=== PATIENT | female | born 1960 | race Caucasian/White ===

== ENCOUNTER 2017-11-11 19:15 | Inpatient (IN) | payer OTHER ==
--- NOTE | 2017-11-11 20:04 | PDOC ---
Rapid Medical Evaluation Time Seen by Provider: 11/11/17 19:58 Medical Evaluation: Allergies Allergy/AdvReac Type Severity Reaction Status Date / Time lamotrigine [From Lamictal] Allergy Verified 02/19/16 11:11 I have performed a brief in-person evaluation of this patient. The patient presents with a chief complaint of: chronic alcoholic here for weakness and fatigue. Dr. Jeong is her PMD and wants her admitted Pertinent physical exam findings: patient is intoxicated I have ordered the following: labs, UA/culture The patient will proceed to the ED for further evaluation.
[2017-11-11 20:42] LABS: BASO % 0.3 % (0-2.0); EOS % 0.2 % (0-4.5); HEMATOCRIT 22.9 % (32.4-45.2); HEMOGLOBIN 7.7 GM/dL (10.7-15.3); LYMPH % 14.3 % (8-40); MCHC 33.7 g/dl (32.0-36.0); MEAN CELL VOLUME 100.9 fl (80-96); MEAN PLT VOLUME 7.8 fl (7.5-11.1); NEUT % 74.2 % (42.8-82.8); RBC 2.27 M/mm3 (3.60-5.2); RDW 16.5 % (11.6-15.6); WHITE BLOOD COUNT 3.4 K/mm3 (4.0-10.0)
[2017-11-11 20:47] LABS: PLATELET COUNT 17 K/MM3 (134-434)
[2017-11-11 21:21] LABS: ALBUMIN 3.2 g/dl (3.4-5.0); ANION GAP 15 (8-16); BILIRUBIN,TOTAL 3.6 mg/dL (0.2-1.0); BLOOD UREA NITROGEN 15 mg/dL (7-18); CALCIUM 7.7 mg/dL (8.5-10.1); CHLORIDE 102 mmol/L (98-107); CO2 19 mmol/L (21-32); CREATININE 1.3 mg/dL (0.55-1.02); GLUCOSE,RANDOM 204 mg/dL (74-106); POTASSIUM 3.5 mmol/L (3.5-5.1); SGOT/AST 94 U/L (15-37); SGPT/ALT 23 U/L (12-78); SODIUM 136 mmol/L (136-145); TOT PROT 7.7 g/dl (6.4-8.2)
[2017-11-11 21:24] LABS: ALK PHOS 186 U/L (45-117); N-TERMINAL BNP 22.95 pg/ml (5-125)
[2017-11-11 23:17] LABS: INR 1.49 (0.82-1.09); PROTHROMBIN TIME (PATIENT) 16.8 SEC (9.98-11.88)
[2017-11-12 00:02] LABS: URINE APPEARANCE CLEAR; URINE BILIRUBIN NEGATIVE (<2.0 mg/dL); URINE BLOOD 1+ (NEGATIVE); URINE COLOR YELLOW; URINE GLUCOSE (UA) NEGATIVE (NEGATIVE); URINE KETONE TRACE (NEGATIVE); URINE NITRITE NEGATIVE (NEGATIVE); URINE PROTEIN NEGATIVE (NEGATIVE); URINE UROBILINOGEN 4.0 E.U/dl mg/dL (0.2-1.0)
[2017-11-12 00:08] LABS: URINE LEUK ESTERASE 1+ (NEGATIVE)
[2017-11-12 00:09] LABS: EPI CELLS RARE /HPF (FEW); URINE BACTERIA MANY /hpf (NONE SEEN)
--- NOTE | 2017-11-12 00:19 | PDOC ---
History of Present Illness - General History Source: Patient Exam Limitations: Intoxication - History of Present Illness Initial Comments: The patient is a 56 year old female accompanied with her boyfriend, with a significant past medical history of Cirrhosis, hypothyroid disease, thrombocytopenia, anemia, and acid reflux who presents to the emergency department for evaluation of chronic episodes of generalized weakness. The patient is a poor historian due to intoxication at presentation (alcohol in breath). The patients boyfriend reports she has been falling and that her legs have been weak. The patients boyfriend reports her nose has been bleeding for some time. He denies witnessing any falls or trauma today. The patient denies chest pain, shortness of breath, headache, and dizziness. Allergies: Lamotrigine Past surgical history: 3x . Social history: Alcohol consumption noted to be 1 pint of whiskey daily. Use of cocaine reported. No reported cigarette use. PCP: Dr. Jeong Contact: Ten Pathak [phone] <Jaden Abreu - Last Filed: 11/12/17 02:02> <Brigitte Arboleda - Last Filed: 11/12/17 02:13> - General Chief Complaint: Weakness Stated Complaint: FATIGUE Time Seen by Provider: 11/11/17 19:58 Past History <Jaden Abreu - Last Filed: 11/12/17 02:02> - Past Medical History Anemia: No Asthma: No Cancer: No Cardiac Disorders: No CVA: No COPD: No CHF: No Dementia: No Diabetes: No GI Disorders: Yes (ACID REFLUX) Disorders: No HTN: No Hypercholesterolemia: No Kidney Stones: No Liver Disease: Yes (Cirrhosis) Seizures: No Thyroid Disease: Yes (HYPOTHYROID DISEASE) - Surgical History Abdominal Surgery: No Appendectomy: No Cardiac Surgery: No Cholecystectomy: No Lung Surgery: No Neurologic Surgery: No Orthopedic Surgery: Yes (L ankle 12/08) - Reproductive History PID: No - Suicide/Smoking/Psychosocial Hx Smoking Status: No Smoking History: Never smoked Have you smoked in the past 12 months: No Number of Cigarettes Smoked Daily: 0 Information on smoking cessation initiated: No Hx Alcohol Use: Yes (1 pint whiskey daily) Drug/Substance Use Hx: No Substance Use Type: Alcohol, Cocaine Hx Substance Use Treatment: Yes <Brigitte Arboleda - Last Filed: 11/12/17 02:13> - Past Medical History Allergies/Adverse Reactions: Allergies Allergy/AdvReac Type Severity Reaction Status Date / Time lamotrigine [From Lamictal] Allergy Verified 11/11/17 20:04 Abd/GI Specific PMHX - Complaint Specific PMHX Colitis: No Diverticulitis: No Gall Bladder Disease: No GERD: Yes Hepatitis: No Irritable Bowel Synd (IBS): No Pancreatitis: Yes (TX IN AT AGE 47 YRS OLD.) GI Ulcer Disease: No <Brigitte Arboleda - Last Filed: 11/12/17 02:13> Review of Systems - Review of Systems Able to Perform ROS?: No (Intoxicated.) Comments:: ROS is unable to be obtained due to patients current mental status: inebriated. <Jaden Abreu - Last Filed: 11/12/17 02:02> *Physical Exam - Vital Signs Last Vital Signs Temp Pulse Resp BP Pulse Ox 97.9 F 85 18 145/77 99 11/12/17 00:09 11/12/17 00:09 11/12/17 00:09 11/12/17 00:09 11/12/17 00:09 - Physical Exam Comments: GENERAL: (+)Intoxicated. (+)Ataxic. Well developed and well nourished. HEENT: (+)Dried blood in nares. No scalp lacerations or hematoma. Normocephalic, atraumatic. PERRLA, EOMI. No conjunctival pallor. Sclera are non- icteric. NECK: Supple. Full ROM. No JVD. Carotid pulses 2+ and symmetric, without bruits. No thyromegaly. No lymphadenopathy. CARDIOVASCULAR: Regular rate and rhythm. No murmurs, rubs, or gallops. Distal pulses are 2+ and symmetric. PULMONARY: No evidence of respiratory distress. Lungs clear to auscultation bilaterally. No wheezing, rales or rhonchi. ABDOMINAL: (+)Ecchymosis in right lower abdomen. Soft. Non-tender. Non-distended. No rebound or guarding. No organomegaly. Normoactive bowel sounds. MUSCULOSKELETAL Normal range of motion at all joints. No bony deformities or tenderness. No CVA tenderness. BACK: (+)Right flank 10cm x 10cm ecchymosis. (+)Upper right rib cage 4cm x 10cm ecchymosis. EXTREMITIES: (+)Scattered ecchymosis on extremities.No cyanosis. No clubbing. No calf tenderness. SKIN: Warm and dry. Normal capillary refill. No rashes. No jaundice. NEUROLOGICAL: Alert, awake, appropriate. Cranial nerves 2-12 intact. No deficits to light touch and temperature in face, upper extremities and lower extremities. No motor deficits in the in face, upper extremities and lower extremities. Normoreflexic in the upper and lower extremities. Unsteady gait. Conversant. PSYCHIATRIC: EtOH intoxication. Good eye contact. <Jaden Abreu - Last Filed: 11/12/17 02:02> - Vital Signs Last Vital Signs Temp Pulse Resp BP Pulse Ox 97.9 F 85 18 145/77 99 11/12/17 00:09 11/12/17 00:09 11/12/17 00:09 11/12/17 00:09 11/12/17 00:09 <Brigitte Arboleda - Last Filed: 11/12/17 02:13> ED Treatment Course - LABORATORY CBC & Chemistry Diagram: 11/11/17 20:26 11/11/17 20:26 - ADDITIONAL ORDERS Additional order review: Laboratory Results 11/11/17 11/11/17 11/11/17 23:49 23:43 22:56 PT with INR 16.80 H INR 1.49 H Sodium Potassium Chloride Carbon Dioxide Anion Gap BUN Creatinine Creat Clearance w eGFR Random Glucose Calcium Total Bilirubin AST ALT Alkaline Phosphatase Creatine Kinase Creatine Kinase Index CK-MB (CK-2) Troponin I B-Natriuretic Peptide Total Protein Albumin Urine Color Yellow Urine Appearance Clear Urine pH 7.0 Ur Specific [place] 1.004 Urine Protein Negative Urine Glucose (UA) Negative Urine Ketones Trace H Urine Blood 1+ H Urine Nitrite Negative Urine Bilirubin Negative Urine Urobilinogen 4.0 e.u/dl H Ur Leukocyte Esterase 1+ H Urine WBC (Auto) 12 Urine RBC (Auto) 1 Ur Epithelial Cells Rare Urine Bacteria Many Alcohol, Quantitative Blood Type O NEGATIVE Antibody Screen Negative 11/11/17 11/11/17 11/11/17 22:56 22:56 20:26 PT with INR INR Sodium Potassium Chloride Carbon Dioxide Anion Gap BUN Creatinine Creat Clearance w eGFR Random Glucose Calcium Total Bilirubin AST ALT Alkaline Phosphatase Creatine Kinase 152 Creatine Kinase Index 1.0 CK-MB (CK-2) 1.565 Troponin I < 0.02 B-Natriuretic Peptide Total Protein Albumin Urine Color Urine Appearance Urine pH Ur Specific [place] Urine Protein Urine Glucose (UA) Urine Ketones Urine Blood Urine Nitrite Urine Bilirubin Urine Urobilinogen Ur Leukocyte Esterase Urine WBC (Auto) Urine RBC (Auto) Ur Epithelial Cells Urine Bacteria Alcohol, Quantitative 322.36 H* Blood Type Cancelled Antibody Screen Cancelled 11/11/17 20:26 PT with INR INR Sodium 136 Potassium 3.5 Chloride 102 Carbon Dioxide 19 L Anion Gap 15 BUN 15 Creatinine 1.3 H Creat Clearance w eGFR 42.68 Random Glucose 204 H Calcium 7.7 L Total Bilirubin 3.6 H D AST 94 H ALT 23 Alkaline Phosphatase 186 H Creatine Kinase Creatine Kinase Index CK-MB (CK-2) Troponin I B-Natriuretic Peptide 22.95 Total Protein 7.7 Albumin 3.2 L Urine Color Urine Appearance Urine pH Ur Specific [place] Urine Protein Urine Glucose (UA) Urine Ketones Urine Blood Urine Nitrite Urine Bilirubin Urine Urobilinogen Ur Leukocyte Esterase Urine WBC (Auto) Urine RBC (Auto) Ur Epithelial Cells Urine Bacteria Alcohol, Quantitative Blood Type Antibody Screen 11/11/17 20:26 RBC 2.27 L MCV 100.9 H MCHC 33.7 RDW 16.5 H MPV 7.8 D Neutrophils % 74.2 D Lymphocytes % 14.3 D Monocytes % 11.0 H Eosinophils % 0.2 D Basophils % 0.3 <Jaden Abreu - Last Filed: 11/12/17 02:02> - LABORATORY CBC & Chemistry Diagram: 11/11/17 20:26 11/11/17 20:26 - ADDITIONAL ORDERS Additional order review: Laboratory Results 11/11/17 11/11/17 11/11/17 23:49 22:56 22:56 PT with INR 16.80 H INR 1.49 H Sodium Potassium Chloride Carbon Dioxide Anion Gap BUN Creatinine Creat Clearance w eGFR Random Glucose Calcium Total Bilirubin AST ALT Alkaline Phosphatase Creatine Kinase Creatine Kinase Index CK-MB (CK-2) Troponin I B-Natriuretic Peptide Total Protein Albumin Urine Color Yellow Urine Appearance Clear Urine pH 7.0 Ur Specific [place] 1.004 Urine Protein Negative Urine Glucose (UA) Negative Urine Ketones Trace H Urine Blood 1+ H Urine Nitrite Negative Urine Bilirubin Negative Urine Urobilinogen 4.0 e.u/dl H Ur Leukocyte Esterase 1+ H Urine WBC (Auto) 12 Urine RBC (Auto) 1 Ur Epithelial Cells Rare Urine Bacteria Many Alcohol, Quantitative 322.36 H* Blood Type Antibody Screen 11/11/17 11/11/17 11/11/17 22:56 20:26 20:26 PT with INR INR Sodium 136 Potassium 3.5 Chloride 102 Carbon Dioxide 19 L Anion Gap 15 BUN 15 Creatinine 1.3 H Creat Clearance w eGFR 42.68 Random Glucose 204 H Calcium 7.7 L Total Bilirubin 3.6 H D AST 94 H ALT 23 Alkaline Phosphatase 186 H Creatine Kinase 152 Creatine Kinase Index 1.0 CK-MB (CK-2) 1.565 Troponin I < 0.02 B-Natriuretic Peptide 22.95 Total Protein 7.7 Albumin 3.2 L Urine Color Urine Appearance Urine pH Ur Specific [place] Urine Protein Urine Glucose (UA) Urine Ketones Urine Blood Urine Nitrite Urine Bilirubin Urine Urobilinogen Ur Leukocyte Esterase Urine WBC (Auto) Urine RBC (Auto) Ur Epithelial Cells Urine Bacteria Alcohol, Quantitative Blood Type Cancelled Antibody Screen Cancelled 11/11/17 20:26 RBC 2.27 L MCV 100.9 H MCHC 33.7 RDW 16.5 H MPV 7.8 D Neutrophils % 74.2 D Lymphocytes % 14.3 D Monocytes % 11.0 H Eosinophils % 0.2 D Basophils % 0.3 - RADIOLOGY Radiology Studies Ordered: Category Date Time Status ABDOMEN & PELVIS CT W/O CONTR [CT] Stat CT Scan 11/11/17 22:44 Taken CHEST X-RAY PORTABLE* [RAD] Stat Radiology 11/11/17 23:33 Taken <Brigitte Arboleda - Last Filed: 11/12/17 02:13> Medical Decision Making - Critical Care Time Total Critical Care Time (minutes): 60 Critical Care Statement: The care of this patient involved high complexity decision making to prevent further life threatening deterioration of the patient 's condition and/or to evaluate & treat vital organ system(s) failure or risk of failure. - Medical Decision Making Consulted with Dr. Lee at 22:35. <Jaden Abreu - Last Filed: 11/12/17 02:02> - Medical Decision Making 11/12/17 00:19 56-year-old female presents with chief complaint of weakness. Past medical history significant of liver cirrhosis, chronic alcoholism, chronic thrombocytopenia. Patient has extensive ecchymosis to her flank, abdomen and scattered ecchymosis to her extremities, dry blood in her nares, Patient denies any recent trauma on, she denies falling and hitting her head. However, she is alcohol level above 300. I did speak with her boyfriend . He is not aware of her any falling this evening. Hemoglobin is 7, but her platelets are only 17,000. 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 She also will receive 1 unit of packed RBCs 11/12/17 00:49 INR is less than 2, it is equal to 1.49. Therefore, no vitamin K given emergently. CAT scan of the abdomen and pelvis shows splenomegaly with trace perihepatic ascites, cirrhosis, gallstones. There is no retroperitoneal hematoma. Abdominal wall posterior gluteal subcutaneous densities that maybe related to medical injections. 11/12/17 00:56 IVF, "bannana bag " ordered Patient got out bed and urinated on the floor,she was walking in the hallway- she is a fall risk and will be given chemical restrain with ativan for her safety 11/12/17 02:09 <Brigitte Arboleda - Last Filed: 11/12/17 02:13> *DC/Admit/Observation/Transfer - Attestations Scribe Attestion: Documentation prepared by Jaden Abreu, acting as medical manager for Brigitte Arboleda MD. <Jaden Abreu - Last Filed: 11/12/17 02:02> <Brigitte Arboleda - Last Filed: 11/12/17 02:13> Diagnosis at time of Disposition: Decreased platelet count, Intoxication, Advanced cirrhosis of liver, Splenomegaly, Epistaxis
--- NOTE | 2017-11-12 00:37 | HP ---
CHIEF COMPLAINT: Fatigue, Weakness, Alcohol Intoxication PCP: Dr. Jeong HISTORY OF PRESENT ILLNESS: This is a 56 y/o woman with a PMHx of Chronic Alcoholism, Chronic Thrombocytopenia, Liver Cirrhosis, Cocaine Abuse, GERd, Thyroid Disease, Pancreatitis. Who presents to the ED with weakness, fatigue, alcohol intoxication. Patient reports drinking 1 pint of whiskey daily. She reports falling recently, denies LOC or head trauma. 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 History: Father: Alcoholism, DM Mother: CABG 50's 3 Siblings, 3 healthy children Allergies lamotrigine [From Lamictal] Allergy (Verified 11/11/17 20:04) HOME MEDICATIONS: Home Medications Medication Instructions Recorded Omeprazole Magnesium [Prilosec 20 mg PO DAILY 09/17/13 (OTC)] Calcium Carbonate/Vitamin D3 1 each PO DAILY 03/18/16 [Calcium 600-Vit D3 200 Tablet] Vitamin B Complex 1 cap PO DAILY 03/18/16 Zolpidem Tartrate [Ambien] 10 mg PO HS PRN 03/18/16 Chlordiazepoxide [Librium -] 10 mg PO [id number] #8 capsule MDD 05/17/16 40mg Chlordiazepoxide [Librium -] 15 mg PO [id number] #6 capsule MDD 05/17/16 40mg Folic Acid - 1 mg PO DAILY #30 tablet 05/17/16 Levothyroxine [Synthroid -] 100 mcg PO DAILY #90 tablet 05/17/16 REVIEW OF SYSTEMS CONSTITUTIONAL: generalized weakness, malaise Absent: fever, chills, diaphoresis, loss of appetite, weight change HEENT: Absent: rhinorrhea, nasal congestion, throat pain, throat swelling, difficulty swallowing, mouth swelling, ear pain, eye pain, visual changes CARDIOVASCULAR: Absent: chest pain, syncope, palpitations, irregular heart rate, lightheadedness , peripheral edema RESPIRATORY: Absent: cough, shortness of breath, dyspnea with exertion, orthopnea, wheezing, stridor, hemoptysis GASTROINTESTINAL: Absent: abdominal pain, abdominal distension, nausea, vomiting, diarrhea, constipation, melena, hematochezia GENITOURINARY: Absent: dysuria, frequency, urgency, hesitancy, hematuria, flank pain, genital pain MUSCULOSKELETAL: Absent: myalgia, arthralgia, joint swelling, back pain, neck pain SKIN: Absent: rash, itching, pallor HEMATOLOGIC/IMMUNOLOGIC: Absent: easy bleeding, easy bruising, lymphadenopathy, frequent infections ENDOCRINE: Absent: unexplained weight gain, unexplained weight loss, heat intolerance, cold intolerance NEUROLOGIC: unsteady gait, Absent: headache, focal weakness or paresthesias, dizziness, seizure, mental status changes, bladder or bowel incontinence PSYCHIATRIC: Absent: anxiety, depression, suicidal or homicidal ideation, hallucinations. PHYSICAL EXAMINATION Vital Signs - 24 hr 11/11/17 11/11/17 11/12/17 20:05 20:07 00:09 Temperature 98.3 F 97.9 F Pulse Rate 102 H Pulse Rate [ 85 Right Radial] Respiratory 20 20 18 Rate Blood Pressure 146/94 Blood Pressure 145/77 [Right Arm] O2 Sat by Pulse 100 100 99 Oximetry (%) GENERAL: Lethargic but arosuable, in no acute distress. HEAD: Normal with no signs of trauma. EYES: Sclera icteric, pupils equal, round and reactive to light, conjunctiva clear. No lid lag. EARS, NOSE, THROAT: nares patent, dried blood Ears normal, oropharynx clear without exudates. Moist mucous membranes. NECK: Normal range of motion, supple without lymphadenopathy, JVD, or masses. LUNGS: Breath sounds equal, clear to auscultation bilaterally. No wheezes, and no crackles. No accessory muscle use. HEART: Regular rate and rhythm, normal S1 and S2 without murmur, rub or gallop. ABDOMEN: distended, hypoactive bowel sounds,hepatomegaly. Soft, nontender, no guarding, no rebound, no masses. splenomegaly. MUSCULOSKELETAL: Normal range of motion at all joints. No bony deformities or tenderness. No CVA tenderness. UPPER EXTREMITIES: 2+ pulses, warm, well-perfused. No cyanosis. No clubbing. No peripheral edema. LOWER EXTREMITIES: 2+ pulses, warm, well-perfused. No calf tenderness. No peripheral edema. NEUROLOGICAL: Cranial nerves II-XII intact. Normal speech. Gait not observed. PSYCHIATRIC: Cooperative. Limited eye contact. Appropriate mood and affect. SKIN: Eccyhmotic bruising to abdomen, L- posterior scapula noted, Warm, dry, normal turgor, no rashes. normal capillary refill. Laboratory Results - last 24 hr 11/11/17 11/11/17 11/11/17 20:26 20:26 20:26 WBC 3.4 L D RBC 2.27 L Hgb 7.7 L D Hct 22.9 L D MCV 100.9 H MCH 34.0 H MCHC 33.7 RDW 16.5 H Plt Count 17 L* D MPV 7.8 D Neutrophils % 74.2 D Lymphocytes % 14.3 D Monocytes % 11.0 H Eosinophils % 0.2 D Basophils % 0.3 PT with INR INR Sodium 136 Potassium 3.5 Chloride 102 Carbon Dioxide 19 L Anion Gap 15 BUN 15 Creatinine 1.3 H Creat Clearance w eGFR 42.68 Random Glucose 204 H Calcium 7.7 L Total Bilirubin 3.6 H D AST 94 H ALT 23 Alkaline Phosphatase 186 H Creatine Kinase 152 Creatine Kinase Index 1.0 CK-MB (CK-2) 1.565 Troponin I < 0.02 B-Natriuretic Peptide 22.95 Total Protein 7.7 Albumin 3.2 L Urine Color Urine Appearance Urine pH Ur Specific [place] Urine Protein Urine Glucose (UA) Urine Ketones Urine Blood Urine Nitrite Urine Bilirubin Urine Urobilinogen Ur Leukocyte Esterase Urine WBC (Auto) Urine RBC (Auto) Ur Epithelial Cells Urine Bacteria Alcohol, Quantitative Blood Type Antibody Screen 11/11/17 11/11/17 11/11/17 22:56 22:56 22:56 WBC RBC Hgb Hct MCV MCH MCHC RDW Plt Count MPV Neutrophils % Lymphocytes % Monocytes % Eosinophils % Basophils % PT with INR 16.80 H INR 1.49 H Sodium Potassium Chloride Carbon Dioxide Anion Gap BUN Creatinine Creat Clearance w eGFR Random Glucose Calcium Total Bilirubin AST ALT Alkaline Phosphatase Creatine Kinase Creatine Kinase Index CK-MB (CK-2) Troponin I B-Natriuretic Peptide Total Protein Albumin Urine Color Urine Appearance Urine pH Ur Specific [place] Urine Protein Urine Glucose (UA) Urine Ketones Urine Blood Urine Nitrite Urine Bilirubin Urine Urobilinogen Ur Leukocyte Esterase Urine WBC (Auto) Urine RBC (Auto) Ur Epithelial Cells Urine Bacteria Alcohol, Quantitative 322.36 H* Blood Type Cancelled Antibody Screen Cancelled 11/11/17 11/11/17 23:43 23:49 WBC RBC Hgb Hct MCV MCH MCHC RDW Plt Count MPV Neutrophils % Lymphocytes % Monocytes % Eosinophils % Basophils % PT with INR INR Sodium Potassium Chloride Carbon Dioxide Anion Gap BUN Creatinine Creat Clearance w eGFR Random Glucose Calcium Total Bilirubin AST ALT Alkaline Phosphatase Creatine Kinase Creatine Kinase Index CK-MB (CK-2) Troponin I B-Natriuretic Peptide Total Protein Albumin Urine Color Yellow Urine Appearance Clear Urine pH 7.0 Ur Specific [place] 1.004 Urine Protein Negative Urine Glucose (UA) Negative Urine Ketones Trace H Urine Blood 1+ H Urine Nitrite Negative Urine Bilirubin Negative Urine Urobilinogen 4.0 e.u/dl H Ur Leukocyte Esterase 1+ H Urine WBC (Auto) 12 Urine RBC (Auto) 1 Ur Epithelial Cells Rare Urine Bacteria Many Alcohol, Quantitative Blood Type O NEGATIVE Antibody Screen Negative ASSESSMENT/PLAN: This is a 56 y/o woman Admitted to ICU for Severe Thrombocytopenia, Chronic Alcohol Abuse 1. Heme Severe Thrombocytopenia - Likely secondary to Chronic Alcohol use - Continue cardiac monitoring - Platelets given in ED - Appreciate Heme consult - Repeat CBC in am - Stool Occult-pending 2. Chronic Alcohol Abuse - Alcohol 323 - CIWAr 8 - Banana Bag started in ED - Librium Protocol - Appreciate Detox consult - Fall Precautions - Seizure Precautions - Cardiac Monitoring - Monitor BMP - Thiamine, Folic, MVI daily - Alcohol Cessation 3. Cirrhosis of Liver - MELD 20 - Continue to monitor and treat with interventions accordingly 4. Hypothyroid Disorder - TSH in am - not on current med 5. Pancreatitis - stable - Continue to monitor 6. GERD - Continue PPI 7. FEN - Replete lytes prn - Regular as tolerated 8. DVT ppx - SCDs - Hold AC secondary to severe thrombocytopenia Code Status: Full Code Dispo: Requires Inpatient Care Problem List - Problem (1) Thrombocytopenia concurrent with and due to alcoholism Code(s): D69.59 - OTHER SECONDARY THROMBOCYTOPENIA; F10.20 - ALCOHOL DEPENDENCE , UNCOMPLICATED (2) Alcohol abuse Code(s): F10.10 - ALCOHOL ABUSE, UNCOMPLICATED (3) Cocaine abuse Code(s): F14.10 - COCAINE ABUSE, UNCOMPLICATED (4) Drug-induced mood disorder Code(s): F19.94 - OTH PSYCHOACTIVE SUBSTANCE USE, UNSP W MOOD DISORDER (5) Advanced cirrhosis of liver Code(s): K74.60 - UNSPECIFIED CIRRHOSIS OF LIVER (6) GERD (gastroesophageal reflux disease) Code(s): K21.9 - GASTRO-ESOPHAGEAL REFLUX DISEASE WITHOUT ESOPHAGITIS Qualifiers: (7) Hypothyroid Code(s): E03.9 - HYPOTHYROIDISM, UNSPECIFIED Qualifiers: (8) DVT prophylaxis Code(s): BIK6672 - Visit type - Emergency Visit Emergency Visit: Yes ED Registration Date: 11/11/17 Care time: The patient presented to the Emergency Department on the above date and was hospitalized for further evaluation of their emergent condition. - New Patient This patient is new to me today: Yes Date on this admission: 11/11/17 - Critical Care Critical Care patient: Yes Total Critical Care Time (in minutes): 45 Critical Care Statement: The care of this patient involved high complexity decision making to prevent further life threatening deterioration of the patient 's condition and/or to evaluate & treat vital organ system(s) failure or risk of failure. Hospitalist Screening - Colonoscopy Questionnaire Colonoscopy Questionnaire: Colonoscopy Questionnaire - Patient: 50 - 75 years old and never had a screening colonoscopy: Unknown History of colon or rectal polyps, or CA: Unknown History of IBD, Crohn's disease or UC: Unknown History of abdominal radiation therapy as a child: Unknown - Relative: 1 with colon or rectal CA, or polyps at age 60 or younger: Unknown Colon or rectal CA diagnosed at age 45 or younger: Unknown Multiple relatives with colon or rectal CA: Unknown - Outcome: Screening Result: Negative Screen
[2017-11-12] MEDS ORDERED: FOLIC ACID INJECTION - 1 MG, THIAMINE HCL 100 MG, MULTIVIT INJECTION ADULT 10 ML in SOD... IVPB ONE (00:48)
[2017-11-12 02:17] VITALS: BMI 27.8
[2017-11-12] MEDS: chlordiazePOXIDE HCL 25 MG CAPSULE PO SCH ×4 (04:22→22:11)
[2017-11-12 06:42] LABS: HEMATOCRIT 17.9 % (32.4-45.2); MCH 34.2 pg (25.7-33.7); MCHC 34.4 g/dl (32.0-36.0); MEAN CELL VOLUME 99.3 fl (80-96); MEAN PLT VOLUME 7.9 fl (7.5-11.1); RDW 16.1 % (11.6-15.6)
[2017-11-12 06:48] LABS: INR 1.53 (0.82-1.09); PROTHROMBIN TIME (PATIENT) 17.3 SEC (9.98-11.88)
[2017-11-12 07:11] LABS: BLOOD UREA NITROGEN 14 mg/dL (7-18); CHLORIDE 107 mmol/L (98-107); CO2 23 mmol/L (21-32); GLUCOSE,RANDOM 125 mg/dL (74-106); POTASSIUM 3.1 mmol/L (3.5-5.1); SODIUM 141 mmol/L (136-145)
[2017-11-12 07:12] LABS: ANION GAP 11 (8-16); CALCIUM 7.2 mg/dL (8.5-10.1); MAGNESIUM 1.4 mg/dL (1.8-2.4); PHOSPHOROUS 2.3 mg/dL (2.5-4.9)
[2017-11-12 07:15] LABS: HEMOGLOBIN 6.2 GM/dL (10.7-15.3); PLATELET COUNT 13 K/MM3 (134-434)
[2017-11-12 07:22] LABS: CREATININE 1.1 mg/dL (0.55-1.02)
[2017-11-12] MEDS ORDERED: PANTOPRAZOLE SODIUM 40 MG VIAL IVPUSH ONE (07:31)
[2017-11-12] MEDS ORDERED: PANTOPRAZOLE SODIUM 80 MG in SODIUM CHLORIDE 100 ML IVPB SCH (07:45)
[2017-11-12] MEDS: OCTREOTIDE ACETATE 1,200 MCG in DEXTROSE 5%-WATER - 488 ML IVPB SCH (07:45)
[2017-11-12] MEDS ORDERED: MAGNESIUM SULF 50% (8.12 MEQ/2 ML-1 GM VIAL) IVPB ONE (08:34)
[2017-11-12 08:55] LABS: COCAINE, UR NEGATIVE ng/ml (CUTOFF=300); METHADONE, UR NEGATIVE ng/ml (CUTOFF=300); OPIATES, URI NEGATIVE ng/ml (CUTOFF=300); PHENCYCLIDINE,URINE NEGATIVE ng/ml (CUTOFF=25); URINE AMPHETAMINES NEGATIVE ng/ml (CUTOFF=500); URINE BARBITURATES NEGATIVE ng/ml (CUTOFF=200); URINE BENZODIAZEPINES NEGATIVE ng/ml (CUTOFF=200)
[2017-11-12] MEDS ORDERED: PANTOPRAZOLE SODIUM 160 MG in DEXTROSE 5%-WATER - 290 ML IVPB SCH (09:00)
[2017-11-12] MEDS: PANTOPRAZOLE SODIUM 160 MG in SODIUM CHLORIDE 290 ML IVPB SCH (09:00)
[2017-11-12] MEDS ORDERED: MAGNESIUM SULFATE IN WATER 2 GM/50 ML IVPB IVPB ONE (09:00)
[2017-11-12] MEDS: KCL 10 MEQ IVPB 10 MEQ/100 ML INFUS.BAG IVPB SCH ×4 (09:15→12:28)
--- NOTE | 2017-11-12 09:20 | PN ---
Progress Note (short form) - Note Progress Note: 56F w/ hx of liver cirrhosis, chronic alcoholism, chronic thrombocytopenia, GERD , pancreatitis, and thyroid disease who presented with weakness, fatigue, and alcohol intoxication and being treated for acute alcoholism/alcohol WD. hematology called for pancytopenia. 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 Pt seen and examined. +Dry mouth +fatigue +tremors. O/E: GEneral: Poor hygeine, +alcohol breath HEENT: NCAT Abd: NT, no ascites Extre: no CCE Neuro; Awake, +tremors positive Last Vital Signs Temp Pulse Resp BP Pulse Ox 97.6 F 109 H 22 119/53 99 11/12/17 06:00 11/12/17 06:00 11/12/17 06:00 11/12/17 06:00 11/12/17 02:16 CBC, BMP 11/12/17 06:05 11/12/17 06:05 Current Medications Generic Name Dose Route Start Last Admin Trade Name Freq PRN Reason Stop Dose Admin Chlordiazepoxide HCl 50 mg 11/12/17 05:00 11/12/17 04:22 Librium - PO 11/12/17 23:01 50 mg [id number] [place] Administration Chlordiazepoxide HCl 25 mg 11/13/17 05:00 Librium - PO 11/13/17 23:01 [id number] [place] Chlordiazepoxide HCl 15 mg 11/14/17 05:00 Librium - PO 11/14/17 23:01 [id number] [place] Chlordiazepoxide HCl 25 mg 11/12/17 02:24 Librium - PO 11/15/17 02:23 Q4H PRN WITHDRAWAL(CONT SUBST) Chlorhexidine Gluconate 1 applic 11/12/17 22:00 Hibiclens For Decolonization - TP HS [place] Octreotide Acetate 1,200 mcg/ 500 mls @ 20.83 mls/hr 11/12/17 07:45 Dextrose IVPB ASDIR [place] 50 MCG/HR Potassium Chloride 10 meq in 100 mls @ 100 mls/hr 11/12/17 09:15 Potassium Chloride 10 Meq Premix Ivpb - IVPB 11/12/17 13:14 Q60M [place] Magnesium Sulfate 2 gm in 50 mls @ 50 mls/hr 11/12/17 09:00 Magnesium Sulf 2 G/50 Ml Bag IVPB 11/12/17 09:59 ONCE ONE Pantoprazole Sodium 160 mg/ 290 mls @ 14.5 mls/hr 11/12/17 09:00 Sodium Chloride IVPB Q20H [place] Mupirocin 1 applic 11/12/17 10:00 Bactroban Ointment (For Decolonization) - NS 11/17/17 09:59 BID [place] Phytonadione 5 mg 11/12/17 09:17 Aqua Mephyton Injection - IVPB 11/12/17 09:18 ONCE ONE coagulopathy/pancytopenia from underlying cirrhosis ESLD/portal HTN/ Hypersplenism. Supportive transfusion give Platelets/PRBC/vit K now check fibrinogen , if fibrinogen <100, give cryp on PPI/Octrotide GI f.u alcohol WD protocol
[2017-11-12] MEDS ORDERED: PHYTONADIONE 10 MG/1 ML AMP IVPB ONE (09:30)
--- NOTE | 2017-11-12 09:36 | CONSULT ---
Consultation: REQUESTING PROVIDER: CONSULT REQUEST: We have been asked to medically evaluate this patient for anemia and thrombocytopenia. HISTORY OF PRESENT ILLNESS: 56F w/ hx of liver cirrhosis, chronic alcoholism, chronic thrombocytopenia, GERD , pancreatitis, and thyroid disease who presented with weakness, fatigue, and alcohol intoxication. Pt denies headache, lightheadedness, chest pain, SOB, abdominal pain, melena, hematochezia, hematemesis, and dysuria. She endorses dark stools (not black, tarry, or bloody/red), nausea and NBNB emesis before coming to the hospital, but not since being hospitalized. Her only current complaint is a feeling of fatigue and weakness. She reports drinking more than 1 pint of whiskey daily. Since coming to the hospital, she was given 1 unit of platelets for level in the teens. REVIEW OF SYSTEMS: CONSTITUTIONAL: Absent: fever, chills, diaphoresis, malaise, loss of appetite, weight change Present: generalized weakness HEENT: Absent: rhinorrhea, nasal congestion, throat pain, throat swelling, difficulty swallowing, mouth swelling, ear pain, eye pain, visual changes CARDIOVASCULAR: Absent: chest pain, syncope, palpitations, irregular heart rate, lightheadedness , peripheral edema RESPIRATORY: Absent: cough, shortness of breath, dyspnea with exertion, orthopnea, wheezing, stridor, hemoptysis GASTROINTESTINAL: Absent: abdominal pain, abdominal distension, nausea, vomiting, diarrhea, constipation, melena, hematochezia GENITOURINARY: Absent: dysuria, frequency, urgency, hesitancy, hematuria, flank pain, genital pain MUSCULOSKELETAL: Absent: myalgia, arthralgia, joint swelling, back pain, neck pain SKIN: Absent: rash, itching, pallor HEMATOLOGIC/IMMUNOLOGIC: Absent: easy bleeding, easy bruising, lymphadenopathy, frequent infections ENDOCRINE: Absent: unexplained weight gain, unexplained weight loss, heat intolerance, cold intolerance NEUROLOGIC: Absent: headache, focal weakness or paresthesias, dizziness, unsteady gait, seizure, mental status changes, bladder or bowel incontinence PSYCHIATRIC: Absent: anxiety, depression, suicidal or homicidal ideation, hallucinations. PHYSICAL EXAMINATION Vital Signs - 24 hr 11/11/17 11/11/17 11/12/17 20:05 20:07 00:09 Temperature 98.3 F 97.9 F Pulse Rate 102 H Pulse Rate [ 85 Right Radial] Respiratory 20 20 18 Rate Blood Pressure 146/94 Blood Pressure 145/77 [Right Arm] O2 Sat by Pulse 100 100 99 Oximetry (%) 11/12/17 11/12/17 11/12/17 01:30 02:16 04:00 Temperature 97.6 F Pulse Rate 84 102 H 104 H Pulse Rate [ Right Radial] Respiratory 18 15 20 Rate Blood Pressure 106/56 135/46 111/71 Blood Pressure [Right Arm] O2 Sat by Pulse 91 L 99 Oximetry (%) 11/12/17 06:00 Temperature 97.6 F Pulse Rate 109 H Pulse Rate [ Right Radial] Respiratory 22 Rate Blood Pressure 119/53 Blood Pressure [Right Arm] O2 Sat by Pulse Oximetry (%) GENERAL: middle aged female, lying in bed, AAOx3, in NAD HEENT: scleral icterus, dry mucous membranes LUNGS: CTAB, no wheezing or rhonchi HEART: systolic murmur, tachycardic ABDOMEN: large ecchymoses over abdomen and flank, soft, NT, ND MUSCULOSKELETAL: trace LE edema NEUROLOGICAL: Cranial nerves II-XII intact. Normal speech. asterixis present. + [id number] test Laboratory Results - last 24 hr 11/11/17 11/11/17 11/11/17 20:26 20:26 20:26 WBC 3.4 L D RBC 2.27 L Hgb 7.7 L D Hct 22.9 L D MCV 100.9 H MCH 34.0 H MCHC 33.7 RDW 16.5 H Plt Count 17 L* D MPV 7.8 D Neutrophils % 74.2 D Lymphocytes % 14.3 D Monocytes % 11.0 H Eosinophils % 0.2 D Basophils % 0.3 PT with INR INR Sodium 136 Potassium 3.5 Chloride 102 Carbon Dioxide 19 L Anion Gap 15 BUN 15 Creatinine 1.3 H Creat Clearance w eGFR 42.68 Random Glucose 204 H Calcium 7.7 L Phosphorus Magnesium Ferritin Total Bilirubin 3.6 H D AST 94 H ALT 23 Alkaline Phosphatase 186 H Creatine Kinase 152 Creatine Kinase Index 1.0 CK-MB (CK-2) 1.565 Troponin I < 0.02 B-Natriuretic Peptide 22.95 Total Protein 7.7 Albumin 3.2 L TSH Urine Color Urine Appearance Urine pH Ur Specific [place] Urine Protein Urine Glucose (UA) Urine Ketones Urine Blood Urine Nitrite Urine Bilirubin Urine Urobilinogen Ur Leukocyte Esterase Urine WBC (Auto) Urine RBC (Auto) Ur Epithelial Cells Urine Bacteria Opiates Screen Methadone Screen Barbiturate Screen Phencyclidine Screen Ur Amphetamines Screen MDMA (Ecstasy) Screen Benzodiazepines Screen Cocaine Screen U Marijuana (THC) Screen Alcohol, Quantitative Blood Type Antibody Screen Crossmatch 11/11/17 11/11/17 11/11/17 22:56 22:56 22:56 WBC RBC Hgb Hct MCV MCH MCHC RDW Plt Count MPV Neutrophils % Lymphocytes % Monocytes % Eosinophils % Basophils % PT with INR 16.80 H INR 1.49 H Sodium Potassium Chloride Carbon Dioxide Anion Gap BUN Creatinine Creat Clearance w eGFR Random Glucose Calcium Phosphorus Magnesium Ferritin Total Bilirubin AST ALT Alkaline Phosphatase Creatine Kinase Creatine Kinase Index CK-MB (CK-2) Troponin I B-Natriuretic Peptide Total Protein Albumin TSH Urine Color Urine Appearance Urine pH Ur Specific [place] Urine Protein Urine Glucose (UA) Urine Ketones Urine Blood Urine Nitrite Urine Bilirubin Urine Urobilinogen Ur Leukocyte Esterase Urine WBC (Auto) Urine RBC (Auto) Ur Epithelial Cells Urine Bacteria Opiates Screen Methadone Screen Barbiturate Screen Phencyclidine Screen Ur Amphetamines Screen MDMA (Ecstasy) Screen Benzodiazepines Screen Cocaine Screen U Marijuana (THC) Screen Alcohol, Quantitative 322.36 H* Blood Type Cancelled Antibody Screen Cancelled Crossmatch 11/11/17 11/11/17 11/12/17 23:43 23:49 03:00 WBC RBC Hgb Hct MCV MCH MCHC RDW Plt Count MPV Neutrophils % Lymphocytes % Monocytes % Eosinophils % Basophils % PT with INR INR Sodium Potassium Chloride Carbon Dioxide Anion Gap BUN Creatinine Creat Clearance w eGFR Random Glucose Calcium Phosphorus Magnesium Ferritin 66.514 Total Bilirubin AST ALT Alkaline Phosphatase Creatine Kinase Creatine Kinase Index CK-MB (CK-2) Troponin I B-Natriuretic Peptide Total Protein Albumin TSH Urine Color Yellow Urine Appearance Clear Urine pH 7.0 Ur Specific [place] 1.004 Urine Protein Negative Urine Glucose (UA) Negative Urine Ketones Trace H Urine Blood 1+ H Urine Nitrite Negative Urine Bilirubin Negative Urine Urobilinogen 4.0 e.u/dl H Ur Leukocyte Esterase 1+ H Urine WBC (Auto) 12 Urine RBC (Auto) 1 Ur Epithelial Cells Rare Urine Bacteria Many Opiates Screen Methadone Screen Barbiturate Screen Phencyclidine Screen Ur Amphetamines Screen MDMA (Ecstasy) Screen Benzodiazepines Screen Cocaine Screen U Marijuana (THC) Screen Alcohol, Quantitative Blood Type O NEGATIVE Antibody Screen Negative Crossmatch See Detail 11/12/17 11/12/17 11/12/17 06:05 06:05 06:05 WBC 2.0 L D RBC 1.80 L D Hgb 6.2 L* D Hct 17.9 L D MCV 99.3 H MCH 34.2 H MCHC 34.4 RDW 16.1 H Plt Count 13 L* D MPV 7.9 Neutrophils % No Result Required. Lymphocytes % No Result Required. Monocytes % Eosinophils % Basophils % PT with INR 17.30 H INR 1.53 H Sodium 141 Potassium 3.1 L Chloride 107 Carbon Dioxide 23 Anion Gap 11 BUN 14 Creatinine 1.1 H Creat Clearance w eGFR Random Glucose 125 H Calcium 7.2 L Phosphorus 2.3 L Magnesium 1.4 L Ferritin Total Bilirubin AST ALT Alkaline Phosphatase Creatine Kinase Creatine Kinase Index CK-MB (CK-2) Troponin I B-Natriuretic Peptide Total Protein Albumin TSH 0.99 Urine Color Urine Appearance Urine pH Ur Specific [place] Urine Protein Urine Glucose (UA) Urine Ketones Urine Blood Urine Nitrite Urine Bilirubin Urine Urobilinogen Ur Leukocyte Esterase Urine WBC (Auto) Urine RBC (Auto) Ur Epithelial Cells Urine Bacteria Opiates Screen Methadone Screen Barbiturate Screen Phencyclidine Screen Ur Amphetamines Screen MDMA (Ecstasy) Screen Benzodiazepines Screen Cocaine Screen U Marijuana (THC) Screen Alcohol, Quantitative Blood Type Antibody Screen Crossmatch 11/12/17 08:30 WBC RBC Hgb Hct MCV MCH MCHC RDW Plt Count MPV Neutrophils % Lymphocytes % Monocytes % Eosinophils % Basophils % PT with INR INR Sodium Potassium Chloride Carbon Dioxide Anion Gap BUN Creatinine Creat Clearance w eGFR Random Glucose Calcium Phosphorus Magnesium Ferritin Total Bilirubin AST ALT Alkaline Phosphatase Creatine Kinase Creatine Kinase Index CK-MB (CK-2) Troponin I B-Natriuretic Peptide Total Protein Albumin TSH Urine Color Urine Appearance Urine pH Ur Specific [place] Urine Protein Urine Glucose (UA) Urine Ketones Urine Blood Urine Nitrite Urine Bilirubin Urine Urobilinogen Ur Leukocyte Esterase Urine WBC (Auto) Urine RBC (Auto) Ur Epithelial Cells Urine Bacteria Opiates Screen Negative Methadone Screen Negative Barbiturate Screen Negative Phencyclidine Screen Negative Ur Amphetamines Screen Negative MDMA (Ecstasy) Screen Negative Benzodiazepines Screen Negative Cocaine Screen Negative U Marijuana (THC) Screen Negative Alcohol, Quantitative Blood Type Antibody Screen Crossmatch Active Medications Generic Name Dose Route Start Last Admin Trade Name Freq PRN Reason Stop Dose Admin Chlordiazepoxide HCl 50 mg 11/12/17 05:00 11/12/17 04:22 Librium - PO 11/12/17 23:01 50 mg [id number] [place] Administration Chlordiazepoxide HCl 25 mg 11/13/17 05:00 Librium - PO 11/13/17 23:01 [id number] [place] Chlordiazepoxide HCl 15 mg 11/14/17 05:00 Librium - PO 11/14/17 23:01 [id number] [place] Chlordiazepoxide HCl 25 mg 11/12/17 02:24 Librium - PO 11/15/17 02:23 Q4H PRN WITHDRAWAL(CONT SUBST) Chlorhexidine Gluconate 1 applic 11/12/17 22:00 Hibiclens For Decolonization - TP HS [place] Octreotide Acetate 1,200 mcg/ 500 mls @ 20.83 mls/hr 11/12/17 07:45 Dextrose IVPB ASDIR [place] 50 MCG/HR Potassium Chloride 10 meq in 100 mls @ 100 mls/hr 11/12/17 09:15 Potassium Chloride 10 Meq Premix Ivpb - IVPB 11/12/17 13:14 Q60M [place] Magnesium Sulfate 2 gm in 50 mls @ 50 mls/hr 11/12/17 09:00 Magnesium Sulf 2 G/50 Ml Bag IVPB 11/12/17 09:59 ONCE ONE Pantoprazole Sodium 160 mg/ 290 mls @ 14.5 mls/hr 11/12/17 09:00 Sodium Chloride IVPB Q20H [place] Mupirocin 1 applic 11/12/17 10:00 Bactroban Ointment (For Decolonization) - NS 11/17/17 09:59 BID [place] ASSESSMENT/PLAN: 56F w/ hx of liver cirrhosis, chronic alcoholism, chronic thrombocytopenia, GERD , pancreatitis, and thyroid disease who presented with weakness, fatigue, and alcohol intoxication, found to have thrombocytopenia and anemia. Neuro #asterixis- 2/2 component of hepatic encephalopathy vs. alcohol withdrawal. Pt is AAOx3, speaking clearly. -continue librium protocol and banana bag -continue to monitor symptoms CV -hemodynamically stable Pulm -satting well on NC -continue to monitor GI #liver cirrhosis- likely 2/2 alcoholism -GI on board, recs appreciated -FOBT: negative Renal #LILIA -creatinine of 1.1, down from 1.3 Heme #thrombocytopenia and anemia- likely 2/2 cirrhosis, less likely due to acute bleed -2 units of platelets and 2 units of PRBCs given -trend Hgb and platelet levels -hematology on board, recs appreciated. f/u fibrinogen. If < 100, give cryo. Give vitamin K for elevated INR. -GI on board, recs appreciated. continue protonix gtt, continue octreotide for 3 days. f/u viral and autoimmune labs. will need endoscopy. FEN/ppx -banana bag fluids @ 125 -Mg and K repleted -NPO -no DVT ppx due to anemia and thrombocytopenia -protonix gtt Case discussed with attending, Dr. Quigley. -Brandyn Willis MD PGY1 ICU Team Visit type - Emergency Visit Emergency Visit: Yes ED Registration Date: 11/12/17 Care time: The patient presented to the Emergency Department on the above date and was hospitalized for further evaluation of their emergent condition. - New Patient This patient is new to me today: Yes Date on this admission: 11/12/17 - Critical Care Critical Care patient: Yes Total Critical Care Time (in minutes): 35 Critical Care Statement: The care of this patient involved high complexity decision making to prevent further life threatening deterioration of the patient 's condition and/or to evaluate & treat vital organ system(s) failure or risk of failure.
--- NOTE | 2017-11-12 09:59 | PN ---
Progress Note, Physician Chief Complaint: Pt lying in bed in no acute distress. Reports weakness/mild sob otherwise appears alert. Denies any chest pain, n/v/d, unilateral weakness. - Current Medication List Current Medications: Active Medications Chlordiazepoxide HCl (Librium -) 50 mg PO [id number] Stop: 11/12/17 23:01 Last Admin: 11/12/17 04:22 Dose: 50 mg Chlordiazepoxide HCl (Librium -) 25 mg PO [id number] [place] Stop: 11/13/17 23:01 Chlordiazepoxide HCl (Librium -) 15 mg PO [id number] [place] Stop: 11/14/17 23:01 Chlordiazepoxide HCl (Librium -) 25 mg PO Q4H PRN PRN Reason: WITHDRAWAL(CONT SUBST) Stop: 11/15/17 02:23 Chlorhexidine Gluconate (Hibiclens For Decolonization -) 1 applic TP HS [place] Octreotide Acetate 1,200 mcg/ (Dextrose) 500 mls @ 20.83 mls/hr IVPB ASDIR [place] PRN Reason: 50 MCG/HR Potassium Chloride (Potassium Chloride 10 Meq Premix Ivpb -) 10 meq in 100 mls @ 100 mls/hr IVPB Q60M [place] Stop: 11/12/17 13:14 Magnesium Sulfate (Magnesium Sulf 2 G/50 Ml Bag) 2 gm in 50 mls @ 50 mls/hr IVPB ONCE ONE Stop: 11/12/17 09:59 Pantoprazole Sodium 160 mg/ (Sodium Chloride) 290 mls @ 14.5 mls/hr IVPB Q20H [facility] Mupirocin (Bactroban Ointment (For Decolonization) -) 1 applic NS BID [facility] Stop: 11/17/17 09:59 - Objective Vital Signs: Vital Signs Temperature 97.6 F 11/12/17 06:00 Pulse Rate 109 H 11/12/17 06:00 Respiratory Rate 22 11/12/17 06:00 Blood Pressure 119/53 11/12/17 06:00 O2 Sat by Pulse Oximetry (%) 99 11/12/17 02:16 Constitutional: Yes: Well Nourished, No Distress, Calm Respiratory: Yes: WNL, Regular, CTA Bilaterally, Diminished, On Nasal O2. No: Accessory Muscle Use, Rales, Rhonchi, Tachypnea, Wheezes Gastrointestinal: Yes: Normal Bowel Sounds, Soft, Abdomen, Obese, Other (right lower abdominal ecchymosis). No: Distention, Melena, Rectal Bleeding, Tenderness, Vomiting Genitourinary: Yes: WNL Edema: No Neurological: Yes: Alert, Oriented Psychiatric: Yes: Alert, Oriented Labs: CBC, BMP 11/12/17 06:05 11/12/17 06:05 INR, PTT INR 1.53 (0.82-1.09) H 11/12/17 06:05 - ....Imaging Chest X-ray: Report Reviewed Cat Scan: Report Reviewed Problem List - Problems (1) Alcoholic cirrhosis of liver Assessment/Plan: admitted w/ severe pancytopenia abd CT w/ cirrhosis, splenomegaly heme-occult neg sbp goal 100s, will restart home coreg ammonia level ordered rifaximin prn pruritis GI consult appreciated Code(s): K70.30 - ALCOHOLIC CIRRHOSIS OF LIVER WITHOUT ASCITES Qualifiers: Ascites presence: with ascites Qualified Code(s): K70.31 - Alcoholic cirrhosis of liver with ascites (2) Pancytopenia Assessment/Plan: as above transfuse prbcs/plts as needed vitamin k monitor cbc PPI drip octreo drip x 3 days per gi hematology/gi following Code(s): D61.818 - OTHER PANCYTOPENIA (3) Alcohol dependence with uncomplicated withdrawal Assessment/Plan: Blood Alcohol level- 322, CIWA-2 continue librium detox replete electrolytes as needed thiamine/folic acid nutrition consult NPO until speech eval when clinically stable [facility]-detox team following Dispo: possibly outpt rehab when clinically stable Code(s): F10.230 - ALCOHOL DEPENDENCE WITH WITHDRAWAL, UNCOMPLICATED (4) Hypokalemia Assessment/Plan: as above replete as needed monitor bmp Code(s): E87.6 - HYPOKALEMIA (5) Hypomagnesemia Assessment/Plan: replete Code(s): E83.42 - HYPOMAGNESEMIA (6) Hypophosphatemia Assessment/Plan: secondary to chronic alcoholism replete as needed Code(s): E83.39 - OTHER DISORDERS OF PHOSPHORUS METABOLISM (7) Splenomegaly Assessment/Plan: secondary to portal htn will monitor Code(s): R16.1 - SPLENOMEGALY, NOT ELSEWHERE CLASSIFIED (8) Cocaine abuse Assessment/Plan: urine neg detox plan as above Code(s): F14.10 - COCAINE ABUSE, UNCOMPLICATED (9) Hypothyroid Assessment/Plan: stable tsh 0.99 continue levothyroixine Code(s): E03.9 - HYPOTHYROIDISM, UNSPECIFIED Qualifiers: (10) Hyperbilirubinemia Assessment/Plan: secondary to advanced liver disease hepatic panel ordered Code(s): E80.6 - OTHER DISORDERS OF BILIRUBIN METABOLISM (11) Falling episodes Assessment/Plan: hx of falls secondary to alcohol intoxication head CT pending abd/pelvis ct chronic T11/L1 compression fractures fall risk precautions Code(s): R29.6 - REPEATED FALLS Assessment/Plan I agree with ICU attending's plan for this pt Continue ICU level of care
--- NOTE | 2017-11-12 10:20 | CONSULT ---
Consult Detox [facility] Reason for Current Admission/Consult: substance use Referred by:: elvia suero - History History of Present Illness: 56 yo f wiht h/o alcohol use diosrder,, severe, admitteed with intoxication and pancytopenia to MICU for blood trasnfusion, started on libirum detox which she is tolerating well. work reveals worsening hepatic cirrhosis and hepatosplenomegaly. patst h/o cocaine abuse but uto neg. hypokalemia, hypomagnesemia and hypophosphatemia noted. martine denies history of seizurs, DTS or SI at this time, was last detoxed at [facility]. would liek to go to [facility] rehab when better becasue she says outpatient does ot work, started drinking heavily at age 44 strong fhx,m denies all other illicit drug use. does not smoke. - Alcohol/Substance Use Hx Alcohol Use: Yes (1-2 pints whiskey daily) Hx Substance Use: Yes (cocaine in past, none at present) Hx Substance Use Treatment: Yes ([facility] in past, now outpatient) - Current Drug/Alcohol Use Alcohol Route: Oral Frequency: Daily Amount used: 1-2 pints whicskey daily Age of first use: 44 Date of Last Use: 11/10/17 - Past Medical History Gastrointestinal: Yes: GERD, Pancreatitis (recurrent) Hepatobiliary: Yes: Cirrhosis (possible) ...LMP: 08/01/12 Psych: Yes: Addictions Endocrine: Yes: Hypothyroidism - Past Surgical History Past Surgical History: Yes: - Significant Medical Findings: 56 yof with alcohol withdrawal on librium detox and comfortable in bed. a and ox3, no comp;laints CIWA Score - CIWA Score Nausea/Vomitin-No Nausea/No Vomiting Muscle Tremors: 1-None Visible, but [place] Anxiety: 1-Mildly Anxious Agitation: 0-Normal Activity Paroxysmal Sweats: No Perspiration Orientation: 0-Oriented Tacttile Disturbances: 0-None Auditory Disturbances: 0-None Visual Disturbances: 0-None Headache: 0-None Present CIWA-Ar Total Score: 2 Assessment Plan - Diagnosis (1) Advanced cirrhosis of liver Status: Acute (2) Hypokalemia Status: Acute (3) Hypomagnesemia Status: Acute (4) Hypophosphatemia Status: Acute (5) Intoxication Status: Acute (6) Pancytopenia Status: Acute (7) Splenomegaly Status: Acute (8) Thrombocytopenia concurrent with and due to alcoholism Status: Acute (9) Cocaine abuse Status: Acute (10) Drug-induced mood disorder Status: Acute (11) Falling episodes Status: Acute (12) Alcohol dependence with uncomplicated withdrawal Status: Chronic (13) GERD (gastroesophageal reflux disease) Status: Chronic Qualifiers: (14) Hypothyroid Status: Chronic Qualifiers: - Plan Plan: chart , imaging, labs reviewed. pateint examined and history taken. discussed care with medical team. REcommend: 1. libirum detox for dick as ordered. 2. fluids, vitamins, nutritional and dietary eval 3. supplement k, mg and phos 4. pancytopenia and cirrhosis as per primary team. 5. patient is not medically stable to participate in a drug rehab program at this time but requesting to go to [facility] when medicallys table. woudl discharge for intensive outpatient treatment if not medically stable when she is discharged. Felix Ratliff MD [phone] - Medication Detox Regimen/Protocol: Librium
[2017-11-12] MEDS: MUPIROCIN 2% TOPICAL OINTMENT FOR DECOLONIZATION NS SCH ×2 (10:51→22:10)
[2017-11-12 11:19] LABS: ANISOCYTOSIS 1+; PLATELET ESTIMATE DECREASED
--- NOTE | 2017-11-12 11:43 | EKG ---
Test Reason : Blood Pressure : / mmHG Vent. Rate : 102 BPM Atrial Rate : 102 BPM P-R Int : 112 ms QRS Dur : 098 ms QT Int : 366 ms P-R-T Axes : 030 057 062 degrees QTc Int : 477 ms SINUS TACHYCARDIA OTHERWISE NORMAL ECG WHEN COMPARED WITH ECG OF 14-MAY-2016 13:25, NO SIGNIFICANT CHANGE WAS FOUND Confirmed by LES GAYTAN MD ([id number]) on 11/12/2017 11:42:50 AM Referred By: Confirmed By:LES GAYTAN MD
--- NOTE | 2017-11-12 11:53 | PN ---
Teaching Attending Note Name of Resident: Brandyn Willis ATTENDING PHYSICIAN STATEMENT I saw and evaluated the patient. I reviewed the resident's note and discussed the case with the resident. I agree with the resident's findings and plan as documented. SUBJECTIVE: Pt seen and examined in the ICU. Briefly, 56yo female with h/o alcohol abuse with liver cirrhosis, thrombocytopenia, cocaine abuse, who was admitted with generalized weakness and alcohol intoxication. Found to be severely anemic, thrombocytopenic and coagulopathy. Admitted to the ICU for further monitoring. Feels weak. No obvious bleeding. Receiving PRBC and platelets. Denies shortness of breath or chest pain. OBJECTIVE: Last Vital Signs Temp Pulse Resp BP Pulse Ox 98.8 F 101 H 18 139/70 99 11/12/17 10:00 11/12/17 10:00 11/12/17 10:00 11/12/17 10:00 11/12/17 02:16 Intake & Output 11/09/17 11/10/17 11/11/17 11/12/17 23:59 23:59 23:59 23:59 Intake Total 400 Balance 400 Weight 63.503 kg 75.75 kg Gen: awake, restless Heart: tachycardic, regular Lung: decreased breath sounds at the bases Abd: soft, nontender Ext: no edema CBC, BMP 11/12/17 06:05 11/12/17 06:05 Active Medications Chlordiazepoxide HCl (Librium -) 50 mg PO [id number] [place] Stop: 11/12/17 23:01 Last Admin: 11/12/17 10:44 Dose: 50 mg Chlordiazepoxide HCl (Librium -) 25 mg PO [id number] [place] Stop: 11/13/17 23:01 Chlordiazepoxide HCl (Librium -) 15 mg PO [id number] [place] Stop: 11/14/17 23:01 Chlordiazepoxide HCl (Librium -) 25 mg PO Q4H PRN PRN Reason: WITHDRAWAL(CONT SUBST) Stop: 11/15/17 02:23 Chlorhexidine Gluconate (Hibiclens For Decolonization -) 1 applic TP HS [place] Octreotide Acetate 1,200 mcg/ (Dextrose) 500 mls @ 20.83 mls/hr IVPB ASDIR [place] PRN Reason: 50 MCG/HR Last Admin: 11/12/17 07:45 Dose: 20.83 mls/hr Potassium Chloride (Potassium Chloride 10 Meq Premix Ivpb -) 10 meq in 100 mls @ 100 mls/hr IVPB Q60M [facility] Stop: 11/12/17 13:14 Last Admin: 11/12/17 09:15 Dose: 100 mls/hr Pantoprazole Sodium 160 mg/ (Sodium Chloride) 290 mls @ 14.5 mls/hr IVPB Q20H [facility] Last Admin: 11/12/17 09:00 Dose: 14.5 mls/hr Magnesium Oxide (Mag-Ox -) 400 mg PO BID [facility] Mupirocin (Bactroban Ointment (For Decolonization) -) 1 applic NS BID [facility] Stop: 11/17/17 09:59 Last Admin: 11/12/17 10:51 Dose: 1 appful Phytonadione (Mephyton -) 5 mg PO ONCE ONE Stop: 11/12/17 12:01 Potassium Chloride (K-Dur -) 20 meq PO BID [facility] Multivit/Folic Acid/Iron ( Vitamins (Sjr) -) 1 tab PO DAILY [facility] Thiamine HCl (Vitamin B1 -) 100 mg PO [facility] ASSESSMENT AND PLAN: Alcohol Intoxication/Abuse Pancytopenia/Anemia/Severe Thrombocytopenia Liver Cirrhosis Splenomegaly Coagulopathy - transfuse PRBC, platelets - monitor CBC, coags - replete lytes, vitamins1 - vitamin K - IVF - protonix, octreotide gtt for now - librium protocol - may need endoscopy when thrombocytopenia/coagulopathy improved - mechanical DVT prophylaxis - continue ICU monitoring critical care time spent in reviewing chart, evaluating patient and formulating plan 35 min
[2017-11-12] MEDS ORDERED: PHYTONADIONE 5 MG TABLET PO ONE (12:00)
--- NOTE | 2017-11-12 12:58 | CON.GI ---
Consult Consult Specialty:: GI Reason for Consultation:: anemia, liver cirrhosis - History of Present Illness History of Present Illness: chart reviewed. Events noted. Per initial intake: this is a 56 y/o woman with a PMHx of Chronic Alcoholism, Chronic Thrombocytopenia, Liver Cirrhosis, Cocaine Abuse, GERd, Thyroid Disease , Pancreatitis. Who presents to the ED with weakness, fatigue, alcohol intoxication. Patient reports drinking 1 pint of whiskey daily. She reports falling recently, denies LOC or head trauma. On exam, mild distress, not in pain. Tremors. Multiple bruises. Awake, alert, oriented. Admits to drinking daily. Denies melena, hematochezia, hematemesis, dysphagia, odynophagia, jaundice, low-grade fever, chills, fluctuating abdominal girth. Head EGD and colonoscopy 2-3 years ago. Denies history of esophageal, gastric varices. Admission blood work reveals severe thrombocytopenia, mild hypocoagulable state, cholestasis with mild hepatitis. Low albumin. - Past Medical History Gastrointestinal: Yes: GERD, Pancreatitis (recurrent) Hepatobiliary: Yes: Cirrhosis (possible) ...LMP: 08/01/12 Psych: Yes: Addictions Endocrine: Yes: Hypothyroidism - Past Surgical History Past Surgical History: Yes: - Alcohol/Substance Use Hx Alcohol Use: Yes (1-2 pints whiskey daily) Number of Drinks Daily: 2 (pints) History of Substance Use: reports: Cocaine (4 weeks ago) - Smoking History Smoking history: Never smoked Have you smoked in the past 12 months: No Aproximately how many cigarettes per day: 0 - Social History ADL: Independent History of Recent Travel: No Home Medications - Allergies Allergies/Adverse Reactions: Allergies Allergy/AdvReac Type Severity Reaction Status Date / Time lamotrigine [From Lamictal] Allergy Verified 11/11/17 20:04 Family Disease History - Family Disease History Family Disease History: Diabetes: Father (etoh), Heart Disease: Mother (anxiety, triple bypass, aortic repair), Other: Father Physical Exam-GI Vital Signs: Vital Signs Temperature 98.8 F 11/12/17 10:00 Pulse Rate 86 11/12/17 12:00 Respiratory Rate 18 11/12/17 12:00 Blood Pressure 140/68 11/12/17 12:00 O2 Sat by Pulse Oximetry (%) 99 11/12/17 02:16 Labs: CBC, BMP 11/12/17 06:05 11/12/17 06:05 INR, PTT INR 1.53 (0.82-1.09) H 11/12/17 06:05 Fibrinogen 249.0 mg/dL (238-498) 11/12/17 06:30 Imaging - Results Cat Scan: Report Reviewed ( stigmata of liver cirrhosis. Cholelithiasis without evidence of cholecystitis.) Problem List - Problems (1) Acute alcohol intoxication Code(s): F10.929 - ALCOHOL USE, UNSPECIFIED WITH INTOXICATION, UNSPECIFIED (2) Thrombocytopenia Code(s): D69.6 - THROMBOCYTOPENIA, UNSPECIFIED (3) Advanced cirrhosis of liver Code(s): K74.60 - UNSPECIFIED CIRRHOSIS OF LIVER (4) Alcoholic cirrhosis of liver Code(s): K70.30 - ALCOHOLIC CIRRHOSIS OF LIVER WITHOUT ASCITES Qualifiers: Ascites presence: with ascites Qualified Code(s): K70.31 - Alcoholic cirrhosis of liver with ascites Assessment/Plan This is a 56-year-old female alcoholic with Liver cirrhosis, positive blood alcohol levels on admission, severe thrombocytopenia, multiple bruises and hematomas admitted with significant anemia without stigmata of recent, or ongoing GI blood loss. Hemoccult negative. No recent history to suggest haile gastrointestinal blood loss. Alcohol withdrawal management Substance abuse counseling. Avoid excessive IV fluids, Keep systolic blood pressure around 100. Agree with PPI and octreotide. Continued octreotide for the next 3 days. Will need upper endoscopy to asses esophageal, gastric varices and portal hypertensive gastropathy. Viral, autoimmune serologies. Alpha-fetoprotein Will follow closely
[2017-11-12] MEDS ORDERED: PROMETHAZINE HCL 25 MG/1 ML VIAL IVPB PRN (15:05)
[2017-11-12] MEDS ORDERED: hydrOXYzine HCL 25 MG TABLET (FP) PO PRN (16:01)
[2017-11-12] MEDS: chlordiazePOXIDE HCL 25 MG CAPSULE PO PRN ×2 (18:24→22:11)
--- NOTE | 2017-11-12 18:41 | PN ---
Progress Note (short form) - Note Progress Note: Patient complains of a dull constant midsternal chest pain radiating to the right chest associated with pain on inspiration. Patient states it started around 10 minutes ago and has been constant since then. She reports she feels scared and anxious because of the condition she is in, which is likely contributing to the chest pain and pressure. VITALS: BP: 144/67 HR: 89 RR: 17 02: 96% -Repeat labs pending -EKG ordered -Cardiac profile ordered -Will continue cardiac monitoring.
[2017-11-12 18:45] LABS: HEMATOCRIT 25.2 % (32.4-45.2); HEMOGLOBIN 8.7 GM/dL (10.7-15.3); MCH 33.3 pg (25.7-33.7); MCHC 34.6 g/dl (32.0-36.0); MEAN PLT VOLUME 8.2 fl (7.5-11.1); RBC 2.63 M/mm3 (3.60-5.2); RDW 18.3 % (11.6-15.6); WHITE BLOOD COUNT 4.4 K/mm3 (4.0-10.0)
[2017-11-12 18:52] LABS: PLATELET COUNT 19 K/MM3 (134-434)
[2017-11-12 18:58] LABS: INR 1.4 (0.82-1.09); PROTHROMBIN TIME (PATIENT) 15.8 SEC (9.98-11.88)
[2017-11-12 19:01] LABS: ACTIVATED PTT 29.5 SECONDS (26.9-34.4)
[2017-11-12 19:40] LABS: MAGNESIUM 2.5 mg/dL (1.8-2.4); POTASSIUM 3.5 mmol/L (3.5-5.1)
[2017-11-12] MEDS ORDERED: THIAMINE HCL 100 MG TABLET (FP) PO SCH (22:00)
[2017-11-12] MEDS ORDERED: CHLORHEXIDINE GLUCONATE 4% CLEANSER FOR DECOLONIZATION TP SCH (22:00)
[2017-11-12] MEDS: MAGNESIUM OXIDE 400 MG TABLET (FP) PO SCH (22:11)
[2017-11-12] MEDS: CARVEDILOL 3.125 MG TABLET (FP) PO SCH (22:11)
[2017-11-12] MEDS: POTASSIUM CHLORIDE TABS 20 MEQ TABLET.ER (FP) PO SCH (22:11)
[2017-11-12] MEDS ORDERED: METOCLOPRAMIDE HCL INJECTION 10 MG/2 ML VIAL IVPUSH PRN (22:36)
[2017-11-13] MEDS ORDERED: LORazepam 2 MG/ML SDV VIAL ONE (00:46)
[2017-11-13] MEDS: chlordiazePOXIDE HCL 25 MG CAPSULE PO SCH ×3 (05:49→17:22)
[2017-11-13] MEDS: PANTOPRAZOLE SODIUM 160 MG in SODIUM CHLORIDE 290 ML IVPB SCH ×2 (05:49→08:50)
[2017-11-13] MEDS: chlordiazePOXIDE HCL 25 MG CAPSULE PO PRN ×2 (06:43→10:30)
[2017-11-13 06:50] LABS: BASO % 0.7 % (0-2.0); EOS % 1.5 % (0-4.5); HEMATOCRIT 25.3 % (32.4-45.2); HEMOGLOBIN 8.9 GM/dL (10.7-15.3); LYMPH % 26.7 % (8-40); MCH 33.5 pg (25.7-33.7); MCHC 35.1 g/dl (32.0-36.0); MEAN CELL VOLUME 95.3 fl (80-96); MEAN PLT VOLUME 8.7 fl (7.5-11.1); MONO % 15.6 % (3.8-10.2); NEUT % 55.5 % (42.8-82.8); RBC 2.65 M/mm3 (3.60-5.2)
[2017-11-13 06:54] LABS: INR 1.44 (0.82-1.09); PLATELET COUNT 17 K/MM3 (134-434); PROTHROMBIN TIME (PATIENT) 16.3 SEC (9.98-11.88)
[2017-11-13] MEDS ORDERED: LEVOTHYROXINE NA 100 MCG TABLET (FP) PO SCH (07:00)
[2017-11-13 07:44] LABS: ALBUMIN 2.9 g/dl (3.4-5.0); CHLORIDE 105 mmol/L (98-107); POTASSIUM 3.9 mmol/L (3.5-5.1); SODIUM 139 mmol/L (136-145)
[2017-11-13] MEDS ORDERED: PT OWN MED DRAWER 7, Y5N ONE ×2 (07:47→10:21)
[2017-11-13 07:49] LABS: BILIRUBIN,DIRECT 3.2 mg/dL (0.0-0.2); BILIRUBIN,TOTAL 5.2 mg/dL (0.2-1.0); TOT PROT 6.9 g/dl (6.4-8.2)
[2017-11-13 07:50] LABS: ALBUMIN 2.8 g/dl (3.4-5.0); ALK PHOS 177 U/L (45-117); ANION GAP 11 (8-16); BILIRUBIN,TOTAL 5.3 mg/dL (0.2-1.0); BLOOD UREA NITROGEN 14 mg/dL (7-18); CALCIUM 7.9 mg/dL (8.5-10.1); CO2 23 mmol/L (21-32); CREATININE 1.2 mg/dL (0.55-1.02); GLUCOSE,RANDOM 131 mg/dL (74-106); MAGNESIUM 2.3 mg/dL (1.8-2.4); SGOT/AST 79 U/L (15-37); SGPT/ALT 20 U/L (12-78); TOT PROT 6.9 g/dl (6.4-8.2)
[2017-11-13 08:08] LABS: SERUM IRON SATURATION 12 % (15-55); TOTAL IRON BINDING CAPACITY 342 ug/dL (250-450); UIBC 301 ug/dL (131-425)
[2017-11-13] MEDS: OCTREOTIDE ACETATE 1,200 MCG in DEXTROSE 5%-WATER - 488 ML IVPB SCH ×2 (08:51→20:52)
[2017-11-13] MEDS ORDERED: PHYTONADIONE 5 MG TABLET PO ONE (09:00)
--- NOTE | 2017-11-13 09:01 | PN ---
Physical Exam: SUBJECTIVE: Patient seen and examined Overnight, pt complained of chest pressure. EKG and trops ordered. Pt also found to be agitated and confused overnight. This am, pt states that she feels less fatigued compared to yesterday. She denies headache, chest pain, n/v/d/c, abdominal pain, hematemesis, hematochezia/melena, and dysuria. OBJECTIVE: Vital Signs Period Temp Pulse Resp BP Sys/Aguero Pulse Ox Last 24 Hr 98.1 F-99.2 F 64-101 14-20 124-156/67-85 96-99 GENERAL: middle aged female, lying in bed, AAOx3, in NAD HEENT: scleral icterus LUNGS: CTAB, no wheezing or rhonchi HEART: systolic murmur, tachycardic ABDOMEN: large ecchymoses over abdomen and flank, soft, NT, ND MUSCULOSKELETAL: trace LE edema NEUROLOGICAL: Cranial nerves II-XII intact. Normal speech. asterixis present. + [id number] test Laboratory Results - last 24 hr 11/11/17 11/12/17 11/12/17 23:43 03:00 06:05 WBC RBC Hgb Hct MCV MCH MCHC RDW Plt Count MPV Neutrophils % Neutrophils % (Manual) 63.9 Band Neutrophils % 15.5 Lymphocytes % Lymphocytes % (Manual) 15.5 Monocytes % Monocytes % (Manual) 3 L Eosinophils % Eosinophils % (Manual) 0.0 Basophils % Basophils % (Manual) 2.0 Myelocytes % (Man) 0 Promyelocytes % (Man) 0 Blast Cells % (Manual) 0 Nucleated RBC % 1 H Metamyelocytes 0 Platelet Estimate Decreased Polychromasia 1+ Poikilocytosis 0 Anisocytosis 1+ Microcytosis 1+ PT with INR INR PTT (Actin FS) Fibrinogen Sodium Potassium Chloride Carbon Dioxide Anion Gap BUN Creatinine Creat Clearance w eGFR Random Glucose Calcium Phosphorus Magnesium Iron 41 TIBC 342 Iron Saturation 12 L Total Bilirubin Direct Bilirubin AST ALT Alkaline Phosphatase Ammonia Creatine Kinase Creatine Kinase Index CK-MB (CK-2) Troponin I Total Protein Albumin Stool Occult Blood Blood Type O NEGATIVE Antibody Screen Negative Crossmatch See Detail 11/12/17 11/12/17 11/12/17 06:30 09:23 17:15 WBC 4.4 D RBC 2.63 L D Hgb 8.7 L D Hct 25.2 L D MCV 96.0 MCH 33.3 MCHC 34.6 RDW 18.3 H D Plt Count 19 L* D MPV 8.2 Neutrophils % Neutrophils % (Manual) Band Neutrophils % Lymphocytes % Lymphocytes % (Manual) Monocytes % Monocytes % (Manual) Eosinophils % Eosinophils % (Manual) Basophils % Basophils % (Manual) Myelocytes % (Man) Promyelocytes % (Man) Blast Cells % (Manual) Nucleated RBC % Metamyelocytes Platelet Estimate Polychromasia Poikilocytosis Anisocytosis Microcytosis PT with INR INR PTT (Actin FS) Fibrinogen 249.0 Sodium Potassium Chloride Carbon Dioxide Anion Gap BUN Creatinine Creat Clearance w eGFR Random Glucose Calcium Phosphorus Magnesium Iron TIBC Iron Saturation Total Bilirubin Direct Bilirubin AST ALT Alkaline Phosphatase Ammonia Creatine Kinase Creatine Kinase Index CK-MB (CK-2) Troponin I Total Protein Albumin Stool Occult Blood Negative Blood Type Antibody Screen Crossmatch 11/12/17 11/12/17 11/12/17 17:15 17:15 17:15 WBC RBC Hgb Hct MCV MCH MCHC RDW Plt Count MPV Neutrophils % Neutrophils % (Manual) Band Neutrophils % Lymphocytes % Lymphocytes % (Manual) Monocytes % Monocytes % (Manual) Eosinophils % Eosinophils % (Manual) Basophils % Basophils % (Manual) Myelocytes % (Man) Promyelocytes % (Man) Blast Cells % (Manual) Nucleated RBC % Metamyelocytes Platelet Estimate Polychromasia Poikilocytosis Anisocytosis Microcytosis PT with INR 15.80 H INR 1.40 H PTT (Actin FS) 29.5 Fibrinogen 267.0 Sodium Potassium 3.5 Chloride Carbon Dioxide Anion Gap BUN Creatinine Creat Clearance w eGFR Random Glucose Calcium Phosphorus Magnesium 2.5 H Iron TIBC Iron Saturation Total Bilirubin Direct Bilirubin AST ALT Alkaline Phosphatase Ammonia Creatine Kinase Creatine Kinase Index CK-MB (CK-2) Troponin I Total Protein Albumin Stool Occult Blood Blood Type Antibody Screen Crossmatch 11/12/17 11/12/17 11/13/17 18:00 20:45 05:32 WBC RBC Hgb Hct MCV MCH MCHC RDW Plt Count MPV Neutrophils % Neutrophils % (Manual) Band Neutrophils % Lymphocytes % Lymphocytes % (Manual) Monocytes % Monocytes % (Manual) Eosinophils % Eosinophils % (Manual) Basophils % Basophils % (Manual) Myelocytes % (Man) Promyelocytes % (Man) Blast Cells % (Manual) Nucleated RBC % Metamyelocytes Platelet Estimate Polychromasia Poikilocytosis Anisocytosis Microcytosis PT with INR 16.30 H INR 1.44 H PTT (Actin FS) Fibrinogen Sodium Potassium Chloride Carbon Dioxide Anion Gap BUN Creatinine Creat Clearance w eGFR Random Glucose Calcium Phosphorus Magnesium Iron TIBC Iron Saturation Total Bilirubin Direct Bilirubin AST ALT Alkaline Phosphatase Ammonia Creatine Kinase 313 H Creatine Kinase Index 0.7 CK-MB (CK-2) 2.349 Troponin I 0.08 H 0.08 H Total Protein Albumin Stool Occult Blood Blood Type Antibody Screen Crossmatch 11/13/17 11/13/17 11/13/17 05:32 05:32 05:32 WBC 4.0 RBC 2.65 L Hgb 8.9 L Hct 25.3 L MCV 95.3 MCH 33.5 MCHC 35.1 RDW 19.0 H Plt Count 17 L* MPV 8.7 Neutrophils % 55.5 D Neutrophils % (Manual) Band Neutrophils % Lymphocytes % 26.7 D Lymphocytes % (Manual) Monocytes % 15.6 H Monocytes % (Manual) Eosinophils % 1.5 D Eosinophils % (Manual) Basophils % 0.7 Basophils % (Manual) Myelocytes % (Man) Promyelocytes % (Man) Blast Cells % (Manual) Nucleated RBC % Metamyelocytes Platelet Estimate Polychromasia Poikilocytosis Anisocytosis Microcytosis PT with INR INR PTT (Actin FS) Fibrinogen Sodium 139 Potassium 3.9 Chloride 105 Carbon Dioxide 23 Anion Gap 11 BUN 14 Creatinine 1.2 H Creat Clearance w eGFR 46.82 Random Glucose 131 H Calcium 7.9 L Phosphorus 2.0 L Magnesium 2.3 Iron TIBC Iron Saturation Total Bilirubin 5.3 H D Direct Bilirubin AST 79 H ALT 20 Alkaline Phosphatase 177 H Ammonia 107.29 H Creatine Kinase Creatine Kinase Index CK-MB (CK-2) Troponin I Total Protein 6.9 Albumin 2.8 L Stool Occult Blood Blood Type Antibody Screen Crossmatch 11/13/17 11/13/17 05:32 05:32 WBC RBC Hgb Hct MCV MCH MCHC RDW Plt Count MPV Neutrophils % Neutrophils % (Manual) Band Neutrophils % Lymphocytes % Lymphocytes % (Manual) Monocytes % Monocytes % (Manual) Eosinophils % Eosinophils % (Manual) Basophils % Basophils % (Manual) Myelocytes % (Man) Promyelocytes % (Man) Blast Cells % (Manual) Nucleated RBC % Metamyelocytes Platelet Estimate Polychromasia Poikilocytosis Anisocytosis Microcytosis PT with INR INR PTT (Actin FS) Fibrinogen Sodium Potassium Chloride Carbon Dioxide Anion Gap BUN Creatinine Creat Clearance w eGFR Random Glucose Calcium Phosphorus Magnesium Iron TIBC Iron Saturation Total Bilirubin 5.2 H Direct Bilirubin 3.2 H AST 80 H ALT 20 Alkaline Phosphatase 180 H Ammonia Creatine Kinase Creatine Kinase Index CK-MB (CK-2) Troponin I 0.06 H Total Protein 6.9 Albumin 2.9 L Stool Occult Blood Blood Type Antibody Screen Crossmatch Active Medications Generic Name Dose Route Start Last Admin Trade Name Freq PRN Reason Stop Dose Admin Carvedilol 3.125 mg 11/12/17 22:00 11/12/17 22:11 Coreg - PO 3.125 mg BID [place] Administration Chlordiazepoxide HCl 25 mg 11/13/17 05:00 11/13/17 05:49 Librium - PO 11/13/17 23:01 25 mg [id number] [place] Administration Chlordiazepoxide HCl 15 mg 11/14/17 05:00 Librium - PO 11/14/17 23:01 [id number] [place] Chlordiazepoxide HCl 25 mg 11/12/17 02:24 11/13/17 06:43 Librium - PO 11/15/17 02:23 25 mg Q4H PRN Administration WITHDRAWAL(CONT SUBST) Chlorhexidine Gluconate 1 applic 11/12/17 22:00 11/12/17 22:31 Hibiclens For Decolonization - TP 1 applic HS [place] Administration Folic Acid 1 mg 11/13/17 10:00 Folic Acid - PO DAILY [place] Hydroxyzine HCl 25 mg 11/12/17 16:01 Atarax - PO TID PRN FOR ITCHING Octreotide Acetate 1,200 mcg/ 500 mls @ 20.83 mls/hr 11/12/17 07:45 11/13/17 08:51 Dextrose IVPB Not Given ASDIR [place] 50 MCG/HR Pantoprazole Sodium 160 mg/ 290 mls @ 14.5 mls/hr 11/12/17 09:00 11/13/17 08: 50 Sodium Chloride IVPB 14.5 mls/hr Q20H [place] Administration Levothyroxine Sodium 100 mcg 11/13/17 07:00 11/13/17 06:12 Synthroid - PO 100 mcg DAILY@0700 [place] Administration Magnesium Oxide 400 mg 11/12/17 22:00 04/18/18 22:11 Mag-Ox - PO 400 mg BID [place] Administration Metoclopramide HCl 10 mg 11/12/17 22:36 11/12/17 22:41 Reglan Injection - IVPUSH 10 mg Q8H PRN Administration NAUSEA AND/OR VOMITING Mupirocin 1 applic 11/12/17 10:00 11/12/17 22:10 Bactroban Ointment (For Decolonization) - NS 11/17/17 09:59 1 applic BID [place] Administration Potassium Chloride 20 meq 11/12/17 22:00 11/12/17 22:11 K-Dur - PO 20 meq BID [place] Administration Multivit/Folic Acid/Iron 1 tab 11/13/17 10:00 Vitamins (Sjr) - PO DAILY [place] Thiamine HCl 100 mg 11/12/17 22:00 11/12/17 22:11 Vitamin B1 - PO 100 mg HS [place] Administration ASSESSMENT/PLAN: 56F w/ hx of liver cirrhosis, chronic alcoholism, chronic thrombocytopenia, GERD , pancreatitis, and thyroid disease who presented with weakness, fatigue, and alcohol intoxication, found to have thrombocytopenia and anemia. Neuro #asterixis- 2/2 component of alcohol withdrawal. Pt is AAOx3, speaking clearly. -continue librium protocol, folic acid, MV, and thiamine -hydroxyzine for pruritis/agitation -reglan PRN for n/v -continue to monitor symptoms CV -hemodynamically stable -continue home coreg Pulm -satting well on NC -continue to monitor GI #liver cirrhosis- likely 2/2 alcoholism -GI on board, recs appreciated -FOBT: negative -ammonia of 107 -continue thiamine, folic acid, and MV Renal #LILIA -creatinine of 1.2, up from 1.1 yesterday Heme #thrombocytopenia and anemia- likely 2/2 cirrhosis, less likely due to acute bleed -s/p 2 units of platelets and 2 units of PRBCs. Due to platelet level of 17 today, another unit of platelets given -trend Hgb and platelet levels -hematology on board, recs appreciated. f/u fibrinogen. If < 100, give cryo. Give vitamin K for elevated INR. -GI on board, recs appreciated. protonix gtt changed to po protonix 40mg BID. continue octreotide for 3 days total. f/u viral and autoimmune labs. will need endoscopy. FEN/ppx -po fluids -electrolytes wnl -sodium controlled, fluid restricted diet -no DVT ppx due to anemia and thrombocytopenia -protonix Dispo -stable for transfer to floors Case discussed with attending, Dr. Melendez. -Brandyn Willis MD PGY1 ICU Team Visit type - Emergency Visit Emergency Visit: Yes ED Registration Date: 11/12/17 Care time: The patient presented to the Emergency Department on the above date and was hospitalized for further evaluation of their emergent condition. - New Patient This patient is new to me today: No - Critical Care Critical Care patient: Yes Total Critical Care Time (in minutes): 36 Critical Care Statement: The care of this patient involved high complexity decision making to prevent further life threatening deterioration of the patient 's condition and/or to evaluate & treat vital organ system(s) failure or risk of failure.
[2017-11-13] MEDS ORDERED: PRENATAL VITAMINS W/ FOLIC ACID TABLET (FP) PO SCH (10:00)
[2017-11-13] MEDS ORDERED: FOLIC ACID 1 MG TABLET (FP) PO SCH (10:00)
[2017-11-13] MEDS: MUPIROCIN 2% TOPICAL OINTMENT FOR DECOLONIZATION NS SCH ×2 (10:15→21:11)
[2017-11-13] MEDS: MAGNESIUM OXIDE 400 MG TABLET (FP) PO SCH ×2 (10:16→21:21)
[2017-11-13] MEDS: CARVEDILOL 3.125 MG TABLET (FP) PO SCH (10:16)
[2017-11-13] MEDS: POTASSIUM CHLORIDE TABS 20 MEQ TABLET.ER (FP) PO SCH (10:16)
--- NOTE | 2017-11-13 10:21 | PN ---
[facility] Progress Note (SOAP) Subjective: patient comfortable in bed, appropriately sedated, no complaints Objective: 11/13/17 10:20 Vital Signs - 24 hr 11/12/17 11/12/17 11/12/17 12:00 14:00 16:00 Temperature 98.8 F 98.1 F Pulse Rate 86 89 95 H Respiratory 18 20 20 Rate Blood Pressure 140/68 152/85 140/67 O2 Sat by Pulse Oximetry (%) 11/12/17 11/12/17 11/12/17 18:00 18:53 20:00 Temperature 98.8 F 98.3 F Pulse Rate 95 H 91 H 77 Respiratory 18 20 18 Rate Blood Pressure 144/67 144/67 147/70 O2 Sat by Pulse Oximetry (%) 11/12/17 11/12/17 11/13/17 21:00 22:00 00:00 Temperature 98.6 F Pulse Rate 84 87 Respiratory 18 19 20 Rate Blood Pressure 156/78 140/80 O2 Sat by Pulse 99 99 Oximetry (%) 11/13/17 11/13/17 11/13/17 02:00 04:00 06:00 Temperature 99.2 F 99 F Pulse Rate 64 79 82 Respiratory 16 14 17 Rate Blood Pressure 142/72 146/77 132/79 O2 Sat by Pulse Oximetry (%) 11/13/17 11/13/17 11/13/17 07:58 08:00 10:00 Temperature 98.5 F 98.6 F Pulse Rate 69 89 Respiratory 18 21 Rate Blood Pressure 124/71 147/65 O2 Sat by Pulse 96 Oximetry (%) Laboratory Tests 11/11/17 11/11/17 11/11/17 20:26 20:26 20:26 WBC 3.4 L D RBC 2.27 L Hgb 7.7 L D Hct 22.9 L D MCV 100.9 H MCH 34.0 H MCHC 33.7 RDW 16.5 H Plt Count 17 L* D MPV 7.8 D Neutrophils % 74.2 D Neutrophils % (Manual) Band Neutrophils % Lymphocytes % 14.3 D Lymphocytes % (Manual) Monocytes % 11.0 H Monocytes % (Manual) Eosinophils % 0.2 D Eosinophils % (Manual) Basophils % 0.3 Basophils % (Manual) Myelocytes % (Man) Promyelocytes % (Man) Blast Cells % (Manual) Nucleated RBC % Metamyelocytes Platelet Estimate Polychromasia Poikilocytosis Anisocytosis Microcytosis PT with INR INR PTT (Actin FS) Fibrinogen Sodium 136 Potassium 3.5 Chloride 102 Carbon Dioxide 19 L Anion Gap 15 BUN 15 Creatinine 1.3 H Creat Clearance w eGFR 42.68 Random Glucose 204 H Calcium 7.7 L Phosphorus Magnesium Iron TIBC Iron Saturation Ferritin Total Bilirubin 3.6 H D Direct Bilirubin AST 94 H ALT 23 Alkaline Phosphatase 186 H Ammonia Creatine Kinase 152 Creatine Kinase Index 1.0 CK-MB (CK-2) 1.565 Troponin I < 0.02 B-Natriuretic Peptide 22.95 Total Protein 7.7 Albumin 3.2 L TSH Urine Color Urine Appearance Urine pH Ur Specific Coy Urine Protein Urine Glucose (UA) Urine Ketones Urine Blood Urine Nitrite Urine Bilirubin Urine Urobilinogen Ur Leukocyte Esterase Urine WBC (Auto) Urine RBC (Auto) Ur Epithelial Cells Urine Bacteria Stool Occult Blood Opiates Screen Methadone Screen Barbiturate Screen Phencyclidine Screen Ur Amphetamines Screen MDMA (Ecstasy) Screen Benzodiazepines Screen Cocaine Screen U Marijuana (THC) Screen Alcohol, Quantitative Blood Type Antibody Screen Crossmatch 11/11/17 11/11/17 11/11/17 22:56 22:56 22:56 WBC RBC Hgb Hct MCV MCH MCHC RDW Plt Count MPV Neutrophils % Neutrophils % (Manual) Band Neutrophils % Lymphocytes % Lymphocytes % (Manual) Monocytes % Monocytes % (Manual) Eosinophils % Eosinophils % (Manual) Basophils % Basophils % (Manual) Myelocytes % (Man) Promyelocytes % (Man) Blast Cells % (Manual) Nucleated RBC % Metamyelocytes Platelet Estimate Polychromasia Poikilocytosis Anisocytosis Microcytosis PT with INR 16.80 H INR 1.49 H PTT (Actin FS) Fibrinogen Sodium Potassium Chloride Carbon Dioxide Anion Gap BUN Creatinine Creat Clearance w eGFR Random Glucose Calcium Phosphorus Magnesium Iron TIBC Iron Saturation Ferritin Total Bilirubin Direct Bilirubin AST ALT Alkaline Phosphatase Ammonia Creatine Kinase Creatine Kinase Index CK-MB (CK-2) Troponin I B-Natriuretic Peptide Total Protein Albumin TSH Urine Color Urine Appearance Urine pH Ur Specific Coy Urine Protein Urine Glucose (UA) Urine Ketones Urine Blood Urine Nitrite Urine Bilirubin Urine Urobilinogen Ur Leukocyte Esterase Urine WBC (Auto) Urine RBC (Auto) Ur Epithelial Cells Urine Bacteria Stool Occult Blood Opiates Screen Methadone Screen Barbiturate Screen Phencyclidine Screen Ur Amphetamines Screen MDMA (Ecstasy) Screen Benzodiazepines Screen Cocaine Screen U Marijuana (THC) Screen Alcohol, Quantitative 322.36 H* Blood Type Cancelled Antibody Screen Cancelled Crossmatch 11/11/17 11/11/17 11/12/17 23:43 23:49 03:00 WBC RBC Hgb Hct MCV MCH MCHC RDW Plt Count MPV Neutrophils % Neutrophils % (Manual) Band Neutrophils % Lymphocytes % Lymphocytes % (Manual) Monocytes % Monocytes % (Manual) Eosinophils % Eosinophils % (Manual) Basophils % Basophils % (Manual) Myelocytes % (Man) Promyelocytes % (Man) Blast Cells % (Manual) Nucleated RBC % Metamyelocytes Platelet Estimate Polychromasia Poikilocytosis Anisocytosis Microcytosis PT with INR INR PTT (Actin FS) Fibrinogen Sodium Potassium Chloride Carbon Dioxide Anion Gap BUN Creatinine Creat Clearance w eGFR Random Glucose Calcium Phosphorus Magnesium Iron 41 TIBC 342 Iron Saturation 12 L Ferritin Total Bilirubin Direct Bilirubin AST ALT Alkaline Phosphatase Ammonia Creatine Kinase Creatine Kinase Index CK-MB (CK-2) Troponin I B-Natriuretic Peptide Total Protein Albumin TSH Urine Color Yellow Urine Appearance Clear Urine pH 7.0 Ur Specific Coy 1.004 Urine Protein Negative Urine Glucose (UA) Negative Urine Ketones Trace H Urine Blood 1+ H Urine Nitrite Negative Urine Bilirubin Negative Urine Urobilinogen 4.0 e.u/dl H Ur Leukocyte Esterase 1+ H Urine WBC (Auto) 12 Urine RBC (Auto) 1 Ur Epithelial Cells Rare Urine Bacteria Many Stool Occult Blood Opiates Screen Methadone Screen Barbiturate Screen Phencyclidine Screen Ur Amphetamines Screen MDMA (Ecstasy) Screen Benzodiazepines Screen Cocaine Screen U Marijuana (THC) Screen Alcohol, Quantitative Blood Type O NEGATIVE Antibody Screen Negative Crossmatch See Detail 11/12/17 11/12/17 11/12/17 03:00 06:05 06:05 WBC 2.0 L D RBC 1.80 L D Hgb 6.2 L* D Hct 17.9 L D MCV 99.3 H MCH 34.2 H MCHC 34.4 RDW 16.1 H Plt Count 13 L* D MPV 7.9 Neutrophils % No Result Required. Neutrophils % (Manual) 63.9 Band Neutrophils % 15.5 Lymphocytes % No Result Required. Lymphocytes % (Manual) 15.5 Monocytes % Monocytes % (Manual) 3 L Eosinophils % Eosinophils % (Manual) 0.0 Basophils % Basophils % (Manual) 2.0 Myelocytes % (Man) 0 Promyelocytes % (Man) 0 Blast Cells % (Manual) 0 Nucleated RBC % 1 H Metamyelocytes 0 Platelet Estimate Decreased Polychromasia 1+ Poikilocytosis 0 Anisocytosis 1+ Microcytosis 1+ PT with INR INR PTT (Actin FS) Fibrinogen Sodium 141 Potassium 3.1 L Chloride 107 Carbon Dioxide 23 Anion Gap 11 BUN 14 Creatinine 1.1 H Creat Clearance w eGFR Random Glucose 125 H Calcium 7.2 L Phosphorus 2.3 L Magnesium 1.4 L Iron TIBC Iron Saturation Ferritin 66.514 Total Bilirubin Direct Bilirubin AST ALT Alkaline Phosphatase Ammonia Creatine Kinase Creatine Kinase Index CK-MB (CK-2) Troponin I B-Natriuretic Peptide Total Protein Albumin TSH 0.99 Urine Color Urine Appearance Urine pH Ur Specific Coy Urine Protein Urine Glucose (UA) Urine Ketones Urine Blood Urine Nitrite Urine Bilirubin Urine Urobilinogen Ur Leukocyte Esterase Urine WBC (Auto) Urine RBC (Auto) Ur Epithelial Cells Urine Bacteria Stool Occult Blood Opiates Screen Methadone Screen Barbiturate Screen Phencyclidine Screen Ur Amphetamines Screen MDMA (Ecstasy) Screen Benzodiazepines Screen Cocaine Screen U Marijuana (THC) Screen Alcohol, Quantitative Blood Type Antibody Screen Crossmatch 11/12/17 11/12/17 11/12/17 06:05 06:30 08:30 WBC RBC Hgb Hct MCV MCH MCHC RDW Plt Count MPV Neutrophils % Neutrophils % (Manual) Band Neutrophils % Lymphocytes % Lymphocytes % (Manual) Monocytes % Monocytes % (Manual) Eosinophils % Eosinophils % (Manual) Basophils % Basophils % (Manual) Myelocytes % (Man) Promyelocytes % (Man) Blast Cells % (Manual) Nucleated RBC % Metamyelocytes Platelet Estimate Polychromasia Poikilocytosis Anisocytosis Microcytosis PT with INR 17.30 H INR 1.53 H PTT (Actin FS) Fibrinogen 249.0 Sodium Potassium Chloride Carbon Dioxide Anion Gap BUN Creatinine Creat Clearance w eGFR Random Glucose Calcium Phosphorus Magnesium Iron TIBC Iron Saturation Ferritin Total Bilirubin Direct Bilirubin AST ALT Alkaline Phosphatase Ammonia Creatine Kinase Creatine Kinase Index CK-MB (CK-2) Troponin I B-Natriuretic Peptide Total Protein Albumin TSH Urine Color Urine Appearance Urine pH Ur Specific Coy Urine Protein Urine Glucose (UA) Urine Ketones Urine Blood Urine Nitrite Urine Bilirubin Urine Urobilinogen Ur Leukocyte Esterase Urine WBC (Auto) Urine RBC (Auto) Ur Epithelial Cells Urine Bacteria Stool Occult Blood Opiates Screen Negative Methadone Screen Negative Barbiturate Screen Negative Phencyclidine Screen Negative Ur Amphetamines Screen Negative MDMA (Ecstasy) Screen Negative Benzodiazepines Screen Negative Cocaine Screen Negative U Marijuana (THC) Screen Negative Alcohol, Quantitative Blood Type Antibody Screen Crossmatch 11/12/17 11/12/17 11/12/17 09:23 17:15 17:15 WBC 4.4 D RBC 2.63 L D Hgb 8.7 L D Hct 25.2 L D MCV 96.0 MCH 33.3 MCHC 34.6 RDW 18.3 H D Plt Count 19 L* D MPV 8.2 Neutrophils % Neutrophils % (Manual) Band Neutrophils % Lymphocytes % Lymphocytes % (Manual) Monocytes % Monocytes % (Manual) Eosinophils % Eosinophils % (Manual) Basophils % Basophils % (Manual) Myelocytes % (Man) Promyelocytes % (Man) Blast Cells % (Manual) Nucleated RBC % Metamyelocytes Platelet Estimate Polychromasia Poikilocytosis Anisocytosis Microcytosis PT with INR INR PTT (Actin FS) Fibrinogen Sodium Potassium 3.5 Chloride Carbon Dioxide Anion Gap BUN Creatinine Creat Clearance w eGFR Random Glucose Calcium Phosphorus Magnesium 2.5 H Iron TIBC Iron Saturation Ferritin Total Bilirubin Direct Bilirubin AST ALT Alkaline Phosphatase Ammonia Creatine Kinase Creatine Kinase Index CK-MB (CK-2) Troponin I B-Natriuretic Peptide Total Protein Albumin TSH Urine Color Urine Appearance Urine pH Ur Specific Coy Urine Protein Urine Glucose (UA) Urine Ketones Urine Blood Urine Nitrite Urine Bilirubin Urine Urobilinogen Ur Leukocyte Esterase Urine WBC (Auto) Urine RBC (Auto) Ur Epithelial Cells Urine Bacteria Stool Occult Blood Negative Opiates Screen Methadone Screen Barbiturate Screen Phencyclidine Screen Ur Amphetamines Screen MDMA (Ecstasy) Screen Benzodiazepines Screen Cocaine Screen U Marijuana (THC) Screen Alcohol, Quantitative Blood Type Antibody Screen Crossmatch 11/12/17 11/12/17 11/12/17 17:15 17:15 18:00 WBC RBC Hgb Hct MCV MCH MCHC RDW Plt Count MPV Neutrophils % Neutrophils % (Manual) Band Neutrophils % Lymphocytes % Lymphocytes % (Manual) Monocytes % Monocytes % (Manual) Eosinophils % Eosinophils % (Manual) Basophils % Basophils % (Manual) Myelocytes % (Man) Promyelocytes % (Man) Blast Cells % (Manual) Nucleated RBC % Metamyelocytes Platelet Estimate Polychromasia Poikilocytosis Anisocytosis Microcytosis PT with INR 15.80 H INR 1.40 H PTT (Actin FS) 29.5 Fibrinogen 267.0 Sodium Potassium Chloride Carbon Dioxide Anion Gap BUN Creatinine Creat Clearance w eGFR Random Glucose Calcium Phosphorus Magnesium Iron TIBC Iron Saturation Ferritin Total Bilirubin Direct Bilirubin AST ALT Alkaline Phosphatase Ammonia Creatine Kinase 313 H Creatine Kinase Index 0.7 CK-MB (CK-2) 2.349 Troponin I 0.08 H B-Natriuretic Peptide Total Protein Albumin TSH Urine Color Urine Appearance Urine pH Ur Specific Coy Urine Protein Urine Glucose (UA) Urine Ketones Urine Blood Urine Nitrite Urine Bilirubin Urine Urobilinogen Ur Leukocyte Esterase Urine WBC (Auto) Urine RBC (Auto) Ur Epithelial Cells Urine Bacteria Stool Occult Blood Opiates Screen Methadone Screen Barbiturate Screen Phencyclidine Screen Ur Amphetamines Screen MDMA (Ecstasy) Screen Benzodiazepines Screen Cocaine Screen U Marijuana (THC) Screen Alcohol, Quantitative Blood Type Antibody Screen Crossmatch 11/12/17 11/13/17 11/13/17 20:45 05:32 05:32 WBC 4.0 RBC 2.65 L Hgb 8.9 L Hct 25.3 L MCV 95.3 MCH 33.5 MCHC 35.1 RDW 19.0 H Plt Count 17 L* MPV 8.7 Neutrophils % 55.5 D Neutrophils % (Manual) Band Neutrophils % Lymphocytes % 26.7 D Lymphocytes % (Manual) Monocytes % 15.6 H Monocytes % (Manual) Eosinophils % 1.5 D Eosinophils % (Manual) Basophils % 0.7 Basophils % (Manual) Myelocytes % (Man) Promyelocytes % (Man) Blast Cells % (Manual) Nucleated RBC % Metamyelocytes Platelet Estimate Polychromasia Poikilocytosis Anisocytosis Microcytosis PT with INR 16.30 H INR 1.44 H PTT (Actin FS) Fibrinogen Sodium Potassium Chloride Carbon Dioxide Anion Gap BUN Creatinine Creat Clearance w eGFR Random Glucose Calcium Phosphorus Magnesium Iron TIBC Iron Saturation Ferritin Total Bilirubin Direct Bilirubin AST ALT Alkaline Phosphatase Ammonia Creatine Kinase Creatine Kinase Index CK-MB (CK-2) Troponin I 0.08 H B-Natriuretic Peptide Total Protein Albumin TSH Urine Color Urine Appearance Urine pH Ur Specific Coy Urine Protein Urine Glucose (UA) Urine Ketones Urine Blood Urine Nitrite Urine Bilirubin Urine Urobilinogen Ur Leukocyte Esterase Urine WBC (Auto) Urine RBC (Auto) Ur Epithelial Cells Urine Bacteria Stool Occult Blood Opiates Screen Methadone Screen Barbiturate Screen Phencyclidine Screen Ur Amphetamines Screen MDMA (Ecstasy) Screen Benzodiazepines Screen Cocaine Screen U Marijuana (THC) Screen Alcohol, Quantitative Blood Type Antibody Screen Crossmatch 11/13/17 11/13/17 11/13/17 05:32 05:32 05:32 WBC RBC Hgb Hct MCV MCH MCHC RDW Plt Count MPV Neutrophils % Neutrophils % (Manual) Band Neutrophils % Lymphocytes % Lymphocytes % (Manual) Monocytes % Monocytes % (Manual) Eosinophils % Eosinophils % (Manual) Basophils % Basophils % (Manual) Myelocytes % (Man) Promyelocytes % (Man) Blast Cells % (Manual) Nucleated RBC % Metamyelocytes Platelet Estimate Polychromasia Poikilocytosis Anisocytosis Microcytosis PT with INR INR PTT (Actin FS) Fibrinogen Sodium 139 Potassium 3.9 Chloride 105 Carbon Dioxide 23 Anion Gap 11 BUN 14 Creatinine 1.2 H Creat Clearance w eGFR 46.82 Random Glucose 131 H Calcium 7.9 L Phosphorus 2.0 L Magnesium 2.3 Iron TIBC Iron Saturation Ferritin Total Bilirubin 5.3 H D 5.2 H Direct Bilirubin 3.2 H AST 79 H 80 H ALT 20 20 Alkaline Phosphatase 177 H 180 H Ammonia 107.29 H Creatine Kinase Creatine Kinase Index CK-MB (CK-2) Troponin I B-Natriuretic Peptide Total Protein 6.9 6.9 Albumin 2.8 L 2.9 L TSH Urine Color Urine Appearance Urine pH Ur Specific Coy Urine Protein Urine Glucose (UA) Urine Ketones Urine Blood Urine Nitrite Urine Bilirubin Urine Urobilinogen Ur Leukocyte Esterase Urine WBC (Auto) Urine RBC (Auto) Ur Epithelial Cells Urine Bacteria Stool Occult Blood Opiates Screen Methadone Screen Barbiturate Screen Phencyclidine Screen Ur Amphetamines Screen MDMA (Ecstasy) Screen Benzodiazepines Screen Cocaine Screen U Marijuana (THC) Screen Alcohol, Quantitative Blood Type Antibody Screen Crossmatch 11/13/17 05:32 WBC RBC Hgb Hct MCV MCH MCHC RDW Plt Count MPV Neutrophils % Neutrophils % (Manual) Band Neutrophils % Lymphocytes % Lymphocytes % (Manual) Monocytes % Monocytes % (Manual) Eosinophils % Eosinophils % (Manual) Basophils % Basophils % (Manual) Myelocytes % (Man) Promyelocytes % (Man) Blast Cells % (Manual) Nucleated RBC % Metamyelocytes Platelet Estimate Polychromasia Poikilocytosis Anisocytosis Microcytosis PT with INR INR PTT (Actin FS) Fibrinogen Sodium Potassium Chloride Carbon Dioxide Anion Gap BUN Creatinine Creat Clearance w eGFR Random Glucose Calcium Phosphorus Magnesium Iron TIBC Iron Saturation Ferritin Total Bilirubin Direct Bilirubin AST ALT Alkaline Phosphatase Ammonia Creatine Kinase Creatine Kinase Index CK-MB (CK-2) Troponin I 0.06 H B-Natriuretic Peptide Total Protein Albumin TSH Urine Color Urine Appearance Urine pH Ur Specific Coy Urine Protein Urine Glucose (UA) Urine Ketones Urine Blood Urine Nitrite Urine Bilirubin Urine Urobilinogen Ur Leukocyte Esterase Urine WBC (Auto) Urine RBC (Auto) Ur Epithelial Cells Urine Bacteria Stool Occult Blood Opiates Screen Methadone Screen Barbiturate Screen Phencyclidine Screen Ur Amphetamines Screen MDMA (Ecstasy) Screen Benzodiazepines Screen Cocaine Screen U Marijuana (THC) Screen Alcohol, Quantitative Blood Type Antibody Screen Crossmatch jaundice anemia, k corected, mg corredcted Assessment: 11/19/17 17:23 ALFREDO - cont detox, fluids, mv libirum as ordered
[2017-11-13] MEDS ORDERED: CEFTRIAXONE 1 GM in DEXTROSE 5%-WATER - 50 ML IVPB SCH (10:30)
--- NOTE | 2017-11-13 10:34 | PN ---
Progress Note, Physician Chief Complaint: Pt lying in bed in no acute distress. Reports diarrhea and "shaking" today. Denies any chest pain, n/v/d, unilateral weakness. - Current Medication List Current Medications: Active Medications Carvedilol (Coreg -) 3.125 mg PO BID [facility] Last Admin: 11/13/17 10:16 Dose: 3.125 mg Chlordiazepoxide HCl (Librium -) 25 mg PO [id number] Stop: 11/13/17 23:01 Last Admin: 11/13/17 10:18 Dose: 25 mg Chlordiazepoxide HCl (Librium -) 15 mg PO [id number] Stop: 11/14/17 23:01 Chlordiazepoxide HCl (Librium -) 25 mg PO Q4H PRN PRN Reason: WITHDRAWAL(CONT SUBST) Stop: 11/15/17 02:23 Last Admin: 11/13/17 10:30 Dose: 25 mg Chlorhexidine Gluconate (Hibiclens For Decolonization -) 1 applic TP HS [facility] Last Admin: 11/12/17 22:31 Dose: 1 applic Folic Acid (Folic Acid -) 1 mg PO DAILY [facility] Last Admin: 11/13/17 10:21 Dose: 1 mg Hydroxyzine HCl (Atarax -) 25 mg PO TID PRN PRN Reason: FOR ITCHING Octreotide Acetate 1,200 mcg/ (Dextrose) 500 mls @ 20.83 mls/hr IVPB [facility] PRN Reason: 50 MCG/HR Last Admin: 11/13/17 08:51 Dose: Not Given Pantoprazole Sodium 160 mg/ (Sodium Chloride) 290 mls @ 14.5 mls/hr IVPB Q20H [facility] Last Admin: 11/13/17 08:50 Dose: 14.5 mls/hr Ceftriaxone Sodium 1 gm/ (Dextrose) 50 mls @ 100 mls/hr IVPB DAILY [facility] Levothyroxine Sodium (Synthroid -) 100 mcg PO DAILY@0700 [facility] Last Admin: 11/13/17 06:12 Dose: 100 mcg Magnesium Oxide (Mag-Ox -) 400 mg PO BID [facility] Last Admin: 11/13/17 10:16 Dose: 400 mg Metoclopramide HCl (Reglan Injection -) 10 mg IVPUSH Q8H PRN PRN Reason: NAUSEA AND/OR VOMITING Last Admin: 11/12/17 22:41 Dose: 10 mg Mupirocin (Bactroban Ointment (For Decolonization) -) 1 applic NS BID [place] Stop: 11/17/17 09:59 Last Admin: 11/13/17 10:15 Dose: 1 applic Multivit/Folic Acid/Iron ( Vitamins (Sjr) -) 1 tab PO DAILY [place] Last Admin: 11/13/17 10:17 Dose: 1 tab Thiamine HCl (Vitamin B1 -) 100 mg PO HS [place] Last Admin: 11/12/17 22:11 Dose: 100 mg - Objective Vital Signs: Vital Signs Temperature 98.6 F 11/13/17 10:00 Pulse Rate 89 11/13/17 10:00 Respiratory Rate 21 11/13/17 10:00 Blood Pressure 147/65 11/13/17 10:00 O2 Sat by Pulse Oximetry (%) 96 11/13/17 07:58 Constitutional: Yes: Well Nourished, No Distress, Calm Eyes: Yes: Sclera Icterus Cardiovascular: Yes: Regular Rate and Rhythm Respiratory: Yes: WNL, Regular, CTA Bilaterally Gastrointestinal: Yes: Normal Bowel Sounds, Soft, Abdomen, Obese, Other ( echymosis lower abdominal). No: Distention, Tenderness Genitourinary: Yes: WNL Edema: No Neurological: Yes: WNL, Alert, Oriented Psychiatric: Yes: WNL, Alert, Oriented Labs: CBC, BMP 11/13/17 05:32 11/13/17 05:32 INR, PTT INR 1.44 (0.82-1.09) H 11/13/17 05:32 Fibrinogen 267.0 mg/dL (238-498) 11/12/17 17:15 Problem List - Problems (1) Alcoholic cirrhosis of liver Code(s): K70.30 - ALCOHOLIC CIRRHOSIS OF LIVER WITHOUT ASCITES Qualifiers: Ascites presence: with ascites Qualified Code(s): K70.31 - Alcoholic cirrhosis of liver with ascites (2) Pancytopenia Code(s): D61.818 - OTHER PANCYTOPENIA (3) Alcohol dependence with uncomplicated withdrawal Code(s): F10.230 - ALCOHOL DEPENDENCE WITH WITHDRAWAL, UNCOMPLICATED (4) Hypokalemia Code(s): E87.6 - HYPOKALEMIA (5) Hypomagnesemia Code(s): E83.42 - HYPOMAGNESEMIA (6) Hypophosphatemia Code(s): E83.39 - OTHER DISORDERS OF PHOSPHORUS METABOLISM (7) Splenomegaly Code(s): R16.1 - SPLENOMEGALY, NOT ELSEWHERE CLASSIFIED (8) Cocaine abuse Code(s): F14.10 - COCAINE ABUSE, UNCOMPLICATED (9) Hypothyroid Code(s): E03.9 - HYPOTHYROIDISM, UNSPECIFIED Qualifiers: (10) Hyperbilirubinemia Code(s): E80.6 - OTHER DISORDERS OF BILIRUBIN METABOLISM (11) Falling episodes Code(s): R29.6 - REPEATED FALLS (12) UTI (urinary tract infection) Code(s): N39.0 - URINARY TRACT INFECTION, SITE NOT SPECIFIED (13) Hepatic encephalopathy Code(s): K72.90 - HEPATIC FAILURE, UNSPECIFIED WITHOUT COMA Assessment/Plan (1) Alcoholic cirrhosis of liver Assessment/Plan: admitted w/ severe pancytopenia abd CT w/ cirrhosis, splenomegaly heme-occult neg sbp goal 100s, d/c coreg, will start nadolol ammonia level elevated, rifaximin prn pruritis GI following Code(s): K70.30 - ALCOHOLIC CIRRHOSIS OF LIVER WITHOUT ASCITES Qualifiers: Ascites presence: with ascites Qualified Code(s): K70.31 - Alcoholic cirrhosis of liver with ascites (2) Pancytopenia Assessment/Plan: as above, h/h improved today plt 17 transfuse plts vitamin k monitor cbc PPI drip octreo drip x 3 days per gi hematology/gi following Code(s): D61.818 - OTHER PANCYTOPENIA (3) Alcohol dependence with uncomplicated withdrawal Assessment/Plan: Blood Alcohol level- 322, CIWA-2 diarrhea, tremors today continue librium detox replete electrolytes as needed thiamine/folic acid nutrition consult NPO until speech eval when clinically stable [facility]-detox team following Dispo: possibly outpt rehab when clinically stable Code(s): F10.230 - ALCOHOL DEPENDENCE WITH WITHDRAWAL, UNCOMPLICATED (4) Hypokalemia Assessment/Plan: as above replete as needed monitor bmp Code(s): E87.6 - HYPOKALEMIA (5) Hypomagnesemia Assessment/Plan: replete Code(s): E83.42 - HYPOMAGNESEMIA (6) Hypophosphatemia Assessment/Plan: secondary to chronic alcoholism replete as needed Code(s): E83.39 - OTHER DISORDERS OF PHOSPHORUS METABOLISM (7) Splenomegaly Assessment/Plan: secondary to portal htn will monitor Code(s): R16.1 - SPLENOMEGALY, NOT ELSEWHERE CLASSIFIED (8) Cocaine abuse Assessment/Plan: urine neg detox plan as above Code(s): F14.10 - COCAINE ABUSE, UNCOMPLICATED (9) Hypothyroid Assessment/Plan: stable tsh 0.99 continue levothyroixine Code(s): E03.9 - HYPOTHYROIDISM, UNSPECIFIED Qualifiers: (10) Hyperbilirubinemia Assessment/Plan: secondary to advanced liver disease hepatic panel reviewed Code(s): E80.6 - OTHER DISORDERS OF BILIRUBIN METABOLISM (11) Falling episodes Assessment/Plan: hx of falls secondary to alcohol intoxication head CT neg abd/pelvis ct chronic T11/L1 compression fractures fall risk precautions Code(s): R29.6 - REPEATED FALLS (12) UTI (urinary tract infection) Assessment/Plan: UC grew gram neg org ceftriaxone day 1 Code(s): N39.0 - URINARY TRACT INFECTION, SITE NOT SPECIFIED (13) Hepatic encephalopathy Assessment/Plan: NH4 107 could be chronically elevated, will monitor lactulose when diarrhea resolved Code(s): K72.90 - HEPATIC FAILURE, UNSPECIFIED WITHOUT COMA I agree with ICU attending's plan for this pt Continue ICU level of care
[2017-11-13] MEDS ORDERED: NADOLOL 20 MG TABLET (FP) PO SCH ×2 (11:00)
[2017-11-13] MEDS ORDERED: CEPHALEXIN MONOHYDRATE 500 MG CAPSULE (UD) PO SCH (11:00)
[2017-11-13] MEDS ORDERED: PANTOPRAZOLE 40 MG TABLET (FP) PO SCH (11:15)
--- NOTE | 2017-11-13 11:23 | EKG ---
Test Reason : Blood Pressure : / mmHG Vent. Rate : 080 BPM Atrial Rate : 080 BPM P-R Int : 142 ms QRS Dur : 090 ms QT Int : 434 ms P-R-T Axes : -02 023 031 degrees QTc Int : 500 ms NORMAL SINUS RHYTHM PROLONGED QT ABNORMAL ECG WHEN COMPARED WITH ECG OF 11-NOV-2017 20:33, NONSPECIFIC T WAVE ABNORMALITY NO LONGER EVIDENT IN ANTERIOR LEADS Confirmed by SIMONA MONROE, BRIAN ([id number]) on 11/13/2017 11:23:06 AM Referred By: Confirmed By:BRIAN JARVIS MD
[2017-11-13] MEDS ORDERED: DEXTROSE 5%-WATER - 50 ML IVPB ONE (11:24)
[2017-11-13] MEDS ORDERED: cefTRIAXone SODIUM 1 GM VIAL ONE (11:24)
--- NOTE | 2017-11-13 13:51 | PN ---
Teaching Attending Note Name of Resident: Brandyn Willis ATTENDING PHYSICIAN STATEMENT I saw and evaluated the patient. I reviewed the resident's note and discussed the case with the resident. I agree with the resident's findings and plan as documented. SUBJECTIVE: Patient seen and examined in the ICU. Awake and alert, shaking and says she is cold. Denies CP or SOB. OBJECTIVE: Intake & Output 11/10/17 11/11/17 11/12/17 11/13/17 23:59 23:59 23:59 23:59 Intake Total 541.2 888 Output Total 1300 350 Balance -758.8 538 Weight 140 lb 167 lb 170 lb 8 oz Last Vital Signs Temp Pulse Resp BP Pulse Ox 99.9 F H 93 H 19 135/68 96 11/13/17 12:00 11/13/17 12:00 11/13/17 12:00 11/13/17 12:00 11/13/17 07:58 Active Medications Chlordiazepoxide HCl (Librium -) 25 mg PO [id number] [place] Stop: 11/13/17 23:01 Last Admin: 11/13/17 10:18 Dose: 25 mg Chlordiazepoxide HCl (Librium -) 15 mg PO [id number] [place] Stop: 11/14/17 23:01 Chlordiazepoxide HCl (Librium -) 25 mg PO Q4H PRN PRN Reason: WITHDRAWAL(CONT SUBST) Stop: 11/15/17 02:23 Last Admin: 11/13/17 10:30 Dose: 25 mg Chlorhexidine Gluconate (Hibiclens For Decolonization -) 1 applic TP HS [facility] Last Admin: 11/12/17 22:31 Dose: 1 applic Folic Acid (Folic Acid -) 1 mg PO DAILY [facility] Last Admin: 11/13/17 10:21 Dose: 1 mg Hydroxyzine HCl (Atarax -) 25 mg PO TID PRN PRN Reason: FOR ITCHING Octreotide Acetate 1,200 mcg/ (Dextrose) 500 mls @ 20.83 mls/hr IVPB ASDIR [place] PRN Reason: 50 MCG/HR Last Admin: 11/13/17 08:51 Dose: Not Given Ceftriaxone Sodium 1 gm/ (Dextrose) 50 mls @ 100 mls/hr IVPB DAILY [facility] Last Admin: 11/13/17 11:26 Dose: 100 mls/hr Levothyroxine Sodium (Synthroid -) 100 mcg PO DAILY@0700 [facility] Last Admin: 11/13/17 06:12 Dose: 100 mcg Magnesium Oxide (Mag-Ox -) 400 mg PO BID [facility] Last Admin: 11/13/17 10:16 Dose: 400 mg Metoclopramide HCl (Reglan Injection -) 10 mg IVPUSH Q8H PRN PRN Reason: NAUSEA AND/OR VOMITING Last Admin: 11/12/17 22:41 Dose: 10 mg Mupirocin (Bactroban Ointment (For Decolonization) -) 1 applic NS BID [facility] Stop: 11/17/17 09:59 Last Admin: 11/13/17 10:15 Dose: 1 applic Nadolol (Corgard -) 40 mg PO DAILY [facility] Last Admin: 11/13/17 11:13 Dose: 40 mg Pantoprazole Sodium (Protonix -) 40 mg PO BID [facility] Last Admin: 11/13/17 11:26 Dose: 40 mg Multivit/Folic Acid/Iron ( Vitamins (Sjr) -) 1 tab PO DAILY [facility] Last Admin: 11/13/17 10:17 Dose: 1 tab Thiamine HCl (Vitamin B1 -) 100 mg PO HS [facility] Last Admin: 11/12/17 22:11 Dose: 100 mg Gen: awake, restless Heart: tachycardic, regular Lung: decreased breath sounds at the bases Abd: soft, nontender Ext: no edema Laboratory Results - last 24 hr 11/11/17 11/12/17 11/12/17 23:43 03:00 06:05 WBC RBC Hgb Hct MCV MCH MCHC RDW Plt Count MPV Neutrophils % Neutrophils % (Manual) 63.9 Band Neutrophils % 15.5 Lymphocytes % Lymphocytes % (Manual) 15.5 Monocytes % Monocytes % (Manual) 3 L Eosinophils % Eosinophils % (Manual) 0.0 Basophils % Basophils % (Manual) 2.0 Myelocytes % (Man) 0 Promyelocytes % (Man) 0 Blast Cells % (Manual) 0 Nucleated RBC % 1 H Metamyelocytes 0 Platelet Estimate Decreased Polychromasia 1+ Poikilocytosis 0 Anisocytosis 1+ Microcytosis 1+ PT with INR INR PTT (Actin FS) Fibrinogen Sodium Potassium Chloride Carbon Dioxide Anion Gap BUN Creatinine Creat Clearance w eGFR Random Glucose Calcium Phosphorus Magnesium Iron 41 TIBC 342 Iron Saturation 12 L Total Bilirubin Direct Bilirubin AST ALT Alkaline Phosphatase Ammonia Creatine Kinase Creatine Kinase Index CK-MB (CK-2) Troponin I Total Protein Albumin Stool Occult Blood Crossmatch See Detail 11/12/17 11/12/17 11/12/17 09:11 17:15 17:15 WBC 4.4 D RBC 2.63 L D Hgb 8.7 L D Hct 25.2 L D MCV 96.0 MCH 33.3 MCHC 34.6 RDW 18.3 H D Plt Count 19 L* D MPV 8.2 Neutrophils % Neutrophils % (Manual) Band Neutrophils % Lymphocytes % Lymphocytes % (Manual) Monocytes % Monocytes % (Manual) Eosinophils % Eosinophils % (Manual) Basophils % Basophils % (Manual) Myelocytes % (Man) Promyelocytes % (Man) Blast Cells % (Manual) Nucleated RBC % Metamyelocytes Platelet Estimate Polychromasia Poikilocytosis Anisocytosis Microcytosis PT with INR INR PTT (Actin FS) Fibrinogen Sodium Potassium 3.5 Chloride Carbon Dioxide Anion Gap BUN Creatinine Creat Clearance w eGFR Random Glucose Calcium Phosphorus Magnesium 2.5 H Iron TIBC Iron Saturation Total Bilirubin Direct Bilirubin AST ALT Alkaline Phosphatase Ammonia Creatine Kinase Creatine Kinase Index CK-MB (CK-2) Troponin I Total Protein Albumin Stool Occult Blood Negative Crossmatch 11/12/17 11/12/17 11/12/17 17:15 17:15 18:00 WBC RBC Hgb Hct MCV MCH MCHC RDW Plt Count MPV Neutrophils % Neutrophils % (Manual) Band Neutrophils % Lymphocytes % Lymphocytes % (Manual) Monocytes % Monocytes % (Manual) Eosinophils % Eosinophils % (Manual) Basophils % Basophils % (Manual) Myelocytes % (Man) Promyelocytes % (Man) Blast Cells % (Manual) Nucleated RBC % Metamyelocytes Platelet Estimate Polychromasia Poikilocytosis Anisocytosis Microcytosis PT with INR 15.80 H INR 1.40 H PTT (Actin FS) 29.5 Fibrinogen 267.0 Sodium Potassium Chloride Carbon Dioxide Anion Gap BUN Creatinine Creat Clearance w eGFR Random Glucose Calcium Phosphorus Magnesium Iron TIBC Iron Saturation Total Bilirubin Direct Bilirubin AST ALT Alkaline Phosphatase Ammonia Creatine Kinase 313 H Creatine Kinase Index 0.7 CK-MB (CK-2) 2.349 Troponin I 0.08 H Total Protein Albumin Stool Occult Blood Crossmatch 11/12/17 11/13/17 11/13/17 20:45 05:32 05:32 WBC 4.0 RBC 2.65 L Hgb 8.9 L Hct 25.3 L MCV 95.3 MCH 33.5 MCHC 35.1 RDW 19.0 H Plt Count 17 L* MPV 8.7 Neutrophils % 55.5 D Neutrophils % (Manual) Band Neutrophils % Lymphocytes % 26.7 D Lymphocytes % (Manual) Monocytes % 15.6 H Monocytes % (Manual) Eosinophils % 1.5 D Eosinophils % (Manual) Basophils % 0.7 Basophils % (Manual) Myelocytes % (Man) Promyelocytes % (Man) Blast Cells % (Manual) Nucleated RBC % Metamyelocytes Platelet Estimate Polychromasia Poikilocytosis Anisocytosis Microcytosis PT with INR 16.30 H INR 1.44 H PTT (Actin FS) Fibrinogen Sodium Potassium Chloride Carbon Dioxide Anion Gap BUN Creatinine Creat Clearance w eGFR Random Glucose Calcium Phosphorus Magnesium Iron TIBC Iron Saturation Total Bilirubin Direct Bilirubin AST ALT Alkaline Phosphatase Ammonia Creatine Kinase Creatine Kinase Index CK-MB (CK-2) Troponin I 0.08 H Total Protein Albumin Stool Occult Blood Crossmatch 11/13/17 11/13/17 11/13/17 05:32 05:32 05:32 WBC RBC Hgb Hct MCV MCH MCHC RDW Plt Count MPV Neutrophils % Neutrophils % (Manual) Band Neutrophils % Lymphocytes % Lymphocytes % (Manual) Monocytes % Monocytes % (Manual) Eosinophils % Eosinophils % (Manual) Basophils % Basophils % (Manual) Myelocytes % (Man) Promyelocytes % (Man) Blast Cells % (Manual) Nucleated RBC % Metamyelocytes Platelet Estimate Polychromasia Poikilocytosis Anisocytosis Microcytosis PT with INR INR PTT (Actin FS) Fibrinogen Sodium 139 Potassium 3.9 Chloride 105 Carbon Dioxide 23 Anion Gap 11 BUN 14 Creatinine 1.2 H Creat Clearance w eGFR 46.82 Random Glucose 131 H Calcium 7.9 L Phosphorus 2.0 L Magnesium 2.3 Iron TIBC Iron Saturation Total Bilirubin 5.3 H D 5.2 H Direct Bilirubin 3.2 H AST 79 H 80 H ALT 20 20 Alkaline Phosphatase 177 H 180 H Ammonia 107.29 H Creatine Kinase Creatine Kinase Index CK-MB (CK-2) Troponin I Total Protein 6.9 6.9 Albumin 2.8 L 2.9 L Stool Occult Blood Crossmatch 11/13/17 05:32 WBC RBC Hgb Hct MCV MCH MCHC RDW Plt Count MPV Neutrophils % Neutrophils % (Manual) Band Neutrophils % Lymphocytes % Lymphocytes % (Manual) Monocytes % Monocytes % (Manual) Eosinophils % Eosinophils % (Manual) Basophils % Basophils % (Manual) Myelocytes % (Man) Promyelocytes % (Man) Blast Cells % (Manual) Nucleated RBC % Metamyelocytes Platelet Estimate Polychromasia Poikilocytosis Anisocytosis Microcytosis PT with INR INR PTT (Actin FS) Fibrinogen Sodium Potassium Chloride Carbon Dioxide Anion Gap BUN Creatinine Creat Clearance w eGFR Random Glucose Calcium Phosphorus Magnesium Iron TIBC Iron Saturation Total Bilirubin Direct Bilirubin AST ALT Alkaline Phosphatase Ammonia Creatine Kinase Creatine Kinase Index CK-MB (CK-2) Troponin I 0.06 H Total Protein Albumin Stool Occult Blood Crossmatch ASSESSMENT AND PLAN: Alcohol Intoxication/Abuse Pancytopenia/Anemia/Severe Thrombocytopenia Liver Cirrhosis Splenomegaly Coagulopathy - transfuse PRBC, platelets - monitor CBC, coags - replete lytes, vitamins - vitamin K PRN - IVF - protonix, octreotide drips - librium protocol - Ongoing GI workup. - continue ICU monitoring Dr Melendez critical care time spent in reviewing chart, evaluating patient and formulating plan 35 min
--- NOTE | 2017-11-13 13:55 | PN ---
Progress Note (short form) - Note Progress Note: O/E: GEneral: Poor hygeine, +alcohol breath HEENT: NCAT Abd: NT, no ascites Extre: no CCE Neuro; Awake, +tremors positive Last Vital Signs Temp Pulse Resp BP Pulse Ox 99.9 F H 93 H 19 135/68 96 11/13/17 12:00 11/13/17 12:00 11/13/17 12:00 11/13/17 12:00 11/13/17 07:58 CBC, BMP 11/13/17 05:32 11/13/17 05:32 Current Medications Generic Name Dose Route Start Last Admin Trade Name Freq PRN Reason Stop Dose Admin Chlordiazepoxide HCl 25 mg 11/13/17 05:00 11/13/17 10:18 Librium - PO 11/13/17 23:01 25 mg [id number] [place] Administration Chlordiazepoxide HCl 15 mg 11/14/17 05:00 Librium - PO 11/14/17 23:01 [id number] [place] Chlordiazepoxide HCl 25 mg 11/12/17 02:24 11/13/17 10:30 Librium - PO 11/15/17 02:23 25 mg Q4H PRN Administration WITHDRAWAL(CONT SUBST) Chlorhexidine Gluconate 1 applic 11/12/17 22:00 11/12/17 22:31 Hibiclens For Decolonization - TP 1 applic HS [place] Administration Folic Acid 1 mg 11/13/17 10:00 11/13/17 10:21 Folic Acid - PO 1 mg DAILY [place] Administration Hydroxyzine HCl 25 mg 11/12/17 16:01 Atarax - PO TID PRN FOR ITCHING Octreotide Acetate 1,200 mcg/ 500 mls @ 20.83 mls/hr 11/12/17 07:45 11/13/17 08:51 Dextrose IVPB Not Given ASDIR [place] 50 MCG/HR Ceftriaxone Sodium 1 gm/ 50 mls @ 100 mls/hr 11/13/17 10:30 11/13/17 11:26 Dextrose IVPB 100 mls/hr DAILY [place] Administration Levothyroxine Sodium 100 mcg 11/13/17 07:00 11/13/17 06:12 Synthroid - PO 100 mcg DAILY@0700 [place] Administration Magnesium Oxide 400 mg 11/12/17 22:00 11/13/17 10:16 Mag-Ox - PO 400 mg BID [place] Administration Metoclopramide HCl 10 mg 11/12/17 22:36 11/12/17 22:41 Reglan Injection - IVPUSH 10 mg Q8H PRN Administration NAUSEA AND/OR VOMITING Mupirocin 1 applic 11/12/17 10:00 11/13/17 10:15 Bactroban Ointment (For Decolonization) - NS 11/17/17 09:59 1 applic BID [place] Administration Nadolol 40 mg 11/13/17 11:00 11/13/17 11:13 Corgard - PO 40 mg DAILY [place] Administration Pantoprazole Sodium 40 mg 11/13/17 11:15 11/13/17 11:26 Protonix - PO 40 mg BID [place] Administration Multivit/Folic Acid/Iron 1 tab 11/13/17 10:00 11/13/17 10:17 Vitamins (Sjr) - PO 1 tab DAILY [place] Administration Thiamine HCl 100 mg 11/12/17 22:00 11/12/17 22:11 Vitamin B1 - PO 100 mg HS [place] Administration coagulopathy/pancytopenia from underlying cirrhosis ESLD/portal HTN/ Hypersplenism./acute alcohol induced bone marrow toxicity Supportive transfusion give Platelets GI f/u noted alcohol WD protocol
[2017-11-13] MEDS ORDERED: chlordiazePOXIDE HCL 25 MG CAPSULE PO PRN (14:52)
[2017-11-13] MEDS ORDERED: METOCLOPRAMIDE HCL INJECTION 10 MG/2 ML VIAL IVPUSH PRN (14:52)
--- NOTE | 2017-11-13 15:11 | PN ---
Progress Note, Physician History of Present Illness: No events. No stigmata of ongoing gastrointestinal blood loss. Awake, alert, oriented. Complaints of feeling tired however not in distress, or discomfort. - Current Medication List Current Medications: Active Medications Chlordiazepoxide HCl (Librium -) 25 mg PO Q4H PRN PRN Reason: WITHDRAWAL(CONT SUBST) Stop: 11/15/17 02:23 Chlordiazepoxide HCl (Librium -) 25 mg PO [id number] [facility] Stop: 11/13/17 23:01 Chlordiazepoxide HCl (Librium -) 15 mg PO [id number] [place] Stop: 11/14/17 23:01 Chlorhexidine Gluconate (Hibiclens For Decolonization -) 1 applic TP HS [facility] Folic Acid (Folic Acid -) 1 mg PO DAILY [place] Hydroxyzine HCl (Atarax -) 25 mg PO Q8H PRN PRN Reason: FOR ITCHING Ceftriaxone Sodium 1 gm/ (Dextrose) 50 mls @ 100 mls/hr IVPB DAILY [facility] Octreotide Acetate 1,200 mcg/ (Dextrose) 500 mls @ 20.83 mls/hr IVPB ASDIR [place] PRN Reason: 50 MCG/HR Levothyroxine Sodium (Synthroid -) 100 mcg PO DAILY@0700 [facility] Magnesium Oxide (Mag-Ox -) 400 mg PO BID [place] Metoclopramide HCl (Reglan Injection -) 10 mg IVPUSH Q8H PRN PRN Reason: NAUSEA AND/OR VOMITING Mupirocin (Bactroban Ointment (For Decolonization) -) 1 applic NS BID [facility] Stop: 11/17/17 09:59 Nadolol (Corgard -) 40 mg PO DAILY [facility] Pantoprazole Sodium (Protonix -) 40 mg PO BID [facility] Multivit/Folic Acid/Iron ( Vitamins (Sjr) -) 1 tab PO DAILY [facility] Thiamine HCl (Vitamin B1 -) 100 mg PO HS [facility] - Objective Vital Signs: Vital Signs Temperature 99.9 F H 11/13/17 12:00 Pulse Rate 90 11/13/17 14:00 Respiratory Rate 20 11/13/17 14:00 Blood Pressure 109/68 11/13/17 14:00 O2 Sat by Pulse Oximetry (%) 96 11/13/17 07:58 Constitutional: Yes: No Distress, Calm Gastrointestinal: Yes: Soft. No: Melena, Rectal Bleeding, Tenderness, Vomiting Neurological: Yes: Alert, Oriented. No: Confusion Labs: CBC, BMP 11/13/17 05:32 11/13/17 05:32 INR, PTT INR 1.44 (0.82-1.09) H 11/13/17 05:32 Fibrinogen 267.0 mg/dL (238-498) 11/12/17 17:15 Laboratory Last Values WBC 4.0 K/mm3 (4.0-10.0) 11/13/17 05:32 RBC 2.65 M/mm3 (3.60-5.2) L 11/13/17 05:32 Hgb 8.9 GM/dL (10.7-15.3) L 11/13/17 05:32 Hct 25.3 % (32.4-45.2) L 11/13/17 05:32 MCV 95.3 fl (80-96) 11/13/17 05:32 MCH 33.5 pg (25.7-33.7) 11/13/17 05:32 MCHC 35.1 g/dl (32.0-36.0) 11/13/17 05:32 RDW 19.0 % (11.6-15.6) H 11/13/17 05:32 Plt Count 17 K/MM3 (134-434) L* 11/13/17 05:32 MPV 8.7 fl (7.5-11.1) 11/13/17 05:32 Neutrophils % 55.5 % (42.8-82.8) D 11/13/17 05:32 Neutrophils % (Manual) 63.9 % (42.8-82.8) 11/12/17 06:05 Band Neutrophils % 15.5 % 11/12/17 06:05 Lymphocytes % 26.7 % (8-40) D 11/13/17 05:32 Lymphocytes % (Manual) 15.5 % (8-40) 11/12/17 06:05 Monocytes % 15.6 % (3.8-10.2) H 11/13/17 05:32 Monocytes % (Manual) 3 % (3.8-10.2) L 11/12/17 06:05 Eosinophils % 1.5 % (0-4.5) D 11/13/17 05:32 Eosinophils % (Manual) 0.0 % (0-4.5) 11/12/17 06:05 Basophils % 0.7 % (0-2.0) 11/13/17 05:32 Basophils % (Manual) 2.0 % (0-2.0) 11/12/17 06:05 Myelocytes % (Man) 0 % (0-2) 11/12/17 06:05 Promyelocytes % (Man) 0 % (0-2) 11/12/17 06:05 Blast Cells % (Manual) 0 % (0-0) 11/12/17 06:05 Nucleated RBC % 1 % (0-0) H 11/12/17 06:05 Metamyelocytes 0 % (0-2) 11/12/17 06:05 Platelet Estimate Decreased 11/12/17 06:05 Polychromasia 1+ 11/12/17 06:05 Poikilocytosis 0 11/12/17 06:05 Anisocytosis 1+ 11/12/17 06:05 Microcytosis 1+ 11/12/17 06:05 PT with INR 16.30 SEC (9.98-11.88) H 11/13/17 05:32 INR 1.44 (0.82-1.09) H 11/13/17 05:32 PTT (Actin FS) 29.5 SECONDS (26.9-34.4) 11/12/17 17:15 Fibrinogen 267.0 mg/dL (238-498) 11/12/17 17:15 Sodium 139 mmol/L (136-145) 11/13/17 05:32 Potassium 3.9 mmol/L (3.5-5.1) 11/13/17 05:32 Chloride 105 mmol/L (98-107) 11/13/17 05:32 Carbon Dioxide 23 mmol/L (21-32) 11/13/17 05:32 Anion Gap 11 (8-16) 11/13/17 05:32 BUN 14 mg/dL (7-18) 11/13/17 05:32 Creatinine 1.2 mg/dL (0.55-1.02) H 11/13/17 05:32 Creat Clearance w eGFR 46.82 (>60) 11/13/17 05:32 Random Glucose 131 mg/dL (74-106) H 11/13/17 05:32 Calcium 7.9 mg/dL (8.5-10.1) L 11/13/17 05:32 Phosphorus 2.0 mg/dL (2.5-4.9) L 11/13/17 05:32 Magnesium 2.3 mg/dL (1.8-2.4) 11/13/17 05:32 Iron 41 ug/dL (27-159) 11/12/17 03:00 TIBC 342 ug/dL (250-450) 11/12/17 03:00 Iron Saturation 12 % (15-55) L 11/12/17 03:00 Ferritin 66.514 ng/ml (6.9-282.5) 11/12/17 03:00 Total Bilirubin 5.3 mg/dL (0.2-1.0) H D 11/13/17 05:32 Direct Bilirubin 3.2 mg/dL (0.0-0.2) H 11/13/17 05:32 AST 79 U/L (15-37) H 11/13/17 05:32 ALT 20 U/L (12-78) 11/13/17 05:32 Alkaline Phosphatase 177 U/L (45-117) H 11/13/17 05:32 Ammonia 107.29 umol/L (11-32) H 11/13/17 05:32 Creatine Kinase 313 IU/L (26-192) H 11/12/17 18:00 Creatine Kinase Index 0.7 % (0.0-5.0) 11/12/17 18:00 CK-MB (CK-2) 2.349 ng/mL (0.5-3.6) 11/12/17 18:00 Troponin I 0.06 ng/ml (0.00-0.05) H 11/13/17 05:32 B-Natriuretic Peptide 22.95 pg/ml (5-125) 11/11/17 20:26 Total Protein 6.9 g/dl (6.4-8.2) 11/13/17 05:32 Albumin 2.8 g/dl (3.4-5.0) L 11/13/17 05:32 TSH 0.99 uIU/ml (0.358-3.74) 11/12/17 06:05 Urine Color Yellow 11/11/17 23:49 Urine Appearance Clear 11/11/17 23:49 Urine pH 7.0 (5.0-8.0) 11/11/17 23:49 Ur Specific Heron 1.004 (1.001-1.035) 11/11/17 23:49 Urine Protein Negative (NEGATIVE) 11/11/17 23:49 Urine Glucose (UA) Negative (NEGATIVE) 11/11/17 23:49 Urine Ketones Trace (NEGATIVE) H 11/11/17 23:49 Urine Blood 1+ (NEGATIVE) H 11/11/17 23:49 Urine Nitrite Negative (NEGATIVE) 11/11/17 23:49 Urine Bilirubin Negative (<2.0 mg/dL) 11/11/17 23:49 Urine Urobilinogen 4.0 e.u/dl mg/dL (0.2-1.0) H 11/11/17 23:49 Ur Leukocyte Esterase 1+ (NEGATIVE) H 11/11/17 23:49 Urine WBC (Auto) 12 /hpf (3-5) 11/11/17 23:49 Urine RBC (Auto) 1 /hpf (0-3) 11/11/17 23:49 Ur Epithelial Cells Rare /HPF (FEW) 11/11/17 23:49 Urine Bacteria Many /hpf (NONE SEEN) 11/11/17 23:49 Stool Occult Blood Negative (NEGATIVE) 11/12/17 09:23 Opiates Screen Negative ng/ml (FVFYGM=196) 11/12/17 08:30 Methadone Screen Negative ng/ml (KLTWNB=319) 11/12/17 08:30 Barbiturate Screen Negative ng/ml (IUQBRZ=508) 11/12/17 08:30 Phencyclidine Screen Negative ng/ml (CUTOFF=25) 11/12/17 08:30 Ur Amphetamines Screen Negative ng/ml (WSETYQ=127) 11/12/17 08:30 MDMA (Ecstasy) Screen Negative ng/ml (QSBBWF=764) 11/12/17 08:30 Benzodiazepines Screen Negative ng/ml (OPSHWY=134) 11/12/17 08:30 Cocaine Screen Negative ng/ml (TSAWNN=675) 11/12/17 08:30 U Marijuana (THC) Screen Negative ng/ml (CUTOFF=50) 11/12/17 08:30 Alcohol, Quantitative 322.36 mg/dL (0.0-5.0) H* 11/11/17 22:56 Blood Type O NEGATIVE 11/11/17 23:43 Antibody Screen Negative 11/11/17 23:43 Crossmatch See Detail 11/11/17 23:43 Problem List - Problems (1) Acute alcohol intoxication Code(s): F10.929 - ALCOHOL USE, UNSPECIFIED WITH INTOXICATION, UNSPECIFIED (2) Thrombocytopenia Code(s): D69.6 - THROMBOCYTOPENIA, UNSPECIFIED (3) Advanced cirrhosis of liver Code(s): K74.60 - UNSPECIFIED CIRRHOSIS OF LIVER (4) Alcoholic cirrhosis of liver Code(s): K70.30 - ALCOHOLIC CIRRHOSIS OF LIVER WITHOUT ASCITES Qualifiers: Ascites presence: with ascites Qualified Code(s): K70.31 - Alcoholic cirrhosis of liver with ascites Assessment/Plan He remains significantly thrombocytopenic. No stigmata of ongoing gastrointestinal blood loss. Liver chemistries stable. Continue current care. PPI po, d/c octreotide. PLT as needed. Will need EGD when PLT at about 100 or above (if variceal banding needed to be performed). Follow autoimmune, viral serologies, alpha-fetoprotein. Discussed with the patient and her significant other at bedside.
[2017-11-13] MEDS: CHLORHEXIDINE GLUCONATE 4% CLEANSER FOR DECOLONIZATION TP SCH (21:11)
[2017-11-13] MEDS: PANTOPRAZOLE 40 MG TABLET (FP) PO SCH (21:21)
[2017-11-13] MEDS ORDERED: THIAMINE HCL 100 MG TABLET (FP) PO SCH (22:00)
[2017-11-14 00:08] LABS: HBSAG SCREEN Negative (Negative); HEP A AB, IGM Negative (Negative); HEP B CORE AB, TOT Negative (Negative)
[2017-11-14] MEDS: chlordiazePOXIDE HCL 25 MG CAPSULE PO SCH (00:26)
[2017-11-14] MEDS ORDERED: chlordiazePOXIDE 5 MG CAPSULE PO SCH (05:00)
[2017-11-14] MEDS: chlordiazePOXIDE 5 MG CAPSULE PO SCH ×4 (05:01→22:26)
[2017-11-14] MEDS: LEVOTHYROXINE NA 100 MCG TABLET (FP) PO SCH (06:30)
[2017-11-14 07:57] LABS: HEMATOCRIT 27.3 % (32.4-45.2); HEMOGLOBIN 9.5 GM/dL (10.7-15.3); MCH 32.8 pg (25.7-33.7); MCHC 34.7 g/dl (32.0-36.0); MEAN CELL VOLUME 94.6 fl (80-96); MEAN PLT VOLUME 8.3 fl (7.5-11.1); RBC 2.89 M/mm3 (3.60-5.2); WHITE BLOOD COUNT 6.4 K/mm3 (4.0-10.0)
[2017-11-14 08:04] LABS: ACTIVATED PTT 29.7 SECONDS (26.9-34.4)
[2017-11-14 08:08] LABS: PLATELET COUNT 18 K/MM3 (134-434)
[2017-11-14 08:16] LABS: CHLORIDE 104 mmol/L (98-107); POTASSIUM 3.5 mmol/L (3.5-5.1); SODIUM 138 mmol/L (136-145)
[2017-11-14 08:40] LABS: ALBUMIN 2.9 g/dl (3.4-5.0); ALK PHOS 171 U/L (45-117); ANION GAP 7 (8-16); BILIRUBIN,TOTAL 4.8 mg/dL (0.2-1.0); BLOOD UREA NITROGEN 13 mg/dL (7-18); CALCIUM 8.7 mg/dL (8.5-10.1); CO2 27 mmol/L (21-32); CREATININE 1.3 mg/dL (0.55-1.02); GLUCOSE,RANDOM 115 mg/dL (74-106); MAGNESIUM 1.9 mg/dL (1.8-2.4); SGOT/AST 72 U/L (15-37); SGPT/ALT 21 U/L (12-78); TOT PROT 7.1 g/dl (6.4-8.2)
[2017-11-14 08:57] LABS: PHOSPHOROUS 0.6 mg/dL (2.5-4.9)
[2017-11-14 09:28] LABS: ANISOCYTOSIS 1+; PLATELET ESTIMATE DECREASED
[2017-11-14 09:33] LABS: INR 1.65 (0.82-1.09); PROTHROMBIN TIME (PATIENT) 18.7 SEC (9.98-11.88)
[2017-11-14] MEDS ORDERED: CEFTRIAXONE 1 GM in DEXTROSE 5%-WATER - 50 ML IVPB SCH (10:00)
[2017-11-14] MEDS ORDERED: NADOLOL 20 MG TABLET (FP) ONE (10:24)
[2017-11-14] MEDS ORDERED: DEXTROSE 5%-WATER - 50 ML IVPB ONE (10:24)
[2017-11-14] MEDS ORDERED: cefTRIAXone SODIUM 1 GM VIAL ONE (10:24)
[2017-11-14] MEDS: NADOLOL 40 MG TABLET (FP) PO SCH (10:29)
[2017-11-14] MEDS: FOLIC ACID 1 MG TABLET (FP) PO SCH (10:30)
[2017-11-14] MEDS: MAGNESIUM OXIDE 400 MG TABLET (FP) PO SCH ×2 (10:30→22:26)
[2017-11-14] MEDS: PANTOPRAZOLE 40 MG TABLET (FP) PO SCH ×2 (10:30→22:26)
[2017-11-14] MEDS: PRENATAL VITAMINS W/ FOLIC ACID TABLET (FP) PO SCH (10:30)
[2017-11-14] MEDS: MUPIROCIN 2% TOPICAL OINTMENT FOR DECOLONIZATION NS SCH ×2 (10:31→22:18)
--- NOTE | 2017-11-14 12:26 | PN ---
Progress Note, Physician Chief Complaint: Ms Andino says she is feeling better today but with weakness. No cp, sob, n/v. - Current Medication List Current Medications: Active Medications Chlordiazepoxide HCl (Librium -) 25 mg PO Q4H PRN PRN Reason: WITHDRAWAL(CONT SUBST) Stop: 11/15/17 02:23 Last Admin: 11/14/17 05:01 Dose: 25 mg Chlordiazepoxide HCl (Librium -) 15 mg PO [id number] [facility] Stop: 11/14/17 23:01 Last Admin: 11/14/17 10:28 Dose: 15 mg Chlorhexidine Gluconate (Hibiclens For Decolonization -) 1 applic TP HS [facility] Last Admin: 11/13/17 21:11 Dose: Not Given Folic Acid (Folic Acid -) 1 mg PO DAILY [facility] Last Admin: 11/14/17 10:30 Dose: 1 mg Hydroxyzine HCl (Atarax -) 25 mg PO Q8H PRN PRN Reason: FOR ITCHING Ceftriaxone Sodium 1 gm/ (Dextrose) 50 mls @ 100 mls/hr IVPB DAILY [facility] Last Admin: 11/14/17 10:28 Dose: 100 mls/hr Octreotide Acetate 1,200 mcg/ (Dextrose) 500 mls @ 20.83 mls/hr IVPB ASDIR [place] PRN Reason: 50 MCG/HR Last Admin: 11/13/17 20:52 Dose: 20.83 mls/hr Levothyroxine Sodium (Synthroid -) 100 mcg PO DAILY@0700 [facility] Last Admin: 11/14/17 06:30 Dose: 100 mcg Magnesium Oxide (Mag-Ox -) 400 mg PO BID [facility] Last Admin: 11/14/17 10:30 Dose: 400 mg Metoclopramide HCl (Reglan Injection -) 10 mg IVPUSH Q8H PRN PRN Reason: NAUSEA AND/OR VOMITING Mupirocin (Bactroban Ointment (For Decolonization) -) 1 applic NS BID [facility] Stop: 11/17/17 09:59 Last Admin: 11/14/17 10:31 Dose: Not Given Nadolol (Corgard -) 40 mg PO DAILY [facility] Last Admin: 11/14/17 10:29 Dose: 40 mg Pantoprazole Sodium (Protonix -) 40 mg PO BID [facility] Last Admin: 11/14/17 10:30 Dose: 40 mg Multivit/Folic Acid/Iron ( Vitamins (Sjr) -) 1 tab PO DAILY [place] Last Admin: 11/14/17 10:30 Dose: 1 tab Thiamine HCl (Vitamin B1 -) 100 mg PO HS [facility] Last Admin: 11/13/17 21:21 Dose: 100 mg - Objective Vital Signs: Vital Signs Temperature 36.6 C 11/14/17 10:00 Pulse Rate 80 11/14/17 10:00 Respiratory Rate 18 11/14/17 10:00 Blood Pressure 132/78 11/14/17 10:00 O2 Sat by Pulse Oximetry (%) 95 11/14/17 06:16 Constitutional: Yes: No Distress, Calm, Obese Cardiovascular: Yes: Regular Rate and Rhythm. No: Gallop, Murmur, Rub Respiratory: Yes: Regular, CTA Bilaterally. No: Rales, Rhonchi, Wheezes Gastrointestinal: Yes: Normal Bowel Sounds, Soft. No: Distention, Tenderness Extremities: Yes: WNL Edema: No Labs: CBC, BMP 11/14/17 06:30 11/14/17 06:30 INR, PTT INR 1.65 (0.82-1.09) H 11/14/17 06:30 Fibrinogen 226.0 mg/dL (238-498) L 11/14/17 06:30 Assessment/Plan (1) Alcoholic cirrhosis of liver Assessment/Plan: -chronic -GI following -cause of thrombocytopenia -monitor Code(s): K70.30 - ALCOHOLIC CIRRHOSIS OF LIVER WITHOUT ASCITES Qualifiers: Ascites presence: with ascites Qualified Code(s): K70.31 - Alcoholic cirrhosis of liver with ascites (2) Pancytopenia Assessment/Plan: -s/p transfusion, H/H improved -still with low platelets -hematology following, defer transfusion to heme Code(s): D61.818 - OTHER PANCYTOPENIA (3) Alcohol dependence with uncomplicated withdrawal Assessment/Plan: -appreciate addiction medicine assistance -on librium Code(s): F10.230 - ALCOHOL DEPENDENCE WITH WITHDRAWAL, UNCOMPLICATED (4) Hypokalemia Assessment/Plan: -monitor -replete as needd Code(s): E87.6 - HYPOKALEMIA (5) Hypomagnesemia Assessment/Plan: -replete as needed Code(s): E83.42 - HYPOMAGNESEMIA (6) Hypophosphatemia Assessment/Plan: -very low -treat with both IV and PO phosphate replacement Code(s): E83.39 - OTHER DISORDERS OF PHOSPHORUS METABOLISM (7) Splenomegaly Assessment/Plan: -stable Code(s): R16.1 - SPLENOMEGALY, NOT ELSEWHERE CLASSIFIED (8) Coagulopathy Assessment/Plan: -give another dose vitamin k today (9) Hypothyroid Assessment/Plan: -continue levothyroxine Code(s): E03.9 - HYPOTHYROIDISM, UNSPECIFIED Qualifiers: (10) Falling episodes Assessment/Plan: -states occurred again -? if secondary to alcoholism -will consult neurology -PT consult Code(s): R29.6 - REPEATED FALLS (11) UTI (urinary tract infection) Assessment/Plan: -ESBL -consult ID Code(s): N39.0 - URINARY TRACT INFECTION, SITE NOT SPECIFIED (12) Hepatic encephalopathy Assessment/Plan: -start lactulose Code(s): K72.90 - HEPATIC FAILURE, UNSPECIFIED WITHOUT COMA
--- NOTE | 2017-11-14 14:39 | CON.ID ---
Consult Consult Specialty:: infectious diseases Referred by:: Reason for Consultation:: esbl uti - History of Present Illness History of Present Illness: 56 y/o woman with a PMHx of Chronic Alcoholism, Chronic Thrombocytopenia, Liver Cirrhosis, Cocaine Abuse, GERd, Thyroid Disease, Pancreatitis. admitted with weakness, fatigue, alcohol intoxication. Patient reports drinking 1 pint of whiskey daily. She reports falling recently, denies LOC or head trauma. patient is been seen by detox i was called in because patients is now growing esbl patient is awake but very slow her main complaint is weakness and not feeling well - History Source History Provided By: Patient, Medical Record Limitations to Obtaining History: Poor Historian - Past Medical History Gastrointestinal: Yes: GERD, Pancreatitis (recurrent) Hepatobiliary: Yes: Cirrhosis (possible) ...LMP: 08/01/12 Psych: Yes: Addictions Endocrine: Yes: Hypothyroidism - Past Surgical History Past Surgical History: Yes: - Alcohol/Substance Use Hx Alcohol Use: Yes (1-2 pints whiskey daily) Number of Drinks Daily: 2 (pints) History of Substance Use: reports: Cocaine (4 weeks ago) - Smoking History Smoking history: Never smoked Have you smoked in the past 12 months: No Aproximately how many cigarettes per day: 0 - Social History ADL: Independent History of Recent Travel: No Home Medications - Allergies Allergies/Adverse Reactions: Allergies Allergy/AdvReac Type Severity Reaction Status Date / Time lamotrigine [From Lamictal] Allergy Verified 11/11/17 20:04 Family Disease History - Family Disease History Family Disease History: Diabetes: Father (etoh), Heart Disease: Mother (anxiety, triple bypass, aortic repair), Other: Father Review of Systems - Review of Systems Constitutional: reports: Weakness Eyes: reports: No Symptoms HENT: reports: No Symptoms Neck: reports: No Symptoms Cardiovascular: reports: No Symptoms Respiratory: reports: No Symptoms Gastrointestinal: reports: No Symptoms Genitourinary: reports: No Symptoms Musculoskeletal: reports: Muscle Weakness Integumentary: reports: No Symptoms Neurological: reports: Other (unsteady gait fall) Hematology/Lymphatic: reports: No Symptoms Psychiatric: reports: No Symptoms Physical Exam Vital Signs: Vital Signs Temperature 98.1 F 11/14/17 14:35 Pulse Rate 75 11/14/17 14:35 Respiratory Rate 18 11/14/17 14:35 Blood Pressure 119/65 11/14/17 14:35 O2 Sat by Pulse Oximetry (%) 98 11/14/17 09:00 Constitutional: Yes: No Distress, Calm, Obese Eyes: Yes: Sclera Icterus HENT: Yes: Atraumatic, Normocephalic Neck: Yes: Supple, Trachea Midline Cardiovascular: Yes: Regular Rate and Rhythm Respiratory: Yes: Regular, CTA Bilaterally Gastrointestinal: Yes: Normal Bowel Sounds, Soft, Other Musculoskeletal: Yes: WNL Extremities: Yes: WNL Integumentary: Yes: Other (bruises on the abd) Neurological: Yes: Alert, Other Psychiatric: Yes: Other Labs: CBC, BMP 11/14/17 06:30 11/14/17 06:30 Imaging - Results Chest X-ray: Report Reviewed, Image Reviewed Cat Scan: Report Reviewed, Image Reviewed Assessment/Plan Assessment/Plan (1) Alcoholic cirrhosis of liver Code(s): K70.30 - ALCOHOLIC CIRRHOSIS OF LIVER WITHOUT ASCITES Qualifiers: Ascites presence: with ascites Qualified Code(s): K70.31 - Alcoholic cirrhosis of liver with ascites (2) Pancytopenia Code(s): D61.818 - OTHER PANCYTOPENIA (3) Alcohol dependence with uncomplicated withdrawal Code(s): F10.230 - ALCOHOL DEPENDENCE WITH WITHDRAWAL, UNCOMPLICATED (4) Hypokalemia Code(s): E87.6 - HYPOKALEMIA (5) Hypomagnesemia Code(s): E83.42 - HYPOMAGNESEMIA (6) Hypophosphatemia Code(s): E83.39 - OTHER DISORDERS OF PHOSPHORUS METABOLISM (7) Splenomegaly Code(s): R16.1 - SPLENOMEGALY, NOT ELSEWHERE CLASSIFIED (8) Coagulopathy (9) Hypothyroid Code(s): E03.9 - HYPOTHYROIDISM, UNSPECIFIED Qualifiers: (10) Falling episodes Code(s): R29.6 - REPEATED FALLS (11) UTI (urinary tract infection) Code(s): N39.0 - URINARY TRACT INFECTION, SITE NOT SPECIFIED (12) Hepatic encephalopathy Code(s): K72.90 - HEPATIC FAILURE, UNSPECIFIED WITHOUT COMA plan' continue as per detox will start patient on ertapenam will need for at least 2 weeks close watch on the mental tatus of the patient
--- NOTE | 2017-11-14 15:35 | PN ---
[facility] Progress Note (SOAP) Subjective: in good spirits, moved to floor, stable, completed detox, being put in isolation becuse of uti which she says is asympotmatic Objective: 11/14/17 15:35 Vital Signs - 24 hr 11/13/17 11/13/17 11/14/17 18:38 21:00 02:32 Temperature 99.6 F 99.2 F 98.3 F Pulse Rate 86 79 79 Respiratory 18 18 18 Rate Blood Pressure 140/69 126/70 129/65 O2 Sat by Pulse 92 L Oximetry (%) 11/14/17 11/14/17 11/14/17 06:00 06:16 09:00 Temperature 98.2 F Pulse Rate 72 Respiratory 18 Rate Blood Pressure 141/73 O2 Sat by Pulse 95 98 Oximetry (%) 11/14/17 11/14/17 10:00 14:35 Temperature 97.8 F 98.1 F Pulse Rate 80 75 Respiratory 18 18 Rate Blood Pressure 132/78 119/65 O2 Sat by Pulse Oximetry (%) Laboratory Results - last 24 hr 11/12/17 11/14/17 11/14/17 06:05 06:30 06:30 WBC RBC Hgb Hct MCV MCH MCHC RDW Plt Count MPV Neutrophils % Neutrophils % (Manual) Band Neutrophils % Lymphocytes % Lymphocytes % (Manual) Monocytes % (Manual) Eosinophils % (Manual) Basophils % (Manual) Myelocytes % (Man) Promyelocytes % (Man) Blast Cells % (Manual) Nucleated RBC % Metamyelocytes Hypochromia Platelet Estimate Polychromasia Anisocytosis Microcytosis PT with INR 18.70 H INR 1.65 H PTT (Actin FS) Fibrinogen Sodium Potassium Chloride Carbon Dioxide Anion Gap BUN Creatinine Creat Clearance w eGFR Random Glucose Calcium Phosphorus Magnesium Total Bilirubin AST ALT Alkaline Phosphatase Ammonia 49.70 H Total Protein Albumin Hep A IgM Ab Confirm Negative Hepatitis A Ab Total Positive H Hep Bs Antigen Negative Hep Bs Antibody Reactive Hep B Core Total Ab Negative 11/14/17 11/14/17 11/14/17 06:30 06:30 06:30 WBC 6.4 D RBC 2.89 L Hgb 9.5 L Hct 27.3 L MCV 94.6 MCH 32.8 MCHC 34.7 RDW 18.0 H Plt Count 18 L* MPV 8.3 Neutrophils % No Result Required. Neutrophils % (Manual) 61.9 Band Neutrophils % 1.0 Lymphocytes % No Result Required. Lymphocytes % (Manual) 25.7 D Monocytes % (Manual) 10 D Eosinophils % (Manual) 0.0 Basophils % (Manual) 0.0 Myelocytes % (Man) 0 Promyelocytes % (Man) 0 Blast Cells % (Manual) 0 Nucleated RBC % 0 Metamyelocytes 2 D Hypochromia 0 Platelet Estimate Decreased Polychromasia 0 Anisocytosis 1+ Microcytosis 1+ PT with INR INR PTT (Actin FS) 29.7 Fibrinogen 226.0 L Sodium 138 Potassium 3.5 Chloride 104 Carbon Dioxide 27 Anion Gap 7 L BUN 13 Creatinine 1.3 H Creat Clearance w eGFR 42.68 Random Glucose 115 H Calcium 8.7 Phosphorus 0.6 L* Magnesium 1.9 Total Bilirubin 4.8 H AST 72 H ALT 21 Alkaline Phosphatase 171 H Ammonia Total Protein 7.1 Albumin 2.9 L Hep A IgM Ab Confirm Hepatitis A Ab Total Hep Bs Antigen Hep Bs Antibody Hep B Core Total Ab Assessment: 11/19/17 17:24 alcohol withdrawal - completed detox, medically stable, can be tansferred for inpatient rehab at [facility] once patienet no longer needs isolation if she is in agreement and bed is available, insurance accepted.
[2017-11-14] MEDS: OCTREOTIDE ACETATE 1,200 MCG in DEXTROSE 5%-WATER - 488 ML IVPB SCH (16:07)
[2017-11-14] MEDS ORDERED: PHYTONADIONE 10 MG/1 ML AMP SQ ONE (16:30)
[2017-11-14] MEDS ORDERED: POTASSIUM PHOSPHATE 16 MM in DEXTROSE 5%-WATER - 250 ML IVPB ONE (16:30)
[2017-11-14] MEDS: ERTAPENEM SODIUM 1 GM in SODIUM CHLORIDE 100 ML IVPB SCH (17:43)
--- NOTE | 2017-11-14 18:50 | CON.NEURO ---
Consult Consult Specialty:: neurology Referred by:: deidre Reason for Consultation:: chronic imbalance - History of Present Illness Chief Complaint: imbalance and falling - History Source History Provided By: Patient, Medical Record Limitations to Obtaining History: Clinical Condition - Past Medical History Gastrointestinal: Yes: GERD, Pancreatitis (recurrent) Hepatobiliary: Yes: Cirrhosis (possible) ...LMP: 08/01/12 Psych: Yes: Addictions Endocrine: Yes: Hypothyroidism - Past Surgical History Past Surgical History: Yes: - Alcohol/Substance Use Hx Alcohol Use: Yes (1-2 pints whiskey daily) Number of Drinks Daily: 2 (pints) History of Substance Use: reports: Cocaine (4 weeks ago) - Smoking History Smoking history: Never smoked Have you smoked in the past 12 months: No Aproximately how many cigarettes per day: 0 - Social History ADL: Independent History of Recent Travel: No Home Medications - Allergies Allergies/Adverse Reactions: Allergies Allergy/AdvReac Type Severity Reaction Status Date / Time lamotrigine [From Lamictal] Allergy Verified 11/11/17 20:04 Family Disease History - Family Disease History Family Disease History: Diabetes: Father (etoh), Heart Disease: Mother (anxiety, triple bypass, aortic repair), Other: Father Review of Systems - Review of Systems Integumentary: reports: Bruising Physical Exam-Neuro Vital Signs: Vital Signs Temperature 98.1 F 11/14/17 16:53 Pulse Rate 65 11/14/17 16:53 Respiratory Rate 18 11/14/17 16:53 Blood Pressure 129/69 11/14/17 16:53 O2 Sat by Pulse Oximetry (%) 98 11/14/17 09:00 Constitutional: Yes: Other (multiple bruises throughout body) Labs: CBC, BMP 11/14/17 06:30 11/14/17 06:30 INR, PTT INR 1.65 (0.82-1.09) H 11/14/17 06:30 Fibrinogen 226.0 mg/dL (238-498) L 11/14/17 06:30 - Neuro Exam Level Of Consciousness: Yes: Alert, Oriented to Person, Oriented to Place, Oriented to Time Eyes: Yes: YESENIA, Nystagmus (intermittent, more to the left horizontal) Speech: WNL Cranial Nerves II-XII Intact: Yes DTR's: 1+ Left Bicep, 1+ Right Bicep, 1+ Left Tricep, 1+ Right Tricep, 1+ Left Brachioradialis, 1+ Right Brachioradialis Babinski: Absent Response to light touch: Normal Motor Strength: 5/5: Left Arm, Right Arm, Left Leg, Right Leg Gait: Other (retropulsion) Imaging - Results Cat Scan: Report Reviewed, Image Reviewed (mild atrophy) Problem List - Problems (1) Gait disorder Code(s): R26.9 - UNSPECIFIED ABNORMALITIES OF GAIT AND MOBILITY (2) Advanced cirrhosis of liver Code(s): K74.60 - UNSPECIFIED CIRRHOSIS OF LIVER (3) Alcoholic cirrhosis of liver Code(s): K70.30 - ALCOHOLIC CIRRHOSIS OF LIVER WITHOUT ASCITES Qualifiers: Ascites presence: with ascites Qualified Code(s): K70.31 - Alcoholic cirrhosis of liver with ascites (4) DVT prophylaxis Code(s): [id number] - (5) Decreased platelet count Code(s): D69.6 - THROMBOCYTOPENIA, UNSPECIFIED (6) Epistaxis Code(s): R04.0 - EPISTAXIS (7) Hepatic encephalopathy Code(s): K72.90 - HEPATIC FAILURE, UNSPECIFIED WITHOUT COMA (8) Hyperbilirubinemia Code(s): E80.6 - OTHER DISORDERS OF BILIRUBIN METABOLISM Assessment/Plan possible wernickes encephalopathy. Recommend giving Thiamine repletion. This is not full blown wernicke's but may be mild with nystagmus and ataxia. Would given IM thiamine 100 mg daily.
[2017-11-14] MEDS ORDERED: PT OWN MED DRAWER 7, Y5N ONE (19:16)
[2017-11-14] MEDS: CHLORHEXIDINE GLUCONATE 4% CLEANSER FOR DECOLONIZATION TP SCH (22:18)
[2017-11-14] MEDS: NAPH,MB-DB/K PH,MBDB POWDER PACKET PO SCH (22:26)
[2017-11-14] MEDS: LACTULOSE 20 GM/30 ML UDC (FOR ORAL USE ONLY) PO SCH (22:26)
[2017-11-14] MEDS: RIFAXIMIN 550 MG TABLET (UD) PO SCH (22:26)
[2017-11-15] MEDS: OCTREOTIDE ACETATE 1,200 MCG in DEXTROSE 5%-WATER - 488 ML IVPB SCH ×2 (02:32→17:07)
[2017-11-15] MEDS: LACTULOSE 20 GM/30 ML UDC (FOR ORAL USE ONLY) PO SCH ×3 (06:57→22:11)
[2017-11-15] MEDS: NAPH,MB-DB/K PH,MBDB POWDER PACKET PO SCH ×3 (06:57→22:12)
[2017-11-15] MEDS: LEVOTHYROXINE NA 100 MCG TABLET (FP) PO SCH (06:57)
[2017-11-15 08:18] LABS: BASO % 0.7 % (0-2.0); EOS % 3.3 % (0-4.5); HEMATOCRIT 29.1 % (32.4-45.2); HEMOGLOBIN 9.9 GM/dL (10.7-15.3); LYMPH % 23.1 % (8-40); MCH 32.8 pg (25.7-33.7); MEAN CELL VOLUME 96.7 fl (80-96); MEAN PLT VOLUME 8.4 fl (7.5-11.1); MONO % 12.9 % (3.8-10.2); RBC 3.02 M/mm3 (3.60-5.2); RDW 18.3 % (11.6-15.6); WHITE BLOOD COUNT 7.2 K/mm3 (4.0-10.0)
[2017-11-15 08:20] LABS: PLATELET COUNT 29 K/MM3 (134-434)
[2017-11-15 08:29] LABS: INR 1.52 (0.82-1.09); PROTHROMBIN TIME (PATIENT) 17.2 SEC (9.98-11.88)
[2017-11-15 08:32] LABS: ACTIVATED PTT 31.8 SECONDS (26.9-34.4)
[2017-11-15 08:42] LABS: ALBUMIN 2.8 g/dl (3.4-5.0); ALK PHOS 158 U/L (45-117); ANION GAP 10 (8-16); BILIRUBIN,DIRECT 2.4 mg/dL (0.0-0.2); BILIRUBIN,TOTAL 3.7 mg/dL (0.2-1.0); BLOOD UREA NITROGEN 13 mg/dL (7-18); CALCIUM 8.9 mg/dL (8.5-10.1); CHLORIDE 104 mmol/L (98-107); CO2 26 mmol/L (21-32); CREATININE 1.3 mg/dL (0.55-1.02); GLUCOSE,RANDOM 136 mg/dL (74-106); MAGNESIUM 1.8 mg/dL (1.8-2.4); PHOSPHOROUS 1.6 mg/dL (2.5-4.9); POTASSIUM 3.7 mmol/L (3.5-5.1); SGOT/AST 58 U/L (15-37); SGPT/ALT 20 U/L (12-78); SODIUM 140 mmol/L (136-145); TOT PROT 6.9 g/dl (6.4-8.2)
[2017-11-15] MEDS ORDERED: PT OWN MED DRAWER 7, Y5N ONE ×2 (10:27→15:22)
[2017-11-15] MEDS ORDERED: NADOLOL 20 MG TABLET (FP) ONE (10:27)
--- NOTE | 2017-11-15 10:27 | PN ---
Progress Note, Physician History of Present Illness: 56 y/o woman with a PMHx of Chronic Alcoholism, Chronic Thrombocytopenia, Liver Cirrhosis, Cocaine Abuse, GERd, Thyroid Disease, Pancreatitis. Who presents to the ED with weakness, fatigue, alcohol intoxication. Patient reports drinking 1 pint of whiskey daily. She reports falling recently, denies LOC or head trauma. on presentation --low Platelets 17, +Alcohol 323, +H/H 7.7, 22.9 FU : pt awake and blunt affect but oriented admits that she wants inpt rehab 11/12/17 Status: [place] [address] Unit Number: [id number] EXAM#: TYPE/EXAM: RESULT: [id number] CT/HEAD CT WITHOUT CONTRAST HISTORY PROVIDED: Head trauma TECHNIQUE: Sequential axial images were obtained from the base of the skull to the vertex. There is no evidence of acute intracranial hemorrhage, mass lesions or infarctions. There is a mild degree of diffuse cerebral atrophy with sulcal widening and ventricular dilatation. Hypodense changes are noted throughout the periventricular white matter consistent with chronic, small vessel ischemia. There is no evidence of fracture or acute bony abnormalities. IMPRESSION: No evidence of acute intracranial pathology. - Current Medication List Current Medications: Active Medications Chlorhexidine Gluconate (Hibiclens For Decolonization -) 1 applic TP HS [facility] Last Admin: 11/14/17 22:18 Dose: Not Given Folic Acid (Folic Acid -) 1 mg PO DAILY [facility] Last Admin: 11/14/17 10:30 Dose: 1 mg Hydroxyzine HCl (Atarax -) 25 mg PO Q8H PRN PRN Reason: FOR ITCHING Octreotide Acetate 1,200 mcg/ (Dextrose) 500 mls @ 20.83 mls/hr IVPB ASDIR [facility] PRN Reason: 50 MCG/HR Last Admin: 11/15/17 02:32 Dose: 20.83 mls/hr Ertapenem 1 gm/ Sodium (Chloride) 100 mls @ 200 mls/hr IVPB DAILY [facility] PRN Reason: Protocol Last Admin: 11/14/17 17:43 Dose: 200 mls/hr Lactulose (Cephulac (Oral Use)) 20 gm PO TID [facility] Last Admin: 11/15/17 06:57 Dose: 20 gm Levothyroxine Sodium (Synthroid -) 100 mcg PO DAILY@0700 [facility] Last Admin: 11/15/17 06:57 Dose: 100 mcg Magnesium Oxide (Mag-Ox -) 400 mg PO BID [facility] Last Admin: 11/14/17 22:26 Dose: 400 mg Metoclopramide HCl (Reglan Injection -) 10 mg IVPUSH Q8H PRN PRN Reason: NAUSEA AND/OR VOMITING Mupirocin (Bactroban Ointment (For Decolonization) -) 1 applic NS BID [facility] Stop: 11/17/17 09:59 Last Admin: 11/14/17 22:18 Dose: Not Given Nadolol (Corgard -) 40 mg PO DAILY [facility] Last Admin: 11/14/17 10:29 Dose: 40 mg Pantoprazole Sodium (Protonix -) 40 mg PO BID [facility] Last Admin: 11/14/17 22:26 Dose: 40 mg Potassium Phos/Sodium Phos (Phos-Nak Packet -) 1 packet PO TID [facility] Last Admin: 11/15/17 06:57 Dose: 1 packet Multivit/Folic Acid/Iron ( Vitamins (Sjr) -) 1 tab PO DAILY [facility] Last Admin: 11/14/17 10:30 Dose: 1 tab Rifaximin (Xifaxan -) 550 mg PO BID [facility] Last Admin: 11/14/17 22:26 Dose: 550 mg Thiamine HCl (Vitamin B1 Injection -) 200 mg IM DAILY [facility] - Objective Vital Signs: Vital Signs Temperature 99 F 11/15/17 03:00 Pulse Rate 72 11/15/17 03:00 Respiratory Rate 20 11/15/17 03:00 Blood Pressure 129/70 11/15/17 03:00 O2 Sat by Pulse Oximetry (%) 98 11/14/17 21:00 Labs: CBC, BMP 11/15/17 07:05 11/15/17 07:05 INR, PTT INR 1.52 (0.82-1.09) H 11/15/17 07:05 Fibrinogen 181.0 mg/dL (238-498) L 11/15/17 07:05 - ....Imaging Cat Scan: Report Reviewed, Image Reviewed Assessment/Plan coagulopathy/pancytopenia from underlying cirrhosis ESLD/portal HTN/ Hypersplenism./acute alcohol induced bone marrow toxicity with chronic alcohol abuse and imbalance , ? 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
[2017-11-15] MEDS: MUPIROCIN 2% TOPICAL OINTMENT FOR DECOLONIZATION NS SCH ×2 (10:29→22:11)
[2017-11-15] MEDS: ERTAPENEM SODIUM 1 GM in SODIUM CHLORIDE 100 ML IVPB SCH (10:31)
[2017-11-15] MEDS: RIFAXIMIN 550 MG TABLET (UD) PO SCH ×2 (10:31→22:12)
[2017-11-15] MEDS: FOLIC ACID 1 MG TABLET (FP) PO SCH (10:31)
[2017-11-15] MEDS: PANTOPRAZOLE 40 MG TABLET (FP) PO SCH ×2 (10:31→22:12)
[2017-11-15] MEDS: THIAMINE HCL 200 MG/2 ML VIAL IM SCH ×2 (10:32→14:36)
[2017-11-15] MEDS: NADOLOL 40 MG TABLET (FP) PO SCH (10:32)
[2017-11-15] MEDS: MAGNESIUM OXIDE 400 MG TABLET (FP) PO SCH ×2 (10:32→22:12)
[2017-11-15] MEDS: PRENATAL VITAMINS W/ FOLIC ACID TABLET (FP) PO SCH (10:32)
--- NOTE | 2017-11-15 12:03 | PN ---
Progress Note, Physician Chief Complaint: More alert and oriented eating lunch History of Present Illness: 56 y/o woman with a PMHx of Chronic Alcoholism, Chronic Thrombocytopenia, Liver Cirrhosis, Cocaine Abuse, GERd, Thyroid Disease, Pancreatitis. presented to ED with weakness, fatigue, alcohol intoxication w/u shows Decompensated Cirrhosis ESBL UTI - Current Medication List Current Medications: Active Medications Chlorhexidine Gluconate (Hibiclens For Decolonization -) 1 applic TP HS [facility] Last Admin: 11/14/17 22:18 Dose: Not Given Folic Acid (Folic Acid -) 1 mg PO DAILY [facility] Last Admin: 11/15/17 10:31 Dose: 1 mg Hydroxyzine HCl (Atarax -) 25 mg PO Q8H PRN PRN Reason: FOR ITCHING Octreotide Acetate 1,200 mcg/ (Dextrose) 500 mls @ 20.83 mls/hr IVPB [facility] PRN Reason: 50 MCG/HR Last Admin: 11/15/17 02:32 Dose: 20.83 mls/hr Ertapenem 1 gm/ Sodium (Chloride) 100 mls @ 200 mls/hr IVPB DAILY [facility] PRN Reason: Protocol Last Admin: 11/15/17 10:31 Dose: 200 mls/hr Lactulose (Cephulac (Oral Use)) 20 gm PO TID [facility] Last Admin: 11/15/17 06:57 Dose: 20 gm Levothyroxine Sodium (Synthroid -) 100 mcg PO DAILY@0700 [facility] Last Admin: 11/15/17 06:57 Dose: 100 mcg Magnesium Oxide (Mag-Ox -) 400 mg PO BID [facility] Last Admin: 11/15/17 10:32 Dose: 400 mg Metoclopramide HCl (Reglan Injection -) 10 mg IVPUSH Q8H PRN PRN Reason: NAUSEA AND/OR VOMITING Last Admin: 11/15/17 10:31 Dose: 10 mg Mupirocin (Bactroban Ointment (For Decolonization) -) 1 applic NS BID [facility] Stop: 11/17/17 09:59 Last Admin: 11/15/17 10:29 Dose: Not Given Nadolol (Corgard -) 40 mg PO DAILY [facility] Last Admin: 11/15/17 10:32 Dose: 40 mg Pantoprazole Sodium (Protonix -) 40 mg PO BID [facility] Last Admin: 11/15/17 10:31 Dose: 40 mg Potassium Phos/Sodium Phos (Phos-Nak Packet -) 1 packet PO TID [facility] Last Admin: 11/15/17 06:57 Dose: 1 packet Multivit/Folic Acid/Iron ( Vitamins (Sjr) -) 1 tab PO DAILY [facility] Last Admin: 11/15/17 10:32 Dose: 1 tab Rifaximin (Xifaxan -) 550 mg PO BID [facility] Last Admin: 11/15/17 10:31 Dose: 550 mg Thiamine HCl (Vitamin B1 Injection -) 200 mg IM DAILY [facility] Last Admin: 11/15/17 10:32 Dose: Not Given - Objective Vital Signs: Vital Signs Temperature 99 F 11/15/17 03:00 Pulse Rate 72 11/15/17 03:00 Respiratory Rate 20 11/15/17 03:00 Blood Pressure 129/70 11/15/17 03:00 O2 Sat by Pulse Oximetry (%) 98 11/14/17 21:00 Young F sick looking not in distress c/o insomnia HEENT: Mm moist, + anemia, PERRLA EOMI NECK; s/p Surgery neck is immobilized in C Collar CHEST: B/L Basal crepts CVS: s1S2 R no m/g/r ABD: No distention, non tender Bs + EXT: + edema feet AMBULATORY SERVICES REPRESENTATIVE: Alert moving extremities, non focal Labs: CBC, BMP 11/15/17 07:05 11/15/17 07:05 INR, PTT INR 1.52 (0.82-1.09) H 11/15/17 07:05 Fibrinogen 181.0 mg/dL (238-498) L 11/15/17 07:05 Problem List - Problems (1) Hepatic encephalopathy Assessment/Plan: Cirrhosis , due to ETOH abuse, improving Code(s): K72.90 - HEPATIC FAILURE, UNSPECIFIED WITHOUT COMA (2) Advanced cirrhosis of liver Assessment/Plan: Stable needs ETOH rehab Code(s): K74.60 - UNSPECIFIED CIRRHOSIS OF LIVER (3) Thrombocytopenia Assessment/Plan: Due to cirrhosis Code(s): D69.6 - THROMBOCYTOPENIA, UNSPECIFIED (4) ESBL (extended spectrum beta-lactamase) producing bacteria infection Assessment/Plan: UTI on IV abx Code(s): A49.9 - BACTERIAL INFECTION, UNSPECIFIED; Z16.12 - EXTENDED SPECTRUM BETA LACTAMASE (ESBL) RESISTANCE (5) Hypothyroid Assessment/Plan: On Levothyroxine Code(s): E03.9 - HYPOTHYROIDISM, UNSPECIFIED Qualifiers: (6) Hyperbilirubinemia Assessment/Plan: Due to ETOH induced Cirrhosis improving with treatment F/U LFTS Code(s): E80.6 - OTHER DISORDERS OF BILIRUBIN METABOLISM (7) GERD (gastroesophageal reflux disease) Assessment/Plan: On PPI Code(s): K21.9 - GASTRO-ESOPHAGEAL REFLUX DISEASE WITHOUT ESOPHAGITIS Qualifiers:
--- NOTE | 2017-11-15 12:39 | PN ---
Progress Note, Physician History of Present Illness: says she is very weak no specific complaints slow - Current Medication List Current Medications: Active Medications Chlorhexidine Gluconate (Hibiclens For Decolonization -) 1 applic TP HS [facility] Last Admin: 11/14/17 22:18 Dose: Not Given Folic Acid (Folic Acid -) 1 mg PO DAILY [facility] Last Admin: 11/15/17 10:31 Dose: 1 mg Hydroxyzine HCl (Atarax -) 25 mg PO Q8H PRN PRN Reason: FOR ITCHING Octreotide Acetate 1,200 mcg/ (Dextrose) 500 mls @ 20.83 mls/hr IVPB [facility] PRN Reason: 50 MCG/HR Last Admin: 11/15/17 02:32 Dose: 20.83 mls/hr Ertapenem 1 gm/ Sodium (Chloride) 100 mls @ 200 mls/hr IVPB DAILY [facility] PRN Reason: Protocol Last Admin: 11/15/17 10:31 Dose: 200 mls/hr Lactulose (Cephulac (Oral Use)) 20 gm PO TID [facility] Last Admin: 11/15/17 06:57 Dose: 20 gm Levothyroxine Sodium (Synthroid -) 100 mcg PO DAILY@0700 [facility] Last Admin: 11/15/17 06:57 Dose: 100 mcg Magnesium Oxide (Mag-Ox -) 400 mg PO BID [facility] Last Admin: 11/15/17 10:32 Dose: 400 mg Metoclopramide HCl (Reglan Injection -) 10 mg IVPUSH Q8H PRN PRN Reason: NAUSEA AND/OR VOMITING Last Admin: 11/15/17 10:31 Dose: 10 mg Mupirocin (Bactroban Ointment (For Decolonization) -) 1 applic NS BID [facility] Stop: 11/17/17 09:59 Last Admin: 11/15/17 10:29 Dose: Not Given Nadolol (Corgard -) 40 mg PO DAILY [facility] Last Admin: 11/15/17 10:32 Dose: 40 mg Pantoprazole Sodium (Protonix -) 40 mg PO BID [facility] Last Admin: 11/15/17 10:31 Dose: 40 mg Potassium Phos/Sodium Phos (Phos-Nak Packet -) 1 packet PO TID [facility] Last Admin: 11/15/17 06:57 Dose: 1 packet Multivit/Folic Acid/Iron ( Vitamins (Sjr) -) 1 tab PO DAILY [facility] Last Admin: 11/15/17 10:32 Dose: 1 tab Rifaximin (Xifaxan -) 550 mg PO BID [facility] Last Admin: 11/15/17 10:31 Dose: 550 mg Thiamine HCl (Vitamin B1 Injection -) 200 mg IM DAILY [facility] Last Admin: 11/15/17 10:32 Dose: Not Given - Objective Vital Signs: Vital Signs Temperature 99 F 11/15/17 03:00 Pulse Rate 72 11/15/17 03:00 Respiratory Rate 20 11/15/17 03:00 Blood Pressure 129/70 11/15/17 03:00 O2 Sat by Pulse Oximetry (%) 98 11/14/17 21:00 Constitutional: Yes: No Distress, Calm Eyes: Yes: Sclera Icterus Cardiovascular: Yes: Regular Rate and Rhythm Gastrointestinal: Yes: Normal Bowel Sounds, Soft Musculoskeletal: Yes: WNL Extremities: Yes: WNL Neurological: Yes: Alert Psychiatric: Yes: Alert Labs: CBC, BMP 11/15/17 07:05 11/15/17 07:05 INR, PTT INR 1.52 (0.82-1.09) H 11/15/17 07:05 Fibrinogen 181.0 mg/dL (238-498) L 11/15/17 07:05 Assessment/Plan Assessment/Plan (1) Alcoholic cirrhosis of liver Code(s): K70.30 - ALCOHOLIC CIRRHOSIS OF LIVER WITHOUT ASCITES Qualifiers: Ascites presence: with ascites Qualified Code(s): K70.31 - Alcoholic cirrhosis of liver with ascites (2) Pancytopenia Code(s): D61.818 - OTHER PANCYTOPENIA (3) Alcohol dependence with uncomplicated withdrawal Code(s): F10.230 - ALCOHOL DEPENDENCE WITH WITHDRAWAL, UNCOMPLICATED (4) Hypokalemia Code(s): E87.6 - HYPOKALEMIA (5) Hypomagnesemia Code(s): E83.42 - HYPOMAGNESEMIA (6) Hypophosphatemia Code(s): E83.39 - OTHER DISORDERS OF PHOSPHORUS METABOLISM (7) Splenomegaly Code(s): R16.1 - SPLENOMEGALY, NOT ELSEWHERE CLASSIFIED (8) Coagulopathy (9) Hypothyroid Code(s): E03.9 - HYPOTHYROIDISM, UNSPECIFIED Qualifiers: (10) Falling episodes Code(s): R29.6 - REPEATED FALLS (11) UTI (urinary tract infection) Code(s): N39.0 - URINARY TRACT INFECTION, SITE NOT SPECIFIED (12) Hepatic encephalopathy Code(s): K72.90 - HEPATIC FAILURE, UNSPECIFIED WITHOUT COMA plan' continue as per detox continue abx nutrition rest as per the team
[2017-11-15] MEDS ORDERED: ZOLPIDEM TARTRATE 5 MG TABLET PO ONE (22:00)
[2017-11-15] MEDS: CHLORHEXIDINE GLUCONATE 4% CLEANSER FOR DECOLONIZATION TP SCH (22:11)
--- NOTE | 2017-11-15 23:38 | PN ---
Progress Note (short form) - Note Progress Note: Patient seen and examined Denies any complaints AFVSS Cor: RSR, No murmurs, No gallops Lungs: Clear to P&A Abd: Soft, Normal bowel sounds, No organomegaly Ext:No significant edema LAbs/Meds reviewed A/P 56 y/o patient with coagulopathy/pancytopenia from underlying cirrhosis ESLD/ portal HTN/Hypersplenism./acute alcohol induced bone marrow toxicity no active bleeding counts stable monitor
[2017-11-16] MEDS: LACTULOSE 20 GM/30 ML UDC (FOR ORAL USE ONLY) PO SCH ×4 (06:42→21:00)
[2017-11-16] MEDS: NAPH,MB-DB/K PH,MBDB POWDER PACKET PO SCH ×3 (06:42→21:04)
[2017-11-16] MEDS: LEVOTHYROXINE NA 100 MCG TABLET (FP) PO SCH (06:43)
[2017-11-16 07:18] LABS: EOS % 3.4 % (0-4.5); HEMATOCRIT 28.8 % (32.4-45.2); HEMOGLOBIN 9.7 GM/dL (10.7-15.3); LYMPH % 31.3 % (8-40); MCH 32.8 pg (25.7-33.7); MCHC 33.7 g/dl (32.0-36.0); MEAN CELL VOLUME 97.3 fl (80-96); MEAN PLT VOLUME 9.3 fl (7.5-11.1); MONO % 15.5 % (3.8-10.2); NEUT % 48.8 % (42.8-82.8); RBC 2.96 M/mm3 (3.60-5.2); RDW 18.8 % (11.6-15.6); WHITE BLOOD COUNT 5.4 K/mm3 (4.0-10.0)
[2017-11-16 07:26] LABS: PLATELET COUNT 33 K/MM3 (134-434)
[2017-11-16 07:30] LABS: ANION GAP 11 (8-16); BLOOD UREA NITROGEN 13 mg/dL (7-18); CALCIUM 8.6 mg/dL (8.5-10.1); CHLORIDE 103 mmol/L (98-107); CO2 26 mmol/L (21-32); CREATININE 1.3 mg/dL (0.55-1.02); GLUCOSE,RANDOM 154 mg/dL (74-106); POTASSIUM 3.8 mmol/L (3.5-5.1); SODIUM 140 mmol/L (136-145)
[2017-11-16] MEDS ORDERED: PT OWN MED DRAWER 7, Y5N ONE (09:45)
[2017-11-16] MEDS ORDERED: NADOLOL 20 MG TABLET (FP) ONE (09:45)
[2017-11-16] MEDS: PANTOPRAZOLE 40 MG TABLET (FP) PO SCH ×2 (09:51→21:04)
[2017-11-16] MEDS: RIFAXIMIN 550 MG TABLET (UD) PO SCH ×2 (09:51→21:04)
[2017-11-16] MEDS: FOLIC ACID 1 MG TABLET (FP) PO SCH (09:51)
[2017-11-16] MEDS: MAGNESIUM OXIDE 400 MG TABLET (FP) PO SCH ×2 (09:52→21:04)
[2017-11-16] MEDS: MUPIROCIN 2% TOPICAL OINTMENT FOR DECOLONIZATION NS SCH ×2 (09:52→21:00)
[2017-11-16] MEDS: ERTAPENEM SODIUM 1 GM in SODIUM CHLORIDE 100 ML IVPB SCH (09:52)
[2017-11-16] MEDS: PRENATAL VITAMINS W/ FOLIC ACID TABLET (FP) PO SCH (09:52)
[2017-11-16] MEDS: NADOLOL 40 MG TABLET (FP) PO SCH (09:52)
[2017-11-16] MEDS: THIAMINE HCL 200 MG/2 ML VIAL IM SCH (09:53)
--- NOTE | 2017-11-16 12:07 | PN ---
Progress Note, Physician History of Present Illness: dirrhoea probably due to lactulose otherwise stable - Current Medication List Current Medications: Active Medications Chlorhexidine Gluconate (Hibiclens For Decolonization -) 1 applic TP HS [facility] Last Admin: 11/15/17 22:11 Dose: Not Given Folic Acid (Folic Acid -) 1 mg PO DAILY [facility] Last Admin: 11/16/17 09:51 Dose: 1 mg Hydroxyzine HCl (Atarax -) 25 mg PO Q8H PRN PRN Reason: FOR ITCHING Octreotide Acetate 1,200 mcg/ (Dextrose) 500 mls @ 20.83 mls/hr IVPB [facility] PRN Reason: 50 MCG/HR Last Admin: 11/15/17 17:07 Dose: Not Given Ertapenem 1 gm/ Sodium (Chloride) 100 mls @ 200 mls/hr IVPB DAILY [facility] PRN Reason: Protocol Last Admin: 11/16/17 09:52 Dose: 200 mls/hr Lactulose (Cephulac (Oral Use)) 20 gm PO TID [facility] Last Admin: 11/16/17 06:47 Dose: 20 gm Levothyroxine Sodium (Synthroid -) 100 mcg PO DAILY@0700 [facility] Last Admin: 11/16/17 06:43 Dose: 100 mcg Magnesium Oxide (Mag-Ox -) 400 mg PO BID [facility] Last Admin: 11/16/17 09:52 Dose: 400 mg Metoclopramide HCl (Reglan Injection -) 10 mg IVPUSH Q8H PRN PRN Reason: NAUSEA AND/OR VOMITING Last Admin: 11/15/17 10:31 Dose: 10 mg Mupirocin (Bactroban Ointment (For Decolonization) -) 1 applic NS BID [facility] Stop: 11/17/17 09:59 Last Admin: 11/16/17 09:52 Dose: Not Given Nadolol (Corgard -) 40 mg PO DAILY [facility] Last Admin: 11/16/17 09:52 Dose: 40 mg Pantoprazole Sodium (Protonix -) 40 mg PO BID [facility] Last Admin: 11/16/17 09:51 Dose: 40 mg Potassium Phos/Sodium Phos (Phos-Nak Packet -) 1 packet PO TID [facility] Last Admin: 11/16/17 06:42 Dose: 1 packet Multivit/Folic Acid/Iron ( Vitamins (Sjr) -) 1 tab PO DAILY [facility] Last Admin: 11/16/17 09:52 Dose: 1 tab Rifaximin (Xifaxan -) 550 mg PO BID [facility] Last Admin: 11/16/17 09:51 Dose: 550 mg Thiamine HCl (Vitamin B1 Injection -) 200 mg IM DAILY [facility] Last Admin: 11/16/17 09:53 Dose: 200 mg - Objective Vital Signs: Vital Signs Temperature 98.4 F 11/16/17 10:00 Pulse Rate 75 11/16/17 10:00 Respiratory Rate 12 11/16/17 10:00 Blood Pressure 142/76 11/16/17 10:00 O2 Sat by Pulse Oximetry (%) 97 11/16/17 09:00 Constitutional: Yes: No Distress, Calm Cardiovascular: Yes: Regular Rate and Rhythm Respiratory: Yes: Regular, CTA Bilaterally Gastrointestinal: Yes: Normal Bowel Sounds, Soft Musculoskeletal: Yes: WNL Extremities: Yes: WNL Neurological: Yes: Alert Psychiatric: Yes: Alert Labs: CBC, BMP 11/16/17 06:00 11/16/17 06:00 INR, PTT INR 1.52 (0.82-1.09) H 11/15/17 07:05 Fibrinogen 181.0 mg/dL (238-498) L 11/15/17 07:05 Assessment/Plan Assessment/Plan (1) Alcoholic cirrhosis of liver Code(s): K70.30 - ALCOHOLIC CIRRHOSIS OF LIVER WITHOUT ASCITES Qualifiers: Ascites presence: with ascites Qualified Code(s): K70.31 - Alcoholic cirrhosis of liver with ascites (2) Pancytopenia Code(s): D61.818 - OTHER PANCYTOPENIA (3) Alcohol dependence with uncomplicated withdrawal Code(s): F10.230 - ALCOHOL DEPENDENCE WITH WITHDRAWAL, UNCOMPLICATED (4) Hypokalemia Code(s): E87.6 - HYPOKALEMIA (5) Hypomagnesemia Code(s): E83.42 - HYPOMAGNESEMIA (6) Hypophosphatemia Code(s): E83.39 - OTHER DISORDERS OF PHOSPHORUS METABOLISM (7) Splenomegaly Code(s): R16.1 - SPLENOMEGALY, NOT ELSEWHERE CLASSIFIED (8) Coagulopathy (9) Hypothyroid Code(s): E03.9 - HYPOTHYROIDISM, UNSPECIFIED Qualifiers: (10) Falling episodes Code(s): R29.6 - REPEATED FALLS (11) UTI (urinary tract infection) Code(s): N39.0 - URINARY TRACT INFECTION, SITE NOT SPECIFIED (12) Hepatic encephalopathy Code(s): K72.90 - HEPATIC FAILURE, UNSPECIFIED WITHOUT COMA plan' continue as per detox continue abx nutrition rest as per the team monitor [email or web address]
[2017-11-16] MEDS: OCTREOTIDE ACETATE 1,200 MCG in DEXTROSE 5%-WATER - 488 ML IVPB SCH (14:37)
--- NOTE | 2017-11-16 15:58 | PN ---
Progress Note, Physician Chief Complaint: More alert and oriented History of Present Illness: 56 y/o woman with a PMHx of Chronic Alcoholism, Chronic Thrombocytopenia, Liver Cirrhosis, Cocaine Abuse, GERd, Thyroid Disease, Pancreatitis. presented to ED with weakness, fatigue, alcohol intoxication w/u shows Decompensated Cirrhosis ESBL UTI - Current Medication List Current Medications: Active Medications Chlorhexidine Gluconate (Hibiclens For Decolonization -) 1 applic TP HS [facility] Last Admin: 11/15/17 22:11 Dose: Not Given Folic Acid (Folic Acid -) 1 mg PO DAILY [facility] Last Admin: 11/16/17 09:51 Dose: 1 mg Hydroxyzine HCl (Atarax -) 25 mg PO Q8H PRN PRN Reason: FOR ITCHING Octreotide Acetate 1,200 mcg/ (Dextrose) 500 mls @ 20.83 mls/hr IVPB [facility] PRN Reason: 50 MCG/HR Last Admin: 11/16/17 14:37 Dose: Not Given Ertapenem 1 gm/ Sodium (Chloride) 100 mls @ 200 mls/hr IVPB DAILY [facility] PRN Reason: Protocol Last Admin: 11/16/17 09:52 Dose: 200 mls/hr Lactulose (Cephulac (Oral Use)) 20 gm PO TID [facility] Last Admin: 11/16/17 14:37 Dose: 20 gm Levothyroxine Sodium (Synthroid -) 100 mcg PO DAILY@0700 [facility] Last Admin: 11/16/17 06:43 Dose: 100 mcg Magnesium Oxide (Mag-Ox -) 400 mg PO BID [facility] Last Admin: 11/16/17 09:52 Dose: 400 mg Metoclopramide HCl (Reglan Injection -) 10 mg IVPUSH Q8H PRN PRN Reason: NAUSEA AND/OR VOMITING Last Admin: 11/15/17 10:31 Dose: 10 mg Mupirocin (Bactroban Ointment (For Decolonization) -) 1 applic NS BID [facility] Stop: 11/17/17 09:59 Last Admin: 11/16/17 09:52 Dose: Not Given Nadolol (Corgard -) 40 mg PO DAILY [facility] Last Admin: 11/16/17 09:52 Dose: 40 mg Pantoprazole Sodium (Protonix -) 40 mg PO BID [facility] Last Admin: 11/16/17 09:51 Dose: 40 mg Potassium Phos/Sodium Phos (Phos-Nak Packet -) 1 packet PO TID [facility] Last Admin: 11/16/17 14:37 Dose: 1 packet Multivit/Folic Acid/Iron ( Vitamins (Sjr) -) 1 tab PO DAILY [facility] Last Admin: 11/16/17 09:52 Dose: 1 tab Rifaximin (Xifaxan -) 550 mg PO BID [facility] Last Admin: 11/16/17 09:51 Dose: 550 mg Thiamine HCl (Vitamin B1 Injection -) 200 mg IM DAILY [facility] Last Admin: 11/16/17 09:53 Dose: 200 mg - Objective Vital Signs: Vital Signs Temperature 98.7 F 11/16/17 14:00 Pulse Rate 75 11/16/17 14:17 Respiratory Rate 20 11/16/17 14:00 Blood Pressure 128/74 11/16/17 14:17 O2 Sat by Pulse Oximetry (%) 97 11/16/17 09:00 Young F sick looking not in distress c/o insomnia HEENT: Mm moist, + anemia, PERRLA EOMI NECK; s/p Surgery neck is immobilized in C Collar CHEST: B/L Basal crepts CVS: s1S2 R no m/g/r ABD: No distention, non tender Bs + EXT: + edema feet [employer]ER: Alert moving extremities, non focal Labs: CBC, BMP 11/16/17 06:00 11/16/17 06:00 INR, PTT INR 1.52 (0.82-1.09) H 11/15/17 07:05 Fibrinogen 181.0 mg/dL (238-498) L 11/15/17 07:05 Problem List - Problems (1) Hepatic encephalopathy Assessment/Plan: Cirrhosis , due to ETOH abuse, improving Code(s): K72.90 - HEPATIC FAILURE, UNSPECIFIED WITHOUT COMA (2) Advanced cirrhosis of liver Assessment/Plan: Stable needs ETOH rehab Code(s): K74.60 - UNSPECIFIED CIRRHOSIS OF LIVER (3) Thrombocytopenia Assessment/Plan: Due to cirrhosis Code(s): D69.6 - THROMBOCYTOPENIA, UNSPECIFIED (4) ESBL (extended spectrum beta-lactamase) producing bacteria infection Assessment/Plan: UTI on IV abx (5) Hypothyroid Assessment/Plan: On Levothyroxine Code(s): E03.9 - HYPOTHYROIDISM, UNSPECIFIED Qualifiers: (6) Hyperbilirubinemia Assessment/Plan: Due to ETOH induced Cirrhosis improving with treatment F/U LFTS Code(s): E80.6 - OTHER DISORDERS OF BILIRUBIN METABOLISM
[2017-11-16] MEDS: CHLORHEXIDINE GLUCONATE 4% CLEANSER FOR DECOLONIZATION TP SCH (21:01)
[2017-11-16] MEDS: TEMAZEPAM 15 MG CAPSULE PO SCH (21:04)
[2017-11-17] MEDS: LEVOTHYROXINE NA 100 MCG TABLET (FP) PO SCH (06:30)
[2017-11-17] MEDS: LACTULOSE 20 GM/30 ML UDC (FOR ORAL USE ONLY) PO SCH ×3 (06:30→22:07)
[2017-11-17] MEDS: NAPH,MB-DB/K PH,MBDB POWDER PACKET PO SCH ×3 (06:30→22:08)
[2017-11-17 07:01] LABS: BASO % 0.7 % (0-2.0); EOS % 2.4 % (0-4.5); HEMATOCRIT 27.6 % (32.4-45.2); HEMOGLOBIN 9.3 GM/dL (10.7-15.3); LYMPH % 34.8 % (8-40); MCH 33.2 pg (25.7-33.7); MCHC 33.9 g/dl (32.0-36.0); MEAN PLT VOLUME 9.4 fl (7.5-11.1); MONO % 15.3 % (3.8-10.2); NEUT % 46.8 % (42.8-82.8); RBC 2.81 M/mm3 (3.60-5.2); RDW 18.7 % (11.6-15.6); WHITE BLOOD COUNT 5.1 K/mm3 (4.0-10.0)
[2017-11-17 07:29] LABS: ANION GAP 9 (8-16); BLOOD UREA NITROGEN 12 mg/dL (7-18); CALCIUM 8.6 mg/dL (8.5-10.1); CHLORIDE 104 mmol/L (98-107); CO2 26 mmol/L (21-32); CREATININE 1.2 mg/dL (0.55-1.02); GLUCOSE,RANDOM 185 mg/dL (74-106); POTASSIUM 3.7 mmol/L (3.5-5.1); SODIUM 139 mmol/L (136-145)
[2017-11-17 07:31] LABS: PLATELET COUNT 36 K/MM3 (134-434)
--- NOTE | 2017-11-17 10:31 | PN ---
Progress Note, Physician History of Present Illness: c/o of weakness inability to get up says she feels disoriented patient c/ of dry eyes - Current Medication List Current Medications: Active Medications Chlorhexidine Gluconate (Hibiclens For Decolonization -) 1 applic TP HS [facility] Last Admin: 11/16/17 21:01 Dose: Not Given Folic Acid (Folic Acid -) 1 mg PO DAILY [facility] Last Admin: 11/16/17 09:51 Dose: 1 mg Hydroxyzine HCl (Atarax -) 25 mg PO Q8H PRN PRN Reason: FOR ITCHING Ertapenem 1 gm/ Sodium (Chloride) 100 mls @ 200 mls/hr IVPB DAILY [facility] PRN Reason: Protocol Last Admin: 11/16/17 09:52 Dose: 200 mls/hr Lactulose (Cephulac (Oral Use)) 20 gm PO TID [facility] Last Admin: 11/17/17 06:30 Dose: 20 gm Levothyroxine Sodium (Synthroid -) 100 mcg PO DAILY@0700 [facility] Last Admin: 11/17/17 06:30 Dose: 100 mcg Magnesium Oxide (Mag-Ox -) 400 mg PO BID [facility] Last Admin: 11/16/17 21:04 Dose: 400 mg Metoclopramide HCl (Reglan Injection -) 10 mg IVPUSH Q8H PRN PRN Reason: NAUSEA AND/OR VOMITING Last Admin: 11/15/17 10:31 Dose: 10 mg Nadolol (Corgard -) 40 mg PO DAILY [facility] Last Admin: 11/16/17 09:52 Dose: 40 mg Pantoprazole Sodium (Protonix -) 40 mg PO BID [facility] Last Admin: 11/16/17 21:04 Dose: 40 mg Potassium Phos/Sodium Phos (Phos-Nak Packet -) 1 packet PO TID [facility] Last Admin: 11/17/17 06:30 Dose: 1 packet Multivit/Folic Acid/Iron ( Vitamins (Sjr) -) 1 tab PO DAILY [facility] Last Admin: 11/16/17 09:52 Dose: 1 tab Rifaximin (Xifaxan -) 550 mg PO BID [facility] Last Admin: 11/16/17 21:04 Dose: 550 mg Temazepam (Restoril -) 15 mg PO HS [facility] Last Admin: 11/16/17 21:04 Dose: 15 mg Thiamine HCl (Vitamin B1 Injection -) 200 mg IM DAILY [facility] Last Admin: 11/16/17 09:53 Dose: 200 mg - Objective Vital Signs: Vital Signs Temperature 98.9 F 11/17/17 06:00 Pulse Rate 71 11/17/17 06:00 Respiratory Rate 20 11/17/17 06:00 Blood Pressure 113/56 11/17/17 06:00 O2 Sat by Pulse Oximetry (%) 97 11/16/17 21:00 Constitutional: Yes: No Distress, Calm Eyes: Yes: Sclera Icterus Cardiovascular: Yes: Regular Rate and Rhythm Respiratory: Yes: Regular, CTA Bilaterally Gastrointestinal: Yes: Normal Bowel Sounds, Soft Musculoskeletal: Yes: WNL Extremities: Yes: WNL Neurological: Yes: Alert, Other (says she is dis oriented) Psychiatric: Yes: Alert Labs: CBC, BMP 11/17/17 06:00 11/17/17 06:00 INR, PTT INR 1.52 (0.82-1.09) H 11/15/17 07:05 Fibrinogen 181.0 mg/dL (238-498) L 11/15/17 07:05 Assessment/Plan Assessment/Plan (1) Alcoholic cirrhosis of liver Code(s): K70.30 - ALCOHOLIC CIRRHOSIS OF LIVER WITHOUT ASCITES Qualifiers: Ascites presence: with ascites Qualified Code(s): K70.31 - Alcoholic cirrhosis of liver with ascites (2) Pancytopenia Code(s): D61.818 - OTHER PANCYTOPENIA (3) Alcohol dependence with uncomplicated withdrawal Code(s): F10.230 - ALCOHOL DEPENDENCE WITH WITHDRAWAL, UNCOMPLICATED (4) Hypokalemia Code(s): E87.6 - HYPOKALEMIA (5) Hypomagnesemia Code(s): E83.42 - HYPOMAGNESEMIA (6) Hypophosphatemia Code(s): E83.39 - OTHER DISORDERS OF PHOSPHORUS METABOLISM (7) Splenomegaly Code(s): R16.1 - SPLENOMEGALY, NOT ELSEWHERE CLASSIFIED (8) Coagulopathy (9) Hypothyroid Code(s): E03.9 - HYPOTHYROIDISM, UNSPECIFIED Qualifiers: (10) Falling episodes Code(s): R29.6 - REPEATED FALLS (11) UTI (urinary tract infection) Code(s): N39.0 - URINARY TRACT INFECTION, SITE NOT SPECIFIED (12) Hepatic encephalopathy Code(s): K72.90 - HEPATIC FAILURE, UNSPECIFIED WITHOUT COMA plan' continue as per detox continue abx nutrition rest as per the team
[2017-11-17 10:43] LABS: MAGNESIUM 1.6 mg/dL (1.8-2.4); PHOSPHOROUS 3.8 mg/dL (2.5-4.9)
[2017-11-17] MEDS ORDERED: NADOLOL 20 MG TABLET (FP) ONE (10:44)
[2017-11-17] MEDS: MAGNESIUM OXIDE 400 MG TABLET (FP) PO SCH ×2 (10:50→22:08)
[2017-11-17] MEDS: PANTOPRAZOLE 40 MG TABLET (FP) PO SCH ×2 (10:50→22:07)
[2017-11-17] MEDS: FOLIC ACID 1 MG TABLET (FP) PO SCH (10:50)
[2017-11-17] MEDS: RIFAXIMIN 550 MG TABLET (UD) PO SCH ×2 (10:50→22:07)
[2017-11-17] MEDS: NADOLOL 40 MG TABLET (FP) PO SCH (10:51)
[2017-11-17] MEDS: THIAMINE HCL 200 MG/2 ML VIAL IM SCH (10:52)
[2017-11-17] MEDS ORDERED: PT OWN MED DRAWER 7, Y5N ONE (10:53)
[2017-11-17] MEDS: ERTAPENEM SODIUM 1 GM in SODIUM CHLORIDE 100 ML IVPB SCH (10:54)
[2017-11-17] MEDS: PRENATAL VITAMINS W/ FOLIC ACID TABLET (FP) PO SCH (10:54)
[2017-11-17] MEDS ORDERED: MAGNESIUM SULF 50% (8.12 MEQ/2 ML-1 GM VIAL) IVPB ONE (12:46)
[2017-11-17] MEDS ORDERED: ARTIFICIAL TEARS (POLYVINYL ALCOHOL 1.4%) OPTH DROPS OU PRN (12:46)
[2017-11-17] MEDS ORDERED: POTASSIUM CHLORIDE TABS 20 MEQ TABLET.ER (FP) PO ONE (13:15)
--- NOTE | 2017-11-17 13:15 | PN ---
Progress Note, Physician History of Present Illness: No events. No stigmata of ongoing gastrointestinal blood loss. Awake, alert, oriented, however c/o feeling disoriented and confused at night. C/o feeling weak. Not in pain. unincteric. +tremors. - Current Medication List Current Medications: Active Medications Artificial Tears (Artificial Tears) 1 drop OU BID PRN PRN Reason: DRY EYES Chlorhexidine Gluconate (Hibiclens For Decolonization -) 1 applic TP HS [facility] Last Admin: 11/16/17 21:01 Dose: Not Given Folic Acid (Folic Acid -) 1 mg PO DAILY [facility] Last Admin: 11/17/17 10:50 Dose: 1 mg Hydroxyzine HCl (Atarax -) 25 mg PO Q8H PRN PRN Reason: FOR ITCHING Ertapenem 1 gm/ Sodium (Chloride) 100 mls @ 200 mls/hr IVPB DAILY [facility] PRN Reason: Protocol Last Admin: 11/17/17 10:54 Dose: 200 mls/hr Magnesium Sulfate (Magnesium Sulf 2 G/50 Ml Bag) 2 gm in 50 mls @ 50 mls/hr IVPB ONCE ONE Stop: 11/17/17 14:29 Lactulose (Cephulac (Oral Use)) 20 gm PO TID [facility] Last Admin: 11/17/17 06:30 Dose: 20 gm Levothyroxine Sodium (Synthroid -) 100 mcg PO DAILY@0700 [facility] Last Admin: 11/17/17 06:30 Dose: 100 mcg Magnesium Oxide (Mag-Ox -) 400 mg PO BID [facility] Last Admin: 11/17/17 10:50 Dose: 400 mg Metoclopramide HCl (Reglan Injection -) 10 mg IVPUSH Q8H PRN PRN Reason: NAUSEA AND/OR VOMITING Last Admin: 11/15/17 10:31 Dose: 10 mg Nadolol (Corgard -) 40 mg PO DAILY [facility] Last Admin: 11/17/17 10:51 Dose: 40 mg Pantoprazole Sodium (Protonix -) 40 mg PO BID [facility] Last Admin: 11/17/17 10:50 Dose: 40 mg Potassium Chloride (K-Dur -) 40 meq PO ONCE ONE Stop: 11/17/17 13:16 Potassium Phos/Sodium Phos (Phos-Nak Packet -) 1 packet PO TID [facility] Last Admin: 11/17/17 06:30 Dose: 1 packet Multivit/Folic Acid/Iron ( Vitamins (Sjr) -) 1 tab PO DAILY [facility] Last Admin: 11/17/17 10:54 Dose: 1 tab Rifaximin (Xifaxan -) 550 mg PO BID [facility] Last Admin: 11/17/17 10:50 Dose: 550 mg Temazepam (Restoril -) 15 mg PO HS [facility] Last Admin: 11/16/17 21:04 Dose: 15 mg Thiamine HCl (Vitamin B1 Injection -) 200 mg IM DAILY [facility] Last Admin: 11/17/17 10:52 Dose: 200 mg - Objective Vital Signs: Vital Signs Temperature 98.8 F 11/17/17 10:00 Pulse Rate 97 H 11/17/17 10:00 Respiratory Rate 18 11/17/17 10:00 Blood Pressure 120/78 11/17/17 10:00 O2 Sat by Pulse Oximetry (%) 97 11/16/17 21:00 Constitutional: Yes: No Distress, Calm Eyes: No: Sclera Icterus HENT: Yes: Atraumatic Neck: Yes: Supple Cardiovascular: No: Bradycardia, Tachycardia Respiratory: Yes: Regular Gastrointestinal: Yes: Soft. No: Ascites, Distention, Melena, Rectal Bleeding, Tenderness, Vomiting Neurological: Yes: Alert, Asterixis, Confusion, Tremors Labs: CBC, BMP 11/17/17 06:00 11/17/17 06:00 INR, PTT INR 1.52 (0.82-1.09) H 11/15/17 07:05 Fibrinogen 181.0 mg/dL (238-498) L 11/15/17 07:05 Laboratory Last Values WBC 5.1 K/mm3 (4.0-10.0) 11/17/17 06:00 RBC 2.81 M/mm3 (3.60-5.2) L 11/17/17 06:00 Hgb 9.3 GM/dL (10.7-15.3) L 11/17/17 06:00 Hct 27.6 % (32.4-45.2) L 11/17/17 06:00 MCV 98.0 fl (80-96) H 11/17/17 06:00 MCH 33.2 pg (25.7-33.7) 11/17/17 06:00 MCHC 33.9 g/dl (32.0-36.0) 11/17/17 06:00 RDW 18.7 % (11.6-15.6) H 11/17/17 06:00 Plt Count 36 K/MM3 (134-434) L* 11/17/17 06:00 MPV 9.4 fl (7.5-11.1) 11/17/17 06:00 Neutrophils % 46.8 % (42.8-82.8) 11/17/17 06:00 Neutrophils % (Manual) 61.9 % (42.8-82.8) 11/14/17 06:30 Band Neutrophils % 1.0 % 11/14/17 06:30 Lymphocytes % 34.8 % (8-40) 11/17/17 06:00 Lymphocytes % (Manual) 25.7 % (8-40) D 11/14/17 06:30 Monocytes % 15.3 % (3.8-10.2) H 11/17/17 06:00 Monocytes % (Manual) 10 % (3.8-10.2) D 11/14/17 06:30 Eosinophils % 2.4 % (0-4.5) 11/17/17 06:00 Eosinophils % (Manual) 0.0 % (0-4.5) 11/14/17 06:30 Basophils % 0.7 % (0-2.0) 11/17/17 06:00 Basophils % (Manual) 0.0 % (0-2.0) 11/14/17 06:30 Myelocytes % (Man) 0 % (0-2) 11/14/17 06:30 Promyelocytes % (Man) 0 % (0-2) 11/14/17 06:30 Blast Cells % (Manual) 0 % (0-0) 11/14/17 06:30 Nucleated RBC % 0 % (0-0) 11/14/17 06:30 Metamyelocytes 2 % (0-2) D 11/14/17 06:30 Hypochromia 0 11/14/17 06:30 Platelet Estimate Decreased 11/14/17 06:30 Polychromasia 0 11/14/17 06:30 Poikilocytosis 0 11/12/17 06:05 Anisocytosis 1+ 11/14/17 06:30 Microcytosis 1+ 11/14/17 06:30 PT with INR 17.20 SEC (9.98-11.88) H 11/15/17 07:05 INR 1.52 (0.82-1.09) H 11/15/17 07:05 PTT (Actin FS) 31.8 SECONDS (26.9-34.4) 11/15/17 07:05 Fibrinogen 181.0 mg/dL (238-498) L 11/15/17 07:05 Sodium 139 mmol/L (136-145) 11/17/17 06:00 Potassium 3.7 mmol/L (3.5-5.1) 11/17/17 06:00 Chloride 104 mmol/L (98-107) 11/17/17 06:00 Carbon Dioxide 26 mmol/L (21-32) 11/17/17 06:00 Anion Gap 9 (8-16) 11/17/17 06:00 BUN 12 mg/dL (7-18) 11/17/17 06:00 Creatinine 1.2 mg/dL (0.55-1.02) H 11/17/17 06:00 Creat Clearance w eGFR 42.68 (>60) 11/14/17 06:30 Random Glucose 185 mg/dL (74-106) H 11/17/17 06:00 Calcium 8.6 mg/dL (8.5-10.1) 11/17/17 06:00 Phosphorus 3.8 mg/dL (2.5-4.9) 11/17/17 10:17 Magnesium 1.6 mg/dL (1.8-2.4) L 11/17/17 10:17 Iron 41 ug/dL (27-159) 11/12/17 03:00 TIBC 342 ug/dL (250-450) 11/12/17 03:00 Iron Saturation 12 % (15-55) L 11/12/17 03:00 Ferritin 66.514 ng/ml (6.9-282.5) 11/12/17 03:00 Total Bilirubin 3.7 mg/dL (0.2-1.0) H D 11/15/17 07:05 Direct Bilirubin 2.4 mg/dL (0.0-0.2) H 11/15/17 07:05 AST 58 U/L (15-37) H 11/15/17 07:05 ALT 20 U/L (12-78) 11/15/17 07:05 Alkaline Phosphatase 158 U/L (45-117) H 11/15/17 07:05 Ammonia 54.58 umol/L (11-32) H 11/17/17 10:17 Creatine Kinase 313 IU/L (26-192) H 11/12/17 18:00 Creatine Kinase Index 0.7 % (0.0-5.0) 11/12/17 18:00 CK-MB (CK-2) 2.349 ng/mL (0.5-3.6) 11/12/17 18:00 Troponin I 0.06 ng/ml (0.00-0.05) H 11/13/17 05:32 B-Natriuretic Peptide 22.95 pg/ml (5-125) 11/11/17 20:26 Total Protein 6.9 g/dl (6.4-8.2) 11/15/17 07:05 Albumin 2.8 g/dl (3.4-5.0) L 11/15/17 07:05 Vitamin B12 934 pg/ml (180-914) H 11/15/17 11:45 TSH 0.99 uIU/ml (0.358-3.74) 11/12/17 06:05 Urine Color Yellow 11/11/17 23:49 Urine Appearance Clear 11/11/17 23:49 Urine pH 7.0 (5.0-8.0) 11/11/17 23:49 Ur Specific [place] 1.004 (1.001-1.035) 11/11/17 23:49 Urine Protein Negative (NEGATIVE) 11/11/17 23:49 Urine Glucose (UA) Negative (NEGATIVE) 11/11/17 23:49 Urine Ketones Trace (NEGATIVE) H 11/11/17 23:49 Urine Blood 1+ (NEGATIVE) H 11/11/17 23:49 Urine Nitrite Negative (NEGATIVE) 11/11/17 23:49 Urine Bilirubin Negative (<2.0 mg/dL) 11/11/17 23:49 Urine Urobilinogen 4.0 e.u/dl mg/dL (0.2-1.0) H 11/11/17 23:49 Ur Leukocyte Esterase 1+ (NEGATIVE) H 11/11/17 23:49 Urine WBC (Auto) 12 /hpf (3-5) 11/11/17 23:49 Urine RBC (Auto) 1 /hpf (0-3) 11/11/17 23:49 Ur Epithelial Cells Rare /HPF (FEW) 11/11/17 23:49 Urine Bacteria Many /hpf (NONE SEEN) 11/11/17 23:49 Stool Occult Blood Negative (NEGATIVE) 11/12/17 09:23 Opiates Screen Negative ng/ml (ZGOQPI=532) 11/12/17 08:30 Methadone Screen Negative ng/ml (DUUCGJ=045) 11/12/17 08:30 Barbiturate Screen Negative ng/ml (NZCRNU=264) 11/12/17 08:30 Phencyclidine Screen Negative ng/ml (CUTOFF=25) 11/12/17 08:30 Ur Amphetamines Screen Negative ng/ml (FWXJCL=906) 11/12/17 08:30 MDMA (Ecstasy) Screen Negative ng/ml (UUOQGF=112) 11/12/17 08:30 Benzodiazepines Screen Negative ng/ml (GNZLRF=636) 11/12/17 08:30 Cocaine Screen Negative ng/ml (JIHXSJ=142) 11/12/17 08:30 U Marijuana (THC) Screen Negative ng/ml (CUTOFF=50) 11/12/17 08:30 Alcohol, Quantitative 322.36 mg/dL (0.0-5.0) H* 11/11/17 22:56 Hep A IgM Ab Confirm Negative (Negative) 11/12/17 06:05 Hepatitis A Ab Total Positive (Negative) H 11/12/17 06:05 Hep Bs Antigen Negative (Negative) 11/12/17 06:05 Hep Bs Antibody Reactive (.) 11/12/17 06:05 Hep B Core Total Ab Negative (Negative) 11/12/17 06:05 Blood Type O NEGATIVE 11/11/17 23:43 Antibody Screen Negative 11/11/17 23:43 Crossmatch See Detail 11/11/17 23:43 Problem List - Problems (1) Acute alcohol intoxication Code(s): F10.929 - ALCOHOL USE, UNSPECIFIED WITH INTOXICATION, UNSPECIFIED (2) Thrombocytopenia Code(s): D69.6 - THROMBOCYTOPENIA, UNSPECIFIED (3) Advanced cirrhosis of liver Code(s): K74.60 - UNSPECIFIED CIRRHOSIS OF LIVER (4) Alcoholic cirrhosis of liver Code(s): K70.30 - ALCOHOLIC CIRRHOSIS OF LIVER WITHOUT ASCITES Qualifiers: Ascites presence: with ascites Qualified Code(s): K70.31 - Alcoholic cirrhosis of liver with ascites Assessment/Plan Agree with rifaximine, PPI, nadolol. Titrate lactulose to 4 bms/day. Recommend stopping Reglan and minimizing, or avoiding sedatives.
[2017-11-17] MEDS ORDERED: MAGNESIUM SULFATE IN WATER 2 GM/50 ML IVPB IVPB ONE (13:30)
--- NOTE | 2017-11-17 16:09 | PN ---
Progress Note, Physician Chief Complaint: Pt lying in bed in no acute distress. reports she is forgetting things. Denies any chest pain, n/v/d, unilateral weakness. - Current Medication List Current Medications: Active Medications Artificial Tears (Artificial Tears) 1 drop OU BID PRN PRN Reason: DRY EYES Chlorhexidine Gluconate (Hibiclens For Decolonization -) 1 applic TP [facility] Last Admin: 11/16/17 21:01 Dose: Not Given Folic Acid (Folic Acid -) 1 mg PO DAILY [facility] Last Admin: 11/17/17 10:50 Dose: 1 mg Hydroxyzine HCl (Atarax -) 25 mg PO Q8H PRN PRN Reason: FOR ITCHING Ertapenem 1 gm/ Sodium (Chloride) 100 mls @ 200 mls/hr IVPB DAILY [facility] PRN Reason: Protocol Last Admin: 11/17/17 10:54 Dose: 200 mls/hr Lactulose (Cephulac (Oral Use)) 20 gm PO TID [facility] Last Admin: 11/17/17 14:43 Dose: 20 gm Levothyroxine Sodium (Synthroid -) 100 mcg PO DAILY@0700 [facility] Last Admin: 11/17/17 06:30 Dose: 100 mcg Magnesium Oxide (Mag-Ox -) 400 mg PO BID [facility] Last Admin: 11/17/17 10:50 Dose: 400 mg Metoclopramide HCl (Reglan Injection -) 10 mg IVPUSH Q8H PRN PRN Reason: NAUSEA AND/OR VOMITING Last Admin: 11/15/17 10:31 Dose: 10 mg Nadolol (Corgard -) 40 mg PO DAILY [facility] Last Admin: 11/17/17 10:51 Dose: 40 mg Pantoprazole Sodium (Protonix -) 40 mg PO BID [facility] Last Admin: 11/17/17 10:50 Dose: 40 mg Potassium Phos/Sodium Phos (Phos-Nak Packet -) 1 packet PO TID [facility] Last Admin: 11/17/17 14:43 Dose: 1 packet Multivit/Folic Acid/Iron ( Vitamins (Sjr) -) 1 tab PO DAILY [facility] Last Admin: 11/17/17 10:54 Dose: 1 tab Rifaximin (Xifaxan -) 550 mg PO BID [facility] Last Admin: 11/17/17 10:50 Dose: 550 mg Temazepam (Restoril -) 15 mg PO HS [facility] Last Admin: 11/16/17 21:04 Dose: 15 mg Thiamine HCl (Vitamin B1 -) 100 mg PO HS [facility] - Objective Vital Signs: Vital Signs Temperature 98.8 F 11/17/17 10:00 Pulse Rate 97 H 11/17/17 10:00 Respiratory Rate 18 11/17/17 10:00 Blood Pressure 120/78 11/17/17 10:00 O2 Sat by Pulse Oximetry (%) 97 11/16/17 21:00 Constitutional: Yes: Well Nourished, No Distress Eyes: Yes: Sclera Icterus Cardiovascular: Yes: WNL, Regular Rate and Rhythm Respiratory: Yes: WNL, Regular, CTA Bilaterally. No: Accessory Muscle Use, On Nasal O2, Rales, SOB Gastrointestinal: Yes: WNL, Normal Bowel Sounds, Soft. No: Distention, Tenderness Genitourinary: Yes: WNL Edema: No Neurological: Yes: WNL, Alert, Oriented Psychiatric: Yes: WNL, Alert, Oriented Labs: CBC, BMP 11/17/17 06:00 11/17/17 06:00 INR, PTT INR 1.52 (0.82-1.09) H 11/15/17 07:05 Fibrinogen 181.0 mg/dL (238-498) L 11/15/17 07:05 Problem List - Problems (1) Alcoholic cirrhosis of liver Code(s): K70.30 - ALCOHOLIC CIRRHOSIS OF LIVER WITHOUT ASCITES Qualifiers: Ascites presence: with ascites Qualified Code(s): K70.31 - Alcoholic cirrhosis of liver with ascites (2) Pancytopenia Code(s): D61.818 - OTHER PANCYTOPENIA (3) Alcohol dependence with uncomplicated withdrawal Code(s): F10.230 - ALCOHOL DEPENDENCE WITH WITHDRAWAL, UNCOMPLICATED (4) Hypokalemia Code(s): E87.6 - HYPOKALEMIA (5) Hypomagnesemia Code(s): E83.42 - HYPOMAGNESEMIA (6) Hypophosphatemia Code(s): E83.39 - OTHER DISORDERS OF PHOSPHORUS METABOLISM (7) Splenomegaly Code(s): R16.1 - SPLENOMEGALY, NOT ELSEWHERE CLASSIFIED (8) Cocaine abuse Code(s): F14.10 - COCAINE ABUSE, UNCOMPLICATED (9) Hypothyroid Code(s): E03.9 - HYPOTHYROIDISM, UNSPECIFIED Qualifiers: (10) Hyperbilirubinemia Code(s): E80.6 - OTHER DISORDERS OF BILIRUBIN METABOLISM (11) Falling episodes Code(s): R29.6 - REPEATED FALLS (12) UTI (urinary tract infection) Code(s): N39.0 - URINARY TRACT INFECTION, SITE NOT SPECIFIED (13) Hepatic encephalopathy Code(s): K72.90 - HEPATIC FAILURE, UNSPECIFIED WITHOUT COMA Assessment/Plan (1) Alcoholic cirrhosis of liver Assessment/Plan: admitted w/ severe pancytopenia abd CT w/ cirrhosis, splenomegaly heme-occult neg nadolol ammonia level elevated lactulose titrate 4bms/day /rifaximin GI following Code(s): K70.30 - ALCOHOLIC CIRRHOSIS OF LIVER WITHOUT ASCITES Qualifiers: Ascites presence: with ascites Qualified Code(s): K70.31 - Alcoholic cirrhosis of liver with ascites (2) Pancytopenia Assessment/Plan: as above, h/h stable plt in 30s transfuse plts monitor cbc PPI octreo d/c'd hematology/gi following Code(s): D61.818 - OTHER PANCYTOPENIA (3) Alcohol dependence with uncomplicated withdrawal Assessment/Plan: Blood Alcohol level- 322, CIWA-2 completed librium detox replete electrolytes as needed thiamine/folic acid nutrition consult [facility]-detox team following Dispo: possibly outpt rehab when clinically stable Code(s): F10.230 - ALCOHOL DEPENDENCE WITH WITHDRAWAL, UNCOMPLICATED (4) Hypokalemia Assessment/Plan: as above replete as needed monitor bmp Code(s): E87.6 - HYPOKALEMIA (5) Hypomagnesemia Assessment/Plan: replete Code(s): E83.42 - HYPOMAGNESEMIA (6) Hypophosphatemia Assessment/Plan: secondary to chronic alcoholism replete as needed Code(s): E83.39 - OTHER DISORDERS OF PHOSPHORUS METABOLISM (7) Splenomegaly Assessment/Plan: secondary to portal htn will monitor Code(s): R16.1 - SPLENOMEGALY, NOT ELSEWHERE CLASSIFIED (8) Cocaine abuse Assessment/Plan: urine neg detox plan as above Code(s): F14.10 - COCAINE ABUSE, UNCOMPLICATED (9) Hypothyroid Assessment/Plan: stable tsh 0.99 continue levothyroixine Code(s): E03.9 - HYPOTHYROIDISM, UNSPECIFIED Qualifiers: (10) Hyperbilirubinemia Assessment/Plan: secondary to advanced liver disease hepatic panel reviewed Code(s): E80.6 - OTHER DISORDERS OF BILIRUBIN METABOLISM (11) Falling episodes Assessment/Plan: hx of falls secondary to alcohol intoxication head CT neg abd/pelvis ct chronic T11/L1 compression fractures fall risk precautions Code(s): R29.6 - REPEATED FALLS (12) UTI (urinary tract infection) Assessment/Plan: UC grew ecoli,esbl prod Ertapenem day 11/08 ID following Code(s): N39.0 - URINARY TRACT INFECTION, SITE NOT SPECIFIED (13) Hepatic encephalopathy Assessment/Plan: NH4 trending down lactulose/rifaximine Code(s): K72.90 - HEPATIC FAILURE, UNSPECIFIED WITHOUT COMA
[2017-11-17] MEDS: hydrOXYzine HCL 25 MG TABLET (FP) PO PRN (17:18)
[2017-11-17] MEDS: TEMAZEPAM 15 MG CAPSULE PO SCH (22:07)
[2017-11-17] MEDS: THIAMINE HCL 100 MG TABLET (FP) PO SCH (22:08)
[2017-11-17] MEDS: CHLORHEXIDINE GLUCONATE 4% CLEANSER FOR DECOLONIZATION TP SCH (23:30)
[2017-11-18] MEDS: LACTULOSE 20 GM/30 ML UDC (FOR ORAL USE ONLY) PO SCH ×3 (06:11→21:18)
[2017-11-18] MEDS: LEVOTHYROXINE NA 100 MCG TABLET (FP) PO SCH (06:11)
[2017-11-18] MEDS: NAPH,MB-DB/K PH,MBDB POWDER PACKET PO SCH ×3 (06:11→21:18)
[2017-11-18 07:36] LABS: BASO % 0.7 % (0-2.0); EOS % 2.5 % (0-4.5); HEMATOCRIT 28.2 % (32.4-45.2); HEMOGLOBIN 9.4 GM/dL (10.7-15.3); LYMPH % 22.8 % (8-40); MCH 32.9 pg (25.7-33.7); MCHC 33.2 g/dl (32.0-36.0); MEAN CELL VOLUME 99.1 fl (80-96); MEAN PLT VOLUME 9.7 fl (7.5-11.1); MONO % 16.5 % (3.8-10.2); NEUT % 57.5 % (42.8-82.8); PLATELET COUNT 39 K/MM3 (134-434); RBC 2.84 M/mm3 (3.60-5.2); RDW 19.3 % (11.6-15.6); WHITE BLOOD COUNT 4.7 K/mm3 (4.0-10.0)
[2017-11-18 08:03] LABS: CHLORIDE 108 mmol/L (98-107); SODIUM 141 mmol/L (136-145)
[2017-11-18 08:12] LABS: ALBUMIN 2.6 g/dl (3.4-5.0); ALK PHOS 141 U/L (45-117); ANION GAP 6 (8-16); BILIRUBIN,TOTAL 2.2 mg/dL (0.2-1.0); BLOOD UREA NITROGEN 12 mg/dL (7-18); CALCIUM 8.3 mg/dL (8.5-10.1); CO2 27 mmol/L (21-32); CREATININE 1.2 mg/dL (0.55-1.02); GLUCOSE,RANDOM 164 mg/dL (74-106); PHOSPHOROUS 3.4 mg/dL (2.5-4.9); SGOT/AST 49 U/L (15-37); SGPT/ALT 17 U/L (12-78); TOT PROT 6.3 g/dl (6.4-8.2)
--- NOTE | 2017-11-18 09:37 | PN ---
Progress Note, Physician Chief Complaint: Pt lying in bed in no acute distress. Denies any chest pain, n/v/d, unilateral weakness. - Current Medication List Current Medications: Active Medications Artificial Tears (Artificial Tears) 1 drop OU BID PRN PRN Reason: DRY EYES Chlorhexidine Gluconate (Hibiclens For Decolonization -) 1 applic TP HS [facility] Last Admin: 11/17/17 23:30 Dose: Not Given Folic Acid (Folic Acid -) 1 mg PO DAILY [facility] Last Admin: 11/17/17 10:50 Dose: 1 mg Hydroxyzine HCl (Atarax -) 25 mg PO Q8H PRN PRN Reason: FOR ITCHING Last Admin: 11/17/17 17:18 Dose: 25 mg Ertapenem 1 gm/ Sodium (Chloride) 100 mls @ 200 mls/hr IVPB DAILY [facility] PRN Reason: Protocol Last Admin: 11/17/17 10:54 Dose: 200 mls/hr Lactulose (Cephulac (Oral Use)) 20 gm PO TID [facility] Last Admin: 11/18/17 06:11 Dose: 20 gm Levothyroxine Sodium (Synthroid -) 100 mcg PO DAILY@0700 [facility] Last Admin: 11/18/17 06:11 Dose: 100 mcg Magnesium Oxide (Mag-Ox -) 400 mg PO BID [facility] Last Admin: 11/17/17 22:08 Dose: 400 mg Metoclopramide HCl (Reglan Injection -) 10 mg IVPUSH Q8H PRN PRN Reason: NAUSEA AND/OR VOMITING Last Admin: 11/15/17 10:31 Dose: 10 mg Nadolol (Corgard -) 40 mg PO DAILY [facility] Last Admin: 11/17/17 10:51 Dose: 40 mg Pantoprazole Sodium (Protonix -) 40 mg PO BID [facility] Last Admin: 11/17/17 22:07 Dose: 40 mg Potassium Phos/Sodium Phos (Phos-Nak Packet -) 1 packet PO TID [facility] Last Admin: 11/18/17 06:11 Dose: 1 packet Multivit/Folic Acid/Iron ( Vitamins (Sjr) -) 1 tab PO DAILY [facility] Last Admin: 11/17/17 10:54 Dose: 1 tab Rifaximin (Xifaxan -) 550 mg PO BID [facility] Last Admin: 11/17/17 22:07 Dose: 550 mg Temazepam (Restoril -) 15 mg PO [facility] Last Admin: 11/17/17 22:07 Dose: 15 mg Thiamine HCl (Vitamin B1 -) 100 mg PO [facility] Last Admin: 11/17/17 22:08 Dose: 100 mg - Objective Vital Signs: Vital Signs Temperature 98.4 F 11/17/17 20:00 Pulse Rate 76 11/17/17 20:00 Respiratory Rate 20 11/17/17 21:00 Blood Pressure 121/58 11/17/17 20:00 O2 Sat by Pulse Oximetry (%) 97 11/16/17 21:00 Constitutional: Yes: Well Nourished, No Distress, Calm Cardiovascular: Yes: Regular Rate and Rhythm. No: Gallop, Murmur, Rub Respiratory: Yes: WNL, Regular, CTA Bilaterally. No: Accessory Muscle Use, SOB , Tachypnea, Wheezes Gastrointestinal: Yes: WNL, Normal Bowel Sounds, Soft, Abdomen, Obese. No: Distention, Tenderness Genitourinary: Yes: WNL Edema: Yes Edema: LLE: Trace, RLE: Trace Neurological: Yes: Alert, Oriented, Confusion (intermittent) Labs: CBC, BMP 11/18/17 06:20 11/18/17 06:20 INR, PTT INR 1.52 (0.82-1.09) H 11/15/17 07:05 Fibrinogen 181.0 mg/dL (238-498) L 11/15/17 07:05 Problem List - Problems (1) Alcoholic cirrhosis of liver Code(s): K70.30 - ALCOHOLIC CIRRHOSIS OF LIVER WITHOUT ASCITES Qualifiers: Ascites presence: with ascites Qualified Code(s): K70.31 - Alcoholic cirrhosis of liver with ascites (2) Pancytopenia Code(s): D61.818 - OTHER PANCYTOPENIA (3) Alcohol dependence with uncomplicated withdrawal Code(s): F10.230 - ALCOHOL DEPENDENCE WITH WITHDRAWAL, UNCOMPLICATED (4) Hypokalemia Code(s): E87.6 - HYPOKALEMIA (5) Hypomagnesemia Code(s): E83.42 - HYPOMAGNESEMIA (6) Hypophosphatemia Code(s): E83.39 - OTHER DISORDERS OF PHOSPHORUS METABOLISM (7) Splenomegaly Code(s): R16.1 - SPLENOMEGALY, NOT ELSEWHERE CLASSIFIED (8) Cocaine abuse Code(s): F14.10 - COCAINE ABUSE, UNCOMPLICATED (9) Hypothyroid Code(s): E03.9 - HYPOTHYROIDISM, UNSPECIFIED Qualifiers: (10) Hyperbilirubinemia Code(s): E80.6 - OTHER DISORDERS OF BILIRUBIN METABOLISM (11) Falling episodes Code(s): R29.6 - REPEATED FALLS (12) UTI (urinary tract infection) Code(s): N39.0 - URINARY TRACT INFECTION, SITE NOT SPECIFIED (13) Hepatic encephalopathy Code(s): K72.90 - HEPATIC FAILURE, UNSPECIFIED WITHOUT COMA Assessment/Plan (1) Alcoholic cirrhosis of liver Assessment/Plan: admitted w/ severe pancytopenia abd CT w/ cirrhosis, splenomegaly heme-occult neg nadolol ammonia level elevated lactulose titrate 4bms/day /rifaximin case discussed with GI, plan for egd outpt 2-3 weeks per Code(s): K70.30 - ALCOHOLIC CIRRHOSIS OF LIVER WITHOUT ASCITES Qualifiers: Ascites presence: with ascites Qualified Code(s): K70.31 - Alcoholic cirrhosis of liver with ascites (2) Pancytopenia Assessment/Plan: as above, h/h stable plt in 30s transfuse plts per hematology monitor cbc PPI discussed with hematology, pt cleared from hematology stand point Code(s): D61.818 - OTHER PANCYTOPENIA (3) Alcohol dependence with uncomplicated withdrawal Assessment/Plan: Blood Alcohol level- 322, CIWA-2 completed librium detox replete electrolytes as needed thiamine/folic acid nutrition consult [facility]-detox team following Dispo: possibly outpt rehab when clinically stable Code(s): F10.230 - ALCOHOL DEPENDENCE WITH WITHDRAWAL, UNCOMPLICATED (4) Hypokalemia Assessment/Plan: as above replete as needed monitor bmp Code(s): E87.6 - HYPOKALEMIA (5) Hypomagnesemia Assessment/Plan: replete Code(s): E83.42 - HYPOMAGNESEMIA (6) Hypophosphatemia Assessment/Plan: improved Code(s): E83.39 - OTHER DISORDERS OF PHOSPHORUS METABOLISM (7) Splenomegaly Assessment/Plan: secondary to portal htn will monitor Code(s): R16.1 - SPLENOMEGALY, NOT ELSEWHERE CLASSIFIED (8) Cocaine abuse Assessment/Plan: urine neg detox plan as above Code(s): F14.10 - COCAINE ABUSE, UNCOMPLICATED (9) Hypothyroid Assessment/Plan: stable tsh 0.99 continue levothyroixine Code(s): E03.9 - HYPOTHYROIDISM, UNSPECIFIED Qualifiers: (10) Hyperbilirubinemia Assessment/Plan: secondary to advanced liver disease hepatic panel reviewed Code(s): E80.6 - OTHER DISORDERS OF BILIRUBIN METABOLISM (11) Falling episodes Assessment/Plan: hx of falls secondary to alcohol intoxication head CT neg abd/pelvis ct chronic T11/L1 compression fractures fall risk precautions Code(s): R29.6 - REPEATED FALLS (12) UTI (urinary tract infection) Assessment/Plan: UC grew ecoli,esbl prod Ertapenem day 12/08 ID following Code(s): N39.0 - URINARY TRACT INFECTION, SITE NOT SPECIFIED (13) Hepatic encephalopathy Assessment/Plan: NH4 trending down lactulose/rifaximine Code(s): K72.90 - HEPATIC FAILURE, UNSPECIFIED WITHOUT COMA Dispo: SNF, pt will require IV antibiotics per ID. MAX Waldron informed, armani sent. Will plan for PICC placement upon snf placement
[2017-11-18] MEDS ORDERED: PT OWN MED DRAWER 7, Y5N ONE (11:06)
[2017-11-18] MEDS ORDERED: NADOLOL 20 MG TABLET (FP) ONE ×2 (11:06→11:15)
[2017-11-18] MEDS: FOLIC ACID 1 MG TABLET (FP) PO SCH (11:11)
[2017-11-18] MEDS: RIFAXIMIN 550 MG TABLET (UD) PO SCH ×2 (11:11→21:18)
--- NOTE | 2017-11-18 11:11 | PN ---
Progress Note, Physician History of Present Illness: no acute events patient stable - Current Medication List Current Medications: Active Medications Artificial Tears (Artificial Tears) 1 drop OU BID PRN PRN Reason: DRY EYES Chlorhexidine Gluconate (Hibiclens For Decolonization -) 1 applic TP HS [facility] Last Admin: 11/17/17 23:30 Dose: Not Given Folic Acid (Folic Acid -) 1 mg PO DAILY [facility] Last Admin: 11/17/17 10:50 Dose: 1 mg Hydroxyzine HCl (Atarax -) 25 mg PO Q8H PRN PRN Reason: FOR ITCHING Last Admin: 11/17/17 17:18 Dose: 25 mg Ertapenem 1 gm/ Sodium (Chloride) 100 mls @ 200 mls/hr IVPB DAILY [facility] PRN Reason: Protocol Last Admin: 11/17/17 10:54 Dose: 200 mls/hr Lactulose (Cephulac (Oral Use)) 20 gm PO TID [facility] Last Admin: 11/18/17 06:11 Dose: 20 gm Levothyroxine Sodium (Synthroid -) 100 mcg PO DAILY@0700 [facility] Last Admin: 11/18/17 06:11 Dose: 100 mcg Magnesium Oxide (Mag-Ox -) 400 mg PO BID [facility] Last Admin: 11/17/17 22:08 Dose: 400 mg Nadolol (Corgard -) 40 mg PO DAILY [facility] Last Admin: 11/17/17 10:51 Dose: 40 mg Pantoprazole Sodium (Protonix -) 40 mg PO BID [facility] Last Admin: 11/17/17 22:07 Dose: 40 mg Potassium Phos/Sodium Phos (Phos-Nak Packet -) 1 packet PO TID [facility] Last Admin: 11/18/17 06:11 Dose: 1 packet Multivit/Folic Acid/Iron ( Vitamins (Sjr) -) 1 tab PO DAILY [facility] Last Admin: 11/17/17 10:54 Dose: 1 tab Rifaximin (Xifaxan -) 550 mg PO BID [facility] Last Admin: 11/17/17 22:07 Dose: 550 mg Temazepam (Restoril -) 15 mg PO HS [facility] Last Admin: 11/17/17 22:07 Dose: 15 mg Thiamine HCl (Vitamin B1 -) 100 mg PO HS [facility] Last Admin: 11/17/17 22:08 Dose: 100 mg - Objective Vital Signs: Vital Signs Temperature 98.3 F 11/18/17 10:28 Pulse Rate 68 11/18/17 10:28 Respiratory Rate 16 11/18/17 10:28 Blood Pressure 109/78 11/18/17 10:28 O2 Sat by Pulse Oximetry (%) 97 11/16/17 21:00 Constitutional: Yes: No Distress, Calm Respiratory: Yes: Regular, CTA Bilaterally Gastrointestinal: Yes: Normal Bowel Sounds, Soft Musculoskeletal: Yes: WNL Extremities: Yes: WNL Neurological: Yes: Alert Psychiatric: Yes: Alert Labs: CBC, BMP 11/18/17 06:20 11/18/17 06:20 INR, PTT INR 1.52 (0.82-1.09) H 11/15/17 07:05 Fibrinogen 181.0 mg/dL (238-498) L 11/15/17 07:05 Assessment/Plan Assessment/Plan (1) Alcoholic cirrhosis of liver Code(s): K70.30 - ALCOHOLIC CIRRHOSIS OF LIVER WITHOUT ASCITES Qualifiers: Ascites presence: with ascites Qualified Code(s): K70.31 - Alcoholic cirrhosis of liver with ascites (2) Pancytopenia Code(s): D61.818 - OTHER PANCYTOPENIA (3) Alcohol dependence with uncomplicated withdrawal Code(s): F10.230 - ALCOHOL DEPENDENCE WITH WITHDRAWAL, UNCOMPLICATED (4) Hypokalemia Code(s): E87.6 - HYPOKALEMIA (5) Hypomagnesemia Code(s): E83.42 - HYPOMAGNESEMIA (6) Hypophosphatemia Code(s): E83.39 - OTHER DISORDERS OF PHOSPHORUS METABOLISM (7) Splenomegaly Code(s): R16.1 - SPLENOMEGALY, NOT ELSEWHERE CLASSIFIED (8) Coagulopathy (9) Hypothyroid Code(s): E03.9 - HYPOTHYROIDISM, UNSPECIFIED Qualifiers: (10) Falling episodes Code(s): R29.6 - REPEATED FALLS (11) UTI (urinary tract infection) Code(s): N39.0 - URINARY TRACT INFECTION, SITE NOT SPECIFIED (12) Hepatic encephalopathy Code(s): K72.90 - HEPATIC FAILURE, UNSPECIFIED WITHOUT COMA plan' continue as per detox continue abx nutrition rest as per the team physio
[2017-11-18] MEDS: PANTOPRAZOLE 40 MG TABLET (FP) PO SCH ×2 (11:12→21:18)
[2017-11-18] MEDS: PRENATAL VITAMINS W/ FOLIC ACID TABLET (FP) PO SCH (11:12)
[2017-11-18] MEDS: MAGNESIUM OXIDE 400 MG TABLET (FP) PO SCH ×2 (11:12→21:18)
[2017-11-18] MEDS: ERTAPENEM SODIUM 1 GM in SODIUM CHLORIDE 100 ML IVPB SCH (11:12)
[2017-11-18] MEDS: NADOLOL 40 MG TABLET (FP) PO SCH (11:16)
--- NOTE | 2017-11-18 11:38 | PN ---
Progress Note (short form) - Note Progress Note: Resting in NAD. NO CP or SOB. No acute events overnight. Intake & Output 11/15/17 11/16/17 11/17/17 11/18/17 23:59 23:59 23:59 23:59 Intake Total 178 755 4182 440 Output Total 450 Balance 552 232 589 440 Weight 168 lb 5 oz Last Vital Signs Temp Pulse Resp BP Pulse Ox 98.3 F 68 16 109/78 97 11/18/17 10:28 11/18/17 10:28 11/18/17 10:28 11/18/17 10:28 11/16/17 21:00 Active Medications Artificial Tears (Artificial Tears) 1 drop OU BID PRN PRN Reason: DRY EYES Chlorhexidine Gluconate (Hibiclens For Decolonization -) 1 applic TP HS [facility] Last Admin: 11/17/17 23:30 Dose: Not Given Folic Acid (Folic Acid -) 1 mg PO DAILY [facility] Last Admin: 11/18/17 11:11 Dose: 1 mg Hydroxyzine HCl (Atarax -) 25 mg PO Q8H PRN PRN Reason: FOR ITCHING Last Admin: 11/17/17 17:18 Dose: 25 mg Ertapenem 1 gm/ Sodium (Chloride) 100 mls @ 200 mls/hr IVPB DAILY [facility] PRN Reason: Protocol Last Admin: 11/18/17 11:12 Dose: 200 mls/hr Lactulose (Cephulac (Oral Use)) 20 gm PO TID [facility] Last Admin: 11/18/17 06:11 Dose: 20 gm Levothyroxine Sodium (Synthroid -) 100 mcg PO DAILY@0700 [facility] Last Admin: 11/18/17 06:11 Dose: 100 mcg Magnesium Oxide (Mag-Ox -) 400 mg PO BID [facility] Last Admin: 11/18/17 11:12 Dose: 400 mg Nadolol (Corgard -) 40 mg PO DAILY [facility] Last Admin: 11/18/17 11:16 Dose: 40 mg Pantoprazole Sodium (Protonix -) 40 mg PO BID [facility] Last Admin: 11/18/17 11:12 Dose: 40 mg Potassium Phos/Sodium Phos (Phos-Nak Packet -) 1 packet PO TID [facility] Last Admin: 11/18/17 06:11 Dose: 1 packet Multivit/Folic Acid/Iron ( Vitamins (Sjr) -) 1 tab PO DAILY [facility] Last Admin: 11/18/17 11:12 Dose: 1 tab Rifaximin (Xifaxan -) 550 mg PO BID [facility] Last Admin: 11/18/17 11:11 Dose: 550 mg Temazepam (Restoril -) 15 mg PO HS [facility] Last Admin: 11/17/17 22:07 Dose: 15 mg Thiamine HCl (Vitamin B1 -) 100 mg PO HS [facility] Last Admin: 11/17/17 22:08 Dose: 100 mg Gen: awake, NAD Heart: regular Lung: decreased breath sounds at the bases Abd: soft, nontender Ext: no edema Laboratory Results - last 24 hr 11/18/17 11/18/17 06:20 06:20 WBC 4.7 RBC 2.84 L Hgb 9.4 L Hct 28.2 L MCV 99.1 H MCH 32.9 MCHC 33.2 RDW 19.3 H Plt Count 39 L MPV 9.7 Neutrophils % 57.5 D Lymphocytes % 22.8 D Monocytes % 16.5 H Eosinophils % 2.5 Basophils % 0.7 Sodium 141 Potassium 4.0 Chloride 108 H Carbon Dioxide 27 Anion Gap 6 L BUN 12 Creatinine 1.2 H Creat Clearance w eGFR 46.82 Random Glucose 164 H Calcium 8.3 L Phosphorus 3.4 Magnesium 2.0 Total Bilirubin 2.2 H D AST 49 H ALT 17 Alkaline Phosphatase 141 H Total Protein 6.3 L Albumin 2.6 L ASSESSMENT AND PLAN: Alcohol Intoxication/Abuse Pancytopenia/Anemia/Severe Thrombocytopenia Liver Cirrhosis Splenomegaly Coagulopathy - Normal transfusion thresholds - ABX per ID - Rifaximin - PPI Dr Melendez
[2017-11-18] MEDS: hydrOXYzine HCL 25 MG TABLET (FP) PO PRN (17:29)
[2017-11-18] MEDS: TEMAZEPAM 15 MG CAPSULE PO SCH (21:18)
[2017-11-18] MEDS: THIAMINE HCL 100 MG TABLET (FP) PO SCH (21:18)
[2017-11-18] MEDS: CHLORHEXIDINE GLUCONATE 4% CLEANSER FOR DECOLONIZATION TP SCH (21:19)
[2017-11-19] MEDS: LACTULOSE 20 GM/30 ML UDC (FOR ORAL USE ONLY) PO SCH (06:16)
[2017-11-19] MEDS: NAPH,MB-DB/K PH,MBDB POWDER PACKET PO SCH ×3 (06:16→21:53)
[2017-11-19] MEDS: LEVOTHYROXINE NA 100 MCG TABLET (FP) PO SCH (06:16)
[2017-11-19 07:50] LABS: INR 1.58 (0.82-1.09); PROTHROMBIN TIME (PATIENT) 17.9 SEC (9.7-13.0)
[2017-11-19 08:10] LABS: HEMATOCRIT 29.1 % (32.4-45.2); HEMOGLOBIN 9.6 GM/dL (10.7-15.3); MCH 32.9 pg (25.7-33.7); MCHC 33.2 g/dl (32.0-36.0); MEAN CELL VOLUME 99.3 fl (80-96); MEAN PLT VOLUME 9.5 fl (7.5-11.1); PLATELET COUNT 41 K/MM3 (134-434); RBC 2.93 M/mm3 (3.60-5.2); RDW 19.2 % (11.6-15.6); WHITE BLOOD COUNT 4.3 K/mm3 (4.0-10.0)
[2017-11-19 08:35] LABS: ANION GAP 6 (8-16); BLOOD UREA NITROGEN 11 mg/dL (7-18); CALCIUM 8.5 mg/dL (8.5-10.1); CHLORIDE 107 mmol/L (98-107); CO2 26 mmol/L (21-32); CREATININE 1.3 mg/dL (0.55-1.02); GLUCOSE,RANDOM 132 mg/dL (74-106); PHOSPHOROUS 3.2 mg/dL (2.5-4.9); SODIUM 139 mmol/L (136-145)
[2017-11-19 09:30] LABS: ANISOCYTOSIS 1+; PLATELET ESTIMATE DECREASED; TEAR DROP CELLS 2+
[2017-11-19] MEDS ORDERED: NADOLOL 20 MG TABLET (FP) ONE (10:54)
[2017-11-19] MEDS ORDERED: PT OWN MED DRAWER 7, Y5N ONE (10:55)
[2017-11-19] MEDS: ERTAPENEM SODIUM 1 GM in SODIUM CHLORIDE 100 ML IVPB SCH (10:59)
[2017-11-19] MEDS: MAGNESIUM OXIDE 400 MG TABLET (FP) PO SCH ×2 (11:00→21:53)
[2017-11-19] MEDS: RIFAXIMIN 550 MG TABLET (UD) PO SCH ×2 (11:00→21:53)
[2017-11-19] MEDS: FOLIC ACID 1 MG TABLET (FP) PO SCH (11:00)
[2017-11-19] MEDS: PANTOPRAZOLE 40 MG TABLET (FP) PO SCH ×2 (11:00→21:53)
[2017-11-19] MEDS: PRENATAL VITAMINS W/ FOLIC ACID TABLET (FP) PO SCH (11:01)
[2017-11-19] MEDS: NADOLOL 40 MG TABLET (FP) PO SCH (11:01)
[2017-11-19] MEDS ORDERED: PICC LINE 8 ML FLUSH PROTOCOL IVPUSH PRN (11:08)
--- NOTE | 2017-11-19 11:16 | PN ---
Progress Note, Physician Chief Complaint: Pt lying in bed in no acute distress. Denies any chest pain, n/v/d, unilateral weakness. - Current Medication List Current Medications: Active Medications Artificial Tears (Artificial Tears) 1 drop OU BID PRN PRN Reason: DRY EYES Chlorhexidine Gluconate (Hibiclens For Decolonization -) 1 applic TP HS [facility] Last Admin: 11/18/17 21:19 Dose: Not Given Folic Acid (Folic Acid -) 1 mg PO DAILY [facility] Last Admin: 11/19/17 11:00 Dose: 1 mg Hydroxyzine HCl (Atarax -) 25 mg PO Q8H PRN PRN Reason: FOR ITCHING Last Admin: 11/18/17 17:29 Dose: 25 mg IV Flush (Picc Line Flush) 8 ml IVPUSH PRN PRN PRN Reason: Protocol Ertapenem 1 gm/ Sodium (Chloride) 100 mls @ 200 mls/hr IVPB DAILY [facility] PRN Reason: Protocol Last Admin: 11/19/17 10:59 Dose: 200 mls/hr Lactulose (Cephulac (Oral Use)) 20 gm PO TID [facility] Last Admin: 11/19/17 06:16 Dose: 20 gm Levothyroxine Sodium (Synthroid -) 100 mcg PO DAILY@0700 [facility] Last Admin: 11/19/17 06:16 Dose: 100 mcg Magnesium Oxide (Mag-Ox -) 400 mg PO BID [facility] Last Admin: 11/19/17 11:00 Dose: 400 mg Nadolol (Corgard -) 40 mg PO DAILY [facility] Last Admin: 11/19/17 11:01 Dose: 40 mg Pantoprazole Sodium (Protonix -) 40 mg PO BID [facility] Last Admin: 11/19/17 11:00 Dose: 40 mg Potassium Phos/Sodium Phos (Phos-Nak Packet -) 1 packet PO TID [facility] Last Admin: 11/19/17 06:16 Dose: 1 packet Multivit/Folic Acid/Iron ( Vitamins (Sjr) -) 1 tab PO DAILY [facility] Last Admin: 11/19/17 11:01 Dose: 1 tab Rifaximin (Xifaxan -) 550 mg PO BID [facility] Last Admin: 11/19/17 11:00 Dose: 550 mg Temazepam (Restoril -) 15 mg PO HS [facility] Last Admin: 11/18/17 21:18 Dose: 15 mg Thiamine HCl (Vitamin B1 -) 100 mg PO HS [facility] Last Admin: 11/18/17 21:18 Dose: 100 mg - Objective Vital Signs: Vital Signs Temperature 98.2 F 11/19/17 06:00 Pulse Rate 58 L 11/19/17 06:00 Respiratory Rate 20 11/19/17 06:00 Blood Pressure 127/64 11/19/17 06:00 O2 Sat by Pulse Oximetry (%) 99 11/18/17 21:00 Constitutional: Yes: Well Nourished, No Distress Cardiovascular: Yes: WNL, Regular Rate and Rhythm. No: Bruit, Gallop, Murmur Respiratory: Yes: WNL, Regular, CTA Bilaterally. No: Accessory Muscle Use, SOB , Tachypnea, Wheezes Gastrointestinal: Yes: WNL, Normal Bowel Sounds, Soft, Abdomen, Obese. No: Distention, Tenderness Genitourinary: Yes: WNL Edema: No Neurological: Yes: WNL, Alert, Oriented, Confusion (intermittent) Psychiatric: Yes: WNL, Alert, Oriented Labs: CBC, BMP 11/19/17 06:20 11/19/17 06:20 INR, PTT INR 1.58 (0.82-1.09) H 11/19/17 06:20 Fibrinogen 181.0 mg/dL (238-498) L 11/15/17 07:05 Problem List - Problems (1) Alcoholic cirrhosis of liver Code(s): K70.30 - ALCOHOLIC CIRRHOSIS OF LIVER WITHOUT ASCITES Qualifiers: Ascites presence: with ascites Qualified Code(s): K70.31 - Alcoholic cirrhosis of liver with ascites (2) Pancytopenia Code(s): D61.818 - OTHER PANCYTOPENIA (3) Alcohol dependence with uncomplicated withdrawal Code(s): F10.230 - ALCOHOL DEPENDENCE WITH WITHDRAWAL, UNCOMPLICATED (4) Hypokalemia Code(s): E87.6 - HYPOKALEMIA (5) Hypomagnesemia Code(s): E83.42 - HYPOMAGNESEMIA (6) Hypophosphatemia Code(s): E83.39 - OTHER DISORDERS OF PHOSPHORUS METABOLISM (7) Splenomegaly Code(s): R16.1 - SPLENOMEGALY, NOT ELSEWHERE CLASSIFIED (8) Cocaine abuse Code(s): F14.10 - COCAINE ABUSE, UNCOMPLICATED (9) Hypothyroid Code(s): E03.9 - HYPOTHYROIDISM, UNSPECIFIED Qualifiers: (10) Hyperbilirubinemia Code(s): E80.6 - OTHER DISORDERS OF BILIRUBIN METABOLISM (11) Falling episodes Code(s): R29.6 - REPEATED FALLS (12) UTI (urinary tract infection) Code(s): N39.0 - URINARY TRACT INFECTION, SITE NOT SPECIFIED (13) Hepatic encephalopathy Code(s): K72.90 - HEPATIC FAILURE, UNSPECIFIED WITHOUT COMA Assessment/Plan (1) Alcoholic cirrhosis of liver Assessment/Plan: admitted w/ severe pancytopenia abd CT w/ cirrhosis, splenomegaly heme-occult neg nadolol ammonia level elevated lactulose titrate 4bms/day /rifaximin case discussed with GI, plan for egd outpt 2-3 weeks per Code(s): K70.30 - ALCOHOLIC CIRRHOSIS OF LIVER WITHOUT ASCITES Qualifiers: Ascites presence: with ascites Qualified Code(s): K70.31 - Alcoholic cirrhosis of liver with ascites (2) Pancytopenia Assessment/Plan: as above, h/h stable plt in 30s transfuse plts per hematology monitor cbc PPI discussed with hematology, pt cleared from hematology stand point Code(s): D61.818 - OTHER PANCYTOPENIA (3) Alcohol dependence with uncomplicated withdrawal Assessment/Plan: Blood Alcohol level- 322, CIWA-2 completed librium detox replete electrolytes as needed thiamine/folic acid nutrition consult S-detox team following Dispo: possibly outpt rehab when clinically stable Code(s): F10.230 - ALCOHOL DEPENDENCE WITH WITHDRAWAL, UNCOMPLICATED (4) Hypokalemia Assessment/Plan: as above replete as needed monitor bmp Code(s): E87.6 - HYPOKALEMIA (5) Hypomagnesemia Assessment/Plan: replete Code(s): E83.42 - HYPOMAGNESEMIA (6) Hypophosphatemia Assessment/Plan: improved Code(s): E83.39 - OTHER DISORDERS OF PHOSPHORUS METABOLISM (7) Splenomegaly Assessment/Plan: secondary to portal htn will monitor Code(s): R16.1 - SPLENOMEGALY, NOT ELSEWHERE CLASSIFIED (8) Cocaine abuse Assessment/Plan: urine neg detox plan as above Code(s): F14.10 - COCAINE ABUSE, UNCOMPLICATED (9) Hypothyroid Assessment/Plan: stable tsh 0.99 continue levothyroixine Code(s): E03.9 - HYPOTHYROIDISM, UNSPECIFIED Qualifiers: (10) Hyperbilirubinemia Assessment/Plan: secondary to advanced liver disease hepatic panel reviewed Code(s): E80.6 - OTHER DISORDERS OF BILIRUBIN METABOLISM (11) Falling episodes Assessment/Plan: hx of falls secondary to alcohol intoxication head CT neg abd/pelvis ct chronic T11/L1 compression fractures fall risk precautions Code(s): R29.6 - REPEATED FALLS (12) UTI (urinary tract infection) Assessment/Plan: UC grew ecoli,esbl prod Ertapenem day 01/08 IR for PICC upon d/c ID following Code(s): N39.0 - URINARY TRACT INFECTION, SITE NOT SPECIFIED (13) Hepatic encephalopathy Assessment/Plan: NH4 elevate lactulose/rifaximine Code(s): K72.90 - HEPATIC FAILURE, UNSPECIFIED WITHOUT COMA Dispo: SNF, pt will require IV antibiotics per ID. SW aware of plan, awa sent. awaiting AWA approval
--- NOTE | 2017-11-19 12:45 | PN ---
Progress Note, Physician History of Present Illness: stable no new issues weakness waled inside the room still wobbling - Current Medication List Current Medications: Active Medications Artificial Tears (Artificial Tears) 1 drop OU BID PRN PRN Reason: DRY EYES Folic Acid (Folic Acid -) 1 mg PO DAILY [facility] Last Admin: 11/19/17 11:00 Dose: 1 mg Hydroxyzine HCl (Atarax -) 25 mg PO Q8H PRN PRN Reason: FOR ITCHING Last Admin: 11/18/17 17:29 Dose: 25 mg IV Flush (Picc Line Flush) 8 ml IVPUSH PRN PRN PRN Reason: Protocol Ertapenem 1 gm/ Sodium (Chloride) 100 mls @ 200 mls/hr IVPB DAILY [facility] PRN Reason: Protocol Last Admin: 11/19/17 10:59 Dose: 200 mls/hr Lactulose (Cephulac (Oral Use)) 20 gm PO TID [facility] Last Admin: 11/19/17 06:16 Dose: 20 gm Levothyroxine Sodium (Synthroid -) 100 mcg PO DAILY@0700 [facility] Last Admin: 11/19/17 06:16 Dose: 100 mcg Magnesium Oxide (Mag-Ox -) 400 mg PO BID [facility] Last Admin: 11/19/17 11:00 Dose: 400 mg Nadolol (Corgard -) 40 mg PO DAILY [facility] Last Admin: 11/19/17 11:01 Dose: 40 mg Pantoprazole Sodium (Protonix -) 40 mg PO BID [facility] Last Admin: 11/19/17 11:00 Dose: 40 mg Potassium Phos/Sodium Phos (Phos-Nak Packet -) 1 packet PO TID [facility] Last Admin: 11/19/17 06:16 Dose: 1 packet Multivit/Folic Acid/Iron ( Vitamins (Sjr) -) 1 tab PO DAILY [facility] Last Admin: 11/19/17 11:01 Dose: 1 tab Rifaximin (Xifaxan -) 550 mg PO BID [facility] Last Admin: 11/19/17 11:00 Dose: 550 mg Temazepam (Restoril -) 15 mg PO HS [facility] Last Admin: 11/18/17 21:18 Dose: 15 mg Thiamine HCl (Vitamin B1 -) 100 mg PO HS [facility] Last Admin: 11/18/17 21:18 Dose: 100 mg - Objective Vital Signs: Vital Signs Temperature 98.2 F 11/19/17 06:00 Pulse Rate 58 L 11/19/17 06:00 Respiratory Rate 20 11/19/17 06:00 Blood Pressure 127/64 11/19/17 06:00 O2 Sat by Pulse Oximetry (%) 99 11/18/17 21:00 Constitutional: Yes: No Distress, Calm Eyes: Yes: Sclera Icterus Cardiovascular: Yes: Regular Rate and Rhythm Respiratory: Yes: Regular, CTA Bilaterally Gastrointestinal: Yes: Normal Bowel Sounds, Soft Musculoskeletal: Yes: Muscle Weakness, Other (wobbling) Neurological: Yes: Alert, Oriented Psychiatric: Yes: Alert, Oriented Labs: CBC, BMP 11/19/17 06:20 11/19/17 06:20 INR, PTT INR 1.58 (0.82-1.09) H 11/19/17 06:20 Fibrinogen 181.0 mg/dL (238-498) L 11/15/17 07:05 Assessment/Plan Assessment/Plan (1) Alcoholic cirrhosis of liver Code(s): K70.30 - ALCOHOLIC CIRRHOSIS OF LIVER WITHOUT ASCITES Qualifiers: Ascites presence: with ascites Qualified Code(s): K70.31 - Alcoholic cirrhosis of liver with ascites (2) Pancytopenia Code(s): D61.818 - OTHER PANCYTOPENIA (3) Alcohol dependence with uncomplicated withdrawal Code(s): F10.230 - ALCOHOL DEPENDENCE WITH WITHDRAWAL, UNCOMPLICATED (4) Hypokalemia Code(s): E87.6 - HYPOKALEMIA (5) Hypomagnesemia Code(s): E83.42 - HYPOMAGNESEMIA (6) Hypophosphatemia Code(s): E83.39 - OTHER DISORDERS OF PHOSPHORUS METABOLISM (7) Splenomegaly Code(s): R16.1 - SPLENOMEGALY, NOT ELSEWHERE CLASSIFIED (8) Coagulopathy (9) Hypothyroid Code(s): E03.9 - HYPOTHYROIDISM, UNSPECIFIED Qualifiers: (10) Falling episodes Code(s): R29.6 - REPEATED FALLS (11) UTI (urinary tract infection) Code(s): N39.0 - URINARY TRACT INFECTION, SITE NOT SPECIFIED (12) Hepatic encephalopathy Code(s): K72.90 - HEPATIC FAILURE, UNSPECIFIED WITHOUT COMA plan' continue as per detox continue abx nutrition rest as per the team physio
--- NOTE | 2017-11-19 12:55 | PN ---
Progress Note, Physician History of Present Illness: No events. No stigmata of ongoing gastrointestinal blood loss. Awake, alert, oriented, however c/o halucinations and feeling confused at night. Reports more than 10 bms while on lactulose BID. - Current Medication List Current Medications: Active Medications Artificial Tears (Artificial Tears) 1 drop OU BID PRN PRN Reason: DRY EYES Folic Acid (Folic Acid -) 1 mg PO DAILY [facility] Last Admin: 11/19/17 11:00 Dose: 1 mg Hydroxyzine HCl (Atarax -) 25 mg PO Q8H PRN PRN Reason: FOR ITCHING Last Admin: 11/18/17 17:29 Dose: 25 mg IV Flush (Picc Line Flush) 8 ml IVPUSH PRN PRN PRN Reason: Protocol Ertapenem 1 gm/ Sodium (Chloride) 100 mls @ 200 mls/hr IVPB DAILY [facility] PRN Reason: Protocol Last Admin: 11/19/17 10:59 Dose: 200 mls/hr Lactulose (Cephulac (Oral Use)) 20 gm PO TID [facility] Last Admin: 11/19/17 06:16 Dose: 20 gm Levothyroxine Sodium (Synthroid -) 100 mcg PO DAILY@0700 [facility] Last Admin: 11/19/17 06:16 Dose: 100 mcg Magnesium Oxide (Mag-Ox -) 400 mg PO BID [facility] Last Admin: 11/19/17 11:00 Dose: 400 mg Nadolol (Corgard -) 40 mg PO DAILY [facility] Last Admin: 11/19/17 11:01 Dose: 40 mg Pantoprazole Sodium (Protonix -) 40 mg PO BID [facility] Last Admin: 11/19/17 11:00 Dose: 40 mg Potassium Phos/Sodium Phos (Phos-Nak Packet -) 1 packet PO TID [facility] Last Admin: 11/19/17 06:16 Dose: 1 packet Multivit/Folic Acid/Iron ( Vitamins (Sjr) -) 1 tab PO DAILY [facility] Last Admin: 11/19/17 11:01 Dose: 1 tab Rifaximin (Xifaxan -) 550 mg PO BID [facility] Last Admin: 11/19/17 11:00 Dose: 550 mg Temazepam (Restoril -) 15 mg PO [facility] Last Admin: 11/18/17 21:18 Dose: 15 mg Thiamine HCl (Vitamin B1 -) 100 mg PO HS [facility] Last Admin: 11/18/17 21:18 Dose: 100 mg - Objective Vital Signs: Vital Signs Temperature 98.2 F 11/19/17 06:00 Pulse Rate 58 L 11/19/17 06:00 Respiratory Rate 20 11/19/17 06:00 Blood Pressure 127/64 11/19/17 06:00 O2 Sat by Pulse Oximetry (%) 99 11/18/17 21:00 Constitutional: Yes: Well Nourished, No Distress, Calm Eyes: Yes: Conjunctiva Clear. No: Sclera Icterus HENT: Yes: Atraumatic Neck: Yes: Supple Cardiovascular: No: Bradycardia, Tachycardia Respiratory: Yes: Regular Gastrointestinal: Yes: Soft. No: Ascites, Distention, Melena, Rectal Bleeding, Tenderness, Tenderness, Epigastrium Neurological: Yes: Alert, Oriented. No: Asterixis, Confusion Labs: CBC, BMP 11/19/17 06:20 11/19/17 06:20 INR, PTT INR 1.58 (0.82-1.09) H 11/19/17 06:20 Fibrinogen 181.0 mg/dL (238-498) L 11/15/17 07:05 Laboratory Last Values WBC 4.3 K/mm3 (4.0-10.0) 11/19/17 06:20 RBC 2.93 M/mm3 (3.60-5.2) L 11/19/17 06:20 Hgb 9.6 GM/dL (10.7-15.3) L 11/19/17 06:20 Hct 29.1 % (32.4-45.2) L 11/19/17 06:20 MCV 99.3 fl (80-96) H 11/19/17 06:20 MCH 32.9 pg (25.7-33.7) 11/19/17 06:20 MCHC 33.2 g/dl (32.0-36.0) 11/19/17 06:20 RDW 19.2 % (11.6-15.6) H 11/19/17 06:20 Plt Count 41 K/MM3 (134-434) L 11/19/17 06:20 MPV 9.5 fl (7.5-11.1) 11/19/17 06:20 Neutrophils % No Result Required. 11/19/17 06:20 Neutrophils % (Manual) 48.0 % (42.8-82.8) D 11/19/17 06:20 Band Neutrophils % 0.0 % 11/19/17 06:20 Lymphocytes % No Result Required. 11/19/17 06:20 Lymphocytes % (Manual) 33.7 % (8-40) D 11/19/17 06:20 Monocytes % 16.5 % (3.8-10.2) H 11/18/17 06:20 Monocytes % (Manual) 13 % (3.8-10.2) H 11/19/17 06:20 Eosinophils % 2.5 % (0-4.5) 11/18/17 06:20 Eosinophils % (Manual) 2.0 % (0-4.5) D 11/19/17 06:20 Basophils % 0.7 % (0-2.0) 11/18/17 06:20 Basophils % (Manual) 2.0 % (0-2.0) D 11/19/17 06:20 Myelocytes % (Man) 0 % (0-2) 11/19/17 06:20 Promyelocytes % (Man) 0 % (0-2) 11/19/17 06:20 Blast Cells % (Manual) 0 % (0-0) 11/19/17 06:20 Nucleated RBC % 0 % (0-0) 11/19/17 06:20 Metamyelocytes 1 % (0-2) D 11/19/17 06:20 Hypochromia 0 11/14/17 06:30 Platelet Estimate Decreased 11/19/17 06:20 Polychromasia 1+ 11/19/17 06:20 Poikilocytosis 0 11/12/17 06:05 Anisocytosis 1+ 11/19/17 06:20 Microcytosis 1+ 11/14/17 06:30 Tear Drop Cells 2+ 11/19/17 06:20 Stomatocytes 2+ 11/19/17 06:20 PT with INR 17.90 SEC (9.7-13.0) H 11/19/17 06:20 INR 1.58 (0.82-1.09) H 11/19/17 06:20 PTT (Actin FS) 31.8 SECONDS (26.9-34.4) 11/15/17 07:05 Fibrinogen 181.0 mg/dL (238-498) L 11/15/17 07:05 Sodium 139 mmol/L (136-145) 11/19/17 06:20 Potassium 4.0 mmol/L (3.5-5.1) 11/19/17 06:20 Chloride 107 mmol/L (98-107) 11/19/17 06:20 Carbon Dioxide 26 mmol/L (21-32) 11/19/17 06:20 Anion Gap 6 (8-16) L 11/19/17 06:20 BUN 11 mg/dL (7-18) 11/19/17 06:20 Creatinine 1.3 mg/dL (0.55-1.02) H 11/19/17 06:20 Creat Clearance w eGFR 46.82 (>60) 11/18/17 06:20 Random Glucose 132 mg/dL (74-106) H 11/19/17 06:20 Calcium 8.5 mg/dL (8.5-10.1) 11/19/17 06:20 Phosphorus 3.2 mg/dL (2.5-4.9) 11/19/17 06:20 Magnesium 2.0 mg/dL (1.8-2.4) 11/19/17 06:20 Iron 41 ug/dL (27-159) 11/12/17 03:00 TIBC 342 ug/dL (250-450) 11/12/17 03:00 Iron Saturation 12 % (15-55) L 11/12/17 03:00 Ferritin 66.514 ng/ml (6.9-282.5) 11/12/17 03:00 Total Bilirubin 2.2 mg/dL (0.2-1.0) H D 11/18/17 06:20 Direct Bilirubin 2.4 mg/dL (0.0-0.2) H 11/15/17 07:05 AST 49 U/L (15-37) H 11/18/17 06:20 ALT 17 U/L (12-78) 11/18/17 06:20 Alkaline Phosphatase 141 U/L (45-117) H 11/18/17 06:20 Ammonia 107.58 umol/L (11-32) H 11/19/17 06:20 Creatine Kinase 313 IU/L (26-192) H 11/12/17 18:00 Creatine Kinase Index 0.7 % (0.0-5.0) 11/12/17 18:00 CK-MB (CK-2) 2.349 ng/mL (0.5-3.6) 11/12/17 18:00 Troponin I 0.06 ng/ml (0.00-0.05) H 11/13/17 05:32 B-Natriuretic Peptide 22.95 pg/ml (5-125) 11/11/17 20:26 Total Protein 6.3 g/dl (6.4-8.2) L 11/18/17 06:20 Albumin 2.6 g/dl (3.4-5.0) L 11/18/17 06:20 Vitamin B12 934 pg/ml (180-914) H 11/15/17 11:45 TSH 0.99 uIU/ml (0.358-3.74) 11/12/17 06:05 Urine Color Yellow 11/11/17 23:49 Urine Appearance Clear 11/11/17 23:49 Urine pH 7.0 (5.0-8.0) 11/11/17 23:49 Ur Specific [place] 1.004 (1.001-1.035) 11/11/17 23:49 Urine Protein Negative (NEGATIVE) 11/11/17 23:49 Urine Glucose (UA) Negative (NEGATIVE) 11/11/17 23:49 Urine Ketones Trace (NEGATIVE) H 11/11/17 23:49 Urine Blood 1+ (NEGATIVE) H 11/11/17 23:49 Urine Nitrite Negative (NEGATIVE) 11/11/17 23:49 Urine Bilirubin Negative (<2.0 mg/dL) 11/11/17 23:49 Urine Urobilinogen 4.0 e.u/dl mg/dL (0.2-1.0) H 11/11/17 23:49 Ur Leukocyte Esterase 1+ (NEGATIVE) H 11/11/17 23:49 Urine WBC (Auto) 12 /hpf (3-5) 11/11/17 23:49 Urine RBC (Auto) 1 /hpf (0-3) 11/11/17 23:49 Ur Epithelial Cells Rare /HPF (FEW) 11/11/17 23:49 Urine Bacteria Many /hpf (NONE SEEN) 11/11/17 23:49 Stool Occult Blood Negative (NEGATIVE) 11/12/17 09:23 Opiates Screen Negative ng/ml (HVBQWI=367) 11/12/17 08:30 Methadone Screen Negative ng/ml (KLSXJF=378) 11/12/17 08:30 Barbiturate Screen Negative ng/ml (MGNMPA=030) 11/12/17 08:30 Phencyclidine Screen Negative ng/ml (CUTOFF=25) 11/12/17 08:30 Ur Amphetamines Screen Negative ng/ml (AOEISZ=125) 11/12/17 08:30 MDMA (Ecstasy) Screen Negative ng/ml (COZPNZ=128) 11/12/17 08:30 Benzodiazepines Screen Negative ng/ml (QQCAOW=721) 11/12/17 08:30 Cocaine Screen Negative ng/ml (HEMYPJ=868) 11/12/17 08:30 U Marijuana (THC) Screen Negative ng/ml (CUTOFF=50) 11/12/17 08:30 Alcohol, Quantitative 322.36 mg/dL (0.0-5.0) H* 11/11/17 22:56 Hep A IgM Ab Confirm Negative (Negative) 11/12/17 06:05 Hepatitis A Ab Total Positive (Negative) H 11/12/17 06:05 Hep Bs Antigen Negative (Negative) 11/12/17 06:05 Hep Bs Antibody Reactive (.) 11/12/17 06:05 Hep B Core Total Ab Negative (Negative) 11/12/17 06:05 Blood Type O NEGATIVE 11/11/17 23:43 Antibody Screen Negative 11/11/17 23:43 Crossmatch See Detail 11/11/17 23:43 Problem List - Problems (1) Acute alcohol intoxication Code(s): F10.929 - ALCOHOL USE, UNSPECIFIED WITH INTOXICATION, UNSPECIFIED (2) Thrombocytopenia Code(s): D69.6 - THROMBOCYTOPENIA, UNSPECIFIED (3) Advanced cirrhosis of liver Code(s): K74.60 - UNSPECIFIED CIRRHOSIS OF LIVER (4) Alcoholic cirrhosis of liver Code(s): K70.30 - ALCOHOLIC CIRRHOSIS OF LIVER WITHOUT ASCITES Qualifiers: Ascites presence: with ascites Qualified Code(s): K70.31 - Alcoholic cirrhosis of liver with ascites Assessment/Plan Reduce lactulose to 20 mg/day, or 4 bms/day. Vaccinate against HBV, (1st injection ordered). Follow with PCP for the 2 and 3 injections. Rehab as per primary care. Follow up with GI as OP in 2-3 weeks for blood work and EGD. Complete alcohol avoidance discussed. The pt verbalized understanding and appears to be motivated.
[2017-11-19] MEDS: hydrOXYzine HCL 25 MG TABLET (FP) PO PRN (17:32)
[2017-11-19] MEDS ORDERED: HEPATITIS B VIRUS VACCINE-PF 20 MCG/1ML PRE-FILLED SYRINGE IM ONE (19:15)
[2017-11-19] MEDS: THIAMINE HCL 100 MG TABLET (FP) PO SCH (21:53)
[2017-11-19] MEDS: TEMAZEPAM 15 MG CAPSULE PO SCH (21:53)
[2017-11-20] MEDS: NAPH,MB-DB/K PH,MBDB POWDER PACKET PO SCH (06:42)
[2017-11-20] MEDS: LEVOTHYROXINE NA 100 MCG TABLET (FP) PO SCH (06:42)
[2017-11-20 07:13] LABS: EOS % 2.3 % (0-4.5); HEMATOCRIT 30.1 % (32.4-45.2); HEMOGLOBIN 10.1 GM/dL (10.7-15.3); LYMPH % 30.7 % (8-40); MCH 33.3 pg (25.7-33.7); MCHC 33.6 g/dl (32.0-36.0); MEAN CELL VOLUME 99.1 fl (80-96); MEAN PLT VOLUME 9.7 fl (7.5-11.1); MONO % 16.2 % (3.8-10.2); NEUT % 49.8 % (42.8-82.8); RBC 3.04 M/mm3 (3.60-5.2); WHITE BLOOD COUNT 5.1 K/mm3 (4.0-10.0)
[2017-11-20 07:32] LABS: ANION GAP 8 (8-16); BLOOD UREA NITROGEN 9 mg/dL (7-18); CALCIUM 8.8 mg/dL (8.5-10.1); CHLORIDE 108 mmol/L (98-107); CO2 27 mmol/L (21-32); CREATININE 1.1 mg/dL (0.55-1.02); GLUCOSE,RANDOM 119 mg/dL (74-106); MAGNESIUM 1.8 mg/dL (1.8-2.4); PHOSPHOROUS 4.3 mg/dL (2.5-4.9); POTASSIUM 4.1 mmol/L (3.5-5.1); SODIUM 143 mmol/L (136-145)
[2017-11-20 07:36] LABS: PLATELET COUNT 36 K/MM3 (134-434)
[2017-11-20] MEDS ORDERED: PT OWN MED DRAWER 7, Y5N ONE ×3 (09:26→12:12)
--- NOTE | 2017-11-20 09:59 | PN ---
Progress Note (short form) - Note Progress Note: Appears overall better. No CP or SOB. No acute events overnight. Intake & Output 11/17/17 11/18/17 11/19/17 11/20/17 23:59 23:59 23:59 23:59 Intake Total 1039 740 970 Output Total 450 Balance 589 740 970 Weight 168 lb 5 oz 173 lb Last Vital Signs Temp Pulse Resp BP Pulse Ox 98.4 F 63 16 115/57 99 11/20/17 05:00 11/20/17 05:00 11/20/17 05:00 11/20/17 05:00 11/18/17 21:00 Active Medications Artificial Tears (Artificial Tears) 1 drop OU BID PRN PRN Reason: DRY EYES Folic Acid (Folic Acid -) 1 mg PO DAILY [facility] Last Admin: 11/19/17 11:00 Dose: 1 mg Hydroxyzine HCl (Atarax -) 25 mg PO Q8H PRN PRN Reason: FOR ITCHING Last Admin: 11/19/17 17:32 Dose: 25 mg IV Flush (Picc Line Flush) 8 ml IVPUSH PRN PRN PRN Reason: Protocol Ertapenem 1 gm/ Sodium (Chloride) 100 mls @ 200 mls/hr IVPB DAILY [facility] PRN Reason: Protocol Last Admin: 11/19/17 10:59 Dose: 200 mls/hr Lactulose (Cephulac (Oral Use)) 20 gm PO DAILY [facility] Levothyroxine Sodium (Synthroid -) 100 mcg PO DAILY@0700 [facility] Last Admin: 11/20/17 06:42 Dose: 100 mcg Magnesium Oxide (Mag-Ox -) 400 mg PO BID [facility] Last Admin: 11/19/17 21:53 Dose: 400 mg Pantoprazole Sodium (Protonix -) 40 mg PO BID [facility] Last Admin: 11/19/17 21:53 Dose: 40 mg Potassium Phos/Sodium Phos (Phos-Nak Packet -) 1 packet PO TID [facility] Last Admin: 11/20/17 06:42 Dose: 1 packet Multivit/Folic Acid/Iron ( Vitamins (Sjr) -) 1 tab PO DAILY [facility] Last Admin: 11/19/17 11:01 Dose: 1 tab Rifaximin (Xifaxan -) 550 mg PO BID [facility] Last Admin: 11/19/17 21:53 Dose: 550 mg Temazepam (Restoril -) 15 mg PO HS [facility] Last Admin: 11/19/17 21:53 Dose: 15 mg Thiamine HCl (Vitamin B1 -) 100 mg PO HS [facility] Last Admin: 11/19/17 21:53 Dose: 100 mg Gen: awake, NAD Heart: regular Lung: decreased breath sounds at the bases Abd: soft, nontender Ext: no edema Laboratory Results - last 24 hr 11/20/17 11/20/17 06:00 06:00 WBC 5.1 RBC 3.04 L Hgb 10.1 L Hct 30.1 L MCV 99.1 H MCH 33.3 MCHC 33.6 RDW 19.0 H Plt Count 36 L* MPV 9.7 Neutrophils % 49.8 Lymphocytes % 30.7 D Monocytes % 16.2 H Eosinophils % 2.3 Basophils % 1.0 Sodium 143 Potassium 4.1 Chloride 108 H Carbon Dioxide 27 Anion Gap 8 BUN 9 Creatinine 1.1 H Random Glucose 119 H Calcium 8.8 Phosphorus 4.3 Magnesium 1.8 ASSESSMENT AND PLAN: Alcohol Intoxication/Abuse Pancytopenia/Anemia/Severe Thrombocytopenia Liver Cirrhosis Splenomegaly Coagulopathy - Normal transfusion thresholds - ABX per ID - Rifaximin - PPI Dr Melendez
[2017-11-20] MEDS: LACTULOSE 20 GM/30 ML UDC (FOR ORAL USE ONLY) PO SCH (11:27)
[2017-11-20] MEDS: PRENATAL VITAMINS W/ FOLIC ACID TABLET (FP) PO SCH (11:27)
[2017-11-20] MEDS: MAGNESIUM OXIDE 400 MG TABLET (FP) PO SCH ×2 (11:28→21:14)
[2017-11-20] MEDS: FOLIC ACID 1 MG TABLET (FP) PO SCH (11:28)
[2017-11-20] MEDS: RIFAXIMIN 550 MG TABLET (UD) PO SCH ×2 (11:28→21:14)
[2017-11-20] MEDS: PANTOPRAZOLE 40 MG TABLET (FP) PO SCH ×2 (11:28→21:14)
[2017-11-20] MEDS: ERTAPENEM SODIUM 1 GM in SODIUM CHLORIDE 100 ML IVPB SCH (11:28)
[2017-11-20] MEDS ORDERED: MAGNESIUM OXIDE 400 MG TABLET (FP) PO ONE (11:31)
--- NOTE | 2017-11-20 11:45 | PN ---
Progress Note, Physician Chief Complaint: Pt lying in bed in no acute distress. reports tremors. Denies any chest pain, n /v/d, unilateral weakness. - Current Medication List Current Medications: Active Medications Artificial Tears (Artificial Tears) 1 drop OU BID PRN PRN Reason: DRY EYES Folic Acid (Folic Acid -) 1 mg PO DAILY [facility] Last Admin: 11/20/17 11:28 Dose: 1 mg Hydroxyzine HCl (Atarax -) 25 mg PO Q8H PRN PRN Reason: FOR ITCHING Last Admin: 11/19/17 17:32 Dose: 25 mg IV Flush (Picc Line Flush) 8 ml IVPUSH PRN PRN PRN Reason: Protocol Ertapenem 1 gm/ Sodium (Chloride) 100 mls @ 200 mls/hr IVPB DAILY [facility] PRN Reason: Protocol Last Admin: 11/20/17 11:28 Dose: 200 mls/hr Lactulose (Cephulac (Oral Use)) 20 gm PO DAILY [facility] Last Admin: 11/20/17 11:27 Dose: 20 gm Levothyroxine Sodium (Synthroid -) 100 mcg PO DAILY@0700 [facility] Last Admin: 11/20/17 06:42 Dose: 100 mcg Magnesium Oxide (Mag-Ox -) 400 mg PO BID [facility] Last Admin: 11/20/17 11:28 Dose: 400 mg Pantoprazole Sodium (Protonix -) 40 mg PO BID [facility] Last Admin: 11/20/17 11:28 Dose: 40 mg Multivit/Folic Acid/Iron ( Vitamins (Sjr) -) 1 tab PO DAILY [facility] Last Admin: 11/20/17 11:27 Dose: 1 tab Rifaximin (Xifaxan -) 550 mg PO BID [facility] Last Admin: 11/20/17 11:28 Dose: 550 mg Temazepam (Restoril -) 15 mg PO HS [facility] Last Admin: 11/19/17 21:53 Dose: 15 mg Thiamine HCl (Vitamin B1 -) 100 mg PO HS [facility] Last Admin: 11/19/17 21:53 Dose: 100 mg - Objective Vital Signs: Vital Signs Temperature 98.4 F 11/20/17 05:00 Pulse Rate 63 11/20/17 05:00 Respiratory Rate 16 11/20/17 05:00 Blood Pressure 115/57 11/20/17 05:00 O2 Sat by Pulse Oximetry (%) 99 11/18/17 21:00 Constitutional: Yes: Well Nourished, No Distress Cardiovascular: Yes: Regular Rate and Rhythm. No: Gallop, Murmur, Rub Respiratory: Yes: WNL, Regular, CTA Bilaterally. No: Accessory Muscle Use, SOB , Tachypnea, Wheezes Gastrointestinal: Yes: WNL, Normal Bowel Sounds, Soft, Abdomen, Obese. 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) Labs: CBC, BMP 11/20/17 06:00 11/20/17 06:00 INR, PTT INR 1.58 (0.82-1.09) H 11/19/17 06:20 Fibrinogen 181.0 mg/dL (238-498) L 11/15/17 07:05 Problem List - Problems (1) Alcoholic cirrhosis of liver Code(s): K70.30 - ALCOHOLIC CIRRHOSIS OF LIVER WITHOUT ASCITES Qualifiers: Ascites presence: with ascites Qualified Code(s): K70.31 - Alcoholic cirrhosis of liver with ascites (2) Pancytopenia Code(s): D61.818 - OTHER PANCYTOPENIA (3) Alcohol dependence with uncomplicated withdrawal Code(s): F10.230 - ALCOHOL DEPENDENCE WITH WITHDRAWAL, UNCOMPLICATED (4) Hypokalemia Code(s): E87.6 - HYPOKALEMIA (5) Hypomagnesemia Code(s): E83.42 - HYPOMAGNESEMIA (6) Hypophosphatemia Code(s): E83.39 - OTHER DISORDERS OF PHOSPHORUS METABOLISM (7) Splenomegaly Code(s): R16.1 - SPLENOMEGALY, NOT ELSEWHERE CLASSIFIED (8) Cocaine abuse Code(s): F14.10 - COCAINE ABUSE, UNCOMPLICATED (9) Hypothyroid Code(s): E03.9 - HYPOTHYROIDISM, UNSPECIFIED Qualifiers: (10) Hyperbilirubinemia Code(s): E80.6 - OTHER DISORDERS OF BILIRUBIN METABOLISM (11) Falling episodes Code(s): R29.6 - REPEATED FALLS (12) UTI (urinary tract infection) Code(s): N39.0 - URINARY TRACT INFECTION, SITE NOT SPECIFIED (13) Hepatic encephalopathy Code(s): K72.90 - HEPATIC FAILURE, UNSPECIFIED WITHOUT COMA Assessment/Plan (1) Alcoholic cirrhosis of liver Assessment/Plan: admitted w/ severe pancytopenia abd CT w/ cirrhosis, splenomegaly heme-occult neg nadolol ammonia level elevated lactulose titrate 4bms/day /rifaximin case discussed with GI, plan for egd outpt 2-3 weeks per Code(s): K70.30 - ALCOHOLIC CIRRHOSIS OF LIVER WITHOUT ASCITES Qualifiers: Ascites presence: with ascites Qualified Code(s): K70.31 - Alcoholic cirrhosis of liver with ascites (2) Pancytopenia Assessment/Plan: as above, h/h stable plt in 30s transfuse plts per hematology monitor cbc PPI discussed with hematology, pt cleared from hematology stand point Code(s): D61.818 - OTHER PANCYTOPENIA (3) Alcohol dependence with uncomplicated withdrawal Assessment/Plan: Blood Alcohol level- 322, CIWA-2 completed librium detox replete electrolytes as needed thiamine/folic acid nutrition consult [facility]-detox team following Dispo: possibly outpt rehab when clinically stable Code(s): F10.230 - ALCOHOL DEPENDENCE WITH WITHDRAWAL, UNCOMPLICATED (4) Hypokalemia Assessment/Plan: as above replete as needed monitor bmp Code(s): E87.6 - HYPOKALEMIA (5) Hypomagnesemia Assessment/Plan: repleted monitor bmp Code(s): E83.42 - HYPOMAGNESEMIA (6) Hypophosphatemia Assessment/Plan: improved Code(s): E83.39 - OTHER DISORDERS OF PHOSPHORUS METABOLISM (7) Splenomegaly Assessment/Plan: secondary to portal htn will monitor Code(s): R16.1 - SPLENOMEGALY, NOT ELSEWHERE CLASSIFIED (8) Cocaine abuse Assessment/Plan: urine neg detox plan as above Code(s): F14.10 - COCAINE ABUSE, UNCOMPLICATED (9) Hypothyroid Assessment/Plan: stable continue levothyroixine Code(s): E03.9 - HYPOTHYROIDISM, UNSPECIFIED Qualifiers: (10) Hyperbilirubinemia Assessment/Plan: secondary to advanced liver disease hepatic panel reviewed Code(s): E80.6 - OTHER DISORDERS OF BILIRUBIN METABOLISM (11) Falling episodes Assessment/Plan: hx of falls secondary to alcohol intoxication head CT neg abd/pelvis ct chronic T11/L1 compression fractures fall risk precautions Code(s): R29.6 - REPEATED FALLS (12) UTI (urinary tract infection) Assessment/Plan: UC grew ecoli,esbl prod Ertapenem day 7 IR for PICC upon d/c ID following Code(s): N39.0 - URINARY TRACT INFECTION, SITE NOT SPECIFIED (13) Hepatic encephalopathy Assessment/Plan: NH4 elevate lactulose/rifaximine Code(s): K72.90 - HEPATIC FAILURE, UNSPECIFIED WITHOUT COMA Dispo: pt requires iv antibxx 1 week. AWA sent to Insurance. Awaiting SNF placement. Considering pt's social history, cannot safely discharge pt from hospital to home with PICC. Pt needs SNF to complete iv antibiotic course.
[2017-11-20] MEDS: hydrOXYzine HCL 25 MG TABLET (FP) PO PRN (14:27)
--- NOTE | 2017-11-20 14:52 | PN ---
Progress Note, Physician History of Present Illness: no acute events patient stable - Current Medication List Current Medications: Active Medications Artificial Tears (Artificial Tears) 1 drop OU BID PRN PRN Reason: DRY EYES Folic Acid (Folic Acid -) 1 mg PO DAILY [facility] Last Admin: 11/20/17 11:28 Dose: 1 mg Hydroxyzine HCl (Atarax -) 25 mg PO Q8H PRN PRN Reason: FOR ITCHING Last Admin: 11/20/17 14:27 Dose: 25 mg IV Flush (Picc Line Flush) 8 ml IVPUSH PRN PRN PRN Reason: Protocol Ertapenem 1 gm/ Sodium (Chloride) 100 mls @ 200 mls/hr IVPB DAILY [facility] PRN Reason: Protocol Last Admin: 11/20/17 11:28 Dose: 200 mls/hr Lactulose (Cephulac (Oral Use)) 20 gm PO DAILY [facility] Last Admin: 11/20/17 11:27 Dose: 20 gm Levothyroxine Sodium (Synthroid -) 100 mcg PO DAILY@0700 [facility] Last Admin: 11/20/17 06:42 Dose: 100 mcg Magnesium Oxide (Mag-Ox -) 400 mg PO BID [facility] Last Admin: 11/20/17 11:28 Dose: 400 mg Pantoprazole Sodium (Protonix -) 40 mg PO BID [facility] Last Admin: 11/20/17 11:28 Dose: 40 mg Multivit/Folic Acid/Iron ( Vitamins (Sjr) -) 1 tab PO DAILY [facility] Last Admin: 11/20/17 11:27 Dose: 1 tab Rifaximin (Xifaxan -) 550 mg PO BID [facility] Last Admin: 11/20/17 11:28 Dose: 550 mg Temazepam (Restoril -) 15 mg PO [facility] Last Admin: 11/19/17 21:53 Dose: 15 mg Thiamine HCl (Vitamin B1 -) 100 mg PO HS [facility] Last Admin: 11/19/17 21:53 Dose: 100 mg - Objective Vital Signs: Vital Signs Temperature 98.1 F 11/20/17 09:00 Pulse Rate 78 11/20/17 09:00 Respiratory Rate 18 11/20/17 09:00 Blood Pressure 122/71 11/20/17 09:00 O2 Sat by Pulse Oximetry (%) 99 11/18/17 21:00 Constitutional: Yes: No Distress, Calm Eyes: Yes: Sclera Icterus (improved) Cardiovascular: Yes: Regular Rate and Rhythm Respiratory: Yes: Regular, CTA Bilaterally Gastrointestinal: Yes: Normal Bowel Sounds, Soft Musculoskeletal: Yes: WNL Extremities: Yes: WNL Neurological: Yes: Alert Psychiatric: Yes: Alert Labs: CBC, BMP 11/20/17 06:00 11/20/17 06:00 INR, PTT INR 1.58 (0.82-1.09) H 11/19/17 06:20 Fibrinogen 181.0 mg/dL (238-498) L 11/15/17 07:05 Assessment/Plan Assessment/Plan (1) Alcoholic cirrhosis of liver Code(s): K70.30 - ALCOHOLIC CIRRHOSIS OF LIVER WITHOUT ASCITES Qualifiers: Ascites presence: with ascites Qualified Code(s): K70.31 - Alcoholic cirrhosis of liver with ascites (2) Pancytopenia Code(s): D61.818 - OTHER PANCYTOPENIA (3) Alcohol dependence with uncomplicated withdrawal Code(s): F10.230 - ALCOHOL DEPENDENCE WITH WITHDRAWAL, UNCOMPLICATED (4) Hypokalemia Code(s): E87.6 - HYPOKALEMIA (5) Hypomagnesemia Code(s): E83.42 - HYPOMAGNESEMIA (6) Hypophosphatemia Code(s): E83.39 - OTHER DISORDERS OF PHOSPHORUS METABOLISM (7) Splenomegaly Code(s): R16.1 - SPLENOMEGALY, NOT ELSEWHERE CLASSIFIED (8) Coagulopathy (9) Hypothyroid Code(s): E03.9 - HYPOTHYROIDISM, UNSPECIFIED Qualifiers: (10) Falling episodes Code(s): R29.6 - REPEATED FALLS (11) UTI (urinary tract infection) Code(s): N39.0 - URINARY TRACT INFECTION, SITE NOT SPECIFIED (12) Hepatic encephalopathy Code(s): K72.90 - HEPATIC FAILURE, UNSPECIFIED WITHOUT COMA plan' continue as per detox continue abx nutrition rest as per the team physio
[2017-11-20] MEDS: THIAMINE HCL 100 MG TABLET (FP) PO SCH (21:14)
[2017-11-20] MEDS: TEMAZEPAM 15 MG CAPSULE PO SCH (21:14)
[2017-11-21] MEDS: LEVOTHYROXINE NA 100 MCG TABLET (FP) PO SCH (06:11)
[2017-11-21 07:52] LABS: BASO % 0.8 % (0-2.0); EOS % 1.8 % (0-4.5); HEMATOCRIT 29.5 % (32.4-45.2); HEMOGLOBIN 10.1 GM/dL (10.7-15.3); LYMPH % 32.4 % (8-40); MCH 33.4 pg (25.7-33.7); MCHC 34.2 g/dl (32.0-36.0); MEAN CELL VOLUME 97.4 fl (80-96); MEAN PLT VOLUME 9.8 fl (7.5-11.1); MONO % 12.6 % (3.8-10.2); NEUT % 52.4 % (42.8-82.8); PLATELET COUNT 56 K/MM3 (134-434); RBC 3.03 M/mm3 (3.60-5.2); RDW 18.3 % (11.6-15.6); WHITE BLOOD COUNT 5.2 K/mm3 (4.0-10.0)
[2017-11-21 08:21] LABS: ANION GAP 10 (8-16); BLOOD UREA NITROGEN 9 mg/dL (7-18); CALCIUM 9.4 mg/dL (8.5-10.1); CHLORIDE 103 mmol/L (98-107); CO2 27 mmol/L (21-32); CREATININE 1.1 mg/dL (0.55-1.02); GLUCOSE,RANDOM 121 mg/dL (74-106); SODIUM 140 mmol/L (136-145)
[2017-11-21] MEDS ORDERED: PT OWN MED DRAWER 7, Y5N ONE ×2 (09:57→10:01)
--- NOTE | 2017-11-21 09:57 | PN ---
Progress Note, Physician Chief Complaint: Pt lying in bed in no acute distress. reports tremors. reports she has some "liver pain" today. Denies any chest pain, n/v/d, unilateral weakness. - Current Medication List Current Medications: Active Medications Artificial Tears (Artificial Tears) 1 drop OU BID PRN PRN Reason: DRY EYES Folic Acid (Folic Acid -) 1 mg PO DAILY [facility] Last Admin: 11/20/17 11:28 Dose: 1 mg Hydroxyzine HCl (Atarax -) 25 mg PO Q8H PRN PRN Reason: FOR ITCHING Last Admin: 11/20/17 14:27 Dose: 25 mg IV Flush (Picc Line Flush) 8 ml IVPUSH PRN PRN PRN Reason: Protocol Ertapenem 1 gm/ Sodium (Chloride) 100 mls @ 200 mls/hr IVPB DAILY [facility] PRN Reason: Protocol Last Admin: 11/20/17 11:28 Dose: 200 mls/hr Lactulose (Cephulac (Oral Use)) 20 gm PO DAILY [facility] Last Admin: 11/20/17 11:27 Dose: 20 gm Levothyroxine Sodium (Synthroid -) 100 mcg PO DAILY@0700 [facility] Last Admin: 11/21/17 06:11 Dose: 100 mcg Magnesium Oxide (Mag-Ox -) 400 mg PO BID [facility] Last Admin: 11/20/17 21:14 Dose: 400 mg Pantoprazole Sodium (Protonix -) 40 mg PO BID [facility] Last Admin: 11/20/17 21:14 Dose: 40 mg Multivit/Folic Acid/Iron ( Vitamins (Sjr) -) 1 tab PO DAILY [facility] Last Admin: 11/20/17 11:27 Dose: 1 tab Rifaximin (Xifaxan -) 550 mg PO BID [facility] Last Admin: 11/20/17 21:14 Dose: 550 mg Temazepam (Restoril -) 15 mg PO HS [facility] Last Admin: 11/20/17 21:14 Dose: 15 mg Thiamine HCl (Vitamin B1 -) 100 mg PO HS [facility] Last Admin: 11/20/17 21:14 Dose: 100 mg - Objective Vital Signs: Vital Signs Temperature 98.1 F 11/21/17 06:00 Pulse Rate 75 11/21/17 06:00 Respiratory Rate 18 11/21/17 06:00 Blood Pressure 98/53 11/21/17 06:00 O2 Sat by Pulse Oximetry (%) 96 11/20/17 21:00 Constitutional: Yes: Well Nourished, No Distress Cardiovascular: Yes: Regular Rate and Rhythm. No: Bruit, Murmur, Rub Respiratory: Yes: WNL, Regular, CTA Bilaterally. No: SOB, Tachypnea, Wheezes Gastrointestinal: Yes: Normal Bowel Sounds, Soft, Abdomen, Obese, Tenderness ( ruq). No: Distention Genitourinary: Yes: Other (frequency) Edema: No Neurological: Yes: Alert, Oriented, Tremors Psychiatric: Yes: Alert, Oriented Labs: CBC, BMP 11/21/17 06:50 11/21/17 07:07 INR, PTT INR 1.58 (0.82-1.09) H 11/19/17 06:20 Fibrinogen 181.0 mg/dL (238-498) L 11/15/17 07:05 Problem List - Problems (1) Alcoholic cirrhosis of liver Code(s): K70.30 - ALCOHOLIC CIRRHOSIS OF LIVER WITHOUT ASCITES Qualifiers: Ascites presence: with ascites Qualified Code(s): K70.31 - Alcoholic cirrhosis of liver with ascites (2) Pancytopenia Code(s): D61.818 - OTHER PANCYTOPENIA (3) Alcohol dependence with uncomplicated withdrawal Code(s): F10.230 - ALCOHOL DEPENDENCE WITH WITHDRAWAL, UNCOMPLICATED (4) Hypokalemia Code(s): E87.6 - HYPOKALEMIA (5) Hypomagnesemia Code(s): E83.42 - HYPOMAGNESEMIA (6) Hypophosphatemia Code(s): E83.39 - OTHER DISORDERS OF PHOSPHORUS METABOLISM (7) Splenomegaly Code(s): R16.1 - SPLENOMEGALY, NOT ELSEWHERE CLASSIFIED (8) Cocaine abuse Code(s): F14.10 - COCAINE ABUSE, UNCOMPLICATED (9) Hypothyroid Code(s): E03.9 - HYPOTHYROIDISM, UNSPECIFIED Qualifiers: (10) Hyperbilirubinemia Code(s): E80.6 - OTHER DISORDERS OF BILIRUBIN METABOLISM (11) Falling episodes Code(s): R29.6 - REPEATED FALLS (12) UTI (urinary tract infection) Code(s): N39.0 - URINARY TRACT INFECTION, SITE NOT SPECIFIED (13) Hepatic encephalopathy Code(s): K72.90 - HEPATIC FAILURE, UNSPECIFIED WITHOUT COMA Assessment/Plan (1) Alcoholic cirrhosis of liver Assessment/Plan: admitted w/ severe pancytopenia abd CT w/ cirrhosis, splenomegaly ruq tenderness upon palpation heme-occult neg nadolol ammonia level elevation trending down lactulose/rifaximin case discussed with GI, plan for egd outpt 2-3 weeks per Code(s): K70.30 - ALCOHOLIC CIRRHOSIS OF LIVER WITHOUT ASCITES Qualifiers: Ascites presence: with ascites Qualified Code(s): K70.31 - Alcoholic cirrhosis of liver with ascites (2) Pancytopenia Assessment/Plan: as above, h/h stable plt normal transf threshold transfuse plts per hematology monitor cbc PPI discussed with hematology, pt cleared from hematology stand point Code(s): D61.818 - OTHER PANCYTOPENIA (3) Alcohol dependence with uncomplicated withdrawal Assessment/Plan: Blood Alcohol level- 322, CIWA-2 completed librium detox replete electrolytes as needed thiamine/folic acid nutrition consult [facility]-detox team following Dispo: possibly outpt rehab when clinically stable Code(s): F10.230 - ALCOHOL DEPENDENCE WITH WITHDRAWAL, UNCOMPLICATED (4) Hypokalemia Assessment/Plan: as above replete as needed monitor bmp Code(s): E87.6 - HYPOKALEMIA (5) Hypomagnesemia Assessment/Plan: repleted monitor bmp Code(s): E83.42 - HYPOMAGNESEMIA (6) Hypophosphatemia Assessment/Plan: improved Code(s): E83.39 - OTHER DISORDERS OF PHOSPHORUS METABOLISM (7) Splenomegaly Assessment/Plan: secondary to portal htn will monitor Code(s): R16.1 - SPLENOMEGALY, NOT ELSEWHERE CLASSIFIED (8) Cocaine abuse Assessment/Plan: urine neg detox plan as above Code(s): F14.10 - COCAINE ABUSE, UNCOMPLICATED (9) Hypothyroid Assessment/Plan: stable continue levothyroixine Code(s): E03.9 - HYPOTHYROIDISM, UNSPECIFIED Qualifiers: (10) Hyperbilirubinemia Assessment/Plan: secondary to advanced liver disease hepatic panel reviewed Code(s): E80.6 - OTHER DISORDERS OF BILIRUBIN METABOLISM (11) Falling episodes Assessment/Plan: hx of falls secondary to alcohol intoxication head CT neg abd/pelvis ct chronic T11/L1 compression fractures fall risk precautions Code(s): R29.6 - REPEATED FALLS (12) UTI (urinary tract infection) Assessment/Plan: UC grew ecoli,esbl prod Ertapenem day 03/10 IR for PICC upon d/c ID following Code(s): N39.0 - URINARY TRACT INFECTION, SITE NOT SPECIFIED (13) Hepatic encephalopathy Assessment/Plan: NH4 elevation lactulose/rifaximine Code(s): K72.90 - HEPATIC FAILURE, UNSPECIFIED WITHOUT COMA Dispo: pt requires iv antibxx 1 week. AWA sent to [facility]. Awaiting SNF placement. Considering pt's social history, cannot safely discharge pt from hospital to home with PICC. Pt needs SNF to complete iv antibiotic course.
[2017-11-21] MEDS: PANTOPRAZOLE 40 MG TABLET (FP) PO SCH ×2 (10:23→21:54)
[2017-11-21] MEDS: hydrOXYzine HCL 25 MG TABLET (FP) PO PRN (10:23)
[2017-11-21] MEDS: RIFAXIMIN 550 MG TABLET (UD) PO SCH (10:24)
[2017-11-21] MEDS: FOLIC ACID 1 MG TABLET (FP) PO SCH (10:24)
[2017-11-21] MEDS: ERTAPENEM SODIUM 1 GM in SODIUM CHLORIDE 100 ML IVPB SCH (10:25)
[2017-11-21] MEDS: PRENATAL VITAMINS W/ FOLIC ACID TABLET (FP) PO SCH (10:25)
[2017-11-21] MEDS: LACTULOSE 20 GM/30 ML UDC (FOR ORAL USE ONLY) PO SCH (10:26)
[2017-11-21] MEDS: MAGNESIUM OXIDE 400 MG TABLET (FP) PO SCH ×2 (10:26→21:54)
--- NOTE | 2017-11-21 13:16 | PN ---
Progress Note, Physician History of Present Illness: no new issues stable weakness - Current Medication List Current Medications: Active Medications Artificial Tears (Artificial Tears) 1 drop OU BID PRN PRN Reason: DRY EYES Last Admin: 11/21/17 10:19 Dose: 1 drop Folic Acid (Folic Acid -) 1 mg PO DAILY [facility] Last Admin: 11/21/17 10:24 Dose: 1 mg Hydroxyzine HCl (Atarax -) 25 mg PO Q8H PRN PRN Reason: FOR ITCHING Last Admin: 11/21/17 10:23 Dose: 25 mg IV Flush (Picc Line Flush) 8 ml IVPUSH PRN PRN PRN Reason: Protocol Ertapenem 1 gm/ Sodium (Chloride) 100 mls @ 200 mls/hr IVPB DAILY [facility] PRN Reason: Protocol Last Admin: 11/21/17 10:25 Dose: 200 mls/hr Lactulose (Cephulac (Oral Use)) 20 gm PO DAILY [facility] Last Admin: 11/21/17 10:26 Dose: 20 gm Levothyroxine Sodium (Synthroid -) 100 mcg PO DAILY@0700 [facility] Last Admin: 11/21/17 06:11 Dose: 100 mcg Magnesium Oxide (Mag-Ox -) 400 mg PO BID [facility] Last Admin: 11/21/17 10:26 Dose: 400 mg Pantoprazole Sodium (Protonix -) 40 mg PO BID [facility] Last Admin: 11/21/17 10:23 Dose: 40 mg Multivit/Folic Acid/Iron ( Vitamins (Sjr) -) 1 tab PO DAILY [facility] Last Admin: 11/21/17 10:25 Dose: 1 tab Rifaximin (Xifaxan -) 550 mg PO BID [facility] Last Admin: 11/21/17 10:24 Dose: 550 mg Temazepam (Restoril -) 15 mg PO HS [facility] Last Admin: 11/20/17 21:14 Dose: 15 mg Thiamine HCl (Vitamin B1 -) 100 mg PO HS [facility] Last Admin: 11/20/17 21:14 Dose: 100 mg - Objective Vital Signs: Vital Signs Temperature 98.1 F 11/21/17 06:00 Pulse Rate 75 11/21/17 06:00 Respiratory Rate 18 11/21/17 06:00 Blood Pressure 98/53 11/21/17 06:00 O2 Sat by Pulse Oximetry (%) 96 11/20/17 21:00 Constitutional: Yes: No Distress, Calm Eyes: Yes: Sclera Icterus Cardiovascular: Yes: Regular Rate and Rhythm Respiratory: Yes: Regular, CTA Bilaterally Gastrointestinal: Yes: Normal Bowel Sounds, Soft Musculoskeletal: Yes: WNL Extremities: Yes: WNL Neurological: Yes: Alert Psychiatric: Yes: Alert Labs: CBC, BMP 11/21/17 06:50 11/21/17 07:07 INR, PTT INR 1.58 (0.82-1.09) H 11/19/17 06:20 Fibrinogen 181.0 mg/dL (238-498) L 11/15/17 07:05 Assessment/Plan Assessment/Plan (1) Alcoholic cirrhosis of liver Code(s): K70.30 - ALCOHOLIC CIRRHOSIS OF LIVER WITHOUT ASCITES Qualifiers: Ascites presence: with ascites Qualified Code(s): K70.31 - Alcoholic cirrhosis of liver with ascites (2) Pancytopenia Code(s): D61.818 - OTHER PANCYTOPENIA (3) Alcohol dependence with uncomplicated withdrawal Code(s): F10.230 - ALCOHOL DEPENDENCE WITH WITHDRAWAL, UNCOMPLICATED (4) Hypokalemia Code(s): E87.6 - HYPOKALEMIA (5) Hypomagnesemia Code(s): E83.42 - HYPOMAGNESEMIA (6) Hypophosphatemia Code(s): E83.39 - OTHER DISORDERS OF PHOSPHORUS METABOLISM (7) Splenomegaly Code(s): R16.1 - SPLENOMEGALY, NOT ELSEWHERE CLASSIFIED (8) Coagulopathy (9) Hypothyroid Code(s): E03.9 - HYPOTHYROIDISM, UNSPECIFIED Qualifiers: (10) Falling episodes Code(s): R29.6 - REPEATED FALLS (11) UTI (urinary tract infection) Code(s): N39.0 - URINARY TRACT INFECTION, SITE NOT SPECIFIED (12) Hepatic encephalopathy Code(s): K72.90 - HEPATIC FAILURE, UNSPECIFIED WITHOUT COMA plan' continue as per detox continue abx complete the abx course nutrition rest as per the team physio
[2017-11-21] MEDS: THIAMINE HCL 100 MG TABLET (FP) PO SCH (21:54)
[2017-11-21] MEDS: TEMAZEPAM 15 MG CAPSULE PO SCH (21:54)
[2017-11-22] MEDS: LEVOTHYROXINE NA 100 MCG TABLET (FP) PO SCH (06:03)
[2017-11-22 07:43] LABS: BASO % 1.3 % (0-2.0); EOS % 1.7 % (0-4.5); LYMPH % 30.1 % (8-40); MCH 33.7 pg (25.7-33.7); MCHC 34.3 g/dl (32.0-36.0); MEAN CELL VOLUME 98.2 fl (80-96); MEAN PLT VOLUME 10.3 fl (7.5-11.1); MONO % 10.4 % (3.8-10.2); NEUT % 56.5 % (42.8-82.8); PLATELET COUNT 59 K/MM3 (134-434); RBC 2.96 M/mm3 (3.60-5.2); RDW 18.3 % (11.6-15.6); WHITE BLOOD COUNT 5.2 K/mm3 (4.0-10.0)
[2017-11-22 08:54] LABS: CHLORIDE 103 mmol/L (98-107); POTASSIUM 3.7 mmol/L (3.5-5.1); SODIUM 139 mmol/L (136-145)
[2017-11-22 09:26] LABS: ANION GAP 12 (8-16); BLOOD UREA NITROGEN 9 mg/dL (7-18); CALCIUM 9.6 mg/dL (8.5-10.1); CO2 24 mmol/L (21-32); CREATININE 1.1 mg/dL (0.55-1.02); GLUCOSE,RANDOM 136 mg/dL (74-106); MAGNESIUM 1.7 mg/dL (1.8-2.4); PHOSPHOROUS 5.1 mg/dL (2.5-4.9)
[2017-11-22] MEDS: FOLIC ACID 1 MG TABLET (FP) PO SCH (10:25)
[2017-11-22] MEDS: LACTULOSE 20 GM/30 ML UDC (FOR ORAL USE ONLY) PO SCH (10:25)
[2017-11-22] MEDS: ERTAPENEM SODIUM 1 GM in SODIUM CHLORIDE 100 ML IVPB SCH (10:25)
[2017-11-22] MEDS: MAGNESIUM OXIDE 400 MG TABLET (FP) PO SCH ×2 (10:25→23:14)
[2017-11-22] MEDS: PRENATAL VITAMINS W/ FOLIC ACID TABLET (FP) PO SCH (10:26)
[2017-11-22] MEDS: PANTOPRAZOLE 40 MG TABLET (FP) PO SCH ×2 (10:26→23:14)
--- NOTE | 2017-11-22 16:35 | PN ---
Physical Exam: SUBJECTIVE: Patient seen and examined covering Patient is comfortable with no acute distress, no nausea or vomiting. As per patient started to drink when she was 44yo when she was going through Divorce. OBJECTIVE: Vital Signs Temperature 99 F 11/22/17 15:40 Pulse Rate 76 11/22/17 15:48 Respiratory Rate 22 11/22/17 15:40 Blood Pressure 116/58 11/22/17 15:40 O2 Sat by Pulse Oximetry (%) 99 11/22/17 15:48 GENERAL: The patient is awake, alert, and fully oriented, in no acute distress. HEAD: Normal with no signs of trauma. EYES: PERRL, extraocular movements intact, sclera anicteric, conjunctiva clear. ENT: Ears normal, oropharynx clear without exudates, moist mucous membranes. NECK: Trachea midline, full range of motion, supple. LUNGS: Breath sounds equal, clear to auscultation bilaterally, no wheezes, no crackles, no accessory muscle use. HEART: Regular rate and rhythm, S1, S2 without murmur, rub or gallop. ABDOMEN: Soft, nontender, nondistended, normoactive bowel sounds, no guarding, no rebound, positive for hepatosplenomegaly. EXTREMITIES: 2+ pulses, warm, well-perfused, no edema. NEUROLOGICAL: Cranial nerves II through XII grossly intact. Normal speech, gait not observed. PSYCH: Normal mood, normal affect. SKIN: Warm, dry, normal turgor, no rashes or lesions noted CBCD WBC 5.2 K/mm3 (4.0-10.0) 11/22/17 07:05 RBC 2.96 M/mm3 (3.60-5.2) L 11/22/17 07:05 Hgb 10.0 GM/dL (10.7-15.3) L 11/22/17 07:05 Hct 29.0 % (32.4-45.2) L 11/22/17 07:05 MCV 98.2 fl (80-96) H 11/22/17 07:05 MCHC 34.3 g/dl (32.0-36.0) 11/22/17 07:05 RDW 18.3 % (11.6-15.6) H 11/22/17 07:05 Plt Count 59 K/MM3 (134-434) L 11/22/17 07:05 MPV 10.3 fl (7.5-11.1) 11/22/17 07:05 CMP Sodium 139 mmol/L (136-145) 11/22/17 07:05 Potassium 3.7 mmol/L (3.5-5.1) 11/22/17 07:05 Chloride 103 mmol/L (98-107) 11/22/17 07:05 Carbon Dioxide 24 mmol/L (21-32) 11/22/17 07:05 Anion Gap 12 (8-16) 11/22/17 07:05 BUN 9 mg/dL (7-18) 11/22/17 07:05 Creatinine 1.1 mg/dL (0.55-1.02) H 11/22/17 07:05 Creat Clearance w eGFR 46.82 (>60) 11/18/17 06:20 Random Glucose 136 mg/dL (74-106) H 11/22/17 07:05 Calcium 9.6 mg/dL (8.5-10.1) 11/22/17 07:05 Total Bilirubin 2.2 mg/dL (0.2-1.0) H D 11/18/17 06:20 AST 49 U/L (15-37) H 11/18/17 06:20 ALT 17 U/L (12-78) 11/18/17 06:20 Alkaline Phosphatase 141 U/L (45-117) H 11/18/17 06:20 Total Protein 6.3 g/dl (6.4-8.2) L 11/18/17 06:20 Albumin 2.6 g/dl (3.4-5.0) L 11/18/17 06:20 CARDIAC ENZYMES Creatine Kinase 313 IU/L (26-192) H 11/12/17 18:00 Troponin I 0.06 ng/ml (0.00-0.05) H 11/13/17 05:32 Active Medications Generic Name Dose Route Start Last Admin Trade Name Freq PRN Reason Stop Dose Admin Artificial Tears 1 drop 11/17/17 12:46 11/21/17 10:19 Artificial Tears OU 1 drop BID PRN Administration DRY EYES Folic Acid 1 mg 11/14/17 10:00 11/22/17 10:25 Folic Acid - PO 1 mg DAILY [facility] Administration Hydroxyzine HCl 25 mg 11/13/17 14:52 11/21/17 10:23 Atarax - PO 25 mg Q8H PRN Administration FOR ITCHING IV Flush 8 ml 11/19/17 11:08 Picc Line Flush IVPUSH PRN PRN Protocol Ertapenem 1 gm/ Sodium 100 mls @ 200 mls/hr 11/14/17 15:00 11/22/17 10:25 Chloride IVPB 200 mls/hr DAILY [facility] Administration Protocol Lactulose 20 gm 11/20/17 10:00 11/22/17 10:25 Cephulac (Oral Use) PO 20 gm DAILY [facility] Administration Levothyroxine Sodium 100 mcg 11/14/17 07:00 11/22/17 06:03 Synthroid - PO 100 mcg DAILY@0700 [facility] Administration Magnesium Oxide 400 mg 11/13/17 22:00 11/22/17 10:25 Mag-Ox - PO 400 mg BID [facility] Administration Pantoprazole Sodium 40 mg 11/13/17 22:00 11/22/17 10:26 Protonix - PO 40 mg BID [facility] Administration Multivit/Folic Acid/Iron 1 tab 11/14/17 10:00 11/22/17 10:26 Vitamins (Sjr) - PO 1 tab DAILY [facility] Administration Temazepam 15 mg 11/16/17 22:00 11/21/17 21:54 Restoril - PO 15 mg HS [facility] Administration Thiamine HCl 100 mg 11/17/17 22:00 11/21/17 21:54 Vitamin B1 - PO 100 mg HS [facility] Administration ASSESSMENT/PLAN: This is a 56 y/o woman was admitted to ICU for Severe Thrombocytopenia, with acute on chronic Alcohol Abuse # Alcoholic cirrhosis of liver with Alcohol dependency with uncomplicated withdrawal, on thiamine/folic acid # ESBL E. coli UTI on INvanz ID on the case # Pancytopenia/Anemia/Severe Thrombocytopenia , splenomegaly , coagulopathy with portal HTN # Hypokalemia/ Hypomagnesemia /Hypophosphatemia repleted # hx of Cocaine abuse, urine neg, Dr. Driver is on the case # Hypothyroid on Levothyroxine # Hyperbilirubinemia secondary to advanced liver disease # Falling episodes # Hepatic encephalopathy, with NH4 elevation ,lactulose/rifaximine Dispo: pt requires iv antibxx 1 week. AWA sent to Insurance. Awaiting SNF placement. Considering pt's social history, cannot safely discharge pt from hospital to home with PICC. Pt needs SNF to complete iv antibiotic course. Visit type - Emergency Visit Emergency Visit: Yes ED Registration Date: 11/12/17 Care time: The patient presented to the Emergency Department on the above date and was hospitalized for further evaluation of their emergent condition. - New Patient This patient is new to me today: Yes Date on this admission: 11/22/17 - Critical Care Critical Care patient: No - Discharge Referral Referred to [facility] No
--- NOTE | 2017-11-22 16:58 | PN ---
Progress Note, Physician History of Present Illness: Pt afebrile, stable. No specific complaints. - Current Medication List Current Medications: Active Medications Artificial Tears (Artificial Tears) 1 drop OU BID PRN PRN Reason: DRY EYES Last Admin: 11/21/17 10:19 Dose: 1 drop Folic Acid (Folic Acid -) 1 mg PO DAILY [facility] Last Admin: 11/22/17 10:25 Dose: 1 mg Hydroxyzine HCl (Atarax -) 25 mg PO Q8H PRN PRN Reason: FOR ITCHING Last Admin: 11/21/17 10:23 Dose: 25 mg IV Flush (Picc Line Flush) 8 ml IVPUSH PRN PRN PRN Reason: Protocol Ertapenem 1 gm/ Sodium (Chloride) 100 mls @ 200 mls/hr IVPB DAILY [facility] PRN Reason: Protocol Last Admin: 11/22/17 10:25 Dose: 200 mls/hr Lactulose (Cephulac (Oral Use)) 20 gm PO DAILY [facility] Last Admin: 11/22/17 10:25 Dose: 20 gm Levothyroxine Sodium (Synthroid -) 100 mcg PO DAILY@0700 [facility] Last Admin: 11/22/17 06:03 Dose: 100 mcg Magnesium Oxide (Mag-Ox -) 400 mg PO BID [facility] Last Admin: 11/22/17 10:25 Dose: 400 mg Pantoprazole Sodium (Protonix -) 40 mg PO BID [facility] Last Admin: 11/22/17 10:26 Dose: 40 mg Multivit/Folic Acid/Iron ( Vitamins (Sjr) -) 1 tab PO DAILY [facility] Last Admin: 11/22/17 10:26 Dose: 1 tab Temazepam (Restoril -) 15 mg PO [facility] Last Admin: 11/21/17 21:54 Dose: 15 mg Thiamine HCl (Vitamin B1 -) 100 mg PO HS [facility] Last Admin: 11/21/17 21:54 Dose: 100 mg - Objective Vital Signs: Vital Signs Temperature 99 F 11/22/17 15:40 Pulse Rate 76 11/22/17 15:48 Respiratory Rate 22 11/22/17 15:40 Blood Pressure 116/58 11/22/17 15:40 O2 Sat by Pulse Oximetry (%) 99 11/22/17 15:48 Constitutional: Yes: No Distress, Calm Cardiovascular: Yes: Regular Rate and Rhythm Respiratory: Yes: Regular Gastrointestinal: Yes: Normal Bowel Sounds, Soft Genitourinary: Yes: WNL Extremities: Yes: WNL Neurological: Yes: Alert Labs: CBC, BMP 11/22/17 07:05 11/22/17 07:05 INR, PTT INR 1.58 (0.82-1.09) H 11/19/17 06:20 Fibrinogen 181.0 mg/dL (238-498) L 11/15/17 07:05 Problem List - Problems (1) Alcoholic cirrhosis of liver Code(s): K70.30 - ALCOHOLIC CIRRHOSIS OF LIVER WITHOUT ASCITES Qualifiers: Ascites presence: with ascites Qualified Code(s): K70.31 - Alcoholic cirrhosis of liver with ascites (2) ESBL (extended spectrum beta-lactamase) producing bacteria infection Code(s): A49.9 - BACTERIAL INFECTION, UNSPECIFIED; Z16.12 - EXTENDED SPECTRUM BETA LACTAMASE (ESBL) RESISTANCE (3) Hypokalemia Code(s): E87.6 - HYPOKALEMIA (4) Hypomagnesemia Code(s): E83.42 - HYPOMAGNESEMIA (5) Hypophosphatemia Code(s): E83.39 - OTHER DISORDERS OF PHOSPHORUS METABOLISM (6) Pancytopenia Code(s): D61.818 - OTHER PANCYTOPENIA (7) Falling episodes Code(s): R29.6 - REPEATED FALLS Assessment/Plan ESBL E. coli UTI - continue Invanz - detox f/u pt afebrile, without new complaints
[2017-11-22] MEDS: THIAMINE HCL 100 MG TABLET (FP) PO SCH (23:14)
[2017-11-22] MEDS: hydrOXYzine HCL 25 MG TABLET (FP) PO PRN (23:14)
[2017-11-22] MEDS: TEMAZEPAM 15 MG CAPSULE PO SCH (23:14)
[2017-11-23] MEDS: LEVOTHYROXINE NA 100 MCG TABLET (FP) PO SCH (07:09)
[2017-11-23] MEDS ORDERED: PT OWN MED DRAWER 7, Y5N ONE (09:53)
[2017-11-23] MEDS: ERTAPENEM SODIUM 1 GM in SODIUM CHLORIDE 100 ML IVPB SCH (09:58)
[2017-11-23] MEDS: FOLIC ACID 1 MG TABLET (FP) PO SCH (09:58)
[2017-11-23] MEDS: LACTULOSE 20 GM/30 ML UDC (FOR ORAL USE ONLY) PO SCH (09:58)
[2017-11-23] MEDS: MAGNESIUM OXIDE 400 MG TABLET (FP) PO SCH ×2 (09:59→22:38)
[2017-11-23] MEDS: PRENATAL VITAMINS W/ FOLIC ACID TABLET (FP) PO SCH (09:59)
[2017-11-23] MEDS: PANTOPRAZOLE 40 MG TABLET (FP) PO SCH ×2 (09:59→22:38)
--- NOTE | 2017-11-23 13:48 | PN ---
Physical Exam: SUBJECTIVE: Patient seen and examined sitting on edge of bed. Several complaints. Food is terrible. Feels weak and unsteady. OBJECTIVE: Vital Signs Period Temp Pulse Resp BP Sys/Aguero Pulse Ox Last 24 Hr 98.2 F-99.8 F 74-82 20-22 92-122/54-69 99-99 GENERAL: The patient is awake, alert, and fully oriented, in no acute distress. LUNGS: Breath sounds equal, clear to auscultation bilaterally, no wheezes, no crackles, no accessory muscle use. HEART: Regular rate and rhythm, S1, S2 EXTREMITIES: 2+ pulses, warm, well-perfused, no edema. NEUROLOGICAL: Cranial nerves II through XII grossly intact. Normal speech, gait not observed. Active Medications Generic Name Dose Route Start Last Admin Trade Name Freq PRN Reason Stop Dose Admin Artificial Tears 1 drop 11/17/17 12:46 11/21/17 10:19 Artificial Tears OU 1 drop BID PRN Administration DRY EYES Folic Acid 1 mg 11/14/17 10:00 11/23/17 09:58 Folic Acid - PO 1 mg DAILY [facility] Administration Hydroxyzine HCl 25 mg 11/13/17 14:52 11/22/17 23:14 Atarax - PO 25 mg Q8H PRN Administration FOR ITCHING IV Flush 8 ml 11/19/17 11:08 Picc Line Flush IVPUSH PRN PRN Protocol Ertapenem 1 gm/ Sodium 100 mls @ 200 mls/hr 11/14/17 15:00 11/23/17 09:58 Chloride IVPB 200 mls/hr DAILY [facility] Administration Protocol Lactulose 20 gm 11/20/17 10:00 11/23/17 09:58 Cephulac (Oral Use) PO 20 gm DAILY [facility] Administration Levothyroxine Sodium 100 mcg 11/14/17 07:00 11/23/17 07:09 Synthroid - PO 100 mcg DAILY@0700 [facility] Administration Magnesium Oxide 400 mg 11/13/17 22:00 11/23/17 09:59 Mag-Ox - PO 400 mg BID [facility] Administration Pantoprazole Sodium 40 mg 11/13/17 22:00 11/23/17 09:59 Protonix - PO 40 mg BID [facility] Administration Multivit/Folic Acid/Iron 1 tab 11/14/17 10:00 11/23/17 09:59 Vitamins (Sjr) - PO 1 tab DAILY [facility] Administration Temazepam 15 mg 11/16/17 22:00 11/22/17 23:14 Restoril - PO 15 mg HS [facility] Administration Thiamine HCl 100 mg 11/17/17 22:00 11/22/17 23:14 Vitamin B1 - PO 100 mg HS [facility] Administration ASSESSMENT/PLAN: (1) Alcoholic cirrhosis of liver Assessment/Plan: abd CT w/ cirrhosis, splenomegaly ammonia level elevation trending down lactulose/rifaximin plan for egd outpt 2-3 weeks per Code(s): K70.30 - ALCOHOLIC CIRRHOSIS OF LIVER WITHOUT ASCITES Qualifiers: Ascites presence: with ascites Qualified Code(s): K70.31 - Alcoholic cirrhosis of liver with ascites (2) Pancytopenia Assessment/Plan: platelets 59 secondary to ETOH Code(s): D61.818 - OTHER PANCYTOPENIA (3) Alcohol dependence with uncomplicated withdrawal Assessment/Plan: Blood Alcohol level- 322, CIWA-2 completed librium detox thiamine/folic acid nutrition consult S-detox team following Code(s): F10.230 - ALCOHOL DEPENDENCE WITH WITHDRAWAL, UNCOMPLICATED (4) Hypokalemia Assessment/Plan: resolved Code(s): E87.6 - HYPOKALEMIA (5) Hypomagnesemia Assessment/Plan: replete Code(s): E83.42 - HYPOMAGNESEMIA (6) Hypophosphatemia Assessment/Plan: improved Code(s): E83.39 - OTHER DISORDERS OF PHOSPHORUS METABOLISM (7) Splenomegaly Assessment/Plan: secondary to portal htn will monitor Code(s): R16.1 - SPLENOMEGALY, NOT ELSEWHERE CLASSIFIED (8) Cocaine abuse Assessment/Plan: urine neg detox plan as above Code(s): F14.10 - COCAINE ABUSE, UNCOMPLICATED (9) Hypothyroid Assessment/Plan: stable continue levothyroixine Code(s): E03.9 - HYPOTHYROIDISM, UNSPECIFIED Qualifiers: (10) Hyperbilirubinemia Assessment/Plan: secondary to advanced liver disease hepatic panel reviewed Code(s): E80.6 - OTHER DISORDERS OF BILIRUBIN METABOLISM (11) Falling episodes Assessment/Plan: hx of falls secondary to alcohol intoxication head CT neg abd/pelvis ct chronic T11/L1 compression fractures fall risk precautions Code(s): R29.6 - REPEATED FALLS (12) UTI (urinary tract infection) Assessment/Plan: UC grew ecoli,esbl prod continue ertapenem IR for PICC upon d/c ID following Code(s): N39.0 - URINARY TRACT INFECTION, SITE NOT SPECIFIED (13) Hepatic encephalopathy Assessment/Plan: NH4 elevation lactulose/rifaximine Code(s): K72.90 - HEPATIC FAILURE, UNSPECIFIED WITHOUT COMA Visit type - Emergency Visit Emergency Visit: Yes ED Registration Date: 11/12/17 Care time: The patient presented to the Emergency Department on the above date and was hospitalized for further evaluation of their emergent condition. - New Patient This patient is new to me today: Yes Date on this admission: 11/23/17 - Critical Care Critical Care patient: No
--- NOTE | 2017-11-23 18:23 | PN ---
Progress Note, Physician History of Present Illness: Pt is alert, without acute distress. Requesting ambien. Denies dysuria, chills. Tmax 99F. - Current Medication List Current Medications: Active Medications Artificial Tears (Artificial Tears) 1 drop OU BID PRN PRN Reason: DRY EYES Last Admin: 11/21/17 10:19 Dose: 1 drop Folic Acid (Folic Acid -) 1 mg PO DAILY [facility] Last Admin: 11/23/17 09:58 Dose: 1 mg Hydroxyzine HCl (Atarax -) 25 mg PO Q8H PRN PRN Reason: FOR ITCHING Last Admin: 11/22/17 23:14 Dose: 25 mg IV Flush (Picc Line Flush) 8 ml IVPUSH PRN PRN PRN Reason: Protocol Ertapenem 1 gm/ Sodium (Chloride) 100 mls @ 200 mls/hr IVPB DAILY [facility] PRN Reason: Protocol Last Admin: 11/23/17 09:58 Dose: 200 mls/hr Lactulose (Cephulac (Oral Use)) 20 gm PO DAILY [facility] Last Admin: 11/23/17 09:58 Dose: 20 gm Levothyroxine Sodium (Synthroid -) 100 mcg PO DAILY@0700 [facility] Last Admin: 11/23/17 07:09 Dose: 100 mcg Magnesium Oxide (Mag-Ox -) 400 mg PO BID [facility] Last Admin: 11/23/17 09:59 Dose: 400 mg Pantoprazole Sodium (Protonix -) 40 mg PO BID [facility] Last Admin: 11/23/17 09:59 Dose: 40 mg Multivit/Folic Acid/Iron ( Vitamins (Sjr) -) 1 tab PO DAILY [facility] Last Admin: 11/23/17 09:59 Dose: 1 tab Thiamine HCl (Vitamin B1 -) 100 mg PO HS [facility] Last Admin: 11/22/17 23:14 Dose: 100 mg - Objective Vital Signs: Vital Signs Temperature 99 F 11/23/17 17:10 Pulse Rate 77 11/23/17 17:10 Respiratory Rate 20 11/23/17 17:10 Blood Pressure 103/55 11/23/17 17:10 O2 Sat by Pulse Oximetry (%) 98 11/23/17 15:32 Constitutional: Yes: No Distress, Calm Cardiovascular: Yes: Regular Rate and Rhythm Respiratory: Yes: Regular Gastrointestinal: Yes: Normal Bowel Sounds, Soft Genitourinary: Yes: WNL Psychiatric: Yes: Alert, Oriented Labs: CBC, BMP 11/22/17 07:05 11/22/17 07:05 INR, PTT INR 1.58 (0.82-1.09) H 11/19/17 06:20 Fibrinogen 181.0 mg/dL (238-498) L 11/15/17 07:05 Problem List - Problems (1) Alcoholic cirrhosis of liver Code(s): K70.30 - ALCOHOLIC CIRRHOSIS OF LIVER WITHOUT ASCITES Qualifiers: Ascites presence: with ascites Qualified Code(s): K70.31 - Alcoholic cirrhosis of liver with ascites (2) ESBL (extended spectrum beta-lactamase) producing bacteria infection Code(s): A49.9 - BACTERIAL INFECTION, UNSPECIFIED; Z16.12 - EXTENDED SPECTRUM BETA LACTAMASE (ESBL) RESISTANCE (3) Hypokalemia Code(s): E87.6 - HYPOKALEMIA (4) Hypomagnesemia Code(s): E83.42 - HYPOMAGNESEMIA (5) Hypophosphatemia Code(s): E83.39 - OTHER DISORDERS OF PHOSPHORUS METABOLISM (6) Pancytopenia Code(s): D61.818 - OTHER PANCYTOPENIA (7) Falling episodes Code(s): R29.6 - REPEATED FALLS Assessment/Plan ESBL E. coli UTI - continue current antibiotics - monitor temps pt clinically appears stable detox f/u
[2017-11-23] MEDS: hydrOXYzine HCL 25 MG TABLET (FP) PO PRN (22:38)
[2017-11-23] MEDS: THIAMINE HCL 100 MG TABLET (FP) PO SCH (22:38)
[2017-11-24] MEDS: TEMAZEPAM 15 MG CAPSULE PO SCH ×2 (00:18→22:50)
[2017-11-24] MEDS: LEVOTHYROXINE NA 100 MCG TABLET (FP) PO SCH (07:12)
[2017-11-24] MEDS ORDERED: PT OWN MED DRAWER 7, Y5N ONE (10:33)
[2017-11-24] MEDS: LACTULOSE 20 GM/30 ML UDC (FOR ORAL USE ONLY) PO SCH (10:35)
[2017-11-24] MEDS: PRENATAL VITAMINS W/ FOLIC ACID TABLET (FP) PO SCH (10:36)
[2017-11-24] MEDS: PANTOPRAZOLE 40 MG TABLET (FP) PO SCH ×2 (10:36→22:50)
[2017-11-24] MEDS: hydrOXYzine HCL 25 MG TABLET (FP) PO PRN (10:36)
[2017-11-24] MEDS: ERTAPENEM SODIUM 1 GM in SODIUM CHLORIDE 100 ML IVPB SCH (10:36)
[2017-11-24] MEDS: FOLIC ACID 1 MG TABLET (FP) PO SCH (10:36)
[2017-11-24] MEDS: MAGNESIUM OXIDE 400 MG TABLET (FP) PO SCH (10:36)
--- NOTE | 2017-11-24 11:38 | PN ---
Progress Note, Physician History of Present Illness: patient doing well no complaints - Current Medication List Current Medications: Active Medications Artificial Tears (Artificial Tears) 1 drop OU BID PRN PRN Reason: DRY EYES Last Admin: 11/21/17 10:19 Dose: 1 drop Folic Acid (Folic Acid -) 1 mg PO DAILY [facility] Last Admin: 11/24/17 10:36 Dose: 1 mg Hydroxyzine HCl (Atarax -) 25 mg PO Q8H PRN PRN Reason: FOR ITCHING Last Admin: 11/24/17 10:36 Dose: 25 mg IV Flush (Picc Line Flush) 8 ml IVPUSH PRN PRN PRN Reason: Protocol Ertapenem 1 gm/ Sodium (Chloride) 100 mls @ 200 mls/hr IVPB DAILY [facility] PRN Reason: Protocol Last Admin: 11/24/17 10:36 Dose: 200 mls/hr Lactulose (Cephulac (Oral Use)) 20 gm PO DAILY [facility] Last Admin: 11/24/17 10:35 Dose: 20 gm Levothyroxine Sodium (Synthroid -) 100 mcg PO DAILY@0700 [facility] Last Admin: 11/24/17 07:12 Dose: 100 mcg Magnesium Oxide (Mag-Ox -) 400 mg PO BID [facility] Last Admin: 11/24/17 10:36 Dose: 400 mg Pantoprazole Sodium (Protonix -) 40 mg PO BID [facility] Last Admin: 11/24/17 10:36 Dose: 40 mg Multivit/Folic Acid/Iron ( Vitamins (Sjr) -) 1 tab PO DAILY [facility] Last Admin: 11/24/17 10:36 Dose: 1 tab Temazepam (Restoril -) 15 mg PO [facility] Last Admin: 11/24/17 00:18 Dose: 15 mg Thiamine HCl (Vitamin B1 -) 100 mg PO HS [facility] Last Admin: 11/23/17 22:38 Dose: 100 mg - Objective Vital Signs: Vital Signs Temperature 100.3 F H 11/24/17 06:00 Pulse Rate 90 11/24/17 06:00 Respiratory Rate 20 11/24/17 06:00 Blood Pressure 129/60 11/24/17 06:00 O2 Sat by Pulse Oximetry (%) 98 11/23/17 21:00 Constitutional: Yes: No Distress, Calm Cardiovascular: Yes: Regular Rate and Rhythm Respiratory: Yes: Regular, CTA Bilaterally Gastrointestinal: Yes: Normal Bowel Sounds, Soft Musculoskeletal: Yes: WNL Neurological: Yes: Alert, Oriented Psychiatric: Yes: Alert, Oriented Labs: CBC, BMP 11/22/17 07:05 11/22/17 07:05 INR, PTT INR 1.58 (0.82-1.09) H 11/19/17 06:20 Fibrinogen 181.0 mg/dL (238-498) L 11/15/17 07:05 Assessment/Plan Assessment/Plan (1) Alcoholic cirrhosis of liver Code(s): K70.30 - ALCOHOLIC CIRRHOSIS OF LIVER WITHOUT ASCITES Qualifiers: Ascites presence: with ascites Qualified Code(s): K70.31 - Alcoholic cirrhosis of liver with ascites (2) Pancytopenia Code(s): D61.818 - OTHER PANCYTOPENIA (3) Alcohol dependence with uncomplicated withdrawal Code(s): F10.230 - ALCOHOL DEPENDENCE WITH WITHDRAWAL, UNCOMPLICATED (4) Hypokalemia Code(s): E87.6 - HYPOKALEMIA (5) Hypomagnesemia Code(s): E83.42 - HYPOMAGNESEMIA (6) Hypophosphatemia Code(s): E83.39 - OTHER DISORDERS OF PHOSPHORUS METABOLISM (7) Splenomegaly Code(s): R16.1 - SPLENOMEGALY, NOT ELSEWHERE CLASSIFIED (8) Coagulopathy (9) Hypothyroid Code(s): E03.9 - HYPOTHYROIDISM, UNSPECIFIED Qualifiers: (10) Falling episodes Code(s): R29.6 - REPEATED FALLS (11) UTI (urinary tract infection) Code(s): N39.0 - URINARY TRACT INFECTION, SITE NOT SPECIFIED (12) Hepatic encephalopathy Code(s): K72.90 - HEPATIC FAILURE, UNSPECIFIED WITHOUT COMA plan' continue as per detox continue abx complete the abx course nutrition rest as per the team physio
--- NOTE | 2017-11-24 11:46 | PN ---
Progress Note, Physician Chief Complaint: Pt lying in bed in no acute distress. emphasized the need to abstain from alcohol upon d/c, pt reports understanding. Denies any chest pain, n/v/d, unilateral weakness. - Current Medication List Current Medications: Active Medications Artificial Tears (Artificial Tears) 1 drop OU BID PRN PRN Reason: DRY EYES Last Admin: 11/21/17 10:19 Dose: 1 drop Folic Acid (Folic Acid -) 1 mg PO DAILY [facility] Last Admin: 11/24/17 10:36 Dose: 1 mg Hydroxyzine HCl (Atarax -) 25 mg PO Q8H PRN PRN Reason: FOR ITCHING Last Admin: 11/24/17 10:36 Dose: 25 mg IV Flush (Picc Line Flush) 8 ml IVPUSH PRN PRN PRN Reason: Protocol Ertapenem 1 gm/ Sodium (Chloride) 100 mls @ 200 mls/hr IVPB DAILY [facility] PRN Reason: Protocol Last Admin: 11/24/17 10:36 Dose: 200 mls/hr Lactulose (Cephulac (Oral Use)) 20 gm PO DAILY [facility] Last Admin: 11/24/17 10:35 Dose: 20 gm Levothyroxine Sodium (Synthroid -) 100 mcg PO DAILY@0700 [facility] Last Admin: 11/24/17 07:12 Dose: 100 mcg Magnesium Oxide (Mag-Ox -) 400 mg PO BID [facility] Last Admin: 11/24/17 10:36 Dose: 400 mg Pantoprazole Sodium (Protonix -) 40 mg PO BID [facility] Last Admin: 11/24/17 10:36 Dose: 40 mg Multivit/Folic Acid/Iron ( Vitamins (Sjr) -) 1 tab PO DAILY [facility] Last Admin: 11/24/17 10:36 Dose: 1 tab Temazepam (Restoril -) 15 mg PO HS [facility] Last Admin: 11/24/17 00:18 Dose: 15 mg Thiamine HCl (Vitamin B1 -) 100 mg PO HS [facility] Last Admin: 11/23/17 22:38 Dose: 100 mg - Objective Vital Signs: Vital Signs Temperature 100.3 F H 11/24/17 06:00 Pulse Rate 90 11/24/17 06:00 Respiratory Rate 20 11/24/17 06:00 Blood Pressure 129/60 11/24/17 06:00 O2 Sat by Pulse Oximetry (%) 98 11/23/17 21:00 Constitutional: Yes: Well Nourished, No Distress Cardiovascular: Yes: WNL, Regular Rate and Rhythm. No: Gallop, Murmur, Rub Respiratory: Yes: WNL, Regular, CTA Bilaterally. No: Accessory Muscle Use, SOB , Tachypnea, Wheezes Gastrointestinal: Yes: WNL, Normal Bowel Sounds, Soft, Abdomen, Obese. No: Distention, Tenderness Genitourinary: Yes: WNL Edema: No Neurological: Yes: Alert, Oriented, Tremors Psychiatric: Yes: Alert, Oriented Labs: CBC, BMP 11/22/17 07:05 11/22/17 07:05 INR, PTT INR 1.58 (0.82-1.09) H 11/19/17 06:20 Fibrinogen 181.0 mg/dL (238-498) L 11/15/17 07:05 Problem List - Problems (1) Alcoholic cirrhosis of liver Code(s): K70.30 - ALCOHOLIC CIRRHOSIS OF LIVER WITHOUT ASCITES Qualifiers: Ascites presence: with ascites Qualified Code(s): K70.31 - Alcoholic cirrhosis of liver with ascites (2) Pancytopenia Code(s): D61.818 - OTHER PANCYTOPENIA (3) Alcohol dependence with uncomplicated withdrawal Code(s): F10.230 - ALCOHOL DEPENDENCE WITH WITHDRAWAL, UNCOMPLICATED (4) Hypokalemia Code(s): E87.6 - HYPOKALEMIA (5) Hypomagnesemia Code(s): E83.42 - HYPOMAGNESEMIA (6) Hypophosphatemia Code(s): E83.39 - OTHER DISORDERS OF PHOSPHORUS METABOLISM (7) Splenomegaly Code(s): R16.1 - SPLENOMEGALY, NOT ELSEWHERE CLASSIFIED (8) Cocaine abuse Code(s): F14.10 - COCAINE ABUSE, UNCOMPLICATED (9) Hypothyroid Code(s): E03.9 - HYPOTHYROIDISM, UNSPECIFIED Qualifiers: (10) Hyperbilirubinemia Code(s): E80.6 - OTHER DISORDERS OF BILIRUBIN METABOLISM (11) Falling episodes Code(s): R29.6 - REPEATED FALLS (12) UTI (urinary tract infection) Code(s): N39.0 - URINARY TRACT INFECTION, SITE NOT SPECIFIED (13) Hepatic encephalopathy Code(s): K72.90 - HEPATIC FAILURE, UNSPECIFIED WITHOUT COMA Assessment/Plan (1) Alcoholic cirrhosis of liver Assessment/Plan: admitted w/ severe pancytopenia abd CT w/ cirrhosis, splenomegaly heme-occult neg nadolol ammonia level elevation trending down lactulose/rifaximin case discussed with GI, plan for egd outpt 2-3 weeks per discussed with pt importance of abstaining from alcohol post discharge Code(s): K70.30 - ALCOHOLIC CIRRHOSIS OF LIVER WITHOUT ASCITES Qualifiers: Ascites presence: with ascites Qualified Code(s): K70.31 - Alcoholic cirrhosis of liver with ascites (2) Pancytopenia Assessment/Plan: as above, h/h stable plt normal transf threshold transfuse plts per hematology monitor cbc PPI discussed with hematology, pt cleared from hematology stand point Code(s): D61.818 - OTHER PANCYTOPENIA (3) Alcohol dependence with uncomplicated withdrawal Assessment/Plan: Blood Alcohol level- 322, CIWA-2 completed librium detox replete electrolytes as needed thiamine/folic acid nutrition consult [facility]-detox team following Dispo: possibly outpt rehab when clinically stable Code(s): F10.230 - ALCOHOL DEPENDENCE WITH WITHDRAWAL, UNCOMPLICATED (4) Hypokalemia Assessment/Plan: as above replete as needed monitor bmp Code(s): E87.6 - HYPOKALEMIA (5) Hypomagnesemia Assessment/Plan: repleted monitor bmp Code(s): E83.42 - HYPOMAGNESEMIA (6) Hypophosphatemia Assessment/Plan: improved Code(s): E83.39 - OTHER DISORDERS OF PHOSPHORUS METABOLISM (7) Splenomegaly Assessment/Plan: secondary to portal htn will monitor Code(s): R16.1 - SPLENOMEGALY, NOT ELSEWHERE CLASSIFIED (8) Cocaine abuse Assessment/Plan: urine neg detox plan as above Code(s): F14.10 - COCAINE ABUSE, UNCOMPLICATED (9) Hypothyroid Assessment/Plan: stable continue levothyroixine Code(s): E03.9 - HYPOTHYROIDISM, UNSPECIFIED Qualifiers: (10) Hyperbilirubinemia Assessment/Plan: secondary to advanced liver disease hepatic panel reviewed Code(s): E80.6 - OTHER DISORDERS OF BILIRUBIN METABOLISM (11) Falling episodes Assessment/Plan: hx of falls secondary to alcohol intoxication head CT neg abd/pelvis ct chronic T11/L1 compression fractures fall risk precautions Code(s): R29.6 - REPEATED FALLS (12) UTI (urinary tract infection) Assessment/Plan: UC grew ecoli,esbl prod Ertapenem day 06/10 ID following Code(s): N39.0 - URINARY TRACT INFECTION, SITE NOT SPECIFIED (13) Hepatic encephalopathy Assessment/Plan: NH4 elevation lactulose/rifaximine Code(s): K72.90 - HEPATIC FAILURE, UNSPECIFIED WITHOUT COMA Dispo: pt requires iv antibx per ID. AWA sent to Insurance. Awaiting SNF placement. Considering pt's social history, cannot safely discharge pt from hospital to home with PICC. 11/24 pt not accepted to any snf facilities. informed SW antibiotic course will be completed in 3 days and pt will be medically cleared for d/c. Pt expressed she would like to do outpt drug rehab, informed SW. Anticipated discharge 11/27.
[2017-11-24 13:18] LABS: EOS % 1.5 % (0-4.5); HEMATOCRIT 28.5 % (32.4-45.2); HEMOGLOBIN 9.7 GM/dL (10.7-15.3); LYMPH % 26.7 % (8-40); MCH 33.7 pg (25.7-33.7); MCHC 33.9 g/dl (32.0-36.0); MEAN CELL VOLUME 99.2 fl (80-96); MEAN PLT VOLUME 10.2 fl (7.5-11.1); MONO % 8.5 % (3.8-10.2); NEUT % 61.3 % (42.8-82.8); PLATELET COUNT 68 K/MM3 (134-434); RBC 2.87 M/mm3 (3.60-5.2); RDW 18.2 % (11.6-15.6); WHITE BLOOD COUNT 4.3 K/mm3 (4.0-10.0)
[2017-11-24 13:45] LABS: ANION GAP 9 (8-16); BLOOD UREA NITROGEN 7 mg/dL (7-18); CALCIUM 8.9 mg/dL (8.5-10.1); CHLORIDE 104 mmol/L (98-107); CO2 27 mmol/L (21-32); CREATININE 1.2 mg/dL (0.55-1.02); GLUCOSE,RANDOM 230 mg/dL (74-106); MAGNESIUM 1.8 mg/dL (1.8-2.4); PHOSPHOROUS 2.3 mg/dL (2.5-4.9); POTASSIUM 3.6 mmol/L (3.5-5.1); SODIUM 140 mmol/L (136-145)
[2017-11-24] MEDS ORDERED: POTASSIUM CHLORIDE TABS 20 MEQ TABLET.ER (FP) PO ONE (14:30)
[2017-11-24] MEDS ORDERED: MAGNESIUM OXIDE 400 MG TABLET (FP) PO ONE (14:30)
[2017-11-24] MEDS: THIAMINE HCL 100 MG TABLET (FP) PO SCH (22:50)
[2017-11-25] MEDS: LEVOTHYROXINE NA 100 MCG TABLET (FP) PO SCH (06:44)
[2017-11-25] MEDS ORDERED: PT OWN MED DRAWER 7, Y5N ONE (09:19)
[2017-11-25] MEDS: LACTULOSE 20 GM/30 ML UDC (FOR ORAL USE ONLY) PO SCH ×3 (10:49→15:06)
[2017-11-25] MEDS: PRENATAL VITAMINS W/ FOLIC ACID TABLET (FP) PO SCH (10:49)
[2017-11-25] MEDS: ERTAPENEM SODIUM 1 GM in SODIUM CHLORIDE 100 ML IVPB SCH (10:49)
[2017-11-25] MEDS: MAGNESIUM OXIDE 400 MG TABLET (FP) PO SCH ×2 (10:50→21:06)
[2017-11-25] MEDS: PANTOPRAZOLE 40 MG TABLET (FP) PO SCH ×2 (10:50→21:06)
[2017-11-25] MEDS: FOLIC ACID 1 MG TABLET (FP) PO SCH (10:50)
--- NOTE | 2017-11-25 12:46 | PN ---
Progress Note, Physician Chief Complaint: Pt lying in bed in no acute distress. Denies any chest pain, n/v/d, unilateral weakness. - Current Medication List Current Medications: Active Medications Artificial Tears (Artificial Tears) 1 drop OU BID PRN PRN Reason: DRY EYES Last Admin: 11/21/17 10:19 Dose: 1 drop Folic Acid (Folic Acid -) 1 mg PO DAILY [facility] Last Admin: 11/25/17 10:50 Dose: 1 mg Hydroxyzine HCl (Atarax -) 25 mg PO Q8H PRN PRN Reason: FOR ITCHING Last Admin: 11/24/17 10:36 Dose: 25 mg IV Flush (Picc Line Flush) 8 ml IVPUSH PRN PRN PRN Reason: Protocol Ertapenem 1 gm/ Sodium (Chloride) 100 mls @ 200 mls/hr IVPB DAILY [facility] PRN Reason: Protocol Last Admin: 11/25/17 10:49 Dose: 200 mls/hr Lactulose (Cephulac (Oral Use)) 20 gm PO DAILY [facility] Last Admin: 11/25/17 10:57 Dose: Not Given Levothyroxine Sodium (Synthroid -) 100 mcg PO DAILY@0700 [facility] Last Admin: 11/25/17 06:44 Dose: 100 mcg Magnesium Oxide (Mag-Ox -) 400 mg PO BID [facility] Last Admin: 11/25/17 10:50 Dose: 400 mg Pantoprazole Sodium (Protonix -) 40 mg PO BID [facility] Last Admin: 11/25/17 10:50 Dose: 40 mg Multivit/Folic Acid/Iron ( Vitamins (Sjr) -) 1 tab PO DAILY [facility] Last Admin: 11/25/17 10:49 Dose: 1 tab Temazepam (Restoril -) 15 mg PO [facility] Last Admin: 11/24/17 22:50 Dose: 15 mg Thiamine HCl (Vitamin B1 -) 100 mg PO HS [facility] Last Admin: 11/24/17 22:50 Dose: 100 mg - Objective Vital Signs: Vital Signs Temperature 99.6 F 11/25/17 07:01 Pulse Rate 82 11/25/17 07:01 Respiratory Rate 20 11/25/17 07:01 Blood Pressure 108/68 11/25/17 07:01 O2 Sat by Pulse Oximetry (%) 98 11/24/17 21:00 Constitutional: Yes: Well Nourished, No Distress, Calm Cardiovascular: Yes: WNL, Regular Rate and Rhythm. No: Bruit, Gallop, Murmur Respiratory: Yes: WNL, Regular, CTA Bilaterally Gastrointestinal: Yes: WNL, Normal Bowel Sounds, Soft, Abdomen, Obese. No: Distention, Tenderness Genitourinary: Yes: WNL Edema: No Neurological: Yes: WNL, Alert, Oriented Psychiatric: Yes: WNL, Alert, Oriented Labs: CBC, BMP 11/24/17 12:20 11/24/17 12:20 INR, PTT INR 1.58 (0.82-1.09) H 11/19/17 06:20 Fibrinogen 181.0 mg/dL (238-498) L 11/15/17 07:05 Problem List - Problems (1) Alcoholic cirrhosis of liver Code(s): K70.30 - ALCOHOLIC CIRRHOSIS OF LIVER WITHOUT ASCITES Qualifiers: Ascites presence: with ascites Qualified Code(s): K70.31 - Alcoholic cirrhosis of liver with ascites (2) Pancytopenia Code(s): D61.818 - OTHER PANCYTOPENIA (3) Alcohol dependence with uncomplicated withdrawal Code(s): F10.230 - ALCOHOL DEPENDENCE WITH WITHDRAWAL, UNCOMPLICATED (4) Hypokalemia Code(s): E87.6 - HYPOKALEMIA (5) Hypomagnesemia Code(s): E83.42 - HYPOMAGNESEMIA (6) Hypophosphatemia Code(s): E83.39 - OTHER DISORDERS OF PHOSPHORUS METABOLISM (7) Splenomegaly Code(s): R16.1 - SPLENOMEGALY, NOT ELSEWHERE CLASSIFIED (8) Cocaine abuse Code(s): F14.10 - COCAINE ABUSE, UNCOMPLICATED (9) Hypothyroid Code(s): E03.9 - HYPOTHYROIDISM, UNSPECIFIED Qualifiers: (10) Hyperbilirubinemia Code(s): E80.6 - OTHER DISORDERS OF BILIRUBIN METABOLISM (11) Falling episodes Code(s): R29.6 - REPEATED FALLS (12) UTI (urinary tract infection) Code(s): N39.0 - URINARY TRACT INFECTION, SITE NOT SPECIFIED (13) Hepatic encephalopathy Code(s): K72.90 - HEPATIC FAILURE, UNSPECIFIED WITHOUT COMA Assessment/Plan (1) Alcoholic cirrhosis of liver Assessment/Plan: admitted w/ severe pancytopenia abd CT w/ cirrhosis, splenomegaly heme-occult neg nadolol ammonia level elevation trending down lactulose/rifaximin case discussed with GI, plan for egd outpt 2-3 weeks per discussed with pt importance of abstaining from alcohol post discharge Code(s): K70.30 - ALCOHOLIC CIRRHOSIS OF LIVER WITHOUT ASCITES Qualifiers: Ascites presence: with ascites Qualified Code(s): K70.31 - Alcoholic cirrhosis of liver with ascites (2) Pancytopenia Assessment/Plan: as above, h/h stable plt normal transf threshold transfuse plts per hematology monitor cbc PPI discussed with hematology, pt cleared from hematology stand point Code(s): D61.818 - OTHER PANCYTOPENIA (3) Alcohol dependence with uncomplicated withdrawal Assessment/Plan: Blood Alcohol level- 322, CIWA-2 completed librium detox replete electrolytes as needed thiamine/folic acid nutrition consult [facility]-detox team following Dispo: possibly outpt rehab when clinically stable Code(s): F10.230 - ALCOHOL DEPENDENCE WITH WITHDRAWAL, UNCOMPLICATED (4) Hypokalemia Assessment/Plan: as above replete as needed monitor bmp Code(s): E87.6 - HYPOKALEMIA (5) Hypomagnesemia Assessment/Plan: repleted monitor bmp Code(s): E83.42 - HYPOMAGNESEMIA (6) Hypophosphatemia Assessment/Plan: improved Code(s): E83.39 - OTHER DISORDERS OF PHOSPHORUS METABOLISM (7) Splenomegaly Assessment/Plan: secondary to portal htn will monitor Code(s): R16.1 - SPLENOMEGALY, NOT ELSEWHERE CLASSIFIED (8) Cocaine abuse Assessment/Plan: urine neg detox plan as above Code(s): F14.10 - COCAINE ABUSE, UNCOMPLICATED (9) Hypothyroid Assessment/Plan: stable continue levothyroixine Code(s): E03.9 - HYPOTHYROIDISM, UNSPECIFIED Qualifiers: (10) Hyperbilirubinemia Assessment/Plan: secondary to advanced liver disease hepatic panel reviewed Code(s): E80.6 - OTHER DISORDERS OF BILIRUBIN METABOLISM (11) Falling episodes Assessment/Plan: hx of falls secondary to alcohol intoxication head CT neg abd/pelvis ct chronic T11/L1 compression fractures fall risk precautions Code(s): R29.6 - REPEATED FALLS (12) UTI (urinary tract infection) Assessment/Plan: UC grew ecoli,esbl prod Ertapenem day 12 ID following Code(s): N39.0 - URINARY TRACT INFECTION, SITE NOT SPECIFIED (13) Hepatic encephalopathy Assessment/Plan: NH4 elevation lactulose/rifaximine Code(s): K72.90 - HEPATIC FAILURE, UNSPECIFIED WITHOUT COMA Dispo: pt requires iv antibx per ID. AWA sent to Insurance. Awaiting SNF placement. Considering pt's social history, cannot safely discharge pt from hospital to home with PICC. 11/24 pt not accepted to any snf facilities. informed SW antibiotic course will be completed in 3 days and pt will be medically cleared for d/c. Pt expressed she would like to do outpt drug rehab, informed SW. Anticipated discharge 11/27.
--- NOTE | 2017-11-25 14:29 | PN ---
Progress Note, Physician History of Present Illness: stable no new issues - Current Medication List Current Medications: Active Medications Artificial Tears (Artificial Tears) 1 drop OU BID PRN PRN Reason: DRY EYES Last Admin: 11/21/17 10:19 Dose: 1 drop Folic Acid (Folic Acid -) 1 mg PO DAILY [facility] Last Admin: 11/25/17 10:50 Dose: 1 mg Hydroxyzine HCl (Atarax -) 25 mg PO Q8H PRN PRN Reason: FOR ITCHING Last Admin: 11/24/17 10:36 Dose: 25 mg IV Flush (Picc Line Flush) 8 ml IVPUSH PRN PRN PRN Reason: Protocol Ertapenem 1 gm/ Sodium (Chloride) 100 mls @ 200 mls/hr IVPB DAILY [facility] PRN Reason: Protocol Last Admin: 11/25/17 10:49 Dose: 200 mls/hr Lactulose (Cephulac (Oral Use)) 20 gm PO DAILY [facility] Last Admin: 11/25/17 10:57 Dose: Not Given Levothyroxine Sodium (Synthroid -) 100 mcg PO DAILY@0700 [facility] Last Admin: 11/25/17 06:44 Dose: 100 mcg Magnesium Oxide (Mag-Ox -) 400 mg PO BID [facility] Last Admin: 11/25/17 10:50 Dose: 400 mg Pantoprazole Sodium (Protonix -) 40 mg PO BID [facility] Last Admin: 11/25/17 10:50 Dose: 40 mg Multivit/Folic Acid/Iron ( Vitamins (Sjr) -) 1 tab PO DAILY [facility] Last Admin: 11/25/17 10:49 Dose: 1 tab Temazepam (Restoril -) 15 mg PO [facility] Last Admin: 11/24/17 22:50 Dose: 15 mg Thiamine HCl (Vitamin B1 -) 100 mg PO HS [facility] Last Admin: 11/24/17 22:50 Dose: 100 mg - Objective Vital Signs: Vital Signs Temperature 99.6 F 11/25/17 07:01 Pulse Rate 82 11/25/17 07:01 Respiratory Rate 20 11/25/17 07:01 Blood Pressure 108/68 11/25/17 07:01 O2 Sat by Pulse Oximetry (%) 98 11/24/17 21:00 Constitutional: Yes: No Distress, Calm Cardiovascular: Yes: Regular Rate and Rhythm Respiratory: Yes: Regular, CTA Bilaterally Gastrointestinal: Yes: Normal Bowel Sounds, Soft Musculoskeletal: Yes: WNL Extremities: Yes: WNL Neurological: Yes: Alert, Oriented Psychiatric: Yes: Alert, Oriented Labs: CBC, BMP 11/24/17 12:20 11/24/17 12:20 INR, PTT INR 1.58 (0.82-1.09) H 11/19/17 06:20 Fibrinogen 181.0 mg/dL (238-498) L 11/15/17 07:05 Assessment/Plan Assessment/Plan (1) Alcoholic cirrhosis of liver Code(s): K70.30 - ALCOHOLIC CIRRHOSIS OF LIVER WITHOUT ASCITES Qualifiers: Ascites presence: with ascites Qualified Code(s): K70.31 - Alcoholic cirrhosis of liver with ascites (2) Pancytopenia Code(s): D61.818 - OTHER PANCYTOPENIA (3) Alcohol dependence with uncomplicated withdrawal Code(s): F10.230 - ALCOHOL DEPENDENCE WITH WITHDRAWAL, UNCOMPLICATED (4) Hypokalemia Code(s): E87.6 - HYPOKALEMIA (5) Hypomagnesemia Code(s): E83.42 - HYPOMAGNESEMIA (6) Hypophosphatemia Code(s): E83.39 - OTHER DISORDERS OF PHOSPHORUS METABOLISM (7) Splenomegaly Code(s): R16.1 - SPLENOMEGALY, NOT ELSEWHERE CLASSIFIED (8) Coagulopathy (9) Hypothyroid Code(s): E03.9 - HYPOTHYROIDISM, UNSPECIFIED Qualifiers: (10) Falling episodes Code(s): R29.6 - REPEATED FALLS (11) UTI (urinary tract infection) Code(s): N39.0 - URINARY TRACT INFECTION, SITE NOT SPECIFIED (12) Hepatic encephalopathy Code(s): K72.90 - HEPATIC FAILURE, UNSPECIFIED WITHOUT COMA plan' continue as per detox continue abx complete the abx course nutrition rest as per the team physio
[2017-11-25] MEDS: hydrOXYzine HCL 25 MG TABLET (FP) PO PRN (21:06)
[2017-11-25] MEDS: TEMAZEPAM 15 MG CAPSULE PO SCH (21:06)
[2017-11-25] MEDS: THIAMINE HCL 100 MG TABLET (FP) PO SCH (21:06)
[2017-11-26] MEDS: LEVOTHYROXINE NA 100 MCG TABLET (FP) PO SCH (06:20)
[2017-11-26] MEDS: ERTAPENEM SODIUM 1 GM in SODIUM CHLORIDE 100 ML IVPB SCH (09:56)
[2017-11-26] MEDS: PRENATAL VITAMINS W/ FOLIC ACID TABLET (FP) PO SCH (09:56)
[2017-11-26] MEDS: MAGNESIUM OXIDE 400 MG TABLET (FP) PO SCH ×2 (09:56→22:20)
[2017-11-26] MEDS: FOLIC ACID 1 MG TABLET (FP) PO SCH (09:56)
[2017-11-26] MEDS: PANTOPRAZOLE 40 MG TABLET (FP) PO SCH ×2 (09:56→22:20)
[2017-11-26] MEDS: LACTULOSE 20 GM/30 ML UDC (FOR ORAL USE ONLY) PO SCH (09:56)
--- NOTE | 2017-11-26 11:39 | PN ---
Progress Note, Physician History of Present Illness: stable no complaints looks much better working with physio - Current Medication List Current Medications: Active Medications Artificial Tears (Artificial Tears) 1 drop OU BID PRN PRN Reason: DRY EYES Last Admin: 11/21/17 10:19 Dose: 1 drop Folic Acid (Folic Acid -) 1 mg PO DAILY [facility] Last Admin: 11/26/17 09:56 Dose: 1 mg Hydroxyzine HCl (Atarax -) 25 mg PO Q8H PRN PRN Reason: FOR ITCHING Last Admin: 11/25/17 21:06 Dose: 25 mg IV Flush (Picc Line Flush) 8 ml IVPUSH PRN PRN PRN Reason: Protocol Ertapenem 1 gm/ Sodium (Chloride) 100 mls @ 200 mls/hr IVPB DAILY [facility] PRN Reason: Protocol Last Admin: 11/26/17 09:56 Dose: 200 mls/hr Lactulose (Cephulac (Oral Use)) 20 gm PO DAILY [facility] Last Admin: 11/26/17 09:56 Dose: 20 gm Levothyroxine Sodium (Synthroid -) 100 mcg PO DAILY@0700 [facility] Last Admin: 11/26/17 06:20 Dose: 100 mcg Magnesium Oxide (Mag-Ox -) 400 mg PO BID [facility] Last Admin: 11/26/17 09:56 Dose: 400 mg Pantoprazole Sodium (Protonix -) 40 mg PO BID [facility] Last Admin: 11/26/17 09:56 Dose: 40 mg Multivit/Folic Acid/Iron ( Vitamins (Sjr) -) 1 tab PO DAILY [facility] Last Admin: 11/26/17 09:56 Dose: 1 tab Temazepam (Restoril -) 15 mg PO [facility] Last Admin: 11/25/17 21:06 Dose: 15 mg Thiamine HCl (Vitamin B1 -) 100 mg PO [facility] Last Admin: 11/25/17 21:06 Dose: 100 mg - Objective Vital Signs: Vital Signs Temperature 99.3 F 11/26/17 06:37 Pulse Rate 82 11/26/17 06:37 Respiratory Rate 20 11/26/17 06:37 Blood Pressure 104/64 11/26/17 06:37 O2 Sat by Pulse Oximetry (%) 98 11/25/17 22:00 Constitutional: Yes: No Distress, Calm, Obese HENT: Yes: Atraumatic Cardiovascular: Yes: Regular Rate and Rhythm Respiratory: Yes: Regular, CTA Bilaterally Gastrointestinal: Yes: Normal Bowel Sounds, Soft Musculoskeletal: Yes: WNL Extremities: Yes: WNL Neurological: Yes: Alert, Oriented Psychiatric: Yes: Alert, Oriented Labs: CBC, BMP 11/24/17 12:20 11/24/17 12:20 INR, PTT INR 1.58 (0.82-1.09) H 11/19/17 06:20 Fibrinogen 181.0 mg/dL (238-498) L 11/15/17 07:05 Assessment/Plan Assessment/Plan (1) Alcoholic cirrhosis of liver Code(s): K70.30 - ALCOHOLIC CIRRHOSIS OF LIVER WITHOUT ASCITES Qualifiers: Ascites presence: with ascites Qualified Code(s): K70.31 - Alcoholic cirrhosis of liver with ascites (2) Pancytopenia Code(s): D61.818 - OTHER PANCYTOPENIA (3) Alcohol dependence with uncomplicated withdrawal Code(s): F10.230 - ALCOHOL DEPENDENCE WITH WITHDRAWAL, UNCOMPLICATED (4) Hypokalemia Code(s): E87.6 - HYPOKALEMIA (5) Hypomagnesemia Code(s): E83.42 - HYPOMAGNESEMIA (6) Hypophosphatemia Code(s): E83.39 - OTHER DISORDERS OF PHOSPHORUS METABOLISM (7) Splenomegaly Code(s): R16.1 - SPLENOMEGALY, NOT ELSEWHERE CLASSIFIED (8) Coagulopathy (9) Hypothyroid Code(s): E03.9 - HYPOTHYROIDISM, UNSPECIFIED Qualifiers: (10) Falling episodes Code(s): R29.6 - REPEATED FALLS (11) UTI (urinary tract infection) Code(s): N39.0 - URINARY TRACT INFECTION, SITE NOT SPECIFIED (12) Hepatic encephalopathy Code(s): K72.90 - HEPATIC FAILURE, UNSPECIFIED WITHOUT COMA plan' continue as per detox continue abx complete the abx course nutrition rest as per the team physio tomorrow will be the last day of abx
--- NOTE | 2017-11-26 12:02 | PN ---
Progress Note, Physician Chief Complaint: Pt lying in bed in no acute distress. Denies any chest pain, n/v/d, unilateral weakness. - Current Medication List Current Medications: Active Medications Artificial Tears (Artificial Tears) 1 drop OU BID PRN PRN Reason: DRY EYES Last Admin: 11/21/17 10:19 Dose: 1 drop Folic Acid (Folic Acid -) 1 mg PO DAILY [facility] Last Admin: 11/26/17 09:56 Dose: 1 mg Hydroxyzine HCl (Atarax -) 25 mg PO Q8H PRN PRN Reason: FOR ITCHING Last Admin: 11/25/17 21:06 Dose: 25 mg IV Flush (Picc Line Flush) 8 ml IVPUSH PRN PRN PRN Reason: Protocol Ertapenem 1 gm/ Sodium (Chloride) 100 mls @ 200 mls/hr IVPB DAILY [facility] PRN Reason: Protocol Last Admin: 11/26/17 09:56 Dose: 200 mls/hr Lactulose (Cephulac (Oral Use)) 20 gm PO DAILY [facility] Last Admin: 11/26/17 09:56 Dose: 20 gm Levothyroxine Sodium (Synthroid -) 100 mcg PO DAILY@0700 [facility] Last Admin: 11/26/17 06:20 Dose: 100 mcg Magnesium Oxide (Mag-Ox -) 400 mg PO BID [facility] Last Admin: 11/26/17 09:56 Dose: 400 mg Pantoprazole Sodium (Protonix -) 40 mg PO BID [facility] Last Admin: 11/26/17 09:56 Dose: 40 mg Multivit/Folic Acid/Iron ( Vitamins (Sjr) -) 1 tab PO DAILY [facility] Last Admin: 11/26/17 09:56 Dose: 1 tab Temazepam (Restoril -) 15 mg PO [facility] Last Admin: 11/25/17 21:06 Dose: 15 mg Thiamine HCl (Vitamin B1 -) 100 mg PO HS [facility] Last Admin: 11/25/17 21:06 Dose: 100 mg - Objective Vital Signs: Vital Signs Temperature 99.3 F 11/26/17 06:37 Pulse Rate 82 11/26/17 06:37 Respiratory Rate 20 11/26/17 06:37 Blood Pressure 104/64 11/26/17 06:37 O2 Sat by Pulse Oximetry (%) 98 11/25/17 22:00 Constitutional: Yes: Well Nourished, No Distress Cardiovascular: Yes: WNL, Regular Rate and Rhythm. No: Murmur, Rub Respiratory: Yes: WNL, Regular, CTA Bilaterally. No: Accessory Muscle Use, Rhonchi, SOB, Tachypnea Gastrointestinal: Yes: WNL, Normal Bowel Sounds, Soft, Abdomen, Obese. No: Distention, Tenderness Genitourinary: Yes: WNL Edema: No Neurological: Yes: Alert, Oriented, Confusion (intermittent), Tremors Psychiatric: Yes: WNL, Alert, Oriented Labs: CBC, BMP 11/24/17 12:20 11/24/17 12:20 INR, PTT INR 1.58 (0.82-1.09) H 11/19/17 06:20 Fibrinogen 181.0 mg/dL (238-498) L 11/15/17 07:05 Problem List - Problems (1) Alcoholic cirrhosis of liver Code(s): K70.30 - ALCOHOLIC CIRRHOSIS OF LIVER WITHOUT ASCITES Qualifiers: Ascites presence: with ascites Qualified Code(s): K70.31 - Alcoholic cirrhosis of liver with ascites (2) Pancytopenia Code(s): D61.818 - OTHER PANCYTOPENIA (3) Alcohol dependence with uncomplicated withdrawal Code(s): F10.230 - ALCOHOL DEPENDENCE WITH WITHDRAWAL, UNCOMPLICATED (4) Hypokalemia Code(s): E87.6 - HYPOKALEMIA (5) Hypomagnesemia Code(s): E83.42 - HYPOMAGNESEMIA (6) Hypophosphatemia Code(s): E83.39 - OTHER DISORDERS OF PHOSPHORUS METABOLISM (7) Splenomegaly Code(s): R16.1 - SPLENOMEGALY, NOT ELSEWHERE CLASSIFIED (8) Cocaine abuse Code(s): F14.10 - COCAINE ABUSE, UNCOMPLICATED (9) Hypothyroid Code(s): E03.9 - HYPOTHYROIDISM, UNSPECIFIED Qualifiers: (10) Hyperbilirubinemia Code(s): E80.6 - OTHER DISORDERS OF BILIRUBIN METABOLISM (11) Falling episodes Code(s): R29.6 - REPEATED FALLS (12) UTI (urinary tract infection) Code(s): N39.0 - URINARY TRACT INFECTION, SITE NOT SPECIFIED (13) Hepatic encephalopathy Code(s): K72.90 - HEPATIC FAILURE, UNSPECIFIED WITHOUT COMA Assessment/Plan (1) Alcoholic cirrhosis of liver Assessment/Plan: admitted w/ severe pancytopenia abd CT w/ cirrhosis, splenomegaly heme-occult neg nadolol ammonia level elevation trending down lactulose/rifaximin case discussed with GI, plan for egd outpt 2-3 weeks per discussed with pt importance of abstaining from alcohol post discharge Code(s): K70.30 - ALCOHOLIC CIRRHOSIS OF LIVER WITHOUT ASCITES Qualifiers: Ascites presence: with ascites Qualified Code(s): K70.31 - Alcoholic cirrhosis of liver with ascites (2) Pancytopenia Assessment/Plan: as above, h/h stable plt normal transf threshold transfuse plts per hematology monitor cbc PPI discussed with hematology, pt cleared from hematology stand point Code(s): D61.818 - OTHER PANCYTOPENIA (3) Alcohol dependence with uncomplicated withdrawal Assessment/Plan: Blood Alcohol level- 322, CIWA-2 completed librium detox replete electrolytes as needed thiamine/folic acid nutrition consult [facility]-detox team following Dispo: possibly outpt rehab when clinically stable Code(s): F10.230 - ALCOHOL DEPENDENCE WITH WITHDRAWAL, UNCOMPLICATED (4) Hypokalemia Assessment/Plan: as above replete as needed monitor bmp Code(s): E87.6 - HYPOKALEMIA (5) Hypomagnesemia Assessment/Plan: repleted monitor bmp Code(s): E83.42 - HYPOMAGNESEMIA (6) Hypophosphatemia Assessment/Plan: improved Code(s): E83.39 - OTHER DISORDERS OF PHOSPHORUS METABOLISM (7) Splenomegaly Assessment/Plan: secondary to portal htn will monitor Code(s): R16.1 - SPLENOMEGALY, NOT ELSEWHERE CLASSIFIED (8) Cocaine abuse Assessment/Plan: urine neg detox plan as above Code(s): F14.10 - COCAINE ABUSE, UNCOMPLICATED (9) Hypothyroid Assessment/Plan: stable continue levothyroixine Code(s): E03.9 - HYPOTHYROIDISM, UNSPECIFIED Qualifiers: (10) Hyperbilirubinemia Assessment/Plan: secondary to advanced liver disease hepatic panel reviewed Code(s): E80.6 - OTHER DISORDERS OF BILIRUBIN METABOLISM (11) Falling episodes Assessment/Plan: hx of falls secondary to alcohol intoxication head CT neg abd/pelvis ct chronic T11/L1 compression fractures fall risk precautions Code(s): R29.6 - REPEATED FALLS (12) UTI (urinary tract infection) Assessment/Plan: UC grew ecoli,esbl prod Ertapenem day 13 ID following Code(s): N39.0 - URINARY TRACT INFECTION, SITE NOT SPECIFIED (13) Hepatic encephalopathy Assessment/Plan: NH4 elevation lactulose/rifaximine Code(s): K72.90 - HEPATIC FAILURE, UNSPECIFIED WITHOUT COMA Dispo: Pt refuses SNF, psych consulted to assess capacity. Antibiotic course will be completed in 3 days and pt will be medically cleared for d/c. Pt expressed she would like to do outpt drug rehab, informed SW. Anticipated discharge 11/27.
--- NOTE | 2017-11-26 17:42 | PN ---
Mental Health Exam - Mental Status Exam Alert and Oriented to: Time, Place, Person Cognitive Function: Grossly Intact Patient Appearance: Unkempt Mood: Apathetic, Apprehensive, Hopeful Affect: Appropriate Patient Behavior: Dependent, Talkative, Cooperative Speech Pattern: Clear Voice Loudness: Normal Thought Process: Intact Thought Disorder: Not Present Hallucinations: None Suicidal Ideation: None Homicidal Ideation: None Insight/Judgement: Impaired Sleep: Fair Appetite: Fair Muscle strength/Tone: Mild Hypotonicity Gait/Station: Deferred Additional Comments: cALLED TO SEE PATIENT WITH >25 YAER HISTORY OF CHRONIC SEVERE ALCHOL ABUSE, SUBSTANCE ABUSE MOOD DISORDER, DENIES si, hi ah OR vh. rEQUEST A 90 DAY REHAB. nOT IN ACUTE DANGER NOW, TO OTHERS OR SELF. mOTIVATION IS INCREASING FOR SOBERITY. rEQUEST THERAPY, DUAL DIAGNOSIS TREATMENT, CLINIC UPON DISCHARGE. sUPPORTIVE THERAPY. nOT WILLING TO CONSIDER MOOD DISORDER MEDS NOW. iN PAST HAS TRIED MULTIPLE ssri WITH MOININAL EFFECT SHE IS NON ADHERENT.
[2017-11-26] MEDS: THIAMINE HCL 100 MG TABLET (FP) PO SCH (22:00)
[2017-11-26] MEDS: TEMAZEPAM 15 MG CAPSULE PO SCH (22:20)
[2017-11-27] MEDS: LEVOTHYROXINE NA 100 MCG TABLET (FP) PO SCH (06:27)
[2017-11-27 06:55] VITALS: PULSE 78; TEMP 98.5
[2017-11-27] MEDS ORDERED: PT OWN MED DRAWER 7, Y5N ONE (10:00)
[2017-11-27] MEDS: ERTAPENEM SODIUM 1 GM in SODIUM CHLORIDE 100 ML IVPB SCH (10:01)
[2017-11-27] MEDS: PANTOPRAZOLE 40 MG TABLET (FP) PO SCH (10:05)
[2017-11-27] MEDS: PRENATAL VITAMINS W/ FOLIC ACID TABLET (FP) PO SCH (10:05)
[2017-11-27] MEDS: MAGNESIUM OXIDE 400 MG TABLET (FP) PO SCH (10:05)
[2017-11-27] MEDS: LACTULOSE 20 GM/30 ML UDC (FOR ORAL USE ONLY) PO SCH (10:05)
[2017-11-27] MEDS: FOLIC ACID 1 MG TABLET (FP) PO SCH (10:05)
[2017-11-27 11:07] VITALS: BP 110/60
--- NOTE | 2017-11-27 11:30 | DS ---
Physical Examination Vital Signs: Vital Signs Temperature 98.5 F 11/27/17 11:06 Pulse Rate 78 11/27/17 11:06 Respiratory Rate 18 11/27/17 11:06 Blood Pressure 110/60 11/27/17 11:06 O2 Sat by Pulse Oximetry (%) 98 11/26/17 21:00 Constitutional: Yes: Well Nourished, No Distress Cardiovascular: Yes: WNL, Regular Rate and Rhythm Respiratory: Yes: WNL, Regular, CTA Bilaterally Gastrointestinal: Yes: WNL, Normal Bowel Sounds, Soft, Abdomen, Obese. No: Distention, Tenderness Renal/: Yes: WNL Edema: No Neurological: Yes: WNL, Alert, Oriented Psychiatric: Yes: WNL, Alert, Oriented Labs: CBC, BMP 11/24/17 12:20 11/24/17 12:20 Discharge Summary Reason For Visit: THROMBOCYTOPENIA, INTOX, CIRRHOSIS Current Active Problems Acute alcohol intoxication (Acute) Advanced cirrhosis of liver (Acute) Alcoholic cirrhosis of liver (Acute) DVT prophylaxis (Acute) Decreased platelet count (Acute) ESBL (extended spectrum beta-lactamase) producing bacteria infection (Acute) Epistaxis (Acute) Gait disorder (Acute) Hepatic encephalopathy (Acute) Hyperbilirubinemia (Acute) Hypokalemia (Acute) Hypomagnesemia (Acute) Hypophosphatemia (Acute) Intoxication (Acute) Pancytopenia (Acute) Splenomegaly (Acute) Thrombocytopenia (Acute) Thrombocytopenia concurrent with and due to alcoholism (Acute) UTI (urinary tract infection) (Acute) Hospital Course: is a 56-year-old female with a history of alcoholism with Liver cirrhosis, positive blood alcohol levels on admission, severe thrombocytopenia, multiple bruises and hematomas admitted with significant anemia without stigmata of recent, or ongoing GI blood loss. Pt has been transfused with platelets and prbcs and managed successfully in ICU. She has been evaluated by GI. Plan for EGD outpt when plts stabilizes. Advised pt to f/u with in 2-3 weeks. She has also been detoxed while here and resources have been provided to pt regarding outpt drug rehab. Her stay was c/b UTI-ecoli/esbl in which she required 14 day course of ertapenem. ID consult appreciated. Today, she is doing well. Hemodynamically stable, plts trending up and stable. She has been working well with PT, gait unsteady. SNF option was offered to pt and pt refuses. Pt has been seen by psych who noted she has full capacity to make decision. She has completed antibiotic course and is medically cleared for discharge. Pt advised to abstain from alcohol and attend drug rehab therapy. Condition: Fair - Instructions Diet, Activity, Other Instructions: low fat diet , ambulate as tolerated f/u w/ PCP in 1 week Follow with PCP for the 2 and 3 HBV injections. outpt rehab as discussed by Emergency Communications Officer/MAX meds sent to pharmacy PT HAS APPT AT [facility] [address] DECEMBER 23 AT 1PM OTPT REHAB. Referrals: Martin Reynoso MD [Staff Physician] - 2 Weeks Patricia Jett MD [Staff Physician] - 2 Weeks Wilmar Jeong MD [Staff Physician] - 1 Week [facility]position: [facility] - Home Medications Comprehensive Discharge Medication List: Ambulatory Orders Folic Acid - 1 mg PO DAILY #30 tablet 11/27/17 Lactulose (Oral Use) [Cephulac -] 20 gm PO DAILY #30 udc 11/27/17 Levothyroxine [Synthroid -] 100 mcg PO DAILY@0700 #30 tablet 11/27/17 Magnesium Oxide [Mag-Ox -] 400 mg PO BID #60 tablet 11/27/17 Pantoprazole Sodium [Protonix -] 40 mg PO BID #60 tablet.ec 11/27/17 Vitamins (Sjr) - 1 tab PO DAILY #30 tablet 11/27/17 Temazepam [Restoril -] 15 mg PO HS #30 capsule MDD 30 11/27/17 Thiamine HCl [Vitamin B1 -] 100 mg PO HS #30 tablet 11/27/17 hydrOXYzine HCL [Atarax -] 25 mg PO Q8H PRN #14 tablet 11/27/17
== END 2017-11-27 12:09 | disposition home or self-care (01) | DRG 661 ==
LOC: JER 19:15 → JERBED 11-12 00:43 → JICU 11-12 03:13 → J7W 11-13 15:38 → J8W 11-14 18:15
PROVIDERS: ADMIT Internal Medicine; ATTEND Internal Medicine
PROC: 30233R1 Transfusion of Nonautologous Platelets into Peripheral Vein, Percutaneous Approach (ICD-10-PCS; principal; 2017-11-12)
PROC: 30233N1 Transfusion of Nonautologous Red Blood Cells into Peripheral Vein, Percutaneous Approach (ICD-10-PCS; 2017-11-12)
DX: D69.6 Thrombocytopenia, unspecified (principal); D61.818 Other pancytopenia; N17.9 Acute kidney failure, unspecified; E83.39 Other disorders of phosphorus metabolism; N39.0 Urinary tract infection, site not specified; D68.9 Coagulation defect, unspecified; K76.6 Portal hypertension; E83.42 Hypomagnesemia; K21.9 Gastro-esophageal reflux disease without esophagitis; F14.10 Cocaine abuse, uncomplicated; K70.30 Alcoholic cirrhosis of liver without ascites; F19.94 Other psychoactive substance use, unspecified with psychoactive substance-induced mood disorder; D64.9 Anemia, unspecified; R16.1 Splenomegaly, not elsewhere classified; F10.230 Alcohol dependence with withdrawal, uncomplicated; F10.220 Alcohol dependence with intoxication, uncomplicated; K72.90 Hepatic failure, unspecified without coma; E87.6 Hypokalemia; E03.9 Hypothyroidism, unspecified; R29.6 Repeated falls; E80.6 Other disorders of bilirubin metabolism; E66.9 Obesity, unspecified; Z68.28 Body mass index [BMI] 28.0-28.9, adult; B96.20 Unspecified Escherichia coli [E. coli] as the cause of diseases classified elsewhere; R26.81 Unsteadiness on feet; R04.0 Epistaxis; Y90.8 Blood alcohol level of 240 mg/100 ml or more
CPT/HCPCS: 36415; 36430; 36511; 70450-TC; 71045-TC-FY; 74176-TC; 80048; 80053; 80076; 80307; 81003; 81015; 82140; 82272; 82550; 82553; 82607; 82728; 83540; 83550; 83735; 83880; 84100; 84132; 84425; 84443; 84484; 85025; 85027; 85384; 85610; 85730; 86704; 86706; 86708; 86850; 86900; 86901; 86922; 87086; 87186; 87340; 93005; 93010; 97116-GP; 97161-GP; 99285-25; J7030; P9034; P9038; P9058

== ENCOUNTER 2017-12-13 03:40 | Inpatient (IN) | payer OTHER ==
--- NOTE | 2017-12-13 04:39 | PDOC ---
History of Present Illness - General Chief Complaint: Injury Stated Complaint: FALL Time Seen by Provider: 12/13/17 03:55 History Source: Patient, Significant Other Exam Limitations: No Limitations - History of Present Illness Initial Comments: 12/13/17 04:31 The patient is a 57F with a PMH of alcoholic cirrhosis, hypothyroid disease, thrombocytopenia, anemia, and acid reflux who presents to the ER with complaints after a fall. The patient states that she has had multiple falls over the past 2 days. 2 days ago the patient fell backwards hitting her back on her boyfriend's nightstand and sustained an abrasion on her back with bruising. Today, she fell and hit her head earlier yesterday, then hit her chin prior to presentation and it was bleeding so she decided to come to the ED. The patient has no acute complaints besides the bruising and is concerned she needs stitches. Past History - Past Medical History Allergies/Adverse Reactions: Allergies Allergy/AdvReac Type Severity Reaction Status Date / Time lamotrigine [From Lamictal] Allergy Verified 11/11/17 20:04 lorazepam [From Ativan] Allergy Rash Verified 12/15/17 05:14 Home Medications: Ambulatory Orders Folic Acid 1 mg PO DAILY #30 tablet 11/27/17 Levothyroxine [Synthroid -] 100 mcg PO DAILY@0700 #30 tablet 11/27/17 Magnesium Oxide [Mag-Ox -] 400 mg PO BID #60 tablet 11/27/17 Pantoprazole Sodium [Protonix -] 40 mg PO BID #60 tablet.ec 11/27/17 Thiamine HCl [Vitamin B1 -] 100 mg PO HS #30 tablet 11/27/17 Lactulose (Oral Use) [Cephulac -] 20 gm PO TID udc 12/23/17 Vitamins (Sjr) - 1 tab PO DAILY tablet 12/23/17 Anemia: No Asthma: No Cancer: No Cardiac Disorders: No CVA: No COPD: No CHF: No Dementia: No Diabetes: No GI Disorders: Yes (ACID REFLUX) Disorders: No HTN: No Hypercholesterolemia: No Kidney Stones: No Liver Disease: Yes (Cirrhosis) Seizures: No Thyroid Disease: Yes (HYPOTHYROID DISEASE) - Surgical History Abdominal Surgery: No Appendectomy: No Cardiac Surgery: No Cholecystectomy: No Lung Surgery: No Neurologic Surgery: No Orthopedic Surgery: Yes (L ankle 12/08) - Reproductive History PID: No - Suicide/Smoking/Psychosocial Hx Smoking Status: No Smoking History: Never smoked Have you smoked in the past 12 months: No Number of Cigarettes Smoked Daily: 0 Information on smoking cessation initiated: No Hx Alcohol Use: No Drug/Substance Use Hx: No Substance Use Type: Alcohol, Cocaine Hx Substance Use Treatment: Yes ([facility] dtox in past, now outpatient) Review of Systems - Review of Systems Able to Perform ROS?: Yes Comments:: 12/13/17 05:09 GENERAL/CONSTITUTIONAL: Positive for fall. No fever or chills. No weakness. HEAD, EYES, EARS, NOSE AND THROAT: No change in vision. No ear pain or discharge. No sore throat. CARDIOVASCULAR: No chest pain, palpitations, or lightheadedness. RESPIRATORY: No cough, wheezing, shortness of breath, or hemoptysis. GASTROINTESTINAL: No nausea, vomiting, diarrhea, constipation, or abdominal pain. GENITOURINARY: No dysuria, frequency, hematuria, or change in urination. MUSCULOSKELETAL: No joint or muscle swelling or pain. No neck or back pain. SKIN: Positive for laceration on chin, bruising on shoulder, bruise on eye, and abrasion on back. NEUROLOGIC: No headache, numbness, tingling, weakness, loss of consciousness, or change in strength/sensation. ENDOCRINE: No increased thirst. No abnormal weight change. HEMATOLOGIC/LYMPHATIC: Positive for thrombocytopenia. No anemia or history of blood clots. ALLERGIC/IMMUNOLOGIC: No hives or skin allergy. Is the patient limited Ukrainian proficient: No *Physical Exam - Vital Signs Last Vital Signs Temp Pulse Resp BP Pulse Ox 97.4 F L 102 H 16 154/81 97 12/13/17 03:52 12/13/17 03:52 12/13/17 03:52 12/13/17 03:52 12/13/17 03:52 - Physical Exam Comments: 12/13/17 05:10 GENERAL: Well developed, well nourished. Awake and alert. No acute distress. HEENT: Normocephalic, atraumatic. Hearing grossly normal. Moist mucous membranes. PERRLA, EOMI. No conjunctival pallor. Sclera are non-icteric. Oropharynx is clear. 0.5 cm abrasion/laceration present on chin. Ecchymosis on L eye. NECK: Supple. Full ROM. CARDIOVASCULAR: Regular rate and rhythm. No murmurs, rubs, or gallops. PULMONARY: No evidence of respiratory distress. Lungs clear to auscultation bilaterally. No wheezing, rales or rhonchi. ABDOMINAL: Soft. Non-tender. Non-distended. No rebound or guarding. GENITOURINARY: No CVA tenderness bilaterally. MUSCULOSKELETAL: Normal range of motion at all joints. No bony deformities or tenderness. EXTREMITIES: No cyanosis. No clubbing. No edema. No calf tenderness or swelling. SKIN: Abrasion with ecchymosis on thoracic R back [id number] with 4cm linear, very superficial laceration; bruising on L shoulder. Warm and dry. Normal capillary refill. No rashes. No jaundice. NEUROLOGICAL: Alert, awake, appropriate. Cranial nerves 2-12 intact. Slurred speech. Gait is normal without ataxia. PSYCHIATRIC: Cooperative. Good eye contact. Appropriate mood and affect. Procedures - Laceration/Wound Repair Lower Medial Face Wound Length: to 2.5 cm Wound Explored: clean Wound's Depth, Shape: superficial Irrigated w/ Saline: Yes Betadine Prep: No Anesthesia: 1% Lidocaine Amount of Anesthetic (ccs): 1 Wound Debrided: minimal Wound Repaired With: Sutures Suture Size/Type: 5:0, other (absorbable) Layer Closure: No Sterile Dressing Applied: Yes Splint Applied: No Sling Applied: No ED Treatment Course - LABORATORY CBC & Chemistry Diagram: 12/23/17 06:00 12/23/17 06:00 - RADIOLOGY Radiology Studies Ordered: Category Date Time Status CERVICAL SPINE CT W/O CONTR [CT] Stat CT Scan 12/13/17 04:[address] W/O CONTRAST [CT] Stat CT Scan 12/13/17 04:[address] WITHOUT CONTRAST [CT] Stat CT Scan 12/13/17 04:16 Ordered Medical Decision Making - Medical Decision Making 12/13/17 05:13 The patient is a 57F, intoxicated, presenting to the ER after having a fall. She is with her boyfriend who provides some of the history. Pt's history is unreliable and she has a hx of severe thrombocytopenia so I will get labs including PT/INR. Imaging will include CT head d/t trauma, CT neck and facial bones. Pending labs/imaging. 12/13/17 06:38 I have sutured the patient's chin lac with 5-0 absorbable sutures 2/2 to lack of f/u. Pt is bleeding but I placed a pressure dressing over it. 3 sutures were placed. CXR negative on preliminary read. Pending CTH/CT neck/CT facial bones read. Labs significant for platelets of 54, baseline for pt. Other labs negative/ unchanged from previous. 12/13/17 06:54 Pt signed out to Dr. King, day team. *DC/Admit/Observation/Transfer Diagnosis at time of Disposition: Hematoma - Discharge Dispostion Condition at time of disposition: Stable - Referrals - Patient Instructions - Post Discharge Activity
--- NOTE | 2017-12-13 04:40 | PDOC ---
Attending Attestation - Resident Resident Name: Delfino Black - ED Attending Attestation I have performed the following: I have examined & evaluated the patient, The case was reviewed & discussed with the resident, I agree w/resident's findings & plan - HPI HPI: 12/13/17 04:39 Pt comes with multiple bruises after multiple falls in her alcoholic state. Pt s requesting detox. She has a bleeding chin laceration and multiple bruises all over her body. - Physicial Exam PE: 12/13/17 07:06 Agree with resident exam - Medical Decision Making 12/14/17 06:13 Pt signed out to the day team to disposition once labs and imaging return
[2017-12-13 05:14] LABS: BASO % 0.6 % (0-2.0); HEMATOCRIT 31.7 % (32.4-45.2); HEMOGLOBIN 10.8 GM/dL (10.7-15.3); LYMPH % 33.2 % (8-40); MCH 33.7 pg (25.7-33.7); MCHC 34.1 g/dl (32.0-36.0); MEAN CELL VOLUME 98.9 fl (80-96); MEAN PLT VOLUME 8.9 fl (7.5-11.1); NEUT % 59.2 % (42.8-82.8); PLATELET COUNT 56 K/MM3 (134-434); RDW 18.9 % (11.6-15.6); WHITE BLOOD COUNT 7.9 K/mm3 (4.0-10.0)
[2017-12-13 05:46] LABS: INR 1.41 (0.82-1.09); PROTHROMBIN TIME (PATIENT) 15.9 SEC (9.7-13.0)
[2017-12-13 05:58] LABS: ALBUMIN 3.2 g/dl (3.4-5.0); ALK PHOS 215 U/L (45-117); ANION GAP 13 (8-16); BILIRUBIN,TOTAL 3.3 mg/dL (0.2-1.0); BLOOD UREA NITROGEN 10 mg/dL (7-18); CHLORIDE 104 mmol/L (98-107); CO2 23 mmol/L (21-32); CREATININE 1.1 mg/dL (0.55-1.02); GLUCOSE,RANDOM 160 mg/dL (74-106); POTASSIUM 3.4 mmol/L (3.5-5.1); SGOT/AST 77 U/L (15-37); SGPT/ALT 22 U/L (12-78); SODIUM 140 mmol/L (136-145); TOT PROT 7.9 g/dl (6.4-8.2)
[2017-12-13 06:02] LABS: URINE APPEARANCE SLCLOUDY; URINE BILIRUBIN NEGATIVE (<2.0 mg/dL); URINE COLOR YELLOW; URINE GLUCOSE (UA) NEGATIVE (NEGATIVE); URINE KETONE TRACE (NEGATIVE); URINE LEUK ESTERASE NEGATIVE (NEGATIVE); URINE NITRITE POSITIVE (NEGATIVE); URINE PROTEIN NEGATIVE (NEGATIVE)
[2017-12-13 06:16] LABS: EPI CELLS RARE /HPF (FEW); URINE BACTERIA MANY /hpf (NONE SEEN); URINE HYALINE CAST 1 /lpf; URINE MUCUS RARE
[2017-12-13] MEDS ORDERED: FOLIC ACID INJECTION - 1 MG, THIAMINE HCL 100 MG, MULTIVIT INJECTION ADULT 10 ML in SOD... IVPB ONE (07:07)
--- NOTE | 2017-12-13 08:21 | PDOC ---
*Physical Exam - Vital Signs Last Vital Signs Temp Pulse Resp BP Pulse Ox 97.4 F L 102 H 16 154/81 97 12/13/17 03:52 12/13/17 03:52 12/13/17 03:52 12/13/17 03:52 12/13/17 03:52 - Physical Exam Comments: 12/13/17 10:13 GENERAL: Awake, alert, and fully oriented, in no acute distress HEAD: Hematoma over left eye BACK: No midline tenderness, 07t56mm hematoma over right aspect of back EYES: PERRLA, EOMI, sclera anicteric, conjunctiva clear ENT: Auricles normal inspection, hearing grossly normal, nares patent, oropharynx clear without exudates. Moist mucosa NECK: Normal ROM, supple, no lymphadenopathy, JVD, or masses, no midline tenderness LUNGS: No distress, speaks full sentences, clear to auscultation bilaterally HEART: Regular rate and rhythm, normal S1 and S2, no murmurs, rubs or gallops, peripheral pulses normal and equal bilaterally. ABDOMEN: Soft, nontender, normoactive bowel sounds. No guarding, no rebound. No masses NEUROLOGICAL: Cranial nerves II through XII grossly intact. Normal speech, no focal sensorimotor deficits SKIN: Warm, Dry, normal turgor, no rashes or lesions noted. ED Treatment Course - LABORATORY CBC & Chemistry Diagram: 12/13/17 04:26 12/13/17 04:26 - ADDITIONAL ORDERS Additional order review: Laboratory Results 12/13/17 12/13/17 12/13/17 05:48 04:26 04:26 PT with INR 15.90 H INR 1.41 H Sodium Potassium Chloride Carbon Dioxide Anion Gap BUN Creatinine Creat Clearance w eGFR Random Glucose Calcium Total Bilirubin AST ALT Alkaline Phosphatase Total Protein Albumin Urine Color Yellow Urine Appearance Slcloudy Urine pH 6.0 Ur Specific [place] 1.006 Urine Protein Negative Urine Glucose (UA) Negative Urine Ketones Trace H Urine Blood Negative Urine Nitrite Positive Urine Bilirubin Negative Urine Urobilinogen 2.0 H Ur Leukocyte Esterase Negative Urine WBC (Auto) 1 Urine RBC (Auto) <1 Ur Epithelial Cells Rare Urine Bacteria Many Hyaline Casts 1 Urine Mucus Rare Alcohol, Quantitative 368.60 H* 12/13/17 04:26 PT with INR INR Sodium 140 Potassium 3.4 L Chloride 104 Carbon Dioxide 23 Anion Gap 13 BUN 10 Creatinine 1.1 H Creat Clearance w eGFR 51.57 Random Glucose 160 H Calcium 8.0 L Total Bilirubin 3.3 H D AST 77 H ALT 22 Alkaline Phosphatase 215 H Total Protein 7.9 Albumin 3.2 L Urine Color Urine Appearance Urine pH Ur Specific [place] Urine Protein Urine Glucose (UA) Urine Ketones Urine Blood Urine Nitrite Urine Bilirubin Urine Urobilinogen Ur Leukocyte Esterase Urine WBC (Auto) Urine RBC (Auto) Ur Epithelial Cells Urine Bacteria Hyaline Casts Urine Mucus Alcohol, Quantitative 12/13/17 04:26 RBC 3.20 L MCV 98.9 H MCHC 34.1 RDW 18.9 H MPV 8.9 D Neutrophils % 59.2 Lymphocytes % 33.2 D Monocytes % 6.0 Eosinophils % 1.0 Basophils % 0.6 Medical Decision Making - Medical Decision Making 12/13/17 08:[address] Black. Patient is 57F with a PMH of alcoholic cirrhosis , hypothyroid disease, thrombocytopenia, anemia, and acid reflux here today complaining of a fall. Labs reviewed: Laboratory Tests 12/13/17 12/13/17 12/13/17 04:26 04:26 04:26 WBC 7.9 D Hgb 10.8 D Plt Count 56 L INR 1.41 H BUN 10 Creatinine 1.1 H Total Bilirubin 3.3 H D AST 77 H ALT 22 Alcohol, Quantitative 12/13/17 04:26 WBC Hgb Plt Count INR BUN Creatinine Total Bilirubin AST ALT Alcohol, Quantitative 368.60 H* CBC shows thrombocytopenia, at baseline. INR elevated. Liver enzymes elevated in alcoholic pattern and tbili is 3.3, at baseline. Alcohol level is 368. CT scans reviewed, all negative for acute pathology. Patient re-examined. Currently not sober. 12/13/17 12:39 CT chest shows pulmonary contusion, L1 compression fracture. Admitted to [facility] via Dr Jeong. *DC/Admit/Observation/Transfer Diagnosis at time of Disposition: Hematoma - Discharge Dispostion Condition at time of disposition: Stable Decision to Admit order: Yes - Referrals Referrals: Wilmar Jeong MD [Primary Care Provider] - - Patient Instructions - Post Discharge Activity
[2017-12-13] MEDS ORDERED: chlordiazePOXIDE HCL 25 MG CAPSULE PO ONE ×2 (09:31→12:42)
[2017-12-13] MEDS ORDERED: chlordiazePOXIDE HCL 25 MG CAPSULE ONE ×2 (09:51→13:09)
[2017-12-13] MEDS ORDERED: SODIUM CHLORIDE 0.45% 1,000 ML IV SCH (15:30)
--- NOTE | 2017-12-13 16:05 | CONSULT ---
Consult Detox [facility] Reason for Current Admission/Consult: substance use Referred by:: jarad Burgess MD - History History of Present Illness: Vital Signs - 24 hr 12/13/17 12/13/17 12/13/17 03:52 08:00 09:47 Temperature 97.4 F L 98.5 F Pulse Rate 102 H Pulse Rate [ 82 Apical] Respiratory 16 16 Rate Blood Pressure 154/81 Blood Pressure 140/80 [Right Arm] O2 Sat by Pulse 97 99 96 Oximetry (%) 12/13/17 13:41 Temperature 98.2 F Pulse Rate Pulse Rate [ 105 H Apical] Respiratory 18 Rate Blood Pressure Blood Pressure 114/70 [Right Arm] O2 Sat by Pulse 99 Oximetry (%) Laboratory Tests 12/13/17 12/13/17 12/13/17 04:26 04:26 04:26 WBC 7.9 D RBC 3.20 L Hgb 10.8 D Hct 31.7 L MCV 98.9 H MCH 33.7 MCHC 34.1 RDW 18.9 H Plt Count 56 L MPV 8.9 D Neutrophils % 59.2 Lymphocytes % 33.2 D Monocytes % 6.0 Eosinophils % 1.0 Basophils % 0.6 PT with INR 15.90 H INR 1.41 H Sodium 140 Potassium 3.4 L Chloride 104 Carbon Dioxide 23 Anion Gap 13 BUN 10 Creatinine 1.1 H Creat Clearance w eGFR 51.57 Random Glucose 160 H Calcium 8.0 L Total Bilirubin 3.3 H D AST 77 H ALT 22 Alkaline Phosphatase 215 H Total Protein 7.9 Albumin 3.2 L Urine Color Urine Appearance Urine pH Ur Specific [place] Urine Protein Urine Glucose (UA) Urine Ketones Urine Blood Urine Nitrite Urine Bilirubin Urine Urobilinogen Ur Leukocyte Esterase Urine WBC (Auto) Urine RBC (Auto) Ur Epithelial Cells Urine Bacteria Hyaline Casts Urine Mucus Alcohol, Quantitative 12/13/17 12/13/17 04:26 05:48 WBC RBC Hgb Hct MCV MCH MCHC RDW Plt Count MPV Neutrophils % Lymphocytes % Monocytes % Eosinophils % Basophils % PT with INR INR Sodium Potassium Chloride Carbon Dioxide Anion Gap BUN Creatinine Creat Clearance w eGFR Random Glucose Calcium Total Bilirubin AST ALT Alkaline Phosphatase Total Protein Albumin Urine Color Yellow Urine Appearance Slcloudy Urine pH 6.0 Ur Specific [place] 1.006 Urine Protein Negative Urine Glucose (UA) Negative Urine Ketones Trace H Urine Blood Negative Urine Nitrite Positive Urine Bilirubin Negative Urine Urobilinogen 2.0 H Ur Leukocyte Esterase Negative Urine WBC (Auto) 1 Urine RBC (Auto) <1 Ur Epithelial Cells Rare Urine Bacteria Many Hyaline Casts 1 Urine Mucus Rare Alcohol, Quantitative 368.60 H* - Alcohol/Substance Use Hx Alcohol Use: No - Past Medical History Gastrointestinal: Yes: GERD, Pancreatitis (recurrent) Hepatobiliary: Yes: Cirrhosis (possible) ...LMP: 08/01/12 Psych: Yes: Addictions Endocrine: Yes: Hypothyroidism - Past Surgical History Past Surgical History: Yes: Assessment Plan - Diagnosis (1) Acute alcohol intoxication Status: Acute (2) Drug-induced mood disorder Status: Acute (3) Hypokalemia Status: Acute (4) Hypomagnesemia Status: Acute (5) GERD (gastroesophageal reflux disease) Status: Chronic Qualifiers: (6) Hypothyroid Status: Chronic Qualifiers: - Plan Plan: chart, imagin and labs reviewed. 57 yo f with multiple medicqal comobidities known to me from prior admission readmitted with intoxication, hypokalemia and anemic, started on libirum deto x, fluids and vitamins which she appears to be tolerating well. Would refer for inpatient rehab after detox is completed and patient is medically stable.. outpatient treatment after last admission was not effective and patient needs a higher level of care if she is able to participate in treatment . - Medication Detox Regimen/Protocol: [place]
[2017-12-13] MEDS: chlordiazePOXIDE HCL 25 MG CAPSULE PO SCH ×2 (17:35→22:29)
--- NOTE | 2017-12-13 18:37 | HP ---
Admitting History and Physical - Admission Chief Complaint: falls History of Present Illness: 57 yo female, recent hospitalization for anemia/ GI bleed, thrombocytopenia due to alcohol cirrhosis, discharged recently after about a 3 week hospitalization. Did begin drinking alcohol again, taking about a pint of ?Vodka daily, last drink this morning. Had been discharged last to outpatient alcohol rehab [facility] , but did not follow-up. Patient notes that she has had several falls, had a chin laceration, which prompted the ED visit, as would not stop bleeding. Did fall backwards hurting her right mid-back, also forward, striking her left breast and shoulder. Due to large right back hematoma she cannot lift her right arm comfortably. Received a few doses of librium, having tremor, but not asterixis. Denies pain with breathing. Had CT head, neck, chest, noted to have soft tissue densities (c/w hematomas), no hemothorax noted. History Source: Patient, Medical Record Limitations to Obtaining History: Poor Historian - Past Medical History Gastrointestinal: Yes: GERD, Pancreatitis (recurrent) Hepatobiliary: Yes: Cirrhosis (possible) ...LMP: 08/01/12 Heme/Onc: Yes: Thrombocytopenia Psych: Yes: Addictions Endocrine: Yes: Hypothyroidism - Past Surgical History Past Surgical History: Yes: Additional Past Surgical History: left ankle ORIF due to prior fall/ fracture - Smoking History Smoking history: Never smoked Have you smoked in the past 12 months: No Aproximately how many cigarettes per day: 0 - Alcohol/Substance Use Hx Alcohol Use: Yes Number of Drinks Daily: 2 (pints) History of Substance Use: reports: Cocaine (4 weeks ago) - Social History Usual Living Arrangement: Yes: With Significant Other ADL: Independent 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 History of Recent Travel: No Home Medications - Allergies Allergies/Adverse Reactions: Allergies Allergy/AdvReac Type Severity Reaction Status Date / Time lamotrigine [From Lamictal] Allergy Verified 11/11/17 20:04 - Home Medications Home Medications: Ambulatory Orders Folic Acid 1 mg PO DAILY #30 tablet 11/27/17 Lactulose (Oral Use) [Cephulac -] 20 gm PO DAILY #30 udc 11/27/17 Levothyroxine [Synthroid -] 100 mcg PO DAILY@0700 #30 tablet 11/27/17 Magnesium Oxide [Mag-Ox -] 400 mg PO BID #60 tablet 05/03/18 Pantoprazole Sodium [Protonix -] 40 mg PO BID #60 tablet.ec 11/27/17 Temazepam [Restoril -] 15 mg PO HS #30 capsule MDD 30 11/27/17 Thiamine HCl [Vitamin B1 -] 100 mg PO HS #30 tablet 11/27/17 hydrOXYzine HCL [Atarax -] 25 mg PO Q8H PRN #14 tablet 11/27/17 Levothyroxine [Synthroid -] 6.25 mcg PO DAILY 12/13/17 Omeprazole Magnesium [Prilosec] 10 mg PO DAILY 12/13/17 Family Disease History - Family Disease History Family Disease History: Diabetes: Father (etoh), Heart Disease: Mother (anxiety, triple bypass, aortic repair), Other: Father Review of Systems - Review of Systems Constitutional: reports: Weakness Eyes: reports: No Symptoms HENT: denies: Difficult Swallowing, Epistaxis Neck: reports: Pain on Movement Cardiovascular: reports: Chest Pain (at injured sites) Respiratory: denies: Cough, SOB Gastrointestinal: reports: Vomiting (earlier today). denies: Diarrhea, Melena Genitourinary: denies: Burning, Discharge, Dysuria Musculoskeletal: reports: Back Pain Hematology/Lymphatic: reports: Easily Bruised Physical Examination Vital Signs: Vital Signs Temperature 98.3 F 12/13/17 17:38 Pulse Rate 101 H 12/13/17 17:38 Respiratory Rate 21 12/13/17 17:38 Blood Pressure 150/80 12/13/17 17:38 O2 Sat by Pulse Oximetry (%) 99 12/13/17 16:35 Constitutional: Yes: Poor Hygeine Eyes: Yes: Conjunctiva Clear, EOM Intact, PERRL, Sclera Icterus HENT: Yes: Other (left orbital ecchymosis (appears fading), chin laceration with surrounding ecchymosis) Neck: Yes: Supple, Trachea Midline Cardiovascular: Yes: Tachycardia, S1, S2. No: Murmur Respiratory: Yes: Regular, CTA Bilaterally. No: Rales, Rhonchi, Wheezes Gastrointestinal: Yes: Normal Bowel Sounds, Soft. No: Distention, Tenderness Musculoskeletal: Yes: Other (large right midback hematoma, left breast ecchymosis, left anterior shoulder ecchymosis) Edema: No Neurological: Yes: Alert, Oriented, Tremors Labs: CBC, BMP 12/13/17 04:26 12/13/17 04:26 Imaging - Results Cat Scan: Pending (CT chest/abd/pelv-cirrhotic liver, no internal bleeding noted , cholelithiasis, old compression fracture L, soft tissue hematomas noted CT face, CT neck -no fractures noted (reversal of lordosisi c/w muscle spasm) CT head -no intracranial bleeding, no infarcts) Problem List - Problems (1) Hematoma Assessment/Plan: -with pulmonary contusion noted will observe with pulmonary following Code(s): T14.8XXA - OTHER INJURY OF UNSPECIFIED BODY REGION, INITIAL ENCOUNTER (2) Acute alcohol intoxication Assessment/Plan: -started on librium -Behavioral medicine following (following hospitalization will need inpatient alcohol detox/ rehab for patient safety) Code(s): F10.929 - ALCOHOL USE, UNSPECIFIED WITH INTOXICATION, UNSPECIFIED (3) Advanced cirrhosis of liver Assessment/Plan: -on lactulose for hepatic encephalopathy Code(s): K74.60 - UNSPECIFIED CIRRHOSIS OF LIVER (4) Decreased platelet count Assessment/Plan: -stable at 56,000 today Code(s): D69.6 - THROMBOCYTOPENIA, UNSPECIFIED (5) Gait disorder Assessment/Plan: -due to alcohol intox Code(s): R26.9 - UNSPECIFIED ABNORMALITIES OF GAIT AND MOBILITY (6) Hepatic encephalopathy Assessment/Plan: -on lactulose Code(s): K72.90 - HEPATIC FAILURE, UNSPECIFIED WITHOUT COMA (7) Hypothyroid Assessment/Plan: -on synthroid Code(s): E03.9 - HYPOTHYROIDISM, UNSPECIFIED Qualifiers:
[2017-12-13] MEDS: IBUPROFEN 400 MG TABLET (FP) PO PRN (19:44)
[2017-12-13] MEDS: PANTOPRAZOLE 40 MG TABLET (FP) PO SCH (22:29)
[2017-12-13] MEDS: THIAMINE HCL 100 MG TABLET (FP) PO SCH (22:29)
[2017-12-13] MEDS: MAGNESIUM OXIDE 400 MG TABLET (FP) PO SCH (22:29)
[2017-12-14] MEDS: chlordiazePOXIDE HCL 25 MG CAPSULE PO SCH ×4 (04:25→22:00)
[2017-12-14] MEDS: LEVOTHYROXINE NA 100 MCG TABLET (FP) PO SCH (06:03)
[2017-12-14 07:28] LABS: BASO % 0.4 % (0-2.0); EOS % 1.2 % (0-4.5); LYMPH % 37.5 % (8-40); MCH 34.2 pg (25.7-33.7); MCHC 34.6 g/dl (32.0-36.0); MEAN CELL VOLUME 98.8 fl (80-96); MEAN PLT VOLUME 8.7 fl (7.5-11.1); MONO % 7.5 % (3.8-10.2); NEUT % 53.4 % (42.8-82.8); RBC 2.33 M/mm3 (3.60-5.2); RDW 19.1 % (11.6-15.6); WHITE BLOOD COUNT 4.8 K/mm3 (4.0-10.0)
[2017-12-14 07:50] LABS: CHLORIDE 104 mmol/L (98-107); POTASSIUM 3.3 mmol/L (3.5-5.1); SODIUM 138 mmol/L (136-145)
[2017-12-14 07:57] LABS: ALBUMIN 2.7 g/dl (3.4-5.0); ALK PHOS 178 U/L (45-117); ANION GAP 9 (8-16); BILIRUBIN,TOTAL 4.7 mg/dL (0.2-1.0); BLOOD UREA NITROGEN 12 mg/dL (7-18); CALCIUM 7.8 mg/dL (8.5-10.1); CO2 25 mmol/L (21-32); CREATININE 0.9 mg/dL (0.55-1.02); GLUCOSE,RANDOM 105 mg/dL (74-106); SGOT/AST 61 U/L (15-37); SGPT/ALT 18 U/L (12-78); TOT PROT 6.6 g/dl (6.4-8.2)
[2017-12-14 08:40] LABS: PLATELET COUNT 21 K/MM3 (134-434)
[2017-12-14] MEDS ORDERED: PT OWN MED DRAWER 7, Y5N ONE ×2 (09:21→15:41)
--- NOTE | 2017-12-14 10:07 | CONSULT ---
Consult Consult Specialty:: Hematology/Oncology Referred by:: Reason for Consultation:: Thrombocytopenia - History of Present Illness Chief Complaint: chin laceration History of Present Illness: 57 y/o female with PMhx of anemia, GI bleeding, alcoholic cirrhosis with continued heavy drinking. Patient was admitted after several falls and a chin laceration which was bleeding. Hematology consulted as she has had a drop in her platelets today to 21k from 56k at admission. On speaking with patient today , she says her chin still hurts. She is delirious and somnolent- frequently getting confused in the conversation. - History Source History Provided By: Patient Limitations to Obtaining History: Other - Past Medical History Gastrointestinal: Yes: GERD, Pancreatitis (recurrent) Hepatobiliary: Yes: Cirrhosis (possible) ...LMP: 08/01/12 Psych: Yes: Addictions Endocrine: Yes: Hypothyroidism - Past Surgical History Past Surgical History: Yes: - Alcohol/Substance Use Hx Alcohol Use: Yes Number of Drinks Daily: 2 (pints) History of Substance Use: reports: Cocaine (4 weeks ago) - Smoking History Smoking history: Never smoked Have you smoked in the past 12 months: No Aproximately how many cigarettes per day: 0 - Social History ADL: Independent 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 History of Recent Travel: No Home Medications - Allergies Allergies/Adverse Reactions: Allergies Allergy/AdvReac Type Severity Reaction Status Date / Time lamotrigine [From Lamictal] Allergy Verified 11/11/17 20:04 - Home Medications Home Medications: Ambulatory Orders Folic Acid 1 mg PO DAILY #30 tablet 11/27/17 Lactulose (Oral Use) [Cephulac -] 20 gm PO DAILY #30 udc 11/27/17 Levothyroxine [Synthroid -] 100 mcg PO DAILY@0700 #30 tablet 11/27/17 Magnesium Oxide [Mag-Ox -] 400 mg PO BID #60 tablet 11/27/17 Pantoprazole Sodium [Protonix -] 40 mg PO BID #60 tablet.ec 11/27/17 Temazepam [Restoril -] 15 mg PO HS #30 capsule MDD 30 11/27/17 Thiamine HCl [Vitamin B1 -] 100 mg PO HS #30 tablet 11/27/17 hydrOXYzine HCL [Atarax -] 25 mg PO Q8H PRN #14 tablet 11/27/17 Levothyroxine [Synthroid -] 6.25 mcg PO DAILY 12/13/17 Omeprazole Magnesium [Prilosec] 10 mg PO DAILY 12/13/17 Family Disease History - Family Disease History Family Disease History: Diabetes: Father (etoh), Heart Disease: Mother (anxiety, triple bypass, aortic repair), Other: Father Review of Systems Unable to obtain ROS, reason: somnolent, confused Physical Exam Vital Signs: Vital Signs Temperature 98.2 F 12/14/17 06:00 Pulse Rate 77 12/14/17 06:00 Respiratory Rate 20 12/14/17 06:00 Blood Pressure 141/70 12/14/17 06:00 O2 Sat by Pulse Oximetry (%) 99 12/13/17 21:00 Constitutional: Yes: Well Nourished Eyes: Yes: WNL HENT: Yes: Other (has a large bruise and stiched laceration on her chin) Neck: Yes: WNL Cardiovascular: Yes: WNL Respiratory: Yes: WNL Gastrointestinal: Yes: WNL ...Rectal Exam: Yes: Deferred Renal/: Yes: WNL Musculoskeletal: Yes: WNL Extremities: Yes: WNL Integumentary: Yes: Other (multiple skin hematomas) Labs: CBC, BMP 12/14/17 06:00 12/14/17 06:00 Assessment/Plan 57 y/o female with PMHx of anemia, GI bleeding, alcoholic cirrhosis, admitted with multiple hematomas and pancytopenia On review of peripheral smear : RBC's show mild anisocytosis and poikilocytosis , roleux formation, there are 1-2 platelets noted per hpf and no platelet clumps noted Impression -likely acute on chronic pancytopenia due to acute alcohol intoxication superimposed on alcoholic cirrhosis. This is a self limited condition and should improve on its own -patient probably also has chronic malnutrition hence would check serum B12, MMA , serum folate, ferritin, serum Iron, TIBC, transferrin, copper levels -there has been a drop in all 3 cell lines since admission hence recommend repeating CBC in the pm - transfusion goals are Hgb < 7 g/dl and platelets < 10K -will continue to follow closely Thank you for the consultation
[2017-12-14] MEDS: FOLIC ACID 1 MG TABLET (FP) PO SCH (10:45)
[2017-12-14] MEDS: LACTULOSE 20 GM/30 ML UDC (FOR ORAL USE ONLY) PO SCH (10:45)
[2017-12-14] MEDS: PANTOPRAZOLE 40 MG TABLET (FP) PO SCH ×2 (10:46→22:00)
[2017-12-14] MEDS: MAGNESIUM OXIDE 400 MG TABLET (FP) PO SCH ×2 (10:46→22:00)
--- NOTE | 2017-12-14 12:05 | PN ---
Progress Note, Physician History of Present Illness: Patient less tremulous this morning, but complains of not sleeping last night, asks for sleep medication - Current Medication List Current Medications: Active Medications Chlordiazepoxide HCl (Librium -) 50 mg PO [id number] [facility] Last Admin: 12/14/17 10:45 Dose: 50 mg Folic Acid (Folic Acid -) 1 mg PO DAILY [facility] Last Admin: 12/14/17 10:45 Dose: 1 mg Sodium Chloride (1/2 Normal Saline) 1,000 mls @ 75 mls/hr IV ASDIR [facility] Stop: 12/14/17 15:29 Last Admin: 12/13/17 15:30 Dose: 75 mls/hr Ibuprofen (Motrin -) 400 mg PO Q6H PRN PRN Reason: FEVER Last Admin: 12/13/17 19:44 Dose: 400 mg Lactulose (Cephulac (Oral Use)) 20 gm PO DAILY [facility] Last Admin: 12/14/17 10:45 Dose: 20 gm Levothyroxine Sodium (Synthroid -) 100 mcg PO DAILY@0700 [facility] Last Admin: 12/14/17 06:03 Dose: 100 mcg Magnesium Oxide (Mag-Ox -) 400 mg PO BID [facility] Last Admin: 12/14/17 10:46 Dose: 400 mg Pantoprazole Sodium (Protonix -) 40 mg PO BID [facility] Last Admin: 12/14/17 10:46 Dose: 40 mg Multivit/Folic Acid/Iron ( Vitamins (Sjr) -) 1 tab PO DAILY [facility] Temazepam (Restoril -) 30 mg PO HS [facility] Thiamine HCl (Vitamin B1 -) 100 mg PO HS [facility] Last Admin: 12/13/17 22:29 Dose: 100 mg - Objective Vital Signs: Vital Signs Temperature 98.2 F 12/14/17 06:00 Pulse Rate 77 12/14/17 06:00 Respiratory Rate 20 12/14/17 06:00 Blood Pressure 141/70 12/14/17 06:00 O2 Sat by Pulse Oximetry (%) 99 12/13/17 21:00 Constitutional: Yes: No Distress, Calm Neck: Yes: Supple, Trachea Midline Cardiovascular: Yes: Regular Rate and Rhythm, S1, S2. No: Murmur Respiratory: Yes: Regular, CTA Bilaterally. No: Rales, Rhonchi, Wheezes Musculoskeletal: Yes: Other (large right mid-back hematoma, multiple lacerations on various parts of her body) Edema: No Labs: CBC, BMP 12/14/17 06:00 12/14/17 06:00 INR, PTT INR 1.41 (0.82-1.09) H 12/13/17 04:26 Problem List - Problems (1) Hematoma Code(s): T14.8XXA - OTHER INJURY OF UNSPECIFIED BODY REGION, INITIAL ENCOUNTER (2) Acute alcohol intoxication Code(s): F10.929 - ALCOHOL USE, UNSPECIFIED WITH INTOXICATION, UNSPECIFIED (3) Advanced cirrhosis of liver Code(s): K74.60 - UNSPECIFIED CIRRHOSIS OF LIVER (4) Decreased platelet count Code(s): D69.6 - THROMBOCYTOPENIA, UNSPECIFIED (5) Gait disorder Code(s): R26.9 - UNSPECIFIED ABNORMALITIES OF GAIT AND MOBILITY (6) Hepatic encephalopathy Code(s): K72.90 - HEPATIC FAILURE, UNSPECIFIED WITHOUT COMA (7) Hypothyroid Code(s): E03.9 - HYPOTHYROIDISM, UNSPECIFIED Qualifiers: Assessment/Plan Current Active Problems Hematoma (Acute), s/p falls Pulmonary contusion Pancytopenia Cirrhosis of the liver Alcohol abuse hypothyroid -on monitor for lung decompensation (pulmonary contusion, at risk on bleeding) -on librium taper for alcohol detox -to get repeat CBC this PM to see if requires further supportive transfusions ( blood or platelets) -ultimately will need inpatient alcohol abuse rehab following hospitalization
[2017-12-14 13:43] LABS: BASO % 0.3 % (0-2.0); EOS % 2.1 % (0-4.5); HEMATOCRIT 23.7 % (32.4-45.2); MCH 33.4 pg (25.7-33.7); MCHC 33.7 g/dl (32.0-36.0); MEAN PLT VOLUME 8.1 fl (7.5-11.1); MONO % 8.2 % (3.8-10.2); NEUT % 56.4 % (42.8-82.8); RDW 18.4 % (11.6-15.6); WHITE BLOOD COUNT 3.9 K/mm3 (4.0-10.0)
[2017-12-14 13:55] LABS: PLATELET COUNT 20 K/MM3 (134-434)
--- NOTE | 2017-12-14 14:53 | CON.PULM ---
Consult Consult Specialty:: PULMONARY Referred by:: SUSY Reason for Consultation:: FALL WITH ?LUNG CONTUSION - History of Present Illness Chief Complaint: NO SOB/NO CP History of Present Illness: The patient is a 57F with a PMH of alcoholic cirrhosis, hypothyroid disease, thrombocytopenia, anemia, and acid reflux who presents to the ER with complaints after a fall. The patient states that she has had multiple falls over the past 2 days. 2 days ago the patient fell backwards hitting her back on her boyfriend's nightstand and sustained an abrasion on her back with bruising. Today, she fell and hit her head earlier yesterday, then hit her chin prior to presentation and it was bleeding so she decided to come to the ED. The patient has no acute complaints besides the bruising and is concerned she needs stitches. - History Source History Provided By: Patient, Medical Record Limitations to Obtaining History: Language Barrier - Past Medical History HOME HEALTH OCCUPATIONAL THERAPIST: No: Alzheimer's Cardio/Vascular: No: AFIB Pulmonary: No: Asthma, COPD, Pneumonia Gastrointestinal: Yes: GERD, Pancreatitis (recurrent) Hepatobiliary: Yes: Cirrhosis (possible) ...LMP: 08/01/12 Psych: Yes: Addictions Endocrine: Yes: Hypothyroidism - Past Surgical History Past Surgical History: Yes: - Alcohol/Substance Use Hx Alcohol Use: Yes Number of Drinks Daily: 2 (pints) History of Substance Use: reports: Cocaine (4 weeks ago) - Smoking History Smoking history: Never smoked Have you smoked in the past 12 months: No Aproximately how many cigarettes per day: 0 - Social History ADL: Independent 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 History of Recent Travel: No Home Medications - Allergies Allergies/Adverse Reactions: Allergies Allergy/AdvReac Type Severity Reaction Status Date / Time lamotrigine [From Lamictal] Allergy Verified 11/11/17 20:04 - Home Medications Home Medications: Ambulatory Orders Folic Acid 1 mg PO DAILY #30 tablet 11/27/17 Lactulose (Oral Use) [Cephulac -] 20 gm PO DAILY #30 udc 11/27/17 Levothyroxine [Synthroid -] 100 mcg PO DAILY@0700 #30 tablet 11/27/17 Magnesium Oxide [Mag-Ox -] 400 mg PO BID #60 tablet 11/27/17 Pantoprazole Sodium [Protonix -] 40 mg PO BID #60 tablet.ec 11/27/17 Temazepam [Restoril -] 15 mg PO HS #30 capsule MDD 30 11/27/17 Thiamine HCl [Vitamin B1 -] 100 mg PO HS #30 tablet 11/27/17 hydrOXYzine HCL [Atarax -] 25 mg PO Q8H PRN #14 tablet 11/27/17 Levothyroxine [Synthroid -] 6.25 mcg PO DAILY 12/13/17 Omeprazole Magnesium [Prilosec] 10 mg PO DAILY 12/13/17 Family Disease History - Family Disease History Family Disease History: Diabetes: Father (etoh), Heart Disease: Mother (anxiety, triple bypass, aortic repair), Other: Father Review of Systems - Review of Systems Constitutional: denies: Fever Eyes: denies: Blurred Vision HENT: denies: Difficult Swallowing Neck: denies: Decreased ROM Cardiovascular: reports: Chest Pain Respiratory: denies: Cough, Exercise Intolerance, Hemoptysis, Orthopnea, SOB, SOB on Exertion, Wheezing Gastrointestinal: reports: No Symptoms Genitourinary: reports: No Symptoms Physical Exam Vital Sings: Vital Signs Temperature 98.3 F 12/14/17 10:00 Pulse Rate 91 H 12/14/17 10:00 Respiratory Rate 20 12/14/17 10:00 Blood Pressure 144/81 12/14/17 10:00 O2 Sat by Pulse Oximetry (%) 93 L 12/14/17 09:00 Constitutional: Yes: Calm Eyes: Yes: EOM Intact HENT: Yes: Normocephalic Neck: Yes: Trachea Midline Cardiovascular: Yes: Regular Rate and Rhythm Respiratory: Yes: CTA Bilaterally Gastrointestinal: Yes: Abdomen, Obese Edema: LLE: Trace, RLE: Trace Labs: CBC, BMP 12/14/17 13:35 12/14/17 06:00 REST REVIEWED Imaging - Results Chest X-ray: Report Reviewed, Image Reviewed Cat Scan: Report Reviewed, Image Reviewed Problem List - Problems (1) Acute alcohol intoxication Code(s): F10.929 - ALCOHOL USE, UNSPECIFIED WITH INTOXICATION, UNSPECIFIED (2) Advanced cirrhosis of liver Code(s): K74.60 - UNSPECIFIED CIRRHOSIS OF LIVER (3) Cocaine abuse Code(s): F14.10 - COCAINE ABUSE, UNCOMPLICATED (4) DVT prophylaxis Code(s): [id number] - Assessment/Plan NO RADIOLOGICAL EVIDENCE TO SUGGEST LUNG CONTUSION FROM FALL ALCOHOLIC LIVER DISEASE NEVER SMOKER Kobe VAZQUEZ MD
[2017-12-14] MEDS: IBUPROFEN 400 MG TABLET (FP) PO PRN ×2 (15:44→22:00)
[2017-12-14] MEDS: PRENATAL VITAMINS W/ FOLIC ACID TABLET (FP) PO SCH (17:18)
[2017-12-14] MEDS: THIAMINE HCL 100 MG TABLET (FP) PO SCH (22:00)
[2017-12-14] MEDS ORDERED: TEMAZEPAM 15 MG CAPSULE PO SCH (22:00)
[2017-12-15] MEDS: chlordiazePOXIDE HCL 25 MG CAPSULE PO SCH ×4 (05:11→22:30)
[2017-12-15] MEDS: LEVOTHYROXINE NA 100 MCG TABLET (FP) PO SCH (06:07)
[2017-12-15 08:09] LABS: BASO % 0.3 % (0-2.0); EOS % 2.9 % (0-4.5); HEMOGLOBIN 8.1 GM/dL (10.7-15.3); LYMPH % 29.8 % (8-40); MCH 33.7 pg (25.7-33.7); MCHC 33.8 g/dl (32.0-36.0); MEAN CELL VOLUME 99.6 fl (80-96); MEAN PLT VOLUME 8.5 fl (7.5-11.1); MONO % 5.8 % (3.8-10.2); NEUT % 61.2 % (42.8-82.8); RBC 2.41 M/mm3 (3.60-5.2); RDW 18.7 % (11.6-15.6); WHITE BLOOD COUNT 4.1 K/mm3 (4.0-10.0)
[2017-12-15 08:28] LABS: PLATELET COUNT 25 K/MM3 (134-434)
[2017-12-15 09:05] LABS: ALBUMIN 2.7 g/dl (3.4-5.0); ALK PHOS 186 U/L (45-117); BILIRUBIN,TOTAL 4.3 mg/dL (0.2-1.0); BLOOD UREA NITROGEN 13 mg/dL (7-18); CALCIUM 8.4 mg/dL (8.5-10.1); CO2 26 mmol/L (21-32); CREATININE 1.1 mg/dL (0.55-1.02); GLUCOSE,RANDOM 136 mg/dL (74-106); SGOT/AST 62 U/L (15-37); SGPT/ALT 18 U/L (12-78); TOT PROT 6.6 g/dl (6.4-8.2)
[2017-12-15 09:10] LABS: ANION GAP 8 (8-16); CHLORIDE 106 mmol/L (98-107); POTASSIUM 3.3 mmol/L (3.5-5.1); SODIUM 140 mmol/L (136-145)
[2017-12-15] MEDS: LACTULOSE 20 GM/30 ML UDC (FOR ORAL USE ONLY) PO SCH (10:44)
[2017-12-15] MEDS: FOLIC ACID 1 MG TABLET (FP) PO SCH (10:44)
[2017-12-15] MEDS: PANTOPRAZOLE 40 MG TABLET (FP) PO SCH ×2 (10:45→22:30)
[2017-12-15] MEDS: MAGNESIUM OXIDE 400 MG TABLET (FP) PO SCH ×2 (10:45→22:30)
[2017-12-15] MEDS: IBUPROFEN 400 MG TABLET (FP) PO PRN ×2 (10:46→22:32)
[2017-12-15] MEDS ORDERED: PT OWN MED DRAWER 7, Y5N ONE (10:50)
[2017-12-15] MEDS: PRENATAL VITAMINS W/ FOLIC ACID TABLET (FP) PO SCH (10:51)
[2017-12-15] MEDS ORDERED: chlordiazePOXIDE HCL 25 MG CAPSULE PO PRN (12:16)
--- NOTE | 2017-12-15 12:18 | PN ---
Progress Note, Physician Chief Complaint: Ms Andino complains of pain on her right side where she fell. No cp, sob, n/v. Very emotional today. - Current Medication List Current Medications: Active Medications Chlordiazepoxide HCl (Librium -) 50 mg PO [id number] [facility] Stop: 12/16/17 11:01 Chlordiazepoxide HCl (Librium -) 25 mg PO [id number] [facility] Stop: 12/17/17 11:01 Chlordiazepoxide HCl (Librium -) 15 mg PO [id number] [facility] Stop: 12/18/17 11:01 Chlordiazepoxide HCl (Librium -) 25 mg PO Q4H PRN PRN Reason: WITHDRAWAL(CONT SUBST) Stop: 12/18/17 12:15 Folic Acid (Folic Acid -) 1 mg PO DAILY [facility] Last Admin: 12/15/17 10:44 Dose: 1 mg Ibuprofen (Motrin -) 400 mg PO Q6H PRN PRN Reason: FEVER Last Admin: 12/15/17 10:46 Dose: 400 mg Lactulose (Cephulac (Oral Use)) 20 gm PO DAILY [facility] Last Admin: 12/15/17 10:44 Dose: 20 gm Levothyroxine Sodium (Synthroid -) 100 mcg PO DAILY@0700 [facility] Last Admin: 12/15/17 06:07 Dose: 100 mcg Magnesium Oxide (Mag-Ox -) 400 mg PO BID [facility] Last Admin: 12/15/17 10:45 Dose: 400 mg Pantoprazole Sodium (Protonix -) 40 mg PO BID [facility] Last Admin: 12/15/17 10:45 Dose: 40 mg Multivit/Folic Acid/Iron ( Vitamins (Sjr) -) 1 tab PO DAILY [facility] Last Admin: 12/15/17 10:51 Dose: 1 tab Temazepam (Restoril -) 30 mg PO HS [facility] Last Admin: 12/14/17 22:00 Dose: 30 mg Thiamine HCl (Vitamin B1 -) 100 mg PO HS [facility] Last Admin: 12/14/17 22:00 Dose: 100 mg - Objective Vital Signs: Vital Signs Temperature 36.2 C L 12/15/17 10:00 Pulse Rate 109 H 12/15/17 10:00 Respiratory Rate 20 12/15/17 10:00 Blood Pressure 142/98 12/15/17 10:00 O2 Sat by Pulse Oximetry (%) 94 L 12/14/17 21:00 Constitutional: Yes: Well Nourished, No Distress, Calm Cardiovascular: Yes: Regular Rate and Rhythm. No: Gallop, Murmur Respiratory: Yes: Regular, CTA Bilaterally. No: Rales, Rhonchi, Wheezes Gastrointestinal: Yes: Normal Bowel Sounds, Soft Extremities: Yes: WNL Edema: No Labs: CBC, BMP 12/15/17 07:36 12/15/17 07:36 INR, PTT INR 1.41 (0.82-1.09) H 12/13/17 04:26 Problem List - Problems (1) Hematoma Assessment/Plan: -stable -monitor Code(s): T14.8XXA - OTHER INJURY OF UNSPECIFIED BODY REGION, INITIAL ENCOUNTER (2) Acute alcohol intoxication Assessment/Plan: -resolved -begin to taper librium Code(s): F10.929 - ALCOHOL USE, UNSPECIFIED WITH INTOXICATION, UNSPECIFIED Qualifiers: Complication of substance-induced condition: uncomplicated Qualified Code(s ): F10.929 - Alcohol use, unspecified with intoxication, unspecified (3) Alcoholic cirrhosis of liver Assessment/Plan: -chronic -continue to encourage patient to quit drinking Code(s): K70.30 - ALCOHOLIC CIRRHOSIS OF LIVER WITHOUT ASCITES Qualifiers: Ascites presence: with ascites Qualified Code(s): K70.31 - Alcoholic cirrhosis of liver with ascites (4) Hepatic encephalopathy Assessment/Plan: -stable -continue lactulose Code(s): K72.90 - HEPATIC FAILURE, UNSPECIFIED WITHOUT COMA (5) Thrombocytopenia concurrent with and due to alcoholism Assessment/Plan: -appreciate hematology assistance -secondary to alcoholism -improving Code(s): D69.59 - OTHER SECONDARY THROMBOCYTOPENIA; F10.20 - ALCOHOL DEPENDENCE , UNCOMPLICATED (6) Alcohol dependence with uncomplicated withdrawal Assessment/Plan: -begin librium taper -patient will need inpatient alcohol rehab as outpatient was unsuccessful Code(s): F10.230 - ALCOHOL DEPENDENCE WITH WITHDRAWAL, UNCOMPLICATED (7) Hypothyroid Assessment/Plan: -continue synthroid Code(s): E03.9 - HYPOTHYROIDISM, UNSPECIFIED Qualifiers:
[2017-12-15] MEDS ORDERED: POTASSIUM CHLORIDE TABS 20 MEQ TABLET.ER (FP) PO ONE (13:30)
[2017-12-15 17:11] VITALS: BMI 26.7
[2017-12-15] MEDS: THIAMINE HCL 100 MG TABLET (FP) PO SCH (22:30)
--- NOTE | 2017-12-15 23:51 | PN ---
Progress Note (short form) - Note Progress Note: Patient seen and examined c/o pain at the site of bruising AFVSS Cor: RSR, No murmurs, No gallops Lungs: Clear to P&A Abd: Soft, Normal bowel sounds, No organomegaly skin --ecchymosis over the back, left shoulder, left breast Abnormal Lab Results 12/15/17 12/15/17 12/15/17 07:36 07:36 07:36 RBC 2.41 L Hgb 8.1 L Hct 24.0 L MCV 99.6 H MCH RDW 18.7 H Plt Count 25 L* D Potassium 3.3 L Chloride Anion Gap Creatinine 1.1 H Random Glucose 136 H Calcium 8.4 L Phosphorus TIBC 238 L Iron Saturation 58 H Transferrin Total Bilirubin 4.3 H AST 62 H Alkaline Phosphatase 186 H Albumin 2.7 L Vitamin B12 967 H Serum Folate 357 H 12/15/17 12/16/17 12/16/17 07:36 06:20 06:20 RBC 2.29 L Hgb 7.9 L Hct 23.1 L MCV 100.7 H MCH 34.7 H RDW 18.8 H Plt Count 24 L* Potassium Chloride 108 H Anion Gap 6 L Creatinine Random Glucose 112 H Calcium 8.3 L Phosphorus 2.2 L TIBC Iron Saturation Transferrin 198 L Total Bilirubin AST Alkaline Phosphatase Albumin Vitamin B12 Serum Folate Active Medications Generic Name Dose Route Start Last Admin Trade Name Freq PRN Reason Stop Dose Admin Chlordiazepoxide HCl 25 mg 12/16/17 05:00 12/16/17 05:22 Librium - PO 12/16/17 23:01 25 mg [id number] [place] Administration Chlordiazepoxide HCl 15 mg 12/17/17 05:00 Librium - PO 12/17/17 23:01 [id number] [place] Chlordiazepoxide HCl 25 mg 12/15/17 12:16 Librium - PO 12/18/17 12:15 Q4H PRN WITHDRAWAL(CONT SUBST) Folic Acid 1 mg 12/14/17 10:00 12/15/17 10:44 Folic Acid - PO 1 mg DAILY [place] Administration Ibuprofen 400 mg 12/13/17 15:19 12/15/17 22:32 Motrin - PO 400 mg Q6H PRN Administration FEVER Lactulose 20 gm 12/14/17 10:00 12/15/17 10:44 Cephulac (Oral Use) PO 20 gm DAILY [place] Administration Levothyroxine Sodium 100 mcg 12/14/17 07:00 12/16/17 06:36 Synthroid - PO 100 mcg DAILY@0700 [place] Administration Magnesium Oxide 400 mg 12/13/17 22:00 12/15/17 22:30 Mag-Ox - PO 400 mg BID [place] Administration Pantoprazole Sodium 40 mg 12/13/17 22:00 12/15/17 22:30 Protonix - PO 40 mg BID [place] Administration Multivit/Folic Acid/Iron 1 tab 12/14/17 10:00 12/15/17 10:51 Vitamins (Sjr) - PO 1 tab DAILY [place] Administration Thiamine HCl 100 mg 12/13/17 22:00 12/15/17 22:30 Vitamin B1 - PO 100 mg HS [place] Administration A/P 57 y/o female with PMHx of anemia, GI bleeding, alcoholic cirrhosis, admitted with multiple hematomas, s/p fall and pancytopenia Head CT - Impression -likely acute on chronic pancytopenia due to acute alcohol intoxication superimposed on alcoholic cirrhosis. - transfusion goals are Hgb < 7 g/dl and platelets < 15,000 . transfuse platelets/FFP if actively bleeding currently hemoglobin stable. Monitor sites of ecchymosis/monitor platelets/coags /hgb
--- NOTE | 2017-12-16 00:37 | EKG ---
Test Reason : Blood Pressure : / mmHG Vent. Rate : 095 BPM Atrial Rate : 095 BPM P-R Int : 108 ms QRS Dur : 082 ms QT Int : 414 ms P-R-T Axes : 072 055 053 degrees QTc Int : 520 ms SINUS RHYTHM WITH SHORT SC PROLONGED QT ABNORMAL ECG WHEN COMPARED WITH ECG OF 12-NOV-2017 19:46, NO SIGNIFICANT CHANGE WAS FOUND Confirmed by CURTIS PARISH MD ([id number]) on 12/16/2017 12:36:45 AM Referred By: Confirmed By:CURTIS PARISH MD
[2017-12-16] MEDS: chlordiazePOXIDE HCL 25 MG CAPSULE PO SCH ×4 (05:22→23:20)
[2017-12-16 06:06] LABS: SERUM IRON SATURATION 58 % (15-55); TOTAL IRON BINDING CAPACITY 238 ug/dL (250-450); UIBC 100 ug/dL (131-425)
[2017-12-16] MEDS: LEVOTHYROXINE NA 100 MCG TABLET (FP) PO SCH (06:36)
[2017-12-16 06:47] LABS: BASO % 0.4 % (0-2.0); EOS % 3.1 % (0-4.5); HEMATOCRIT 23.1 % (32.4-45.2); HEMOGLOBIN 7.9 GM/dL (10.7-15.3); LYMPH % 28.2 % (8-40); MCH 34.7 pg (25.7-33.7); MCHC 34.4 g/dl (32.0-36.0); MEAN CELL VOLUME 100.7 fl (80-96); MEAN PLT VOLUME 9.2 fl (7.5-11.1); MONO % 7.6 % (3.8-10.2); NEUT % 60.7 % (42.8-82.8); RBC 2.29 M/mm3 (3.60-5.2); RDW 18.8 % (11.6-15.6); WHITE BLOOD COUNT 4.9 K/mm3 (4.0-10.0)
[2017-12-16 07:02] LABS: PLATELET COUNT 24 K/MM3 (134-434)
[2017-12-16 07:12] LABS: ANION GAP 6 (8-16); BLOOD UREA NITROGEN 10 mg/dL (7-18); CHLORIDE 108 mmol/L (98-107); CO2 25 mmol/L (21-32); GLUCOSE,RANDOM 112 mg/dL (74-106); POTASSIUM 3.8 mmol/L (3.5-5.1); SODIUM 139 mmol/L (136-145)
[2017-12-16 07:13] LABS: CALCIUM 8.3 mg/dL (8.5-10.1); MAGNESIUM 1.9 mg/dL (1.8-2.4); PHOSPHOROUS 2.2 mg/dL (2.5-4.9)
[2017-12-16 08:07] LABS: TRANSFERRIN 198 mg/dL (200-370)
[2017-12-16] MEDS ORDERED: PT OWN MED DRAWER 7, Y5N ONE (08:29)
[2017-12-16] MEDS: LACTULOSE 20 GM/30 ML UDC (FOR ORAL USE ONLY) PO SCH (09:09)
[2017-12-16] MEDS: PRENATAL VITAMINS W/ FOLIC ACID TABLET (FP) PO SCH (09:10)
[2017-12-16] MEDS: MAGNESIUM OXIDE 400 MG TABLET (FP) PO SCH ×2 (09:10→21:30)
[2017-12-16] MEDS: PANTOPRAZOLE 40 MG TABLET (FP) PO SCH ×2 (09:10→21:29)
[2017-12-16] MEDS: FOLIC ACID 1 MG TABLET (FP) PO SCH (09:10)
--- NOTE | 2017-12-16 11:25 | PN ---
Progress Note, Physician Chief Complaint: Ms Andino says she is still having pain on her right side. Denies cp, sob, n/v. - Current Medication List Current Medications: Active Medications Chlordiazepoxide HCl (Librium -) 25 mg PO [id number] [facility] [place] Stop: 12/16/17 23:01 Last Admin: 12/16/17 05:22 Dose: 25 mg Chlordiazepoxide HCl (Librium -) 15 mg PO [id number] [facility] [place] Stop: 12/17/17 23:01 Chlordiazepoxide HCl (Librium -) 25 mg PO Q4H PRN PRN Reason: WITHDRAWAL(CONT SUBST) Stop: 12/18/17 12:15 Last Admin: 12/16/17 09:18 Dose: 25 mg Folic Acid (Folic Acid -) 1 mg PO DAILY [facility] [place] Last Admin: 12/16/17 09:10 Dose: 1 mg Ibuprofen (Motrin -) 400 mg PO Q6H PRN PRN Reason: FEVER Last Admin: 12/15/17 22:32 Dose: 400 mg Lactulose (Cephulac (Oral Use)) 20 gm PO DAILY [facility] [place] Last Admin: 12/16/17 09:09 Dose: 20 gm Levothyroxine Sodium (Synthroid -) 100 mcg PO DAILY@0700 [facility] [place] Last Admin: 12/16/17 06:36 Dose: 100 mcg Magnesium Oxide (Mag-Ox -) 400 mg PO BID [facility] [place] Last Admin: 12/16/17 09:10 Dose: 400 mg Pantoprazole Sodium (Protonix -) 40 mg PO BID [facility] [place] Last Admin: 12/16/17 09:10 Dose: 40 mg Potassium Phos/Sodium Phos (Phos-Nak Packet -) 1 packet PO TID [facility] [place] Multivit/Folic Acid/Iron ( Vitamins (Sjr) -) 1 tab PO DAILY [facility] [place] Last Admin: 12/16/17 09:10 Dose: 1 tab Thiamine HCl (Vitamin B1 -) 100 mg PO HS [facility] [place] Last Admin: 12/15/17 22:30 Dose: 100 mg - Objective Vital Signs: Vital Signs Temperature 36.7 C 12/16/17 06:00 Pulse Rate 90 12/16/17 06:00 Respiratory Rate 20 12/16/17 06:00 Blood Pressure 130/70 12/16/17 06:00 O2 Sat by Pulse Oximetry (%) 98 12/16/17 08:21 Constitutional: Yes: No Distress, Calm, Obese Cardiovascular: Yes: Regular Rate and Rhythm. No: Gallop, Murmur, Rub Respiratory: Yes: Regular, CTA Bilaterally. No: Rales, Rhonchi, Wheezes Gastrointestinal: Yes: Normal Bowel Sounds, Soft. No: Distention, Tenderness Extremities: Yes: WNL Edema: No Labs: CBC, BMP 12/16/17 06:20 12/16/17 06:20 INR, PTT INR 1.41 (0.82-1.09) H 12/13/17 04:26 Problem List - Problems (1) Hematoma Code(s): T14.8XXA - OTHER INJURY OF UNSPECIFIED BODY REGION, INITIAL ENCOUNTER (2) Acute alcohol intoxication Code(s): F10.929 - ALCOHOL USE, UNSPECIFIED WITH INTOXICATION, UNSPECIFIED Qualifiers: Complication of substance-induced condition: uncomplicated Qualified Code(s ): F10.929 - Alcohol use, unspecified with intoxication, unspecified (3) Alcoholic cirrhosis of liver Code(s): K70.30 - ALCOHOLIC CIRRHOSIS OF LIVER WITHOUT ASCITES Qualifiers: Ascites presence: with ascites Qualified Code(s): K70.31 - Alcoholic cirrhosis of liver with ascites (4) Hepatic encephalopathy Code(s): K72.90 - HEPATIC FAILURE, UNSPECIFIED WITHOUT COMA (5) Thrombocytopenia concurrent with and due to alcoholism Code(s): D69.59 - OTHER SECONDARY THROMBOCYTOPENIA; F10.20 - ALCOHOL DEPENDENCE , UNCOMPLICATED (6) Alcohol dependence with uncomplicated withdrawal Code(s): F10.230 - ALCOHOL DEPENDENCE WITH WITHDRAWAL, UNCOMPLICATED (7) Hypothyroid Code(s): E03.9 - HYPOTHYROIDISM, UNSPECIFIED Qualifiers: Assessment/Plan (1) Hematoma Assessment/Plan: -stable -monitor Code(s): T14.8XXA - OTHER INJURY OF UNSPECIFIED BODY REGION, INITIAL ENCOUNTER (2) Acute alcohol intoxication Assessment/Plan -resolved -continue librium taper -will need inpatient substance abuse rehabe Code(s): F10.929 - ALCOHOL USE, UNSPECIFIED WITH INTOXICATION, UNSPECIFIED Qualifiers: Complication of substance-induced condition: uncomplicated Qualified Code(s ): F10.929 - Alcohol use, unspecified with intoxication, unspecified (3) Alcoholic cirrhosis of liver Assessment/Plan: -chronic -continue to encourage patient to quit drinking -rehab when medically stable Code(s): K70.30 - ALCOHOLIC CIRRHOSIS OF LIVER WITHOUT ASCITES Qualifiers: Ascites presence: with ascites Qualified Code(s): K70.31 - Alcoholic cirrhosis of liver with ascites (4) Hepatic encephalopathy Assessment/Plan: -stable -continue lactulose Code(s): K72.90 - HEPATIC FAILURE, UNSPECIFIED WITHOUT COMA (5) Thrombocytopenia concurrent with and due to alcoholism Assessment/Plan: -appreciate hematology assistance -secondary to alcoholism -stable -discharge planning when cleared from hematology standpoint Code(s): D69.59 - OTHER SECONDARY THROMBOCYTOPENIA; F10.20 - ALCOHOL DEPENDENCE , UNCOMPLICATED (6) Alcohol dependence with uncomplicated withdrawal Assessment/Plan: -continue librium taper -patient will need inpatient alcohol rehab as outpatient was unsuccessful Code(s): F10.230 - ALCOHOL DEPENDENCE WITH WITHDRAWAL, UNCOMPLICATED (7) Hypothyroid Assessment/Plan: -continue synthroid Code(s): E03.9 - HYPOTHYROIDISM, UNSPECIFIED Qualifiers:
--- NOTE | 2017-12-16 13:18 | PN ---
Progress Note (short form) - Note Progress Note: Patient seen and examined continues to c/o pain at the site of bruising AFVSS Cor: RSR, No murmurs, No gallops Lungs: Clear to P&A Abd: Soft, Normal bowel sounds, No organomegaly skin --ecchymosis over the back, left shoulder, left breast Last Vital Signs Temp Pulse Resp BP Pulse Ox 98.0 F 90 20 130/70 98 12/16/17 06:00 12/16/17 06:00 12/16/17 06:00 12/16/17 06:00 12/16/17 08:21 CBC, BMP 12/16/17 06:20 12/16/17 06:20 Current Medications Generic Name Dose Route Start Last Admin Trade Name Freq PRN Reason Stop Dose Admin Chlordiazepoxide HCl 25 mg 12/16/17 05:00 12/16/17 05:22 Librium - PO 12/16/17 23:01 25 mg [id number] [place] Administration Chlordiazepoxide HCl 15 mg 12/17/17 05:00 Librium - PO 12/17/17 23:01 [id number] [place] Chlordiazepoxide HCl 25 mg 12/15/17 12:16 12/16/17 09:18 Librium - PO 12/18/17 12:15 25 mg Q4H PRN Administration WITHDRAWAL(CONT SUBST) Folic Acid 1 mg 12/14/17 10:00 12/16/17 09:10 Folic Acid - PO 1 mg DAILY [place] Administration Ibuprofen 400 mg 12/13/17 15:19 12/15/17 22:32 Motrin - PO 400 mg Q6H PRN Administration FEVER Lactulose 20 gm 12/14/17 10:00 12/16/17 09:09 Cephulac (Oral Use) PO 20 gm DAILY [place] Administration Levothyroxine Sodium 100 mcg 12/14/17 07:00 12/16/17 06:36 Synthroid - PO 100 mcg DAILY@0700 [place] Administration Magnesium Oxide 400 mg 12/13/17 22:00 12/16/17 09:10 Mag-Ox - PO 400 mg BID [place] Administration Pantoprazole Sodium 40 mg 12/13/17 22:00 12/16/17 09:10 Protonix - PO 40 mg BID [place] Administration Potassium Phos/Sodium Phos 1 packet 12/16/17 14:00 Phos-Nak Packet - PO TID [place] Multivit/Folic Acid/Iron 1 tab 12/14/17 10:00 12/16/17 09:10 Vitamins (Sjr) - PO 1 tab DAILY [place] Administration Thiamine HCl 100 mg 12/13/17 22:00 12/15/17 22:30 Vitamin B1 - PO 100 mg HS [place] Administration 57 y/o female with PMHx of anemia, GI bleeding, alcoholic cirrhosis, admitted with multiple hematomas, s/p fall and pancytopenia -likely acute on chronic pancytopenia due to acute alcohol intoxication superimposed on alcoholic cirrhosis. - transfusion goals are Hgb < 7 g/dl and platelets < 15,000 . transfuse platelets/FFP if actively bleeding currently hemoglobin stable. Monitor sites of ecchymosis/monitor platelets/coags /hgb -if tomorrow, the hematomas are worsening, will need to consider giving platelets/prbcs
[2017-12-16] MEDS ORDERED: ACETAMINOPHEN 325 MG TABLET (FP) PO ONE (13:19)
[2017-12-16] MEDS: NAPH,MB-DB/K PH,MBDB POWDER PACKET PO SCH ×2 (13:37→21:29)
[2017-12-16] MEDS: THIAMINE HCL 100 MG TABLET (FP) PO SCH (21:29)
[2017-12-17] MEDS: chlordiazePOXIDE 5 MG CAPSULE PO SCH ×4 (06:36→22:15)
[2017-12-17] MEDS: LEVOTHYROXINE NA 100 MCG TABLET (FP) PO SCH (06:36)
[2017-12-17] MEDS: NAPH,MB-DB/K PH,MBDB POWDER PACKET PO SCH ×3 (06:36→22:15)
[2017-12-17 07:27] LABS: INR 2.85 (0.82-1.09); PROTHROMBIN TIME (PATIENT) 32.2 SEC (9.7-13.0)
[2017-12-17 07:29] LABS: ACTIVATED PTT 36.2 SECONDS (26.9-34.4)
[2017-12-17 07:39] LABS: BASO % 0.2 % (0-2.0); EOS % 2.5 % (0-4.5); HEMATOCRIT 25.6 % (32.4-45.2); HEMOGLOBIN 8.7 GM/dL (10.7-15.3); LYMPH % 27.4 % (8-40); MCH 34.6 pg (25.7-33.7); MCHC 33.9 g/dl (32.0-36.0); MEAN CELL VOLUME 102.2 fl (80-96); MEAN PLT VOLUME 9.6 fl (7.5-11.1); MONO % 8.3 % (3.8-10.2); NEUT % 61.6 % (42.8-82.8); PLATELET COUNT 37 K/MM3 (134-434); RBC 2.51 M/mm3 (3.60-5.2); RDW 19.9 % (11.6-15.6); WHITE BLOOD COUNT 5.4 K/mm3 (4.0-10.0)
[2017-12-17 07:50] LABS: ANION GAP 10 (8-16); BLOOD UREA NITROGEN 8 mg/dL (7-18); CALCIUM 8.9 mg/dL (8.5-10.1); CHLORIDE 107 mmol/L (98-107); CO2 23 mmol/L (21-32); GLUCOSE,RANDOM 153 mg/dL (74-106); MAGNESIUM 1.9 mg/dL (1.8-2.4); POTASSIUM 3.8 mmol/L (3.5-5.1); SODIUM 140 mmol/L (136-145)
[2017-12-17 07:51] LABS: CREATININE 1.1 mg/dL (0.55-1.02); PHOSPHOROUS 3.5 mg/dL (2.5-4.9)
[2017-12-17] MEDS ORDERED: PT OWN MED DRAWER 7, Y5N ONE (09:16)
[2017-12-17] MEDS: FOLIC ACID 1 MG TABLET (FP) PO SCH (09:45)
[2017-12-17] MEDS: MAGNESIUM OXIDE 400 MG TABLET (FP) PO SCH ×2 (09:45→22:16)
[2017-12-17] MEDS: PRENATAL VITAMINS W/ FOLIC ACID TABLET (FP) PO SCH (09:45)
[2017-12-17] MEDS: PANTOPRAZOLE 40 MG TABLET (FP) PO SCH ×2 (09:45→22:16)
[2017-12-17] MEDS: LACTULOSE 20 GM/30 ML UDC (FOR ORAL USE ONLY) PO SCH ×3 (09:46→22:19)
[2017-12-17] MEDS ORDERED: PHYTONADIONE 10 MG/1 ML AMP IVPB ONE (11:09)
--- NOTE | 2017-12-17 11:29 | PN ---
Progress Note, Physician Chief Complaint: Ms Andino says she is feeling tired and weak. Still with pain, unchanged. No cp , sob, n/v. - Current Medication List Current Medications: Active Medications Chlordiazepoxide HCl (Librium -) 15 mg PO [id number] [facility] Stop: 12/17/17 23:01 Last Admin: 12/17/17 06:36 Dose: 15 mg Chlordiazepoxide HCl (Librium -) 25 mg PO Q4H PRN PRN Reason: WITHDRAWAL(CONT SUBST) Stop: 12/18/17 12:15 Last Admin: 12/16/17 09:18 Dose: 25 mg Folic Acid (Folic Acid -) 1 mg PO DAILY [facility] Last Admin: 12/17/17 09:45 Dose: 1 mg Lactulose (Cephulac (Oral Use)) 20 gm PO DAILY [facility] Last Admin: 12/17/17 09:46 Dose: Not Given Levothyroxine Sodium (Synthroid -) 100 mcg PO DAILY@0700 [facility] Last Admin: 12/17/17 06:36 Dose: 100 mcg Magnesium Oxide (Mag-Ox -) 400 mg PO BID [facility] Last Admin: 12/17/17 09:45 Dose: 400 mg Pantoprazole Sodium (Protonix -) 40 mg PO BID [facility] Last Admin: 12/17/17 09:45 Dose: 40 mg Potassium Phos/Sodium Phos (Phos-Nak Packet -) 1 packet PO TID [facility] Last Admin: 12/17/17 06:36 Dose: 1 packet Multivit/Folic Acid/Iron ( Vitamins (Sjr) -) 1 tab PO DAILY [facility] Last Admin: 12/17/17 09:45 Dose: 1 tab Thiamine HCl (Vitamin B1 -) 100 mg PO HS [facility] Last Admin: 12/16/17 21:29 Dose: 100 mg - Objective Vital Signs: Vital Signs Temperature 36.7 C 12/17/17 09:57 Pulse Rate 106 H 12/17/17 09:57 Respiratory Rate 18 12/17/17 09:57 Blood Pressure 114/60 12/17/17 09:57 O2 Sat by Pulse Oximetry (%) 97 12/17/17 10:00 Constitutional: Yes: No Distress, Calm, Obese Cardiovascular: Yes: Regular Rate and Rhythm. No: Gallop, Murmur, Rub Respiratory: Yes: Regular, CTA Bilaterally. No: Rales, Rhonchi, Wheezes Gastrointestinal: Yes: Normal Bowel Sounds, Soft. No: Distention, Tenderness Extremities: Yes: WNL Edema: No Integumentary: Yes: Other (ecchymosis) Labs: CBC, BMP 12/17/17 06:20 12/17/17 06:20 INR, PTT INR 2.85 (0.82-1.09) H D 12/17/17 06:20 Fibrinogen 219.0 mg/dL (238-498) L D 12/17/17 06:20 Problem List - Problems (1) Hematoma Code(s): T14.8XXA - OTHER INJURY OF UNSPECIFIED BODY REGION, INITIAL ENCOUNTER (2) Acute alcohol intoxication Code(s): F10.929 - ALCOHOL USE, UNSPECIFIED WITH INTOXICATION, UNSPECIFIED Qualifiers: Complication of substance-induced condition: uncomplicated Qualified Code(s ): F10.929 - Alcohol use, unspecified with intoxication, unspecified (3) Alcoholic cirrhosis of liver Code(s): K70.30 - ALCOHOLIC CIRRHOSIS OF LIVER WITHOUT ASCITES Qualifiers: Ascites presence: with ascites Qualified Code(s): K70.31 - Alcoholic cirrhosis of liver with ascites (4) Hepatic encephalopathy Code(s): K72.90 - HEPATIC FAILURE, UNSPECIFIED WITHOUT COMA (5) Thrombocytopenia concurrent with and due to alcoholism Code(s): D69.59 - OTHER SECONDARY THROMBOCYTOPENIA; F10.20 - ALCOHOL DEPENDENCE , UNCOMPLICATED (6) Alcohol dependence with uncomplicated withdrawal Code(s): F10.230 - ALCOHOL DEPENDENCE WITH WITHDRAWAL, UNCOMPLICATED (7) Hypothyroid Code(s): E03.9 - HYPOTHYROIDISM, UNSPECIFIED Qualifiers: Assessment/Plan (1) Hematoma Assessment/Plan: -stable -monitor Code(s): T14.8XXA - OTHER INJURY OF UNSPECIFIED BODY REGION, INITIAL ENCOUNTER (2) Acute alcohol intoxication Assessment/Plan -resolved -continue librium taper -continue discussion for inpatient substance rehab Code(s): F10.929 - ALCOHOL USE, UNSPECIFIED WITH INTOXICATION, UNSPECIFIED Qualifiers: Complication of substance-induced condition: uncomplicated Qualified Code(s ): F10.929 - Alcohol use, unspecified with intoxication, unspecified (3) Alcoholic cirrhosis of liver Assessment/Plan: -chronic -continue to encourage patient to quit drinking -rehab when medically stable Code(s): K70.30 - ALCOHOLIC CIRRHOSIS OF LIVER WITHOUT ASCITES Qualifiers: Ascites presence: with ascites Qualified Code(s): K70.31 - Alcoholic cirrhosis of liver with ascites (4) Hepatic encephalopathy Assessment/Plan: -patient complaining of fatigue and weakness -rechecked ammonia level, significantly elevated -suspect contributing to symptoms -change lactulose to tid -patient showed reluctance to increase dose -explained to her importance of taking this as could be cause of weakness Code(s): K72.90 - HEPATIC FAILURE, UNSPECIFIED WITHOUT COMA (5) Thrombocytopenia concurrent with and due to alcoholism Assessment/Plan: -appreciate hematology assistance -secondary to alcoholism -improving -INR also elevated, will give vitamin k today -recheck in am -discharge planning when cleared from hematology standpoint Code(s): D69.59 - OTHER SECONDARY THROMBOCYTOPENIA; F10.20 - ALCOHOL DEPENDENCE , UNCOMPLICATED (6) Alcohol dependence with uncomplicated withdrawal Assessment/Plan: -continue librium taper -patient will need inpatient alcohol rehab as outpatient was unsuccessful Code(s): F10.230 - ALCOHOL DEPENDENCE WITH WITHDRAWAL, UNCOMPLICATED (7) Hypothyroid Assessment/Plan: -continue synthroid Code(s): E03.9 - HYPOTHYROIDISM, UNSPECIFIED Qualifiers:
[2017-12-17] MEDS: THIAMINE HCL 100 MG TABLET (FP) PO SCH (22:16)
[2017-12-18] MEDS: NAPH,MB-DB/K PH,MBDB POWDER PACKET PO SCH ×3 (05:45→21:32)
[2017-12-18] MEDS: LACTULOSE 20 GM/30 ML UDC (FOR ORAL USE ONLY) PO SCH ×3 (05:48→21:31)
[2017-12-18] MEDS: LEVOTHYROXINE NA 100 MCG TABLET (FP) PO SCH (06:06)
[2017-12-18 06:40] LABS: BASO % 0.7 % (0-2.0); EOS % 2.3 % (0-4.5); HEMATOCRIT 24.8 % (32.4-45.2); HEMOGLOBIN 8.5 GM/dL (10.7-15.3); LYMPH % 29.3 % (8-40); MCH 35.3 pg (25.7-33.7); MCHC 34.1 g/dl (32.0-36.0); MEAN CELL VOLUME 103.4 fl (80-96); MEAN PLT VOLUME 8.8 fl (7.5-11.1); MONO % 11.3 % (3.8-10.2); NEUT % 56.4 % (42.8-82.8); RDW 20.1 % (11.6-15.6); WHITE BLOOD COUNT 4.8 K/mm3 (4.0-10.0)
[2017-12-18 07:01] LABS: ANION GAP 6 (8-16); BLOOD UREA NITROGEN 7 mg/dL (7-18); CALCIUM 8.5 mg/dL (8.5-10.1); CHLORIDE 106 mmol/L (98-107); CO2 27 mmol/L (21-32); GLUCOSE,RANDOM 138 mg/dL (74-106); MAGNESIUM 1.9 mg/dL (1.8-2.4); PHOSPHOROUS 4.5 mg/dL (2.5-4.9); POTASSIUM 3.7 mmol/L (3.5-5.1); SODIUM 139 mmol/L (136-145)
[2017-12-18 07:23] LABS: INR 1.51 (0.82-1.09); PROTHROMBIN TIME (PATIENT) 17.1 SEC (9.7-13.0)
[2017-12-18 07:49] LABS: PLATELET COUNT 32 K/MM3 (134-434)
[2017-12-18] MEDS ORDERED: PT OWN MED DRAWER 7, Y5N ONE (09:01)
[2017-12-18] MEDS: MAGNESIUM OXIDE 400 MG TABLET (FP) PO SCH ×2 (09:05→21:32)
[2017-12-18] MEDS: PANTOPRAZOLE 40 MG TABLET (FP) PO SCH ×2 (09:05→21:32)
[2017-12-18] MEDS: FOLIC ACID 1 MG TABLET (FP) PO SCH (09:05)
[2017-12-18] MEDS: PRENATAL VITAMINS W/ FOLIC ACID TABLET (FP) PO SCH (09:06)
--- NOTE | 2017-12-18 10:45 | PN ---
Progress Note, Physician Chief Complaint: Ms Andino complains of diarrhea, refused am lactulose. Still with weakness and tremors but improved. No cp, sob, n/v. - Current Medication List Current Medications: Active Medications Chlordiazepoxide HCl (Librium -) 25 mg PO Q4H PRN PRN Reason: WITHDRAWAL(CONT SUBST) Stop: 12/18/17 12:15 Last Admin: 12/16/17 09:18 Dose: 25 mg Folic Acid (Folic Acid -) 1 mg PO DAILY [facility] Last Admin: 12/18/17 09:05 Dose: 1 mg Lactulose (Cephulac (Oral Use)) 20 gm PO TID [facility] Last Admin: 12/18/17 05:48 Dose: Not Given Levothyroxine Sodium (Synthroid -) 100 mcg PO DAILY@0700 [facility] Last Admin: 12/18/17 06:06 Dose: 100 mcg Magnesium Oxide (Mag-Ox -) 400 mg PO BID [facility] Last Admin: 12/18/17 09:05 Dose: 400 mg Pantoprazole Sodium (Protonix -) 40 mg PO BID [facility] Last Admin: 12/18/17 09:05 Dose: 40 mg Potassium Phos/Sodium Phos (Phos-Nak Packet -) 1 packet PO TID [facility] Last Admin: 12/18/17 05:45 Dose: 1 packet Multivit/Folic Acid/Iron ( Vitamins (Sjr) -) 1 tab PO DAILY [facility] Last Admin: 12/18/17 09:06 Dose: 1 tab Thiamine HCl (Vitamin B1 -) 100 mg PO HS [facility] Last Admin: 12/17/17 22:16 Dose: 100 mg - Objective Vital Signs: Vital Signs Temperature 36.9 C 12/18/17 06:00 Pulse Rate 95 H 12/18/17 06:00 Respiratory Rate 20 12/18/17 08:56 Blood Pressure 123/56 12/18/17 06:00 O2 Sat by Pulse Oximetry (%) 95 12/18/17 08:56 Constitutional: Yes: No Distress, Calm, Obese Cardiovascular: Yes: Regular Rate and Rhythm. No: Gallop, Murmur, Rub Respiratory: Yes: Regular, CTA Bilaterally. No: Rales, Rhonchi, Wheezes Gastrointestinal: Yes: Normal Bowel Sounds, Soft. No: Distention, Tenderness Extremities: Yes: WNL Edema: No Labs: CBC, BMP 12/18/17 05:35 12/18/17 05:35 INR, PTT INR 1.51 (0.82-1.09) H D 12/18/17 05:35 Fibrinogen 219.0 mg/dL (238-498) L D 12/17/17 06:20 Problem List - Problems (1) Hematoma Code(s): T14.8XXA - OTHER INJURY OF UNSPECIFIED BODY REGION, INITIAL ENCOUNTER (2) Acute alcohol intoxication Code(s): F10.929 - ALCOHOL USE, UNSPECIFIED WITH INTOXICATION, UNSPECIFIED Qualifiers: Complication of substance-induced condition: uncomplicated Qualified Code(s ): F10.929 - Alcohol use, unspecified with intoxication, unspecified (3) Alcoholic cirrhosis of liver Code(s): K70.30 - ALCOHOLIC CIRRHOSIS OF LIVER WITHOUT ASCITES Qualifiers: Ascites presence: with ascites Qualified Code(s): K70.31 - Alcoholic cirrhosis of liver with ascites (4) Hepatic encephalopathy Code(s): K72.90 - HEPATIC FAILURE, UNSPECIFIED WITHOUT COMA (5) Thrombocytopenia concurrent with and due to alcoholism Code(s): D69.59 - OTHER SECONDARY THROMBOCYTOPENIA; F10.20 - ALCOHOL DEPENDENCE , UNCOMPLICATED (6) Alcohol dependence with uncomplicated withdrawal Code(s): F10.230 - ALCOHOL DEPENDENCE WITH WITHDRAWAL, UNCOMPLICATED (7) Hypothyroid Code(s): E03.9 - HYPOTHYROIDISM, UNSPECIFIED Qualifiers: Assessment/Plan (1) Hematoma Assessment/Plan: -stable -monitor Code(s): T14.8XXA - OTHER INJURY OF UNSPECIFIED BODY REGION, INITIAL ENCOUNTER (2) Acute alcohol intoxication Assessment/Plan -resolved -s/p librium taper Code(s): F10.929 - ALCOHOL USE, UNSPECIFIED WITH INTOXICATION, UNSPECIFIED Qualifiers: Complication of substance-induced condition: uncomplicated Qualified Code(s ): F10.929 - Alcohol use, unspecified with intoxication, unspecified (3) Alcoholic cirrhosis of liver Assessment/Plan: -chronic -continue to encourage patient to quit drinking -rehab when medically stable Code(s): K70.30 - ALCOHOLIC CIRRHOSIS OF LIVER WITHOUT ASCITES Qualifiers: Ascites presence: with ascites Qualified Code(s): K70.31 - Alcoholic cirrhosis of liver with ascites (4) Hepatic encephalopathy Assessment/Plan: -ammonia level severely elevated -increased lactulose to tid -patient refused morning dose -encouraged to take lactulose -patient agrees -recheck ammonia level in am, may be able to decrease Code(s): K72.90 - HEPATIC FAILURE, UNSPECIFIED WITHOUT COMA (5) Thrombocytopenia concurrent with and due to alcoholism Assessment/Plan: -appreciate hematology assistance -secondary to alcoholism -stable -discharge planning when cleared from hematology standpoint Code(s): D69.59 - OTHER SECONDARY THROMBOCYTOPENIA; F10.20 - ALCOHOL DEPENDENCE , UNCOMPLICATED (6) Alcohol dependence with uncomplicated withdrawal Assessment/Plan: -continue librium taper -patient will need inpatient alcohol rehab as outpatient was unsuccessful Code(s): F10.230 - ALCOHOL DEPENDENCE WITH WITHDRAWAL, UNCOMPLICATED (7) Hypothyroid Assessment/Plan: -continue synthroid Code(s): E03.9 - HYPOTHYROIDISM, UNSPECIFIED Qualifiers: Dispo -plan for discharge to SNF after cleared by hematology and hepatic encephalopathy improves
--- NOTE | 2017-12-18 11:35 | PN ---
Progress Note (short form) - Note Progress Note: pt with epistaxis on my rounds. Pt seen and examined labs reviewed. AFVSS Cor: RSR, No murmurs, No gallops Lungs: Clear to P&A Abd: Soft, Normal bowel sounds, No organomegaly skin --ecchymosis over the back, left shoulder, left breast--stable Last Vital Signs Temp Pulse Resp BP Pulse Ox 98.4 F 95 H 20 123/56 95 12/18/17 06:00 12/18/17 06:00 12/18/17 08:56 12/18/17 06:00 12/18/17 08:56 CBC, BMP 12/18/17 05:35 12/18/17 05:35 Current Medications Generic Name Dose Route Start Last Admin Trade Name Freq PRN Reason Stop Dose Admin Chlordiazepoxide HCl 25 mg 12/15/17 12:16 12/16/17 09:18 Librium - PO 12/18/17 12:15 25 mg Q4H PRN Administration WITHDRAWAL(CONT SUBST) Folic Acid 1 mg 12/14/17 10:00 12/18/17 09:05 Folic Acid - PO 1 mg DAILY [facility] Administration Lactulose 20 gm 12/17/17 14:00 12/18/17 05:48 Cephulac (Oral Use) PO Not Given TID [facility] Levothyroxine Sodium 100 mcg 12/14/17 07:00 12/18/17 06:06 Synthroid - PO 100 mcg DAILY@0700 [facility] Administration Magnesium Oxide 400 mg 12/13/17 22:00 12/18/17 09:05 Mag-Ox - PO 400 mg BID [place] Administration Pantoprazole Sodium 40 mg 12/13/17 22:00 12/18/17 09:05 Protonix - PO 40 mg BID [place] Administration Potassium Phos/Sodium Phos 1 packet 12/16/17 14:00 12/18/17 05:45 Phos-Nak Packet - PO 1 packet TID [facility] Administration Multivit/Folic Acid/Iron 1 tab 12/14/17 10:00 12/18/17 09:06 Vitamins (Sjr) - PO 1 tab DAILY [facility] Administration Thiamine HCl 100 mg 12/13/17 22:00 12/17/17 22:16 Vitamin B1 - PO 100 mg HS [facility] Administration 57 y/o female with PMHx of anemia, GI bleeding, alcoholic cirrhosis, admitted with multiple hematomas, s/p fall and pancytopenia cirrhosis splenomegaly acute alcohol BM suppression chronic alcoholic. Hepatic encephalopathy Coagulopathy. Would take time for the bone marrow to recover at least close to her baseline. This would be ongoing to permanent issue with cytopenias in the setting of her continuing alcohol intake/cirrhosis/splenomegaly due to epistaxis - will give one SDU platelets. at risk for falls due to HE/at risk for bleeding explained to the pt.
[2017-12-18] MEDS: THIAMINE HCL 100 MG TABLET (FP) PO SCH (21:32)
[2017-12-19] MEDS: LACTULOSE 20 GM/30 ML UDC (FOR ORAL USE ONLY) PO SCH ×3 (05:39→21:45)
[2017-12-19] MEDS: NAPH,MB-DB/K PH,MBDB POWDER PACKET PO SCH ×3 (05:39→21:45)
[2017-12-19] MEDS: LEVOTHYROXINE NA 100 MCG TABLET (FP) PO SCH (06:07)
[2017-12-19 06:31] LABS: BASO % 0.5 % (0-2.0); EOS % 1.5 % (0-4.5); HEMATOCRIT 22.6 % (32.4-45.2); HEMOGLOBIN 7.8 GM/dL (10.7-15.3); LYMPH % 18.7 % (8-40); MCH 35.3 pg (25.7-33.7); MCHC 34.6 g/dl (32.0-36.0); MEAN CELL VOLUME 102.2 fl (80-96); MEAN PLT VOLUME 9.6 fl (7.5-11.1); MONO % 9.9 % (3.8-10.2); NEUT % 69.4 % (42.8-82.8); RBC 2.21 M/mm3 (3.60-5.2); RDW 20.7 % (11.6-15.6); WHITE BLOOD COUNT 4.7 K/mm3 (4.0-10.0)
[2017-12-19 06:54] LABS: PLATELET COUNT 33 K/MM3 (134-434)
[2017-12-19 07:07] LABS: ANION GAP 7 (8-16); BLOOD UREA NITROGEN 8 mg/dL (7-18); CALCIUM 8.5 mg/dL (8.5-10.1); CHLORIDE 106 mmol/L (98-107); CO2 25 mmol/L (21-32); GLUCOSE,RANDOM 195 mg/dL (74-106); SODIUM 138 mmol/L (136-145)
[2017-12-19 07:08] LABS: CREATININE 1.1 mg/dL (0.55-1.02)
[2017-12-19 07:18] LABS: POTASSIUM 4.1 mmol/L (3.5-5.1)
[2017-12-19 08:40] LABS: ANISOCYTOSIS 1+; MACROCYTOSIS 1+; PLATELET ESTIMATE DECREASED; TEAR DROP CELLS 1+
--- NOTE | 2017-12-19 08:59 | PN ---
Progress Note, Physician Chief Complaint: Feels better completed break fast c/o Rt shoulder pain, epistaxis is improved after platelet transfusion. History of Present Illness: 57 yo female, recent hospitalization for anemia/ GI bleed, thrombocytopenia due to alcohol cirrhosis, discharged recently after about a 3 week hospitalization. Did begin drinking alcohol again, present with a fall with chin laceration, Rt post chest wall hematoma in the setting of ETOH intoxication. - Current Medication List Current Medications: Active Medications Folic Acid (Folic Acid -) 1 mg PO DAILY [facility] Last Admin: 12/18/17 09:05 Dose: 1 mg Lactulose (Cephulac (Oral Use)) 20 gm PO TID [facility] Last Admin: 12/19/17 05:39 Dose: 20 gm Levothyroxine Sodium (Synthroid -) 100 mcg PO DAILY@0700 [facility] Last Admin: 12/19/17 06:07 Dose: 100 mcg Magnesium Oxide (Mag-Ox -) 400 mg PO BID [facility] Last Admin: 12/18/17 21:32 Dose: 400 mg Pantoprazole Sodium (Protonix -) 40 mg PO BID [facility] Last Admin: 12/18/17 21:32 Dose: 40 mg Potassium Phos/Sodium Phos (Phos-Nak Packet -) 1 packet PO TID [facility] Last Admin: 12/19/17 05:39 Dose: 1 packet Multivit/Folic Acid/Iron ( Vitamins (Sjr) -) 1 tab PO DAILY [facility] Last Admin: 12/18/17 09:06 Dose: 1 tab Thiamine HCl (Vitamin B1 -) 100 mg PO HS [facility] Last Admin: 12/18/17 21:32 Dose: 100 mg - Objective Vital Signs: Vital Signs Temperature 98.2 F 12/19/17 06:00 Pulse Rate 90 12/19/17 06:00 Respiratory Rate 20 12/19/17 08:10 Blood Pressure 111/54 12/19/17 06:00 O2 Sat by Pulse Oximetry (%) 95 12/19/17 08:10 HEENT; Mm moist, anemia, contusion with lacerated wound on chin NECK; Supple, no JVd , No Bruit, no Thyromegaly CHEST: Large hematoma, Rt Post chest wall, minimal basal Crepts CVS: S1S2 R, no m/g/r ABD: Mild distention, non tender, spleenomegaly. EXT: No edema feet, pulses + SPACE PHYSICIST: AOx3, non focal, fine tremors on outstretched hands Labs: CBC, BMP 12/19/17 06:00 12/19/17 06:00 INR, PTT INR 1.51 (0.82-1.09) H D 12/18/17 05:35 Fibrinogen 219.0 mg/dL (238-498) L D 12/17/17 06:20 Problem List - Problems (1) Hematoma Assessment/Plan: Chest Wall hematoma due to trauma, in the setting of thrombocytopenia, incentive spectrometry. Code(s): T14.8XXA - OTHER INJURY OF UNSPECIFIED BODY REGION, INITIAL ENCOUNTER (2) Acute alcohol intoxication Assessment/Plan: Resplve3 no hallucinations or illusions, off Librium cont B complex, thiamine and folic acid,. Code(s): F10.929 - ALCOHOL USE, UNSPECIFIED WITH INTOXICATION, UNSPECIFIED Qualifiers: Complication of substance-induced condition: uncomplicated Qualified Code(s ): F10.929 - Alcohol use, unspecified with intoxication, unspecified (3) Alcoholic cirrhosis of liver Assessment/Plan: Advance Hepatic ETOH induced cirrhosis, agreeing for detox Code(s): K70.30 - ALCOHOLIC CIRRHOSIS OF LIVER WITHOUT ASCITES Qualifiers: Ascites presence: with ascites Qualified Code(s): K70.31 - Alcoholic cirrhosis of liver with ascites (4) Hepatic encephalopathy Assessment/Plan: Resolving cont Lactulose Code(s): K72.90 - HEPATIC FAILURE, UNSPECIFIED WITHOUT COMA (5) Hypothyroid Assessment/Plan: cont Levothyroxine Code(s): E03.9 - HYPOTHYROIDISM, UNSPECIFIED Qualifiers: (6) Anemia Assessment/Plan: Chronic H/H stable, multi-factorial Code(s): D64.9 - ANEMIA, UNSPECIFIED (7) Epistaxis Assessment/Plan: Resolved after platelete transfusion Code(s): R04.0 - EPISTAXIS (8) Decreased platelet count Assessment/Plan: Stable after platelet transfusion f/u Hematology recommendations. Code(s): D69.6 - THROMBOCYTOPENIA, UNSPECIFIED
[2017-12-19] MEDS: PRENATAL VITAMINS W/ FOLIC ACID TABLET (FP) PO SCH (09:30)
[2017-12-19] MEDS: PANTOPRAZOLE 40 MG TABLET (FP) PO SCH ×2 (09:33→21:45)
[2017-12-19] MEDS: FOLIC ACID 1 MG TABLET (FP) PO SCH (09:33)
[2017-12-19] MEDS: MAGNESIUM OXIDE 400 MG TABLET (FP) PO SCH ×2 (09:33→21:45)
--- NOTE | 2017-12-19 16:50 | PN ---
Progress Note (short form) - Note Progress Note: pt with epistaxis on my rounds. Pt seen and examined labs reviewed. AFVSS Cor: RSR, No murmurs, No gallops Lungs: Clear to P&A Abd: Soft, Normal bowel sounds, No organomegaly skin --ecchymosis over the back, left shoulder, left breast--stable Last Vital Signs Temp Pulse Resp BP Pulse Ox 98.4 F 95 H 20 123/56 95 12/18/17 06:00 12/18/17 06:00 12/18/17 08:56 12/18/17 06:00 12/18/17 08:56 CBC, BMP 12/18/17 05:35 12/18/17 05:35 Current Medications Generic Name Dose Route Start Last Admin Trade Name Freq PRN Reason Stop Dose Admin Chlordiazepoxide HCl 25 mg 12/15/17 12:16 12/16/17 09:18 Librium - PO 12/18/17 12:15 25 mg Q4H PRN Administration WITHDRAWAL(CONT SUBST) Folic Acid 1 mg 12/14/17 10:00 12/18/17 09:05 Folic Acid - PO 1 mg DAILY [facility] Administration Lactulose 20 gm 12/17/17 14:00 12/18/17 05:48 Cephulac (Oral Use) PO Not Given TID [facility] Levothyroxine Sodium 100 mcg 12/14/17 07:00 12/18/17 06:06 Synthroid - PO 100 mcg DAILY@0700 [facility] Administration Magnesium Oxide 400 mg 12/13/17 22:00 12/18/17 09:05 Mag-Ox - PO 400 mg BID [facility] Administration Pantoprazole Sodium 40 mg 12/13/17 22:00 12/18/17 09:05 Protonix - PO 40 mg BID [facility] Administration Potassium Phos/Sodium Phos 1 packet 12/16/17 14:00 12/18/17 05:45 Phos-Nak Packet - PO 1 packet TID [facility] Administration Multivit/Folic Acid/Iron 1 tab 12/14/17 10:00 12/18/17 09:06 Vitamins (Sjr) - PO 1 tab DAILY [facility] Administration Thiamine HCl 100 mg 12/13/17 22:00 12/17/17 22:16 Vitamin B1 - PO 100 mg HS [facility] Administration 57 y/o female with PMHx of anemia, GI bleeding, alcoholic cirrhosis, admitted with multiple hematomas, s/p fall and pancytopenia cirrhosis splenomegaly acute alcohol BM suppression chronic alcoholic. Hepatic encephalopathy Coagulopathy. Would take time for the bone marrow to recover at least close to her baseline. This would be ongoing to permanent issue with cytopenias in the setting of her continuing alcohol intake/cirrhosis/splenomegaly Supportive care platelets <[id number] , prbcs if <7.0. unless bleeding. consider GI consult.
[2017-12-19] MEDS: THIAMINE HCL 100 MG TABLET (FP) PO SCH (21:45)
[2017-12-20] MEDS: LACTULOSE 20 GM/30 ML UDC (FOR ORAL USE ONLY) PO SCH ×3 (06:07→22:57)
[2017-12-20] MEDS: LEVOTHYROXINE NA 100 MCG TABLET (FP) PO SCH (06:07)
[2017-12-20] MEDS: NAPH,MB-DB/K PH,MBDB POWDER PACKET PO SCH ×3 (06:07→22:57)
[2017-12-20 06:37] LABS: BASO % 0.8 % (0-2.0); EOS % 2.3 % (0-4.5); HEMATOCRIT 24.1 % (32.4-45.2); HEMOGLOBIN 8.2 GM/dL (10.7-15.3); LYMPH % 31.3 % (8-40); MEAN CELL VOLUME 102.9 fl (80-96); MEAN PLT VOLUME 8.7 fl (7.5-11.1); MONO % 14.5 % (3.8-10.2); NEUT % 51.1 % (42.8-82.8); PLATELET COUNT 37 K/MM3 (134-434); RBC 2.34 M/mm3 (3.60-5.2); RDW 20.6 % (11.6-15.6)
[2017-12-20 07:02] LABS: ALBUMIN 2.6 g/dl (3.4-5.0); ANION GAP 6 (8-16); BLOOD UREA NITROGEN 8 mg/dL (7-18); CALCIUM 8.7 mg/dL (8.5-10.1); CHLORIDE 107 mmol/L (98-107); CO2 27 mmol/L (21-32); CREATININE 1.1 mg/dL (0.55-1.02); GLUCOSE,RANDOM 181 mg/dL (74-106); POTASSIUM 3.6 mmol/L (3.5-5.1); SGOT/AST 40 U/L (15-37); SGPT/ALT 18 U/L (12-78); SODIUM 140 mmol/L (136-145)
[2017-12-20 07:04] LABS: ALK PHOS 146 U/L (45-117); BILIRUBIN,TOTAL 2.7 mg/dL (0.2-1.0); TOT PROT 6.6 g/dl (6.4-8.2)
[2017-12-20] MEDS ORDERED: PT OWN MED DRAWER 7, Y5N ONE (08:53)
[2017-12-20] MEDS: PRENATAL VITAMINS W/ FOLIC ACID TABLET (FP) PO SCH (09:10)
[2017-12-20] MEDS: PANTOPRAZOLE 40 MG TABLET (FP) PO SCH ×2 (09:11→22:57)
[2017-12-20] MEDS: FOLIC ACID 1 MG TABLET (FP) PO SCH (09:11)
[2017-12-20] MEDS: MAGNESIUM OXIDE 400 MG TABLET (FP) PO SCH ×2 (09:11→22:57)
--- NOTE | 2017-12-20 11:52 | PN ---
Progress Note, Physician Chief Complaint: Feels better tolerating PO still c/o Rt shoulder pain, no epistaxis after platelet transfusion. History of Present Illness: 57 yo female, recent hospitalization for anemia/ GI bleed, thrombocytopenia due to alcohol cirrhosis, discharged recently after about a 3 week hospitalization. Did begin drinking alcohol again, present with a fall with chin laceration, Rt post chest wall hematoma in the setting of ETOH intoxication. - Current Medication List Current Medications: Active Medications Folic Acid (Folic Acid -) 1 mg PO DAILY [facility] Last Admin: 12/20/17 09:11 Dose: 1 mg Lactulose (Cephulac (Oral Use)) 20 gm PO TID [facility] Last Admin: 12/20/17 06:07 Dose: 20 gm Levothyroxine Sodium (Synthroid -) 100 mcg PO DAILY@0700 [facility] Last Admin: 12/20/17 06:07 Dose: 100 mcg Magnesium Oxide (Mag-Ox -) 400 mg PO BID [facility] Last Admin: 12/20/17 09:11 Dose: 400 mg Pantoprazole Sodium (Protonix -) 40 mg PO BID [facility] Last Admin: 12/20/17 09:11 Dose: 40 mg Potassium Phos/Sodium Phos (Phos-Nak Packet -) 1 packet PO TID [facility] Last Admin: 12/20/17 06:07 Dose: 1 packet Multivit/Folic Acid/Iron ( Vitamins (Sjr) -) 1 tab PO DAILY [facility] Last Admin: 12/20/17 09:10 Dose: 1 tab Thiamine HCl (Vitamin B1 -) 100 mg PO HS [facility] Last Admin: 12/19/17 21:45 Dose: 100 mg - Objective Vital Signs: Vital Signs Temperature 97.8 F 12/20/17 05:29 Pulse Rate 82 12/20/17 05:29 Respiratory Rate 20 12/20/17 05:29 Blood Pressure 146/76 12/20/17 05:29 O2 Sat by Pulse Oximetry (%) 94 L 12/19/17 21:00 HEENT; Mm moist, anemia, contusion with lacerated wound on chin NECK; Supple, no JVd , No Bruit, no Thyromegaly CHEST: Large hematoma, Rt Post chest wall, minimal basal Crepts CVS: S1S2 R, no m/g/r ABD: Mild distention, non tender, enlarged spleen.. EXT: No edema feet, pulses + FREIGHT TEAM ASSOCIATE: AOx3, non focal, fine tremors on outstretched hands Labs: CBC, BMP 12/20/17 06:00 12/20/17 06:00 INR, PTT INR 1.51 (0.82-1.09) H D 12/18/17 05:35 Fibrinogen 219.0 mg/dL (238-498) L D 12/17/17 06:20 Problem List - Problems (1) Hematoma Assessment/Plan: Chest Wall hematoma due to trauma, in the setting of thrombocytopenia, incentive spectrometry. Code(s): T14.8XXA - OTHER INJURY OF UNSPECIFIED BODY REGION, INITIAL ENCOUNTER (2) Acute alcohol intoxication Assessment/Plan: Resplve3 no hallucinations or illusions, off Librium cont B complex, thiamine and folic acid,. Code(s): F10.929 - ALCOHOL USE, UNSPECIFIED WITH INTOXICATION, UNSPECIFIED Qualifiers: Complication of substance-induced condition: uncomplicated Qualified Code(s ): F10.929 - Alcohol use, unspecified with intoxication, unspecified (3) Alcoholic cirrhosis of liver Assessment/Plan: Advance Hepatic ETOH induced cirrhosis, agreeing for detox Code(s): K70.30 - ALCOHOLIC CIRRHOSIS OF LIVER WITHOUT ASCITES Qualifiers: Ascites presence: with ascites Qualified Code(s): K70.31 - Alcoholic cirrhosis of liver with ascites (4) Hepatic encephalopathy Assessment/Plan: Resolving cont Lactulose Code(s): K72.90 - HEPATIC FAILURE, UNSPECIFIED WITHOUT COMA (5) Hypothyroid Code(s): E03.9 - HYPOTHYROIDISM, UNSPECIFIED Qualifiers: (6) Anemia Assessment/Plan: Chronic H/H stable, multi-factorial Code(s): D64.9 - ANEMIA, UNSPECIFIED (7) Epistaxis Assessment/Plan: Resolved after platelete transfusion Code(s): R04.0 - EPISTAXIS (8) Decreased platelet count Assessment/Plan: Stable after platelet transfusion f/u Hematology recommendations. Code(s): D69.6 - THROMBOCYTOPENIA, UNSPECIFIED
[2017-12-20] MEDS: THIAMINE HCL 100 MG TABLET (FP) PO SCH (22:58)
[2017-12-20] MEDS: MELATONIN 1 MG TABLET PO PRN (22:58)
[2017-12-21] MEDS: LACTULOSE 20 GM/30 ML UDC (FOR ORAL USE ONLY) PO SCH ×3 (06:49→22:57)
[2017-12-21] MEDS: NAPH,MB-DB/K PH,MBDB POWDER PACKET PO SCH ×3 (06:49→22:56)
[2017-12-21] MEDS: LEVOTHYROXINE NA 100 MCG TABLET (FP) PO SCH (06:50)
[2017-12-21 08:18] LABS: BASO % 0.7 % (0-2.0); EOS % 2.6 % (0-4.5); HEMATOCRIT 25.3 % (32.4-45.2); HEMOGLOBIN 8.6 GM/dL (10.7-15.3); MCH 34.9 pg (25.7-33.7); MCHC 33.8 g/dl (32.0-36.0); MEAN CELL VOLUME 103.2 fl (80-96); MEAN PLT VOLUME 9.6 fl (7.5-11.1); MONO % 14.6 % (3.8-10.2); NEUT % 51.1 % (42.8-82.8); PLATELET COUNT 50 K/MM3 (134-434); RBC 2.45 M/mm3 (3.60-5.2); RDW 20.4 % (11.6-15.6); WHITE BLOOD COUNT 3.8 K/mm3 (4.0-10.0)
[2017-12-21 09:04] LABS: CHLORIDE 104 mmol/L (98-107); POTASSIUM 3.6 mmol/L (3.5-5.1); SODIUM 139 mmol/L (136-145)
[2017-12-21 09:35] LABS: ALBUMIN 2.7 g/dl (3.4-5.0); ALK PHOS 152 U/L (45-117); ANION GAP 9 (8-16); BILIRUBIN,TOTAL 2.6 mg/dL (0.2-1.0); BLOOD UREA NITROGEN 7 mg/dL (7-18); CALCIUM 8.7 mg/dL (8.5-10.1); CO2 26 mmol/L (21-32); CREATININE 1.1 mg/dL (0.55-1.02); GLUCOSE,RANDOM 187 mg/dL (74-106); SGOT/AST 42 U/L (15-37); SGPT/ALT 18 U/L (12-78); TOT PROT 6.8 g/dl (6.4-8.2)
[2017-12-21] MEDS ORDERED: PT OWN MED DRAWER 7, Y5N ONE ×2 (10:03→22:53)
[2017-12-21] MEDS: MAGNESIUM OXIDE 400 MG TABLET (FP) PO SCH ×2 (10:15→22:56)
[2017-12-21] MEDS: FOLIC ACID 1 MG TABLET (FP) PO SCH (10:15)
[2017-12-21] MEDS: PRENATAL VITAMINS W/ FOLIC ACID TABLET (FP) PO SCH (10:15)
[2017-12-21] MEDS: PANTOPRAZOLE 40 MG TABLET (FP) PO SCH ×2 (10:15→22:56)
--- NOTE | 2017-12-21 15:44 | PN ---
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 Did begin drinking alcohol again, present with a fall with chin laceration, Rt post chest wall hematoma in the setting of ETOH intoxication. - Current Medication List Current Medications: Active Medications Folic Acid (Folic Acid -) 1 mg PO DAILY [facility] Last Admin: 12/21/17 10:15 Dose: 1 mg Lactulose (Cephulac (Oral Use)) 20 gm PO TID [facility] Last Admin: 12/21/17 13:22 Dose: 20 gm Levothyroxine Sodium (Synthroid -) 100 mcg PO DAILY@0700 [facility] Last Admin: 12/21/17 06:50 Dose: 100 mcg Magnesium Oxide (Mag-Ox -) 400 mg PO BID [facility] Last Admin: 12/21/17 10:15 Dose: 400 mg Melatonin (Melatonin) 1 mg PO HS PRN PRN Reason: INSOMNIA Last Admin: 12/20/17 22:58 Dose: 1 mg Pantoprazole Sodium (Protonix -) 40 mg PO BID [facility] Last Admin: 12/21/17 10:15 Dose: 40 mg Potassium Phos/Sodium Phos (Phos-Nak Packet -) 1 packet PO TID [facility] Last Admin: 12/21/17 13:22 Dose: 1 packet Multivit/Folic Acid/Iron ( Vitamins (Sjr) -) 1 tab PO DAILY [facility] Last Admin: 12/21/17 10:15 Dose: 1 tab Thiamine HCl (Vitamin B1 -) 100 mg PO HS [facility] Last Admin: 12/20/17 22:58 Dose: 100 mg - Objective Vital Signs: Vital Signs Temperature 98.8 F 12/21/17 14:00 Pulse Rate 90 12/21/17 14:00 Respiratory Rate 18 12/21/17 14:00 Blood Pressure 137/69 12/21/17 14:00 O2 Sat by Pulse Oximetry (%) 97 12/21/17 09:00 HEENT; Mm moist, anemia, contusion with lacerated wound on chin NECK; Supple, no JVd , No Bruit, no Thyromegaly CHEST: Large hematoma, Rt Post chest wall, Rt sided reps, minimal basal Crepts CVS: S1S2 R, no m/g/r ABD: Mild distention, non tender, enlarged spleen.. EXT: No edema feet, pulses + ROPE CUTTER: AOx3, non focal, fine tremors on outstretched hands Labs: CBC, BMP 12/21/17 07:34 12/21/17 07:34 INR, PTT INR 1.51 (0.82-1.09) H D 12/18/17 05:35 Fibrinogen 219.0 mg/dL (238-498) L D 12/17/17 06:20 Problem List - Problems (1) Hematoma Assessment/Plan: Chest Wall hematoma due to trauma, in the setting of thrombocytopenia, incentive spectrometry. Code(s): T14.8XXA - OTHER INJURY OF UNSPECIFIED BODY REGION, INITIAL ENCOUNTER (2) Acute alcohol intoxication Assessment/Plan: Resplve3 no hallucinations or illusions, off Librium cont B complex, thiamine and folic acid,. Code(s): F10.929 - ALCOHOL USE, UNSPECIFIED WITH INTOXICATION, UNSPECIFIED Qualifiers: Complication of substance-induced condition: uncomplicated Qualified Code(s ): F10.929 - Alcohol use, unspecified with intoxication, unspecified (3) Alcoholic cirrhosis of liver Assessment/Plan: Advance Hepatic ETOH induced cirrhosis, agreeing for detox Code(s): K70.30 - ALCOHOLIC CIRRHOSIS OF LIVER WITHOUT ASCITES Qualifiers: Ascites presence: with ascites Qualified Code(s): K70.31 - Alcoholic cirrhosis of liver with ascites (4) Hepatic encephalopathy Assessment/Plan: Resolving cont Lactulose Code(s): K72.90 - HEPATIC FAILURE, UNSPECIFIED WITHOUT COMA (5) Hypothyroid Assessment/Plan: cont Levothyroxine Code(s): E03.9 - HYPOTHYROIDISM, UNSPECIFIED Qualifiers: (6) Anemia Assessment/Plan: Chronic H/H stable, multi-factorial Code(s): D64.9 - ANEMIA, UNSPECIFIED (7) Decreased platelet count Assessment/Plan: Stable after platelet transfusion f/u Hematology recommendations. Code(s): D69.6 - THROMBOCYTOPENIA, UNSPECIFIED (8) Chest wall pain Assessment/Plan: Due to mematoma may be atelactasis insentive spirometry, CXR Code(s): R07.89 - OTHER CHEST PAIN
--- NOTE | 2017-12-21 16:24 | PN ---
Progress Note (short form) - Note Progress Note: pt with epistaxis on my rounds. Pt seen and examined labs reviewed. pt improving AFVSS Cor: RSR, No murmurs, No gallops Lungs: Clear to P&A Abd: Soft, Normal bowel sounds, No organomegaly skin --ecchymosis over the back, left shoulder, left breast--stable Last Vital Signs Temp Pulse Resp BP Pulse Ox 98.8 F 90 18 137/69 97 12/21/17 14:00 12/21/17 14:00 12/21/17 14:00 12/21/17 14:00 12/21/17 09:00 CBC, BMP 12/21/17 07:34 12/21/17 07:34 Current Medications Generic Name Dose Route Start Last Admin Trade Name Freq PRN Reason Stop Dose Admin Folic Acid 1 mg 12/14/17 10:00 12/21/17 10:15 Folic Acid - PO 1 mg DAILY [facility] Administration Lactulose 20 gm 12/17/17 14:00 12/21/17 13:22 Cephulac (Oral Use) PO 20 gm TID [facility] Administration Levothyroxine Sodium 100 mcg 12/14/17 07:00 12/21/17 06:50 Synthroid - PO 100 mcg DAILY@0700 [facility] Administration Magnesium Oxide 400 mg 12/13/17 22:00 12/21/17 10:15 Mag-Ox - PO 400 mg BID [facility] Administration Melatonin 1 mg 12/20/17 21:02 12/20/17 22:58 Melatonin PO 1 mg HS PRN Administration INSOMNIA Pantoprazole Sodium 40 mg 12/13/17 22:00 12/21/17 10:15 Protonix - PO 40 mg BID [facility] Administration Potassium Phos/Sodium Phos 1 packet 12/16/17 14:00 12/21/17 13:22 Phos-Nak Packet - PO 1 packet TID [facility] Administration Multivit/Folic Acid/Iron 1 tab 12/14/17 10:00 12/21/17 10:15 Vitamins (Sjr) - PO 1 tab DAILY [facility] Administration Thiamine HCl 100 mg 12/13/17 22:00 12/20/17 22:58 Vitamin B1 - PO 100 mg HS [facility] Administration 57 y/o female with PMHx of anemia, GI bleeding, alcoholic cirrhosis, admitted with multiple hematomas, s/p fall and pancytopenia cirrhosis splenomegaly acute alcohol BM suppression chronic alcoholic. Hepatic encephalopathy Coagulopathy. CBC -- stable now Supportive care Transfusion: platelets <90895 , prbcs if <7.0. unless bleeding.
[2017-12-21] MEDS: THIAMINE HCL 100 MG TABLET (FP) PO SCH (22:56)
[2017-12-21] MEDS: MELATONIN 1 MG TABLET PO PRN (22:57)
[2017-12-22 06:32] LABS: BASO % 0.9 % (0-2.0); EOS % 2.7 % (0-4.5); HEMATOCRIT 24.9 % (32.4-45.2); HEMOGLOBIN 8.6 GM/dL (10.7-15.3); LYMPH % 33.5 % (8-40); MCH 35.5 pg (25.7-33.7); MCHC 34.4 g/dl (32.0-36.0); MEAN CELL VOLUME 103.3 fl (80-96); MEAN PLT VOLUME 9.8 fl (7.5-11.1); MONO % 13.1 % (3.8-10.2); NEUT % 49.8 % (42.8-82.8); PLATELET COUNT 57 K/MM3 (134-434); RBC 2.41 M/mm3 (3.60-5.2); RDW 19.6 % (11.6-15.6); WHITE BLOOD COUNT 4.1 K/mm3 (4.0-10.0)
[2017-12-22] MEDS: LACTULOSE 20 GM/30 ML UDC (FOR ORAL USE ONLY) PO SCH ×3 (06:32→21:36)
[2017-12-22] MEDS: NAPH,MB-DB/K PH,MBDB POWDER PACKET PO SCH ×3 (06:32→21:37)
[2017-12-22] MEDS: LEVOTHYROXINE NA 100 MCG TABLET (FP) PO SCH (06:32)
[2017-12-22 07:18] LABS: CHLORIDE 102 mmol/L (98-107); POTASSIUM 3.4 mmol/L (3.5-5.1); SODIUM 136 mmol/L (136-145)
[2017-12-22 07:34] LABS: ANION GAP 8 (8-16); BLOOD UREA NITROGEN 8 mg/dL (7-18); CALCIUM 8.5 mg/dL (8.5-10.1); CO2 26 mmol/L (21-32); CREATININE 1.1 mg/dL (0.55-1.02); GLUCOSE,RANDOM 185 mg/dL (74-106)
[2017-12-22] MEDS ORDERED: PT OWN MED DRAWER 7, Y5N ONE ×2 (09:03→21:13)
[2017-12-22] MEDS: PRENATAL VITAMINS W/ FOLIC ACID TABLET (FP) PO SCH (09:21)
[2017-12-22] MEDS: FOLIC ACID 1 MG TABLET (FP) PO SCH (09:21)
[2017-12-22] MEDS: MAGNESIUM OXIDE 400 MG TABLET (FP) PO SCH ×2 (09:22→21:36)
[2017-12-22] MEDS: PANTOPRAZOLE 40 MG TABLET (FP) PO SCH ×2 (09:22→21:36)
[2017-12-22] MEDS ORDERED: POTASSIUM CHLORIDE 20 MEQ PREMIX IVPB 100 ML IVPB ONE (12:36)
--- NOTE | 2017-12-22 12:38 | PN ---
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 Did begin drinking alcohol again, present with a fall with chin laceration, Rt post chest wall hematoma in the setting of ETOH intoxication. - Current Medication List Current Medications: Active Medications Folic Acid (Folic Acid -) 1 mg PO DAILY [facility] Last Admin: 12/22/17 09:21 Dose: 1 mg Lactulose (Cephulac (Oral Use)) 20 gm PO TID [facility] Last Admin: 12/22/17 06:32 Dose: 20 gm Levothyroxine Sodium (Synthroid -) 100 mcg PO DAILY@0700 [facility] Last Admin: 12/22/17 06:32 Dose: 100 mcg Magnesium Oxide (Mag-Ox -) 400 mg PO BID [facility] Last Admin: 12/22/17 09:22 Dose: 400 mg Melatonin (Melatonin) 1 mg PO HS PRN PRN Reason: INSOMNIA Last Admin: 12/21/17 22:57 Dose: 1 mg Pantoprazole Sodium (Protonix -) 40 mg PO BID [facility] Last Admin: 12/22/17 09:22 Dose: 40 mg Potassium Chloride (Potassium Chloride 20 Meq Premix Ivpb -) 20 meq IVPB ONCE ONE Stop: 12/22/17 12:37 Potassium Phos/Sodium Phos (Phos-Nak Packet -) 1 packet PO TID [facility] Last Admin: 12/22/17 06:32 Dose: 1 packet Multivit/Folic Acid/Iron ( Vitamins (Sjr) -) 1 tab PO DAILY [facility] Last Admin: 12/22/17 09:21 Dose: 1 tab Thiamine HCl (Vitamin B1 -) 100 mg PO HS [facility] Last Admin: 12/21/17 22:56 Dose: 100 mg - Objective Vital Signs: Vital Signs Temperature 98.4 F 12/22/17 06:00 Pulse Rate 91 H 12/22/17 06:00 Respiratory Rate 20 12/22/17 08:42 Blood Pressure 108/60 12/22/17 06:00 O2 Sat by Pulse Oximetry (%) 97 12/22/17 08:42 HEENT; Mm moist, anemia, contusion with lacerated wound on chin NECK; Supple, no JVd , No Bruit, no Thyromegaly CHEST: Large hematoma, Rt Post chest wall, Rt sided reps, minimal basal Crepts CVS: S1S2 R, no m/g/r ABD: Mild distention, non tender, enlarged spleen.. EXT: No edema feet, pulses + TEST DESIGNER: AOx3, non focal, no tremors on outstretched hands Labs: CBC, BMP 12/22/17 06:00 12/22/17 06:00 INR, PTT INR 1.51 (0.82-1.09) H D 12/18/17 05:35 Fibrinogen 219.0 mg/dL (238-498) L D 12/17/17 06:20 Problem List - Problems (1) Hematoma Assessment/Plan: Chest Wall hematoma due to trauma, in the setting of thrombocytopenia, incentive spectrometry. Code(s): T14.8XXA - OTHER INJURY OF UNSPECIFIED BODY REGION, INITIAL ENCOUNTER (2) Acute alcohol intoxication Assessment/Plan: Resplve3 no hallucinations or illusions, off Librium cont B complex, thiamine and folic acid,. Code(s): F10.929 - ALCOHOL USE, UNSPECIFIED WITH INTOXICATION, UNSPECIFIED Qualifiers: Complication of substance-induced condition: uncomplicated Qualified Code(s ): F10.929 - Alcohol use, unspecified with intoxication, unspecified (3) Alcoholic cirrhosis of liver Assessment/Plan: Advance Hepatic ETOH induced cirrhosis, agreeing for detox Code(s): K70.30 - ALCOHOLIC CIRRHOSIS OF LIVER WITHOUT ASCITES Qualifiers: Ascites presence: with ascites Qualified Code(s): K70.31 - Alcoholic cirrhosis of liver with ascites (4) Hepatic encephalopathy Assessment/Plan: Resolving cont Lactulose Code(s): K72.90 - HEPATIC FAILURE, UNSPECIFIED WITHOUT COMA (5) Hypothyroid Assessment/Plan: cont Levothyroxine Code(s): E03.9 - HYPOTHYROIDISM, UNSPECIFIED Qualifiers: (6) Anemia Assessment/Plan: Chronic H/H stable, multi-factorial Code(s): D64.9 - ANEMIA, UNSPECIFIED (7) Decreased platelet count Assessment/Plan: Stable after platelet transfusion f/u Hematology recommendations. Code(s): D69.6 - THROMBOCYTOPENIA, UNSPECIFIED (8) Chest wall pain Assessment/Plan: Due to mematoma may be atelactasis insentive spirometry, CXR Code(s): R07.89 - OTHER CHEST PAIN
[2017-12-22] MEDS: ARTIFICIAL TEARS (POLYVINYL ALCOHOL 1.4%) OPTH DROPS OU SCH ×2 (14:29→21:39)
[2017-12-22] MEDS: POTASSIUM CHLORIDE 10 MEQ in SODIUM CHLORIDE 100 ML IVPB SCH ×2 (14:31→15:35)
[2017-12-22] MEDS ORDERED: IBUPROFEN 200 MG TABLET PO ONE (14:45)
[2017-12-22] MEDS: THIAMINE HCL 100 MG TABLET (FP) PO SCH (21:36)
[2017-12-23] MEDS: LACTULOSE 20 GM/30 ML UDC (FOR ORAL USE ONLY) PO SCH ×2 (06:08→13:48)
[2017-12-23] MEDS: NAPH,MB-DB/K PH,MBDB POWDER PACKET PO SCH ×2 (06:08→13:46)
[2017-12-23] MEDS: LEVOTHYROXINE NA 100 MCG TABLET (FP) PO SCH (06:08)
[2017-12-23 07:47] LABS: BASO % 1.1 % (0-2.0); EOS % 2.7 % (0-4.5); HEMATOCRIT 24.3 % (32.4-45.2); HEMOGLOBIN 8.2 GM/dL (10.7-15.3); LYMPH % 31.9 % (8-40); MCH 35.2 pg (25.7-33.7); MCHC 33.8 g/dl (32.0-36.0); MEAN CELL VOLUME 104.3 fl (80-96); MONO % 13.5 % (3.8-10.2); NEUT % 50.8 % (42.8-82.8); PLATELET COUNT 58 K/MM3 (134-434); RBC 2.33 M/mm3 (3.60-5.2); RDW 19.6 % (11.6-15.6); WHITE BLOOD COUNT 3.7 K/mm3 (4.0-10.0)
[2017-12-23 08:20] LABS: ANION GAP 7 (8-16); BLOOD UREA NITROGEN 9 mg/dL (7-18); CALCIUM 8.5 mg/dL (8.5-10.1); CHLORIDE 105 mmol/L (98-107); CO2 28 mmol/L (21-32); CREATININE 1.1 mg/dL (0.55-1.02); GLUCOSE,RANDOM 186 mg/dL (74-106); POTASSIUM 3.7 mmol/L (3.5-5.1); SODIUM 140 mmol/L (136-145)
[2017-12-23] MEDS ORDERED: PT OWN MED DRAWER 7, Y5N ONE (08:58)
[2017-12-23] MEDS: ARTIFICIAL TEARS (POLYVINYL ALCOHOL 1.4%) OPTH DROPS OU SCH (09:51)
[2017-12-23] MEDS: PRENATAL VITAMINS W/ FOLIC ACID TABLET (FP) PO SCH (09:52)
[2017-12-23] MEDS: PANTOPRAZOLE 40 MG TABLET (FP) PO SCH (09:52)
[2017-12-23] MEDS: FOLIC ACID 1 MG TABLET (FP) PO SCH (09:52)
[2017-12-23] MEDS: MAGNESIUM OXIDE 400 MG TABLET (FP) PO SCH (09:53)
--- NOTE | 2017-12-23 13:11 | DS ---
Physical Examination Vital Signs: Vital Signs Temperature 36.8 C 12/23/17 10:00 Pulse Rate 94 H 12/23/17 10:00 Respiratory Rate 20 12/23/17 10:00 Blood Pressure 138/72 12/23/17 10:00 O2 Sat by Pulse Oximetry (%) 98 12/23/17 08:52 Constitutional: Yes: Well Nourished, No Distress, Calm Cardiovascular: Yes: Regular Rate and Rhythm. No: Gallop, Murmur, Rub Respiratory: Yes: Regular, CTA Bilaterally. No: Rales, Rhonchi, Wheezes Gastrointestinal: Yes: Normal Bowel Sounds, Soft. No: Distention, Tenderness Extremities: Yes: WNL Edema: No Labs: CBC, BMP 12/23/17 06:00 12/23/17 06:00 Discharge Summary Reason For Visit: CONTUSION OF LUNG Current Active Problems Anemia (Acute) Chest wall pain (Acute) Hematoma (Acute) Hospital Course: (1) Hematoma Code(s): T14.8XXA - OTHER INJURY OF UNSPECIFIED BODY REGION, INITIAL ENCOUNTER (2) Acute alcohol intoxication Code(s): F10.929 - ALCOHOL USE, UNSPECIFIED WITH INTOXICATION, UNSPECIFIED Qualifiers: Complication of substance-induced condition: uncomplicated Qualified Code(s ): F10.929 - Alcohol use, unspecified with intoxication, unspecified (3) Alcoholic cirrhosis of liver Code(s): K70.30 - ALCOHOLIC CIRRHOSIS OF LIVER WITHOUT ASCITES Qualifiers: Ascites presence: with ascites Qualified Code(s): K70.31 - Alcoholic cirrhosis of liver with ascites (4) Hepatic encephalopathy Code(s): K72.90 - HEPATIC FAILURE, UNSPECIFIED WITHOUT COMA (5) Thrombocytopenia concurrent with and due to alcoholism Code(s): D69.59 - OTHER SECONDARY THROMBOCYTOPENIA; F10.20 - ALCOHOL DEPENDENCE , UNCOMPLICATED (6) Alcohol dependence with uncomplicated withdrawal Code(s): F10.230 - ALCOHOL DEPENDENCE WITH WITHDRAWAL, UNCOMPLICATED (7) Hypothyroid Code(s): E03.9 - HYPOTHYROIDISM, UNSPECIFIED Qualifiers: Ms Andino is a 57 year old female who comes in with hematoma secondary to falls from acute alcohol intoxication and hepatic encephalopathy. She was admitted to the hospital and found to have severe thrombocytopenia and mild anemia. She was seen by hematology and this is secondary to her alcohol abuse/addiction. She did not require transfusion and this improved. She was started on a librium taper which she tolerated without complication. However she was still lethargic and unsteady, her ammonia was checked and it was elevated to 109. Her lactulose was increased to tid and she improved. She is currently stable for discharge to SNF. 37 minutes spent in preparation of this discharge Condition: Stable - Instructions Diet, Activity, Other Instructions: low sodium diet. up with assistance, further activity per PT at SNF. Referrals: Wilmar Jeong MD [Primary Care Provider] - Disposition: CUSTODIAL FACILITY - Home Medications Comprehensive Discharge Medication List: Ambulatory Orders Folic Acid 1 mg PO DAILY #30 tablet 11/27/17 Levothyroxine [Synthroid -] 100 mcg PO DAILY@0700 #30 tablet 11/27/17 Magnesium Oxide [Mag-Ox -] 400 mg PO BID #60 tablet 11/27/17 Pantoprazole Sodium [Protonix -] 40 mg PO BID #60 tablet.ec 11/27/17 Thiamine HCl [Vitamin B1 -] 100 mg PO HS #30 tablet 11/27/17 Lactulose (Oral Use) [Cephulac -] 20 gm PO TID [facility] 12/23/17 Vitamins (Sjr) - 1 tab PO DAILY tablet 12/23/17
[2017-12-23 15:48] VITALS: BP 130/71; PULSE 93; TEMP 97.8
== END 2017-12-23 17:40 | DRG 661 ==
LOC: JER 03:40 → JERBED 12:41 → J6S 17:30 → J4S 21:21
PROVIDERS: ADMIT Specialist; ATTEND Specialist
PROC: HZ2ZZZZ Detoxification Services for Substance Abuse Treatment (ICD-10-PCS; 2017-12-13)
PROC: 30233R1 Transfusion of Nonautologous Platelets into Peripheral Vein, Percutaneous Approach (ICD-10-PCS; principal; 2017-12-18)
DX: D69.6 Thrombocytopenia, unspecified (principal); S27.329A Contusion of lung, unspecified, initial encounter; W19.XXXA Unspecified fall, initial encounter; Y93.9 Activity, unspecified; Y92.89 Other specified places as the place of occurrence of the external cause; Y99.9 Unspecified external cause status; R26.9 Unspecified abnormalities of gait and mobility; K72.90 Hepatic failure, unspecified without coma; E03.9 Hypothyroidism, unspecified; F10.230 Alcohol dependence with withdrawal, uncomplicated; D64.9 Anemia, unspecified; K70.30 Alcoholic cirrhosis of liver without ascites; R07.89 Other chest pain; D68.9 Coagulation defect, unspecified; J98.11 Atelectasis; R16.1 Splenomegaly, not elsewhere classified; D61.818 Other pancytopenia; E87.6 Hypokalemia; E83.42 Hypomagnesemia; K21.9 Gastro-esophageal reflux disease without esophagitis; T14.8XXA Other injury of unspecified body region, initial encounter
CPT/HCPCS: 36415; 36430; 70450-TC; 70486-TC; 71045-TC-FY; 71046-TC-FY; 71260-TC; 72125-TC; 74177-TC; 80048; 80053; 80307; 81003; 81015; 82140; 82525; 82607; 82728; 82746; 83540; 83550; 83735; 84100; 84466; 85025; 85384; 85610; 85730; 86850; 86900; 86901; 93005; 93010; 94010; 97116-GP; 97162-GP; 99283-25; J7030; P9034; P9038

== ENCOUNTER 2018-05-11 15:16 | Inpatient (IN) | payer OTHER ==
[2018-05-11] MEDS ORDERED: SODIUM CHLORIDE 0.9% 1000 ML INFUS.BAG IV ONE (16:38)
[2018-05-11 16:50] LABS: BASO % 1.2 % (0-2.0); EOS % 0.9 % (0-4.5); HEMATOCRIT 33.5 % (32.4-45.2); HEMOGLOBIN 11.1 GM/dL (10.7-15.3); LYMPH % 3.9 % (8-40); MCH 37.3 pg (25.7-33.7); MCHC 33.2 g/dl (32.0-36.0); MEAN CELL VOLUME 112.4 fl (80-96); MEAN PLT VOLUME 8.3 fl (7.5-11.1); MONO % 2.8 % (3.8-10.2); NEUT % 91.2 % (42.8-82.8); PLATELET COUNT 77 K/MM3 (134-434); RBC 2.98 M/mm3 (3.60-5.2); RDW 14.4 % (11.6-15.6); WHITE BLOOD COUNT 15.3 K/mm3 (4.0-10.0)
[2018-05-11] MEDS ORDERED: SODIUM CHLORIDE 1,000 ML IV STA (16:52)
[2018-05-11 17:27] LABS: INR 1.39 (0.83-1.09); PROTHROMBIN TIME (PATIENT) 16.4 SEC (9.7-13.0)
[2018-05-11] MEDS ORDERED: DEXTROSE 50%-WATER - 25 GM/50 ML VIAL IVPUSH ONE ×2 (17:37→21:55)
[2018-05-11] MEDS ORDERED: DEXTROSE 50%-WATER 25 GM/50 ML DISP.SYRIN ONE ×2 (17:39→23:22)
[2018-05-11 17:47] LABS: ALK PHOS 192 U/L (45-117); ANION GAP 32 MMOL/L (8-16); BLOOD UREA NITROGEN 41 mg/dL (7-18); CALCIUM 8.1 mg/dL (8.5-10.1); CHLORIDE 95 mmol/L (98-107); CO2 8 mmol/L (21-32); CREATININE 3.3 mg/dL (0.55-1.3); GLUCOSE,RANDOM 68 mg/dL (74-106); LIPASE 701 U/L (73-393); SGOT/AST 280 U/L (15-37); SGPT/ALT 82 U/L (13-61); SODIUM 135 mmol/L (136-145); TOT PROT 7.7 g/dl (6.4-8.2)
--- NOTE | 2018-05-11 17:54 | PDOC ---
History of Present Illness - General Chief Complaint: Alcohol intoxication Stated Complaint: Alcohol intoxication Time Seen by Provider: 05/11/18 16:13 History Source: Patient, Significant Other Exam Limitations: Clinical Condition - History of Present Illness Initial Comments: 05/11/18 17:53 This is a 57 YOF with h/o heavy EtOH use, EtOH cirrhosis, polysubstance abuse ( unclear at the time of presentation whether this is current or only in the past) , and hypothyroidism who p/w altered mental status noted by her , and multiple falls in the the past few days with large bruises to her left chest wall, legs, and back. The additionally notes that she was vomiting what appeared to be blood this afternoon. The states she has had nothing to eat since , but has been drinking more EtOH than normal (binging over the past few days). The patient cannot provide any of her medical history or symptoms (other than stating she is in pain but cannot say where) because of altered mental status. Past History - Past Medical History Allergies/Adverse Reactions: Allergies Allergy/AdvReac Type Severity Reaction Status Date / Time lamotrigine [From Lamictal] Allergy Verified 03/17/18 11:16 lorazepam [From Ativan] Allergy Rash Verified 03/17/18 11:16 Home Medications: Ambulatory Orders Folic Acid 1 mg PO DAILY #30 tablet 11/27/17 Levothyroxine [Synthroid -] 100 mcg PO DAILY@0700 #30 tablet 11/27/17 Magnesium Oxide [Mag-Ox -] 400 mg PO BID #60 tablet 11/27/17 Thiamine HCl [Vitamin B1 -] 100 mg PO HS #30 tablet 11/27/17 Lactulose (Oral Use) [Cephulac -] 20 gm PO TID udc 12/23/17 Vitamins (Sjr) - 1 tab PO DAILY tablet 12/23/17 Pantoprazole Sodium [Protonix -] 40 mg PO DAILY 05/11/18 Anemia: No Asthma: No Cancer: No Cardiac Disorders: No CVA: No COPD: No CHF: No Dementia: No Diabetes: No GI Disorders: Yes (ACID REFLUX) Disorders: No HTN: No Hypercholesterolemia: No Kidney Stones: No Liver Disease: Yes (Cirrhosis) Seizures: No Thyroid Disease: Yes (HYPOTHYROID DISEASE) - Surgical History Abdominal Surgery: No Appendectomy: No Cardiac Surgery: No Cholecystectomy: No Lung Surgery: No Neurologic Surgery: No Orthopedic Surgery: Yes (L ankle 12/08) - Reproductive History PID: No - Suicide/Smoking/Psychosocial Hx Smoking Status: No Smoking History: Never smoked Have you smoked in the past 12 months: No Number of Cigarettes Smoked Daily: 0 Information on smoking cessation initiated: No Hx Alcohol Use: Yes Drug/Substance Use Hx: No Substance Use Type: Alcohol, Cocaine Hx Substance Use Treatment: Yes ([facility] in past, now outpatient) Trauma Specific PMHX - Complaint Specific PMHX Arthritis: No Back Injury: No Neck Injury: No Hx Sacro Iliac Joint Dysfunction: No Review of Systems - Review of Systems Able to Perform ROS?: No (altered) *Physical Exam - Vital Signs Last Vital Signs Temp Pulse Resp BP Pulse Ox 97.7 F 113 H 22 H 74/34 L 99 05/11/18 15:48 05/11/18 17:06 05/11/18 17:06 05/11/18 17:06 05/11/18 17:06 Procedures - Central Line Central Line Lumen: triple Central Line Position: internal jugular (R) Anesthesia: 1% Lidocaine Amount of anesthesia (ccs): 3 Complications: none Post Central Line Insertion: sutured, good blood return, position confirmed w/ CXR Progress: patient became very agitated and uncooperative in the middle of the procedure, but called in ED staff to help, procedure completed without complication ED Treatment Course - LABORATORY CBC & Chemistry Diagram: 05/13/18 18:00 05/13/18 05:30 - ADDITIONAL ORDERS Additional order review: Laboratory Results 05/11/18 05/11/18 05/11/18 17:36 16:52 16:47 PT with INR 16.40 H INR 1.39 H Sodium Chloride Carbon Dioxide Anion Gap BUN Creatinine Creat Clearance w eGFR POC Glucometer 67.40953 Random Glucose Calcium Total Bilirubin AST ALT Alkaline Phosphatase Ammonia Creatine Kinase Troponin I Total Protein Albumin Lipase Stool Occult Blood Negative 05/11/18 05/11/18 16:35 16:35 PT with INR INR Sodium 135 L Chloride 95 L Carbon Dioxide 8 L Anion Gap 32 H BUN 41 H Creatinine 3.3 H Creat Clearance w eGFR 14.51 POC Glucometer Random Glucose 68 L Calcium 8.1 L Total Bilirubin 10.0 H AST 280 H ALT 82 H Alkaline Phosphatase 192 H Ammonia 497.20 H Creatine Kinase 145 Troponin I < 0.02 Total Protein 7.7 Albumin 3.0 L Lipase 701 H Stool Occult Blood 05/11/18 05/11/18 17:36 16:35 RBC 2.98 L MCV 112.4 H D MCHC 33.2 RDW 14.4 D MPV 8.3 Neutrophils % 91.2 H D Lymphocytes % 3.9 L D Monocytes % 2.8 L Eosinophils % 0.9 Basophils % 1.2 POC Glucometer 67.59128 - Medications Given in the ED: ED Medications Discontinued Medications Generic Name Dose Route Start Last Admin Trade Name Freq PRN Reason Stop Dose Admin Sodium Chloride 1,000 ml 05/11/18 16:38 05/11/18 16:45 Normal Saline - IV 05/11/18 16:39 1,000 ml ONCE ONE Administration Medical Decision Making - Critical Care Time Total Critical Care Time (minutes): 180 Critical Care Statement: The care of this patient involved high complexity decision making to prevent further life threatening deterioration of the patient 's condition and/or to evaluate & treat vital organ system(s) failure or risk of failure. - Medical Decision Making 05/11/18 19:01 Pt p/w UGIB, tachycardia, hypotension, hyperkalemia, AMS Initial Vital Signs Temp Pulse Resp BP Pulse Ox 97.7 F 123 H 20 72/44 L 94 L 05/11/18 15:48 05/11/18 15:48 05/11/18 15:48 05/11/18 15:48 05/11/18 15:48 Exam: As noted in Physical Exam section. DDX IBNLT: alcoholic ketoacidosis, starvation ketosis, wernicke encephalopathy/ Korsakoff syndrome, hepatic encephalopathy, UGIB causing hyperammonemia and AMS , rhabdo or crush injury with ARF, overdose of medications or drugs, toxic ingestion of alcohol (e.g. methanol, etc), toxic ingestion of other substance such as ethylene glycol, sepsis/infection such as cholangitis (though patient has no ttp). W/U ordered: EKG CXR HCT Labs as noted below TX ordered: Calcium gluconate, banana bag, IVF, D50 EKG: Reviewed; results as noted in ECG Review section. CXR: HCT: No acute ICH, fracture, or other acute intracranial abnormality Vital Signs - 24 hr 05/11/18 05/11/18 05/11/18 15:48 16:25 17:06 Temperature 97.7 F Pulse Rate 123 H Pulse Rate [ 94 H 113 H Right Radial] Respiratory 20 25 H 22 H Rate Blood Pressure 72/44 L Blood Pressure 85/39 L 74/34 L [Left Arm] O2 Sat by Pulse 94 L 99 99 Oximetry (%) 05/11/18 05/11/18 05/11/18 17:30 17:50 18:03 Temperature Pulse Rate Pulse Rate [ 150 H 97 H 107 H Right Radial] Respiratory 26 H 24 H 22 H Rate Blood Pressure Blood Pressure 84/39 L 96/41 L 103/48 L [Left Arm] O2 Sat by Pulse 99 99 99 Oximetry (%) 05/11/18 05/11/18 18:23 18:30 Temperature Pulse Rate Pulse Rate [ 95 H 96 H Right Radial] Respiratory 20 22 H Rate Blood Pressure Blood Pressure 100/45 L 111/39 L [Left Arm] O2 Sat by Pulse 99 99 Oximetry (%) Laboratory Tests 05/11/18 05/11/18 05/11/18 16:35 16:35 16:35 WBC 15.3 H RBC 2.98 L Hgb 11.1 Hct 33.5 MCV 112.4 H D MCH 37.3 H MCHC 33.2 RDW 14.4 D Plt Count 77 L D MPV 8.3 Absolute Neuts (auto) 14.0 H Neutrophils % 91.2 H D Neutrophils % (Manual) 59.0 Band Neutrophils % 21.0 Lymphocytes % 3.9 L D Lymphocytes % (Manual) 9.0 D Monocytes % 2.8 L Monocytes % (Manual) 3 L Eosinophils % 0.9 Eosinophils % (Manual) 0.0 D Basophils % 1.2 Basophils % (Manual) 0.0 Nucleated RBC % 1 H Metamyelocytes 8 H D Platelet Estimate Decreased Platelet Comment No clumping noted Macrocytosis 2+ PT with INR INR Sodium 135 L Potassium 6.5 H* Chloride 95 L Carbon Dioxide 8 L Anion Gap 32 H BUN 41 H Creatinine 3.3 H Creat Clearance w eGFR 14.51 POC Glucometer Random Glucose 68 L Calcium 8.1 L Total Bilirubin 10.0 H AST 280 H ALT 82 H Alkaline Phosphatase 192 H Ammonia 497.20 H Creatine Kinase 145 Troponin I < 0.02 Total Protein 7.7 Albumin 3.0 L Lipase 701 H Urine Color Urine Appearance Urine pH Ur Specific [place] Urine Protein Urine Glucose (UA) Urine Ketones Urine Blood Urine Nitrite Urine Bilirubin Urine Urobilinogen Ur Leukocyte Esterase Urine WBC (Auto) Urine RBC (Auto) Ur Epithelial Cells Amorphous Urates Urine Bacteria Stool Occult Blood 05/11/18 05/11/18 05/11/18 16:47 16:52 17:36 WBC RBC Hgb Hct MCV MCH MCHC RDW Plt Count MPV Absolute Neuts (auto) Neutrophils % Neutrophils % (Manual) Band Neutrophils % Lymphocytes % Lymphocytes % (Manual) Monocytes % Monocytes % (Manual) Eosinophils % Eosinophils % (Manual) Basophils % Basophils % (Manual) Nucleated RBC % Metamyelocytes Platelet Estimate Platelet Comment Macrocytosis PT with INR 16.40 H INR 1.39 H Sodium Potassium Chloride Carbon Dioxide Anion Gap BUN Creatinine Creat Clearance w eGFR POC Glucometer 67.56667 Random Glucose Calcium Total Bilirubin AST ALT Alkaline Phosphatase Ammonia Creatine Kinase Troponin I Total Protein Albumin Lipase Urine Color Urine Appearance Urine pH Ur Specific [place] Urine Protein Urine Glucose (UA) Urine Ketones Urine Blood Urine Nitrite Urine Bilirubin Urine Urobilinogen Ur Leukocyte Esterase Urine WBC (Auto) Urine RBC (Auto) Ur Epithelial Cells Amorphous Urates Urine Bacteria Stool Occult Blood Negative 05/11/18 18:51 WBC RBC Hgb Hct MCV MCH MCHC RDW Plt Count MPV Absolute Neuts (auto) Neutrophils % Neutrophils % (Manual) Band Neutrophils % Lymphocytes % Lymphocytes % (Manual) Monocytes % Monocytes % (Manual) Eosinophils % Eosinophils % (Manual) Basophils % Basophils % (Manual) Nucleated RBC % Metamyelocytes Platelet Estimate Platelet Comment Macrocytosis PT with INR INR Sodium Potassium Chloride Carbon Dioxide Anion Gap BUN Creatinine Creat Clearance w eGFR POC Glucometer Random Glucose Calcium Total Bilirubin AST ALT Alkaline Phosphatase Ammonia Creatine Kinase Troponin I Total Protein Albumin Lipase Urine Color Miladis Urine Appearance Cloudy Urine pH 5.0 Ur Specific [place] 1.009 L Urine Protein 1+ H Urine Glucose (UA) Negative Urine Ketones Negative Urine Blood 1+ H Urine Nitrite Negative Urine Bilirubin Negative Urine Urobilinogen 4.0 e.u/dl H Ur Leukocyte Esterase Trace Urine WBC (Auto) 2 Urine RBC (Auto) 1 Ur Epithelial Cells Few Amorphous Urates 1+ Urine Bacteria Rare Stool Occult Blood Reassessment: Patient remains altered, FSBG re-checked. Vital Signs Temperature 97.7 F 05/11/18 15:48 Pulse Rate 96 H 05/11/18 18:30 Respiratory Rate 22 H 05/11/18 18:30 Blood Pressure 111/39 L 05/11/18 18:30 O2 Sat by Pulse Oximetry (%) 99 05/11/18 18:30 I spoke with Radha in the ICU; the unit has one bed. We will repeat labs, get lactate, re-assess volume status and BP to determine if need for ICU. I placed orders for repeat labs. Reassessment: Nontender on exam but slightly more agitated. Dr. Arboleda has spoken with Dr. Barcenas who has medication recommendations she has ordered. We are needing to select medications carefully as the patient's QTc is prolonged >500 ms. 05/11/18 05/11/18 05/11/18 17:36 18:51 18:51 WBC RBC Hgb Hct MCV MCH MCHC RDW Plt Count MPV Absolute Neuts (auto) Neutrophils % Neutrophils % (Manual) Band Neutrophils % Lymphocytes % Lymphocytes % (Manual) Monocytes % Monocytes % (Manual) Eosinophils % Eosinophils % (Manual) Basophils % Basophils % (Manual) Nucleated RBC % Metamyelocytes Platelet Estimate Platelet Comment Macrocytosis PT with INR INR Sodium Potassium Chloride Carbon Dioxide Anion Gap BUN Creatinine Creat Clearance w eGFR POC Glucometer 67.00896 Random Glucose Lactic Acid Calcium Total Bilirubin AST ALT Alkaline Phosphatase Ammonia Creatine Kinase CK-MB (CK-2) Troponin I Total Protein Albumin Lipase Urine Color Miladis Urine Appearance Cloudy Urine pH 5.0 Ur Specific [place] 1.009 L Urine Protein 1+ H Urine Glucose (UA) Negative Urine Ketones Negative Urine Blood 1+ H Urine Nitrite Negative Urine Bilirubin Negative Urine Urobilinogen 4.0 e.u/dl H Ur Leukocyte Esterase Trace Urine WBC (Auto) 2 Urine RBC (Auto) 1 Ur Epithelial Cells Few Amorphous Urates 1+ Urine Bacteria Rare Stool Occult Blood Opiates Screen Negative Methadone Screen Negative Barbiturate Screen Negative Phencyclidine Screen Negative Ur Amphetamines Screen Negative MDMA (Ecstasy) Screen Negative Benzodiazepines Screen Negative Cocaine Screen Negative U Marijuana (THC) Screen Negative Anti-A Titer Blood Type Antibody Screen 05/11/18 05/11/18 05/11/18 20:30 20:30 20:30 WBC 13.2 H RBC 2.59 L Hgb 9.6 L Hct 29.7 L MCV 114.4 H MCH 37.1 H MCHC 32.5 RDW 14.4 Plt Count 53 L D MPV 8.7 Absolute Neuts (auto) 11.7 H Neutrophils % 88.7 H Neutrophils % (Manual) Band Neutrophils % Lymphocytes % 6.1 L D Lymphocytes % (Manual) Monocytes % 3.3 L Monocytes % (Manual) Eosinophils % 1.6 Eosinophils % (Manual) Basophils % 0.3 Basophils % (Manual) Nucleated RBC % 0 Metamyelocytes Platelet Estimate Platelet Comment Macrocytosis PT with INR INR Sodium 139 Potassium 6.1 H* Chloride 104 Carbon Dioxide 7 L Anion Gap 28 H BUN 41 H Creatinine 3.3 H Creat Clearance w eGFR 14.51 POC Glucometer Random Glucose 88 Lactic Acid Calcium 6.9 L* Total Bilirubin 8.8 H AST 1203 H ALT 366 H Alkaline Phosphatase 166 H Ammonia Creatine Kinase 249 H CK-MB (CK-2) 7.2 H Troponin I Total Protein 6.3 L Albumin 2.6 L Lipase Urine Color Urine Appearance Urine pH Ur Specific [place] Urine Protein Urine Glucose (UA) Urine Ketones Urine Blood Urine Nitrite Urine Bilirubin Urine Urobilinogen Ur Leukocyte Esterase Urine WBC (Auto) Urine RBC (Auto) Ur Epithelial Cells Amorphous Urates Urine Bacteria Stool Occult Blood Opiates Screen Methadone Screen Barbiturate Screen Phencyclidine Screen Ur Amphetamines Screen MDMA (Ecstasy) Screen Benzodiazepines Screen Cocaine Screen U Marijuana (THC) Screen Anti-A Titer Cancelled Blood Type Cancelled Antibody Screen Cancelled 05/11/18 20:40 WBC RBC Hgb Hct MCV MCH MCHC RDW Plt Count MPV Absolute Neuts (auto) Neutrophils % Neutrophils % (Manual) Band Neutrophils % Lymphocytes % Lymphocytes % (Manual) Monocytes % Monocytes % (Manual) Eosinophils % Eosinophils % (Manual) Basophils % Basophils % (Manual) Nucleated RBC % Metamyelocytes Platelet Estimate Platelet Comment Macrocytosis PT with INR INR Sodium Potassium Chloride Carbon Dioxide Anion Gap BUN Creatinine Creat Clearance w eGFR POC Glucometer Random Glucose Lactic Acid 13.6 H* Calcium Total Bilirubin AST ALT Alkaline Phosphatase Ammonia Creatine Kinase CK-MB (CK-2) Troponin I Total Protein Albumin Lipase Urine Color Urine Appearance Urine pH Ur Specific [place] Urine Protein Urine Glucose (UA) Urine Ketones Urine Blood Urine Nitrite Urine Bilirubin Urine Urobilinogen Ur Leukocyte Esterase Urine WBC (Auto) Urine RBC (Auto) Ur Epithelial Cells Amorphous Urates Urine Bacteria Stool Occult Blood Opiates Screen Methadone Screen Barbiturate Screen Phencyclidine Screen Ur Amphetamines Screen MDMA (Ecstasy) Screen Benzodiazepines Screen Cocaine Screen U Marijuana (THC) Screen Anti-A Titer Blood Type Antibody Screen LFTs remarkably higher than first values. Lactate >13. Orders placed for repeat labs to confirm elevations. Vital Signs Temperature 98.3 F 05/11/18 21:30 Pulse Rate 97 H 05/11/18 21:30 Respiratory Rate 18 05/11/18 21:30 Blood Pressure 89/49 L 05/11/18 21:30 O2 Sat by Pulse Oximetry (%) 100 05/11/18 21:30 05/11/18 21:55 FSBG 80; patient getting slightly more confused. Patient will get another amp of D50 but needs banana bag first. 05/11/18 22:04 Pt has ketoacidosis, pH 7.0 on ABG, large anion gap, without elevated serum glucose Usually diagnostic of alcoholic ketoacidosis. 05/11/18 23:20 CVC placed in right IJ, confirmed by XR. Before the procedure the banana bag was connected to LAV PIV. The line is finicky and patient is instructed to keep her arm straight as the solution is dripping. It is wide open. However patient becomes suddenly agitated during CVC placement, bends arms. CVC is placed, dark red blood return, non-pulsatile, US guided and confirmed. Portable CXR taken. The patient subsequently pulls out her RAC PIV. She has gotten about 100cc banana bag. Waiting for CVC confirmation CXR to give any more meds as patient has no line. 05/12/18 00:[address] with [facility] [employer] Brigitte Rush, patient to go to ICU, Dr. Dotson. I have also spoken with Radha Izaguirre, patient accepted to ICU. Labs trended as follows while in the ED: Laboratory Tests 05/11/18 05/11/18 05/11/18 16:35 16:35 16:35 WBC 15.3 H RBC 2.98 L Hgb 11.1 Hct 33.5 MCV 112.4 H D MCH 37.3 H MCHC 33.2 RDW 14.4 D Plt Count 77 L D MPV 8.3 Absolute Neuts (auto) 14.0 H Neutrophils % 91.2 H D Neutrophils % (Manual) 59.0 Band Neutrophils % 21.0 Lymphocytes % 3.9 L D Lymphocytes % (Manual) 9.0 D Monocytes % 2.8 L Monocytes % (Manual) 3 L Eosinophils % 0.9 Eosinophils % (Manual) 0.0 D Basophils % 1.2 Basophils % (Manual) 0.0 Nucleated RBC % 1 H Metamyelocytes 8 H D Differential Comment Platelet Estimate Decreased Platelet Comment No clumping noted Macrocytosis 2+ PT with INR INR Puncture Site ABG pH ABG pCO2 at Pt Temp ABG pO2 at Pt Temp ABG HCO3 ABG O2 Sat (Measured) ABG O2 Content ABG Base Excess Baldo Test Carboxyhemoglobin Methemoglobin O2 Delivery Device Oxygen Flow Rate PEEP Sodium 135 L Potassium 6.5 H* Chloride 95 L Carbon Dioxide 8 L Anion Gap 32 H BUN 41 H Creatinine 3.3 H Creat Clearance w eGFR 14.51 POC Glucometer Random Glucose 68 L Lactic Acid Calcium 8.1 L Total Bilirubin 10.0 H AST 280 H ALT 82 H Alkaline Phosphatase 192 H Ammonia 497.20 H Creatine Kinase 145 Creatine Kinase Index CK-MB (CK-2) Troponin I < 0.02 Total Protein 7.7 Albumin 3.0 L Lipase 701 H Urine Color Urine Appearance Urine pH Ur Specific [place] Urine Protein Urine Glucose (UA) Urine Ketones Urine Blood Urine Nitrite Urine Bilirubin Urine Urobilinogen Ur Leukocyte Esterase Urine WBC (Auto) Urine RBC (Auto) Ur Epithelial Cells Amorphous Urates Urine Bacteria Stool Occult Blood Salicylates Opiates Screen Methadone Screen Acetaminophen Barbiturate Screen Phencyclidine Screen Ur Amphetamines Screen MDMA (Ecstasy) Screen Benzodiazepines Screen Cocaine Screen U Marijuana (THC) Screen Acetone, Qual Anti-A Titer Blood Type Antibody Screen 05/11/18 05/11/18 05/11/18 16:47 16:48 16:52 WBC RBC Hgb Hct MCV MCH MCHC RDW Plt Count MPV Absolute Neuts (auto) Neutrophils % Neutrophils % (Manual) Band Neutrophils % Lymphocytes % Lymphocytes % (Manual) Monocytes % Monocytes % (Manual) Eosinophils % Eosinophils % (Manual) Basophils % Basophils % (Manual) Nucleated RBC % Metamyelocytes Differential Comment Platelet Estimate Platelet Comment Macrocytosis PT with INR 16.40 H INR 1.39 H Puncture Site ABG pH ABG pCO2 at Pt Temp ABG pO2 at Pt Temp ABG HCO3 ABG O2 Sat (Measured) ABG O2 Content ABG Base Excess Baldo Test Carboxyhemoglobin Methemoglobin O2 Delivery Device Oxygen Flow Rate PEEP Sodium Potassium Chloride Carbon Dioxide Anion Gap BUN Creatinine Creat Clearance w eGFR POC Glucometer Random Glucose Lactic Acid Calcium Total Bilirubin AST ALT Alkaline Phosphatase Ammonia Creatine Kinase Creatine Kinase Index CK-MB (CK-2) Troponin I Total Protein Albumin Lipase Urine Color Urine Appearance Urine pH Ur Specific [place] Urine Protein Urine Glucose (UA) Urine Ketones Urine Blood Urine Nitrite Urine Bilirubin Urine Urobilinogen Ur Leukocyte Esterase Urine WBC (Auto) Urine RBC (Auto) Ur Epithelial Cells Amorphous Urates Urine Bacteria Stool Occult Blood Negative Salicylates Opiates Screen Methadone Screen Acetaminophen Barbiturate Screen Phencyclidine Screen Ur Amphetamines Screen MDMA (Ecstasy) Screen Benzodiazepines Screen Cocaine Screen U Marijuana (THC) Screen Acetone, Qual Anti-A Titer Blood Type O NEGATIVE Antibody Screen Negative 05/11/18 05/11/18 05/11/18 17:36 18:51 18:51 WBC RBC Hgb Hct MCV MCH MCHC RDW Plt Count MPV Absolute Neuts (auto) Neutrophils % Neutrophils % (Manual) Band Neutrophils % Lymphocytes % Lymphocytes % (Manual) Monocytes % Monocytes % (Manual) Eosinophils % Eosinophils % (Manual) Basophils % Basophils % (Manual) Nucleated RBC % Metamyelocytes Differential Comment Platelet Estimate Platelet Comment Macrocytosis PT with INR INR Puncture Site ABG pH ABG pCO2 at Pt Temp ABG pO2 at Pt Temp ABG HCO3 ABG O2 Sat (Measured) ABG O2 Content ABG Base Excess Baldo Test Carboxyhemoglobin Methemoglobin O2 Delivery Device Oxygen Flow Rate PEEP Sodium Potassium Chloride Carbon Dioxide Anion Gap BUN Creatinine Creat Clearance w eGFR POC Glucometer 67.90753 Random Glucose Lactic Acid Calcium Total Bilirubin AST ALT Alkaline Phosphatase Ammonia Creatine Kinase Creatine Kinase Index CK-MB (CK-2) Troponin I Total Protein Albumin Lipase Urine Color Miladis Urine Appearance Cloudy Urine pH 5.0 Ur Specific [place] 1.009 L Urine Protein 1+ H Urine Glucose (UA) Negative Urine Ketones Negative Urine Blood 1+ H Urine Nitrite Negative Urine Bilirubin Negative Urine Urobilinogen 4.0 e.u/dl H Ur Leukocyte Esterase Trace Urine WBC (Auto) 2 Urine RBC (Auto) 1 Ur Epithelial Cells Few Amorphous Urates 1+ Urine Bacteria Rare Stool Occult Blood Salicylates Opiates Screen Negative Methadone Screen Negative Acetaminophen Barbiturate Screen Negative Phencyclidine Screen Negative Ur Amphetamines Screen Negative MDMA (Ecstasy) Screen Negative Benzodiazepines Screen Negative Cocaine Screen Negative U Marijuana (THC) Screen Negative Acetone, Qual Anti-A Titer Blood Type Antibody Screen 05/11/18 05/11/18 05/11/18 20:30 20:30 20:30 WBC 13.2 H RBC 2.59 L Hgb 9.6 L Hct 29.7 L MCV 114.4 H MCH 37.1 H MCHC 32.5 RDW 14.4 Plt Count 53 L D MPV 8.7 Absolute Neuts (auto) 11.7 H Neutrophils % 88.7 H Neutrophils % (Manual) 60.0 Band Neutrophils % 29.0 Lymphocytes % 6.1 L D Lymphocytes % (Manual) 8.0 Monocytes % 3.3 L Monocytes % (Manual) 2 L Eosinophils % 1.6 Eosinophils % (Manual) 0.0 Basophils % 0.3 Basophils % (Manual) 0.0 Nucleated RBC % 1 H Metamyelocytes 1 D Differential Comment Platelet Estimate Decreased Platelet Comment No clumping noted Macrocytosis 2+ PT with INR INR Puncture Site ABG pH ABG pCO2 at Pt Temp ABG pO2 at Pt Temp ABG HCO3 ABG O2 Sat (Measured) ABG O2 Content ABG Base Excess Baldo Test Carboxyhemoglobin Methemoglobin O2 Delivery Device Oxygen Flow Rate PEEP Sodium 139 Potassium 6.1 H* Chloride 104 Carbon Dioxide 7 L Anion Gap 28 H BUN 41 H Creatinine 3.3 H Creat Clearance w eGFR 14.51 POC Glucometer Random Glucose 88 Lactic Acid Calcium 6.9 L* Total Bilirubin 8.8 H AST 1203 H ALT 366 H Alkaline Phosphatase 166 H Ammonia Creatine Kinase 249 H Creatine Kinase Index 2.9 CK-MB (CK-2) 7.2 H Troponin I Total Protein 6.3 L Albumin 2.6 L Lipase Urine Color Urine Appearance Urine pH Ur Specific [place] Urine Protein Urine Glucose (UA) Urine Ketones Urine Blood Urine Nitrite Urine Bilirubin Urine Urobilinogen Ur Leukocyte Esterase Urine WBC (Auto) Urine RBC (Auto) Ur Epithelial Cells Amorphous Urates Urine Bacteria Stool Occult Blood Salicylates Opiates Screen Methadone Screen Acetaminophen Barbiturate Screen Phencyclidine Screen Ur Amphetamines Screen MDMA (Ecstasy) Screen Benzodiazepines Screen Cocaine Screen U Marijuana (THC) Screen Acetone, Qual Anti-A Titer Cancelled Blood Type Cancelled Antibody Screen Cancelled 05/11/18 05/11/18 05/11/18 20:30 20:30 20:40 WBC RBC Hgb Hct MCV MCH MCHC RDW Plt Count MPV Absolute Neuts (auto) Neutrophils % Neutrophils % (Manual) Band Neutrophils % Lymphocytes % Lymphocytes % (Manual) Monocytes % Monocytes % (Manual) Eosinophils % Eosinophils % (Manual) Basophils % Basophils % (Manual) Nucleated RBC % Metamyelocytes Differential Comment Platelet Estimate Platelet Comment Macrocytosis PT with INR INR Puncture Site ABG pH ABG pCO2 at Pt Temp ABG pO2 at Pt Temp ABG HCO3 ABG O2 Sat (Measured) ABG O2 Content ABG Base Excess Baldo Test Carboxyhemoglobin Methemoglobin O2 Delivery Device Oxygen Flow Rate PEEP Sodium Potassium Chloride Carbon Dioxide Anion Gap BUN Creatinine Creat Clearance w eGFR POC Glucometer Random Glucose Lactic Acid 13.6 H* Calcium Total Bilirubin AST ALT Alkaline Phosphatase Ammonia Creatine Kinase Creatine Kinase Index CK-MB (CK-2) Cancelled Troponin I Total Protein Albumin Lipase Urine Color Urine Appearance Urine pH Ur Specific [place] Urine Protein Urine Glucose (UA) Urine Ketones Urine Blood Urine Nitrite Urine Bilirubin Urine Urobilinogen Ur Leukocyte Esterase Urine WBC (Auto) Urine RBC (Auto) Ur Epithelial Cells Amorphous Urates Urine Bacteria Stool Occult Blood Salicylates Opiates Screen Methadone Screen Acetaminophen Barbiturate Screen Phencyclidine Screen Ur Amphetamines Screen MDMA (Ecstasy) Screen Benzodiazepines Screen Cocaine Screen U Marijuana (THC) Screen Acetone, Qual Positive small 1+ H Anti-A Titer Blood Type Antibody Screen 05/11/18 05/11/18 05/11/18 21:47 21:47 21:47 WBC RBC Hgb Hct MCV MCH MCHC RDW Plt Count MPV Absolute Neuts (auto) Neutrophils % Neutrophils % (Manual) Band Neutrophils % Lymphocytes % Lymphocytes % (Manual) Monocytes % Monocytes % (Manual) Eosinophils % Eosinophils % (Manual) Basophils % Basophils % (Manual) Nucleated RBC % Metamyelocytes Differential Comment Platelet Estimate Platelet Comment Macrocytosis PT with INR INR Puncture Site ABG pH ABG pCO2 at Pt Temp ABG pO2 at Pt Temp ABG HCO3 ABG O2 Sat (Measured) ABG O2 Content ABG Base Excess Baldo Test Carboxyhemoglobin Methemoglobin O2 Delivery Device Oxygen Flow Rate PEEP Sodium 149 H Potassium 6.1 H* Chloride 115 H Carbon Dioxide 7 L Anion Gap 28 H BUN 40 H Creatinine 3.1 H Creat Clearance w eGFR 15.60 POC Glucometer [phone] Random Glucose 67 L Lactic Acid 14.2 H* Calcium 7.0 L Total Bilirubin 8.3 H AST 1459 H ALT 434 H Alkaline Phosphatase 157 H Ammonia Creatine Kinase Creatine Kinase Index CK-MB (CK-2) Troponin I Total Protein 5.9 L Albumin 2.4 L Lipase Urine Color Urine Appearance Urine pH Ur Specific [place] Urine Protein Urine Glucose (UA) Urine Ketones Urine Blood Urine Nitrite Urine Bilirubin Urine Urobilinogen Ur Leukocyte Esterase Urine WBC (Auto) Urine RBC (Auto) Ur Epithelial Cells Amorphous Urates Urine Bacteria Stool Occult Blood Salicylates < 2.0 L Opiates Screen Methadone Screen Acetaminophen < 1.7 L Barbiturate Screen Phencyclidine Screen Ur Amphetamines Screen MDMA (Ecstasy) Screen Benzodiazepines Screen Cocaine Screen U Marijuana (THC) Screen Acetone, Qual Anti-A Titer Blood Type Antibody Screen 05/11/18 05/11/18 22:03 23:41 WBC RBC Hgb Hct MCV MCH MCHC RDW Plt Count MPV Absolute Neuts (auto) Neutrophils % Neutrophils % (Manual) Band Neutrophils % Lymphocytes % Lymphocytes % (Manual) Monocytes % Monocytes % (Manual) Eosinophils % Eosinophils % (Manual) Basophils % Basophils % (Manual) Nucleated RBC % Metamyelocytes Differential Comment Platelet Estimate Platelet Comment Macrocytosis PT with INR INR Puncture Site Left brachial ABG pH 7.00 L* ABG pCO2 at Pt Temp 21.0 L ABG pO2 at Pt Temp 141.0 H ABG HCO3 4.9 L* ABG O2 Sat (Measured) 97.0 ABG O2 Content 11.7 L ABG Base Excess -24.8 L* Baldo Test Positive Carboxyhemoglobin 2.3 H Methemoglobin 0.7 O2 Delivery Device Nasal o2 Oxygen Flow Rate 2lpm PEEP 0.0 Sodium Potassium Chloride Carbon Dioxide Anion Gap BUN Creatinine Creat Clearance w eGFR POC Glucometer [id number] Random Glucose Lactic Acid Calcium Total Bilirubin AST ALT Alkaline Phosphatase Ammonia Creatine Kinase Creatine Kinase Index CK-MB (CK-2) Troponin I Total Protein Albumin Lipase Urine Color Urine Appearance Urine pH Ur Specific Chandler Urine Protein Urine Glucose (UA) Urine Ketones Urine Blood Urine Nitrite Urine Bilirubin Urine Urobilinogen Ur Leukocyte Esterase Urine WBC (Auto) Urine RBC (Auto) Ur Epithelial Cells Amorphous Urates Urine Bacteria Stool Occult Blood Salicylates Opiates Screen Methadone Screen Acetaminophen Barbiturate Screen Phencyclidine Screen Ur Amphetamines Screen MDMA (Ecstasy) Screen Benzodiazepines Screen Cocaine Screen U Marijuana (THC) Screen Acetone, Qual Anti-A Titer Blood Type Antibody Screen Vital Signs Temperature 98.3 F 05/11/18 21:30 Pulse Rate 103 H 05/12/18 01:26 Respiratory Rate 18 05/11/18 21:30 Blood Pressure 74/45 L 05/12/18 01:26 O2 Sat by Pulse Oximetry (%) 100 05/11/18 21:30 *DC/Admit/Observation/Transfer Diagnosis at time of Disposition: Intoxication, Hyperkalemia, Dehydration, Hypoglycemia, Hyperammonemia, Alcoholic ketoacidosis Hypotension Qualifiers: Hypotension type: unspecified hypotension type Qualified Code(s): I95.9 - Hypotension, unspecified ARF (acute renal failure) Qualifiers: Acute renal failure type: unspecified Qualified Code(s): N17.9 - Acute kidney failure, unspecified - Discharge Dispostion Condition at time of disposition: Critical Decision to Admit order: Yes - Referrals - Patient Instructions - Post Discharge Activity
[2018-05-11 17:57] LABS: MACROCYTOSIS 2+; PLATELET ESTIMATE DECREASED
[2018-05-11 18:31] LABS: POTASSIUM 6.5 mmol/L (3.5-5.1)
[2018-05-11] MEDS ORDERED: CALCIUM GLUCONATE 10% - 1,000 MG/10 ML VIAL IVPB ONE (18:32)
[2018-05-11] MEDS ORDERED: ALBUTEROL SO4 0.083% IH SOL 2.5 MG/3 ML VIAL.NEB. NEB ONE (18:33)
[2018-05-11] MEDS ORDERED: CALCIUM GLUCONATE 10% - 1,000 MG/10 ML VIAL ONE (18:46)
--- NOTE | 2018-05-11 18:50 | PDOC ---
Attending Attestation - HPI HPI: 05/11/18 19:25 The patient is a 57 year old female with a significant past medical history of cirrhosis, alcohol dependence, hypothyroidism brought to ED for evaluation of AMS, tachycardia, hypotension today. She reports no PO intake since . As per her boyfriend, the patient has been experiencing nausea, vomiting, multiple falls. The patient denies chest pain, shortness of breath, headache and dizziness. The patient denies fever, chills, nausea, vomit, diarrhea and constipation. The patient denies dysuria, frequency, urgency and hematuria. PSH: L ankle surgery Social: alcohol use. Denies tobacco, marijuana, cocaine, heroin use. - Physicial Exam PE: 05/11/18 19:25 GENERAL: Well developed, well nourished. Awake and alert. Vebral. No acute distress. HEENT: (+) Dried blood around her mouth. Normocephalic, atraumatic. PERRLA, EOMI. No conjunctival pallor. Sclera are non-icteric. Moist mucous membranes. Oropharynx is clear. NECK: Supple. Full ROM. No JVD. Carotid pulses 2+ and symmetric, without bruits. No thyromegaly. No lymphadenopathy. CARDIOVASCULAR: (+) Tachycardic. Regular rhythm. No murmurs, rubs, or gallops. Distal pulses are 2+ and symmetric. PULMONARY: No evidence of respiratory distress. Lungs clear to auscultation bilaterally. No wheezing, rales or rhonchi. ABDOMINAL: (+) Protuberant no focal tenderness. Soft. Non-tender. Non-distended. No rebound or guarding. No organomegaly. Normoactive bowel sounds. RECTAL: Normal tone, brown stool, no Masses MUSCULOSKELETAL Normal range of motion at all joints. No bony deformities or tenderness. No CVA tenderness. EXTREMITIES: No cyanosis. No clubbing. No edema. No calf tenderness. SKIN: Warm and dry. Normal capillary refill. No rashes. No jaundice. TORSO: (+) Large ecchymotic area to left measuring 10cm x 8 cm BACK: (+) [id number] ecchymotic area around T12,L1 LOWER EXTREMITIES: (+) [id number] circular area of ecchymosis to right anterior thigh, Scattered bruising to bilateral lower extremities. No obvious deformities of extremities. NEUROLOGICAL: Alert, awake, verbal. Cranial nerves 2-12 intact. Normoreflexic in the upper and lower extremities. Moving all extremities appropriately. Normal speech. Toes are down-going bilaterally. Gait not assessed. - Critical Care Time Total Critical Care Time: 180 Critical Care Statement: The care of this patient involved high complexity decision making to prevent further life threatening deterioration of the patient 's condition and/or to evaluate & treat vital organ system(s) failure or risk of failure. - Medical Decision Making 05/11/18 19:30 Documentation prepared by Shannon Harris, acting as medical laboratory technician for Brigitte Arboleda MD 05/11/18 22:38 Mr. Devonte Pathak, the patient's significant other, was called and gives consent to "do everything possible" to improve the patient's health. <Shannon Harris - Last Filed: 05/12/18 01:49> - Resident Resident Name: Dea Barbosa - ED Attending Attestation I have performed the following: I have examined & evaluated the patient, The case was reviewed & discussed with the resident, I agree w/resident's findings & plan, Exceptions are as noted - Medical Decision Making 05/12/18 16:27 IMP etoh abuse/Acute kidney failure/hyperkalemia/hypoglycemia/ pt had unstable VS with tachycardia,hypotension and required critical care dring the length of her ER stay <Brigitte Arboleda - Last Filed: 05/12/18 16:30>
[2018-05-11] MEDS ORDERED: SODIUM CHLORIDE 0.9% 500 ML INFUS.BAG IV ONE ×2 (19:00→19:54)
[2018-05-11 19:22] LABS: URINE APPEARANCE CLOUDY; URINE BILIRUBIN NEGATIVE (<2.0 mg/dL); URINE COLOR AMBER; URINE GLUCOSE (UA) NEGATIVE (NEGATIVE); URINE KETONE NEGATIVE (NEGATIVE); URINE LEUK ESTERASE TRACE (NEGATIVE); URINE NITRITE NEGATIVE (NEGATIVE); URINE PROTEIN 1+ (NEGATIVE); URINE UROBILINOGEN 4.0 E.U/dl mg/dL (0.2-1.0)
[2018-05-11 19:37] LABS: EPI CELLS FEW /HPF (FEW); URINE BACTERIA RARE /hpf (NONE SEEN)
[2018-05-11 19:40] LABS: AMORP URATES 1+ /hpf (NONE SEEN)
[2018-05-11 20:32] LABS: COCAINE, UR NEGATIVE ng/ml (CUTOFF=300); METHADONE, UR NEGATIVE ng/ml (CUTOFF=300); OPIATES, URI NEGATIVE ng/ml (CUTOFF=300); PHENCYCLIDINE,URINE NEGATIVE ng/ml (CUTOFF=25); URINE AMPHETAMINES NEGATIVE ng/ml (CUTOFF=500); URINE BARBITURATES NEGATIVE ng/ml (CUTOFF=200); URINE BENZODIAZEPINES NEGATIVE ng/ml (CUTOFF=200)
[2018-05-11] MEDS ORDERED: ONDANSETRON 4 MG/2 ML VIAL IVPUSH ONE (21:05)
[2018-05-11 21:11] LABS: BASO % 0.3 % (0-2.0); EOS % 1.6 % (0-4.5); HEMATOCRIT 29.7 % (32.4-45.2); HEMOGLOBIN 9.6 GM/dL (10.7-15.3); LYMPH % 6.1 % (8-40); MCH 37.1 pg (25.7-33.7); MCHC 32.5 g/dl (32.0-36.0); MEAN CELL VOLUME 114.4 fl (80-96); MEAN PLT VOLUME 8.7 fl (7.5-11.1); MONO % 3.3 % (3.8-10.2); NEUT % 88.7 % (42.8-82.8); PLATELET COUNT 53 K/MM3 (134-434); RBC 2.59 M/mm3 (3.60-5.2); RDW 14.4 % (11.6-15.6); WHITE BLOOD COUNT 13.2 K/mm3 (4.0-10.0)
[2018-05-11] MEDS ORDERED: PANTOPRAZOLE SODIUM 40 MG VIAL IVPUSH ONE (21:13)
[2018-05-11] MEDS ORDERED: FOLIC ACID INJECTION - 1 MG, THIAMINE HCL 100 MG, MULTIVIT INJECTION ADULT 10 ML in SOD... IVPB ONE (21:18)
[2018-05-11 21:37] LABS: ALBUMIN 2.6 g/dl (3.4-5.0); ALK PHOS 166 U/L (45-117); ANION GAP 28 MMOL/L (8-16); BILIRUBIN,TOTAL 8.8 mg/dL (0.2-1); BLOOD UREA NITROGEN 41 mg/dL (7-18); CHLORIDE 104 mmol/L (98-107); CO2 7 mmol/L (21-32); CREATININE 3.3 mg/dL (0.55-1.3); GLUCOSE,RANDOM 88 mg/dL (74-106); SGOT/AST 1203 U/L (15-37); SGPT/ALT 366 U/L (13-61); SODIUM 139 mmol/L (136-145); TOT PROT 6.3 g/dl (6.4-8.2)
[2018-05-11] MEDS ORDERED: ONDANSETRON 4 MG/2 ML VIAL ONE (21:38)
[2018-05-11] MEDS ORDERED: PANTOPRAZOLE SODIUM 40 MG VIAL ONE (21:38)
[2018-05-11 21:41] LABS: CALCIUM 6.9 mg/dL (8.5-10.1); POTASSIUM 6.1 mmol/L (3.5-5.1)
[2018-05-11 22:07] LABS: MACROCYTOSIS 2+
[2018-05-11 22:08] LABS: PLATELET ESTIMATE DECREASED
[2018-05-11 22:16] LABS: ARTERIAL BLOOD GAS BASE EXCESS -24.8 meq/l (-2-2); CARBOXYHEMOGLOBIN 2.3 gm% (0.5-2.0)
[2018-05-11 22:18] LABS: ALLENS TEST POSITIVE
[2018-05-11 22:53] LABS: ALBUMIN 2.4 g/dl (3.4-5.0); ALK PHOS 157 U/L (45-117); ANION GAP 28 MMOL/L (8-16); BILIRUBIN,TOTAL 8.3 mg/dL (0.2-1); BLOOD UREA NITROGEN 40 mg/dL (7-18); CHLORIDE 115 mmol/L (98-107); CO2 7 mmol/L (21-32); CREATININE 3.1 mg/dL (0.55-1.3); GLUCOSE,RANDOM 67 mg/dL (74-106); SGOT/AST 1459 U/L (15-37); SGPT/ALT 434 U/L (13-61); SODIUM 149 mmol/L (136-145); TOT PROT 5.9 g/dl (6.4-8.2)
[2018-05-11 22:55] LABS: POTASSIUM 6.1 mmol/L (3.5-5.1)
[2018-05-11] MEDS: RIFAXIMIN 550 MG TABLET (UD) PO SCH (23:49)
--- NOTE | 2018-05-11 23:57 | CONSULT ---
Consultation: REQUESTING PROVIDER: CONSULT REQUEST: We have been asked to medically evaluate this patient for ( specify). HISTORY OF PRESENT ILLNESS: This is a 57 yo F with a PMH of EtOH abuse, cirrhosis, EtOH pancreatitis and hypothyroidism, who was brought to ED acutely EtOH intoxocated, with AMS, tachycardia and hypotension. Last PO intake Thurs per boyfriend, has been having n/v and multiple falls. Found to be in alcoholic ketoacidosis, with associated lactic acidosis, hyperchloremic acidosis, hypoglycemia, hyperkalemia , transaminitis and lilia. IN ED patient hypotensive MAP 50's, improving to 62 with 4 L NS, currently has banana bag running. received several amps of d50 for hypoglycemia. was initially treated for kyperkalemia with spiked ts on EKG with hyperkalemia cocktail, without improvement in K. R IJ central line placed. REVIEW OF SYSTEMS: unable to obtain, patient intoxicated and lethargic PHYSICAL EXAMINATION Vital Signs - 24 hr 05/11/18 05/11/18 05/11/18 15:48 16:25 17:06 Temperature 97.7 F Pulse Rate 123 H Pulse Rate [ 94 H 113 H Right Radial] Respiratory 20 25 H 22 H Rate Blood Pressure 72/44 L Blood Pressure 85/39 L 74/34 L [Left Arm] O2 Sat by Pulse 94 L 99 99 Oximetry (%) 05/11/18 05/11/18 05/11/18 17:30 17:50 18:03 Temperature Pulse Rate Pulse Rate [ 150 H 97 H 107 H Right Radial] Respiratory 26 H 24 H 22 H Rate Blood Pressure Blood Pressure 84/39 L 96/41 L 103/48 L [Left Arm] O2 Sat by Pulse 99 99 99 Oximetry (%) 05/11/18 05/11/18 05/11/18 18:23 18:30 20:40 Temperature 97.4 F L Pulse Rate Pulse Rate [ 95 H 96 H 105 H Right Radial] Respiratory 20 22 H 22 H Rate Blood Pressure Blood Pressure 100/45 L 111/39 L 92/40 L [Left Arm] O2 Sat by Pulse 99 99 99 Oximetry (%) 05/11/18 21:30 Temperature 98.3 F Pulse Rate Pulse Rate [ 97 H Right Radial] Respiratory 18 Rate Blood Pressure Blood Pressure 89/49 L [Left Arm] O2 Sat by Pulse 100 Oximetry (%) GENERAL: opens eyes to verbal stimulus but unable to provide history. lethargic and intoxicated HEAD: Normal with no signs of trauma. EYES: Pupils equal, round and reactive to light, 3mm, sclera anicteric, conjunctiva clear. EARS, NOSE, THROAT: somewhat dry mucous membranes. NECK: supple LUNGS: Breath sounds equal, clear to auscultation bilaterally HEART: Regular rate and rhythm, normal S1 and S2 ABDOMEN: Soft, nontender, not distended, globally reduced bowel sounds, no guarding, no rebound, no masses. MUSCULOSKELETAL: No CVA tenderness. UPPER EXTREMITIES: 2+ pulses, warm, well-perfused. No cyanosis. No peripheral edema. LOWER EXTREMITIES: 1+ pulses, warm, well-perfused. No calf tenderness. No peripheral edema. NEUROLOGICAL: unable to assess PSYCHIATRIC: unable to assess SKIN: Warm, dry, decreased turgor Laboratory Results - last 24 hr 05/11/18 05/11/18 05/11/18 16:35 16:35 16:35 WBC 15.3 H RBC 2.98 L Hgb 11.1 Hct 33.5 MCV 112.4 H D MCH 37.3 H MCHC 33.2 RDW 14.4 D Plt Count 77 L D MPV 8.3 Absolute Neuts (auto) 14.0 H Neutrophils % 91.2 H D Neutrophils % (Manual) 59.0 Band Neutrophils % 21.0 Lymphocytes % 3.9 L D Lymphocytes % (Manual) 9.0 D Monocytes % 2.8 L Monocytes % (Manual) 3 L Eosinophils % 0.9 Eosinophils % (Manual) 0.0 D Basophils % 1.2 Basophils % (Manual) 0.0 Nucleated RBC % 1 H Metamyelocytes 8 H D Differential Comment Platelet Estimate Decreased Platelet Comment No clumping noted Macrocytosis 2+ PT with INR INR Puncture Site ABG pH ABG pCO2 at Pt Temp ABG pO2 at Pt Temp ABG HCO3 ABG O2 Sat (Measured) ABG O2 Content ABG Base Excess Baldo Test Carboxyhemoglobin Methemoglobin O2 Delivery Device Oxygen Flow Rate PEEP Sodium 135 L Potassium 6.5 H* Chloride 95 L Carbon Dioxide 8 L Anion Gap 32 H BUN 41 H Creatinine 3.3 H Creat Clearance w eGFR 14.51 POC Glucometer Random Glucose 68 L Lactic Acid Calcium 8.1 L Total Bilirubin 10.0 H AST 280 H ALT 82 H Alkaline Phosphatase 192 H Ammonia 497.20 H Creatine Kinase 145 Creatine Kinase Index CK-MB (CK-2) Troponin I < 0.02 Total Protein 7.7 Albumin 3.0 L Lipase 701 H Urine Color Urine Appearance Urine pH Ur Specific [place] Urine Protein Urine Glucose (UA) Urine Ketones Urine Blood Urine Nitrite Urine Bilirubin Urine Urobilinogen Ur Leukocyte Esterase Urine WBC (Auto) Urine RBC (Auto) Ur Epithelial Cells Amorphous Urates Urine Bacteria Stool Occult Blood Salicylates Opiates Screen Methadone Screen Acetaminophen Barbiturate Screen Phencyclidine Screen Ur Amphetamines Screen MDMA (Ecstasy) Screen Benzodiazepines Screen Cocaine Screen U Marijuana (THC) Screen Acetone, Qual Anti-A Titer Blood Type Antibody Screen 05/11/18 05/11/18 05/11/18 16:47 16:48 16:52 WBC RBC Hgb Hct MCV MCH MCHC RDW Plt Count MPV Absolute Neuts (auto) Neutrophils % Neutrophils % (Manual) Band Neutrophils % Lymphocytes % Lymphocytes % (Manual) Monocytes % Monocytes % (Manual) Eosinophils % Eosinophils % (Manual) Basophils % Basophils % (Manual) Nucleated RBC % Metamyelocytes Differential Comment Platelet Estimate Platelet Comment Macrocytosis PT with INR 16.40 H INR 1.39 H Puncture Site ABG pH ABG pCO2 at Pt Temp ABG pO2 at Pt Temp ABG HCO3 ABG O2 Sat (Measured) ABG O2 Content ABG Base Excess Baldo Test Carboxyhemoglobin Methemoglobin O2 Delivery Device Oxygen Flow Rate PEEP Sodium Potassium Chloride Carbon Dioxide Anion Gap BUN Creatinine Creat Clearance w eGFR POC Glucometer Random Glucose Lactic Acid Calcium Total Bilirubin AST ALT Alkaline Phosphatase Ammonia Creatine Kinase Creatine Kinase Index CK-MB (CK-2) Troponin I Total Protein Albumin Lipase Urine Color Urine Appearance Urine pH Ur Specific [place] Urine Protein Urine Glucose (UA) Urine Ketones Urine Blood Urine Nitrite Urine Bilirubin Urine Urobilinogen Ur Leukocyte Esterase Urine WBC (Auto) Urine RBC (Auto) Ur Epithelial Cells Amorphous Urates Urine Bacteria Stool Occult Blood Negative Salicylates Opiates Screen Methadone Screen Acetaminophen Barbiturate Screen Phencyclidine Screen Ur Amphetamines Screen MDMA (Ecstasy) Screen Benzodiazepines Screen Cocaine Screen U Marijuana (THC) Screen Acetone, Qual Anti-A Titer Blood Type O NEGATIVE Antibody Screen Negative 05/11/18 05/11/18 05/11/18 17:36 18:51 18:51 WBC RBC Hgb Hct MCV MCH MCHC RDW Plt Count MPV Absolute Neuts (auto) Neutrophils % Neutrophils % (Manual) Band Neutrophils % Lymphocytes % Lymphocytes % (Manual) Monocytes % Monocytes % (Manual) Eosinophils % Eosinophils % (Manual) Basophils % Basophils % (Manual) Nucleated RBC % Metamyelocytes Differential Comment Platelet Estimate Platelet Comment Macrocytosis PT with INR INR Puncture Site ABG pH ABG pCO2 at Pt Temp ABG pO2 at Pt Temp ABG HCO3 ABG O2 Sat (Measured) ABG O2 Content ABG Base Excess Baldo Test Carboxyhemoglobin Methemoglobin O2 Delivery Device Oxygen Flow Rate PEEP Sodium Potassium Chloride Carbon Dioxide Anion Gap BUN Creatinine Creat Clearance w eGFR POC Glucometer 67.64984 Random Glucose Lactic Acid Calcium Total Bilirubin AST ALT Alkaline Phosphatase Ammonia Creatine Kinase Creatine Kinase Index CK-MB (CK-2) Troponin I Total Protein Albumin Lipase Urine Color [place] Urine Appearance Cloudy Urine pH 5.0 Ur Specific [place] 1.009 L Urine Protein 1+ H Urine Glucose (UA) Negative Urine Ketones Negative Urine Blood 1+ H Urine Nitrite Negative Urine Bilirubin Negative Urine Urobilinogen 4.0 e.u/dl H Ur Leukocyte Esterase Trace Urine WBC (Auto) 2 Urine RBC (Auto) 1 Ur Epithelial Cells Few Amorphous Urates 1+ Urine Bacteria Rare Stool Occult Blood Salicylates Opiates Screen Negative Methadone Screen Negative Acetaminophen Barbiturate Screen Negative Phencyclidine Screen Negative Ur Amphetamines Screen Negative MDMA (Ecstasy) Screen Negative Benzodiazepines Screen Negative Cocaine Screen Negative U Marijuana (THC) Screen Negative Acetone, Qual Anti-A Titer Blood Type Antibody Screen 05/11/18 05/11/18 05/11/18 20:30 20:30 20:30 WBC 13.2 H RBC 2.59 L Hgb 9.6 L Hct 29.7 L MCV 114.4 H MCH 37.1 H MCHC 32.5 RDW 14.4 Plt Count 53 L D MPV 8.7 Absolute Neuts (auto) 11.7 H Neutrophils % 88.7 H Neutrophils % (Manual) 60.0 Band Neutrophils % 29.0 Lymphocytes % 6.1 L D Lymphocytes % (Manual) 8.0 Monocytes % 3.3 L Monocytes % (Manual) 2 L Eosinophils % 1.6 Eosinophils % (Manual) 0.0 Basophils % 0.3 Basophils % (Manual) 0.0 Nucleated RBC % 1 H Metamyelocytes 1 D Differential Comment Platelet Estimate Decreased Platelet Comment No clumping noted Macrocytosis 2+ PT with INR INR Puncture Site ABG pH ABG pCO2 at Pt Temp ABG pO2 at Pt Temp ABG HCO3 ABG O2 Sat (Measured) ABG O2 Content ABG Base Excess Baldo Test Carboxyhemoglobin Methemoglobin O2 Delivery Device Oxygen Flow Rate PEEP Sodium 139 Potassium 6.1 H* Chloride 104 Carbon Dioxide 7 L Anion Gap 28 H BUN 41 H Creatinine 3.3 H Creat Clearance w eGFR 14.51 POC Glucometer Random Glucose 88 Lactic Acid Calcium 6.9 L* Total Bilirubin 8.8 H AST 1203 H ALT 366 H Alkaline Phosphatase 166 H Ammonia Creatine Kinase 249 H Creatine Kinase Index 2.9 CK-MB (CK-2) 7.2 H Troponin I Total Protein 6.3 L Albumin 2.6 L Lipase Urine Color Urine Appearance Urine pH Ur Specific [place] Urine Protein Urine Glucose (UA) Urine Ketones Urine Blood Urine Nitrite Urine Bilirubin Urine Urobilinogen Ur Leukocyte Esterase Urine WBC (Auto) Urine RBC (Auto) Ur Epithelial Cells Amorphous Urates Urine Bacteria Stool Occult Blood Salicylates Opiates Screen Methadone Screen Acetaminophen Barbiturate Screen Phencyclidine Screen Ur Amphetamines Screen MDMA (Ecstasy) Screen Benzodiazepines Screen Cocaine Screen U Marijuana (THC) Screen Acetone, Qual Anti-A Titer Cancelled Blood Type Cancelled Antibody Screen Cancelled 05/11/18 05/11/18 05/11/18 20:30 20:30 20:40 WBC RBC Hgb Hct MCV MCH MCHC RDW Plt Count MPV Absolute Neuts (auto) Neutrophils % Neutrophils % (Manual) Band Neutrophils % Lymphocytes % Lymphocytes % (Manual) Monocytes % Monocytes % (Manual) Eosinophils % Eosinophils % (Manual) Basophils % Basophils % (Manual) Nucleated RBC % Metamyelocytes Differential Comment Platelet Estimate Platelet Comment Macrocytosis PT with INR INR Puncture Site ABG pH ABG pCO2 at Pt Temp ABG pO2 at Pt Temp ABG HCO3 ABG O2 Sat (Measured) ABG O2 Content ABG Base Excess Baldo Test Carboxyhemoglobin Methemoglobin O2 Delivery Device Oxygen Flow Rate PEEP Sodium Potassium Chloride Carbon Dioxide Anion Gap BUN Creatinine Creat Clearance w eGFR POC Glucometer Random Glucose Lactic Acid 13.6 H* Calcium Total Bilirubin AST ALT Alkaline Phosphatase Ammonia Creatine Kinase Creatine Kinase Index CK-MB (CK-2) Cancelled Troponin I Total Protein Albumin Lipase Urine Color Urine Appearance Urine pH Ur Specific [place] Urine Protein Urine Glucose (UA) Urine Ketones Urine Blood Urine Nitrite Urine Bilirubin Urine Urobilinogen Ur Leukocyte Esterase Urine WBC (Auto) Urine RBC (Auto) Ur Epithelial Cells Amorphous Urates Urine Bacteria Stool Occult Blood Salicylates Opiates Screen Methadone Screen Acetaminophen Barbiturate Screen Phencyclidine Screen Ur Amphetamines Screen MDMA (Ecstasy) Screen Benzodiazepines Screen Cocaine Screen U Marijuana (THC) Screen Acetone, Qual Positive small 1+ H Anti-A Titer Blood Type Antibody Screen 05/11/18 05/11/18 05/11/18 21:47 21:47 21:47 WBC RBC Hgb Hct MCV MCH MCHC RDW Plt Count MPV Absolute Neuts (auto) Neutrophils % Neutrophils % (Manual) Band Neutrophils % Lymphocytes % Lymphocytes % (Manual) Monocytes % Monocytes % (Manual) Eosinophils % Eosinophils % (Manual) Basophils % Basophils % (Manual) Nucleated RBC % Metamyelocytes Differential Comment Platelet Estimate Platelet Comment Macrocytosis PT with INR INR Puncture Site ABG pH ABG pCO2 at Pt Temp ABG pO2 at Pt Temp ABG HCO3 ABG O2 Sat (Measured) ABG O2 Content ABG Base Excess Baldo Test Carboxyhemoglobin Methemoglobin O2 Delivery Device Oxygen Flow Rate PEEP Sodium 149 H Potassium 6.1 H* Chloride 115 H Carbon Dioxide 7 L Anion Gap 28 H BUN 40 H Creatinine 3.1 H Creat Clearance w eGFR 15.60 POC Glucometer 80.48472 Random Glucose 67 L Lactic Acid 14.2 H* Calcium 7.0 L Total Bilirubin 8.3 H AST 1459 H ALT 434 H Alkaline Phosphatase 157 H Ammonia Creatine Kinase Creatine Kinase Index CK-MB (CK-2) Troponin I Total Protein 5.9 L Albumin 2.4 L Lipase Urine Color Urine Appearance Urine pH Ur Specific [place] Urine Protein Urine Glucose (UA) Urine Ketones Urine Blood Urine Nitrite Urine Bilirubin Urine Urobilinogen Ur Leukocyte Esterase Urine WBC (Auto) Urine RBC (Auto) Ur Epithelial Cells Amorphous Urates Urine Bacteria Stool Occult Blood Salicylates < 2.0 L Opiates Screen Methadone Screen Acetaminophen < 1.7 L Barbiturate Screen Phencyclidine Screen Ur Amphetamines Screen MDMA (Ecstasy) Screen Benzodiazepines Screen Cocaine Screen U Marijuana (THC) Screen Acetone, Qual Anti-A Titer Blood Type Antibody Screen 05/11/18 22:03 WBC RBC Hgb Hct MCV MCH MCHC RDW Plt Count MPV Absolute Neuts (auto) Neutrophils % Neutrophils % (Manual) Band Neutrophils % Lymphocytes % Lymphocytes % (Manual) Monocytes % Monocytes % (Manual) Eosinophils % Eosinophils % (Manual) Basophils % Basophils % (Manual) Nucleated RBC % Metamyelocytes Differential Comment Platelet Estimate Platelet Comment Macrocytosis PT with INR INR Puncture Site Left brachial ABG pH 7.00 L* ABG pCO2 at Pt Temp 21.0 L ABG pO2 at Pt Temp 141.0 H ABG HCO3 4.9 L* ABG O2 Sat (Measured) 97.0 ABG O2 Content 11.7 L ABG Base Excess -24.8 L* Baldo Test Positive Carboxyhemoglobin 2.3 H Methemoglobin 0.7 O2 Delivery Device Nasal o2 Oxygen Flow Rate 2lpm PEEP 0.0 Sodium Potassium Chloride Carbon Dioxide Anion Gap BUN Creatinine Creat Clearance w eGFR POC Glucometer Random Glucose Lactic Acid Calcium Total Bilirubin AST ALT Alkaline Phosphatase Ammonia Creatine Kinase Creatine Kinase Index CK-MB (CK-2) Troponin I Total Protein Albumin Lipase Urine Color Urine Appearance Urine pH Ur Specific [place] Urine Protein Urine Glucose (UA) Urine Ketones Urine Blood Urine Nitrite Urine Bilirubin Urine Urobilinogen Ur Leukocyte Esterase Urine WBC (Auto) Urine RBC (Auto) Ur Epithelial Cells Amorphous Urates Urine Bacteria Stool Occult Blood Salicylates Opiates Screen Methadone Screen Acetaminophen Barbiturate Screen Phencyclidine Screen Ur Amphetamines Screen MDMA (Ecstasy) Screen Benzodiazepines Screen Cocaine Screen U Marijuana (THC) Screen Acetone, Qual Anti-A Titer Blood Type Antibody Screen Active Medications Generic Name Dose Route Start Last Admin Trade Name Freq PRN Reason Stop Dose Admin Folic Acid 1 mg/ Thiamine HCl 1,000 mls @ 125 mls/hr 05/11/18 21:18 05/11/18 23:24 100 mg/ Multivitamins/Minerals IVPB 05/12/18 05:17 125 mls/hr 10 ml/ Sodium Chloride ONCE ONE Administration Rifaximin 550 mg 05/11/18 22:00 05/11/18 23:49 Xifaxan - PO 550 mg BID [place] Administration ASSESSMENT/PLAN: This is a 57 yo F with a PMH of EtOH abuse, cirrhosis, EtOH pancreatitis and hypothyroidism, who was brought to ED acutely EtOH intoxocated, with AMS, tachycardia and hypotension. Alcoholic ketoacidosis/hypercholoremic acidosis/lactic acidosis associated hypoglycemia associated LILIA associated transaminitis associated hyperkalemia associated elevated lipase 700 associated hyperammonemia Acute EtOH intoxication entering withdrawal Cirrhosis hypothyroidism -Thiamine, banana bag -f/u mag and phos, will likely need repletion -patient dry: aggressive balanced crystalloid resuscitation @ 150 with boluses as needed for hypertension -will not treat hyperkalemia; patient actually hypokalemic with K shift to extracellular fluid due to acidosis. expect improvement with IV hydration and dextrose as needed -BGM q2h, D50 pushes prn for hypoglycemia -pre renal LILIA should improve with hydration -acutely worsening transaminitis and hyperammonemia because of worsening ketosis as serum EtOH levels drop. should improve with hydration and dextrose -elevated lipase, may be a pancreatitis component, will be giving LR as it is. f /u triglycerides. CXR no effusions or ARDS -Ativan PRN for withdrawal; patient allergic with rash but still needs IV benzo ; IV benadryl prn for rash. Will switch to librium when mental status improves -cardiac monitoring -aspiration precautions -3 am labs Dispo: We will continue to follow the patient. Thank you for this consultative opportunity. Problem List - Problems (1) Alcoholic ketoacidosis Code(s): E87.2 - ACIDOSIS (2) Dehydration Code(s): E86.0 - DEHYDRATION (3) Hyperammonemia Code(s): E72.20 - DISORDER OF UREA CYCLE METABOLISM, UNSPECIFIED (4) Hyperkalemia Code(s): E87.5 - HYPERKALEMIA (5) Hypoglycemia Code(s): E16.2 - HYPOGLYCEMIA, UNSPECIFIED (6) Hypotension Code(s): I95.9 - HYPOTENSION, UNSPECIFIED Qualifiers: Hypotension type: unspecified hypotension type Qualified Code(s): I95.9 - Hypotension, unspecified (7) Intoxication Code(s): [id number] - (8) Acute alcohol intoxication Code(s): F10.929 - ALCOHOL USE, UNSPECIFIED WITH INTOXICATION, UNSPECIFIED Qualifiers: Complication of substance-induced condition: uncomplicated Qualified Code(s ): F10.929 - Alcohol use, unspecified with intoxication, unspecified (9) Advanced cirrhosis of liver Code(s): K74.60 - UNSPECIFIED CIRRHOSIS OF LIVER (10) Alcohol intoxication Code(s): F10.929 - ALCOHOL USE, UNSPECIFIED WITH INTOXICATION, UNSPECIFIED Qualifiers: Complication of substance-induced condition: uncomplicated Qualified Code(s ): F10.920 - Alcohol use, unspecified with intoxication, uncomplicated (11) Alcoholic cirrhosis of liver Code(s): K70.30 - ALCOHOLIC CIRRHOSIS OF LIVER WITHOUT ASCITES Qualifiers: Ascites presence: with ascites Qualified Code(s): K70.31 - Alcoholic cirrhosis of liver with ascites (12) Anemia Code(s): D64.9 - ANEMIA, UNSPECIFIED Visit type - Emergency Visit Emergency Visit: Yes ED Registration Date: 05/12/18 Care time: The patient presented to the Emergency Department on the above date and was hospitalized for further evaluation of their emergent condition. - New Patient This patient is new to me today: Yes Date on this admission: 05/12/18 - Critical Care Critical Care patient: Yes Total Critical Care Time (in minutes): 45 Critical Care Statement: The care of this patient involved high complexity decision making to prevent further life threatening deterioration of the patient 's condition and/or to evaluate & treat vital organ system(s) failure or risk of failure.
[2018-05-12] MEDS ORDERED: DEXTROSE 50%-WATER - 25 GM/50 ML VIAL IVPUSH PRN (00:06)
[2018-05-12] MEDS ORDERED: THIAMINE HCL 200 MG/2 ML VIAL IVPB ONE ×2 (00:15→07:45)
[2018-05-12] MEDS ORDERED: LACTATED RINGERS SOLUTION 1,000 ML/1,000 ML INFUS.BAG IV SCH (00:15)
[2018-05-12] MEDS ORDERED: LORazepam 2 MG/ML SDV VIAL IVPUSH PRN (00:25)
[2018-05-12] MEDS ORDERED: ONDANSETRON 4 MG/2 ML VIAL IVPUSH PRN (00:27)
--- NOTE | 2018-05-12 00:51 | HP ---
Admitting History and Physical - Primary Care Physician PCP: Wilmar Jeong - Admission Chief Complaint: Altered Mental Status History of Present Illness: This is a 57 y/o woman PMHx of Alcohol Abuse. Who presents to the ED by ambulance for AMS per her spouse to the ED. Per the ED resident the reports that the patient has been binge drinking.In the ED patient was found to be Altered with electrolyte imbalance: K 6.5, BUN 41, Cr 3.3, Glucose 68, AST 280, ALT 82, Alk Phos 192, Lipase 701, Ammonia 497, WBC 15.3, Lactic Acid 14.2. BP has been 70s/40s. Patient will be admitted to ICU for Septic Shock, Acute Renal Failure, Electrolyte Imbalance, Hepatic Encephalopathy History Source: Family Member, Medical Record Limitations to Obtaining History: Clinical Condition - Past Medical History Gastrointestinal: Yes: GERD, Pancreatitis (recurrent) Hepatobiliary: Yes: Cirrhosis (possible) ...LMP: 08/01/12 Heme/Onc: Yes: Thrombocytopenia Psych: Yes: Addictions Endocrine: Yes: Hypothyroidism - Past Surgical History Past Surgical History: Yes: - Smoking History Smoking history: Never smoked Have you smoked in the past 12 months: No Aproximately how many cigarettes per day: 0 - Alcohol/Substance Use Hx Alcohol Use: Yes Number of Drinks Daily: 2 (pints) History of Substance Use: reports: Cocaine (4 weeks ago) - Social History ADL: Independent 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 History of Recent Travel: No Home Medications - Allergies Allergies/Adverse Reactions: Allergies Allergy/AdvReac Type Severity Reaction Status Date / Time lamotrigine [From Lamictal] Allergy Verified 03/17/18 11:16 lorazepam [From Ativan] Allergy Rash Verified 03/17/18 11:16 - Home Medications Home Medications: Ambulatory Orders Folic Acid 1 mg PO DAILY #30 tablet 11/27/17 Levothyroxine [Synthroid -] 100 mcg PO DAILY@0700 #30 tablet 11/27/17 Magnesium Oxide [Mag-Ox -] 400 mg PO BID #60 tablet 11/27/17 Thiamine HCl [Vitamin B1 -] 100 mg PO HS #30 tablet 11/27/17 Lactulose (Oral Use) [Cephulac -] 20 gm PO TID udc 12/23/17 Vitamins (Sjr) - 1 tab PO DAILY tablet 12/23/17 Pantoprazole Sodium [Protonix -] 40 mg PO DAILY 05/11/18 Family Disease History - Family Disease History Family Disease History: Diabetes: Father (etoh), Heart Disease: Mother (anxiety, triple bypass, aortic repair), Other: Father Review of Systems Unable to obtain ROS, reason: Obtunded Physical Examination Vital Signs: Vital Signs Temperature 98.3 F 05/11/18 21:30 Pulse Rate 97 H 05/11/18 21:30 Respiratory Rate 18 05/11/18 21:30 Blood Pressure 89/49 L 05/11/18 21:30 O2 Sat by Pulse Oximetry (%) 100 05/11/18 21:30 Constitutional: Yes: Obese Eyes: Yes: PERRL, Sclera Icterus HENT: Yes: WNL, Atraumatic, Normocephalic Neck: Yes: Supple, Trachea Midline Cardiovascular: Yes: Regular Rate and Rhythm, S1, S2 Respiratory: Yes: Regular, CTA Bilaterally Gastrointestinal: Yes: Abdomen, Obese, Ascites, Hepatomegaly, Hypoactive Bowel Sounds ...Rectal Exam: Yes: Sphincter Tone Normal, Other (incontinence) Renal/: Yes: Incontinence Breast(s): Yes: WNL Musculoskeletal: Yes: WNL Extremities: Yes: WNL Edema: No Peripheral Pulses WNL: Yes Integumentary: Yes: Bruising (ecchymotic to mid back and chest) Neurological: Yes: Lethargy Psychiatric: Yes: Agitated Labs: CBC, BMP 05/11/18 20:30 05/11/18 21:47 Laboratory Results - last 24 hr 05/11/18 05/11/18 05/11/18 16:35 16:35 16:35 WBC 15.3 H Corrected WBC (auto) RBC 2.98 L Hgb 11.1 Hct 33.5 MCV 112.4 H D MCH 37.3 H MCHC 33.2 RDW 14.4 D Plt Count 77 L D MPV 8.3 Absolute Neuts (auto) 14.0 H Neutrophils % 91.2 H D Neutrophils % (Manual) 59.0 Band Neutrophils % 21.0 Lymphocytes % 3.9 L D Lymphocytes % (Manual) 9.0 D Monocytes % 2.8 L Monocytes % (Manual) 3 L Eosinophils % 0.9 Eosinophils % (Manual) 0.0 D Basophils % 1.2 Basophils % (Manual) 0.0 Myelocytes % (Man) Promyelocytes % (Man) Blast Cells % (Manual) Nucleated RBC % 1 H Metamyelocytes 8 H D Differential Comment Hypochromia Platelet Estimate Decreased Platelet Comment No clumping noted Polychromasia Poikilocytosis Anisocytosis Microcytosis Macrocytosis 2+ PT with INR INR Puncture Site ABG pH ABG pCO2 at Pt Temp ABG pO2 at Pt Temp ABG HCO3 ABG O2 Sat (Measured) ABG O2 Content ABG Base Excess Baldo Test Carboxyhemoglobin Methemoglobin O2 Delivery Device Oxygen Flow Rate PEEP Sodium 135 L Potassium 6.5 H* Chloride 95 L Carbon Dioxide 8 L Anion Gap 32 H BUN 41 H Creatinine 3.3 H Creat Clearance w eGFR 14.51 POC Glucometer Random Glucose 68 L Lactic Acid Calcium 8.1 L Phosphorus Magnesium Total Bilirubin 10.0 H AST 280 H ALT 82 H Alkaline Phosphatase 192 H Ammonia 497.20 H Creatine Kinase 145 Creatine Kinase Index CK-MB (CK-2) Troponin I < 0.02 Total Protein 7.7 Albumin 3.0 L Triglycerides Lipase 701 H Urine Color Urine Appearance Urine pH Ur Specific Morganza Urine Protein Urine Glucose (UA) Urine Ketones Urine Blood Urine Nitrite Urine Bilirubin Urine Urobilinogen Ur Leukocyte Esterase Urine WBC (Auto) Urine RBC (Auto) Ur Epithelial Cells Amorphous Urates Urine Bacteria Stool Occult Blood Salicylates Opiates Screen Methadone Screen Acetaminophen Barbiturate Screen Phencyclidine Screen Ur Amphetamines Screen MDMA (Ecstasy) Screen Benzodiazepines Screen Cocaine Screen U Marijuana (THC) Screen Acetone, Qual Anti-A Titer Blood Type Antibody Screen 05/11/18 05/11/18 05/11/18 16:47 16:48 16:52 WBC Corrected WBC (auto) RBC Hgb Hct MCV MCH MCHC RDW Plt Count MPV Absolute Neuts (auto) Neutrophils % Neutrophils % (Manual) Band Neutrophils % Lymphocytes % Lymphocytes % (Manual) Monocytes % Monocytes % (Manual) Eosinophils % Eosinophils % (Manual) Basophils % Basophils % (Manual) Myelocytes % (Man) Promyelocytes % (Man) Blast Cells % (Manual) Nucleated RBC % Metamyelocytes Differential Comment Hypochromia Platelet Estimate Platelet Comment Polychromasia Poikilocytosis Anisocytosis Microcytosis Macrocytosis PT with INR 16.40 H INR 1.39 H Puncture Site ABG pH ABG pCO2 at Pt Temp ABG pO2 at Pt Temp ABG HCO3 ABG O2 Sat (Measured) ABG O2 Content ABG Base Excess Baldo Test Carboxyhemoglobin Methemoglobin O2 Delivery Device Oxygen Flow Rate PEEP Sodium Potassium Chloride Carbon Dioxide Anion Gap BUN Creatinine Creat Clearance w eGFR POC Glucometer Random Glucose Lactic Acid Calcium Phosphorus Magnesium Total Bilirubin AST ALT Alkaline Phosphatase Ammonia Creatine Kinase Creatine Kinase Index CK-MB (CK-2) Troponin I Total Protein Albumin Triglycerides Lipase Urine Color Urine Appearance Urine pH Ur Specific Morganza Urine Protein Urine Glucose (UA) Urine Ketones Urine Blood Urine Nitrite Urine Bilirubin Urine Urobilinogen Ur Leukocyte Esterase Urine WBC (Auto) Urine RBC (Auto) Ur Epithelial Cells Amorphous Urates Urine Bacteria Stool Occult Blood Negative Salicylates Opiates Screen Methadone Screen Acetaminophen Barbiturate Screen Phencyclidine Screen Ur Amphetamines Screen MDMA (Ecstasy) Screen Benzodiazepines Screen Cocaine Screen U Marijuana (THC) Screen Acetone, Qual Anti-A Titer Blood Type O NEGATIVE Antibody Screen Negative 05/11/18 05/11/18 05/11/18 17:36 18:51 18:51 WBC Corrected WBC (auto) RBC Hgb Hct MCV MCH MCHC RDW Plt Count MPV Absolute Neuts (auto) Neutrophils % Neutrophils % (Manual) Band Neutrophils % Lymphocytes % Lymphocytes % (Manual) Monocytes % Monocytes % (Manual) Eosinophils % Eosinophils % (Manual) Basophils % Basophils % (Manual) Myelocytes % (Man) Promyelocytes % (Man) Blast Cells % (Manual) Nucleated RBC % Metamyelocytes Differential Comment Hypochromia Platelet Estimate Platelet Comment Polychromasia Poikilocytosis Anisocytosis Microcytosis Macrocytosis PT with INR INR Puncture Site ABG pH ABG pCO2 at Pt Temp ABG pO2 at Pt Temp ABG HCO3 ABG O2 Sat (Measured) ABG O2 Content ABG Base Excess Baldo Test Carboxyhemoglobin Methemoglobin O2 Delivery Device Oxygen Flow Rate PEEP Sodium Potassium Chloride Carbon Dioxide Anion Gap BUN Creatinine Creat Clearance w eGFR POC Glucometer 67.21570 Random Glucose Lactic Acid Calcium Phosphorus Magnesium Total Bilirubin AST ALT Alkaline Phosphatase Ammonia Creatine Kinase Creatine Kinase Index CK-MB (CK-2) Troponin I Total Protein Albumin Triglycerides Lipase Urine Color Miladis Urine Appearance Cloudy Urine pH 5.0 Ur Specific Morgan[place] 1.009 L Urine Protein 1+ H Urine Glucose (UA) Negative Urine Ketones Negative Urine Blood 1+ H Urine Nitrite Negative Urine Bilirubin Negative Urine Urobilinogen 4.0 e.u/dl H Ur Leukocyte Esterase Trace Urine WBC (Auto) 2 Urine RBC (Auto) 1 Ur Epithelial Cells Few Amorphous Urates 1+ Urine Bacteria Rare Stool Occult Blood Salicylates Opiates Screen Negative Methadone Screen Negative Acetaminophen Barbiturate Screen Negative Phencyclidine Screen Negative Ur Amphetamines Screen Negative MDMA (Ecstasy) Screen Negative Benzodiazepines Screen Negative Cocaine Screen Negative U Marijuana (THC) Screen Negative Acetone, Qual Anti-A Titer Blood Type Antibody Screen 05/11/18 05/11/18 05/11/18 20:30 20:30 20:30 WBC 13.2 H Corrected WBC (auto) RBC 2.59 L Hgb 9.6 L Hct 29.7 L MCV 114.4 H MCH 37.1 H MCHC 32.5 RDW 14.4 Plt Count 53 L D MPV 8.7 Absolute Neuts (auto) 11.7 H Neutrophils % 88.7 H Neutrophils % (Manual) 60.0 Band Neutrophils % 29.0 Lymphocytes % 6.1 L D Lymphocytes % (Manual) 8.0 Monocytes % 3.3 L Monocytes % (Manual) 2 L Eosinophils % 1.6 Eosinophils % (Manual) 0.0 Basophils % 0.3 Basophils % (Manual) 0.0 Myelocytes % (Man) Promyelocytes % (Man) Blast Cells % (Manual) Nucleated RBC % 1 H Metamyelocytes 1 D Differential Comment Hypochromia Platelet Estimate Decreased Platelet Comment No clumping noted Polychromasia Poikilocytosis Anisocytosis Microcytosis Macrocytosis 2+ PT with INR INR Puncture Site ABG pH ABG pCO2 at Pt Temp ABG pO2 at Pt Temp ABG HCO3 ABG O2 Sat (Measured) ABG O2 Content ABG Base Excess Baldo Test Carboxyhemoglobin Methemoglobin O2 Delivery Device Oxygen Flow Rate PEEP Sodium 139 Potassium 6.1 H* Chloride 104 Carbon Dioxide 7 L Anion Gap 28 H BUN 41 H Creatinine 3.3 H Creat Clearance w eGFR 14.51 POC Glucometer Random Glucose 88 Lactic Acid Calcium 6.9 L* Phosphorus Magnesium Total Bilirubin 8.8 H AST 1203 H ALT 366 H Alkaline Phosphatase 166 H Ammonia Creatine Kinase 249 H Creatine Kinase Index 2.9 CK-MB (CK-2) 7.2 H Troponin I Total Protein 6.3 L Albumin 2.6 L Triglycerides Lipase Urine Color Urine Appearance Urine pH Ur Specific Morganza Urine Protein Urine Glucose (UA) Urine Ketones Urine Blood Urine Nitrite Urine Bilirubin Urine Urobilinogen Ur Leukocyte Esterase Urine WBC (Auto) Urine RBC (Auto) Ur Epithelial Cells Amorphous Urates Urine Bacteria Stool Occult Blood Salicylates Opiates Screen Methadone Screen Acetaminophen Barbiturate Screen Phencyclidine Screen Ur Amphetamines Screen MDMA (Ecstasy) Screen Benzodiazepines Screen Cocaine Screen U Marijuana (THC) Screen Acetone, Qual Anti-A Titer Cancelled Blood Type Cancelled Antibody Screen Cancelled 05/11/18 05/11/18 05/11/18 20:30 20:30 20:40 WBC Corrected WBC (auto) RBC Hgb Hct MCV MCH MCHC RDW Plt Count MPV Absolute Neuts (auto) Neutrophils % Neutrophils % (Manual) Band Neutrophils % Lymphocytes % Lymphocytes % (Manual) Monocytes % Monocytes % (Manual) Eosinophils % Eosinophils % (Manual) Basophils % Basophils % (Manual) Myelocytes % (Man) Promyelocytes % (Man) Blast Cells % (Manual) Nucleated RBC % Metamyelocytes Differential Comment Hypochromia Platelet Estimate Platelet Comment Polychromasia Poikilocytosis Anisocytosis Microcytosis Macrocytosis PT with INR INR Puncture Site ABG pH ABG pCO2 at Pt Temp ABG pO2 at Pt Temp ABG HCO3 ABG O2 Sat (Measured) ABG O2 Content ABG Base Excess Baldo Test Carboxyhemoglobin Methemoglobin O2 Delivery Device Oxygen Flow Rate PEEP Sodium Potassium Chloride Carbon Dioxide Anion Gap BUN Creatinine Creat Clearance w eGFR POC Glucometer Random Glucose Lactic Acid 13.6 H* Calcium Phosphorus Magnesium Total Bilirubin AST ALT Alkaline Phosphatase Ammonia Creatine Kinase Creatine Kinase Index CK-MB (CK-2) Cancelled Troponin I Total Protein Albumin Triglycerides Lipase Urine Color Urine Appearance Urine pH Ur Specific Morgan[place] Urine Protein Urine Glucose (UA) Urine Ketones Urine Blood Urine Nitrite Urine Bilirubin Urine Urobilinogen Ur Leukocyte Esterase Urine WBC (Auto) Urine RBC (Auto) Ur Epithelial Cells Amorphous Urates Urine Bacteria Stool Occult Blood Salicylates Opiates Screen Methadone Screen Acetaminophen Barbiturate Screen Phencyclidine Screen Ur Amphetamines Screen MDMA (Ecstasy) Screen Benzodiazepines Screen Cocaine Screen U Marijuana (THC) Screen Acetone, Qual Positive small 1+ H Anti-A Titer Blood Type Antibody Screen 05/11/18 05/11/18 05/11/18 21:47 21:47 21:47 WBC Corrected WBC (auto) RBC Hgb Hct MCV MCH MCHC RDW Plt Count MPV Absolute Neuts (auto) Neutrophils % Neutrophils % (Manual) Band Neutrophils % Lymphocytes % Lymphocytes % (Manual) Monocytes % Monocytes % (Manual) Eosinophils % Eosinophils % (Manual) Basophils % Basophils % (Manual) Myelocytes % (Man) Promyelocytes % (Man) Blast Cells % (Manual) Nucleated RBC % Metamyelocytes Differential Comment Hypochromia Platelet Estimate Platelet Comment Polychromasia Poikilocytosis Anisocytosis Microcytosis Macrocytosis PT with INR INR Puncture Site ABG pH ABG pCO2 at Pt Temp ABG pO2 at Pt Temp ABG HCO3 ABG O2 Sat (Measured) ABG O2 Content ABG Base Excess Baldo Test Carboxyhemoglobin Methemoglobin O2 Delivery Device Oxygen Flow Rate PEEP Sodium 149 H Potassium 6.1 H* Chloride 115 H Carbon Dioxide 7 L Anion Gap 28 H BUN 40 H Creatinine 3.1 H Creat Clearance w eGFR 15.60 POC Glucometer 80.13651 Random Glucose 67 L Lactic Acid 14.2 H* Calcium 7.0 L Phosphorus Magnesium Total Bilirubin 8.3 H AST 1459 H ALT 434 H Alkaline Phosphatase 157 H Ammonia Creatine Kinase Creatine Kinase Index CK-MB (CK-2) Troponin I Total Protein 5.9 L Albumin 2.4 L Triglycerides Lipase Urine Color Urine Appearance Urine pH Ur Specific Morgan[place] Urine Protein Urine Glucose (UA) Urine Ketones Urine Blood Urine Nitrite Urine Bilirubin Urine Urobilinogen Ur Leukocyte Esterase Urine WBC (Auto) Urine RBC (Auto) Ur Epithelial Cells Amorphous Urates Urine Bacteria Stool Occult Blood Salicylates < 2.0 L Opiates Screen Methadone Screen Acetaminophen < 1.7 L Barbiturate Screen Phencyclidine Screen Ur Amphetamines Screen MDMA (Ecstasy) Screen Benzodiazepines Screen Cocaine Screen U Marijuana (THC) Screen Acetone, Qual Anti-A Titer Blood Type Antibody Screen 05/11/18 05/11/18 05/11/18 21:47 22:03 23:41 WBC Corrected WBC (auto) RBC Hgb Hct MCV MCH MCHC RDW Plt Count MPV Absolute Neuts (auto) Neutrophils % Neutrophils % (Manual) Band Neutrophils % Lymphocytes % Lymphocytes % (Manual) Monocytes % Monocytes % (Manual) Eosinophils % Eosinophils % (Manual) Basophils % Basophils % (Manual) Myelocytes % (Man) Promyelocytes % (Man) Blast Cells % (Manual) Nucleated RBC % Metamyelocytes Differential Comment Hypochromia Platelet Estimate Platelet Comment Polychromasia Poikilocytosis Anisocytosis Microcytosis Macrocytosis PT with INR INR Puncture Site Left brachial ABG pH 7.00 L* ABG pCO2 at Pt Temp 21.0 L ABG pO2 at Pt Temp 141.0 H ABG HCO3 4.9 L* ABG O2 Sat (Measured) 97.0 ABG O2 Content 11.7 L ABG Base Excess -24.8 L* Baldo Test Positive Carboxyhemoglobin 2.3 H Methemoglobin 0.7 O2 Delivery Device Nasal o2 Oxygen Flow Rate 2lpm PEEP 0.0 Sodium Potassium Chloride Carbon Dioxide Anion Gap BUN Creatinine Creat Clearance w eGFR POC Glucometer 195.46365 Random Glucose Lactic Acid Calcium Phosphorus 7.7 H Magnesium 1.8 Total Bilirubin AST ALT Alkaline Phosphatase Ammonia Creatine Kinase Creatine Kinase Index CK-MB (CK-2) Troponin I Total Protein Albumin Triglycerides 450 H Lipase Urine Color Urine Appearance Urine pH Ur Specific Morgan[place] Urine Protein Urine Glucose (UA) Urine Ketones Urine Blood Urine Nitrite Urine Bilirubin Urine Urobilinogen Ur Leukocyte Esterase Urine WBC (Auto) Urine RBC (Auto) Ur Epithelial Cells Amorphous Urates Urine Bacteria Stool Occult Blood Salicylates Opiates Screen Methadone Screen Acetaminophen Barbiturate Screen Phencyclidine Screen Ur Amphetamines Screen MDMA (Ecstasy) Screen Benzodiazepines Screen Cocaine Screen U Marijuana (THC) Screen Acetone, Qual Anti-A Titer Blood Type Antibody Screen 05/12/18 05/12/18 05/12/18 01:28 04:25 04:25 WBC 14.6 H Corrected WBC (auto) 12.07 RBC 2.31 L Hgb 8.6 L Hct 26.7 L MCV 115.8 H MCH 37.4 H MCHC 32.3 RDW 14.9 Plt Count 57 L MPV 8.7 Absolute Neuts (auto) 12.6 H Neutrophils % 86.2 H Neutrophils % (Manual) 84.2 H Band Neutrophils % 1.8 Lymphocytes % 9.5 D Lymphocytes % (Manual) 6.1 L D Monocytes % 1.4 L Monocytes % (Manual) 2 L Eosinophils % 2.0 Eosinophils % (Manual) 0.0 Basophils % 0.9 Basophils % (Manual) 2.6 H D Myelocytes % (Man) 2 D Promyelocytes % (Man) 0 Blast Cells % (Manual) 0 Nucleated RBC % 1 H Metamyelocytes 2 D Differential Comment Hypochromia 0 Platelet Estimate Decreased Platelet Comment Polychromasia 2+ Poikilocytosis 2+ Anisocytosis 2+ Microcytosis 2+ Macrocytosis 0 PT with INR INR Puncture Site ABG pH ABG pCO2 at Pt Temp ABG pO2 at Pt Temp ABG HCO3 ABG O2 Sat (Measured) ABG O2 Content ABG Base Excess Baldo Test Carboxyhemoglobin Methemoglobin O2 Delivery Device Oxygen Flow Rate PEEP Sodium 134 L Potassium 7.0 H* Chloride 105 Carbon Dioxide 6 L Anion Gap 23 H BUN 37 H Creatinine 3.1 H Creat Clearance w eGFR 15.60 POC Glucometer 102.96640 Random Glucose 142 H Lactic Acid Calcium 6.2 L* Phosphorus 5.9 H Magnesium 1.6 L Total Bilirubin 7.4 H AST 3609 H ALT 791 H Alkaline Phosphatase 149 H Ammonia Creatine Kinase Creatine Kinase Index CK-MB (CK-2) Troponin I Total Protein 5.6 L Albumin 2.2 L Triglycerides Lipase Urine Color Urine Appearance Urine pH Ur Specific [place] Urine Protein Urine Glucose (UA) Urine Ketones Urine Blood Urine Nitrite Urine Bilirubin Urine Urobilinogen Ur Leukocyte Esterase Urine WBC (Auto) Urine RBC (Auto) Ur Epithelial Cells Amorphous Urates Urine Bacteria Stool Occult Blood Salicylates Opiates Screen Methadone Screen Acetaminophen Barbiturate Screen Phencyclidine Screen Ur Amphetamines Screen MDMA (Ecstasy) Screen Benzodiazepines Screen Cocaine Screen U Marijuana (THC) Screen Acetone, Qual Anti-A Titer Blood Type Antibody Screen 05/12/18 04:25 WBC Corrected WBC (auto) RBC Hgb Hct MCV MCH MCHC RDW Plt Count MPV Absolute Neuts (auto) Neutrophils % Neutrophils % (Manual) Band Neutrophils % Lymphocytes % Lymphocytes % (Manual) Monocytes % Monocytes % (Manual) Eosinophils % Eosinophils % (Manual) Basophils % Basophils % (Manual) Myelocytes % (Man) Promyelocytes % (Man) Blast Cells % (Manual) Nucleated RBC % Metamyelocytes Differential Comment Hypochromia Platelet Estimate Platelet Comment Polychromasia Poikilocytosis Anisocytosis Microcytosis Macrocytosis PT with INR INR Puncture Site ABG pH ABG pCO2 at Pt Temp ABG pO2 at Pt Temp ABG HCO3 ABG O2 Sat (Measured) ABG O2 Content ABG Base Excess Baldo Test Carboxyhemoglobin Methemoglobin O2 Delivery Device Oxygen Flow Rate PEEP Sodium Potassium Chloride Carbon Dioxide Anion Gap BUN Creatinine Creat Clearance w eGFR POC Glucometer Random Glucose Lactic Acid 15.2 H* Calcium Phosphorus Magnesium Total Bilirubin AST ALT Alkaline Phosphatase Ammonia Creatine Kinase Creatine Kinase Index CK-MB (CK-2) Troponin I Total Protein Albumin Triglycerides Lipase Urine Color Urine Appearance Urine pH Ur Specific Morgan[place] Urine Protein Urine Glucose (UA) Urine Ketones Urine Blood Urine Nitrite Urine Bilirubin Urine Urobilinogen Ur Leukocyte Esterase Urine WBC (Auto) Urine RBC (Auto) Ur Epithelial Cells Amorphous Urates Urine Bacteria Stool Occult Blood Salicylates Opiates Screen Methadone Screen Acetaminophen Barbiturate Screen Phencyclidine Screen Ur Amphetamines Screen MDMA (Ecstasy) Screen Benzodiazepines Screen Cocaine Screen U Marijuana (THC) Screen Acetone, Qual Anti-A Titer Blood Type Antibody Screen Current Medications Generic Name Dose Route Start Last Admin Trade Name Freq PRN Reason Stop Dose Admin Chlorhexidine Gluconate 1 applic 05/12/18 22:00 Hibiclens For Decolonization - TP HS [place] Dextrose 25 gm 05/12/18 00:06 D50w (Vial) - IVPUSH PRN PRN HYPOGLYCEMIA Diphenhydramine HCl 50 mg 05/12/18 00:26 Benadryl Injection - IVPUSH Q4H PRN FOR ITCHING Lactated Ringer's 1,000 ml in 1,000 mls @ 150 mls/hr 05/12/18 00:15 05/12/18 01:29 Lactated Ringers Solution IV 150 mls/hr ASDIR [place] Administration Norepinephrine Bitartrate 8, 500 mls @ 18.75 mls/hr 05/12/18 04:00 000 mcg/ Dextrose IV TITR [place] Protocol 5 MCG/MIN Vasopressin 50 units/ Sodium 100 mls @ 4.8 mls/hr 05/12/18 05:30 Chloride IVPB ASDIR [place] Protocol 2.4 UNITS/HR Midazolam HCl 100 mg/ Sodium 100 mls @ 1 mls/hr 05/12/18 06:15 Chloride IVPB 05/13/18 06:14 TITR [place] Protocol 1 MG/HR Levothyroxine Sodium 50 mcg 05/12/18 10:00 Synthroid Injection - IVPUSH DAILY [place] Lorazepam 2 mg 05/12/18 00:25 Ativan Injection - IVPUSH Q4H PRN WITHDRAWAL(CONT SUBST) Mupirocin 1 applic 05/12/18 10:00 Bactroban Ointment (For Decolonization) - NS 05/17/18 09:59 BID [place] Ondansetron HCl 4 mg 05/12/18 00:27 Zofran Injection IVPUSH Q4H PRN NAUSEA AND/OR VOMITING Rifaximin 550 mg 05/11/18 22:00 05/11/18 23:49 Xifaxan - PO 550 mg BID [place] Administration Sodium Bicarbonate 50 meq 05/12/18 06:30 Sodium Bicarbonate 8.4% - IVPUSH Q1H [place] Imaging - Results Chest X-ray: Report Reviewed, Image Reviewed Cat Scan: Report Reviewed, Image Reviewed EKG: Image Reviewed Problem List - Problems (1) Severe sepsis with acute organ dysfunction Code(s): A41.9 - SEPSIS, UNSPECIFIED ORGANISM; R65.20 - SEVERE SEPSIS WITHOUT SEPTIC SHOCK (2) ARF (acute renal failure) Code(s): N17.9 - ACUTE KIDNEY FAILURE, UNSPECIFIED Qualifiers: Acute renal failure type: unspecified Qualified Code(s): N17.9 - Acute kidney failure, unspecified (3) Alcoholic ketoacidosis Code(s): E87.2 - ACIDOSIS (4) Hyperammonemia Code(s): E72.20 - DISORDER OF UREA CYCLE METABOLISM, UNSPECIFIED (5) Hyperkalemia Code(s): E87.5 - HYPERKALEMIA (6) Hepatic encephalopathy Code(s): K72.90 - HEPATIC FAILURE, UNSPECIFIED WITHOUT COMA (7) Hypoglycemia Code(s): E16.2 - HYPOGLYCEMIA, UNSPECIFIED (8) Hypotension Code(s): I95.9 - HYPOTENSION, UNSPECIFIED Qualifiers: Hypotension type: unspecified hypotension type Qualified Code(s): I95.9 - Hypotension, unspecified (9) Advanced cirrhosis of liver Code(s): K74.60 - UNSPECIFIED CIRRHOSIS OF LIVER (10) Hyperbilirubinemia Code(s): E80.6 - OTHER DISORDERS OF BILIRUBIN METABOLISM (11) Splenomegaly Code(s): R16.1 - SPLENOMEGALY, NOT ELSEWHERE CLASSIFIED (12) Thrombocytopenia Code(s): D69.6 - THROMBOCYTOPENIA, UNSPECIFIED (13) GERD (gastroesophageal reflux disease) Code(s): K21.9 - GASTRO-ESOPHAGEAL REFLUX DISEASE WITHOUT ESOPHAGITIS Qualifiers: (14) Hypothyroid Code(s): E03.9 - HYPOTHYROIDISM, UNSPECIFIED Qualifiers: Assessment/Plan This is a 57 y/o woman with a PMHx of Alcohol and Cocaine Abuse, Cirrhosis Liver , Pancreatitis, GERD, Hypothyroid, Thrombocytopenia. Admitted to ICU for Alcoholic Ketoacidosis, Severe Sepsis, Acute Renal Failure, Hyperkalemia, Hyperammonemia, for further evaluation of their emergent condition. Problems: 1. Alcoholic Ketoacidosis 2. Severe Sepsis 3. Acute Renal failure 4. Hyperkalemia 5. Hyperammonemia 6. Thrombocytopenia Plan: Will admit to ICU Cardiac Monitoring AG~ 32-23- likely due to Alcohol Ketoacidosis (AK) Lactic Acid~ 14.2-15.7 due to AK vs Severe Sepsis, will empirically treat Fluid Resuscitation 4L NS given in ED Would continue with D5NS Monitor BMP closely ABG showed Metabolic Acidosis 7.0/21/141/4.9/97 Bicarb given in ICU Repeat ABG, concern maintain airway Thiamine IV given K~6.5 EKG- Peaked T Waves Hyperkalemia Protocol given in ED Will monitor K closely and treat accordingly Appreciate Infection Control Coordinator consult Appreciate ID consult Appreciate GI consult Appreciate Renal consult Zimmerman Strict INOs O2 Aspiration Precautions Fall Precautions Seizure Precautions FEN- D5NS@100ml/hr, Replete lytes prn, NPO DVT ppx- SCD, Hold AC secondary to Thrombocytopenia Code Status: Full Code Dispo: Requires Inpatient Care Visit type - Emergency Visit Emergency Visit: Yes ED Registration Date: 05/11/18 Care time: The patient presented to the Emergency Department on the above date and was hospitalized for further evaluation of their emergent condition. - New Patient This patient is new to me today: Yes Date on this admission: 05/12/18 - Critical Care Critical Care patient: Yes Total Critical Care Time (in minutes): 75 Critical Care Statement: The care of this patient involved high complexity decision making to prevent further life threatening deterioration of the patient 's condition and/or to evaluate & treat vital organ system(s) failure or risk of failure.
[2018-05-12] MEDS ORDERED: DOPAMINE 400 MG/D5W - 400,000 MCG/250 ML INFUS.BAG IVPB SCH (01:15)
[2018-05-12] MEDS ORDERED: PHENYLEPHRINE HCL 10,000 MCG in DEXTROSE 5%-WATER - 499 ML IV SCH (01:15)
[2018-05-12 01:20] LABS: MAGNESIUM 1.8 mg/dL (1.8-2.4); PHOSPHOROUS 7.7 mg/dL (2.5-4.9)
[2018-05-12] MEDS ORDERED: HEMOQUE TEST 1 EACH EACH ONE (01:26)
[2018-05-12] MEDS ORDERED: PHENYLEPHRINE HCL 10 MG/1 ML SINGLE DOSE VIAL ONE (03:13)
[2018-05-12] MEDS ORDERED: NOREPINEPHRINE BITARTRATE 4 MG/4 ML ML IV ONE ×4 (03:53→22:14)
[2018-05-12 04:05] VITALS: BMI 31.3
[2018-05-12 04:36] LABS: BASO % 0.9 % (0-2.0); HEMATOCRIT 26.7 % (32.4-45.2); HEMOGLOBIN 8.6 GM/dL (10.7-15.3); LYMPH % 9.5 % (8-40); MCH 37.4 pg (25.7-33.7); MCHC 32.3 g/dl (32.0-36.0); MEAN CELL VOLUME 115.8 fl (80-96); MEAN PLT VOLUME 8.7 fl (7.5-11.1); MONO % 1.4 % (3.8-10.2); NEUT % 86.2 % (42.8-82.8); PLATELET COUNT 57 K/MM3 (134-434); RBC 2.31 M/mm3 (3.60-5.2); RDW 14.9 % (11.6-15.6); WHITE BLOOD COUNT 14.6 K/mm3 (4.0-10.0)
[2018-05-12] MEDS ORDERED: VASOPRESSIN 20 UNITS/ML VIAL IV ONE ×2 (05:29→11:29)
[2018-05-12] MEDS ORDERED: DEXTROSE 50%-WATER - 25 GM/50 ML VIAL ONE (05:35)
[2018-05-12] MEDS ORDERED: SODIUM BICARBONATE 8.4% 50 MEQ/50 ML VIAL ONE ×2 (05:36→06:25)
[2018-05-12] MEDS ORDERED: ALBUTEROL SO4 0.083% IH SOL 2.5 MG/3 ML VIAL.NEB. NEB ONE ×2 (05:45→08:18)
[2018-05-12] MEDS ORDERED: SODIUM BICARBONATE 8.4% 50 MEQ/50 ML DISP.SYRIN IVPUSH ONE ×3 (05:45→07:48)
[2018-05-12] MEDS ORDERED: CALCIUM GLUCONATE 10% - 1,000 MG/10 ML VIAL IVPUSH ONE ×2 (05:45→06:15)
[2018-05-12] MEDS ORDERED: INSULIN REGULAR HUMAN 100 UNITS/ML *VIAL IVPUSH ONE ×3 (05:45→08:16)
--- NOTE | 2018-05-12 05:46 | RAPID ---
Physical Examination Vital Signs: Vital Signs BP 75/57 HR 125 Labs: CBC, BMP 05/12/18 04:25 Rapid Response - Rapid Response Assessment: Rapid response called overhead. Pt seen to have reported worsening mental status and Kussmaul respirations. Pt not a candidate for bi-level PAP. Anesthesia also paged overhead for intubation due to need of airway protection. Pt successfully intubated. CXR ordered to confirm placement.
[2018-05-12] MEDS ORDERED: SUCCINYLCHOLINE CHLORIDE 200 MG/10 ML VIAL ONE (05:47)
[2018-05-12] MEDS ORDERED: ETOMIDATE 20 MG/10 ML AMPUL IVPUSH ONE (05:48)
[2018-05-12 05:53] LABS: ALBUMIN 2.2 g/dl (3.4-5.0); ALK PHOS 149 U/L (45-117); ANION GAP 23 MMOL/L (8-16); BILIRUBIN,TOTAL 7.4 mg/dL (0.2-1); BLOOD UREA NITROGEN 37 mg/dL (7-18); CHLORIDE 105 mmol/L (98-107); CO2 6 mmol/L (21-32); CREATININE 3.1 mg/dL (0.55-1.3); GLUCOSE,RANDOM 142 mg/dL (74-106); MAGNESIUM 1.6 mg/dL (1.8-2.4); PHOSPHOROUS 5.9 mg/dL (2.5-4.9); SGPT/ALT 791 U/L (13-61); SODIUM 134 mmol/L (136-145); TOT PROT 5.6 g/dl (6.4-8.2)
[2018-05-12 05:55] LABS: CALCIUM 6.2 mg/dL (8.5-10.1)
[2018-05-12] MEDS ORDERED: LACTATED RINGERS SOLUTION 1000 ML INFUS.BAG IV ONE (06:00)
[2018-05-12] MEDS ORDERED: DEXTROSE 50%-WATER 25 GM/50 ML DISP.SYRIN ONE ×2 (06:02→08:25)
[2018-05-12] MEDS ORDERED: CALCIUM GLUCONATE 10% - 1,000 MG/10 ML VIAL ONE (06:02)
--- NOTE | 2018-05-12 06:06 | PN ---
Progress Note (short form) - Note Progress Note: Called stat to intubate this patient who is hypotensive and k is 6.1 with wide qrs complex.She not awake and is not responsive.Gave Etomidate 12mg and [id number] Iv.Dl with MAC 4.VCV ETT .Posative Etco2 BS R#L.P126 BP 81/45 and Spo2 100% on O2 100.Advise ABG and CXR.
[2018-05-12 06:12] LABS: ANISOCYTOSIS 2+; CORRECTED WBC 12.07 K/mm3; MACROCYTOSIS 0; PLATELET ESTIMATE DECREASED
[2018-05-12 06:14] LABS: SGOT/AST 3609 U/L (15-37)
[2018-05-12] MEDS ORDERED: MIDAZOLAM 100 MG in SODIUM CHLORIDE 100 ML IVPB SCH (06:15)
[2018-05-12] MEDS ORDERED: SODIUM POLYSTYRENE SULFONATE 15 GM/60 ML BOTTLE RC ONE (06:15)
[2018-05-12] MEDS: NOREPINEPHRINE BITARTRATE 8,000 MCG in DEXTROSE 5%-WATER - 492 ML IV SCH ×3 (06:22→16:24)
[2018-05-12] MEDS: VASOPRESSIN 50 UNITS in SODIUM CHLORIDE 97.5 ML IVPB SCH ×2 (06:22→12:24)
[2018-05-12] MEDS: SODIUM BICARBONATE 8.4% 50 MEQ/50 ML DISP.SYRIN IVPUSH SCH ×2 (06:29→07:30)
[2018-05-12] MEDS: ALBUTEROL SO4 0.083% IH SOL 2.5 MG/3 ML VIAL.NEB. NEB SCH ×2 (06:36→06:37)
[2018-05-12 07:00] LABS: ARTERIAL BLOOD GAS BASE EXCESS -24.8 meq/l (-2-2)
[2018-05-12 07:01] LABS: ALLENS TEST POSITIVE
[2018-05-12 07:02] LABS: ARTERIAL BLOOD GAS PCO2 29.5 mmHg (35-45); ARTERIAL BLOOD GAS pH 6.93 (7.35-7.45)
[2018-05-12 07:22] LABS: INR 2.21 (0.83-1.09); PROTHROMBIN TIME (PATIENT) 26.3 SEC (9.7-13.0)
[2018-05-12] MEDS ORDERED: MAGNESIUM SULF 50% (8.12 MEQ/2 ML-1 GM VIAL) ONE (08:11)
[2018-05-12] MEDS ORDERED: DEXTROSE 50%-WATER - 25 GM/50 ML VIAL IVPUSH ONE (08:17)
[2018-05-12] MEDS ORDERED: CALCIUM GLUCONATE 10% - 1,000 MG/10 ML VIAL IVPB ONE (08:30)
[2018-05-12] MEDS ORDERED: VANCOMYCIN 1 GRAM (PRE-DOCKED) 1,000 MG/250 ML BAG IVPB ONE (08:30)
[2018-05-12] MEDS ORDERED: MAGNESIUM 2GM/50ML STERILE WATER IVPB IVPB ONE (08:30)
[2018-05-12] MEDS ORDERED: PIPERACILLIN/TAZOB 3.375 GM 3.375 GM in DEXTROSE 5%-WATER - 50 ML IVPB ONE (08:30)
[2018-05-12] MEDS ORDERED: DEXTROSE 5%-WATER - 50 ML IVPB ONE ×2 (08:52→15:34)
[2018-05-12] MEDS ORDERED: PIPERACILLIN/TAZOBACTAM 3.375 GM VIAL IVPB ONE (08:52)
[2018-05-12] MEDS ORDERED: DEXTROSE 5%-WATER - 1,000 ML with SODIUM BICARBONATE 8.4% - 150 MEQ IV SCH (09:00)
[2018-05-12] MEDS ORDERED: SODIUM BICARBONATE 8.4% - 150 MEQ in DEXTROSE 5%-WATER - 1,000 ML IV SCH ×2 (09:00→19:39)
[2018-05-12] MEDS ORDERED: SODIUM CHLORIDE 250 ML IV PRN (09:45)
--- NOTE | 2018-05-12 09:51 | CONSULT ---
Consult Consult Specialty:: Nephrology Reason for Consultation:: LILIA and hyperkalemia - History of Present Illness Chief Complaint: nausea and vomiting History of Present Illness: Pt is a 57 year old female with pmhx of etoh abuse, polysubstance abuse, and liver disease who presents to the ER with nuasea and vomiting. Pt also had increased falls. She is unable to give history at this point. I spoke to the medical and her family for history. She has been binge drinking for the last four days. She has has increase etoh consumption over the last few months. Her boyfriend has been trying to get her to go to rehab however she has been refusing. Devonte De Souza asked me to call her sister Felicia and discuss the care with her [phone]. Felicia said that she was well aware of the drinking problem. Pt was found to be hyperkalemia and acidotic. She did not respond to medical therapy and fluids. I discussed dialysis therapy with both her boyfriend and her sister and they agree. I also discussed that her prognosis is poor at this point based in her labs. She has been drinking vodka daily, she did not drink methanol or ethylene glycol or any other alcohol. Pt is not intubated in the ICU. - History Source History Provided By: Family Member, Medical Record - Past Medical History Gastrointestinal: Yes: GERD, Pancreatitis (recurrent) Hepatobiliary: Yes: Cirrhosis (possible) ...LMP: 08/01/12 Psych: Yes: Addictions Endocrine: Yes: Hypothyroidism - Past Surgical History Past Surgical History: Yes: - Alcohol/Substance Use Hx Alcohol Use: Yes Number of Drinks Daily: 2 (pints) History of Substance Use: reports: Cocaine (4 weeks ago) - Smoking History Smoking history: Never smoked Have you smoked in the past 12 months: No Aproximately how many cigarettes per day: 0 - Social History ADL: Independent 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 History of Recent Travel: No Home Medications - Allergies Allergies/Adverse Reactions: Allergies Allergy/AdvReac Type Severity Reaction Status Date / Time lamotrigine [From Lamictal] Allergy Verified 03/17/18 11:16 lorazepam [From Ativan] Allergy Rash Verified 03/17/18 11:16 - Home Medications Home Medications: Ambulatory Orders RX: Folic Acid 1 mg PO DAILY #30 tablet 11/27/17 RX: Levothyroxine [Synthroid -] 100 mcg PO DAILY@0700 #30 tablet 11/27/17 RX: Magnesium Oxide [Mag-Ox -] 400 mg PO BID #60 tablet 11/27/17 RX: Thiamine HCl [Vitamin B1 -] 100 mg PO HS #30 tablet 11/27/17 RX: Lactulose (Oral Use) [Cephulac -] 20 gm PO TID udc 12/23/17 RX: Vitamins (Sjr) - 1 tab PO DAILY tablet 12/23/17 RX: Pantoprazole Sodium [Protonix -] 40 mg PO DAILY 05/11/18 Family Disease History - Family Disease History Family Disease History: Diabetes: Father (etoh), Heart Disease: Mother (anxiety, triple bypass, aortic repair), Other: Father Review of Systems Unable to obtain ROS, reason: pt intubated Physical Exam Vital Signs: Vital Signs Temperature 97.6 F 05/12/18 08:00 Pulse Rate 96 H 05/12/18 08:00 Respiratory Rate 14 05/12/18 08:43 Blood Pressure 129/57 L 05/12/18 08:00 O2 Sat by Pulse Oximetry (%) 100 05/12/18 06:51 Constitutional: Yes: Mild Distress Eyes: Yes: Sclera Icterus HENT: Yes: Epistaxis Cardiovascular: Yes: Tachycardia, S1, S2 Respiratory: Yes: Mechanically Ventilated Gastrointestinal: Yes: Soft, Abdomen, Obese, Other (unable to appreciated bowel sounds) Renal/: Yes: Zimmerman Present, Oliguria Musculoskeletal: Yes: Muscle Weakness Edema: No Integumentary: Yes: Bruising Neurological: Yes: Lethargy Labs: CBC, BMP 05/12/18 04:25 Laboratory Tests 05/11/18 05/11/18 05/11/18 16:35 16:47 20:30 WBC Hgb Plt Count Sodium Potassium 6.5 H* 6.1 H* Carbon Dioxide Creatinine Lactic Acid Stool Occult Blood Negative Salicylates Acetaminophen 05/11/18 05/12/18 05/12/18 21:47 04:25 04:25 WBC 14.6 H Hgb 8.6 L Plt Count 57 L Sodium 134 L Potassium 6.1 H* 7.0 H* Carbon Dioxide 6 L Creatinine 3.1 H Lactic Acid Stool Occult Blood Salicylates < 2.0 L Acetaminophen < 1.7 L 05/12/18 04:25 WBC Hgb Plt Count Sodium Potassium Carbon Dioxide Creatinine Lactic Acid 15.2 H* Stool Occult Blood Salicylates Acetaminophen Imaging - Results Chest X-ray: Report Reviewed Cat Scan: Report Reviewed Problem List - Problems (1) ARF (acute renal failure) Code(s): N17.9 - ACUTE KIDNEY FAILURE, UNSPECIFIED Qualifiers: Acute renal failure type: unspecified Qualified Code(s): N17.9 - Acute kidney failure, unspecified (2) Hyperkalemia Code(s): E87.5 - HYPERKALEMIA (3) Hypotension Code(s): I95.9 - HYPOTENSION, UNSPECIFIED Qualifiers: Hypotension type: unspecified hypotension type Qualified Code(s): I95.9 - Hypotension, unspecified Assessment/Plan Current Medications Generic Name Dose Route Start Last Admin Trade Name Freq PRN Reason Stop Dose Admin Chlorhexidine Gluconate 1 applic 05/12/18 22:00 Hibiclens For Decolonization - TP HS [place] Dextrose 25 gm 05/12/18 00:06 D50w (Vial) - IVPUSH PRN PRN HYPOGLYCEMIA Diphenhydramine HCl 50 mg 05/12/18 00:26 Benadryl Injection - IVPUSH Q4H PRN FOR ITCHING Norepinephrine Bitartrate 8, 500 mls @ 18.75 mls/hr 05/12/18 04:00 05/12/18 06:22 000 mcg/ Dextrose IV 30 mcg/min TITR [place] 112.5 mls/hr Administration Protocol 5 MCG/MIN Vasopressin 50 units/ Sodium 100 mls @ 4.8 mls/hr 05/12/18 05:30 05/12/18 06: 22 Chloride IVPB 6 units/hr ASDIR [place] 12 mls/hr Administration Protocol 2.4 UNITS/HR Midazolam HCl 100 mg/ Sodium 100 mls @ 1 mls/hr 05/12/18 06:15 05/12/18 06:24 Chloride IVPB 05/13/18 06:14 5 mg/hr TITR [place] 5 mls/hr Administration Protocol 1 MG/HR Vancomycin HCl 1,000 mg in 250 mls @ 166.667 mls/hr 05/12/18 08:30 05/12/18 09:13 Vancomycin (Pre-Docked) IVPB 05/12/18 09:59 166.667 mls/hr ONCE ONE Administration Protocol Sodium Chloride 250 mls @ 3,000 mls/hr 05/12/18 09:45 Normal Saline - IV 05/13/18 09:44 PRN PRN Hypotension during Dialysis Sodium Bicarbonate 150 meq/ 1,150 mls @ 100 mls/hr 05/12/18 09:00 Dextrose IV Q11H [facility] Levothyroxine Sodium 50 mcg 05/12/18 10:00 Synthroid Injection - IVPUSH DAILY [facility] Lorazepam 2 mg 05/12/18 00:25 Ativan Injection - IVPUSH Q4H PRN WITHDRAWAL(CONT SUBST) Mupirocin 1 applic 05/12/18 10:00 Bactroban Ointment (For Decolonization) - NS 05/17/18 09:59 BID [facility] Ondansetron HCl 4 mg 05/12/18 00:27 Zofran Injection IVPUSH Q4H PRN NAUSEA AND/OR VOMITING Pantoprazole Sodium 40 mg 05/12/18 10:00 Protonix Iv IVPUSH DAILY [facility] Rifaximin 550 mg 05/11/18 22:00 05/11/18 23:49 Xifaxan - PO 550 mg BID [facility] Administration Impression 1. LILIA 2. hyperkalemia 3. respiratory failure s/p intubation 4. etoh abuse 5. hx polysubstance abuse 6. hypothyroidism 7. liver cirrhosis 8. lactic acidosis 9. metabolic acidosos 10. shock 11. r/o sepsis 12. anemia 13. thrombocytopenia 14. pancreatitits Plan - called and discussed treatment options with boyfriend Devonte Kim [phone] and sister Felicia [phone]. They both agree with dialysis therapy. Risks associated with dialysis explained in detail to family, they understand and agree. Boyfriend Devonte De Souza is the person who has been giving consent as they live together. 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
[2018-05-12 10:06] LABS: BASO % 0.3 % (0-2.0); EOS % 2.3 % (0-4.5); HEMATOCRIT 25.8 % (32.4-45.2); HEMOGLOBIN 8.4 GM/dL (10.7-15.3); LYMPH % 10.8 % (8-40); MCHC 32.6 g/dl (32.0-36.0); MEAN CELL VOLUME 116.6 fl (80-96); MEAN PLT VOLUME 8.9 fl (7.5-11.1); MONO % 1.7 % (3.8-10.2); NEUT % 84.9 % (42.8-82.8); PLATELET COUNT 43 K/MM3 (134-434); RBC 2.22 M/mm3 (3.60-5.2); RDW 14.9 % (11.6-15.6); WHITE BLOOD COUNT 12.8 K/mm3 (4.0-10.0)
[2018-05-12 10:44] LABS: ALBUMIN 2.1 g/dl (3.4-5.0); ALK PHOS 154 U/L (45-117); ANION GAP 25 MMOL/L (8-16); BILIRUBIN,TOTAL 7.9 mg/dL (0.2-1); BLOOD UREA NITROGEN 37 mg/dL (7-18); CHLORIDE 102 mmol/L (98-107); CO2 7 mmol/L (21-32); CREATININE 3.2 mg/dL (0.55-1.3); GLUCOSE,RANDOM 283 mg/dL (74-106); PHOSPHOROUS 4.6 mg/dL (2.5-4.9); POTASSIUM 5.8 mmol/L (3.5-5.1); SGOT/AST 5871 U/L (15-37); SGPT/ALT 1385 U/L (13-61); SODIUM 135 mmol/L (136-145); TOT PROT 5.4 g/dl (6.4-8.2)
[2018-05-12 10:52] LABS: CALCIUM 6.8 mg/dL (8.5-10.1)
[2018-05-12] MEDS: RIFAXIMIN 550 MG TABLET (UD) PO SCH ×2 (10:52→21:23)
[2018-05-12] MEDS: PANTOPRAZOLE SODIUM 40 MG VIAL IVPUSH SCH (10:56)
[2018-05-12] MEDS ORDERED: PT OWN MED DRAWER 7, Y5N ONE ×3 (11:00→12:32)
[2018-05-12 11:45] LABS: ANISOCYTOSIS 1+; MACROCYTOSIS 1+; PLATELET ESTIMATE DECREASED
[2018-05-12] MEDS ORDERED: MAGNESIUM SULF 50% (8.12 MEQ/2 ML-1 GM VIAL) IVPB ONE (11:50)
--- NOTE | 2018-05-12 12:23 | PN ---
Teaching Attending Note Name of Resident: Wilmar Holland ATTENDING PHYSICIAN STATEMENT I saw and evaluated the patient. I reviewed the resident's note and discussed the case with the resident. I agree with the resident's findings and plan as documented. SUBJECTIVE: Pt seen and examined in the ICU. Intubated, sedated with severe acidosis and hyperkalemia on levophed and vasopressin gtts. HD catheter emergently placed and started on HD. OBJECTIVE: Vital Signs Period Temp Pulse Resp BP Sys/Aguero Pulse Ox Last 24 Hr 94.3 F-98.3 F 84-150 14-30 72-129/34-95 92-100 Intake & Output 05/09/18 05/10/18 05/11/18 05/12/18 23:59 23:59 23:59 23:59 Intake Total 3000 6237 Output Total 100 25 Balance 2900 6212 Weight 81.647 kg 87.997 kg Gen: intubated, sedated Heart: RRR Lung: scattered rhonchi Abd: soft, nontender Ext: no edema CBC, BMP 05/12/18 09:10 05/12/18 06:45 Active Medications Chlorhexidine Gluconate (Hibiclens For Decolonization -) 1 applic TP HS [place] Dextrose (D50w (Vial) -) 25 gm IVPUSH PRN PRN PRN Reason: HYPOGLYCEMIA Diphenhydramine HCl (Benadryl Injection -) 50 mg IVPUSH Q4H PRN PRN Reason: FOR ITCHING Norepinephrine Bitartrate 8, (000 mcg/ Dextrose) 500 mls @ 18.75 mls/hr IV TITR [place]; Protocol Last Admin: 05/12/18 10:54 Dose: 25 mcg/min, 93.75 mls/hr Vasopressin 50 units/ Sodium (Chloride) 100 mls @ 4.8 mls/hr IVPB ASDIR [place]; Protocol Last Admin: 05/12/18 06:22 Dose: 6 units/hr, 12 mls/hr Midazolam HCl 100 mg/ Sodium (Chloride) 100 mls @ 1 mls/hr IVPB TITR [place]; Protocol Stop: 05/13/18 06:14 Last Admin: 05/12/18 06:24 Dose: 5 mg/hr, 5 mls/hr Sodium Chloride (Normal Saline -) 250 mls @ 3,000 mls/hr IV PRN PRN PRN Reason: Hypotension during Dialysis Stop: 05/13/18 09:44 Sodium Bicarbonate 150 meq/ (Dextrose) 1,150 mls @ 100 mls/hr IV Q11H [facility] Last Admin: 05/12/18 09:00 Dose: 100 mls/hr Levothyroxine Sodium (Synthroid Injection -) 50 mcg IVPUSH DAILY [facility] Mupirocin (Bactroban Ointment (For Decolonization) -) 1 applic NS BID [facility] Stop: 05/17/18 09:59 Ondansetron HCl (Zofran Injection) 4 mg IVPUSH Q4H PRN PRN Reason: NAUSEA AND/OR VOMITING Pantoprazole Sodium (Protonix Iv) 40 mg IVPUSH DAILY [facility] Last Admin: 05/12/18 10:56 Dose: 40 mg Rifaximin (Xifaxan -) 550 mg PO BID [facility] Last Admin: 05/12/18 10:52 Dose: Not Given ASSESSMENT AND PLAN: Acute Respiratory Failure r/o Pneumonia r/o Acute Pancreatitis Shock - r/o Septic Severe Metabolic Acidosis Acute Kidney Injury Hyperkalemia Lactic Acidosis Liver Cirrhosis Alcohol Abuse Thrombocytopenia Coagulopathy Anemia - continue empiric antibiotics - f/u cultures - IVF to keep CVP 8-12 - titrate pressors to maintain MAP >65 - HD per renal - monitor urine output, creatinine - monitor lytes - trend lactate - monitor lipase - add on alcohol level and serum osm to admission labs - transfuse FFP, platelets - monitor CBC, coags, fibrinogen - echocardiogram - sedate for vent synchrony - DVT/GI prophylaxis - prognosis guarded critical care time spent in reviewing chart, evaluating patient and formulating plan 35 min
--- NOTE | 2018-05-12 12:33 | EKG ---
Test Reason : Blood Pressure : / mmHG Vent. Rate : 094 BPM Atrial Rate : 092 BPM P-R Int : 000 ms QRS Dur : 122 ms QT Int : 390 ms P-R-T Axes : 000 084 037 degrees QTc Int : 487 ms UNDETERMINED RHYTHM NON-SPECIFIC INTRA-VENTRICULAR CONDUCTION DELAY NONSPECIFIC ST ABNORMALITY ABNORMAL ECG Confirmed by MD MARCIAL, LORRAINE ([id number]) on 05/12/2018 12:33:12 PM Referred By: Confirmed By:LORRAINE CEJA MD
[2018-05-12] MEDS: LEVOTHYROXINE SODIUM 100 MCG VIAL IVPUSH SCH (12:34)
--- NOTE | 2018-05-12 13:08 | EKG ---
Test Reason : Blood Pressure : / mmHG Vent. Rate : 094 BPM Atrial Rate : 094 BPM P-R Int : 000 ms QRS Dur : 124 ms QT Int : 420 ms P-R-T Axes : 005 081 052 degrees QTc Int : 525 ms NORMAL SINUS RHYTHM NON-SPECIFIC INTRA-VENTRICULAR CONDUCTION DELAY Peaked T waves, rule out hyperkalemia. BORDERLINE ECG WHEN COMPARED WITH ECG OF 11-MAY-2018 17:25, SINUS RHYTHM HAS REPLACED WIDE QRS RHYTHM Confirmed by MD TALITA, VAIBHAV ([id number]) on 05/12/2018 1:08:19 PM Referred By: Confirmed By:VAIBHAV SANON MD
--- NOTE | 2018-05-12 13:09 | EKG ---
Test Reason : Blood Pressure : / mmHG Vent. Rate : 103 BPM Atrial Rate : 103 BPM P-R Int : 000 ms QRS Dur : 132 ms QT Int : 418 ms P-R-T Axes : 000 064 043 degrees QTc Int : 547 ms WIDE QRS RHYTHM WITH OCCASIONAL PREMATURE VENTRICULAR COMPLEXES NON-SPECIFIC INTRA-VENTRICULAR CONDUCTION BLOCK Peaked T waves, rule out hyperkalemia. ABNORMAL ECG WHEN COMPARED WITH ECG OF 17-MAR-2018 11:36, WIDE QRS RHYTHM HAS REPLACED SINUS RHYTHM VENT. RATE HAS INCREASED BY 42 BPM Confirmed by MD TALITA, VAIBHAV ([id number]) on 05/12/2018 1:08:50 PM Referred By: Confirmed By:VAIBHAV SANON MD
--- NOTE | 2018-05-12 13:15 | PROC ---
<Giuliana Quevedo - Last Filed: 05/12/18 13:13> Central Line Insertion Indication: Vasopressor, Other Risks and Benefits Explained: No (for emergent HD) Consent on Chart: Yes (sister consented) Central Line: Dialysis Cath, Tri Lumen Anesthesia: 1% Lidocaine Sterile Technique: Yes Ultrasound Guided Assistance: Yes Position: Left Femoral Sterile Dressing Applied: Yes <Alonso Quigley MD - Last Filed: 05/12/18 13:23> Procedure Note Procedure: I supervised and was present during the entire procedure. Alonso Quigley MD
[2018-05-12 13:39] LABS: ALBUMIN 2.3 g/dl (3.4-5.0); ALK PHOS 158 U/L (45-117); ANION GAP 21 MMOL/L (8-16); BLOOD UREA NITROGEN 28 mg/dL (7-18); CALCIUM 7.3 mg/dL (8.5-10.1); CHLORIDE 103 mmol/L (98-107); CO2 12 mmol/L (21-32); CREATININE 2.4 mg/dL (0.55-1.3); GLUCOSE,RANDOM 272 mg/dL (74-106); POTASSIUM 4.6 mmol/L (3.5-5.1); SGOT/AST 7574 U/L (15-37); SGPT/ALT 1718 U/L (13-61); SODIUM 137 mmol/L (136-145); TOT PROT 5.6 g/dl (6.4-8.2)
--- NOTE | 2018-05-12 14:02 | PN ---
Physical Exam: SUBJECTIVE: Patient seen and examined. Pt. unable to answer questions as she is sedated, intubated and non-responsive to verbal or tactile stimuli. Pt. was found to have large BM this morning that was maroon colored. This afternoon, Pt. had another large maroon colored BM, with continued dark colored blood oozing from mouth. OBJECTIVE: Vital Signs Period Temp Pulse Resp BP Sys/Aguero Pulse Ox Last 24 Hr 94.3 F-98.3 F 84-150 14-92 72-129/34-95 92-100 GENERAL: The patient is sedated and intubated, unresponsive to verbal or tactile stimuli HEAD: Normal with no signs of gross trauma. EYES: PERRL, sclera icteric, edematous sclera. No ptosis. ENT: Ears normal, nares patent, oropharynx oozing dark colored blood, no carotid bruit, moist mucous membranes. LUNGS: Mechanical ventilation, decreased breath sounds diffusely HEART: Regular rate and rhythm, S1, S2 ABDOMEN: Soft, nondistended, hypoactive bowel sounds, no guarding, no rebound EXTREMITIES: 2+ dorsal pedal pulses, warm, well-perfused, no edema, 2 <sec. capillary refill SKIN: Warm, dry, normal turgor, 8cm x 8cm ecchymosis on upper left anterior thorax, Nurse endorses ecchymosiss on back, I was unable to confirm at that time Laboratory Results - last 24 hr 05/11/18 05/11/18 05/11/18 16:35 16:35 16:35 WBC 15.3 H Corrected WBC (auto) RBC 2.98 L Hgb 11.1 Hct 33.5 MCV 112.4 H D MCH 37.3 H MCHC 33.2 RDW 14.4 D Plt Count 77 L D MPV 8.3 Absolute Neuts (auto) 14.0 H Neutrophils % 91.2 H D Neutrophils % (Manual) 59.0 Band Neutrophils % 21.0 Lymphocytes % 3.9 L D Lymphocytes % (Manual) 9.0 D Monocytes % 2.8 L Monocytes % (Manual) 3 L Eosinophils % 0.9 Eosinophils % (Manual) 0.0 D Basophils % 1.2 Basophils % (Manual) 0.0 Myelocytes % (Man) Promyelocytes % (Man) Blast Cells % (Manual) Nucleated RBC % 1 H Metamyelocytes 8 H D Differential Comment Hypochromia Platelet Estimate Decreased Platelet Comment No clumping noted Polychromasia Poikilocytosis Anisocytosis Microcytosis Macrocytosis 2+ PT with INR INR Puncture Site ABG pH ABG pCO2 at Pt Temp ABG pO2 at Pt Temp ABG HCO3 ABG O2 Sat (Measured) ABG O2 Content ABG Base Excess Baldo Test Carboxyhemoglobin Methemoglobin O2 Delivery Device Oxygen Flow Rate Vent Mode Vent Rate Mechanical Rate PEEP Pressure Support Vent Sodium 135 L Potassium 6.5 H* Chloride 95 L Carbon Dioxide 8 L Anion Gap 32 H BUN 41 H Creatinine 3.3 H Creat Clearance w eGFR 14.51 POC Glucometer Random Glucose 68 L Serum Osmolality Lactic Acid Calcium 8.1 L Phosphorus Magnesium Total Bilirubin 10.0 H AST 280 H ALT 82 H Alkaline Phosphatase 192 H Ammonia 497.20 H Creatine Kinase 145 Creatine Kinase Index CK-MB (CK-2) Troponin I < 0.02 Total Protein 7.7 Albumin 3.0 L Triglycerides Lipase 701 H Urine Color Urine Appearance Urine pH Ur Specific [place] Urine Protein Urine Glucose (UA) Urine Ketones Urine Blood Urine Nitrite Urine Bilirubin Urine Urobilinogen Ur Leukocyte Esterase Urine WBC (Auto) Urine RBC (Auto) Ur Epithelial Cells Amorphous Urates Urine Bacteria Stool Occult Blood Salicylates Opiates Screen Methadone Screen Acetaminophen Barbiturate Screen Phencyclidine Screen Ur Amphetamines Screen MDMA (Ecstasy) Screen Benzodiazepines Screen Cocaine Screen U Marijuana (THC) Screen Acetone, Qual Anti-A Titer Blood Type Antibody Screen Crossmatch 05/11/18 05/11/18 05/11/18 16:47 16:48 16:52 WBC Corrected WBC (auto) RBC Hgb Hct MCV MCH MCHC RDW Plt Count MPV Absolute Neuts (auto) Neutrophils % Neutrophils % (Manual) Band Neutrophils % Lymphocytes % Lymphocytes % (Manual) Monocytes % Monocytes % (Manual) Eosinophils % Eosinophils % (Manual) Basophils % Basophils % (Manual) Myelocytes % (Man) Promyelocytes % (Man) Blast Cells % (Manual) Nucleated RBC % Metamyelocytes Differential Comment Hypochromia Platelet Estimate Platelet Comment Polychromasia Poikilocytosis Anisocytosis Microcytosis Macrocytosis PT with INR 16.40 H INR 1.39 H Puncture Site ABG pH ABG pCO2 at Pt Temp ABG pO2 at Pt Temp ABG HCO3 ABG O2 Sat (Measured) ABG O2 Content ABG Base Excess Baldo Test Carboxyhemoglobin Methemoglobin O2 Delivery Device Oxygen Flow Rate Vent Mode Vent Rate Mechanical Rate PEEP Pressure Support Vent Sodium Potassium Chloride Carbon Dioxide Anion Gap BUN Creatinine Creat Clearance w eGFR POC Glucometer Random Glucose Serum Osmolality Lactic Acid Calcium Phosphorus Magnesium Total Bilirubin AST ALT Alkaline Phosphatase Ammonia Creatine Kinase Creatine Kinase Index CK-MB (CK-2) Troponin I Total Protein Albumin Triglycerides Lipase Urine Color Urine Appearance Urine pH Ur Specific [place] Urine Protein Urine Glucose (UA) Urine Ketones Urine Blood Urine Nitrite Urine Bilirubin Urine Urobilinogen Ur Leukocyte Esterase Urine WBC (Auto) Urine RBC (Auto) Ur Epithelial Cells Amorphous Urates Urine Bacteria Stool Occult Blood Negative Salicylates Opiates Screen Methadone Screen Acetaminophen Barbiturate Screen Phencyclidine Screen Ur Amphetamines Screen MDMA (Ecstasy) Screen Benzodiazepines Screen Cocaine Screen U Marijuana (THC) Screen Acetone, Qual Anti-A Titer Blood Type O NEGATIVE Antibody Screen Negative Crossmatch See Detail 05/11/18 05/11/18 05/11/18 17:36 18:51 18:51 WBC Corrected WBC (auto) RBC Hgb Hct MCV MCH MCHC RDW Plt Count MPV Absolute Neuts (auto) Neutrophils % Neutrophils % (Manual) Band Neutrophils % Lymphocytes % Lymphocytes % (Manual) Monocytes % Monocytes % (Manual) Eosinophils % Eosinophils % (Manual) Basophils % Basophils % (Manual) Myelocytes % (Man) Promyelocytes % (Man) Blast Cells % (Manual) Nucleated RBC % Metamyelocytes Differential Comment Hypochromia Platelet Estimate Platelet Comment Polychromasia Poikilocytosis Anisocytosis Microcytosis Macrocytosis PT with INR INR Puncture Site ABG pH ABG pCO2 at Pt Temp ABG pO2 at Pt Temp ABG HCO3 ABG O2 Sat (Measured) ABG O2 Content ABG Base Excess Baldo Test Carboxyhemoglobin Methemoglobin O2 Delivery Device Oxygen Flow Rate Vent Mode Vent Rate Mechanical Rate PEEP Pressure Support Vent Sodium Potassium Chloride Carbon Dioxide Anion Gap BUN Creatinine Creat Clearance w eGFR POC Glucometer [phone] Random Glucose Serum Osmolality Lactic Acid Calcium Phosphorus Magnesium Total Bilirubin AST ALT Alkaline Phosphatase Ammonia Creatine Kinase Creatine Kinase Index CK-MB (CK-2) Troponin I Total Protein Albumin Triglycerides Lipase Urine Color [place] Urine Appearance Cloudy Urine pH 5.0 Ur Specific [place] 1.009 L Urine Protein 1+ H Urine Glucose (UA) Negative Urine Ketones Negative Urine Blood 1+ H Urine Nitrite Negative Urine Bilirubin Negative Urine Urobilinogen 4.0 e.u/dl H Ur Leukocyte Esterase Trace Urine WBC (Auto) 2 Urine RBC (Auto) 1 Ur Epithelial Cells Few Amorphous Urates 1+ Urine Bacteria Rare Stool Occult Blood Salicylates Opiates Screen Negative Methadone Screen Negative Acetaminophen Barbiturate Screen Negative Phencyclidine Screen Negative Ur Amphetamines Screen Negative MDMA (Ecstasy) Screen Negative Benzodiazepines Screen Negative Cocaine Screen Negative U Marijuana (THC) Screen Negative Acetone, Qual Anti-A Titer Blood Type Antibody Screen Crossmatch 05/11/18 05/11/18 05/11/18 20:30 20:30 20:30 WBC 13.2 H Corrected WBC (auto) RBC 2.59 L Hgb 9.6 L Hct 29.7 L MCV 114.4 H MCH 37.1 H MCHC 32.5 RDW 14.4 Plt Count 53 L D MPV 8.7 Absolute Neuts (auto) 11.7 H Neutrophils % 88.7 H Neutrophils % (Manual) 60.0 Band Neutrophils % 29.0 Lymphocytes % 6.1 L D Lymphocytes % (Manual) 8.0 Monocytes % 3.3 L Monocytes % (Manual) 2 L Eosinophils % 1.6 Eosinophils % (Manual) 0.0 Basophils % 0.3 Basophils % (Manual) 0.0 Myelocytes % (Man) Promyelocytes % (Man) Blast Cells % (Manual) Nucleated RBC % 1 H Metamyelocytes 1 D Differential Comment Hypochromia Platelet Estimate Decreased Platelet Comment No clumping noted Polychromasia Poikilocytosis Anisocytosis Microcytosis Macrocytosis 2+ PT with INR INR Puncture Site ABG pH ABG pCO2 at Pt Temp ABG pO2 at Pt Temp ABG HCO3 ABG O2 Sat (Measured) ABG O2 Content ABG Base Excess Baldo Test Carboxyhemoglobin Methemoglobin O2 Delivery Device Oxygen Flow Rate Vent Mode Vent Rate Mechanical Rate PEEP Pressure Support Vent Sodium 139 Potassium 6.1 H* Chloride 104 Carbon Dioxide 7 L Anion Gap 28 H BUN 41 H Creatinine 3.3 H Creat Clearance w eGFR 14.51 POC Glucometer Random Glucose 88 Serum Osmolality Lactic Acid Calcium 6.9 L* Phosphorus Magnesium Total Bilirubin 8.8 H AST 1203 H ALT 366 H Alkaline Phosphatase 166 H Ammonia Creatine Kinase 249 H Creatine Kinase Index 2.9 CK-MB (CK-2) 7.2 H Troponin I Total Protein 6.3 L Albumin 2.6 L Triglycerides Lipase Urine Color Urine Appearance Urine pH Ur Specific [place] Urine Protein Urine Glucose (UA) Urine Ketones Urine Blood Urine Nitrite Urine Bilirubin Urine Urobilinogen Ur Leukocyte Esterase Urine WBC (Auto) Urine RBC (Auto) Ur Epithelial Cells Amorphous Urates Urine Bacteria Stool Occult Blood Salicylates Opiates Screen Methadone Screen Acetaminophen Barbiturate Screen Phencyclidine Screen Ur Amphetamines Screen MDMA (Ecstasy) Screen Benzodiazepines Screen Cocaine Screen U Marijuana (THC) Screen Acetone, Qual Anti-A Titer Cancelled Blood Type Cancelled Antibody Screen Cancelled Crossmatch 05/11/18 05/11/18 05/11/18 20:30 20:30 20:40 WBC Corrected WBC (auto) RBC Hgb Hct MCV MCH MCHC RDW Plt Count MPV Absolute Neuts (auto) Neutrophils % Neutrophils % (Manual) Band Neutrophils % Lymphocytes % Lymphocytes % (Manual) Monocytes % Monocytes % (Manual) Eosinophils % Eosinophils % (Manual) Basophils % Basophils % (Manual) Myelocytes % (Man) Promyelocytes % (Man) Blast Cells % (Manual) Nucleated RBC % Metamyelocytes Differential Comment Hypochromia Platelet Estimate Platelet Comment Polychromasia Poikilocytosis Anisocytosis Microcytosis Macrocytosis PT with INR INR Puncture Site ABG pH ABG pCO2 at Pt Temp ABG pO2 at Pt Temp ABG HCO3 ABG O2 Sat (Measured) ABG O2 Content ABG Base Excess Baldo Test Carboxyhemoglobin Methemoglobin O2 Delivery Device Oxygen Flow Rate Vent Mode Vent Rate Mechanical Rate PEEP Pressure Support Vent Sodium Potassium Chloride Carbon Dioxide Anion Gap BUN Creatinine Creat Clearance w eGFR POC Glucometer Random Glucose Serum Osmolality Lactic Acid 13.6 H* Calcium Phosphorus Magnesium Total Bilirubin AST ALT Alkaline Phosphatase Ammonia Creatine Kinase Creatine Kinase Index CK-MB (CK-2) Cancelled Troponin I Total Protein Albumin Triglycerides Lipase Urine Color Urine Appearance Urine pH Ur Specific [place] Urine Protein Urine Glucose (UA) Urine Ketones Urine Blood Urine Nitrite Urine Bilirubin Urine Urobilinogen Ur Leukocyte Esterase Urine WBC (Auto) Urine RBC (Auto) Ur Epithelial Cells Amorphous Urates Urine Bacteria Stool Occult Blood Salicylates Opiates Screen Methadone Screen Acetaminophen Barbiturate Screen Phencyclidine Screen Ur Amphetamines Screen MDMA (Ecstasy) Screen Benzodiazepines Screen Cocaine Screen U Marijuana (THC) Screen Acetone, Qual Positive small 1+ H Anti-A Titer Blood Type Antibody Screen Crossmatch 05/11/18 05/11/18 05/11/18 21:47 21:47 21:47 WBC Corrected WBC (auto) RBC Hgb Hct MCV MCH MCHC RDW Plt Count MPV Absolute Neuts (auto) Neutrophils % Neutrophils % (Manual) Band Neutrophils % Lymphocytes % Lymphocytes % (Manual) Monocytes % Monocytes % (Manual) Eosinophils % Eosinophils % (Manual) Basophils % Basophils % (Manual) Myelocytes % (Man) Promyelocytes % (Man) Blast Cells % (Manual) Nucleated RBC % Metamyelocytes Differential Comment Hypochromia Platelet Estimate Platelet Comment Polychromasia Poikilocytosis Anisocytosis Microcytosis Macrocytosis PT with INR INR Puncture Site ABG pH ABG pCO2 at Pt Temp ABG pO2 at Pt Temp ABG HCO3 ABG O2 Sat (Measured) ABG O2 Content ABG Base Excess Baldo Test Carboxyhemoglobin Methemoglobin O2 Delivery Device Oxygen Flow Rate Vent Mode Vent Rate Mechanical Rate PEEP Pressure Support Vent Sodium 149 H Potassium 6.1 H* Chloride 115 H Carbon Dioxide 7 L Anion Gap 28 H BUN 40 H Creatinine 3.1 H Creat Clearance w eGFR 15.60 POC Glucometer [phone] Random Glucose 67 L Serum Osmolality Lactic Acid 14.2 H* Calcium 7.0 L Phosphorus Magnesium Total Bilirubin 8.3 H AST 1459 H ALT 434 H Alkaline Phosphatase 157 H Ammonia Creatine Kinase Creatine Kinase Index CK-MB (CK-2) Troponin I Total Protein 5.9 L Albumin 2.4 L Triglycerides Lipase Urine Color Urine Appearance Urine pH Ur Specific [place] Urine Protein Urine Glucose (UA) Urine Ketones Urine Blood Urine Nitrite Urine Bilirubin Urine Urobilinogen Ur Leukocyte Esterase Urine WBC (Auto) Urine RBC (Auto) Ur Epithelial Cells Amorphous Urates Urine Bacteria Stool Occult Blood Salicylates < 2.0 L Opiates Screen Methadone Screen Acetaminophen < 1.7 L Barbiturate Screen Phencyclidine Screen Ur Amphetamines Screen MDMA (Ecstasy) Screen Benzodiazepines Screen Cocaine Screen U Marijuana (THC) Screen Acetone, Qual Anti-A Titer Blood Type Antibody Screen Crossmatch 05/11/18 05/11/18 05/11/18 21:47 22:03 23:41 WBC Corrected WBC (auto) RBC Hgb Hct MCV MCH MCHC RDW Plt Count MPV Absolute Neuts (auto) Neutrophils % Neutrophils % (Manual) Band Neutrophils % Lymphocytes % Lymphocytes % (Manual) Monocytes % Monocytes % (Manual) Eosinophils % Eosinophils % (Manual) Basophils % Basophils % (Manual) Myelocytes % (Man) Promyelocytes % (Man) Blast Cells % (Manual) Nucleated RBC % Metamyelocytes Differential Comment Hypochromia Platelet Estimate Platelet Comment Polychromasia Poikilocytosis Anisocytosis Microcytosis Macrocytosis PT with INR INR Puncture Site Left brachial ABG pH 7.00 L* ABG pCO2 at Pt Temp 21.0 L ABG pO2 at Pt Temp 141.0 H ABG HCO3 4.9 L* ABG O2 Sat (Measured) 97.0 ABG O2 Content 11.7 L ABG Base Excess -24.8 L* Baldo Test Positive Carboxyhemoglobin 2.3 H Methemoglobin 0.7 O2 Delivery Device Nasal o2 Oxygen Flow Rate 2lpm Vent Mode Vent Rate Mechanical Rate PEEP 0.0 Pressure Support Vent Sodium Potassium Chloride Carbon Dioxide Anion Gap BUN Creatinine Creat Clearance w eGFR POC Glucometer [phone] Random Glucose Serum Osmolality Lactic Acid Calcium Phosphorus 7.7 H Magnesium 1.8 Total Bilirubin AST ALT Alkaline Phosphatase Ammonia Creatine Kinase Creatine Kinase Index CK-MB (CK-2) Troponin I Total Protein Albumin Triglycerides 450 H Lipase Urine Color Urine Appearance Urine pH Ur Specific [place] Urine Protein Urine Glucose (UA) Urine Ketones Urine Blood Urine Nitrite Urine Bilirubin Urine Urobilinogen Ur Leukocyte Esterase Urine WBC (Auto) Urine RBC (Auto) Ur Epithelial Cells Amorphous Urates Urine Bacteria Stool Occult Blood Salicylates Opiates Screen Methadone Screen Acetaminophen Barbiturate Screen Phencyclidine Screen Ur Amphetamines Screen MDMA (Ecstasy) Screen Benzodiazepines Screen Cocaine Screen U Marijuana (THC) Screen Acetone, Qual Anti-A Titer Blood Type Antibody Screen Crossmatch 05/12/18 05/12/18 05/12/18 01:28 03:41 04:25 WBC 14.6 H Corrected WBC (auto) 12.07 RBC 2.31 L Hgb 8.6 L Hct 26.7 L MCV 115.8 H MCH 37.4 H MCHC 32.3 RDW 14.9 Plt Count 57 L MPV 8.7 Absolute Neuts (auto) 12.6 H Neutrophils % 86.2 H Neutrophils % (Manual) 84.2 H Band Neutrophils % 1.8 Lymphocytes % 9.5 D Lymphocytes % (Manual) 6.1 L D Monocytes % 1.4 L Monocytes % (Manual) 2 L Eosinophils % 2.0 Eosinophils % (Manual) 0.0 Basophils % 0.9 Basophils % (Manual) 2.6 H D Myelocytes % (Man) 2 D Promyelocytes % (Man) 0 Blast Cells % (Manual) 0 Nucleated RBC % 1 H Metamyelocytes 2 D Differential Comment Hypochromia 0 Platelet Estimate Decreased Platelet Comment Polychromasia 2+ Poikilocytosis 2+ Anisocytosis 2+ Microcytosis 2+ Macrocytosis 0 PT with INR INR Puncture Site ABG pH ABG pCO2 at Pt Temp ABG pO2 at Pt Temp ABG HCO3 ABG O2 Sat (Measured) ABG O2 Content ABG Base Excess Baldo Test Carboxyhemoglobin Methemoglobin O2 Delivery Device Oxygen Flow Rate Vent Mode Vent Rate Mechanical Rate PEEP Pressure Support Vent Sodium Potassium Chloride Carbon Dioxide Anion Gap BUN Creatinine Creat Clearance w eGFR POC Glucometer 102.31708 151.02788 Random Glucose Serum Osmolality Lactic Acid Calcium Phosphorus Magnesium Total Bilirubin AST ALT Alkaline Phosphatase Ammonia Creatine Kinase Creatine Kinase Index CK-MB (CK-2) Troponin I Total Protein Albumin Triglycerides Lipase Urine Color Urine Appearance Urine pH Ur Specific [place] Urine Protein Urine Glucose (UA) Urine Ketones Urine Blood Urine Nitrite Urine Bilirubin Urine Urobilinogen Ur Leukocyte Esterase Urine WBC (Auto) Urine RBC (Auto) Ur Epithelial Cells Amorphous Urates Urine Bacteria Stool Occult Blood Salicylates Opiates Screen Methadone Screen Acetaminophen Barbiturate Screen Phencyclidine Screen Ur Amphetamines Screen MDMA (Ecstasy) Screen Benzodiazepines Screen Cocaine Screen U Marijuana (THC) Screen Acetone, Qual Anti-A Titer Blood Type Antibody Screen Crossmatch 05/12/18 05/12/18 05/12/18 04:25 04:25 06:45 WBC Corrected WBC (auto) RBC Hgb Hct MCV MCH MCHC RDW Plt Count MPV Absolute Neuts (auto) Neutrophils % Neutrophils % (Manual) Band Neutrophils % Lymphocytes % Lymphocytes % (Manual) Monocytes % Monocytes % (Manual) Eosinophils % Eosinophils % (Manual) Basophils % Basophils % (Manual) Myelocytes % (Man) Promyelocytes % (Man) Blast Cells % (Manual) Nucleated RBC % Metamyelocytes Differential Comment Hypochromia Platelet Estimate Platelet Comment Polychromasia Poikilocytosis Anisocytosis Microcytosis Macrocytosis PT with INR 26.30 H INR 2.21 H Puncture Site ABG pH ABG pCO2 at Pt Temp ABG pO2 at Pt Temp ABG HCO3 ABG O2 Sat (Measured) ABG O2 Content ABG Base Excess Baldo Test Carboxyhemoglobin Methemoglobin O2 Delivery Device Oxygen Flow Rate Vent Mode Vent Rate Mechanical Rate PEEP Pressure Support Vent Sodium 134 L Potassium 7.0 H* Chloride 105 Carbon Dioxide 6 L Anion Gap 23 H BUN 37 H Creatinine 3.1 H Creat Clearance w eGFR 15.60 POC Glucometer Random Glucose 142 H Serum Osmolality Lactic Acid 15.2 H* Calcium 6.2 L* Phosphorus 5.9 H Magnesium 1.6 L Total Bilirubin 7.4 H AST 3609 H ALT 791 H Alkaline Phosphatase 149 H Ammonia Creatine Kinase Creatine Kinase Index CK-MB (CK-2) Troponin I Total Protein 5.6 L Albumin 2.2 L Triglycerides Lipase Urine Color Urine Appearance Urine pH Ur Specific [place] Urine Protein Urine Glucose (UA) Urine Ketones Urine Blood Urine Nitrite Urine Bilirubin Urine Urobilinogen Ur Leukocyte Esterase Urine WBC (Auto) Urine RBC (Auto) Ur Epithelial Cells Amorphous Urates Urine Bacteria Stool Occult Blood Salicylates Opiates Screen Methadone Screen Acetaminophen Barbiturate Screen Phencyclidine Screen Ur Amphetamines Screen MDMA (Ecstasy) Screen Benzodiazepines Screen Cocaine Screen U Marijuana (THC) Screen Acetone, Qual Anti-A Titer Blood Type Antibody Screen Crossmatch 05/12/18 05/12/18 05/12/18 06:45 06:45 07:00 WBC Corrected WBC (auto) RBC Hgb Hct MCV MCH MCHC RDW Plt Count MPV Absolute Neuts (auto) Neutrophils % Neutrophils % (Manual) Band Neutrophils % Lymphocytes % Lymphocytes % (Manual) Monocytes % Monocytes % (Manual) Eosinophils % Eosinophils % (Manual) Basophils % Basophils % (Manual) Myelocytes % (Man) Promyelocytes % (Man) Blast Cells % (Manual) Nucleated RBC % Metamyelocytes Differential Comment Hypochromia Platelet Estimate Platelet Comment Polychromasia Poikilocytosis Anisocytosis Microcytosis Macrocytosis PT with INR INR Puncture Site Right radial ABG pH 6.93 L* ABG pCO2 at Pt Temp 29.5 L D ABG pO2 at Pt Temp 287.0 H* ABG HCO3 5.9 L* ABG O2 Sat (Measured) 99.0 H ABG O2 Content 12.5 L ABG Base Excess -24.8 L* Baldo Test Positive Carboxyhemoglobin Methemoglobin O2 Delivery Device Mech vent Oxygen Flow Rate 100% Vent Mode A/c Vent Rate 14 Mechanical Rate Yes PEEP 0.0 Pressure Support Vent 500 Sodium 135 L Potassium 5.8 H Chloride 102 Carbon Dioxide 7 L Anion Gap 25 H BUN 37 H Creatinine 3.2 H Creat Clearance w eGFR 15.04 POC Glucometer Random Glucose 283 H Serum Osmolality Lactic Acid 16.1 H* Calcium 6.8 L* Phosphorus 4.6 Magnesium 2.0 Total Bilirubin 7.9 H AST 5871 H ALT 1385 H Alkaline Phosphatase 154 H Ammonia Creatine Kinase Creatine Kinase Index CK-MB (CK-2) Troponin I Total Protein 5.4 L Albumin 2.1 L Triglycerides Lipase Urine Color Urine Appearance Urine pH Ur Specific [place] Urine Protein Urine Glucose (UA) Urine Ketones Urine Blood Urine Nitrite Urine Bilirubin Urine Urobilinogen Ur Leukocyte Esterase Urine WBC (Auto) Urine RBC (Auto) Ur Epithelial Cells Amorphous Urates Urine Bacteria Stool Occult Blood Salicylates Opiates Screen Methadone Screen Acetaminophen Barbiturate Screen Phencyclidine Screen Ur Amphetamines Screen MDMA (Ecstasy) Screen Benzodiazepines Screen Cocaine Screen U Marijuana (THC) Screen Acetone, Qual Anti-A Titer Blood Type Antibody Screen Crossmatch 05/12/18 05/12/18 05/12/18 09:10 11:09 11:59 WBC 12.8 H Corrected WBC (auto) RBC 2.22 L Hgb 8.4 L Hct 25.8 L MCV 116.6 H MCH 38.0 H MCHC 32.6 RDW 14.9 Plt Count 43 L D MPV 8.9 Absolute Neuts (auto) 10.9 H Neutrophils % 84.9 H Neutrophils % (Manual) 61.0 Band Neutrophils % 21.0 Lymphocytes % 10.8 Lymphocytes % (Manual) 11.6 D Monocytes % 1.7 L Monocytes % (Manual) 1 L Eosinophils % 2.3 Eosinophils % (Manual) 1.1 D Basophils % 0.3 Basophils % (Manual) 0.0 Myelocytes % (Man) 0 D Promyelocytes % (Man) 0 Blast Cells % (Manual) 0 Nucleated RBC % 1 H Metamyelocytes 4 H D Differential Comment Hypochromia 0 Platelet Estimate Decreased Platelet Comment Polychromasia 1+ Poikilocytosis 1+ Anisocytosis 1+ Microcytosis 0 Macrocytosis 1+ PT with INR INR Puncture Site ABG pH ABG pCO2 at Pt Temp ABG pO2 at Pt Temp ABG HCO3 ABG O2 Sat (Measured) ABG O2 Content ABG Base Excess Baldo Test Carboxyhemoglobin Methemoglobin O2 Delivery Device Oxygen Flow Rate Vent Mode Vent Rate Mechanical Rate PEEP Pressure Support Vent Sodium Potassium Chloride Carbon Dioxide Anion Gap BUN Creatinine Creat Clearance w eGFR POC Glucometer 319.88245 Random Glucose Serum Osmolality Lactic Acid Calcium Phosphorus Magnesium Total Bilirubin AST ALT Alkaline Phosphatase Ammonia Creatine Kinase Creatine Kinase Index CK-MB (CK-2) Troponin I Total Protein Albumin Triglycerides Lipase 1171 H Urine Color Urine Appearance Urine pH Ur Specific [place] Urine Protein Urine Glucose (UA) Urine Ketones Urine Blood Urine Nitrite Urine Bilirubin Urine Urobilinogen Ur Leukocyte Esterase Urine WBC (Auto) Urine RBC (Auto) Ur Epithelial Cells Amorphous Urates Urine Bacteria Stool Occult Blood Salicylates Opiates Screen Methadone Screen Acetaminophen Barbiturate Screen Phencyclidine Screen Ur Amphetamines Screen MDMA (Ecstasy) Screen Benzodiazepines Screen Cocaine Screen U Marijuana (THC) Screen Acetone, Qual Anti-A Titer Blood Type Antibody Screen Crossmatch 05/12/18 05/12/18 05/12/18 12:01 12:10 13:11 WBC Corrected WBC (auto) RBC Hgb Hct MCV MCH MCHC RDW Plt Count MPV Absolute Neuts (auto) Neutrophils % Neutrophils % (Manual) Band Neutrophils % Lymphocytes % Lymphocytes % (Manual) Monocytes % Monocytes % (Manual) Eosinophils % Eosinophils % (Manual) Basophils % Basophils % (Manual) Myelocytes % (Man) Promyelocytes % (Man) Blast Cells % (Manual) Nucleated RBC % Metamyelocytes Differential Comment Hypochromia Platelet Estimate Platelet Comment Polychromasia Poikilocytosis Anisocytosis Microcytosis Macrocytosis PT with INR INR Puncture Site ABG pH ABG pCO2 at Pt Temp ABG pO2 at Pt Temp ABG HCO3 ABG O2 Sat (Measured) ABG O2 Content ABG Base Excess Baldo Test Carboxyhemoglobin Methemoglobin O2 Delivery Device Oxygen Flow Rate Vent Mode Vent Rate Mechanical Rate PEEP Pressure Support Vent Sodium 137 Potassium 4.6 Chloride 103 Carbon Dioxide 12 L Anion Gap 21 H BUN 28 H Creatinine 2.4 H Creat Clearance w eGFR 20.96 POC Glucometer 259.96316 Random Glucose 272 H Serum Osmolality 352 H Lactic Acid Calcium 7.3 L Phosphorus Magnesium Total Bilirubin 8.0 H AST 7574 H ALT 1718 H Alkaline Phosphatase 158 H Ammonia Creatine Kinase Creatine Kinase Index CK-MB (CK-2) Troponin I Total Protein 5.6 L Albumin 2.3 L Triglycerides Lipase Urine Color Urine Appearance Urine pH Ur Specific [place] Urine Protein Urine Glucose (UA) Urine Ketones Urine Blood Urine Nitrite Urine Bilirubin Urine Urobilinogen Ur Leukocyte Esterase Urine WBC (Auto) Urine RBC (Auto) Ur Epithelial Cells Amorphous Urates Urine Bacteria Stool Occult Blood Salicylates Opiates Screen Methadone Screen Acetaminophen Barbiturate Screen Phencyclidine Screen Ur Amphetamines Screen MDMA (Ecstasy) Screen Benzodiazepines Screen Cocaine Screen U Marijuana (THC) Screen Acetone, Qual Anti-A Titer Blood Type Antibody Screen Crossmatch Active Medications Current Medications Chlorhexidine Gluconate (Hibiclens For Decolonization -) 1 applic TP HS [place] Dextrose (D50w (Vial) -) 25 gm IVPUSH PRN PRN PRN Reason: HYPOGLYCEMIA Diphenhydramine HCl (Benadryl Injection -) 50 mg IVPUSH Q4H PRN PRN Reason: FOR ITCHING Norepinephrine Bitartrate 8, (000 mcg/ Dextrose) 500 mls @ 18.75 mls/hr IV TITR [place]; Protocol Last Admin: 05/12/18 10:54 Dose: 25 mcg/min, 93.75 mls/hr Vasopressin 50 units/ Sodium (Chloride) 100 mls @ 4.8 mls/hr IVPB ASDIR [place]; Protocol Last Admin: 05/12/18 12:24 Dose: 6 units/hr, 12 mls/hr Midazolam HCl 100 mg/ Sodium (Chloride) 100 mls @ 1 mls/hr IVPB TITR [place]; Protocol Stop: 05/13/18 06:14 Last Admin: 05/12/18 06:24 Dose: 5 mg/hr, 5 mls/hr Sodium Chloride (Normal Saline -) 250 mls @ 3,000 mls/hr IV PRN PRN PRN Reason: Hypotension during Dialysis Stop: 05/13/18 09:44 Sodium Bicarbonate 150 meq/ (Dextrose) 1,150 mls @ 100 mls/hr IV Q11H [place] Last Admin: 05/12/18 09:00 Dose: 100 mls/hr Levothyroxine Sodium (Synthroid Injection -) 50 mcg IVPUSH DAILY [place] Last Admin: 05/12/18 12:34 Dose: 50 mcg Mupirocin (Bactroban Ointment (For Decolonization) -) 1 applic NS BID [place] Stop: 05/17/18 09:59 Ondansetron HCl (Zofran Injection) 4 mg IVPUSH Q4H PRN PRN Reason: NAUSEA AND/OR VOMITING Pantoprazole Sodium (Protonix Iv) 40 mg IVPUSH DAILY [facility] Last Admin: 05/12/18 10:56 Dose: 40 mg Rifaximin (Xifaxan -) 550 mg PO BID [facility] Last Admin: 05/12/18 10:52 Dose: Not Given ASSESSMENT/PLAN: A 57 y.o. F w/ PMHx. of EtoH abuse, EtoH Pancreatitis, GERD, cirrhosis and Hypothyroidism presents to the ICU in alcoholic ketoacidosis associated with lactic acidosis and respiratory failure 2/2 respiratory acidosis. Pt. was found to be hyperkalemic, hyperchloremic, hypoglycemic, transaminitis and in acute kidney failure. #Pulmonology -Acute Respiratory Failure 2/2 alcoholic ketoacidosis and associated lactic acidosis Intubated on Versed Drip, Levophed, and Vasopressin ABG: pH-6.93, pCO2-29.5, pO2-287, HCO3-5.9; f/u ABG after HD LA: 16.1-->13.3 c/w Bicarbonate Drip at 100ml/hr Vent settings: A/C, FiO2:40%, Vt: 500ml, PIF: 50, RR: 14; PSV: 8 Keep SpO2 above 92% with the lowest FiO2 requirement C/w empiric Renally dosed Zosyn and Vancomycin #Gastroenterology -Upper and Lower GI bleeds GI consult( Dr. Barcenas) appreciated Protonix 40mg IVP Hold anticoagulation FOBT+ s/p 1 unit pRBC, 1 unit FFP, 2 units platelets -Transaminitis 2/2 alcohol abuse AST: 3609, ALT: 791--> 7529 and 1718 respectively Trend CMPs -Acute on chronic Alcoholic Pancreatitis Lipase 701-->1171 -Cirrhosis c/w Rifaximin #Endocrine -Hypothyroidism-stable c/w Levothyroxine f/u TSH level in AM, as stress can increase the need for Levothyroxine #Cardiology -Hypotension c/w Levophed and Vasopressin monitor BP monitor CVP A-line inserted #F/E/N -Bicarbonate @ 100mls/hr -HD for abnormal electrolytes, will replete as needed -NPO
--- NOTE | 2018-05-12 15:23 | CON.ID ---
Consult Consult Specialty:: infectious diseases Reason for Consultation:: sepsis,lactic acidosis - History of Present Illness Chief Complaint: patient intubated History of Present Illness: patients history obtained from the charts as patient is intubated 57 year old female with pmhx of etoh abuse, polysubstance abuse, and liver disease who presented to the ER with nuasea and vomiting. Pt also had increased falls. She has been binge drinking for the last four days. She has has increase etoh consumption over the last few months. Her boyfriend has been trying to get her to go to rehab however she has been refusing. Pt was found to be hyperkalemia and acidotic. She did not respond to medical therapy and fluids. patient finally got intubated and in the icu patient looks like she is going into multiorgan failue on admission patient had a very high lactic acid,leukocytosis mental status changes according to the er note patient presented with gi bleed - History Source History Provided By: Medical Record Limitations to Obtaining History: Clinical Condition - Past Medical History Gastrointestinal: Yes: GERD, Pancreatitis (recurrent) Hepatobiliary: Yes: Cirrhosis (possible) ...LMP: 08/01/12 Psych: Yes: Addictions Endocrine: Yes: Hypothyroidism - Past Surgical History Past Surgical History: Yes: - Alcohol/Substance Use Hx Alcohol Use: Yes Number of Drinks Daily: 2 (pints) History of Substance Use: reports: Cocaine (4 weeks ago) - Smoking History Smoking history: Never smoked Have you smoked in the past 12 months: No Aproximately how many cigarettes per day: 0 - Social History ADL: Independent 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 History of Recent Travel: No Home Medications - Allergies Allergies/Adverse Reactions: Allergies Allergy/AdvReac Type Severity Reaction Status Date / Time lamotrigine [From Lamictal] Allergy Verified 03/17/18 11:16 lorazepam [From Ativan] Allergy Rash Verified 03/17/18 11:16 - Home Medications Home Medications: Ambulatory Orders Folic Acid 1 mg PO DAILY #30 tablet 11/27/17 Levothyroxine [Synthroid -] 100 mcg PO DAILY@0700 #30 tablet 11/27/17 Magnesium Oxide [Mag-Ox -] 400 mg PO BID #60 tablet 11/27/17 Thiamine HCl [Vitamin B1 -] 100 mg PO HS #30 tablet 11/27/17 Lactulose (Oral Use) [Cephulac -] 20 gm PO TID udc 12/23/17 Vitamins (Sjr) - 1 tab PO DAILY tablet 12/23/17 Pantoprazole Sodium [Protonix -] 40 mg PO DAILY 05/11/18 Family Disease History - Family Disease History Family Disease History: Diabetes: Father (etoh), Heart Disease: Mother (anxiety, triple bypass, aortic repair), Other: Father Review of Systems Unable to obtain ROS, reason: unable to obtain Physical Exam Vital Signs: Vital Signs Temperature 97.5 F L 05/12/18 14:00 Pulse Rate 100 H 05/12/18 14:30 Respiratory Rate 30 H 05/12/18 14:30 Blood Pressure 124/38 L 05/12/18 14:30 O2 Sat by Pulse Oximetry (%) 98 05/12/18 08:00 Constitutional: Yes: Other Cardiovascular: Yes: Tachycardia Respiratory: Yes: Intubated, Mechanically Ventilated Gastrointestinal: Yes: Soft, Hypoactive Bowel Sounds Musculoskeletal: Yes: WNL Extremities: Yes: WNL Neurological: Yes: Other Psychiatric: Yes: Other Labs: CBC, BMP 05/12/18 09:10 05/12/18 12:10 Imaging - Results Chest X-ray: Report Reviewed, Image Reviewed X-ray: Report Reviewed, Image Reviewed Ultrasound: Report Reviewed, Image Reviewed Assessment/Plan this patient who is now intubated looks like she is going into multiorgan failure and who came in with bleed and lactic acidosis.After looking at the patient and her imaging studies i am also worrying if she is developing pna on the left side gi bleed and lactic acidosis worry factor if she has intestinal ischemia , blood gases noted patient septic now patient very critical Problem List - Problems (1) Acute respiratory failure with hypercapnia Code(s): J96.02 - ACUTE RESPIRATORY FAILURE WITH HYPERCAPNIA (2) Septic shock Code(s): A41.9 - SEPSIS, UNSPECIFIED ORGANISM; R65.21 - SEVERE SEPSIS WITH SEPTIC SHOCK (3) High anion gap metabolic acidosis Code(s): E87.2 - ACIDOSIS (4) Metabolic acidosis Code(s): E87.2 - ACIDOSIS (5) Acute respiratory acidosis Code(s): E87.2 - ACIDOSIS (6) Hepatic failure Code(s): K72.90 - HEPATIC FAILURE, UNSPECIFIED WITHOUT COMA (7) Acute blood loss anemia Code(s): D62 - ACUTE POSTHEMORRHAGIC ANEMIA (8) GI bleed Code(s): K92.2 - GASTROINTESTINAL HEMORRHAGE, UNSPECIFIED (9) ARF (acute renal failure) Code(s): N17.9 - ACUTE KIDNEY FAILURE, UNSPECIFIED Qualifiers: Acute renal failure type: unspecified Qualified Code(s): N17.9 - Acute kidney failure, unspecified (10) Thrombocytopenia Code(s): D69.6 - THROMBOCYTOPENIA, UNSPECIFIED (11) Hypothyroid Code(s): E03.9 - HYPOTHYROIDISM, UNSPECIFIED Qualifiers: (12) Pancreatitis, acute Code(s): K85.90 - ACUTE PANCREATITIS WITHOUT NECROSIS OR INFECTION, UNSP Qualifiers: Pancreatitis type: alcohol induced 13 pneumonia plan will start patient on zosyn aggressive hydration resp support monitor bleeding gi vent as per icu gi prophylaxis cc 45 min
[2018-05-12] MEDS ORDERED: PIPERACILLIN/TAZOBACTAM 2.25 GM VIAL IVPB ONE (15:33)
[2018-05-12 15:39] LABS: ARTERIAL BLD GAS O2 SATURATION 96.1 % (90-98.9); ARTERIAL BLOOD GAS BASE EXCESS -14.9 meq/l (-2-2); ARTERIAL BLOOD GAS PCO2 22.1 mmHg (35-45); ARTERIAL BLOOD GAS PO2 83.7 mmHg (80-100); ARTERIAL BLOOD GAS pH 7.29 (7.35-7.45)
[2018-05-12 15:41] LABS: ALLENS TEST POSITIVE
[2018-05-12] MEDS: PIPERACILLIN/TAZOB 2.25 GM 2.25 GM in DEXTROSE 5%-WATER - 50 ML IVPB SCH ×2 (15:49→17:15)
[2018-05-12] MEDS: MUPIROCIN 2% TOPICAL OINTMENT FOR DECOLONIZATION NS SCH ×2 (15:50→21:22)
[2018-05-12 16:09] LABS: BASO % 0.4 % (0-2.0); EOS % 2.3 % (0-4.5); HEMATOCRIT 25.3 % (32.4-45.2); HEMOGLOBIN 8.5 GM/dL (10.7-15.3); LYMPH % 16.2 % (8-40); MCH 35.8 pg (25.7-33.7); MCHC 33.4 g/dl (32.0-36.0); MEAN CELL VOLUME 107.2 fl (80-96); MEAN PLT VOLUME 8.4 fl (7.5-11.1); MONO % 0.6 % (3.8-10.2); NEUT % 80.5 % (42.8-82.8); PLATELET COUNT 41 K/MM3 (134-434); RBC 2.36 M/mm3 (3.60-5.2); RDW 17.4 % (11.6-15.6)
--- NOTE | 2018-05-12 16:31 | PN ---
Progress Note, Physician Chief Complaint: Patient intubated and sedated - Current Medication List Current Medications: Active Medications Chlorhexidine Gluconate (Hibiclens For Decolonization -) 1 applic TP HS [place] Dextrose (D50w (Vial) -) 25 gm IVPUSH PRN PRN PRN Reason: HYPOGLYCEMIA Diphenhydramine HCl (Benadryl Injection -) 50 mg IVPUSH Q4H PRN PRN Reason: FOR ITCHING Norepinephrine Bitartrate 8, (000 mcg/ Dextrose) 500 mls @ 18.75 mls/hr IV TITR [place]; Protocol Last Admin: 05/12/18 16:24 Dose: 25 mcg/min, 93.75 mls/hr Vasopressin 50 units/ Sodium (Chloride) 100 mls @ 4.8 mls/hr IVPB ASDIR [place]; Protocol Last Admin: 05/12/18 12:24 Dose: 6 units/hr, 12 mls/hr Midazolam HCl 100 mg/ Sodium (Chloride) 100 mls @ 1 mls/hr IVPB TITR [place]; Protocol Stop: 05/13/18 06:14 Last Admin: 05/12/18 06:24 Dose: 5 mg/hr, 5 mls/hr Sodium Chloride (Normal Saline -) 250 mls @ 3,000 mls/hr IV PRN PRN PRN Reason: Hypotension during Dialysis Stop: 05/13/18 09:44 Sodium Bicarbonate 150 meq/ (Dextrose) 1,150 mls @ 100 mls/hr IV Q11H [place] Last Admin: 05/12/18 09:00 Dose: 100 mls/hr Piperacillin Sod/Tazobactam (Sod 2.25 gm/ Dextrose) 50 mls @ 100 mls/hr IVPB Q8H-IV [place]; Protocol Last Admin: 05/12/18 15:49 Dose: 100 mls/hr Levothyroxine Sodium (Synthroid Injection -) 50 mcg IVPUSH DAILY [place] Last Admin: 05/12/18 12:34 Dose: 50 mcg Mupirocin (Bactroban Ointment (For Decolonization) -) 1 applic NS BID [place] Stop: 05/17/18 09:59 Last Admin: 05/12/18 15:50 Dose: 1 applic Ondansetron HCl (Zofran Injection) 4 mg IVPUSH Q4H PRN PRN Reason: NAUSEA AND/OR VOMITING Pantoprazole Sodium (Protonix Iv) 40 mg IVPUSH DAILY [facility] Last Admin: 05/12/18 10:56 Dose: 40 mg Rifaximin (Xifaxan -) 550 mg PO BID [facility] Last Admin: 05/12/18 10:52 Dose: Not Given - Objective Vital Signs: Vital Signs Temperature 37.1 C 05/12/18 16:00 Pulse Rate 102 H 05/12/18 16:24 Respiratory Rate 33 H 05/12/18 16:00 Blood Pressure 137/46 L 05/12/18 16:24 O2 Sat by Pulse Oximetry (%) 98 05/12/18 08:00 Constitutional: Yes: Obese, Other (sedated) Cardiovascular: Yes: Tachycardia. No: Gallop, Murmur, Rub Respiratory: Yes: Regular, Intubated, Mechanically Ventilated, Rhonchi. No: CTA Bilaterally, Rales, Wheezes Gastrointestinal: Yes: Soft, Hypoactive Bowel Sounds. No: Distention, Tenderness Extremities: Yes: WNL Edema: No Integumentary: Yes: Bruising Labs: CBC, BMP 05/12/18 15:15 05/12/18 12:10 INR, PTT INR 2.21 (0.83-1.09) H 05/12/18 06:45 Problem List - Problems (1) Acute respiratory failure with hypercapnia Assessment/Plan: -intubated secondary to decompensation causing worsening acidemia -case d/w pulmonary -continue mechanical ventilation -treat underlying condition Code(s): J96.02 - ACUTE RESPIRATORY FAILURE WITH HYPERCAPNIA (2) Septic shock Assessment/Plan: -concerning for septic shock -currently needing two pressors for support -empiric vancomycin and zosyn given -ID consulted -with GI bleeding and elevated lactic acid, very concerning for mesenteric ischemia -GI consulted Code(s): A41.9 - SEPSIS, UNSPECIFIED ORGANISM; R65.21 - SEVERE SEPSIS WITH SEPTIC SHOCK (3) High anion gap metabolic acidosis Assessment/Plan: -secondary to alcohol and lactic acid -case d/w nephrology -emergent HD -mechanical ventilation for respiratory compensation Code(s): E87.2 - ACIDOSIS (4) Metabolic acidosis Assessment/Plan: -patient with a mixed acidosis -has both anion gap and non-anion gap acidosis -placed on bicarb gtt -emergent HD -monitor for improvement Code(s): E87.2 - ACIDOSIS (5) Acute respiratory acidosis Assessment/Plan: -patient originally had a compensated respiratory acidosis (but still very acidotic) -then developed acute respiratory acidosis -ventilated Code(s): E87.2 - ACIDOSIS (6) Hepatic failure Assessment/Plan: -combination of chronic alcohol use and shock liver -INR elevated -GI consulted -supportive care -will give vitamin K since with active bleed Code(s): K72.90 - HEPATIC FAILURE, UNSPECIFIED WITHOUT COMA (7) Acute blood loss anemia Assessment/Plan: -with GI bleed -close monitoring -currently no need for transfusion -FFP ordered -also order vitamin k Code(s): D62 - ACUTE POSTHEMORRHAGIC ANEMIA (8) GI bleed Assessment/Plan: -GI consult -on IV protonix Code(s): K92.2 - GASTROINTESTINAL HEMORRHAGE, UNSPECIFIED (9) ARF (acute renal failure) Assessment/Plan: -case d/w Dr Gray -emergent HD Code(s): N17.9 - ACUTE KIDNEY FAILURE, UNSPECIFIED Qualifiers: Acute renal failure type: unspecified Qualified Code(s): N17.9 - Acute kidney failure, unspecified (10) Thrombocytopenia Assessment/Plan: -currently at baseline -low threshold for transfusion Code(s): D69.6 - THROMBOCYTOPENIA, UNSPECIFIED (11) Hypothyroid Assessment/Plan: -IV synthroid Code(s): E03.9 - HYPOTHYROIDISM, UNSPECIFIED Qualifiers: (12) Pancreatitis, acute Assessment/Plan: -aggressive hydration Code(s): K85.90 - ACUTE PANCREATITIS WITHOUT NECROSIS OR INFECTION, UNSP Qualifiers: Pancreatitis type: alcohol induced Assessment/Plan 42 minutes in critical care time spent with this patient discussed with nephrology and ICU team very poor prognosis
[2018-05-12] MEDS ORDERED: PHYTONADIONE 10 MG/1 ML AMP IVPB ONE (16:44)
[2018-05-12 17:41] LABS: BASO % 0.3 % (0-2.0); EOS % 1.1 % (0-4.5); HEMATOCRIT 24.2 % (32.4-45.2); LYMPH % 10.8 % (8-40); MCH 35.6 pg (25.7-33.7); MCHC 33.2 g/dl (32.0-36.0); MEAN CELL VOLUME 107.1 fl (80-96); MEAN PLT VOLUME 7.9 fl (7.5-11.1); MONO % 0.4 % (3.8-10.2); NEUT % 87.4 % (42.8-82.8); PLATELET COUNT 38 K/MM3 (134-434); RBC 2.26 M/mm3 (3.60-5.2); WHITE BLOOD COUNT 3.6 K/mm3 (4.0-10.0)
[2018-05-12] MEDS ORDERED: OCTREOTIDE ACETATE 1,200 MCG in DEXTROSE 5%-WATER - 488 ML IVPB SCH (18:00)
--- NOTE | 2018-05-12 18:01 | CON.GI ---
Consult Consult Specialty:: GI - History of Present Illness History of Present Illness: Ask to see patient because of GI bleeding. Patient was admitted with sepsis complicated by respiratory failure, hepatic failure secondary to alcohol, hepatic encephalopathy. 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 History 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 Travel: No Home Medications - Allergies Allergies/Adverse Reactions: Allergies Allergy/AdvReac Type Severity Reaction Status Date / Time lamotrigine [From Lamictal] Allergy Verified 03/17/18 11:16 lorazepam [From Ativan] Allergy Rash Verified 03/17/18 11:16 - Home Medications Home Medications: Ambulatory Orders Folic Acid 1 mg PO DAILY #30 tablet 11/27/17 Levothyroxine [Synthroid -] 100 mcg PO DAILY@0700 #30 tablet 11/27/17 Magnesium Oxide [Mag-Ox -] 400 mg PO BID #60 tablet 11/27/17 Thiamine HCl [Vitamin B1 -] 100 mg PO HS #30 tablet 11/27/17 Lactulose (Oral Use) [Cephulac -] 20 gm PO TID udc 12/23/17 Vitamins (Sjr) - 1 tab PO DAILY tablet 12/23/17 Pantoprazole Sodium [Protonix -] 40 mg PO DAILY 05/11/18 Family Disease History - Family Disease History Family Disease History: Diabetes: Father (etoh), Heart Disease: Mother (anxiety, triple bypass, aortic repair), Other: Father Physical Exam-GI Vital Signs: Vital Signs Temperature 98.8 F 05/12/18 16:00 Pulse Rate 102 H 05/12/18 16:24 Respiratory Rate 35 H 05/12/18 17:10 Blood Pressure 137/46 L 05/12/18 16:24 O2 Sat by Pulse Oximetry (%) 98 05/12/18 08:00 Constitutional: Yes: Other (unresponsive) HENT: Yes: Epistaxis Neck: Yes: Supple Cardiovascular: Yes: Regular Rate and Rhythm Respiratory: Yes: CTA Bilaterally Gastrointestinal Inspection: Yes: Distention ...Auscultate: Yes: No Bowel Sounds ...Palpate: Yes: Soft. No: Guarding, Hepatomegaly, Pulsatile Mass, Splenomegaly , Tenderness Labs: CBC, BMP 05/12/18 17:20 05/12/18 12:10 INR, PTT INR 2.21 (0.83-1.09) H 05/12/18 06:45 Problem List - Problems (1) Ischemic hepatitis Assessment/Plan: R> continue IV hydration Code(s): K75.9 - INFLAMMATORY LIVER DISEASE, UNSPECIFIED (2) Renal failure Assessment/Plan: r/o hepatorenal syndrome vs secondary to septic shock Code(s): N19 - UNSPECIFIED KIDNEY FAILURE (3) GI bleed Assessment/Plan: IV sandostatin Code(s): K92.2 - GASTROINTESTINAL HEMORRHAGE, UNSPECIFIED (4) Hepatic failure Assessment/Plan: supportive care prognosis poor Code(s): K72.90 - HEPATIC FAILURE, UNSPECIFIED WITHOUT COMA
--- NOTE | 2018-05-12 18:05 | PN ---
Progress Note (short form) - Note Progress Note: Case d/w GI; for GIB will start on sandostatin gtt. Will also give 2 additional U of platelets, as recent plt ct 38. Will f/u repeat CBC after transfusion. Emmie Leggett MD PGY-2 ICU team
[2018-05-12] MEDS: OCTREOTIDE ACETATE 1,200 MCG in DEXTROSE 5%-WATER - 488 ML IVPB SCH (21:23)
[2018-05-12] MEDS: CHLORHEXIDINE GLUCONATE 4% CLEANSER FOR DECOLONIZATION TP SCH (21:23)
[2018-05-13] MEDS ORDERED: DEXTROSE 5%-WATER - 50 ML IVPB ONE ×3 (00:53→17:08)
[2018-05-13] MEDS ORDERED: PIPERACILLIN/TAZOBACTAM 2.25 GM VIAL IVPB ONE ×3 (00:53→17:08)
[2018-05-13] MEDS: PIPERACILLIN/TAZOB 2.25 GM 2.25 GM in DEXTROSE 5%-WATER - 50 ML IVPB SCH ×3 (01:02→17:10)
[2018-05-13 01:16] LABS: BASO % 0.2 % (0-2.0); HEMATOCRIT 23.2 % (32.4-45.2); HEMOGLOBIN 7.5 GM/dL (10.7-15.3); LYMPH % 16.2 % (8-40); MCH 35.2 pg (25.7-33.7); MCHC 32.5 g/dl (32.0-36.0); MEAN CELL VOLUME 108.4 fl (80-96); MONO % 59.8 % (3.8-10.2); NEUT % 21.8 % (42.8-82.8); PLATELET COUNT 41 K/MM3 (134-434); RBC 2.14 M/mm3 (3.60-5.2); RDW 19.2 % (11.6-15.6); WHITE BLOOD COUNT 4.9 K/mm3 (4.0-10.0)
[2018-05-13 02:58] LABS: ALBUMIN 2.2 g/dl (3.4-5.0); ALK PHOS 168 U/L (45-117); ANION GAP 30 MMOL/L (8-16); BILIRUBIN,TOTAL 7.8 mg/dL (0.2-1); BLOOD UREA NITROGEN 23 mg/dL (7-18); CHLORIDE 97 mmol/L (98-107); CO2 10 mmol/L (21-32); CREATININE 3.4 mg/dL (0.55-1.3); GLUCOSE,RANDOM 158 mg/dL (74-106); SGOT/AST 9483 U/L (15-37); SGPT/ALT 1819 U/L (13-61); SODIUM 138 mmol/L (136-145)
[2018-05-13 03:01] LABS: POTASSIUM 2.8 mmol/L (3.5-5.1)
[2018-05-13 03:02] LABS: CALCIUM 6.9 mg/dL (8.5-10.1)
[2018-05-13 03:13] LABS: ANISOCYTOSIS 2+; CORRECTED WBC 4.41 K/mm3; MACROCYTOSIS 0; PLATELET ESTIMATE DECREASED
[2018-05-13] MEDS ORDERED: SODIUM BICARBONATE 8.4% - 150 MEQ in DEXTROSE 5%-WATER - 1,000 ML IV SCH (03:23)
[2018-05-13] MEDS ORDERED: CALCIUM GLUCONATE 10% - 1,000 MG/10 ML VIAL IVPUSH ONE ×2 (03:30→22:45)
[2018-05-13] MEDS: KCL 10 MEQ IVPB 10 MEQ/100 ML INFUS.BAG IVPB SCH ×4 (03:41→08:37)
[2018-05-13] MEDS: NOREPINEPHRINE BITARTRATE 8,000 MCG in DEXTROSE 5%-WATER - 492 ML IV SCH ×2 (04:00→08:39)
[2018-05-13 05:54] LABS: BASO % 0.3 % (0-2.0); EOS % 13.8 % (0-4.5); HEMATOCRIT 23.2 % (32.4-45.2); HEMOGLOBIN 7.5 GM/dL (10.7-15.3); LYMPH % 13.1 % (8-40); MCH 35.4 pg (25.7-33.7); MCHC 32.6 g/dl (32.0-36.0); MEAN CELL VOLUME 108.8 fl (80-96); MEAN PLT VOLUME 9.6 fl (7.5-11.1); MONO % 0.4 % (3.8-10.2); NEUT % 72.4 % (42.8-82.8); RBC 2.13 M/mm3 (3.60-5.2); RDW 19.1 % (11.6-15.6)
[2018-05-13] MEDS: VASOPRESSIN 50 UNITS in SODIUM CHLORIDE 97.5 ML IVPB SCH ×2 (05:56→10:41)
[2018-05-13] MEDS ORDERED: POTASSIUM CHLORIDE 20 MEQ PREMIX IVPB 100 ML IVPB ONE (06:16)
[2018-05-13 06:19] LABS: PLATELET COUNT 32 K/MM3 (134-434)
[2018-05-13] MEDS ORDERED: POTASSIUM CHLORIDE 20 MEQ PREMIX IVPB 100 ML IVPB SCH (06:30)
[2018-05-13 06:33] LABS: ARTERIAL BLD GAS O2 SATURATION 99.2 % (90-98.9); ARTERIAL BLOOD GAS BASE EXCESS -17.5 meq/l (-2-2)
[2018-05-13 06:34] LABS: ALLENS TEST POSITIVE; ARTERIAL BLOOD GAS PCO2 23.2 mmHg (35-45); ARTERIAL BLOOD GAS pH 7.21 (7.35-7.45)
[2018-05-13] MEDS: POTASSIUM CHLORIDE 20 MEQ PREMIX IVPB 100 ML IVPB SCH ×4 (08:00→10:00)
[2018-05-13 08:02] LABS: ALBUMIN 2.2 g/dl (3.4-5.0); ALK PHOS 159 U/L (45-117); ANION GAP 31 MMOL/L (8-16); BILIRUBIN,TOTAL 8.4 mg/dL (0.2-1); BLOOD UREA NITROGEN 24 mg/dL (7-18); CHLORIDE 95 mmol/L (98-107); CO2 9 mmol/L (21-32); CREATININE 3.8 mg/dL (0.55-1.3); GLUCOSE,RANDOM 144 mg/dL (74-106); MAGNESIUM 1.4 mg/dL (1.8-2.4); POTASSIUM 3.3 mmol/L (3.5-5.1); SGOT/AST 8393 U/L (15-37); SGPT/ALT 1741 U/L (13-61); SODIUM 135 mmol/L (136-145)
[2018-05-13 08:05] LABS: CALCIUM 6.8 mg/dL (8.5-10.1)
[2018-05-13 08:06] LABS: HEPATITIS B CORE ANTIBODY,IGM Negative (Negative)
[2018-05-13] MEDS ORDERED: IBUPROFEN 800 MG/8 ML IJ IVPB PRN (08:19)
[2018-05-13] MEDS ORDERED: NOREPINEPHRINE BITARTRATE 4 MG/4 ML ML IV ONE ×2 (08:31→18:13)
[2018-05-13] MEDS ORDERED: LACTATED RINGERS SOLUTION 1,000 ML/1,000 ML INFUS.BAG IV SCH (08:45)
[2018-05-13 08:55] LABS: INR 2.69 (0.83-1.09); PROTHROMBIN TIME (PATIENT) 32.1 SEC (9.7-13.0)
[2018-05-13 08:57] LABS: ACTIVATED PTT 31.5 SECONDS (25.2-36.5)
[2018-05-13] MEDS ORDERED: POTASSIUM PHOSPHATE 30 MM in SODIUM CHLORIDE 250 ML IVPB ONE (09:01)
[2018-05-13] MEDS ORDERED: MAGNESIUM SULF 50% (8.12 MEQ/2 ML-1 GM VIAL) IVPB ONE (09:02)
[2018-05-13 09:21] LABS: LIPASE 2990 U/L (73-393)
[2018-05-13] MEDS ORDERED: PT OWN MED DRAWER 7, Y5N ONE ×2 (09:44→10:37)
[2018-05-13] MEDS: PANTOPRAZOLE SODIUM 40 MG VIAL IVPUSH SCH ×3 (09:50→21:34)
[2018-05-13] MEDS: RIFAXIMIN 550 MG TABLET (UD) PO SCH ×2 (09:50→21:00)
[2018-05-13] MEDS: LEVOTHYROXINE SODIUM 100 MCG VIAL IVPUSH SCH (09:51)
[2018-05-13] MEDS: MUPIROCIN 2% TOPICAL OINTMENT FOR DECOLONIZATION NS SCH ×2 (10:05→21:35)
[2018-05-13 10:27] LABS: PLATELET ESTIMATE DECREASED
[2018-05-13] MEDS ORDERED: VASOPRESSIN 20 UNITS/ML VIAL IV ONE ×2 (10:36→18:13)
--- NOTE | 2018-05-13 10:39 | CONSULT ---
Consultation: REQUESTING PROVIDER: CONSULT REQUEST: We have been asked to medically evaluate this patient for thrombocytopenia. HISTORY OF PRESENT ILLNESS: 57 y/o F PMHx of ETOH abuse, liver disease and GIB presents for AMS. reports that the patient has been binge drinking.Patient will be admitted to ICU for Septic Shock, Acute Renal Failure, Electrolyte Imbalance, Hepatic Encephalopathy and GI bleed. Thrombocytopenia is chronic and secondary to chronic alcohol abuse and liver disease. Is currently intubated and sedated receiving emergency HD. History Source: Medical Record Limitations to Obtaining History: Clinical Condition - Past Medical History Gastrointestinal: Yes: GERD, Pancreatitis (recurrent) Hepatobiliary: Yes: Cirrhosis (possible) ...LMP: 08/01/12 Heme/Onc: Yes: Thrombocytopenia Psych: Yes: Addictions Endocrine: Yes: Hypothyroidism - Past Surgical History Past Surgical History: Yes: - Smoking History Smoking history: Never smoked Have you smoked in the past 12 months: No Aproximately how many cigarettes per day: 0 - Alcohol/Substance Use Hx Alcohol Use: Yes Number of Drinks Daily: 2 (pints) History of Substance Use: reports: Cocaine (4 weeks ago) - Social History ADL: Independent 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 PHYSICAL EXAMINATION Vital Signs - 24 hr 05/12/18 05/12/18 05/12/18 10:54 11:10 11:15 Temperature 94.8 F L Pulse Rate 86 86 84 Respiratory 18 30 H Rate Blood Pressure 106/74 104/60 104/51 L O2 Sat by Pulse Oximetry (%) 05/12/18 05/12/18 05/12/18 11:25 11:45 12:00 Temperature 97.5 F L Pulse Rate 92 H 93 H Respiratory 28 H 30 H 31 H Rate Blood Pressure 106/46 L 107/50 L O2 Sat by Pulse Oximetry (%) 05/12/18 05/12/18 05/12/18 12:15 12:24 12:45 Temperature Pulse Rate 90 93 H 90 Respiratory 30 H 30 H Rate Blood Pressure 106/43 L 103/48 L 109/47 L O2 Sat by Pulse Oximetry (%) 05/12/18 05/12/18 05/12/18 13:15 13:45 14:00 Temperature 97.5 F L Pulse Rate 99 H 101 H 96 H Respiratory 30 H 30 H 20 Rate Blood Pressure 134/53 L 120/42 L 122/82 O2 Sat by Pulse Oximetry (%) 05/12/18 05/12/18 05/12/18 14:20 14:28 14:30 Temperature Pulse Rate 100 H 100 H Respiratory 30 H 34 H 30 H Rate Blood Pressure 128/39 L 124/38 L O2 Sat by Pulse Oximetry (%) 05/12/18 05/12/18 05/12/18 16:00 16:24 17:10 Temperature 98.8 F Pulse Rate 103 H 102 H Respiratory 33 H 35 H Rate Blood Pressure 136/52 L 137/46 L O2 Sat by Pulse Oximetry (%) 05/12/18 05/12/18 05/12/18 18:00 19:00 19:28 Temperature 100.7 F H Pulse Rate 99 H 102 H Respiratory 32 H 33 H 31 H Rate Blood Pressure 114/58 L 117/49 L O2 Sat by Pulse Oximetry (%) 05/12/18 05/12/18 05/12/18 20:00 21:00 21:27 Temperature Pulse Rate 100 H 102 H Respiratory 32 H 19 30 H Rate Blood Pressure 115/46 L 115/44 L O2 Sat by Pulse 98 Oximetry (%) 05/12/18 05/12/18 05/13/18 22:00 23:00 00:00 Temperature 98.4 F Pulse Rate 104 H 104 H 105 H Respiratory 30 H 13 31 H Rate Blood Pressure 108/54 L 118/45 L 104/47 L O2 Sat by Pulse Oximetry (%) 05/13/18 05/13/18 05/13/18 00:35 01:00 02:00 Temperature 99.1 F Pulse Rate 106 H 106 H Respiratory 29 H 16 30 H Rate Blood Pressure 104/57 L 101/43 L O2 Sat by Pulse Oximetry (%) 05/13/18 05/13/18 05/13/18 03:00 03:35 04:00 Temperature Pulse Rate 106 H 102 H Respiratory 16 30 H Rate Blood Pressure 97/43 L 88/48 L O2 Sat by Pulse Oximetry (%) 05/13/18 05/13/18 05/13/18 05:00 05:56 05:57 Temperature Pulse Rate 110 H 104 H 102 H Respiratory 16 Rate Blood Pressure 89/50 L 89/48 L 89/48 L O2 Sat by Pulse Oximetry (%) 05/13/18 05/13/18 05/13/18 06:10 08:00 08:39 Temperature Pulse Rate 96 H 95 H Respiratory 24 H 26 H Rate Blood Pressure 100/46 L 97/41 L O2 Sat by Pulse Oximetry (%) 05/13/18 05/13/18 08:42 10:00 Temperature 103.4 F H Pulse Rate 97 H 96 H Respiratory 28 H 24 H Rate Blood Pressure 94/50 L O2 Sat by Pulse 93 L Oximetry (%) GENERAL: intubated and sedated. HEAD: NCAT EYES: Pupils equal, round and reactive to light, extraocular movements intact, sclera anicteric, conjunctiva clear. No lid lag. EARS, NOSE, THROAT: moist mucous membranes. NECK: CV cath in place RIJ LUNGS: Diminished breath sounds bilaterally, scattered rhonchi. HEART:RRR, normal S1 and S2 without murmur, rub or gallop. ABDOMEN: Soft, NTND,NABS no guarding, no rebound, no masses. No hepatomegaly, splenomegaly(+). MUSCULOSKELETAL: No bony deformities or tenderness. UPPER EXTREMITIES: 2+ pulses, warm, well-perfused. No cyanosis. No clubbing. No peripheral edema. LOWER EXTREMITIES: 2+ pulses, warm, well-perfused. No calf tenderness. No peripheral edema. NEUROLOGICAL: sedated and minimally response. SKIN: multiple sites of bruising Laboratory Results - last 24 hr 05/11/18 05/12/18 05/12/18 16:48 06:45 09:10 WBC Corrected WBC (auto) RBC Hgb Hct MCV MCH MCHC RDW Plt Count MPV Absolute Neuts (auto) Total Counted Neutrophils % Neutrophils % (Manual) 61.0 Band Neutrophils % 21.0 Lymphocytes % Lymphocytes % (Manual) 11.6 D Monocytes % Monocytes % (Manual) 1 L Eosinophils % Eosinophils % (Manual) 1.1 D Basophils % Basophils % (Manual) 0.0 Myelocytes % (Man) 0 D Promyelocytes % (Man) 0 Blast Cells % (Manual) 0 Nucleated RBC % Metamyelocytes 4 H D Differential Comment Hypersegmented Neuts Plasma Cells Smudge Cells Other Cell Type Hypochromia 0 Toxic Granulation Dohle Bodies Platelet Estimate Decreased Polychromasia 1+ Poikilocytosis 1+ Basophilic Stippling Anisocytosis 1+ Microcytosis 0 Macrocytosis 1+ Spherocytes Siderocytes Sickle Cells Target Cells Tear Drop Cells Ovalocytes Stomatocytes Helmet Cells [place] Bodies [place] Cells Acanthocytes (Spur) Rouleaux Fragmented RBCs Schistocytes PT with INR INR PTT (Actin FS) Fibrinogen Puncture Site ABG pH ABG pCO2 at Pt Temp ABG pO2 at Pt Temp ABG HCO3 ABG O2 Sat (Measured) ABG O2 Content ABG Base Excess Baldo Test O2 Delivery Device Oxygen Flow Rate Vent Mode Vent Rate Mechanical Rate PEEP Pressure Support Vent Sodium 135 L Potassium 5.8 H Chloride 102 Carbon Dioxide 7 L Anion Gap 25 H BUN 37 H Creatinine 3.2 H Creat Clearance w eGFR 15.04 POC Glucometer Random Glucose 283 H Serum Osmolality Lactic Acid Calcium 6.8 L* Phosphorus 4.6 Magnesium 2.0 Total Bilirubin 7.9 H AST 5871 H ALT 1385 H Alkaline Phosphatase 154 H Total Protein 5.4 L Albumin 2.1 L Lipase TSH Random Vancomycin Hep B Core IgM Ab HIV 1&2 Ag/Ab, 4th Gen Blood Type O NEGATIVE Antibody Screen Negative Crossmatch See Detail 05/12/18 05/12/18 05/12/18 09:10 09:10 11:09 WBC Corrected WBC (auto) RBC Hgb Hct MCV MCH MCHC RDW Plt Count MPV Absolute Neuts (auto) Total Counted Neutrophils % Neutrophils % (Manual) Band Neutrophils % Lymphocytes % Lymphocytes % (Manual) Monocytes % Monocytes % (Manual) Eosinophils % Eosinophils % (Manual) Basophils % Basophils % (Manual) Myelocytes % (Man) Promyelocytes % (Man) Blast Cells % (Manual) Nucleated RBC % Metamyelocytes Differential Comment Hypersegmented Neuts Plasma Cells Smudge Cells Other Cell Type Hypochromia Toxic Granulation Dohle Bodies Platelet Estimate Polychromasia Poikilocytosis Basophilic Stippling Anisocytosis Microcytosis Macrocytosis Spherocytes Siderocytes Sickle Cells Target Cells Tear Drop Cells Ovalocytes Stomatocytes Helmet Cells [place] Bodies [place] Cells Acanthocytes (Spur) Rouleaux Fragmented RBCs Schistocytes PT with INR INR PTT (Actin FS) Fibrinogen Puncture Site ABG pH ABG pCO2 at Pt Temp ABG pO2 at Pt Temp ABG HCO3 ABG O2 Sat (Measured) ABG O2 Content ABG Base Excess Baldo Test O2 Delivery Device Oxygen Flow Rate Vent Mode Vent Rate Mechanical Rate PEEP Pressure Support Vent Sodium Potassium Chloride Carbon Dioxide Anion Gap BUN Creatinine Creat Clearance w eGFR POC Glucometer [phone] Random Glucose Serum Osmolality Lactic Acid Calcium Phosphorus Magnesium Total Bilirubin AST ALT Alkaline Phosphatase Total Protein Albumin Lipase TSH Random Vancomycin Hep B Core IgM Ab Negative HIV 1&2 Ag/Ab, 4th Gen Non reactive Blood Type Antibody Screen Crossmatch 05/12/18 05/12/18 05/12/18 11:59 12:01 12:10 WBC Corrected WBC (auto) RBC Hgb Hct MCV MCH MCHC RDW Plt Count MPV Absolute Neuts (auto) Total Counted Neutrophils % Neutrophils % (Manual) Band Neutrophils % Lymphocytes % Lymphocytes % (Manual) Monocytes % Monocytes % (Manual) Eosinophils % Eosinophils % (Manual) Basophils % Basophils % (Manual) Myelocytes % (Man) Promyelocytes % (Man) Blast Cells % (Manual) Nucleated RBC % Metamyelocytes Differential Comment Hypersegmented Neuts Plasma Cells Smudge Cells Other Cell Type Hypochromia Toxic Granulation Dohle Bodies Platelet Estimate Polychromasia Poikilocytosis Basophilic Stippling Anisocytosis Microcytosis Macrocytosis Spherocytes Siderocytes Sickle Cells Target Cells Tear Drop Cells Ovalocytes Stomatocytes Helmet Cells [place] Bodies [place] Cells Acanthocytes (Spur) Rouleaux Fragmented RBCs Schistocytes PT with INR INR PTT (Actin FS) Fibrinogen Puncture Site ABG pH ABG pCO2 at Pt Temp ABG pO2 at Pt Temp ABG HCO3 ABG O2 Sat (Measured) ABG O2 Content ABG Base Excess Baldo Test O2 Delivery Device Oxygen Flow Rate Vent Mode Vent Rate Mechanical Rate PEEP Pressure Support Vent Sodium 137 Potassium 4.6 Chloride 103 Carbon Dioxide 12 L Anion Gap 21 H BUN 28 H Creatinine 2.4 H Creat Clearance w eGFR 20.96 POC Glucometer Random Glucose 272 H Serum Osmolality 352 H Lactic Acid Calcium 7.3 L Phosphorus Magnesium Total Bilirubin 8.0 H AST 7574 H ALT 1718 H Alkaline Phosphatase 158 H Total Protein 5.6 L Albumin 2.3 L Lipase 1171 H TSH Random Vancomycin Hep B Core IgM Ab HIV 1&2 Ag/Ab, 4th Gen Blood Type Antibody Screen Crossmatch 05/12/18 05/12/18 05/12/18 12:30 13:11 13:40 WBC Corrected WBC (auto) RBC Hgb Hct MCV MCH MCHC RDW Plt Count MPV Absolute Neuts (auto) Total Counted Neutrophils % Neutrophils % (Manual) Band Neutrophils % Lymphocytes % Lymphocytes % (Manual) Monocytes % Monocytes % (Manual) Eosinophils % Eosinophils % (Manual) Basophils % Basophils % (Manual) Myelocytes % (Man) Promyelocytes % (Man) Blast Cells % (Manual) Nucleated RBC % Metamyelocytes Differential Comment Hypersegmented Neuts Plasma Cells Smudge Cells Other Cell Type Hypochromia Toxic Granulation Dohle Bodies Platelet Estimate Polychromasia Poikilocytosis Basophilic Stippling Anisocytosis Microcytosis Macrocytosis Spherocytes Siderocytes Sickle Cells Target Cells Tear Drop Cells Ovalocytes Stomatocytes Helmet Cells [place] Bodies [place] Cells Acanthocytes (Spur) Rouleaux Fragmented RBCs Schistocytes PT with INR INR PTT (Actin FS) Fibrinogen Puncture Site ABG pH ABG pCO2 at Pt Temp ABG pO2 at Pt Temp ABG HCO3 ABG O2 Sat (Measured) ABG O2 Content ABG Base Excess Baldo Test O2 Delivery Device Oxygen Flow Rate Vent Mode Vent Rate Mechanical Rate PEEP Pressure Support Vent Sodium Potassium Chloride Carbon Dioxide Anion Gap BUN Creatinine Creat Clearance w eGFR POC Glucometer 259.76128 Random Glucose Serum Osmolality Lactic Acid 13.3 H* Calcium Phosphorus Magnesium Total Bilirubin AST ALT Alkaline Phosphatase Total Protein Albumin Lipase TSH Random Vancomycin 16.34 Hep B Core IgM Ab HIV 1&2 Ag/Ab, 4th Gen Blood Type Antibody Screen Crossmatch 05/12/18 05/12/18 05/12/18 14:12 15:15 15:32 WBC 3.0 L Corrected WBC (auto) RBC 2.36 L Hgb 8.5 L Hct 25.3 L MCV 107.2 H D MCH 35.8 H MCHC 33.4 RDW 17.4 H Plt Count 41 L MPV 8.4 Absolute Neuts (auto) 2.4 Total Counted Cancelled Neutrophils % 80.5 Neutrophils % (Manual) Cancelled Band Neutrophils % Cancelled Lymphocytes % 16.2 D Lymphocytes % (Manual) Cancelled Monocytes % 0.6 L Monocytes % (Manual) Cancelled Eosinophils % 2.3 Eosinophils % (Manual) Cancelled Basophils % 0.4 Basophils % (Manual) Cancelled Myelocytes % (Man) Cancelled Promyelocytes % (Man) Cancelled Blast Cells % (Manual) Cancelled Nucleated RBC % 5 H Metamyelocytes Cancelled Differential Comment Cancelled Hypersegmented Neuts Cancelled Plasma Cells Cancelled Smudge Cells Cancelled Other Cell Type Cancelled Hypochromia Cancelled Toxic Granulation Cancelled Dohle Bodies Cancelled Platelet Estimate Polychromasia Cancelled Poikilocytosis Cancelled Basophilic Stippling Cancelled Anisocytosis Cancelled Microcytosis Cancelled Macrocytosis Cancelled Spherocytes Cancelled Siderocytes Cancelled Sickle Cells Cancelled Target Cells Cancelled Tear Drop Cells Cancelled Ovalocytes Cancelled Stomatocytes Cancelled Helmet Cells Cancelled [place] Bodies Cancelled [place] Cancelled [place] Cells Cancelled Acanthocytes (Spur) Cancelled Rouleaux Cancelled Fragmented RBCs Cancelled Schistocytes Cancelled PT with INR INR PTT (Actin FS) Fibrinogen Puncture Site Left radial ABG pH 7.29 L D ABG pCO2 at Pt Temp 22.1 L D ABG pO2 at Pt Temp 83.7 D ABG HCO3 10.2 L* ABG O2 Sat (Measured) 96.1 ABG O2 Content 11.1 L ABG Base Excess -14.9 L* Baldo Test Positive O2 Delivery Device Mech vent Oxygen Flow Rate Yes Vent Mode A/c Vent Rate 14 Mechanical Rate Yes PEEP 5.0 Pressure Support Vent 240 Sodium Potassium Chloride Carbon Dioxide Anion Gap BUN Creatinine Creat Clearance w eGFR POC Glucometer 220.97371 Random Glucose Serum Osmolality Lactic Acid Calcium Phosphorus Magnesium Total Bilirubin AST ALT Alkaline Phosphatase Total Protein Albumin Lipase TSH Random Vancomycin Hep B Core IgM Ab HIV 1&2 Ag/Ab, 4th Gen Blood Type Antibody Screen Crossmatch 05/12/18 05/12/18 05/12/18 15:59 17:20 18:06 WBC 3.6 L Corrected WBC (auto) RBC 2.26 L Hgb 8.0 L Hct 24.2 L MCV 107.1 H MCH 35.6 H MCHC 33.2 RDW 18.0 H Plt Count 38 L MPV 7.9 Absolute Neuts (auto) 3.2 Total Counted Cancelled Neutrophils % 87.4 H Neutrophils % (Manual) Cancelled Band Neutrophils % Cancelled Lymphocytes % 10.8 D Lymphocytes % (Manual) Cancelled Monocytes % 0.4 L Monocytes % (Manual) Cancelled Eosinophils % 1.1 Eosinophils % (Manual) Cancelled Basophils % 0.3 Basophils % (Manual) Cancelled Myelocytes % (Man) Cancelled Promyelocytes % (Man) Cancelled Blast Cells % (Manual) Cancelled Nucleated RBC % 4 H Metamyelocytes Cancelled Differential Comment Cancelled Hypersegmented Neuts Cancelled Plasma Cells Cancelled Smudge Cells Cancelled Other Cell Type Cancelled Hypochromia Cancelled Toxic Granulation Cancelled Dohle Bodies Cancelled Platelet Estimate Polychromasia Cancelled Poikilocytosis Cancelled Basophilic Stippling Cancelled Anisocytosis Cancelled Microcytosis Cancelled Macrocytosis Cancelled Spherocytes Cancelled Siderocytes Cancelled Sickle Cells Cancelled Target Cells Cancelled Tear Drop Cells Cancelled Ovalocytes Cancelled Stomatocytes Cancelled Helmet Cells Cancelled [place] Bodies Cancelled [place] Cancelled [place] Cells Cancelled Acanthocytes (Spur) Cancelled Rouleaux Cancelled Fragmented RBCs Cancelled Schistocytes Cancelled PT with INR INR PTT (Actin FS) Fibrinogen Puncture Site ABG pH ABG pCO2 at Pt Temp ABG pO2 at Pt Temp ABG HCO3 ABG O2 Sat (Measured) ABG O2 Content ABG Base Excess Baldo Test O2 Delivery Device Oxygen Flow Rate Vent Mode Vent Rate Mechanical Rate PEEP Pressure Support Vent Sodium Potassium Chloride Carbon Dioxide Anion Gap BUN Creatinine Creat Clearance w eGFR POC Glucometer 216.39988 210.85647 Random Glucose Serum Osmolality Lactic Acid Calcium Phosphorus Magnesium Total Bilirubin AST ALT Alkaline Phosphatase Total Protein Albumin Lipase TSH Random Vancomycin Hep B Core IgM Ab HIV 1&2 Ag/Ab, 4th Gen Blood Type Antibody Screen Crossmatch 05/12/18 05/13/18 05/13/18 21:18 01:00 01:00 WBC 4.9 Corrected WBC (auto) 4.41 RBC 2.14 L Hgb 7.5 L Hct 23.2 L MCV 108.4 H MCH 35.2 H MCHC 32.5 RDW 19.2 H Plt Count 41 L MPV 9.0 D Absolute Neuts (auto) 1.1 L Total Counted Neutrophils % 21.8 L D Neutrophils % (Manual) 55.1 Band Neutrophils % 11.2 Lymphocytes % 16.2 D Lymphocytes % (Manual) 21.4 D Monocytes % 59.8 H D Monocytes % (Manual) 1 L Eosinophils % 2.0 D Eosinophils % (Manual) 1.0 Basophils % 0.2 Basophils % (Manual) 0.0 Myelocytes % (Man) 2 D Promyelocytes % (Man) 0 Blast Cells % (Manual) 0 Nucleated RBC % 7 H Metamyelocytes 8 H D Differential Comment Hypersegmented Neuts Plasma Cells Smudge Cells Other Cell Type Hypochromia 2+ Toxic Granulation Dohle Bodies Platelet Estimate Decreased Polychromasia 0 Poikilocytosis 0 Basophilic Stippling Anisocytosis 2+ Microcytosis 2+ Macrocytosis 0 Spherocytes Siderocytes Sickle Cells Target Cells Tear Drop Cells Ovalocytes Stomatocytes Helmet Cells [place] Bodies [place] Elizabeth Cells Acanthocytes (Spur) Rouleaux Fragmented RBCs Schistocytes PT with INR INR PTT (Actin FS) Fibrinogen Puncture Site ABG pH ABG pCO2 at Pt Temp ABG pO2 at Pt Temp ABG HCO3 ABG O2 Sat (Measured) ABG O2 Content ABG Base Excess Baldo Test O2 Delivery Device Oxygen Flow Rate Vent Mode Vent Rate Mechanical Rate PEEP Pressure Support Vent Sodium 138 Potassium 2.8 L* Chloride 97 L Carbon Dioxide 10 L Anion Gap 30 H BUN 23 H Creatinine 3.4 H Creat Clearance w eGFR 14.02 POC Glucometer [phone] Random Glucose 158 H Serum Osmolality Lactic Acid Calcium 6.9 L* Phosphorus Magnesium Total Bilirubin 7.8 H AST 9483 H ALT 1819 H Alkaline Phosphatase 168 H Total Protein 5.0 L Albumin 2.2 L Lipase TSH Random Vancomycin Hep B Core IgM Ab HIV 1&2 Ag/Ab, 4th Gen Blood Type Antibody Screen Crossmatch 05/13/18 05/13/18 05/13/18 01:00 05:30 05:30 WBC 10.0 Corrected WBC (auto) RBC 2.13 L Hgb 7.5 L Hct 23.2 L MCV 108.8 H MCH 35.4 H MCHC 32.6 RDW 19.1 H Plt Count 32 L* D MPV 9.6 Absolute Neuts (auto) 7.2 Total Counted Neutrophils % 72.4 D Neutrophils % (Manual) Band Neutrophils % Lymphocytes % 13.1 Lymphocytes % (Manual) Monocytes % 0.4 L D Monocytes % (Manual) Eosinophils % 13.8 H D Eosinophils % (Manual) Basophils % 0.3 Basophils % (Manual) Myelocytes % (Man) Promyelocytes % (Man) Blast Cells % (Manual) Nucleated RBC % 4 H Metamyelocytes Differential Comment Hypersegmented Neuts Plasma Cells Smudge Cells Other Cell Type Hypochromia Toxic Granulation Dohle Bodies Platelet Estimate Polychromasia Poikilocytosis Basophilic Stippling Anisocytosis Microcytosis Macrocytosis Spherocytes Siderocytes Sickle Cells Target Cells Tear Drop Cells Ovalocytes Stomatocytes Helmet Cells [place] Bodies [place] Cells Acanthocytes (Spur) Rouleaux Fragmented RBCs Schistocytes PT with INR INR PTT (Actin FS) Fibrinogen Puncture Site ABG pH ABG pCO2 at Pt Temp ABG pO2 at Pt Temp ABG HCO3 ABG O2 Sat (Measured) ABG O2 Content ABG Base Excess Baldo Test O2 Delivery Device Oxygen Flow Rate Vent Mode Vent Rate Mechanical Rate PEEP Pressure Support Vent Sodium 135 L Potassium 3.3 L Chloride 95 L Carbon Dioxide 9 L Anion Gap 31 H BUN 24 H Creatinine 3.8 H Creat Clearance w eGFR 12.33 POC Glucometer Random Glucose 144 H Serum Osmolality Lactic Acid 21.8 H* Calcium 6.8 L* Phosphorus 2.0 L Magnesium 1.4 L Total Bilirubin 8.4 H AST 8393 H ALT 1741 H Alkaline Phosphatase 159 H Total Protein 5.0 L Albumin 2.2 L Lipase 2990 H TSH 0.52 Random Vancomycin Hep B Core IgM Ab HIV 1&2 Ag/Ab, 4th Gen Blood Type Antibody Screen Crossmatch 05/13/18 05/13/18 05/13/18 05:30 05:33 06:00 WBC Corrected WBC (auto) RBC Hgb Hct MCV MCH MCHC RDW Plt Count MPV Absolute Neuts (auto) Total Counted Neutrophils % Neutrophils % (Manual) Band Neutrophils % Lymphocytes % Lymphocytes % (Manual) Monocytes % Monocytes % (Manual) Eosinophils % Eosinophils % (Manual) Basophils % Basophils % (Manual) Myelocytes % (Man) Promyelocytes % (Man) Blast Cells % (Manual) Nucleated RBC % Metamyelocytes Differential Comment Hypersegmented Neuts Plasma Cells Smudge Cells Other Cell Type Hypochromia Toxic Granulation Dohle Bodies Platelet Estimate Polychromasia Poikilocytosis Basophilic Stippling Anisocytosis Microcytosis Macrocytosis Spherocytes Siderocytes Sickle Cells Target Cells Tear Drop Cells Ovalocytes Stomatocytes Helmet Cells [place] Bodies [place] Elizabeth Cells Acanthocytes (Spur) Rouleaux Fragmented RBCs Schistocytes PT with INR INR PTT (Actin FS) Fibrinogen Puncture Site Right radial ABG pH 7.21 L* ABG pCO2 at Pt Temp 23.2 L ABG pO2 at Pt Temp 195.0 H* ABG HCO3 8.9 L* ABG O2 Sat (Measured) 99.2 H ABG O2 Content 11.1 L ABG Base Excess -17.5 L* Baldo Test Positive O2 Delivery Device Mech vent Oxygen Flow Rate 100% Vent Mode A/c Vent Rate 14 Mechanical Rate Yes PEEP 5.0 Pressure Support Vent 500 Sodium Cancelled Potassium Cancelled Chloride Cancelled Carbon Dioxide Cancelled Anion Gap Cancelled BUN Cancelled Creatinine Cancelled Creat Clearance w eGFR Cancelled POC Glucometer 155.31379 Random Glucose Cancelled Serum Osmolality Lactic Acid Calcium Cancelled Phosphorus Magnesium Total Bilirubin Cancelled AST Cancelled ALT Cancelled Alkaline Phosphatase Cancelled Total Protein Cancelled Albumin Cancelled Lipase TSH Random Vancomycin Hep B Core IgM Ab HIV 1&2 Ag/Ab, 4th Gen Blood Type Antibody Screen Crossmatch 05/13/18 05/13/18 05/13/18 07:31 08:00 08:00 WBC Corrected WBC (auto) RBC Hgb Hct MCV MCH MCHC RDW Plt Count MPV Absolute Neuts (auto) Total Counted Neutrophils % Neutrophils % (Manual) Band Neutrophils % Lymphocytes % Lymphocytes % (Manual) Monocytes % Monocytes % (Manual) Eosinophils % Eosinophils % (Manual) Basophils % Basophils % (Manual) Myelocytes % (Man) Promyelocytes % (Man) Blast Cells % (Manual) Nucleated RBC % Metamyelocytes Differential Comment Hypersegmented Neuts Plasma Cells Smudge Cells Other Cell Type Hypochromia Toxic Granulation Dohle Bodies Platelet Estimate Polychromasia Poikilocytosis Basophilic Stippling Anisocytosis Microcytosis Macrocytosis Spherocytes Siderocytes Sickle Cells Target Cells Tear Drop Cells Ovalocytes Stomatocytes Helmet Cells [place] Bodies [place] Elizabeth Cells Acanthocytes (Spur) Rouleaux Fragmented RBCs Schistocytes PT with INR 32.10 H INR 2.69 H PTT (Actin FS) 31.5 Fibrinogen 145.0 L Puncture Site ABG pH ABG pCO2 at Pt Temp ABG pO2 at Pt Temp ABG HCO3 ABG O2 Sat (Measured) ABG O2 Content ABG Base Excess Baldo Test O2 Delivery Device Oxygen Flow Rate Vent Mode Vent Rate Mechanical Rate PEEP Pressure Support Vent Sodium Potassium Chloride Carbon Dioxide Anion Gap BUN Creatinine Creat Clearance w eGFR POC Glucometer Random Glucose Serum Osmolality Lactic Acid 20.9 H* Calcium Phosphorus Magnesium Total Bilirubin AST ALT Alkaline Phosphatase Total Protein Albumin Lipase TSH Random Vancomycin Hep B Core IgM Ab HIV 1&2 Ag/Ab, 4th Gen Blood Type Antibody Screen Crossmatch 05/13/18 08:00 WBC Corrected WBC (auto) RBC Hgb Hct MCV MCH MCHC RDW Plt Count MPV Absolute Neuts (auto) Total Counted Neutrophils % Neutrophils % (Manual) Band Neutrophils % Lymphocytes % Lymphocytes % (Manual) Monocytes % Monocytes % (Manual) Eosinophils % Eosinophils % (Manual) Basophils % Basophils % (Manual) Myelocytes % (Man) Promyelocytes % (Man) Blast Cells % (Manual) Nucleated RBC % Metamyelocytes Differential Comment Hypersegmented Neuts Plasma Cells Smudge Cells Other Cell Type Hypochromia Toxic Granulation Dohle Bodies Platelet Estimate Polychromasia Poikilocytosis Basophilic Stippling Anisocytosis Microcytosis Macrocytosis Spherocytes Siderocytes Sickle Cells Target Cells Tear Drop Cells Ovalocytes Stomatocytes Helmet Cells [place] Bodies [place] Elizabeth Cells Acanthocytes (Spur) Rouleaux Fragmented RBCs Schistocytes PT with INR INR PTT (Actin FS) Fibrinogen Cancelled Puncture Site ABG pH ABG pCO2 at Pt Temp ABG pO2 at Pt Temp ABG HCO3 ABG O2 Sat (Measured) ABG O2 Content ABG Base Excess Baldo Test O2 Delivery Device Oxygen Flow Rate Vent Mode Vent Rate Mechanical Rate PEEP Pressure Support Vent Sodium Potassium Chloride Carbon Dioxide Anion Gap BUN Creatinine Creat Clearance w eGFR POC Glucometer Random Glucose Serum Osmolality Lactic Acid Calcium Phosphorus Magnesium Total Bilirubin AST ALT Alkaline Phosphatase Total Protein Albumin Lipase TSH Random Vancomycin Hep B Core IgM Ab HIV 1&2 Ag/Ab, 4th Gen Blood Type Antibody Screen Crossmatch Active Medications Generic Name Dose Route Start Last Admin Trade Name Freq PRN Reason Stop Dose Admin Albumin Human 12.5 gm 05/13/18 08:15 Albumin Human 25% IVPB Q30M [place] Chlorhexidine Gluconate 1 applic 05/12/18 22:00 05/12/18 21:23 Hibiclens For Decolonization - TP 1 applic HS [facility] Administration Dextrose 25 gm 05/12/18 00:06 D50w (Vial) - IVPUSH PRN PRN HYPOGLYCEMIA Diphenhydramine HCl 50 mg 05/12/18 00:26 Benadryl Injection - IVPUSH Q4H PRN FOR ITCHING Norepinephrine Bitartrate 8, 500 mls @ 18.75 mls/hr 05/12/18 04:00 05/13/18 08:39 000 mcg/ Dextrose IV 30 mcg/min TITR [facility] 112.5 mls/hr Administration Protocol 5 MCG/MIN Vasopressin 50 units/ Sodium 100 mls @ 4.8 mls/hr 05/12/18 05:30 05/13/18 05: 56 Chloride IVPB Not Given ASDIR [facility] Protocol 2.4 UNITS/HR Piperacillin Sod/Tazobactam 50 mls @ 100 mls/hr 05/12/18 15:30 05/13/18 09:49 Sod 2.25 gm/ Dextrose IVPB 100 mls/hr Q8H-IV [facility] Administration Protocol Octreotide Acetate 1,200 mcg/ 500 mls @ 20.83 mls/hr 05/12/18 18:00 05/12/18 21:23 Dextrose IVPB 20.83 mls/hr ASDIR [facility] Administration Protocol 50 MCG/HR Sodium Chloride 250 mls @ 3,000 mls/hr 05/13/18 08:08 Normal Saline - IV 05/14/18 08:08 PRN PRN Hypotension during Dialysis Lactated Ringer's 1,000 ml in 1,000 mls @ 75 mls/hr 05/13/18 08:45 05/13/18 09:36 Lactated Ringers Solution IV 75 mls/hr ASDIR [facility] Administration Potassium Phosphate 30 mm/ 260 mls @ 43.33 mls/hr 05/13/18 09:01 Sodium Chloride IVPB 05/13/18 15:01 ONCE ONE 30 MM/6 HR Ibuprofen 400 mg 05/13/18 08:19 05/13/18 09:34 Caldolor Injection - IVPB 400 mg Q8H PRN Administration FEVER Levothyroxine Sodium 50 mcg 05/12/18 10:00 05/13/18 09:51 Synthroid Injection - IVPUSH 50 mcg DAILY [facility] Administration Mupirocin 1 applic 05/12/18 10:00 05/13/18 10:05 Bactroban Ointment (For Decolonization) - NS 05/17/18 09:59 1 applic BID [facility] Administration Ondansetron HCl 4 mg 05/12/18 00:27 Zofran Injection IVPUSH Q4H PRN NAUSEA AND/OR VOMITING Pantoprazole Sodium 40 mg 05/12/18 10:00 05/13/18 09:50 Protonix Iv IVPUSH 40 mg DAILY [facility] Administration Rifaximin 550 mg 05/11/18 22:00 05/13/18 09:50 Xifaxan - PO Not Given BID [facility] ASSESSMENT/PLAN: Dispo: We will continue to follow the patient. Thank you for this consultative opportunity. Problem List - Problems (1) Thrombocytopenia Assessment/Plan: most likely multifactorial Liver disease, hypersplenism and septic shock. * As she is actively bleeding transfuse to maintain Plt >50K * In terms of his coagulopathy can transfuse FFP. goal is fibrinogen > 100 * unsure how much vitamin K will help given that his is not caused by coumadin * will continue to monitor * repeat CBC, PT/PTT, and fibrinogen (2) Septic shock Assessment/Plan: requiring increased pressor support. * aggressive IV hydration * maintain MAP >65 * continue to monitor for multiorgan failure (3) Acute respiratory failure with hypercapnia Assessment/Plan: Intubated and sedated * management as per ICU team (4) GI bleed Assessment/Plan: GI has been consulted. * transfuse to maintain Hgb >7 * FFP and Plt to correct coagulopathy (5) Hepatic failure Visit type - Emergency Visit Emergency Visit: Yes ED Registration Date: 05/12/18 Care time: The patient presented to the Emergency Department on the above date and was hospitalized for further evaluation of their emergent condition. - New Patient This patient is new to me today: Yes Date on this admission: 05/13/18 - Critical Care Critical Care patient: Yes Total Critical Care Time (in minutes): 45 Critical Care Statement: The care of this patient involved high complexity decision making to prevent further life threatening deterioration of the patient 's condition and/or to evaluate & treat vital organ system(s) failure or risk of failure.
[2018-05-13] MEDS ORDERED: SODIUM CHLORIDE 250 ML IV PRN (11:00)
--- NOTE | 2018-05-13 11:31 | PN ---
Teaching Attending Note Name of Resident: Wilmar Holland ATTENDING PHYSICIAN STATEMENT I saw and evaluated the patient. I reviewed the resident's note and discussed the case with the resident. I agree with the resident's findings and plan as documented. SUBJECTIVE: Pt seen and examined in the ICU. Remains intubated, sedated on levophed and vasopressin gtts. Tolerated HD yesterday. Febrile this AM. Oral mucosal and GI bleeding. OBJECTIVE: Vital Signs Period Temp Pulse Resp BP Sys/Aguero Pulse Ox Last 24 Hr 97.5 F-103.4 F 90-110 13-92 88-137/35-82 93-98 Intake & Output 05/10/18 05/11/18 05/12/18 05/13/18 23:59 23:59 23:59 23:59 Intake Total 3000 9577 3428 Output Total 100 125 50 Balance 2900 9452 3378 Weight 81.647 kg 87.997 kg Gen: intubated, sedated, tachypneic Heart: tachycardic, regular Lung: bilateral rhonchi Abd: soft, nontender Ext: no edema CBC, BMP 05/13/18 05:30 05/13/18 05:30 Active Medications Albumin Human (Albumin Human 25%) 12.5 gm IVPB Q30M [facility] Chlorhexidine Gluconate (Hibiclens For Decolonization -) 1 applic TP HS [facility] Last Admin: 05/12/18 21:23 Dose: 1 applic Dextrose (D50w (Vial) -) 25 gm IVPUSH PRN PRN PRN Reason: HYPOGLYCEMIA Diphenhydramine HCl (Benadryl Injection -) 50 mg IVPUSH Q4H PRN PRN Reason: FOR ITCHING Norepinephrine Bitartrate 8, (000 mcg/ Dextrose) 500 mls @ 18.75 mls/hr IV TITR [facility]; Protocol Last Admin: 05/13/18 08:39 Dose: 30 mcg/min, 112.5 mls/hr Vasopressin 50 units/ Sodium (Chloride) 100 mls @ 4.8 mls/hr IVPB ASDIR [facility]; Protocol Last Admin: 05/13/18 10:41 Dose: 6 units/hr, 12 mls/hr Piperacillin Sod/Tazobactam (Sod 2.25 gm/ Dextrose) 50 mls @ 100 mls/hr IVPB Q8H-IV [facility]; Protocol Last Admin: 05/13/18 09:49 Dose: 100 mls/hr Octreotide Acetate 1,200 mcg/ (Dextrose) 500 mls @ 20.83 mls/hr IVPB ASDIR [facility] ; Protocol Last Admin: 05/12/18 21:23 Dose: 20.83 mls/hr Sodium Chloride (Normal Saline -) 250 mls @ 3,000 mls/hr IV PRN PRN PRN Reason: Hypotension during Dialysis Stop: 05/14/18 10:59 Lactated Ringer's (Lactated Ringers Solution) 1,000 ml in 1,000 mls @ 75 mls/ hr IV ASDIR [facility] Last Admin: 05/13/18 09:36 Dose: 75 mls/hr Potassium Phosphate 30 mm/ (Sodium Chloride) 260 mls @ 43.33 mls/hr IVPB ONCE ONE Stop: 05/13/18 15:01 Last Admin: 05/13/18 10:40 Dose: 43.33 mls/hr Ibuprofen (Caldolor Injection -) 400 mg IVPB Q8H PRN PRN Reason: FEVER Last Admin: 05/13/18 09:34 Dose: 400 mg Levothyroxine Sodium (Synthroid Injection -) 50 mcg IVPUSH DAILY [facility] Last Admin: 05/13/18 09:51 Dose: 50 mcg Mupirocin (Bactroban Ointment (For Decolonization) -) 1 applic NS BID [facility] Stop: 05/17/18 09:59 Last Admin: 05/13/18 10:05 Dose: 1 applic Ondansetron HCl (Zofran Injection) 4 mg IVPUSH Q4H PRN PRN Reason: NAUSEA AND/OR VOMITING Pantoprazole Sodium (Protonix Iv) 40 mg IVPUSH DAILY [facility] Last Admin: 05/13/18 09:50 Dose: 40 mg Rifaximin (Xifaxan -) 550 mg PO BID [facility] Last Admin: 05/13/18 09:50 Dose: Not Given ASSESSMENT AND PLAN: Acute Respiratory Failure r/o Pneumonia Acute Pancreatitis Septic Shock Severe Metabolic Acidosis Acute Kidney Injury requiring HD Hyperkalemia improving Lactic Acidosis Liver Cirrhosis Alcohol Abuse Thrombocytopenia Coagulopathy GI Bleed Anemia - continue antibiotics - f/u cultures - IVF to keep CVP 8-12 - titrate pressors to maintain MAP >65 - HD per renal - monitor urine output, creatinine - monitor lytes - trend lactate - monitor lipase - protonix, octreotide gtt - transfuse FFP, platelets, PRBC - monitor CBC, coags, fibrinogen - f/u echocardiogram - sedate for vent synchrony - NPO - DVT/GI prophylaxis - prognosis guarded, continue discussions regarding advanced directives and goals of care critical care time spent in reviewing chart, evaluating patient and formulating plan 35 min
--- NOTE | 2018-05-13 11:35 | PN ---
Progress Note, Physician Chief Complaint: Patient intubated and sedated - Current Medication List Current Medications: Active Medications Albumin Human (Albumin Human 25%) 12.5 gm IVPB Q30M [facility] Chlorhexidine Gluconate (Hibiclens For Decolonization -) 1 applic TP HS [facility] Last Admin: 05/12/18 21:23 Dose: 1 applic Dextrose (D50w (Vial) -) 25 gm IVPUSH PRN PRN PRN Reason: HYPOGLYCEMIA Diphenhydramine HCl (Benadryl Injection -) 50 mg IVPUSH Q4H PRN PRN Reason: FOR ITCHING Norepinephrine Bitartrate 8, (000 mcg/ Dextrose) 500 mls @ 18.75 mls/hr IV TITR [facility]; Protocol Last Admin: 05/13/18 08:39 Dose: 30 mcg/min, 112.5 mls/hr Vasopressin 50 units/ Sodium (Chloride) 100 mls @ 4.8 mls/hr IVPB [facility]; Protocol Last Admin: 05/13/18 10:41 Dose: 6 units/hr, 12 mls/hr Piperacillin Sod/Tazobactam (Sod 2.25 gm/ Dextrose) 50 mls @ 100 mls/hr IVPB Q8H-IV [facility]; Protocol Last Admin: 05/13/18 09:49 Dose: 100 mls/hr Octreotide Acetate 1,200 mcg/ (Dextrose) 500 mls @ 20.83 mls/hr IVPB ASDIR [facility] ; Protocol Last Admin: 05/12/18 21:23 Dose: 20.83 mls/hr Sodium Chloride (Normal Saline -) 250 mls @ 3,000 mls/hr IV PRN PRN PRN Reason: Hypotension during Dialysis Stop: 05/14/18 10:59 Lactated Ringer's (Lactated Ringers Solution) 1,000 ml in 1,000 mls @ 75 mls/ hr IV ASDIR [facility] Last Admin: 05/13/18 09:36 Dose: 75 mls/hr Potassium Phosphate 30 mm/ (Sodium Chloride) 260 mls @ 43.33 mls/hr IVPB ONCE ONE Stop: 05/13/18 15:01 Last Admin: 05/13/18 10:40 Dose: 43.33 mls/hr Ibuprofen (Caldolor Injection -) 400 mg IVPB Q8H PRN PRN Reason: FEVER Last Admin: 05/13/18 09:34 Dose: 400 mg Levothyroxine Sodium (Synthroid Injection -) 50 mcg IVPUSH DAILY [facility] Last Admin: 05/13/18 09:51 Dose: 50 mcg Mupirocin (Bactroban Ointment (For Decolonization) -) 1 applic NS BID [facility] Stop: 05/17/18 09:59 Last Admin: 05/13/18 10:05 Dose: 1 applic Ondansetron HCl (Zofran Injection) 4 mg IVPUSH Q4H PRN PRN Reason: NAUSEA AND/OR VOMITING Pantoprazole Sodium (Protonix Iv) 40 mg IVPUSH DAILY [facility] Last Admin: 05/13/18 09:50 Dose: 40 mg Rifaximin (Xifaxan -) 550 mg PO BID [facility] Last Admin: 05/13/18 09:50 Dose: Not Given - Objective Vital Signs: Vital Signs Temperature 39.2 C H 05/13/18 10:11 Pulse Rate 92 H 05/13/18 10:41 Respiratory Rate 28 H 05/13/18 10:15 Blood Pressure 100/45 L 05/13/18 10:41 O2 Sat by Pulse Oximetry (%) 93 L 05/13/18 08:42 Constitutional: Yes: Other (sedated) Eyes: Yes: Other (scleral edema with hemorrhage. Pupils with sluggish response) Cardiovascular: Yes: Tachycardia. No: Pulse Irregular, Gallop, Murmur, Rub Respiratory: Yes: Intubated, Mechanically Ventilated, Rhonchi. No: Rales, Wheezes Gastrointestinal: Yes: Distention, Hypoactive Bowel Sounds. No: Tenderness Extremities: Yes: WNL Edema: No Labs: CBC, BMP 05/13/18 05:30 05/13/18 05:30 INR, PTT INR 2.69 (0.83-1.09) H 05/13/18 08:00 Fibrinogen 145.0 mg/dL (238-498) L 05/13/18 08:00 Problem List - Problems (1) Acute respiratory failure with hypercapnia Code(s): J96.02 - ACUTE RESPIRATORY FAILURE WITH HYPERCAPNIA (2) Septic shock Code(s): A41.9 - SEPSIS, UNSPECIFIED ORGANISM; R65.21 - SEVERE SEPSIS WITH SEPTIC SHOCK (3) High anion gap metabolic acidosis Code(s): E87.2 - ACIDOSIS (4) Metabolic acidosis Code(s): E87.2 - ACIDOSIS (5) Acute respiratory acidosis Code(s): E87.2 - ACIDOSIS (6) Hepatic failure Code(s): K72.90 - HEPATIC FAILURE, UNSPECIFIED WITHOUT COMA Qualifiers: Liver failure chronicity: acute (7) Acute blood loss anemia Code(s): D62 - ACUTE POSTHEMORRHAGIC ANEMIA (8) GI bleed Code(s): K92.2 - GASTROINTESTINAL HEMORRHAGE, UNSPECIFIED Qualifiers: GI bleed type/associated pathology: unspecified gastrointestinal hemorrhage type Qualified Code(s): K92.2 - Gastrointestinal hemorrhage, unspecified (9) ARF (acute renal failure) Code(s): N17.9 - ACUTE KIDNEY FAILURE, UNSPECIFIED Qualifiers: Acute renal failure type: unspecified Qualified Code(s): N17.9 - Acute kidney failure, unspecified (10) Thrombocytopenia Code(s): D69.6 - THROMBOCYTOPENIA, UNSPECIFIED (11) Hypothyroid Code(s): E03.9 - HYPOTHYROIDISM, UNSPECIFIED Qualifiers: (12) Pancreatitis, acute Code(s): K85.90 - ACUTE PANCREATITIS WITHOUT NECROSIS OR INFECTION, UNSP Qualifiers: Pancreatitis type: alcohol induced (13) DIC (disseminated intravascular coagulation) Code(s): D65 - DISSEMINATED INTRAVASCULAR COAGULATION (14) Hepatic encephalopathy Code(s): K72.90 - HEPATIC FAILURE, UNSPECIFIED WITHOUT COMA Assessment/Plan (1) Acute respiratory failure with hypercapnia Assessment/Plan: -no improvement -continue mechanical ventilation Code(s): J96.02 - ACUTE RESPIRATORY FAILURE WITH HYPERCAPNIA (2) Septic shock Assessment/Plan: -case d/w ID -continue zosyn -suspect abdominal source, either pancreatic or ischemic colitis -level of lactic acid c/w necrosis of organs -unstable for CT scan Code(s): A41.9 - SEPSIS, UNSPECIFIED ORGANISM; R65.21 - SEVERE SEPSIS WITH SEPTIC SHOCK (3) High anion gap metabolic acidosis Assessment/Plan: -secondary to lactic acid -case d/w nephrology -emergent HD -mechanical ventilation for respiratory compensation Code(s): E87.2 - ACIDOSIS (4) Metabolic acidosis Assessment/Plan: -patient with a mixed acidosis -bicarb gtt contraindicated secondary to hypokalemia -case d/w Dr Gray -continue hydration with LR and HD today Code(s): E87.2 - ACIDOSIS (5) Acute respiratory acidosis Assessment/Plan: -continue mechanical ventilation Code(s): E87.2 - ACIDOSIS (6) Hepatic failure Assessment/Plan: -combination of chronic alcohol use and shock liver -INR elevated -GI consulted and appreciate assistance Code(s): K72.90 - HEPATIC FAILURE, UNSPECIFIED WITHOUT COMA (7) Acute blood loss anemia Assessment/Plan: -now with DIC -hematology consulted Code(s): D62 - ACUTE POSTHEMORRHAGIC ANEMIA (8) GI bleed Assessment/Plan: -GI consult -on IV protonix and octreotide gtt Code(s): K92.2 - GASTROINTESTINAL HEMORRHAGE, UNSPECIFIED (9) ARF (acute renal failure) Assessment/Plan: -case d/w Dr Gray -emergent HD Code(s): N17.9 - ACUTE KIDNEY FAILURE, UNSPECIFIED Qualifiers: Acute renal failure type: unspecified Qualified Code(s): N17.9 - Acute kidney failure, unspecified (10) Thrombocytopenia Assessment/Plan: -platelet transfusion secondary to acute bleed Code(s): D69.6 - THROMBOCYTOPENIA, UNSPECIFIED (11) Hypothyroid Assessment/Plan: -IV synthroid Code(s): E03.9 - HYPOTHYROIDISM, UNSPECIFIED Qualifiers: (12) Pancreatitis, acute Assessment/Plan: -aggressive hydration -possible underlying cause for overall picture Code(s): K85.90 - ACUTE PANCREATITIS WITHOUT NECROSIS OR INFECTION, UNSP Qualifiers: Pancreatitis type: alcohol induced (13) DIC -hematology consulted -awaiting final recommendations (14) Hepatic encephalopathy -continue rifampin Assessment/Plan 45 minutes in critical care time spent with this patient discussed with nephrology, ICU, ID attendings and hematology resident very poor prognosis
[2018-05-13 11:38] LABS: ANISOCYTOSIS 1+; MACROCYTOSIS 2+
--- NOTE | 2018-05-13 13:04 | PN ---
Progress Note, Physician History of Present Illness: Pt seen and examined at bedside. She remains in the ICU. Pt remains intubated and in ICU. - Current Medication List Current Medications: Active Medications Albumin Human (Albumin Human 25%) 12.5 gm IVPB Q30M [facility] Chlorhexidine Gluconate (Hibiclens For Decolonization -) 1 applic TP HS [facility] Last Admin: 05/12/18 21:23 Dose: 1 applic Dextrose (D50w (Vial) -) 25 gm IVPUSH PRN PRN PRN Reason: HYPOGLYCEMIA Diphenhydramine HCl (Benadryl Injection -) 50 mg IVPUSH Q4H PRN PRN Reason: FOR ITCHING Fludrocortisone Acetate (Florinef -) 0.05 mg PO DAILY [facility] Hydrocortisone Sodium Succinate (Solu-Cortef -) 50 mg IVPB Q6H-IV [facility] Norepinephrine Bitartrate 8, (000 mcg/ Dextrose) 500 mls @ 18.75 mls/hr IV TITR [facility]; Protocol Last Admin: 05/13/18 08:39 Dose: 30 mcg/min, 112.5 mls/hr Vasopressin 50 units/ Sodium (Chloride) 100 mls @ 4.8 mls/hr IVPB ASDIR [facility]; Protocol Last Admin: 05/13/18 10:41 Dose: 6 units/hr, 12 mls/hr Piperacillin Sod/Tazobactam (Sod 2.25 gm/ Dextrose) 50 mls @ 100 mls/hr IVPB Q8H-IV [facility]; Protocol Last Admin: 05/13/18 09:49 Dose: 100 mls/hr Octreotide Acetate 1,200 mcg/ (Dextrose) 500 mls @ 20.83 mls/hr IVPB ASDIR [facility] ; Protocol Last Admin: 05/12/18 21:23 Dose: 20.83 mls/hr Sodium Chloride (Normal Saline -) 250 mls @ 3,000 mls/hr IV PRN PRN PRN Reason: Hypotension during Dialysis Stop: 05/14/18 10:59 Lactated Ringer's (Lactated Ringers Solution) 1,000 ml in 1,000 mls @ 75 mls/ hr IV ASDIR [facility] Last Admin: 05/13/18 09:36 Dose: 75 mls/hr Potassium Phosphate 30 mm/ (Sodium Chloride) 260 mls @ 43.33 mls/hr IVPB ONCE ONE Stop: 05/13/18 15:01 Last Admin: 05/13/18 10:40 Dose: 43.33 mls/hr Ibuprofen (Caldolor Injection -) 400 mg IVPB Q8H PRN PRN Reason: FEVER Last Admin: 05/13/18 09:34 Dose: 400 mg Levothyroxine Sodium (Synthroid Injection -) 50 mcg IVPUSH DAILY [facility] Last Admin: 05/13/18 09:51 Dose: 50 mcg Mupirocin (Bactroban Ointment (For Decolonization) -) 1 applic NS BID [facility] Stop: 05/17/18 09:59 Last Admin: 05/13/18 10:05 Dose: 1 applic Ondansetron HCl (Zofran Injection) 4 mg IVPUSH Q4H PRN PRN Reason: NAUSEA AND/OR VOMITING Pantoprazole Sodium (Protonix Iv) 40 mg IVPUSH BID [facility] Last Admin: 05/13/18 10:00 Dose: Not Given Rifaximin (Xifaxan -) 550 mg PO BID [facility] Last Admin: 05/13/18 09:50 Dose: Not Given - Objective Vital Signs: Vital Signs Temperature 102.6 F H 05/13/18 10:11 Pulse Rate 91 H 05/13/18 12:15 Respiratory Rate 23 H 05/13/18 12:15 Blood Pressure 151/54 L 05/13/18 12:15 O2 Sat by Pulse Oximetry (%) 93 L 05/13/18 08:42 Eyes: Yes: Sclera Icterus Cardiovascular: Yes: S1, S2 Respiratory: Yes: Mechanically Ventilated Gastrointestinal: Yes: Soft, Abdomen, Obese Genitourinary: Yes: Zimmerman Present, Oliguria Musculoskeletal: Yes: Muscle Weakness Edema: Yes Edema: LUE: Trace, RUE: Trace, LLE: Trace, RLE: Trace Integumentary: Yes: Bruising Neurological: Yes: Lethargy Labs: CBC, BMP 05/13/18 05:30 05/13/18 05:30 INR, PTT INR 2.69 (0.83-1.09) H 05/13/18 08:00 Fibrinogen 145.0 mg/dL (238-498) L 05/13/18 08:00 - ....Imaging Chest X-ray: Report Reviewed Problem List - Problems (1) ARF (acute renal failure) Code(s): N17.9 - ACUTE KIDNEY FAILURE, UNSPECIFIED Qualifiers: Acute renal failure type: unspecified Qualified Code(s): N17.9 - Acute kidney failure, unspecified (2) Hyperkalemia Code(s): E87.5 - HYPERKALEMIA (3) Hypotension Code(s): I95.9 - HYPOTENSION, UNSPECIFIED Qualifiers: Hypotension type: unspecified hypotension type Qualified Code(s): I95.9 - Hypotension, unspecified Assessment/Plan Current Medications Generic Name Dose Route Start Last Admin Trade Name Freq PRN Reason Stop Dose Admin Albumin Human 12.5 gm 05/13/18 08:15 Albumin Human 25% IVPB Q30M [facility] Chlorhexidine Gluconate 1 applic 05/12/18 22:00 05/12/18 21:23 Hibiclens For Decolonization - TP 1 applic HS [facility] Administration Dextrose 25 gm 05/12/18 00:06 D50w (Vial) - IVPUSH PRN PRN HYPOGLYCEMIA Diphenhydramine HCl 50 mg 05/12/18 00:26 Benadryl Injection - IVPUSH Q4H PRN FOR ITCHING Fludrocortisone Acetate 0.05 mg 05/13/18 13:00 Florinef - PO DAILY [facility] Hydrocortisone Sodium Succinate 50 mg 05/13/18 15:00 Solu-Cortef - IVPB Q6H-IV [facility] Norepinephrine Bitartrate 8, 500 mls @ 18.75 mls/hr 05/12/18 04:00 05/13/18 08:39 000 mcg/ Dextrose IV 30 mcg/min TITR [facility] 112.5 mls/hr Administration Protocol 5 MCG/MIN Vasopressin 50 units/ Sodium 100 mls @ 4.8 mls/hr 05/12/18 05:30 05/13/18 10: 41 Chloride IVPB 6 units/hr ASDIR [facility] 12 mls/hr Administration Protocol 2.4 UNITS/HR Piperacillin Sod/Tazobactam 50 mls @ 100 mls/hr 05/12/18 15:30 05/13/18 09:49 Sod 2.25 gm/ Dextrose IVPB 100 mls/hr Q8H-IV [facility] Administration Protocol Octreotide Acetate 1,200 mcg/ 500 mls @ 20.83 mls/hr 05/12/18 18:00 05/12/18 21:23 Dextrose IVPB 20.83 mls/hr ASDIR [facility] Administration Protocol 50 MCG/HR Sodium Chloride 250 mls @ 3,000 mls/hr 05/13/18 11:00 Normal Saline - IV 05/14/18 10:59 PRN PRN Hypotension during Dialysis Lactated Ringer's 1,000 ml in 1,000 mls @ 75 mls/hr 05/13/18 08:45 05/13/18 09:36 Lactated Ringers Solution IV 75 mls/hr ASDIR [facility] Administration Potassium Phosphate 30 mm/ 260 mls @ 43.33 mls/hr 05/13/18 09:01 05/13/18 10: 40 Sodium Chloride IVPB 05/13/18 15:01 43.33 mls/hr ONCE ONE Administration 30 MM/6 HR Ibuprofen 400 mg 05/13/18 08:19 05/13/18 09:34 Caldolor Injection - IVPB 400 mg Q8H PRN Administration FEVER Levothyroxine Sodium 50 mcg 05/12/18 10:00 05/13/18 09:51 Synthroid Injection - IVPUSH 50 mcg DAILY [facility] Administration Mupirocin 1 applic 05/12/18 10:00 05/13/18 10:05 Bactroban Ointment (For Decolonization) - NS 05/17/18 09:59 1 applic BID [facility] Administration Ondansetron HCl 4 mg 05/12/18 00:27 Zofran Injection IVPUSH Q4H PRN NAUSEA AND/OR VOMITING Pantoprazole Sodium 40 mg 05/13/18 11:45 05/13/18 10:00 Protonix Iv IVPUSH Not Given BID [facility] Rifaximin 550 mg 05/11/18 22:00 05/13/18 09:50 Xifaxan - PO Not Given BID [facility] Laboratory Tests 05/12/18 05/13/18 05/13/18 12:10 01:00 05:30 Sodium 137 Potassium 4.6 Carbon Dioxide 12 L BUN 28 H Creatinine 2.4 H Lactic Acid 21.8 H* BEATRICE M-Adrian Pending LAUREN Screen Pending c-ANCA Pending Proteinase 3 (PR3) Pending p-ANCA Pending Atypical p-ANCA Pending Myeloperoxidase Ab Pending Double Strand DNA Ab Pending Glomerular Base Memb Ab Pending 05/13/18 07:31 Sodium Potassium Carbon Dioxide BUN Creatinine Lactic Acid 20.9 H* BEATRICE M-Ardian LAUREN Screen c-ANCA Proteinase 3 (PR3) p-ANCA Atypical p-ANCA Myeloperoxidase Ab Double Strand DNA Ab Glomerular Base Memb Ab Impression 1. LILIA 2. hyperkalemia 3. respiratory failure s/p intubation 4. etoh abuse 5. hx polysubstance abuse 6. hypothyroidism 7. liver cirrhosis 8. lactic acidosis 9. metabolic acidosos 10. shock 11. r/o sepsis 12. anemia 13. thrombocytopenia 14. pancreatitits Plan - will arrange for HD today - can stp bicarb drip and switch LR, potassium is dropping - will use 3k bath - unable to UF secondary to hypotension - renal workup in progress - pt in shock - GI input appreciated - cont to monitor lactic acid level - keep in ICU - pressors to a map of 65 - vent support - monitor coags - overall prognosis is poor, will follow Dr Gray
[2018-05-13] MEDS: ALBUMIN HUMAN 25% 12.5 GM/50 ML VIAL IVPB SCH ×6 (13:08→17:12)
--- NOTE | 2018-05-13 13:36 | ECHO ---
Version: 1 Name: SHELL NEAL Exam: Adult Echocardiogram Study Date: 05/13/2018, 9:13 AM Age: 57 Years MMode/2D Measurements & Calculations IVSd: 1.02 cm LVIDs: 4.0 cm LVIDd: 5.5 cm LVPWd: 0.89 cm Ao root diam: 2.9 cm LA dimension: 4.2 cm Doppler Measurements & Calculations MV E max dcelan: 138.8 cm/sec Med E/e': 13.4 MV A max declan: 41.9 cm/sec Med Peak E' Declan: 10.3 cm/sec MV E/A: 3.3 Lat E/e': 12.1 Lat Peak E' Declan: 11.5 cm/sec MR max P.0 mmHg Ao max P.4 mmHg LV V1 mean: 109.2 cm/sec Ao mean P.5 mmHg LV V1 mean P.2 mmHg Ao V2 max: 280.0 cm/sec TR max declan: 210.4 cm/sec TR max P.8 mmHg Procedure A two-dimensional transthoracic echocardiogram with color flow and Doppler was performed. The study was technically difficult with many images being suboptimal in quality. Left Ventricle The left ventricular size, thickness and function are normal. The left ventricular ejection fraction is normal. E/A reversal consistent with but not diagnostic of poor LV compliance. Regional wall motion abnormalities cannot be excluded due to limited visualization. Right Ventricle The right ventricle is not well visualized. Atria The left atrium is mildly dilated. The right atrium is mildly dilated. Mitral Valve There is moderate mitral valve thickening. Calcified mitral apparatus. There is mild to moderate nilsa ral annular calcification. There is no mitral valve stenosis. There is moderate mitral regurgitation. Tricuspid Valve There is mild tricuspid valve thickening. There is no tricuspid stenosis. There is mild tricuspid regurgitation. Right ventricular systolic pressure is normal. Aortic Valve The aortic valve is normal in structure and function. No hemodynamically significant valvular aortic stenosis. No aortic regurgitation is present. Pulmonic Valve The pulmonic valve is not well visualized. There is no pulmonic valvular stenosis. There is no pulmo mode valvular regurgitation. Great Vessels The aortic root is normal size. Pericardium/Pleura There is no pericardial effusion. Summary Statements The left ventricular size, thickness and function are normal The left ventricular ejection fraction is normal. The left atrium is mildly dilated. The right atrium is mildly dilated. There is moderate mitral valve thickening. There is mild to moderate mitral annular calcification. Calcified mitral apparatus. The study was technically difficult with many images being suboptimal in quality. Regional wall motion abnormalities cannot be excluded due to limited visualization. E/A reversal consistent with but not diagnostic of poor LV compliance There is moderate mitral regurgitation. There is mild tricuspid regurgitation. Right ventricular systolic pressure is normal. MD Ronnie Crawley 05/13/2018, 1:35 PM Ordering Physician: CYNTHIA RUSSELL Referring Physician: BONNIE NIELSEN Performed By: Mattie Alba
[2018-05-13] MEDS: FLUDROCORTISONE ACETATE 0.1 MG TABLET (FP) PO SCH (13:53)
--- NOTE | 2018-05-13 14:38 | PN ---
Progress Note, Physician History of Present Illness: patiients condition has worsened bleeding from multiple sites like dic picture - Current Medication List Current Medications: Active Medications Chlorhexidine Gluconate (Hibiclens For Decolonization -) 1 applic TP HS [place] Last Admin: 05/12/18 21:23 Dose: 1 applic Dextrose (D50w (Vial) -) 25 gm IVPUSH PRN PRN PRN Reason: HYPOGLYCEMIA Diphenhydramine HCl (Benadryl Injection -) 50 mg IVPUSH Q4H PRN PRN Reason: FOR ITCHING Fludrocortisone Acetate (Florinef -) 0.05 mg PO DAILY [place] Last Admin: 05/13/18 13:53 Dose: Not Given Hydrocortisone Sodium Succinate (Solu-Cortef -) 50 mg IVPB Q6H-IV [place] Norepinephrine Bitartrate 8, (000 mcg/ Dextrose) 500 mls @ 18.75 mls/hr IV TITR [place]; Protocol Last Admin: 05/13/18 08:39 Dose: 30 mcg/min, 112.5 mls/hr Vasopressin 50 units/ Sodium (Chloride) 100 mls @ 4.8 mls/hr IVPB ASDIR [place]; Protocol Last Admin: 05/13/18 10:41 Dose: 6 units/hr, 12 mls/hr Piperacillin Sod/Tazobactam (Sod 2.25 gm/ Dextrose) 50 mls @ 100 mls/hr IVPB Q8H-IV [place]; Protocol Last Admin: 05/13/18 09:49 Dose: 100 mls/hr Octreotide Acetate 1,200 mcg/ (Dextrose) 500 mls @ 20.83 mls/hr IVPB ASDIR [place] ; Protocol Last Admin: 05/12/18 21:23 Dose: 20.83 mls/hr Sodium Chloride (Normal Saline -) 250 mls @ 3,000 mls/hr IV PRN PRN PRN Reason: Hypotension during Dialysis Stop: 05/14/18 10:59 Lactated Ringer's (Lactated Ringers Solution) 1,000 ml in 1,000 mls @ 75 mls/ hr IV ASDIR [place] Last Admin: 05/13/18 09:36 Dose: 75 mls/hr Potassium Phosphate 30 mm/ (Sodium Chloride) 260 mls @ 43.33 mls/hr IVPB ONCE ONE Stop: 05/13/18 15:01 Last Admin: 05/13/18 10:40 Dose: 43.33 mls/hr Ibuprofen (Caldolor Injection -) 400 mg IVPB Q8H PRN PRN Reason: FEVER Last Admin: 05/13/18 09:34 Dose: 400 mg Levothyroxine Sodium (Synthroid Injection -) 50 mcg IVPUSH DAILY [facility] Last Admin: 05/13/18 09:51 Dose: 50 mcg Mupirocin (Bactroban Ointment (For Decolonization) -) 1 applic NS BID [facility] Stop: 05/17/18 09:59 Last Admin: 05/13/18 10:05 Dose: 1 applic Ondansetron HCl (Zofran Injection) 4 mg IVPUSH Q4H PRN PRN Reason: NAUSEA AND/OR VOMITING Pantoprazole Sodium (Protonix Iv) 40 mg IVPUSH BID [facility] Last Admin: 05/13/18 10:00 Dose: Not Given Rifaximin (Xifaxan -) 550 mg PO BID [facility] Last Admin: 05/13/18 09:50 Dose: Not Given - Objective Vital Signs: Vital Signs Temperature 102.6 F H 05/13/18 10:11 Pulse Rate 82 05/13/18 13:44 Respiratory Rate 26 H 05/13/18 13:44 Blood Pressure 145/58 L 05/13/18 13:44 O2 Sat by Pulse Oximetry (%) 93 L 05/13/18 08:42 Constitutional: Yes: Other HENT: Yes: Epistaxis Neck: Yes: Other Cardiovascular: Yes: Regular Rate and Rhythm, Tachycardia Respiratory: Yes: Intubated, Mechanically Ventilated Gastrointestinal: Yes: Soft, Hypoactive Bowel Sounds Musculoskeletal: Yes: WNL Extremities: Yes: Other Neurological: Yes: Other Labs: CBC, BMP 05/13/18 05:30 05/13/18 05:30 INR, PTT INR 2.69 (0.83-1.09) H 05/13/18 08:00 Fibrinogen 145.0 mg/dL (238-498) L 05/13/18 08:00 Assessment/Plan this patient who is now intubated looks like she is going into multiorgan failure and who came in with bleed and lactic acidosis.After looking at the patient and her imaging studies i am also worrying if she is developing pna on the left side gi bleed and lactic acidosis worry factor if she has intestinal ischemia , blood gases noted patient septic now patient very critical Problem List - Problems (1) Acute respiratory failure with hypercapnia Code(s): J96.02 - ACUTE RESPIRATORY FAILURE WITH HYPERCAPNIA (2) Septic shock Code(s): A41.9 - SEPSIS, UNSPECIFIED ORGANISM; R65.21 - SEVERE SEPSIS WITH SEPTIC SHOCK (3) High anion gap metabolic acidosis Code(s): E87.2 - ACIDOSIS (4) Metabolic acidosis Code(s): E87.2 - ACIDOSIS (5) Acute respiratory acidosis Code(s): E87.2 - ACIDOSIS (6) Hepatic failure Code(s): K72.90 - HEPATIC FAILURE, UNSPECIFIED WITHOUT COMA (7) Acute blood loss anemia Code(s): D62 - ACUTE POSTHEMORRHAGIC ANEMIA (8) GI bleed Code(s): K92.2 - GASTROINTESTINAL HEMORRHAGE, UNSPECIFIED (9) ARF (acute renal failure) Code(s): N17.9 - ACUTE KIDNEY FAILURE, UNSPECIFIED Qualifiers: Acute renal failure type: unspecified Qualified Code(s): N17.9 - Acute kidney failure, unspecified (10) Thrombocytopenia Code(s): D69.6 - THROMBOCYTOPENIA, UNSPECIFIED (11) Hypothyroid Code(s): E03.9 - HYPOTHYROIDISM, UNSPECIFIED Qualifiers: (12) Pancreatitis, acute Code(s): K85.90 - ACUTE PANCREATITIS WITHOUT NECROSIS OR INFECTION, UNSP Qualifiers: Pancreatitis type: alcohol induced 13 pneumonia 14 dic plan continue zosyn aggressive hydration resp support monitor bleeding gi vent as per icu gi prophylaxis prognosis poor cc 40 min
[2018-05-13] MEDS: HYDROCORTISONE SOD SUCCINATE 100 MG/2 ML VIAL IVPB SCH ×2 (15:22→21:34)
[2018-05-13 19:09] LABS: BASO % 0.2 % (0-2.0); EOS % 6.3 % (0-4.5); HEMATOCRIT 23.1 % (32.4-45.2); HEMOGLOBIN 7.5 GM/dL (10.7-15.3); LYMPH % 10.3 % (8-40); MCH 34.5 pg (25.7-33.7); MCHC 32.3 g/dl (32.0-36.0); MEAN CELL VOLUME 106.9 fl (80-96); MEAN PLT VOLUME 8.5 fl (7.5-11.1); NEUT % 82.2 % (42.8-82.8); PLATELET COUNT 76 K/MM3 (134-434); RBC 2.16 M/mm3 (3.60-5.2); RDW 21.4 % (11.6-15.6); WHITE BLOOD COUNT 5.9 K/mm3 (4.0-10.0)
--- NOTE | 2018-05-13 19:47 | PN ---
Physical Exam: SUBJECTIVE: Patient seen and examined. Over night Pt. given 3 Potassium riders. Pt. had fever to 103.1 given cooling blankets as Pt. is in acute liver failure. Pt. received HD, 2 units platelets, 2 units FFP and 1 unit pRBC. Discussed GOc with boyfriend, Ten and with Sister Felicia. Felicia will talk to Pt.'s parents to get more guidance as to the extent of medical care. Felicia lives in [place] and is attempting to travel here. OBJECTIVE: Vital Signs Period Temp Pulse Resp BP Sys/Aguero Pulse Ox Last 24 Hr 98.4 F-103.4 F 77-110 13-33 88-152/35-70 93-98 GENERAL: The patient is sedated and intubated, unresponsive to verbal or tactile stimuli HEAD: Normal with no signs of gross trauma. EYES: PERRL, sclera icteric, edematous sclera with bleeding. No ptosis. ENT: Ears normal, nares patent with blood oozing, oropharynx oozing dark colored blood, no carotid bruit, moist mucous membranes. LUNGS: Mechanical ventilation, decreased breath sounds diffusely HEART: Regular rate and rhythm, S1, S2 ABDOMEN: Firm, nondistended, hypoactive bowel sounds, no guarding, no rebound EXTREMITIES: 2+ posterior tibial pulses, warm, well-perfused, LE edema, 2 <sec. capillary refill SKIN: Warm, dry, normal turgor, 8cm x 8cm ecchymosis on upper left anterior thorax, Nurse and Boyfriend endorses ecchymosiss on back Laboratory Results - last 24 hr 05/11/18 05/12/18 05/12/18 16:48 09:10 09:10 WBC Corrected WBC (auto) RBC Hgb Hct MCV MCH MCHC RDW Plt Count MPV Absolute Neuts (auto) Total Counted Neutrophils % Neutrophils % (Manual) Band Neutrophils % Lymphocytes % Lymphocytes % (Manual) Monocytes % Monocytes % (Manual) Eosinophils % Eosinophils % (Manual) Basophils % Basophils % (Manual) Myelocytes % (Man) Promyelocytes % (Man) Blast Cells % (Manual) Nucleated RBC % Metamyelocytes Differential Comment Hypersegmented Neuts Plasma Cells Smudge Cells Other Cell Type Hypochromia Toxic Granulation Dohle Bodies Platelet Estimate Polychromasia Poikilocytosis Basophilic Stippling Anisocytosis Microcytosis Macrocytosis Spherocytes Siderocytes Sickle Cells Target Cells Tear Drop Cells Ovalocytes Stomatocytes Helmet Cells Alexandra-[place] Plant Bodies Upson Rings Elizabeth Cells Acanthocytes (Spur) Rouleaux Fragmented RBCs Schistocytes PT with INR INR PTT (Actin FS) Fibrinogen Puncture Site ABG pH ABG pCO2 at Pt Temp ABG pO2 at Pt Temp ABG HCO3 ABG O2 Sat (Measured) ABG O2 Content ABG Base Excess Baldo Test O2 Delivery Device Oxygen Flow Rate Vent Mode Vent Rate Mechanical Rate PEEP Pressure Support Vent Sodium Potassium Chloride Carbon Dioxide Anion Gap BUN Creatinine Creat Clearance w eGFR POC Glucometer Random Glucose Lactic Acid Calcium Phosphorus Magnesium Total Bilirubin AST ALT Alkaline Phosphatase Total Protein Albumin Lipase TSH Random Vancomycin Hep B Core IgM Ab Negative HIV 1&2 Ag/Ab, 4th Gen Non reactive Blood Type O NEGATIVE Antibody Screen Negative Crossmatch See Detail 05/12/18 05/12/18 05/12/18 15:15 18:06 21:18 WBC Corrected WBC (auto) RBC Hgb Hct MCV MCH MCHC RDW Plt Count MPV Absolute Neuts (auto) Total Counted Cancelled Neutrophils % Neutrophils % (Manual) Cancelled Band Neutrophils % Cancelled Lymphocytes % Lymphocytes % (Manual) Cancelled Monocytes % Monocytes % (Manual) Cancelled Eosinophils % Eosinophils % (Manual) Cancelled Basophils % Basophils % (Manual) Cancelled Myelocytes % (Man) Cancelled Promyelocytes % (Man) Cancelled Blast Cells % (Manual) Cancelled Nucleated RBC % Metamyelocytes Cancelled Differential Comment Cancelled Hypersegmented Neuts Cancelled Plasma Cells Cancelled Smudge Cells Cancelled Other Cell Type Cancelled Hypochromia Cancelled Toxic Granulation Cancelled Dohle Bodies Cancelled Platelet Estimate Polychromasia Cancelled Poikilocytosis Cancelled Basophilic Stippling Cancelled Anisocytosis Cancelled Microcytosis Cancelled Macrocytosis Cancelled Spherocytes Cancelled Siderocytes Cancelled Sickle Cells Cancelled Target Cells Cancelled Tear Drop Cells Cancelled Ovalocytes Cancelled Stomatocytes Cancelled Helmet Cells Cancelled [place]andra-[place] Plant Bodies Cancelled Upson Rings Cancelled [place] Cells Cancelled Acanthocytes (Spur) Cancelled Rouleaux Cancelled Fragmented RBCs Cancelled Schistocytes Cancelled PT with INR INR PTT (Actin FS) Fibrinogen Puncture Site ABG pH ABG pCO2 at Pt Temp ABG pO2 at Pt Temp ABG HCO3 ABG O2 Sat (Measured) ABG O2 Content ABG Base Excess Baldo Test O2 Delivery Device Oxygen Flow Rate Vent Mode Vent Rate Mechanical Rate PEEP Pressure Support Vent Sodium Potassium Chloride Carbon Dioxide Anion Gap BUN Creatinine Creat Clearance w eGFR POC Glucometer [phone] Random Glucose Lactic Acid Calcium Phosphorus Magnesium Total Bilirubin AST ALT Alkaline Phosphatase Total Protein Albumin Lipase TSH Random Vancomycin Hep B Core IgM Ab HIV 1&2 Ag/Ab, 4th Gen Blood Type Antibody Screen Crossmatch 05/13/18 05/13/18 05/13/18 01:00 01:00 01:00 WBC 4.9 Corrected WBC (auto) 4.41 RBC 2.14 L Hgb 7.5 L Hct 23.2 L MCV 108.4 H MCH 35.2 H MCHC 32.5 RDW 19.2 H Plt Count 41 L MPV 9.0 D Absolute Neuts (auto) 1.1 L Total Counted Neutrophils % 21.8 L D Neutrophils % (Manual) 55.1 Band Neutrophils % 11.2 Lymphocytes % 16.2 D Lymphocytes % (Manual) 21.4 D Monocytes % 59.8 H D Monocytes % (Manual) 1 L Eosinophils % 2.0 D Eosinophils % (Manual) 1.0 Basophils % 0.2 Basophils % (Manual) 0.0 Myelocytes % (Man) 2 D Promyelocytes % (Man) 0 Blast Cells % (Manual) 0 Nucleated RBC % 7 H Metamyelocytes 8 H D Differential Comment Hypersegmented Neuts Plasma Cells Smudge Cells Other Cell Type Hypochromia 2+ Toxic Granulation Dohle Bodies Platelet Estimate Decreased Polychromasia 0 Poikilocytosis 0 Basophilic Stippling Anisocytosis 2+ Microcytosis 2+ Macrocytosis 0 Spherocytes Siderocytes Sickle Cells Target Cells Tear Drop Cells Ovalocytes Stomatocytes Helmet Cells [place]andra-[place] Plant Bodies Upson Rings [place] Cells Acanthocytes (Spur) Rouleaux Fragmented RBCs Schistocytes PT with INR INR PTT (Actin FS) Fibrinogen Puncture Site ABG pH ABG pCO2 at Pt Temp ABG pO2 at Pt Temp ABG HCO3 ABG O2 Sat (Measured) ABG O2 Content ABG Base Excess Baldo Test O2 Delivery Device Oxygen Flow Rate Vent Mode Vent Rate Mechanical Rate PEEP Pressure Support Vent Sodium 138 Potassium 2.8 L* Chloride 97 L Carbon Dioxide 10 L Anion Gap 30 H BUN 23 H Creatinine 3.4 H Creat Clearance w eGFR 14.02 POC Glucometer Random Glucose 158 H Lactic Acid 21.8 H* Calcium 6.9 L* Phosphorus Magnesium Total Bilirubin 7.8 H AST 9483 H ALT 1819 H Alkaline Phosphatase 168 H Total Protein 5.0 L Albumin 2.2 L Lipase TSH Random Vancomycin Hep B Core IgM Ab HIV 1&2 Ag/Ab, 4th Gen Blood Type Antibody Screen Crossmatch 05/13/18 05/13/18 05/13/18 05:30 05:30 05:30 WBC 10.0 Corrected WBC (auto) RBC 2.13 L Hgb 7.5 L Hct 23.2 L MCV 108.8 H MCH 35.4 H MCHC 32.6 RDW 19.1 H Plt Count 32 L* D MPV 9.6 Absolute Neuts (auto) 7.2 Total Counted Neutrophils % 72.4 D Neutrophils % (Manual) 68.6 Band Neutrophils % 5.9 Lymphocytes % 13.1 Lymphocytes % (Manual) 22.5 Monocytes % 0.4 L D Monocytes % (Manual) 1 L Eosinophils % 13.8 H D Eosinophils % (Manual) 0.0 D Basophils % 0.3 Basophils % (Manual) 0.0 Myelocytes % (Man) 0 D Promyelocytes % (Man) 0 Blast Cells % (Manual) 0 Nucleated RBC % 4 H Metamyelocytes 2 D Differential Comment Hypersegmented Neuts Plasma Cells Smudge Cells Other Cell Type Hypochromia Toxic Granulation Dohle Bodies Platelet Estimate Decreased Polychromasia Poikilocytosis Basophilic Stippling Anisocytosis 1+ Microcytosis Macrocytosis 2+ Spherocytes Siderocytes Sickle Cells Target Cells Tear Drop Cells Ovalocytes Stomatocytes Helmet Cells [place]andra-[place] Plant Bodies Upson Rings Elizabeth Cells Acanthocytes (Spur) Rouleaux Fragmented RBCs Schistocytes PT with INR INR PTT (Actin FS) Fibrinogen Puncture Site ABG pH ABG pCO2 at Pt Temp ABG pO2 at Pt Temp ABG HCO3 ABG O2 Sat (Measured) ABG O2 Content ABG Base Excess Baldo Test O2 Delivery Device Oxygen Flow Rate Vent Mode Vent Rate Mechanical Rate PEEP Pressure Support Vent Sodium 135 L Cancelled Potassium 3.3 L Cancelled Chloride 95 L Cancelled Carbon Dioxide 9 L Cancelled Anion Gap 31 H Cancelled BUN 24 H Cancelled Creatinine 3.8 H Cancelled Creat Clearance w eGFR 12.33 Cancelled POC Glucometer Random Glucose 144 H Cancelled Lactic Acid Calcium 6.8 L* Cancelled Phosphorus 2.0 L Magnesium 1.4 L Total Bilirubin 8.4 H Cancelled AST 8393 H Cancelled ALT 1741 H Cancelled Alkaline Phosphatase 159 H Cancelled Total Protein 5.0 L Cancelled Albumin 2.2 L Cancelled Lipase 2990 H TSH 0.52 Random Vancomycin Hep B Core IgM Ab HIV 1&2 Ag/Ab, 4th Gen Blood Type Antibody Screen Crossmatch 05/13/18 05/13/18 05/13/18 05:33 06:00 07:31 WBC Corrected WBC (auto) RBC Hgb Hct MCV MCH MCHC RDW Plt Count MPV Absolute Neuts (auto) Total Counted Neutrophils % Neutrophils % (Manual) Band Neutrophils % Lymphocytes % Lymphocytes % (Manual) Monocytes % Monocytes % (Manual) Eosinophils % Eosinophils % (Manual) Basophils % Basophils % (Manual) Myelocytes % (Man) Promyelocytes % (Man) Blast Cells % (Manual) Nucleated RBC % Metamyelocytes Differential Comment Hypersegmented Neuts Plasma Cells Smudge Cells Other Cell Type Hypochromia Toxic Granulation Dohle Bodies Platelet Estimate Polychromasia Poikilocytosis Basophilic Stippling Anisocytosis Microcytosis Macrocytosis Spherocytes Siderocytes Sickle Cells Target Cells Tear Drop Cells Ovalocytes Stomatocytes Helmet Cells [place]andra-[place] Bodies Upson Rings [place] Cells Acanthocytes (Spur) Rouleaux Fragmented RBCs Schistocytes PT with INR INR PTT (Actin FS) Fibrinogen Puncture Site Right radial ABG pH 7.21 L* ABG pCO2 at Pt Temp 23.2 L ABG pO2 at Pt Temp 195.0 H* ABG HCO3 8.9 L* ABG O2 Sat (Measured) 99.2 H ABG O2 Content 11.1 L ABG Base Excess -17.5 L* Baldo Test Positive O2 Delivery Device Mech vent Oxygen Flow Rate 100% Vent Mode A/c Vent Rate 14 Mechanical Rate Yes PEEP 5.0 Pressure Support Vent 500 Sodium Potassium Chloride Carbon Dioxide Anion Gap BUN Creatinine Creat Clearance w eGFR POC Glucometer [phone] Random Glucose Lactic Acid 20.9 H* Calcium Phosphorus Magnesium Total Bilirubin AST ALT Alkaline Phosphatase Total Protein Albumin Lipase TSH Random Vancomycin Hep B Core IgM Ab HIV 1&2 Ag/Ab, 4th Gen Blood Type Antibody Screen Crossmatch 05/13/18 05/13/1805/13/18 08:00 08:00 08:00 WBC Corrected WBC (auto) RBC Hgb Hct MCV MCH MCHC RDW Plt Count MPV Absolute Neuts (auto) Total Counted Neutrophils % Neutrophils % (Manual) Band Neutrophils % Lymphocytes % Lymphocytes % (Manual) Monocytes % Monocytes % (Manual) Eosinophils % Eosinophils % (Manual) Basophils % Basophils % (Manual) Myelocytes % (Man) Promyelocytes % (Man) Blast Cells % (Manual) Nucleated RBC % Metamyelocytes Differential Comment Hypersegmented Neuts Plasma Cells Smudge Cells Other Cell Type Hypochromia Toxic Granulation Dohle Bodies Platelet Estimate Polychromasia Poikilocytosis Basophilic Stippling Anisocytosis Microcytosis Macrocytosis Spherocytes Siderocytes Sickle Cells Target Cells Tear Drop Cells Ovalocytes Stomatocytes Helmet Cells [place]andra-[place] Plant Bodies Upson Rings Elizabeth Cells Acanthocytes (Spur) Rouleaux Fragmented RBCs Schistocytes PT with INR 32.10 H INR 2.69 H PTT (Actin FS) 31.5 Fibrinogen 145.0 L Cancelled Puncture Site ABG pH ABG pCO2 at Pt Temp ABG pO2 at Pt Temp ABG HCO3 ABG O2 Sat (Measured) ABG O2 Content ABG Base Excess Baldo Test O2 Delivery Device Oxygen Flow Rate Vent Mode Vent Rate Mechanical Rate PEEP Pressure Support Vent Sodium Potassium Chloride Carbon Dioxide Anion Gap BUN Creatinine Creat Clearance w eGFR POC Glucometer Random Glucose Lactic Acid Calcium Phosphorus Magnesium Total Bilirubin AST ALT Alkaline Phosphatase Total Protein Albumin Lipase TSH Random Vancomycin Hep B Core IgM Ab HIV 1&2 Ag/Ab, 4th Gen Blood Type Antibody Screen Crossmatch 05/13/18 05/13/18 05/13/18 10:42 12:50 13:28 WBC Corrected WBC (auto) RBC Hgb Hct MCV MCH MCHC RDW Plt Count MPV Absolute Neuts (auto) Total Counted Neutrophils % Neutrophils % (Manual) Band Neutrophils % Lymphocytes % Lymphocytes % (Manual) Monocytes % Monocytes % (Manual) Eosinophils % Eosinophils % (Manual) Basophils % Basophils % (Manual) Myelocytes % (Man) Promyelocytes % (Man) Blast Cells % (Manual) Nucleated RBC % Metamyelocytes Differential Comment Hypersegmented Neuts Plasma Cells Smudge Cells Other Cell Type Hypochromia Toxic Granulation Dohle Bodies Platelet Estimate Polychromasia Poikilocytosis Basophilic Stippling Anisocytosis Microcytosis Macrocytosis Spherocytes Siderocytes Sickle Cells Target Cells Tear Drop Cells Ovalocytes Stomatocytes Helmet Cells [place]andra-[place] Plant Bodies Upson Rings Elizabeth Cells Acanthocytes (Spur) Rouleaux Fragmented RBCs Schistocytes PT with INR INR PTT (Actin FS) Fibrinogen Puncture Site ABG pH ABG pCO2 at Pt Temp ABG pO2 at Pt Temp ABG HCO3 ABG O2 Sat (Measured) ABG O2 Content ABG Base Excess Baldo Test O2 Delivery Device Oxygen Flow Rate Vent Mode Vent Rate Mechanical Rate PEEP Pressure Support Vent Sodium Potassium Chloride Carbon Dioxide Anion Gap BUN Creatinine Creat Clearance w eGFR POC Glucometer 201.76480 93.38932 Random Glucose Lactic Acid Calcium Phosphorus Magnesium Total Bilirubin AST ALT Alkaline Phosphatase Total Protein Albumin Lipase TSH Random Vancomycin 4.1 L Hep B Core IgM Ab HIV 1&2 Ag/Ab, 4th Gen Blood Type Antibody Screen Crossmatch 05/13/18 05/13/18 18:00 18:00 WBC 5.9 Corrected WBC (auto) RBC 2.16 L Hgb 7.5 L Hct 23.1 L MCV 106.9 H MCH 34.5 H MCHC 32.3 RDW 21.4 H Plt Count 76 L D MPV 8.5 D Absolute Neuts (auto) 4.8 Total Counted Neutrophils % 82.2 Neutrophils % (Manual) Band Neutrophils % Lymphocytes % 10.3 D Lymphocytes % (Manual) Monocytes % 1.0 L D Monocytes % (Manual) Eosinophils % 6.3 H Eosinophils % (Manual) Basophils % 0.2 Basophils % (Manual) Myelocytes % (Man) Promyelocytes % (Man) Blast Cells % (Manual) Nucleated RBC % 4 H Metamyelocytes Differential Comment Hypersegmented Neuts Plasma Cells Smudge Cells Other Cell Type Hypochromia Toxic Granulation Dohle Bodies Platelet Estimate Polychromasia Poikilocytosis Basophilic Stippling Anisocytosis Microcytosis Macrocytosis Spherocytes Siderocytes Sickle Cells Target Cells Tear Drop Cells Ovalocytes Stomatocytes Helmet Cells [place] Bodies Upson Rings Elizabeth Cells Acanthocytes (Spur) Rouleaux Fragmented RBCs Schistocytes PT with INR INR PTT (Actin FS) Fibrinogen Puncture Site ABG pH ABG pCO2 at Pt Temp ABG pO2 at Pt Temp ABG HCO3 ABG O2 Sat (Measured) ABG O2 Content ABG Base Excess Baldo Test O2 Delivery Device Oxygen Flow Rate Vent Mode Vent Rate Mechanical Rate PEEP Pressure Support Vent Sodium Potassium Chloride Carbon Dioxide Anion Gap BUN Creatinine Creat Clearance w eGFR POC Glucometer Random Glucose Lactic Acid Calcium 7.4 L Phosphorus Magnesium Total Bilirubin AST ALT Alkaline Phosphatase Total Protein Albumin Lipase TSH Random Vancomycin Hep B Core IgM Ab HIV 1&2 Ag/Ab, 4th Gen Blood Type Antibody Screen Crossmatch Active Medications Current Medications Chlorhexidine Gluconate (Hibiclens For Decolonization -) 1 applic TP HS [place] Last Admin: 05/12/18 21:23 Dose: 1 applic Dextrose (D50w (Vial) -) 25 gm IVPUSH PRN PRN PRN Reason: HYPOGLYCEMIA Diphenhydramine HCl (Benadryl Injection -) 50 mg IVPUSH Q4H PRN PRN Reason: FOR ITCHING Fludrocortisone Acetate (Florinef -) 0.05 mg PO DAILY [place] Last Admin: 05/13/18 13:53 Dose: Not Given Hydrocortisone Sodium Succinate (Solu-Cortef -) 50 mg IVPB Q6H-IV [place] Last Admin: 05/13/18 15:22 Dose: 50 mg Norepinephrine Bitartrate 8, (000 mcg/ Dextrose) 500 mls @ 18.75 mls/hr IV TITR [place]; Protocol Last Titration: 05/13/18 18:00 Dose: 20 mcg/min, 75 mls/hr Vasopressin 50 units/ Sodium (Chloride) 100 mls @ 4.8 mls/hr IVPB ASDIR [place]; Protocol Last Admin: 05/13/18 10:41 Dose: 6 units/hr, 12 mls/hr Piperacillin Sod/Tazobactam (Sod 2.25 gm/ Dextrose) 50 mls @ 100 mls/hr IVPB Q8H-IV [place]; Protocol Last Admin: 05/13/18 17:10 Dose: 100 mls/hr Octreotide Acetate 1,200 mcg/ (Dextrose) 500 mls @ 20.83 mls/hr IVPB ASDIR [place] ; Protocol Last Admin: 05/12/18 21:23 Dose: 20.83 mls/hr Sodium Chloride (Normal Saline -) 250 mls @ 3,000 mls/hr IV PRN PRN PRN Reason: Hypotension during Dialysis Stop: 05/14/18 10:59 Lactated Ringer's (Lactated Ringers Solution) 1,000 ml in 1,000 mls @ 75 mls/ hr IV ASDIR [facility] Last Admin: 05/13/18 09:36 Dose: 75 mls/hr Levothyroxine Sodium (Synthroid Injection -) 50 mcg IVPUSH DAILY [facility] [place] Last Admin: 05/13/18 09:51 Dose: 50 mcg Mupirocin (Bactroban Ointment (For Decolonization) -) 1 applic NS BID [facility] [place] Stop: 05/17/18 09:59 Last Admin: 05/13/18 10:05 Dose: 1 applic Ondansetron HCl (Zofran Injection) 4 mg IVPUSH Q4H PRN PRN Reason: NAUSEA AND/OR VOMITING Pantoprazole Sodium (Protonix Iv) 40 mg IVPUSH BID [facility] [place] Last Admin: 05/13/18 10:00 Dose: Not Given Rifaximin (Xifaxan -) 550 mg PO BID [facility] [place] Last Admin: 05/13/18 09:50 Dose: Not Given ASSESSMENT/PLAN: A 57 y.o. F w/ PMHx. of EtoH abuse, EtoH Pancreatitis, GERD, cirrhosis and Hypothyroidism presents to the ICU in alcoholic ketoacidosis associated with lactic acidosis and respiratory failure 2/2 respiratory acidosis. Pt. was found to be hyperkalemic, hyperchloremic, hypoglycemic, transaminitis and in acute kidney failure. #Pulmonology -Acute Respiratory Failure 2/2 alcoholic ketoacidosis and associated lactic acidosis Intubated on Versed Drip, Levophed, and Vasopressin ABG: pH-6.93, pCO2-29.5, pO2-287, HCO3-5.9; f/u ABG after HD LA: 21.8-->20.9 D/C Bicarbonate Drip Vent settings: A/C, FiO2:40%, Vt: 500ml, PIF: 50, RR: 14; PSV: 8 Keep SpO2 above 92% with the lowest FiO2 requirement C/w empiric renally dosed Zosyn and Vancomycin #Gastroenterology -Upper and Lower GI bleeds GI consult( Dr. Barcenas) appreciated Protonix 40mg IVP Hold anticoagulation FOBT+ s/p 2 unit pRBC, 3 unit FFP, 4 units platelets -Transaminitis 2/2 alcohol abuse AST: 8393, ALT: 1741- now trending down. Trend CMPs -Acute on chronic Alcoholic Pancreatitis Lipase 2990 -Cirrhosis c/w Rifaximin #Endocrine -Hypothyroidism-stable c/w Levothyroxine TSH wnl started Fludrocortisone 0.05mg Daily and Hydrocortisone 50mg Q6H #Cardiology -Hypotension c/w Levophed and Vasopressin monitor BP monitor CVP A-line inserted #F/E/N -Start LR @ 75ml/hr -D/C Bicarb drip -HD for abnormal electrolytes, will replete as needed -NPO Sister Felicia's number [phone]
[2018-05-13 20:30] LABS: ANISOCYTOSIS 2+; MACROCYTOSIS 2+; PLATELET ESTIMATE DECREASED
[2018-05-13] MEDS ORDERED: MIDAZOLAM 100 MG in SODIUM CHLORIDE 100 ML IVPB SCH (21:00)
[2018-05-13] MEDS: CHLORHEXIDINE GLUCONATE 4% CLEANSER FOR DECOLONIZATION TP SCH (21:35)
[2018-05-13 22:05] LABS: ANION GAP 27 MMOL/L (8-16); BLOOD UREA NITROGEN 15 mg/dL (7-18); CALCIUM 7.7 mg/dL (8.5-10.1); CHLORIDE 98 mmol/L (98-107); CO2 10 mmol/L (21-32); CREATININE 3.1 mg/dL (0.55-1.3); POTASSIUM 5.5 mmol/L (3.5-5.1); SODIUM 135 mmol/L (136-145)
[2018-05-13 22:10] LABS: GLUCOSE,RANDOM 29 mg/dL (74-106)
[2018-05-13] MEDS ORDERED: SODIUM BICARBONATE 8.4% 50 MEQ/50 ML DISP.SYRIN IVPUSH ONE (22:21)
[2018-05-13] MEDS ORDERED: DEXTROSE 50%-WATER - 25 GM/50 ML VIAL IVPUSH ONE (22:22)
--- NOTE | 2018-05-13 22:28 | PN ---
Progress Note (short form) - Note Progress Note: patient hypoglycemic on bgm 29 Labs show hyperkalemia 5.5 lactate 20.5. EKG done with spiked t waves. HR 132 BPM MAP 65 on levo 30 (increased from 25) and 6 vaso. patient given calcium gluconate, sodium bocarb, a round of albuterol nebs and d50. insulin held until hypoglycemia is corrected. LR @ 75 switched to NS @ 75 Problem List - Problems (1) Alcoholic ketoacidosis Code(s): E87.2 - ACIDOSIS (2) Dehydration Code(s): E86.0 - DEHYDRATION (3) Hyperammonemia Code(s): E72.20 - DISORDER OF UREA CYCLE METABOLISM, UNSPECIFIED (4) Hyperkalemia Code(s): E87.5 - HYPERKALEMIA (5) Hypoglycemia Code(s): E16.2 - HYPOGLYCEMIA, UNSPECIFIED (6) Hypotension Code(s): I95.9 - HYPOTENSION, UNSPECIFIED Qualifiers: Hypotension type: unspecified hypotension type Qualified Code(s): I95.9 - Hypotension, unspecified (7) Intoxication Code(s): [id number] - (8) Acute alcohol intoxication Code(s): F10.929 - ALCOHOL USE, UNSPECIFIED WITH INTOXICATION, UNSPECIFIED Qualifiers: Complication of substance-induced condition: uncomplicated Qualified Code(s ): F10.929 - Alcohol use, unspecified with intoxication, unspecified (9) Advanced cirrhosis of liver Code(s): K74.60 - UNSPECIFIED CIRRHOSIS OF LIVER (10) Alcohol intoxication Code(s): F10.929 - ALCOHOL USE, UNSPECIFIED WITH INTOXICATION, UNSPECIFIED Qualifiers: Complication of substance-induced condition: uncomplicated Qualified Code(s ): F10.920 - Alcohol use, unspecified with intoxication, uncomplicated (11) Alcoholic cirrhosis of liver Code(s): K70.30 - ALCOHOLIC CIRRHOSIS OF LIVER WITHOUT ASCITES Qualifiers: Ascites presence: with ascites Qualified Code(s): K70.31 - Alcoholic cirrhosis of liver with ascites (12) Anemia Code(s): D64.9 - ANEMIA, UNSPECIFIED
[2018-05-13] MEDS ORDERED: SODIUM CHLORIDE 1,000 ML IV SCH (22:30)
[2018-05-13] MEDS: ALBUTEROL SO4 0.083% IH SOL 2.5 MG/3 ML VIAL.NEB. NEB SCH ×5 (22:30→22:50)
[2018-05-13] MEDS: OCTREOTIDE ACETATE 1,200 MCG in DEXTROSE 5%-WATER - 488 ML IVPB SCH (22:39)
[2018-05-13] MEDS ORDERED: DEXTROSE 50%-WATER - 25 GM/50 ML VIAL IVPUSH PRN (22:45)
[2018-05-13] MEDS ORDERED: DEXTROSE 50%-WATER 25 GM/50 ML DISP.SYRIN ONE (22:46)
[2018-05-13] MEDS ORDERED: ALBUTEROL SO4 0.083% IH SOL 2.5 MG/3 ML VIAL.NEB. NEB SCH (23:00)
[2018-05-13] MEDS ORDERED: INSULIN REGULAR HUMAN 100 UNITS/ML *VIAL IVPUSH ONE (23:07)
[2018-05-13] MEDS: SODIUM BICARBONATE 8.4% 50 MEQ/50 ML DISP.SYRIN IVPUSH ONE (23:08)
[2018-05-13] MEDS: CALCIUM GLUCONATE 10% - 1,000 MG/10 ML VIAL IVPUSH ONE (23:08)
[2018-05-13 23:10] LABS: HEMATOCRIT 20.3 % (32.4-45.2); MCH 34.8 pg (25.7-33.7); MCHC 31.8 g/dl (32.0-36.0); MEAN CELL VOLUME 109.3 fl (80-96); MEAN PLT VOLUME 8.8 fl (7.5-11.1); PLATELET COUNT 51 K/MM3 (134-434); RBC 1.86 M/mm3 (3.60-5.2); RDW 22.4 % (11.6-15.6); WHITE BLOOD COUNT 6.7 K/mm3 (4.0-10.0)
[2018-05-13 23:16] LABS: HEMOGLOBIN 6.5 GM/dL (10.7-15.3)
[2018-05-14 00:01] LABS: ANION GAP 29 MMOL/L (8-16); BLOOD UREA NITROGEN 17 mg/dL (7-18); CALCIUM 7.2 mg/dL (8.5-10.1); CHLORIDE 93 mmol/L (98-107); CO2 10 mmol/L (21-32); CREATININE 3.5 mg/dL (0.55-1.3); SODIUM 132 mmol/L (136-145)
[2018-05-14 00:09] LABS: GLUCOSE,RANDOM 309 mg/dL (74-106); POTASSIUM 6.1 mmol/L (3.5-5.1)
[2018-05-14] MEDS: SODIUM BICARBONATE 8.4% 50 MEQ/50 ML DISP.SYRIN IVPUSH ONE (00:13)
[2018-05-14] MEDS: CALCIUM GLUCONATE 10% - 1,000 MG/10 ML VIAL IVPUSH ONE (00:13)
[2018-05-14] MEDS ORDERED: DEXTROSE 50%-WATER - 25 GM/50 ML VIAL IVPUSH ONE ×3 (00:30→09:26)
[2018-05-14] MEDS ORDERED: SODIUM BICARBONATE 8.4% 50 MEQ/50 ML DISP.SYRIN IVPUSH ONE ×3 (00:30→09:02)
[2018-05-14] MEDS ORDERED: INSULIN REGULAR HUMAN 100 UNITS/ML *VIAL IVPUSH ONE ×3 (00:30→09:25)
[2018-05-14] MEDS ORDERED: CALCIUM GLUCONATE 10% - 1,000 MG/10 ML VIAL IVPUSH ONE ×3 (00:30→09:25)
[2018-05-14] MEDS: PIPERACILLIN/TAZOB 2.25 GM 2.25 GM in DEXTROSE 5%-WATER - 50 ML IVPB SCH ×2 (02:58→09:29)
[2018-05-14] MEDS: HYDROCORTISONE SOD SUCCINATE 100 MG/2 ML VIAL IVPB SCH ×2 (02:58→09:21)
[2018-05-14] MEDS ORDERED: PIPERACILLIN/TAZOBACTAM 2.25 GM VIAL IVPB ONE ×2 (02:59→09:16)
[2018-05-14] MEDS ORDERED: DEXTROSE 5%-WATER - 50 ML IVPB ONE (02:59)
[2018-05-14 04:13] LABS: ANION GAP 31 MMOL/L (8-16); BLOOD UREA NITROGEN 15 mg/dL (7-18); CALCIUM 7.6 mg/dL (8.5-10.1); CHLORIDE 97 mmol/L (98-107); CO2 8 mmol/L (21-32); CREATININE 3.5 mg/dL (0.55-1.3); GLUCOSE,RANDOM 153 mg/dL (74-106); POTASSIUM 5.4 mmol/L (3.5-5.1); SODIUM 136 mmol/L (136-145)
[2018-05-14] MEDS: ALBUTEROL SO4 0.083% IH SOL 2.5 MG/3 ML VIAL.NEB. NEB PRN ×4 (05:40→06:05)
[2018-05-14] MEDS ORDERED: ALBUTEROL SO4 0.083% IH SOL 2.5 MG/3 ML VIAL.NEB. NEB ONE ×2 (05:46→09:24)
[2018-05-14 06:15] LABS: ALLENS TEST NEGATIVE; ARTERIAL BLD GAS O2 SATURATION 85.8 % (90-98.9); ARTERIAL BLOOD GAS BASE EXCESS -24.6 meq/l (-2-2); ARTERIAL BLOOD GAS PCO2 32.6 mmHg (35-45)
[2018-05-14 06:16] LABS: ARTERIAL BLOOD GAS PO2 66.9 mmHg (80-100); ARTERIAL BLOOD GAS pH 6.92 (7.35-7.45)
[2018-05-14] MEDS: NOREPINEPHRINE BITARTRATE 8,000 MCG in DEXTROSE 5%-WATER - 492 ML IV SCH (06:18)
[2018-05-14] MEDS: VASOPRESSIN 50 UNITS in SODIUM CHLORIDE 97.5 ML IVPB SCH (06:18)
[2018-05-14] MEDS ORDERED: SODIUM BICARBONATE 8.4% 50 MEQ/50 ML VIAL IV ONE (06:57)
[2018-05-14] MEDS ORDERED: SODIUM CHLORIDE 250 ML IV PRN (07:02)
[2018-05-14 07:08] LABS: HEMOGLOBIN 8.2 GM/dL (10.7-15.3); MCH 33.5 pg (25.7-33.7); MCHC 30.5 g/dl (32.0-36.0); MEAN CELL VOLUME 109.7 fl (80-96); MEAN PLT VOLUME 8.6 fl (7.5-11.1); PLATELET COUNT 79 K/MM3 (134-434); RBC 2.46 M/mm3 (3.60-5.2); RDW 24.1 % (11.6-15.6); WHITE BLOOD COUNT 9.8 K/mm3 (4.0-10.0)
[2018-05-14] MEDS ORDERED: SODIUM BICARBONATE 8.4% - 150 MEQ in DEXTROSE 5%-WATER - 1,000 ML IVPB SCH (07:15)
[2018-05-14] MEDS ORDERED: ALBUMIN HUMAN 25% 12.5 GM/50 ML VIAL IVPB SCH (07:15)
[2018-05-14] MEDS ORDERED: PHENYLEPHRINE HCL 10,000 MCG in DEXTROSE 5%-WATER - 499 ML IV SCH (08:15)
[2018-05-14] MEDS ORDERED: PHENYLEPHRINE HCL 10 MG/1 ML SINGLE DOSE VIAL ONE (08:19)
[2018-05-14 08:37] LABS: ALBUMIN 2.6 g/dl (3.4-5.0); ALK PHOS 168 U/L (45-117); ANION GAP 32 MMOL/L (8-16); BILIRUBIN,TOTAL 10.3 mg/dL (0.2-1); BLOOD UREA NITROGEN 16 mg/dL (7-18); CALCIUM 7.7 mg/dL (8.5-10.1); CHLORIDE 93 mmol/L (98-107); CO2 7 mmol/L (21-32); CREATININE 3.6 mg/dL (0.55-1.3); GLUCOSE,RANDOM 143 mg/dL (74-106); MAGNESIUM 2.1 mg/dL (1.8-2.4); PHOSPHOROUS 8.4 mg/dL (2.5-4.9); SGOT/AST 5843 U/L (15-37); SGPT/ALT 1355 U/L (13-61); SODIUM 132 mmol/L (136-145); TOT PROT 5.3 g/dl (6.4-8.2)
[2018-05-14 08:55] LABS: POTASSIUM 6.2 mmol/L (3.5-5.1)
--- NOTE | 2018-05-14 09:02 | PN ---
Physical Exam: SUBJECTIVE: Patient seen and examined at bedside. Events noted. Remains intubated and sedated. OBJECTIVE: Vital Signs Period Temp Pulse Resp BP Sys/Aguero Pulse Ox Last 24 Hr 98.0 F-103.4 F 60-103 10-33 75-152/17-84 GENERAL: intubated and sedated. LUNGS: course breath sounds bilat. HEART:tachycardic , S1, S2 ABDOMEN: Soft, nontender, nondistended, normoactive bowel sounds EXTREMITIES: 2+ pulses, warm, well-perfused, 2+edema. modeling of feet. NEUROLOGICAL: minimal response to painful stimuli, gait not observed. Laboratory Results - last 24 hr 05/11/18 05/13/18 05/13/18 16:48 05:30 05:30 WBC RBC Hgb Hct MCV MCH MCHC RDW Plt Count MPV Absolute Neuts (auto) Neutrophils % Neutrophils % (Manual) 68.6 Band Neutrophils % 5.9 Lymphocytes % Lymphocytes % (Manual) 22.5 Monocytes % Monocytes % (Manual) 1 L Eosinophils % Eosinophils % (Manual) 0.0 D Basophils % Basophils % (Manual) 0.0 Myelocytes % (Man) 0 D Promyelocytes % (Man) 0 Blast Cells % (Manual) 0 Nucleated RBC % Metamyelocytes 2 D Manual Slide Review Hypochromia Platelet Estimate Decreased Platelet Comment Anisocytosis 1+ Macrocytosis 2+ PTT (Actin FS) Fibrinogen Puncture Site ABG pH ABG pCO2 at Pt Temp ABG pO2 at Pt Temp ABG HCO3 ABG O2 Sat (Measured) ABG O2 Content ABG Base Excess Baldo Test O2 Delivery Device Oxygen Flow Rate Vent Mode Vent Rate Mechanical Rate PEEP Pressure Support Vent Sodium Potassium Chloride Carbon Dioxide Anion Gap BUN Creatinine Creat Clearance w eGFR POC Glucometer Random Glucose Lactic Acid Calcium Phosphorus Magnesium Total Bilirubin AST ALT Alkaline Phosphatase Total Protein Albumin Lipase 2990 H Random Vancomycin Blood Type O NEGATIVE Antibody Screen Negative Crossmatch See Detail 05/13/18 05/13/18 05/13/18 05:30 07:31 08:00 WBC RBC Hgb Hct MCV MCH MCHC RDW Plt Count MPV Absolute Neuts (auto) Neutrophils % Neutrophils % (Manual) Band Neutrophils % Lymphocytes % Lymphocytes % (Manual) Monocytes % Monocytes % (Manual) Eosinophils % Eosinophils % (Manual) Basophils % Basophils % (Manual) Myelocytes % (Man) Promyelocytes % (Man) Blast Cells % (Manual) Nucleated RBC % Metamyelocytes Manual Slide Review Hypochromia Platelet Estimate Platelet Comment Anisocytosis Macrocytosis PTT (Actin FS) Fibrinogen 145.0 L Puncture Site ABG pH ABG pCO2 at Pt Temp ABG pO2 at Pt Temp ABG HCO3 ABG O2 Sat (Measured) ABG O2 Content ABG Base Excess Baldo Test O2 Delivery Device Oxygen Flow Rate Vent Mode Vent Rate Mechanical Rate PEEP Pressure Support Vent Sodium Cancelled Potassium Cancelled Chloride Cancelled Carbon Dioxide Cancelled Anion Gap Cancelled BUN Cancelled Creatinine Cancelled Creat Clearance w eGFR Cancelled POC Glucometer Random Glucose Cancelled Lactic Acid 20.9 H* Calcium Cancelled Phosphorus Magnesium Total Bilirubin Cancelled AST Cancelled ALT Cancelled Alkaline Phosphatase Cancelled Total Protein Cancelled Albumin Cancelled Lipase Random Vancomycin Blood Type Antibody Screen Crossmatch 05/13/18 05/13/18 05/13/18 08:00 10:42 12:50 WBC RBC Hgb Hct MCV MCH MCHC RDW Plt Count MPV Absolute Neuts (auto) Neutrophils % Neutrophils % (Manual) Band Neutrophils % Lymphocytes % Lymphocytes % (Manual) Monocytes % Monocytes % (Manual) Eosinophils % Eosinophils % (Manual) Basophils % Basophils % (Manual) Myelocytes % (Man) Promyelocytes % (Man) Blast Cells % (Manual) Nucleated RBC % Metamyelocytes Manual Slide Review Hypochromia Platelet Estimate Platelet Comment Anisocytosis Macrocytosis PTT (Actin FS) 31.5 Fibrinogen Puncture Site ABG pH ABG pCO2 at Pt Temp ABG pO2 at Pt Temp ABG HCO3 ABG O2 Sat (Measured) ABG O2 Content ABG Base Excess Baldo Test O2 Delivery Device Oxygen Flow Rate Vent Mode Vent Rate Mechanical Rate PEEP Pressure Support Vent Sodium Potassium Chloride Carbon Dioxide Anion Gap BUN Creatinine Creat Clearance w eGFR POC Glucometer 201.51615 Random Glucose Lactic Acid Calcium Phosphorus Magnesium Total Bilirubin AST ALT Alkaline Phosphatase Total Protein Albumin Lipase Random Vancomycin 4.1 L Blood Type Antibody Screen Crossmatch 05/13/18 05/13/18 05/13/18 13:28 18:00 18:00 WBC RBC Hgb Hct MCV MCH MCHC RDW Plt Count MPV Absolute Neuts (auto) Neutrophils % Neutrophils % (Manual) Band Neutrophils % Lymphocytes % Lymphocytes % (Manual) Monocytes % Monocytes % (Manual) Eosinophils % Eosinophils % (Manual) Basophils % Basophils % (Manual) Myelocytes % (Man) Promyelocytes % (Man) Blast Cells % (Manual) Nucleated RBC % Metamyelocytes Manual Slide Review Hypochromia Platelet Estimate Platelet Comment Anisocytosis Macrocytosis PTT (Actin FS) Fibrinogen Puncture Site ABG pH ABG pCO2 at Pt Temp ABG pO2 at Pt Temp ABG HCO3 ABG O2 Sat (Measured) ABG O2 Content ABG Base Excess Baldo Test O2 Delivery Device Oxygen Flow Rate Vent Mode Vent Rate Mechanical Rate PEEP Pressure Support Vent Sodium Potassium Chloride Carbon Dioxide Anion Gap BUN Creatinine Creat Clearance w eGFR POC Glucometer 93.70419 Random Glucose Lactic Acid 20.5 H* Calcium 7.4 L Phosphorus Magnesium Total Bilirubin AST ALT Alkaline Phosphatase Total Protein Albumin Lipase Random Vancomycin Blood Type Antibody Screen Crossmatch 05/13/18 05/13/18 05/13/18 18:00 18:00 22:22 WBC 5.9 RBC 2.16 L Hgb 7.5 L Hct 23.1 L MCV 106.9 H MCH 34.5 H MCHC 32.3 RDW 21.4 H Plt Count 76 L D MPV 8.5 D Absolute Neuts (auto) 4.8 Neutrophils % 82.2 Neutrophils % (Manual) 81.0 Band Neutrophils % Lymphocytes % 10.3 D Lymphocytes % (Manual) 9.0 D Monocytes % 1.0 L D Monocytes % (Manual) 5 D Eosinophils % 6.3 H Eosinophils % (Manual) 5.0 H D Basophils % 0.2 Basophils % (Manual) Myelocytes % (Man) Promyelocytes % (Man) Blast Cells % (Manual) Nucleated RBC % 4 H Metamyelocytes Manual Slide Review Hypochromia 2+ Platelet Estimate Decreased Platelet Comment No clumping noted Anisocytosis 2+ Macrocytosis 2+ PTT (Actin FS) Fibrinogen Puncture Site ABG pH ABG pCO2 at Pt Temp ABG pO2 at Pt Temp ABG HCO3 ABG O2 Sat (Measured) ABG O2 Content ABG Base Excess Baldo Test O2 Delivery Device Oxygen Flow Rate Vent Mode Vent Rate Mechanical Rate PEEP Pressure Support Vent Sodium 135 L Potassium 5.5 H Chloride 98 Carbon Dioxide 10 L Anion Gap 27 H BUN 15 Creatinine 3.1 H Creat Clearance w eGFR 15.60 POC Glucometer < 50 Random Glucose 29 L* Lactic Acid Calcium 7.7 L Phosphorus Magnesium Total Bilirubin AST ALT Alkaline Phosphatase Total Protein Albumin Lipase Random Vancomycin Blood Type Antibody Screen Crossmatch 05/13/18 05/13/18 05/13/18 23:01 23:01 23:01 WBC 6.7 RBC 1.86 L Hgb 6.5 L* Hct 20.3 L MCV 109.3 H MCH 34.8 H MCHC 31.8 L RDW 22.4 H Plt Count 51 L D MPV 8.8 Absolute Neuts (auto) Neutrophils % Neutrophils % (Manual) Band Neutrophils % Lymphocytes % Lymphocytes % (Manual) Monocytes % Monocytes % (Manual) Eosinophils % Eosinophils % (Manual) Basophils % Basophils % (Manual) Myelocytes % (Man) Promyelocytes % (Man) Blast Cells % (Manual) Nucleated RBC % Metamyelocytes Manual Slide Review Yes Hypochromia Platelet Estimate Platelet Comment No clumping noted Anisocytosis Macrocytosis PTT (Actin FS) Fibrinogen Puncture Site ABG pH ABG pCO2 at Pt Temp ABG pO2 at Pt Temp ABG HCO3 ABG O2 Sat (Measured) ABG O2 Content ABG Base Excess Baldo Test O2 Delivery Device Oxygen Flow Rate Vent Mode Vent Rate Mechanical Rate PEEP Pressure Support Vent Sodium 132 L Potassium 6.1 H* Chloride 93 L Carbon Dioxide 10 L Anion Gap 29 H BUN 17 Creatinine 3.5 H Creat Clearance w eGFR 13.56 POC Glucometer Random Glucose 309 H* Lactic Acid 23.1 H* Calcium 7.2 L Phosphorus Magnesium Total Bilirubin AST ALT Alkaline Phosphatase Total Protein Albumin Lipase Random Vancomycin Blood Type Antibody Screen Crossmatch 05/14/18 05/14/18 05/14/18 02:11 02:40 05:30 WBC RBC Hgb Hct MCV MCH MCHC RDW Plt Count MPV Absolute Neuts (auto) Neutrophils % Neutrophils % (Manual) Band Neutrophils % Lymphocytes % Lymphocytes % (Manual) Monocytes % Monocytes % (Manual) Eosinophils % Eosinophils % (Manual) Basophils % Basophils % (Manual) Myelocytes % (Man) Promyelocytes % (Man) Blast Cells % (Manual) Nucleated RBC % Metamyelocytes Manual Slide Review Hypochromia Platelet Estimate Platelet Comment Anisocytosis Macrocytosis PTT (Actin FS) Fibrinogen Puncture Site ABG pH ABG pCO2 at Pt Temp ABG pO2 at Pt Temp ABG HCO3 ABG O2 Sat (Measured) ABG O2 Content ABG Base Excess Baldo Test O2 Delivery Device Oxygen Flow Rate Vent Mode Vent Rate Mechanical Rate PEEP Pressure Support Vent Sodium 136 132 L Potassium 5.4 H 6.2 H* Chloride 97 L 93 L Carbon Dioxide 8 L 7 L Anion Gap 31 H 32 H BUN 15 16 Creatinine 3.5 H 3.6 H Creat Clearance w eGFR 13.56 13.13 POC Glucometer 179.18951 Random Glucose 153 H 143 H Lactic Acid Calcium 7.6 L 7.7 L Phosphorus 8.4 H Magnesium 2.1 Total Bilirubin 10.3 H AST 5843 H ALT 1355 H Alkaline Phosphatase 168 H Total Protein 5.3 L Albumin 2.6 L Lipase Random Vancomycin Blood Type Antibody Screen Crossmatch 05/14/18 05/14/18 05/14/18 05:30 05:30 06:00 WBC 9.8 RBC 2.46 L Hgb 8.2 L Hct 27.0 L D MCV 109.7 H MCH 33.5 MCHC 30.5 L RDW 24.1 H Plt Count 79 L D MPV 8.6 Absolute Neuts (auto) 8.1 H Neutrophils % [employer] Neutrophils % (Manual) Band Neutrophils % Lymphocytes % [employer] In[employer] Lymphocytes % (Manual) Monocytes % [employer] In[employer] Monocytes % (Manual) Eosinophils % [employer] In[employer] Eosinophils % (Manual) Basophils % [employer] In[employer] Basophils % (Manual) Myelocytes % (Man) Promyelocytes % (Man) Blast Cells % (Manual) Nucleated RBC % 3 H Metamyelocytes Manual Slide Review Hypochromia Platelet Estimate Platelet Comment Anisocytosis Macrocytosis PTT (Actin FS) Fibrinogen Puncture Site Right radial ABG pH 6.92 L* D ABG pCO2 at Pt Temp 32.6 L D ABG pO2 at Pt Temp 66.9 L D ABG HCO3 6.3 L* ABG O2 Sat (Measured) 85.8 L ABG O2 Content 10.0 L ABG Base Excess -24.6 L* Baldo Test Negative O2 Delivery Device Mech vent Oxygen Flow Rate 100% Vent Mode A/c Vent Rate 14 Mechanical Rate Yes PEEP 7.0 Pressure Support Vent 500 Sodium Potassium Chloride Carbon Dioxide Anion Gap BUN Creatinine Creat Clearance w eGFR POC Glucometer Random Glucose Lactic Acid Calcium Phosphorus Magnesium Total Bilirubin AST ALT Alkaline Phosphatase Total Protein Albumin Lipase 1863 H Random Vancomycin Blood Type Antibody Screen Crossmatch Active Medications Generic Name Dose Route Start Last Admin Trade Name Freq PRN Reason Stop Dose Admin Albumin Human 12.5 gm 05/14/18 07:15 Albumin Human 25% IVPB Q30M [place] Albuterol Sulfate 1 amp 05/14/18 05:38 05/14/18 06:05 Ventolin 0.083% Nebulizer Soln - NEB 1 amp Q5M PRN Administration SHORT OF BREATH/WHEEZING Chlorhexidine Gluconate 1 applic 05/12/18 22:00 05/13/18 21:35 Hibiclens For Decolonization - TP 1 applic HS [place] Administration Dextrose 25 gm 05/13/18 22:45 D50w (Vial) - IVPUSH Q5M PRN HYPOGLYCEMIA Diphenhydramine HCl 50 mg 05/12/18 00:26 Benadryl Injection - IVPUSH Q4H PRN FOR ITCHING Fludrocortisone Acetate 0.05 mg 05/13/18 13:00 05/13/18 13:53 Florinef - PO Not Given DAILY [place] Hydrocortisone Sodium Succinate 50 mg 05/13/18 15:00 05/14/18 02:58 Solu-Cortef - IVPB 50 mg Q6H-IV [place] Administration Norepinephrine Bitartrate 8, 500 mls @ 18.75 mls/hr 05/12/18 04:00 05/14/18 06:18 000 mcg/ Dextrose IV 30 mcg/min TITR [place] 112.5 mls/hr Administration Protocol 5 MCG/MIN Vasopressin 50 units/ Sodium 100 mls @ 4.8 mls/hr 05/12/18 05:30 05/14/18 06: 18 Chloride IVPB 6 units/hr ASDIR [place] 12 mls/hr Administration Protocol 2.4 UNITS/HR Piperacillin Sod/Tazobactam 50 mls @ 100 mls/hr 05/12/18 15:30 05/14/18 02:58 Sod 2.25 gm/ Dextrose IVPB 100 mls/hr Q8H-IV [place] Administration Protocol Octreotide Acetate 1,200 mcg/ 500 mls @ 20.83 mls/hr 05/12/18 18:00 05/13/18 22:39 Dextrose IVPB 20.83 mls/hr ASDIR [place] Administration Protocol 50 MCG/HR Sodium Chloride 250 mls @ 3,000 mls/hr 05/13/18 11:00 Normal Saline - IV 05/14/18 10:59 PRN PRN Hypotension during Dialysis Midazolam HCl 100 mg/ Sodium 100 mls @ 1 mls/hr 05/13/18 21:00 05/13/18 21:35 Chloride IVPB 5 mg/hr TITR [place] 5 mls/hr Administration Protocol 1 MG/HR Sodium Chloride 1,000 mls @ 75 mls/hr 05/13/18 22:30 05/13/18 22:39 Normal Saline - IV 75 mls/hr ASDIR [place] Administration Sodium Chloride 250 mls @ 3,000 mls/hr 05/14/18 07:02 Normal Saline - IV 05/15/18 07:02 PRN PRN Hypotension during Dialysis Sodium Bicarbonate 150 meq/ 1,150 mls @ 100 mls/hr 05/14/18 07:15 Dextrose IVPB Q11H [place] Phenylephrine HCl 10,000 mcg/ 500 mls @ 120 mls/hr 05/14/18 08:15 Dextrose IV TITR [place] Protocol 40 MCG/MIN Levothyroxine Sodium 50 mcg 05/12/18 10:00 05/13/18 09:51 Synthroid Injection - IVPUSH 50 mcg DAILY [place] Administration Mupirocin 1 applic 05/12/18 10:00 05/13/18 21:35 Bactroban Ointment (For Decolonization) - NS 05/17/18 09:59 1 applic BID [place] Administration Ondansetron HCl 4 mg 05/12/18 00:27 Zofran Injection IVPUSH Q4H PRN NAUSEA AND/OR VOMITING Pantoprazole Sodium 40 mg 05/13/18 11:45 05/13/18 21:34 Protonix Iv IVPUSH 40 mg BID [place] Administration Rifaximin 550 mg 05/11/18 22:00 05/13/18 21:00 Xifaxan - PO Not Given BID [place] ASSESSMENT/PLAN: Problem List - Problems (1) Thrombocytopenia Assessment/Plan: most likely multifactorial Liver disease, hypersplenism and septic shock. * As she is actively bleeding transfuse to maintain Plt >50K * In terms of his coagulopathy can transfuse FFP. goal is fibrinogen > 100 * unsure how much vitamin K will help given that his is not caused by coumadin * will continue to monitor * repeat CBC, PT/PTT, and fibrinogen (2) Septic shock Assessment/Plan: requiring increased pressor support. * aggressive IV hydration * maintain MAP >65 * continue to monitor for multiorgan failure (3) Acute respiratory failure with hypercapnia Assessment/Plan: Intubated and sedated * management as per ICU team (4) GI bleed Assessment/Plan: GI has been consulted. * transfuse to maintain Hgb >7 * FFP and Plt to correct coagulopathy (5) Hepatic failure Visit type - Emergency Visit Emergency Visit: Yes ED Registration Date: 05/12/18 Care time: The patient presented to the Emergency Department on the above date and was hospitalized for further evaluation of their emergent condition. - New Patient This patient is new to me today: No - Critical Care Critical Care patient: Yes Total Critical Care Time (in minutes): 42 Critical Care Statement: The care of this patient involved high complexity decision making to prevent further life threatening deterioration of the patient 's condition and/or to evaluate & treat vital organ system(s) failure or risk of failure.
[2018-05-14] MEDS ORDERED: SODIUM BICARBONATE 8.4% 50 MEQ/50 ML VIAL ONE (09:16)
[2018-05-14] MEDS ORDERED: DEXTROSE 5%-WATER - 100 ML IVPB ONE (09:17)
[2018-05-14] MEDS: FLUDROCORTISONE ACETATE 0.1 MG TABLET (FP) PO SCH (09:27)
[2018-05-14] MEDS: RIFAXIMIN 550 MG TABLET (UD) PO SCH (09:27)
[2018-05-14] MEDS: PANTOPRAZOLE SODIUM 40 MG VIAL IVPUSH SCH (09:27)
[2018-05-14] MEDS: MUPIROCIN 2% TOPICAL OINTMENT FOR DECOLONIZATION NS SCH (09:27)
[2018-05-14] MEDS ORDERED: PHENYLEPHRINE HCL 20,000 MCG in SODIUM CHLORIDE 248 ML IVPB SCH (09:30)
[2018-05-14] MEDS ORDERED: MORPHINE 100 MG in SODIUM CHLORIDE 98 ML IVPB SCH (10:00)
[2018-05-14] MEDS ORDERED: DEXTROSE 50%-WATER 25 GM/50 ML DISP.SYRIN ONE (10:10)
[2018-05-14] MEDS: LEVOTHYROXINE SODIUM 100 MCG VIAL IVPUSH SCH (10:12)
[2018-05-14 10:17] VITALS: BP 94/35; PULSE 69; TEMP 98.3
[2018-05-14 10:46] LABS: ANISOCYTOSIS 2+; MACROCYTOSIS 2+; OVALOCYTE 1+; PLATELET ESTIMATE DECREASED
[2018-05-14] MEDS ORDERED: morphine CARPU-JECT 4 MG/1 ML DISP.SYRIN IVPUSH ONE (11:08)
--- NOTE | 2018-05-14 11:08 | PN ---
Progress Note, Physician Chief Complaint: Patient intubated and sedated - Current Medication List Current Medications: Active Medications Morphine Sulfate 100 mg/ (Sodium Chloride) 100 mls @ 1 mls/hr IVPB TITR [place]; Protocol Stop: 05/15/18 09:59 Last Admin: 05/14/18 10:54 Dose: 1 mg/hr, 1 mls/hr - Objective Vital Signs: Vital Signs Temperature 36.8 C 05/14/18 10:00 Pulse Rate 69 05/14/18 10:00 Respiratory Rate 14 05/14/18 10:26 Blood Pressure 94/35 L 05/14/18 10:00 O2 Sat by Pulse Oximetry (%) 93 L 05/13/18 08:42 Constitutional: Yes: Obese, Other (sedated) Eyes: Yes: Other (scleral edema and hemorrhage) Cardiovascular: Yes: Bradycardia. No: Pulse Irregular, Gallop, Murmur, Rub Respiratory: Yes: Regular, Intubated, Mechanically Ventilated, Rhonchi. No: CTA Bilaterally, Rales, Wheezes Gastrointestinal: Yes: Soft, Distention, Hypoactive Bowel Sounds. No: Normal Bowel Sounds Extremities: Yes: WNL Edema: No Integumentary: Yes: Other (mottling) Labs: CBC, BMP 05/14/18 05:30 05/14/18 05:30 INR, PTT INR 2.69 (0.83-1.09) H 05/13/18 08:00 Fibrinogen 145.0 mg/dL (238-498) L 05/13/18 08:00 Problem List - Problems (1) Acute respiratory failure with hypercapnia Code(s): J96.02 - ACUTE RESPIRATORY FAILURE WITH HYPERCAPNIA (2) Septic shock Code(s): A41.9 - SEPSIS, UNSPECIFIED ORGANISM; R65.21 - SEVERE SEPSIS WITH SEPTIC SHOCK (3) High anion gap metabolic acidosis Code(s): E87.2 - ACIDOSIS (4) Metabolic acidosis Code(s): E87.2 - ACIDOSIS (5) Acute respiratory acidosis Code(s): E87.2 - ACIDOSIS (6) Hepatic failure Code(s): K72.90 - HEPATIC FAILURE, UNSPECIFIED WITHOUT COMA Qualifiers: Liver failure chronicity: acute (7) Acute blood loss anemia Code(s): D62 - ACUTE POSTHEMORRHAGIC ANEMIA (8) GI bleed Code(s): K92.2 - GASTROINTESTINAL HEMORRHAGE, UNSPECIFIED Qualifiers: GI bleed type/associated pathology: unspecified gastrointestinal hemorrhage type Qualified Code(s): K92.2 - Gastrointestinal hemorrhage, unspecified (9) ARF (acute renal failure) Code(s): N17.9 - ACUTE KIDNEY FAILURE, UNSPECIFIED Qualifiers: Acute renal failure type: unspecified Qualified Code(s): N17.9 - Acute kidney failure, unspecified (10) Thrombocytopenia Code(s): D69.6 - THROMBOCYTOPENIA, UNSPECIFIED (11) Hypothyroid Code(s): E03.9 - HYPOTHYROIDISM, UNSPECIFIED Qualifiers: (12) Pancreatitis, acute Code(s): K85.90 - ACUTE PANCREATITIS WITHOUT NECROSIS OR INFECTION, UNSP Qualifiers: Pancreatitis type: alcohol induced (13) DIC (disseminated intravascular coagulation) Code(s): D65 - DISSEMINATED INTRAVASCULAR COAGULATION (14) Hepatic encephalopathy Code(s): K72.90 - HEPATIC FAILURE, UNSPECIFIED WITHOUT COMA Assessment/Plan Plan -d/w sister about GOC -sister understood medical situation and prognosis -discussed comfort measures and she agreed -alert organ donation -stop pressors, antibiotics, HD, IVF -place on morphine gtt -compassionate wean -plan d/w Dr Gray and Dr Quigley
--- NOTE | 2018-05-14 11:36 | PN ---
Teaching Attending Note Name of Resident: Wilmar Holland ATTENDING PHYSICIAN STATEMENT I saw and evaluated the patient. I reviewed the resident's note and discussed the case with the resident. I agree with the resident's findings and plan as documented. SUBJECTIVE: Pt seen and examined in the ICU. Remains intubated, sedated on increasing levophed, vasopressin and phenylephrine gtts. Discussions with family, pt now DNR requesting comfort measures. OBJECTIVE: Vital Signs Period Temp Pulse Resp BP Sys/Aguero Pulse Ox Last 24 Hr 98.0 F-99.4 F 54-92 05-24 75-152/17-84 Intake & Output 05/11/18 05/12/18 05/13/18 05/14/18 23:59 23:59 23:59 23:59 Intake Total 3000 9577 9755 3230.6 Output Total 100 125 100 5 Balance 2900 9452 9655 3225.6 Weight 81.647 kg 87.997 kg 108.9 kg Gen: intubated, sedated, mottled Heart: RRR Lung: bilateral rhonchi Abd: soft, nontender Ext: mottled CBC, BMP 05/14/18 05:30 05/14/18 05:30 Active Medications Morphine Sulfate 100 mg/ (Sodium Chloride) 100 mls @ 1 mls/hr IVPB TITR [place]; Protocol Stop: 05/15/18 09:59 Last Admin: 05/14/18 10:54 Dose: 1 mg/hr, 1 mls/hr ASSESSMENT AND PLAN: Acute Respiratory Failure r/o Pneumonia Acute Pancreatitis Septic Shock Severe Metabolic Acidosis Acute Kidney Injury requiring HD Hyperkalemia improving Lactic Acidosis Liver Cirrhosis Alcohol Abuse Thrombocytopenia Coagulopathy GI Bleed Anemia - comfort measures initiated - titrate morphine to RR <20 critical care time spent in reviewing chart, evaluating patient and formulating plan 35 min
--- NOTE | 2018-05-14 11:46 | EKG ---
Test Reason : Blood Pressure : / mmHG Vent. Rate : 118 BPM Atrial Rate : 118 BPM P-R Int : 000 ms QRS Dur : 114 ms QT Int : 240 ms P-R-T Axes : 000 024 032 degrees QTc Int : 336 ms ATRIAL FIBRILLATION LOW VOLTAGE QRS NONSPECIFIC ST AND T WAVE ABNORMALITY ABNORMAL ECG Confirmed by BRIAN JARVIS MD ([id number]) on 05/14/2018 11:46:13 AM Referred By: ANDRA DINH DR Confirmed By:BRIAN JARVIS MD
--- NOTE | 2018-05-14 12:23 | PN ---
Progress Note (short form) - Note Progress Note: Discussed Pt.s' clinical status with Pt.'s boyfriend Ten and Pt.'s sister Felicia Andino. Decision was made to make the Pt. DNR. Decision was made to give comfort measure only for Pt. All medications were stopped except Morphine drip. Corneal reflex was absent, Pupils were non-reactive to light, no pulse was appreciated, no heart beat was heard, no respirations were observed after ventilator was turned off. Pt. was pronounced at 11:59am.
--- NOTE | 2018-05-14 15:59 | DS ---
Physical Examination Vital Signs: Vital Signs Temperature 36.8 C 05/14/18 10:00 Pulse Rate 69 05/14/18 10:00 Respiratory Rate 14 05/14/18 10:26 Blood Pressure 94/35 L 05/14/18 10:00 O2 Sat by Pulse Oximetry (%) 93 L 05/13/18 08:42 Labs: CBC, BMP 05/14/18 05:30 05/14/18 05:30 Discharge Summary Reason For Visit: HYPOTENSION HYPERKALEMIA INTOX Hospital Course: Ms Andino was a 57 year old female who presented to the ED with acute liver failure secondary to chronic alcohol abuse. She originally came in with decreased intake and became acutely ill with lactic acidosis and mixed metabolic acidosis requiring intubation. She was admitted to the ICU. She also had ARF with hyperkalemia. She was seen by nephrology and emergently dialyzed. She was seen by ID and started on broad spectrum antibiotics. Her blood pressure was supported with pressors. In spite of full management patient did not improve. Sister was made aware of the situation and she was made comfort measures only. Patient on 05/14. Condition: Critical - Instructions Referrals: Wilmar Jeong MD [Primary Care Provider] - Disposition: - Home Medications Comprehensive Discharge Medication List: Ambulatory Orders Folic Acid 1 mg PO DAILY #30 tablet 11/27/17 Levothyroxine [Synthroid -] 100 mcg PO DAILY@0700 #30 tablet 11/27/17 Magnesium Oxide [Mag-Ox -] 400 mg PO BID #60 tablet 11/27/17 Thiamine HCl [Vitamin B1 -] 100 mg PO HS #30 tablet 11/27/17 Lactulose (Oral Use) [Cephulac -] 20 gm PO TID udc 12/23/17 Vitamins (Sjr) - 1 tab PO DAILY tablet 12/23/17 Pantoprazole Sodium [Protonix -] 40 mg PO DAILY 05/11/18
[2018-05-15 10:17] LABS: ANTIGLOMERULAR BASEMENT MEN.AB 4 units (0-20)
[2018-05-16 00:08] LABS: ATYPICAL pANCA <1:20 titer (Neg:<1:20); C-ANCA <1:20 titer (Neg:<1:20); P-ANCA <1:20 titer (Neg:<1:20)
== END 2018-05-14 11:59 | disposition expired | DRG 720 ==
LOC: JER 15:16 → JERBED 05-12 00:02 → UNDOADMIN 05-12 00:34 → JERBED 05-12 00:34 → JICU 05-12 03:06
PROVIDERS: ADMIT Internal Medicine; ATTEND Internal Medicine
PROC: 5A1945Z Respiratory Ventilation, 24-96 Consecutive Hours (ICD-10-PCS; principal; 2018-05-12)
PROC: 0BH17EZ Insertion of Endotracheal Airway into Trachea, Via Natural or Artificial Opening (ICD-10-PCS; 2018-05-12)
PROC: 30233L1 Transfusion of Nonautologous Fresh Plasma into Peripheral Vein, Percutaneous Approach (ICD-10-PCS; 2018-05-12)
PROC: 30233K1 Transfusion of Nonautologous Frozen Plasma into Peripheral Vein, Percutaneous Approach (ICD-10-PCS; 2018-05-12)
PROC: 30233N1 Transfusion of Nonautologous Red Blood Cells into Peripheral Vein, Percutaneous Approach (ICD-10-PCS; 2018-05-12)
PROC: 30233R1 Transfusion of Nonautologous Platelets into Peripheral Vein, Percutaneous Approach (ICD-10-PCS; 2018-05-12)
PROC: 05HN33Z Insertion of Infusion Device into Left Internal Jugular Vein, Percutaneous Approach (ICD-10-PCS; 2018-05-12)
DX: A41.9 Sepsis, unspecified organism (principal); I95.9 Hypotension, unspecified; E87.5 Hyperkalemia; K72.90 Hepatic failure, unspecified without coma; R16.1 Splenomegaly, not elsewhere classified; K70.30 Alcoholic cirrhosis of liver without ascites; E16.2 Hypoglycemia, unspecified; E80.6 Other disorders of bilirubin metabolism; K21.9 Gastro-esophageal reflux disease without esophagitis; E03.9 Hypothyroidism, unspecified; E86.0 Dehydration; K92.2 Gastrointestinal hemorrhage, unspecified; K75.9 Inflammatory liver disease, unspecified; F10.929 Alcohol use, unspecified with intoxication, unspecified; N17.9 Acute kidney failure, unspecified; E87.2 Acidosis; E72.20 Disorder of urea cycle metabolism, unspecified; D69.6 Thrombocytopenia, unspecified; J96.02 Acute respiratory failure with hypercapnia; K85.90 Acute pancreatitis without necrosis or infection, unspecified; J18.9 Pneumonia, unspecified organism; R65.21 Severe sepsis with septic shock; D68.9 Coagulation defect, unspecified; R74.0 Nonspecific elevation of levels of transaminase and lactic acid dehydrogenase [LDH]; D62 Acute posthemorrhagic anemia
CPT/HCPCS: 31500; 36415; 36430; 36511; 36600; 70450-TC; 71045-TC-FY; 76700-TC; 76775-TC; 76856-TC; 80048; 80053; 80307; 81003; 81015; 82009; 82140; 82272; 82310; 82375; 82550; 82553; 82803; 82962; 83050; 83516; 83520; 83605; 83690; 83735; 83930; 84100; 84155; 84165; 84443; 84478; 84484; 85025; 85027; 85384; 85610; 85730; 86038; 86225; 86256; 86704; 86705; 86706; 86708; 86803; 86850; 86900; 86901; 86922; 87040; 87086; 87186; 87340; 87522; 93005; 93010; 93306-TC; 94002; 94640; 99285-25; G0480; J7030; P9017; P9034; P9038; P9047; P9058